=== PATIENT | female | born 1980 | race Caucasian/White ===

== ENCOUNTER 2020-01-03 04:16 | Emergency (ER) | payer OTHER ==
[~2020-01-03] VITALS: Ht 152.4 cm; Wt 47.6 kg
--- OUTSIDE RECORDS SUMMARY | ~2020-01-03 | XMS | Encounter Summary ---
Demographics + + + | Address | [address] | | | [place] [address] | + + + | Home Phone | | + + + | Preferred Language | Unknown | + + + | Marital Status | Single | + + + | Bahai Affiliation | 1013 | + + + | Race | Unknown | + + + | Ethnic Group | Unknown | + + + Author + + + | Author | [facility] | | | and [place] | + + + | Organization | [facility] | | | and [place] | + + + | Address | Unknown | + + + | Phone | Unavailable | + + + Support + + +---------+ + | Name | Relationship | Address | Phone | + + +---------+ + | Provided None | ECON | Unknown | | + + +---------+ + Care Team Providers + +------+ + | Care Reforestation Worker Name | Role | Phone | + +------+ + | Isabela Gage DO | PCP | | + +------+ + Reason for Visit + + + | Reason | Comments | + + + | Arm Pain | | + + + Encounter Details +--------+ + + + + | Date | Type | Department | Care Team | Description | +--------+ + + + + | 12/28/ | Emergency | [facility] | Bogdan, | Skin infection | | 2019 | | [facility] | Deuce Sainz MD [address] | (Primary Dx) | | | | CENTER [address] | [address] [place] | | | | | [place], [place] | [place] [address] | | | | | [address] | [phone] | | | | | [phone] | | | +--------+ + + + + Social History + + + +--------+------+ | Tobacco Use | Types | Packs/Day | Years | Date | | | | | Used | | + + + +--------+------+ | Current Every Day | Cigarettes | 0.5 | 20 | | | Smoker | | | | | + + + +--------+------+ + +---+---+---+ | Smokeless Tobacco: | | | | | Never Used | | | | + +---+---+---+ + + +---------+ + | Alcohol Use | Drinks/Week | oz/Week | Comments | + + +---------+ + | Yes | 1 Cans of beer | 1.0 | | + + +---------+ + + + + | Sex Assigned at | Date Recorded | | | | + + + | Not on file | | + + + + + + + | Job Start Date | Occupation | Industry | + + + + | Not on file | Not on file | Not on file | + + + + + + + + | Travel History | Travel Start | Travel End | + + + + + + | No recent travel history available. | + + documented as of this encounter Last Filed Vital Signs + + + + + | Vital Sign | Reading | Time Taken | Comments | + + + + + | Blood Pressure | 114/76 | 12/29/2019 5:07 PM | | | | | PDT | | + + + + + | Pulse | 123 | 12/29/2019 5:19 PM | | | | | PDT | | + + + + + | Temperature | 37.1 C (98.8 F) | 12/29/2019 5:07 PM | | | | | PDT | | + + + + + | Respiratory Rate | 18 | 12/29/2019 5:07 PM | | | | | PDT | | + + + + + | Oxygen Saturation | 100% | 12/29/2019 5:19 PM | | | | | PDT | | + + + + + | Inhaled Oxygen | - | - | | | Concentration | | | | + + + + + | Weight | 45.6 kg (100 lb 8.5 | 12/29/2019 5:07 PM | | | | oz) | PDT | | + + + + + | Height | 152.4 cm (5') | 12/29/2019 5:07 PM | | | | | PDT | | + + + + + | Body Mass Index | 19.63 | 12/29/2019 5:07 PM | | | | | PDT | | + + + + + documented in this encounter Discharge Instructions Instructions Deuce Mcfadden MD - 12/29/2019Take antibiotics as prescribed documented in this encounter Medications at Time of Discharge + + + +---------+ + + | Medication | Sig | Dispensed | Refills | Start | End Date | | | | | | Date | | + + + +---------+ + + | albuterol 90 | Inhale 2 puffs into | 1 | 0 | 03/05/20 | | | mcg/puff inhaler | the lungs every 6 | Inhaler | | 18 | | | | hours as needed for | | | | | | | Wheezing. | | | | | + + + +---------+ + + | baclofen | Take 1 tablet by | 60 | 0 | 10/04/19 | | | (LIORESAL) 20 mg | mouth 3 times daily. | tablet | | 19 | | | tablet | Prn | | | | | + + + +---------+ + + | cephalexin | Take 1 capsule by | 40 | 0 | 12/29/19 | | | (KEFLEX) 500 mg | mouth 4 times daily | capsule | | 20 | 0 | | capsule | for 10 days. | | | | | + + + +---------+ + + | cetirizine | Take 1 tablet by | | 1 | 08/23/20 | | | (ZYRTEC) 10 mg | mouth Daily. | | | 17 | | | tablet | | | | | | + + + +---------+ + + | clindamycin | Take 1 capsule by | 40 | 0 | 12/29/19 | | | (CLEOCIN) 300 MG | mouth 4 times daily | capsule | | 20 | 0 | | capsule | for 10 days. | | | | | + + + +---------+ + + | clonazePAM | take 1/2 tablet by | | 0 | 11/13/19 | | | (KLONOPIN) 2 MG | mouth daily if | | | 20 | | | tablet | needed for SEVERE | | | | | | | ANXIETY (MUST LAST | | | | | | | 30 DAYS) | | | | | + + + +---------+ + + | desvenlafaxine | take 1 tablet by | | 0 | 11/16/19 | | | (PRISTIQ) 25 mg ER | mouth daily | | | 20 | | | tablet | | | | | | + + + +---------+ + + | fluticasone | 1 spray by Nasal | 16 g | 2 | 06/25/20 | | | (FLONASE) 50 | route Daily. | | | 18 | | | mcg/nasal | | | | | | | sprayIndications: | | | | | | | Allergic rhinitis, | | | | | | | unspecified | | | | | | | seasonality, | | | | | | | unspecified trigger | | | | | | + + + +---------+ + + | gabapentin | take 1 tablet by | 90 | 2 | 10/11/19 | | | (NEURONTIN) 800 MG | mouth three times a | tablet | | 19 | | | tablet | day AND AN | | | | | | | ADDITIONAL 1 1/2 | | | | | | | TABLETS AT BEDTIME | | | | | + + + +---------+ + + | hydrOXYzine | Take 1 capsule by | 21 | 0 | 06/30/20 | | | (VISTARIL) 50 MG | mouth 3 times daily | capsule | | 19 | | | capsule | as needed for | | | | | | | Anxiety. | | | | | + + + +---------+ + + | LORazepam (ATIVAN) | take 1/2 tablet by | | 0 | 03/14/20 | | | 0.5 mg tablet | mouth OTHER | | | 19 | | | | NEEDED FOR ANXIETY | | | | | + + + +---------+ + + | metFORMIN | 1000 mg day twice | | 0 | 09/09/19 | | | (GLUCOPHAGE-XR) 500 | daily | | | 17 | | | mg 24 hr tablet | | | | | | + + + +---------+ + + | progesterone | Take 1 capsule by | | 0 | 07/23/20 | | | (PROMETRIUM) 100 mg | mouth Daily. For 10 | | | 17 | | | capsule | days each month | | | | | | | prior to menses | | | | | + + + +---------+ + + | sertraline | Take 1 tablet by | 90 | 0 | 07/24/20 | | | (ZOLOFT) 100 mg | mouth Daily. | tablet | | 18 | | | tablet | | | | | | + + + +---------+ + + | spironolactone | Take 1 tablet by | | 1 | 09/19/19 | | | (ALDACTONE) 50 mg | mouth Daily. | | | 18 | | | tablet | | | | | | + + + +---------+ + + | SUMAtriptan | Take 100 mg by mouth | | 0 | 12/03/19 | | | (IMITREX) 100 mg | as needed. | | | 20 | | | tablet | | | | | | + + + +---------+ + + | traZODone | take 1-2 tablets by | | 0 | 10/22/19 | | | (DESYREL) 100 mg | mouth at bedtime | | | 20 | | | tablet | | | | | | + + + +---------+ + + documented as of this encounter Plan of Treatment + +------+--------+ + + | Name | Type | Priori | Associated Diagnoses | Date/Time | | | | ty | | | + +------+--------+ + + | ED INFORMATION | MARGAUX | Routin | | 12/29/2019 4:43 PM | | EXCHANGE | | e | | PDT | + +------+--------+ + + documented as of this encounter Procedures + +--------+ + + + | Procedure Name | Priori | Date/Time | Associated Diagnosis | Comments | | | ty | | | | + +--------+ + + + | ED INFORMATION | Routin | 12/29/2019 | | | | EXCHANGE | e | 4:43 PM | | | | | | PDT | | | + +--------+ + + + +---+--------+ | | | | | Proced | | | ure | | | Note - | | | Sky, | | | Lab In | | | | | | Hlseve | | | n - | | | 12/28/ | | | 2019 | | | 4:44 | | | PM PDT | | | | | | Format | | | ting | | | of | | | this | | | note | | | might | | | be | | | differ | | | ent | | | from | | | the | | | origin | | | al.COL | | | LECTIV | | | E?NOTI | | | FICATI | | | ON?/ | | | | | | 0 | | | 16:42? | | | STROE, | | | | | | NATALY | | | | | | J?MRN: | | | | | | [id number] | | | [id number] | | | riteri | | | a Met | | | Care | | | Guidel | | | tameka | | | 4 | | | visits | | | in 60 | | | 3 | | | Facili | | | ties | | | in | | | 60Secu | | | rity | | | and | | | Safety | | | No | | | recent | | | | | | Securi | | | ty | | | Events | | | | | | curren | | | tly on | | | | | | fileED | | | Care | | | Guidel | | | tameka | | | from | | | [facility] | | | ys - | | | [place] | | | laLast | | | | | | Update | | | d: | | | 4/8/20 | | | 10:08 | | | AM | | | Care | | | Recomm | | | endati | | | on:Rec | | | eiving | | | | | | mental | | | | | | health | | | | | | servic | | | es | | | throug | | | h | | | [facility] | | | ys. | | | Please | | | | | | contac | | | t | | | [facility] | | | ys for | | | any | | | mental | | | | | | health | | | | | | concer | | | ns:Pen | | | dleton | | | | | | [phone] | | [phone] | | | Hermis | | | ton | | | [phone] | | | [phone] | | | Crisis | | | Line | | | [phone] | | | [phone] | | | These | | | are | | | guidel | | | tameka | | | and | | | the | | | provid | | | er | | | should | | | | | | exerci | | | se | | | clinic | | | al | | | judgme | | | nt | | | when | | | provid | | | ing | | | care.P | | | rescri | | | ption | | | Drug | | | Report | | | (12 | | | Mo.)Rx | | | | | | Detail | | | sFill | | | Date | | | Drug | | | Descri | | | ption | | | Qty. | | | Prescr | | | iber | | | CS MED | | | | | | 2020-0 | | | 4-06 | | | CLONAZ | | | EPAM 2 | | | MG | | | TABLET | | | 15 | | | ISABELA | | | | | | OLSWAN | | | APRIL 4 | | | 0 Rx | | | Summar | | | yMetri | | | c | | | Count | | | CS | | | II-V | | | Rx 1 | | | CS-II | | | Rx 0 | | | Quanti | | | ty | | | Dispen | | | sed 15 | | | | | | Unique | | | | | | Prescr | | | ibers | | | 1 | | | Unique | | | | | | Pharma | | | cies 1 | | | | | | Benzos | | | 1 | | | Opioid | | | s 0 | | | Long | | | Acting | | | | | | Opioid | | | s 0 | | | E.D. | | | Visit | | | Count | | | (12 | | | mo.)Fa | | | cility | | | | | | Visits | | | Low | | | Acuity | | | Good | | | Shephe | | | rd | | | Health | | | 1 0 | | | [facility] | | | | | | Health | | | and | | | Scienc | | | e | | | Univer | | | sity 2 | | | 0 | | | [facility] | | | [facility] | | | idge | | | Hospit | | | al 1 0 | | | | | | [facility] | | | | | | Region | | | al | | | Medica | | | l | | | Center | | | 3 0 | | | Provid | | | ence | | | St. | | | [place] | | | Medica | | | l | | | Center | | | 12 0 | | | Total | | | 19 0 | | | Note: | | | Visits | | | | | | indica | | | te | | | total | | | known | | | visits | | | . | | | Medica | | | id Low | | | | | | Acuity | | | Dx | | | are | | | the | | | number | | | of | | | primar | | | y | | | diagno | | | ses on | | | the | | | Medica | | | id's | | | Low | | | Acuity | | | dx | | | list. | | | | | | Recent | | | | | | Emerge | | | ncy | | | Depart | | | ment | | | Visit | | | [facility] | | | yShowi | | | ng 10 | | | most | | | recent | | | | | | visits | | | out | | | of 19 | | | in the | | | past | | | 12 | | | months | | | Date | | | Facili | | | ty | | | City | | | State | | | Type | | | Diagno | | | ses or | | | Chief | | | | | | Compla | | | int | | | Apr | | | 26, | | | 2020 | | | Provid | | | ence | | | St. | | | [place] | | | [facility] | | | [place] | | | [place] | | | Emerge | | | ncy | | | | | | Dizzin | | | ess; | | | Arm | | | Pain | | | Apr | | | 19, | | | 2020 | | | [facility] | | | [facility] | | | idge | | | H. | | | [place] | | | [place] | | | Emerge | | | ncy | | | Chief | | | Compla | | | int: | | | MULTIP | | | LE | | | COMPLA | | | INTS | | | Apr 8, | | | 2020 | | | [facility] | | | | | | Health | | | and | | | Scienc | | | e | | | Univer | | | sity | | | [place] | | | [place] | | | Emerge | | | ncy | | | | | | 10,800 | | | . | | | Medica | | | tion | | | reques | | | t | | | 18,400 | | | . | | | Pain, | | | unspec | | | ified | | | | | | 18,400 | | | . | | | Other | | | injury | | | of | | | unspec | | | ified | | | body | | | region | | | , | | | initia | | | l | | | encoun | | | ter | | | Apr 8, | | | 2020 | | | [facility] | | | | | | Health | | | and | | | Scienc | | | e | | | Univer | | | sity | | | [place] | | [place] | | | Emerge | | | ncy | | | | | | 10,800 | | | . | | | Infect | | | ion | | | | | | 10,800 | | | . L | | | Arm/He | | | adache | | | | | | 18,400 | | | . | | | Person | | | al | | | histor | | | y of | | | other | | | diseas | | | es of | | | the | | | nervou | | | s | | | system | | | and | | | | | | 18,400 | | | . | | | Cutane | | | ous | | | absces | | | s, | | | unspec | | | ified | | | | | | 18,400 | | | . | | | Other | | | stimul | | | ant | | | abuse, | | | | | | uncomp | | | licate | | | d | | | 18,400 | | | . | | | Parest | | | hesia | | | of | | | skin | | | Apr 5, | | | 2020 | | | [facility] | | | | | | Region | | | al | | | [facility] | | | [place] | | | [place] | | | Emerge | | | ncy | | | | | | Spasms | | | | | | Other | | | stimul | | | ant | | | abuse, | | | | | | uncomp | | | licate | | | d | | | Other | | | proble | | | ms | | | relate | | | d to | | | lifest | | | yle | | | Apr 5, | | | 2020 | | | Provid | | | ence | | | St. | | | [place] | | | [facility] | | | [place] | | | [place] | | | Emerge | | | ncy | | | | | | Halluc | | | inatio | | | ns | | | Other | | | stimul | | | ant | | | abuse, | | | | | | uncomp | | | licate | | | d Apr | | | 3, | | | 2020 | | | Provid | | | ence | | | St. | | | [place] | | | [facility] | | | [place] | | | [place] | | | Emerge | | | ncy | | | | | | Medica | | | l | | | Compla | | | cation | | | s from | | | alc | | | and | | | drug | | | abuse | | | | | | Spasms | | | | | | Other | | | stimul | | | ant | | | abuse, | | | | | | uncomp | | | licate | | | d Mar | | | 29, | | | 2020 | | | Provid | | | ence | | | St. | | | [place] | | | [facility] | | | [place] | | | [place] | | | Emerge | | | ncy | | | | | | CP,sob | | | | | | Pain | | | | | | Tachyc | | | ardia | | | | | | Restle | | | ssness | | | and | | | agitat | | | ion | | | Other | | | | | | stimul | | | ant | | | use, | | | unspec | | | ified | | | with | | | intoxi | | | cation | | | , | | | unspec | | | ifi | | | Panic | | | | | | disord | | | er | | | [episo | | | dic | | | paroxy | | | smal | | | anxiet | | | y] | | | Mar | | | 18, | | | 2020 | | | Provid | | | ence | | | St. | | | [place] | | | [facility] | | | [place] | | | [place] | | | Emerge | | | ncy | | | | | | needle | | | stuck | | | in | | | arm | | | | | | Foreig | | | n Body | | | in | | | Skin | | | | | | Other | | | injury | | | of | | | unspec | | | ified | | | body | | | region | | | , | | | initia | | | l | | | encoun | | | ter | | | Mar | | | 14, | | | 2020 | | | [facility] | | | | | | Region | | | al | | | [facility] | | | [place] | | | [place] | | | Emerge | | | ncy | | | | | | Prurit | | | is | | | Advers | | | e | | | effect | | | of | | | unspec | | | ified | | | drugs, | | | | | | medica | | | ments | | | and | | | biolog | | | ic | | | Prurit | | | us, | | | unspec | | | ified | | | | | | Urtica | | | rosario, | | | unspec | | | ified | | | | | | Recent | | | | | | Inpati | | | ent | | | Visit | | | [facility] | | | yNo | | | record | | | ed | | | inpati | | | ent | | | visits | | | . Care | | | | | | TeamPr | | | ovider | | | | | | Specia | | | lty | | | Phone | | | Fax | | | Servic | | | e | | | Dates | | | ConneX | | | ions, | | | Gasper | | | o | | | [facility] | | | -, | | | [facility] | | | Commun | | | ity | | | Health | | | | | | Worker | | | ([phone]) | | | | | | [phone] | | | [phone] | | | Mar | | | 14, | | | 2020 - | | | | | | Curren | | | t | | | [facility] | | | tive | | | Portal | | | This | | | patien | | | t has | | | regist | | | ered | | | at the | | | | | | Provid | | | ence | | | St. | | | [place] | | | Medica | | | l | | | Center | | | | | | Emerge | | | ncy | | | Depart | | | ment | | | For | | | more | | | inform | | | ation | | | visit: | | | | | | https: | | | //prov | | | .colle | | | ctivem | | | edical | | | [email or web address]/n | | | otify/ | | | [email or web address] | | | [email or web address] | | | [email or web address] | | | [email or web address] | | | [email or web address] | | | [email or web address] | | | | | | PLEASE | | | NOTE: | | | 1. | | | Any | | | care | | | recomm | | | endati | | | ons | | | and | | | other | | | clinic | | | al | | | inform | | | ation | | | are | | | provid | | | ed as | | | guidel | | | tameka | | | or for | | | | | | histor | | | ical | | | purpos | | | es | | | only, | | | and | | | provid | | | ers | | | should | | | | | | exerci | | | se | | | their | | | own | | | clinic | | | al | | | judgme | | | nt | | | when | | | provid | | | ing | | | care. | | | 2. | | | You | | | may | | | only | | | use | | | this | | | inform | | | ation | | | for | | | purpos | | | es of | | | treatm | | | ent, | | | paymen | | | t or | | | health | | | care | | | operat | | | ions | | | activi | | | ties, | | | and | | | subjec | | | t to | | | the | | | limita | | | tions | | | of | | | applic | | | able | | | Colle[facility] | | | tive | | | Polici | | | es. | | | 3. | | | You | | | should | | | | | | consul | | | t | | | direct | | | ly | | | with | | | the | | | organi | | | zation | | | that | | | provid | | | ed a | | | care | | | guidel | | | ine or | | | other | | | | | | clinic | | | al | | | histor | | | y with | | | any | | | questi | | | ons | | | about | | | additi | | | onal | | | inform | | | ation | | | or | | | accura | | | cy or | | | comple | | | teness | | | of | | | inform | | | ation | | | provid | | | ed.? | | | 2020 | | | [facility] | | | tive | | | Medica | | | l | | | [employer] | | | logies | | | , Inc[employer] | | | - | | | [email or web address] | | | llecti | | | vemedi | | | [email or web address] | | | m | +---+--------+ documented in this encounter Visit Diagnoses + + | Diagnosis | + + | Skin infection - Primary Unspecified local infection of skin and subcutaneous tissue | + + documented in this encounter Administered Medications + +--------+ +--------+------+------+ | Medication Order | MAR | Action | Dose | Rate | Site | | | Action | Date | | | | + +--------+ +--------+------+------+ | cephalexin (KEFLEX) capsule 500 | Given | 12/29/19 | 500 mg | | | | mg 500 mg, Oral, ONCE, Sun | | 20 5:55 | | | | | 12/29/19 at 1730, For 1 dose, | | PM PDT | | | | | Indications: NON-PURULENT SKIN | | | | | | | AND SOFT TISSUE INFECTION | | | | | | + +--------+ +--------+------+------+ +---+---+ | | | +---+---+ + +-------+ +--------+---+---+ | clindamycin (CLEOCIN) capsule | Given | 12/29/19 | 300 mg | | | | 300 mg 300 mg, Oral, ONCE, Sun | | 20 5:55 | | | | | 12/29/19 at 1730, For 1 dose, | | PM PDT | | | | | Indications: NON-PURULENT SKIN | | | | | | | AND SOFT TISSUE INFECTION | | | | | | + +-------+ +--------+---+---+ +---+---+ | | | +---+---+ documented in this encounter"
--- OUTSIDE RECORDS SUMMARY | ~2020-01-03 | XMS | Encounter Summary ---
Demographics + + + | Address | [address] | | | [place] [address] | + + + | Home Phone | | + + + | Preferred Language | Unknown | + + + | Marital Status | Single | + + + | Judaism Affiliation | 1013 | + + + | Race | Unknown | + + + | Ethnic Group | Unknown | + + + Author + + + | Author | [facility] | | | and [place] | + + + | Organization | [facility] | | | and [place] | [...] Team Providers + +------+ + | Care Nail Welter Name | Role | Phone | + +------+ + | Katy Sanford MD | PCP | | + +------+ + Reason for Visit +---------+ + | Reason | Comments | +---------+ + | No Show | | +---------+ + Encounter Details +--------+ + + + + | Date | Type | Department | Care Team | Description | +--------+ + + + + | 10/09/ | Telephone | [facility] [place] | Gill Cantu, | No Show | | 2019 | | [facility] | Aide | | | | | THERAPY [address] | | | | | [address] [place] | | | | | | [address] | | | | | | [phone] | | | +--------+ + + + [...]
--- OUTSIDE RECORDS SUMMARY | ~2020-01-03 | XMS | Encounter Summary ---
Demographics + + + | Address | [address] | | | [place] [address] | + + + | Home Phone | | + + + | Preferred Language | Unknown | + + + | Marital Status | Single | + + + | Religion Affiliation | 1013 | + + + | Race | Unknown | + + + | Ethnic Group | Unknown | + + + Author + + + | Author | [facility] | | | and [place] | + + + | Organization | [facility] | | | and [...] Team Providers + +------+ + | Care Leaf Conditioner Helper Name | Role | Phone | + +------+ + PCP | Unavailable | + +------+ + Encounter Details +--------+ + + + + | Date | Type | Department | Care Team | Description | +--------+ + + + + | 09/30/ | [facility] | [facility] | Edi Sprague | | | 2010 | Encounter | MED CTR LABORATORY | MD [address] | | | | | [address] [place] | [place] | | | | | [place] | [address] | | | | | [address] | | | | | | [phone] | | | +--------+ + + + [...]
--- OUTSIDE RECORDS SUMMARY | ~2020-01-03 | XMS | Encounter Summary ---
Demographics + + + | Address | [address] | | | [place] [address] | + + + | Home Phone | | + + + | Preferred Language | Unknown | + + + | Marital Status | Single | + + + | Buddhism Affiliation | 1013 | + + + | Race | Unknown | + + + | Ethnic Group | Unknown | + + + Author + + + | Author | [facility] | | | and [place] | + + + | Organization | [facility] | | | and [...] Team Providers + +------+ + | Care Tdp Displays Analyst Name | Role | Phone | [...] Refill | | 2019 | | [facility] | [address] | | | | | [address] | [place] | | | | | [place], [place] | [address] | | | | | [address] | | | | | | [phone] | | | +--------+--------+ + + + [...]
--- OUTSIDE RECORDS SUMMARY | ~2020-01-03 | XMS | Encounter Summary ---
Demographics + + + | Address | [address] | | | [place] [address] | + + + | Home Phone | | + + + | Preferred Language | Unknown | + + + | Marital Status | Single | + + + | Methodist Affiliation | 1013 | + + + | Race | Unknown | + + + | Ethnic Group | Unknown | + + + Author + + + | Author | [facility] | | | and [place] | + + + | Organization | [facility] | | | and [place] | + [...] Team Providers + +------+ + | Care Fence Supervisor Name | Role | Phone | + +------+ + PCP | Unavailable | + +------+ + Encounter Details +--------+ + + + + | Date | Type | Department | Care Team | Description | +--------+ + + + + | 11/08/ | [facility] | [facility] | Edi Sprague | | | 2010 | Encounter | MED CTR MP INTRA OP | F, MD [address] [facility] | | | | | [address] | [place] | | | | | [place] | [address] | | | | | [address] | | | | | | [phone] | | | +--------+ + + + [...] + + + | CBC WITH | Routin | 11/08/2010 | | Results for this | | DIFFERENTIAL | e | 9:49 AM | | procedure are in the | | | | PST | | results section. | + +--------+ + + + documented in this encounter Results CBC with Differential (11/08/2010 9:49 AM PST) + +---------+ + + + | Component | Value | Ref Range | Performed | Pathologist | | | | | At | Signature | + +---------+ + + + | WBC | 6.6 | 4.0 - 11.0 K/uL | [facility] | | | | | | [facility] | | | | | | [facility] | | | | | | [facility] - | | | | | | LABORATORY | | + +---------+ + + + | RBC | 3.78 | 3.70 - 5.20 | [facility] | | | | | M/uL | [facility] | | | | | | MEDICAL | | | | | | C[facility] - | | | | | | LABORATORY | | + +---------+ + + + | Hemoglobin | 12.4 | 11.5 - 16.0 | [facility] | | | | | gm/dL | [facility] | | | | | | MEDICAL | | | | | | CENTER - | | | | | | LABORATORY | | + +---------+ + + + | Hematocrit | 37.0 | 34.0 - 47.0 % | [facility] | | | | | | [facility] | | | | | | [facility]ICAL | | | | | | CENTER - | | | | | | LABORATORY | | + +---------+ + + + | MCV | 97.8 | 83.0 - 101.0 fL | [facility] | | | | | | [facility] | | | [facility] | | [facility] | | | | | | C[facility] - | | | | | | LABORATORY | | + +---------+ + + + | MCH | 32.8 | 28.0 - 35.0 pg | [facility] | | | | | | [facility] | [facility] | | | | | | [facility] - | | | | | | LABORATORY | | + +---------+ + + + | MCHC | 33.6 | 32.0 - 36.0 | [facility] | | | | | g/dL | [facility] | | | | | | [facility] | | | | | | CENTER - | | | | | | LABORATORY | | + +---------+ + + + | RDW-CV | 12.7 | <15.0 % | [facility] | | | | | | [facility] | | | | | | [facility] | | | | | | [facility] - | | | | | | LABORATORY | | + +---------+ + + + | Platelet | 212 | 140 - 440 K/uL | [facility] | | | Count | | | [facility] | | | | | | [facility] | | | | | | CENTER - | | | | | | LABORATORY | | + +---------+ + + + | % | 64.8 | 45 - 82 % | [facility] | | | Neutrophils | | | [facility] | | | | | | [facility]ICAL | | | | | | CENTER - | | | | | | LABORATORY | | + +---------+ + + + | % | 23.8 | 20 - 45 % | [facility] | | | Lymphocytes | | | [facility] | | | | | | [facility]ICAL | | | | | | CENTER - | | | | | | LABORATORY | | + +---------+ + + + | % Monocytes | 7.5 | 4 - 12 % | [facility] | | | | | | [facility] | | | | | | [facility] | | | | | | CENTER - | | | | | | LABORATORY | | + +---------+ + + + | % | 1.6 | 0 - 5 % | [facility] | | | Eosinophils | | | [facility] | | | | | | [facility] | | | | | | CENTER - | | | | | | LABORATORY | | + +---------+ + + + | % Basophils | 2.3 (H) | 0 - 1 % | [facility] | | | | | | [facility] | | | | | | [facility] | | | | | | [facility] - | | | | | | LABORATORY | | + +---------+ + + + | Absolute | 4.2 | 1.8 - 8.5 K/uL | [facility] | | | Neutrophils | | | [facility] | | | | | | [facility]ICAL | | | | | | CENTER - | | | | | | LABORATORY | | + +---------+ + + + | Absolute | 1.6 | 0.6 - 3.2 K/uL | [facility] | | | Lymphocytes | | | [facility] | | | | | | [facility]ICAL | | | | | | CENTER - | | | | | | LABORATORY | | + +---------+ + + + | Absolute | 0.5 | 0.0 - 1.0 K/uL | [facility] | | | Monocytes | | | [facility] | | | | | | [facility]ICAL | | | | | | CENTER - | | | | | | LABORATORY | | + +---------+ + + + | Absolute | 0.1 | 0.0 - 0.4 K/uL | [facility] | | | Eosinophils | | | [facility] | | | | | | [facility] | | | | | | CENTER - | | | | | | LABORATORY | | + +---------+ + + + | Absolute | 0.1 | 0.0 - 0.1 K/uL | [facility] | | | Basophils | | | [facility] | | | | | | MEDICAL | | | | | | CENTER - | | | | | | LABORATORY | | + +---------+ + + + + + | Specimen | + + | | + + + + + + + | Performing | Address | City/State/Zipcode | Phone Number | | Organization | | | | + + + + + | [facility] | [address] | [place] | [phone] | | [facility] | | [address] | | | - LABORATORY | | | | + + + + + | [facility] | [address] | [place], [place] | | | [facility] | | [address] [place] [address] | | | - LABORATORY | | | | + + + + + documented in this encounter Visit Diagnoses Not on filedocumented in this encounter"
--- OUTSIDE RECORDS SUMMARY | ~2020-01-03 | XMS | Encounter Summary ---
Demographics + + + | Address | [address] | | | [place] [address] | + + + | Home Phone | | + + + | Preferred Language | Unknown | + + + | Marital Status | Single | + + + | Jew Affiliation | 1013 | + + + | Race | Unknown | + + + | Ethnic Group | Unknown | + + + Author + + + | Author | [facility] | | | and [place] | + + + | Organization | [facility] | | | and [place] [...] Team Providers + +------+ + | Care Line Patrolman Name | Role | Phone | + +------+ + PCP | Unavailable | + +------+ + Encounter Details +--------+ + + + + | Date | Type | Department | Care Team | Description | +--------+ + + + + | 04/09/ | Hospital | [facility] | Saleem Toure, | | | 2011 | Encounter | MED CTR EMERGENCY | [address] | | | | | CENTER [address] | [facility] | | | | | [place] | [place] [address] | | | | | [address] | [phone] | | | | | [phone] | | | +--------+ + + + [...]
--- OUTSIDE RECORDS SUMMARY | ~2020-01-03 | XMS | Encounter Summary ---
Demographics + + + | Address | [address] | | | [place] [address] | + + + | Home Phone | | + + + | Preferred Language | Unknown | + + + | Marital Status | Single | + + + | Rastafari Affiliation | 1013 | + + + | Race | Unknown | + + + | Ethnic Group | Unknown | + + + Author + + + | Author | [facility] | | | and [place] | + + + | Organization | [facility] | | | and [place] | [...] Team Providers + +------+ + | Care Datastage Consultant Name | Role | Phone | + +------+ + | No, Physician | PCP | Unavailable | + +------+ + Encounter Details +--------+ + + + + | Date | Type | Department | Care Team | Description | +--------+ + + + + | 08/12/ | [facility] | [facility] | Edi Sprague | Normal , | | 2014 | Encounter | [address] | MD José [address] | second trimester | | | | [place] | [place] | | | | | [address] | [address] | | | | | [phone] | | | +--------+ + + + + Social History + +-------+ +--------+------+ | Tobacco Use | Types | Packs/Day | Years | Date | | | | | Used | | + +-------+ +--------+------+ | Current Every Day | | 0.25 | 15 | | | Smoker | | | | | + +-------+ +--------+------+ + + +---------+ + | Alcohol Use | Drinks/Week | oz/Week | Comments | + + +---------+ + | No | | | | + + +---------+ + + [...] + + documented as of this encounter Medications at Time of Discharge + + + +---------+--------+ + | Medication | Sig | Dispensed | Refills | Start | End Date | | | | | | Date | | + + + +---------+--------+ + | calcium carbonate | Take 2 tablets by | | 0 | | | | (TUMS) 500 mg | mouth Daily. | | | | 7 | | chewable tablet | | | | | | + + + +---------+--------+ + | 27-0.8 mg | Take 1 tablet by | | 0 | | | | multivitamin tablet | mouth Daily. | | | | 7 | + + + +---------+--------+ + | promethazine | Take 12.5 mg by | | 0 | | | | (PHENERGAN) 12.5 MG | mouth every 6 hours | | | | 6 | | tablet | as needed for | | | | | | | Nausea. | | | | | + + + +---------+--------+ + documented as of this encounter Plan of Treatment Not on filedocumented as of this encounter Procedures + +--------+ + + + | Procedure Name | Priori | Date/Time | Associated Diagnosis | Comments | | | ty | | | | + +--------+ + + + | US OB FOLLOW UP | Routin | 08/12/2015 | Normal , | Results for this | | TRANSABDOMINAL | e | 1:25 PM | second trimester | procedure are in the | | | | PST | | results section. | + +--------+ + + + documented in this encounter Results US OB Follow Up Transabdominal (08/12/2015 1:25 PM PST) + + | Specimen | + + | | + + + + + | Narrative | Performed At | + + + | EXAM: US OB FOLLOW UP TRANSABDOMINAL and 08/12/2015 1:25 PM | [facility] | | HISTORY: NORMAL . COMPARISON: June 22, 2015. | | | FINDINGS: BPD: 68.5 mm: 27 weeks 4 days HC: 253.2 mm: 27 weeks 3 | | | days AC: 229.1 mm: 27 weeks 2 days FL: 51.7 mm: 27 weeks 4 days | | | EFW: 1074 g, corresponding to 43rd percentile by LMP and 37 percentile | | | by ultrasound. HC/AC ratio: 1.11 Composite estimated | | | gestational age by U/S: 27 weeks 3 days correlating well with LMP | | | dating of 27 weeks 2 days heart rate: 150 bpm, with a normal | | | cardiac rhythm. The cervix is long and closed, measuring 5 cm in | | | length. The placenta is posterior, without evidence of placenta | | | previa. The fetus is in cephalic. SANJUANITA = 17.7 cm. | | | Active motion is seen. The umbilical cord insertion is well | | | seen and is unremarkable. IMPRESSION - Single live | | | intrauterine gestation. Good correlation to clinical and | | | sonographic dating. Cord insertion adequately visualized on this | | | study. Dictated and Signed by: Hayden Gomez MD | | | Electronically signed: 08/12/2015 3:54 PM | | + + + + + | Procedure Note | + + | Sky, Rad Results In - 08/12/2015 3:57 PM PST EXAM: US OB FOLLOW UP TRANSABDOMINAL | | and 08/12/2015 1:25 PMHISTORY: NORMAL . COMPARISON: June 22 | | 2014.FINDINGS:BPD: 68.5 mm: 27 weeks 4 daysHC: 253.2 mm: 27 weeks 3 daysAC: 229.1 mm: 27 | | weeks 2 daysFL: 51.7 mm: 27 weeks 4 daysEFW: 1074 g, corresponding to 43rd percentile | | by LMP and 37 percentile byultrasound.HC/AC ratio: 1.11Composite estimated gestational | | age by U/S: 27 weeks 3 days correlating wellwith LMP dating of 27 weeks 2 daysFetal | | heart rate: 150 bpm, with a normal cardiac rhythm.The cervix is long and closed, | | measuring 5 cm in length.The placenta is posterior, without evidence of placenta previa. | | The fetus is in cephalic. SANJUANITA = 17.7 cm. Active motion is seen. The umbilical | | cord insertion is well seen and isunremarkable.IMPRESSION -Single live intrauterine | | gestation. Good correlation to clinical andsonographic dating.Cord insertion adequately | | visualized on this study.Dictated and Signed by: Hayden Gomez MD Electronically | | signed: 08/12/2015 3:54 PM | | | |HC/AC ratio: 1.11 | |Composite estimated gestational age by U/S: 27 weeks 3 days correlating well | |with LMP dating of 27 weeks 2 days | | heart rate: 150 bpm, with a normal cardiac rhythm. | | | |The cervix is long and closed, measuring 5 cm in length. | |The placenta is posterior, without evidence of placenta previa. | | | |The fetus is in cephalic. | | | |SANJUANITA = 17.7 cm. | | | |Active motion is seen. The umbilical cord insertion is well seen and is | |unremarkable. | | | |IMPRESSION - | | | |Single live intrauterine gestation. Good correlation to clinical and | |sonographic dating. | | | |Cord insertion adequately visualized on this study. | | | |Dictated and Signed by: Hayden Gomez MD | | Electronically signed: 08/12/2015 3:54 PM | + + + +---------+ + + | Performing | Address | City/State/Zipcode | Phone Number | | Organization | | | | + +---------+ + + | [facility] | | | | + +---------+ + + documented in this encounter Visit Diagnoses + + | Diagnosis | + + | Normal , second trimester | + + documented in this encounter"
--- OUTSIDE RECORDS SUMMARY | ~2020-01-03 | XMS | Clinical Summary ---
Demographics + + + | Address | [address] | | | [place] [address] | + + + | Home Phone | | + + + | Preferred Language | Unknown | + + + | Marital Status | Single | + + + | Uatsdin Affiliation | 1013 | + + + | Race | Unknown | + + + | Ethnic Group | Unknown | + + + Author + + + | Author | [facility] | | | and [place] | + + + | Organization | [facility] | | | and [place] [...] Team Providers + +------+ + | Care Time Checker Name | Role | Phone | + +------+ + | Isabela Gage DO | PCP | | + +------+ + Allergies + + + + + + | Active Allergy | Reactions | Severity | Noted | Comments | | | | | Date | | + + + + + + | Sulfamethoxazole-Tri | Itching | | 11/16/19 | | | methoprim | | | 20 | | + + + + + + | Bupropion | Anxiety, Other (See | Low | 07/29/20 | Anger AKA | | | Comments) | | 15 | "Wellbutrin" | + + + + + + | Codeine | Other (See Comments) | Low | 07/29/20 | No pain relief, | | | | | 15 | "makes me loopy" | + + + + + + | Ondansetron | Anxiety | Medium | 07/29/20 | "Extreme anxiety" | | | | | 15 | AKA "Zofran" | + + + + + + | Tramadol | Other (See Comments) | Low | 07/29/20 | No pain relief, | | | | | 15 | "makes me loopy" | + + + + + + Medications + + + +---------+------+------+-------+ | Medication | Sig | Dispensed | Refills | Star | End | Statu | | | | | | t | Date | s | | | | | | Date | | | + + + +---------+------+------+-------+ | metFORMIN | 1000 mg day twice | | 0 | 01/0 | | Activ | | (GLUCOPHAGE-XR) 500 | daily | | | 02/21 | | e | | mg 24 hr tablet | | | | 17 | | | + + + +---------+------+------+-------+ | cetirizine | Take 1 tablet by | | 1 | /2 | | Activ | | (ZYRTEC) 10 mg | mouth Daily. | | | 020 | | e | | tablet | | | | 17 | | | + + + +---------+------+------+-------+ | progesterone | Take 1 capsule by | | 0 | 07/05 | | Activ | | (PROMETRIUM) 100 mg | mouth Daily. For 10 | | | 05/24 | | e | | capsule | days each month | | | 17 | | | | | prior to menses | | | | | | + + + +---------+------+------+-------+ | spironolactone | Take 1 tablet by | | 1 | 09/04 | | Activ | | (ALDACTONE) 50 mg | mouth Daily. | | | 02/21 | | e | | tablet | | | | 18 | | | + + + +---------+------+------+-------+ | albuterol 90 | Inhale 2 puffs into | 1 | 0 | 07/0 | | Activ | | mcg/puff inhaler | the lungs every 6 | Inhaler | | 2/20 | | e | | | hours as needed for | | | 18 | | | | | Wheezing. | | | | | | + + + +---------+------+------+-------+ | fluticasone | 1 spray by Nasal | 16 g | 2 | 10/2 | | Activ | | (FLONASE) 50 | route Daily. | | | 2/20 | | e | | mcg/nasal | | | | 18 | | | | sprayIndications: | | | | | | | | Allergic rhinitis, | | | | | | | | unspecified | | | | | | | | seasonality, | | | | | | | | unspecified trigger | | | | | | | + + + +---------+------+------+-------+ | sertraline | Take 1 tablet by | 90 | 0 | 11/2 | | Activ | | (ZOLOFT) 100 mg | mouth Daily. | tablet | | 0/20 | | e | | tablet | | | | 18 | | | + + + +---------+------+------+-------+ | baclofen | Take 1 tablet by | 60 | 0 | 01/3 | | Activ | | (LIORESAL) 20 mg | mouth 3 times daily. | tablet | | 1/20 | | e | | tablet | Prn | | | 19 | | | + + + +---------+------+------+-------+ | gabapentin | take 1 tablet by | 90 | 2 | 02/0 | | Activ | | (NEURONTIN) 800 MG | mouth three times a | tablet | | 7/20 | | e | | tablet | day AND AN | | | 19 | | | | | ADDITIONAL 1 1/2 | | | | | | | | TABLETS AT BEDTIME | | | | | | + + + +---------+------+------+-------+ | hydrOXYzine | Take 1 capsule by | 21 | 0 | 10/2 | | Activ | | (VISTARIL) 50 MG | mouth 3 times daily | capsule | | 03/23 | | e | | capsule | as needed for | | | 19 | | | | | Anxiety. | | | | | | + + + +---------+------+------+-------+ +---+ + | | Additional | | | InformationPatient | | | not taking. Reason: | | | Not Available, | | | Reported on | | | 12/31/2019 11:53 PM | +---+ + + + +---------+---+------+------+-------+ | desvenlafaxine | take 1 tablet by | | 0 | 03/1 | | Activ | | (PRISTIQ) 25 mg ER | mouth daily | | | 4/20 | | e | | tablet | | | | 20 | | | + + +---------+---+------+------+-------+ | clonazePAM | take 1/2 tablet by | | 0 | 03/1 | | Activ | | (KLONOPIN) 2 MG | mouth daily if | | | 1/20 | | e | | tablet | needed for SEVERE | | | 20 | | | | | ANXIETY (MUST LAST | | | | | | | | 30 DAYS) | | | | | | + + +---------+---+------+------+-------+ | LORazepam (ATIVAN) | take 1/2 tablet by | | 0 | 07/1 | | Activ | | 0.5 mg tablet | mouth OTHER | | | 1/20 | | e | | | NEEDED FOR ANXIETY | | | 19 | | | + + +---------+---+------+------+-------+ | SUMAtriptan | Take 100 mg by mouth | | 0 | 03/3 | | Activ | | (IMITREX) 100 mg | as needed. | | | 1/20 | | e | | tablet | | | | 20 | | | + + +---------+---+------+------+-------+ | traZODone | take 1-2 tablets by | | 0 | 02/1 | | Activ | | (DESYREL) 100 mg | mouth at bedtime | | | 8/20 | | e | | tablet | | | | 20 | | | + + +---------+---+------+------+-------+ | cephalexin | Take 1 capsule by | 40 | 0 | 04/2 | 05/0 | Activ | | (KEFLEX) 500 mg | mouth 4 times daily | capsule | | 6/20 | 6/20 | e | | capsule | for 10 days. | | | 20 | 20 | | + + +---------+---+------+------+-------+ | clindamycin | Take 1 capsule by | 40 | 0 | 04/2 | 05/0 | Activ | | (CLEOCIN) 300 MG | mouth 4 times daily | capsule | | 6/20 | 6/20 | e | | capsule | for 10 days. | | | 20 | 20 | | + + +---------+---+------+------+-------+ Active Problems + + + | Problem | Noted Date | + + + | Anxiety with depression | 08/10/2018 | + + + + + | Last Assessment & Plan: We are providing her with a list of | | mental health counselors for her to call and make an appointment | | according to her insurance coverage.Discussed that cognitive | | behavioral therapy could be as beneficial as medication and both | | combined even better.Will start BuSpar 10 mg 3 times a day and | | continue sertraline 100 mg.I explained to her that I would like a | | psychiatric consultation if this doesn't work because of the use | | of marijuana I would like not to prescribe controlled | | substances. | + + +--------+ + | Smoker | 08/10/2018 | +--------+ + + + | Overview: 09/05 PPD for 17 years | | Last Assessment & Plan: Smoking cessation encouraged. | + + + + + | Allergic rhinitis due to allergen | 06/25/2018 | + + + + + | Last Assessment & Plan: to avoid dust mites, wash sheets | | once a week and expose them to the sun. Avoid exposure to dust, | | vacuum the carpets at least twice a week and dust furniture with | | a damp cloth. Avoid pet, dust mold, pollen and grass exposures. | + + + + + | Subacute maxillary sinusitis | 06/25/2018 | + + + + + | Last Assessment & Plan: Start Ember discussed that the | | Zithromax is not the appropriate antibiotic for sinus/ sinusitis; | | that he was started because of her insistence over the phone to | | be treated for pertussis despite my contraindication to come to | | be evaluated because she had no cough after a week of being | | congested.The pertussis test was obtained today, she still could | | have been no cough. | + + + + + | Substance abuse | 03/05/2018 | + + + + + | Last Assessment & Plan: THC: aware that only one RX for | | narcotics short term will be given to her today. If she wants to | | continue, she has to quit THC or find another doctor and the pain | | clinic (which has the same criteria). 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 | + + Encounters +--------+ + + + + | Date | Type | Specialty | Care Team | Description | +--------+ + + + + | 01/01/ | Telephone | Case Management | Leesa Salas | ED Follow-up (after | | 2019 | | | | ED follow up) | +--------+ + + + + | 12/30/ | Emergency | Emergency Medicine | Chapito Wilson MD | Polysubstance abuse | | 2019 - | | | | ([facility]) (Primary Dx) | | | | | | | | 12/31/ | | | | | | 2019 | | | | | +--------+ + + + + | 12/28/ | Emergency | Emergency Medicine | Bogdan, | Skin infection | | 2019 | | | Deuce Sainz MD | (Primary Dx) | +--------+ + + + + | 12/10/ | Imaging | Radiology | Liang, | | | 2019 | Exam | | MD [place] | | +--------+ + + + + | 12/10/ | Imaging | Radiology | Provider, | | 2019 | Exam | | MD [place] | | +--------+ + + + + | 12/09/ | Office | General Surgery | Vivien Madera MD | Foreign body in skin | | 2019 | Visit | | | (Primary Dx) | +--------+ + + + + | 12/07/ | Emergency | Emergency Medicine | Arcenio Daniels | Methamphetamine use | | 2019 | | | DO Jim | ([facility]) (Primary Dx); | | | | | | Alcohol use | +--------+ + + + + | 12/07/ | Emergency | Emergency Medicine | Pawel Clay, | Methamphetamine | 2019 | | | | abuse ([facility]) (Primary | | | | | | Dx) | +--------+ + + + + | 12/07/ | Telephone | Case Management | Antonia Goyal | ED Follow-up (f/u | | 2019 | | | | methamphetamine | | | | | | abuse) | +--------+ + + + + | 12/06/ | Telephone | Case Management | Antonia Goyal | ED Follow-up | | 2019 | | | | (amphetamine abuse) | +--------+ + + + + | 12/05/ | Emergency | Emergency Medicine | Jim Hurd | Amphetamine abuse | | 2019 | | | MD David Tripathi, | ([facility]) (Primary Dx) | | | | | Wally Santiago MD | | +--------+ + + + + | 12/05/ | Abstract | General Surgery | Liang, | | | 2019 | | | MD [place] | | +--------+ + + + + | 12/05/ | Abstract | General Surgery | Provider, | | | 2019 | | | MD [place] | | +--------+ + + + + | 12/05/ | Telephone | Case Management | Antonia Goyal | ED Follow-up (ED f/u | | 2019 | | | | amphetamine abuse) | +--------+ + + + + | 12/01/ | Telephone | Case Management | Antonia Goyal ED Follow-up (ED f/u | | 2019 | | | | drug use, panic | | | | | | attack) | +--------+ + + + + | 11/30/ | Emergency | Emergency Medicine | Pawel Clay, | Methamphetamine | | 2019 | | | MD | intoxication (HCC) | | | | | | (Primary Dx); Panic | | | | | | attack | +--------+ + + + + | 11/19/ | Emergency | Emergency Medicine | Jim Hurd | Foreign body in skin | | 2019 | | | MD Deuce | (Primary Dx) | +--------+ + + + + | 11/18/ | Telephone | General Surgery | Harshad Shaikh MD | Referral | | 2019 | | | | | +--------+ + + + + | 11/15/ | Emergency | Emergency Medicine | Tomy Redmond, | Medication reaction, | 2019 | | | JESSENIA Barreto, | initial encounter | | | | | Osiel Montero MD | (Primary Dx); | | | | | | Urticaria; Pruritus | +--------+ + + + + | 11/15/ | Emergency | Emergency Medicine | Osiel Barreto, | Injury due to | 2019 | | | | non-hypodermic | | | | | | needle (Primary Dx); | | | | | | Metal foreign body | | | | | | in upper extremity, | | | | | | left, initial | | | | | | encounter; | | | | | | Immunization, | | | | | | tetanus-diphtheria | +--------+ + + + + | 10/17/ | Emergency | Emergency Medicine | Bhupinder Yadav, | Alcoholic | | 2019 | | | | intoxication without | | | | | | complication (HCC) | | | | | | (Primary Dx) | +--------+ + + + + | 10/07/ | Emergency | Emergency Medicine | Rupesh Butt | Josephonephritis | | 2019 | | | MD Gal | (Primary Dx) | +--------+ + + + + from Last 3 Months Immunizations + + + + | Name | Administration Dates | Next Due | + + + + | DTAP, 5 DOSE (PED) | 11/16/2019 (Deferred: Other - order | | | | changed) | | + + + + | DTP (PED) | 03/24/1987, 07/22/1986, 07/03/1985, | | | | 05/22/1984, 05/10/1983 | | + + + + | HEP B, 3 DOSE | 10/22/1997, 05/20/1997, 04/14/1997 | | | (ADULT) | | | + + + + | INFLUENZA PF 20 Y OR | 08/10/2018 | | | >,QUADRIVALENT | | | | RECOMBINANT | | | + + + + | INFLUENZA PF | 08/14/2013 | | | TRIVALENT(PED/ADOL/A | | | | DULPamela) PSKT | | | + + + + | MMR, 2 DOSE | 04/14/1997 | | | (PED/ADULT) | | | + + + + | PNEUMOCOCCAL | 08/10/2018 | | | POLYSACCHARIDE | | | | 23-VALENT (PPSV23) | | | + + + + | POLIOVIRUS,OPV | 04/02/1987, 07/03/1985, 06/03/1984, | | | (LIVE) | 06/03/1983 | | + + + + | TD PF (2 LF TETANUS) | 02/08/2005, 04/02/1996 | | | (ADOL/ADULT) | | | + + + + | TDAP, (ADOL/ADULT) | 11/16/2019, 08/21/2015, 12/24/2013 | | + + + + Family History + + +------+ + | Medical History | Relation | Name | Comments | + + +------+ + | Depression | Brother | | | + + +------+ + | Substance abuse | Brother | | | + + +------+ + | No known problems | Daughter | | | + + +------+ + | Cancer | Father | | | + + +------+ + | Depression | Father | | | + + +------+ + | Diabetes | Father | | | + + +------+ + | Heart disease | Father | | | + + +------+ + | High blood pressure | Father | | | + + +------+ + | High cholesterol | Father | | | + + +------+ + | Kidney disease | Father | | | + + +------+ + | Arthritis | Maternal | | | | | Grandfath | | | | | er | | | + + +------+ + | Depression | Maternal | | | | | Grandfath | | | | | er | | | + + +------+ + | Diabetes | Maternal | | | | | Grandfath | | | | | er | | | + + +------+ + | Arthritis | Maternal | | | | | Grandmoth | | | | | er | | | + + +------+ + | Depression | Maternal | | | | | Grandmoth | | | | | er | | | + + +------+ + | Diabetes | Maternal | | | | | Grandmoth | | | | | er | | | + + +------+ + | Depression | Mother | | | + + +------+ + | Diabetes | Mother | | | + + +------+ + | Cancer | Paternal | | | | | Grandfath | | | | | er | | | + + +------+ + | COPD | Paternal | | | | | Grandmoth | | | | | er | | | + + +------+ + | Asthma | Sister | | | + + +------+ + | Depression | Sister | | | + + +------+ + | Miscarriages / | Sister | | | | stillbirths | | | | + + +------+ + | Substance abuse | Sister | | | + + +------+ + | Asthma | Son | | | + + +------+ + | Learning disability | Son | | | + + +------+ + + +------+ + + | Relation | Name | Status | Comments | + +------+ + + | Brother | | Alive | | + +------+ + + | Daughter | | Alive | | + +------+ + + | Father | | | | + +------+ + + | Maternal Grandfather | | | | + +------+ + + | Maternal Grandmother | | Alive | | + +------+ + + | Mother | | Alive | | + +------+ + + | Paternal Grandfather | | | | + +------+ + + | Paternal Grandmother | | | | + +------+ + + | Sister | | Alive | | + +------+ + + | Son | | Alive | | + +------+ + + Social History + + + [...] + | Tobacco Cessation: Ready to Quit: No; Counseling Given: Yes | + + + [...] recent travel history available. | + + Last Filed Vital Signs + + + + + | Vital Sign | Reading | Time Taken | Comments | + + + + + | Blood Pressure | 110/98 | 12/31/2019 11:48 PM | | | | | PDT | | + + + + + | Pulse | 112 | 12/31/2019 11:48 PM | | | | | PDT | | + + + + + | Temperature | 36 C (96.8 F) | 12/31/2019 11:48 PM | | | | | PDT | | + + + + + | Respiratory Rate | 18 | 12/31/2019 11:48 PM | | | | | PDT | | + + + + + | Oxygen Saturation | 100% | 12/31/2019 11:48 PM | | | | | PDT | | + + + + + | Inhaled Oxygen | - | - | | | Concentration | | | | + + + + + | Weight | 49.9 kg (110 lb) | 12/31/2019 11:48 PM | | | | | PDT | | + + + + + | Height | 152.4 cm (5') | 12/31/2019 11:48 PM | | | | | PDT | | + + + + + | Body Mass Index | 21.48 | 12/31/2019 11:48 PM | | | | | PDT | | + + + + + Plan of Treatment + + + + + | Health Maintenance | Due Date | Last Done | Comments | + + + + + | Vaccine: Influenza | | 08/10/2018, 08/14/2013 | | | (Season Ended) | 0 | | | + + + + + | Cervical Cancer | | 10/31/2018, 04/22/2014, | | | Screening (Pap) | 2 | 08/14/2013 | | + + + + + | Vaccine: | | 11/16/2019, 08/21/2015, | | | Dtap/Tdap/Td (8 - | 0 | 12/24/2013, Additional history | | | Td) | | exists | | + + + + + | Vaccine: | Completed | 08/10/2018 | | | Pneumococcal 19-64 | | | | + + + + + Procedures + +--------+ + + + | Procedure Name | Priori | Date/Time | Associated Diagnosis | Comments | | | ty | | | | + +--------+ + + + | ED INFORMATION | Routin | 12/31/2019 | | | | EXCHANGE | e | 11:37 PM | | | | | | PDT | | | + +--------+ + + + +---+--------+ | | | | | Proced | | | ure | | | Note - | | | Sky, | | | Lab In | | | | | | [facility] | | | n - | | | 12/30/ | | | 2019 | | | 11:38 | | | PM PDT | | [...] | | | 0 | | | 23:36? | | | STROE, | | | | | | NATALY | | | | | | J?MRN: | | | | | | [id number] | | | [id number] | | | riteri | | | [...] | | 1 0 | | | [facility] | | | | | | Health [...] | | | Center | | | 13 0 | | | Total | | | 20 0 | | | Note: | | [...] | | out | | | of 20 | | | in the | | [...] | | | Apr | | | 28, | | | 2020 | | | Provid | | | ence | | | [facility] [place] [facility] [place] | | | [place] | | | Emerge | | | ncy | | | | | | muscle | | | | | | spasms | | | , poss | | | | | | electr | | | icuted | | | Apr | | | [...] | | | Pain | | | Arm | | | Pain | | | | | | Local | | | infect | | | ion of | | | the | | | skin | | | and | | | subcut | | | aneous | | | | | | tissue | | | , | | | unspec | | | if | | | Apr | | | 19, | | | 2020 | | | [facility] | | | [place] | | | idge | | | [place] | | | [place] | | | [place] | | | Emerge | | | ncy | | | -1. | | | Rash | | | and | | | other | | | nonspe | | | cific | | | skin | | | erupti | | | on | | | 1. | | | Unspec | | | ified | | | contac | | | t | | | dermat | | | itis, | | | unspec | | | ified | | | cause | | | 3. | | | Other | | | stimul | | | ant | | | abuse, | | | | | | uncomp | | | licate | | | d | | | 4. | | | Nicoti | | | ne | | | depend | | | ence, | | | cigare | | | ttes, | | | uncomp | | | licate | | | d | | | 5. | | | Other | | | long | | | term | | | (curre | | | nt) | | | drug | | | therap | | | y Apr | | | 8, | | | 2020 | | | [facility] | | | | | | Health [...] | | | 2020 | | | [facility] | | | | | | Health [...] | | | ter | | | Recent | | | [...] | | | otify/ | | | [id number] | | | [id number] | | | [id number] | | | [phone] | | | [id number] | | | [id number] | | | | | | PLEASE [...] [email or web address] | | | m | +---+--------+ + +--------+ +---+---+ | ED INFORMATION | Routin | 12/29/2019 | | | | EXCHANGE | e | 4:43 PM | | | | | | PDT | | | + +--------+ +---+---+ +---+--------+ | | | | | Proced | | | ure | | | Note - | | | Sky, | | | Lab In | | | | | | [facility] | | | n - | | | 12/28/ | | | 2020 | | | 4:44 | | | [...] | | | FICATI | | | ON?04/ | | | / | | | 0 | | | 16:42? | | | STROE, | | | | | | NATALY | | | | | | J?MRN: | | | | | | [id number] | | | [id number] | | | riteri | | | [...] | | | d: | | | 12/11/19 | | | 10:08 | | | [...] | | 1 0 | | | [facility] | | | | | | Health [...] | | | 2020 | | | [facility] | | | | | | Health [...] | | | 2020 | | | [facility] | | | | | | Health [...] [email or web address] | | | m | +---+--------+ + +--------+ +---+ + | XR HUMERUS LEFT 2 + | TATIANNA | 12/08/2019 | | Results for this | | VW | | 9:44 PM | | procedure are in the | | | | PDT | | results section. | + +--------+ +---+ + | HC DRUG TEST PRSMV | STAT | 12/08/2019 | | Results for this | | CHEM ANLYZR, PER DOS | | 9:41 PM | | procedure are in the | | | | PDT | | results section. | + +--------+ +---+ + | URINALYSIS WITH | STAT | 12/08/2019 | | Results for this | | MICROSCOPIC WITH | | 9:41 PM | | procedure are in the | | CULTURE IF INDICATED | | PDT | | results section. | + +--------+ +---+ + | , SERUM, | STAT | 12/08/2019 | | Results for this | | QUAL | | 9:28 PM | | procedure are in the | | | | PDT | | results section. | + +--------+ +---+ + | ALCOHOL | STAT | 12/08/2019 | | Results for this | | | | 9:28 PM | | procedure are in the | | | | PDT | | results section. | + +--------+ +---+ + | ACETAMINOPHEN LEVEL | STAT | 12/08/2019 | | Results for this | | | | 9:28 PM | | procedure are in the | | | | PDT | | results section. | + +--------+ +---+ + | SALICYLATE LEVEL | Routin | 12/08/2019 | | Results for this | | | e | 9:28 PM | | procedure are in the | | | | PDT | | results section. | + +--------+ +---+ + | COMPREHENSIVE | STAT | 12/08/2019 | | Results for this | | METABOLIC PANEL | | 9:28 PM | | procedure are in the | | | | PDT | | results section. | + +--------+ +---+ + | CBC WITH | STAT | 12/08/2019 | | Results for this | | DIFFERENTIAL | | 9:28 PM | | procedure are in the | | | | PDT | | results section. | + +--------+ +---+ + | EXTRA BLUE TOP TUBE | Routin | 12/06/2019 | | Results for this | | | e | 6:51 AM | | procedure are in the | | | | PDT | | results section. | + +--------+ +---+ + | EXTRA GREEN TOP TUBE | Routin | 12/06/2019 | | Results for this | | | e | 6:51 AM | | procedure are in the | | | | PDT | | results section. | + +--------+ +---+ + | EXTRA LAVENDER TOP | Routin | 12/06/2019 | | Results for this | | TUBE | e | 6:51 AM | | procedure are in the | | | | PDT | | results section. | + +--------+ +---+ + | , SERUM, | STAT | 12/06/2019 | | Results for this | | QUAL | | 6:51 AM | | procedure are in the | | | | PDT | | results section. | + +--------+ +---+ + | MAGNESIUM | STAT | 12/06/2019 | | Results for this | | | | 6:51 AM | | procedure are in the | | | | PDT | | results section. | + +--------+ +---+ + | CK TOTAL | STAT | 12/06/2019 | | Results for this | | | | 6:51 AM | | procedure are in the | | | | PDT | | results section. | + +--------+ +---+ + | COMPREHENSIVE | STAT | 12/06/2019 | | Results for this | | METABOLIC PANEL | | 6:51 AM | | procedure are in the | | | | PDT | | results section. | + +--------+ +---+ + | CBC WITH | STAT | 12/06/2019 | | Results for this | | DIFFERENTIAL | | 6:51 AM | | procedure are in the | | | | PDT | | results section. | + +--------+ +---+ + | DRUGS OF ABUSE, | STAT | 12/06/2019 | | Results for this | | SCREEN, URINE | | 6:15 AM | | procedure are in the | | | | PDT | | results section. | + +--------+ +---+ + | URINALYSIS WITH | STAT | 12/06/2019 | | Results for this | | MICROSCOPIC WITH | | 6:15 AM | | procedure are in the | | CULTURE IF INDICATED | | PDT | | results section. | + +--------+ +---+ + | SALICYLATE LEVEL | STAT | 12/01/2019 | | Results for this | | | | 5:25 AM | | procedure are in the | | | | PDT | | results section. | + +--------+ +---+ + | ACETAMINOPHEN LEVEL | STAT | 12/01/2019 | | Results for this | | | | 5:25 AM | | procedure are in the | | | | PDT | | results section. | + +--------+ +---+ + | ALCOHOL | STAT | 12/01/2019 | | Results for this | | | | 5:25 AM | | procedure are in the | | | | PDT | | results section. | + +--------+ +---+ + | COMPREHENSIVE | STAT | 12/01/2019 | | Results for this | | METABOLIC PANEL | | 5:25 AM | | procedure are in the | | | | PDT | | results section. | + +--------+ +---+ + | CBC WITH | STAT | 12/01/2019 | | Results for this | | DIFFERENTIAL | | 5:25 AM | | procedure are in the | | | | PDT | | results section. | + +--------+ +---+ + | XR CHEST AP PORTABLE | STAT | 12/01/2019 | | Results for this | | | | 4:59 AM | | procedure are in the | | | | PDT | | results section. | + +--------+ +---+ + | DRUGS OF ABUSE, | STAT | 12/01/2019 | | Results for this | | SCREEN, URINE | | 4:59 AM | | procedure are in the | | | | PDT | | results section. | + +--------+ +---+ + | ECG 12 LEAD | Routin | 12/01/2019 | | Results for this | | | e | 4:14 AM | | procedure are in the | | | | PDT | | results section. 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 | | | 2019 | | | [employer] | | | tive | | | Medica | | | l | | | [employer] | | | logies | | | , [employer] | | | - | | | [email or web address] | | | llecti | | | vemedi | | | [email or web address] | | | m | +---+--------+ + +--------+ +---+---+ | ED INFORMATION | Routin | 11/20/2019 | | | | EXCHANGE | e | 2:22 PM | | | | | | PDT | | | + +--------+ +---+---+ +---+--------+ | | | | | Proced | | | ure | | | Note - | | | Sky, | | | Lab In | | | | | | [facility] | | | n - | | | 11/19/ | | | 2019 | | | 2:23 | | | PM PDT | | [...] | | | ON?/ | | | 18/202 | | | 0 | | | 14:21? | | | STROE, | | | | | | NATALY | | | | | | J?MRN: | | | | | | [id number] | | | [id number] | | | riteri | | | [...] | | | Center | | | 8 0 | | | Total | | | 11 0 | | | Note: | | [...] | | out | | | of 12 | | | in the | | [...] | | | arm | | | Mar | | | [...] | | | of | | | unsp | | | drug/m | | | eds/bi | | | ol | | | subst, | | | init | | | | | | Prurit [...] | | | arm, | | | init | | | encntr | | | | | | Contac [...] | | | not | | | spcf | | | as | | | acute | | | or | | | chroni | | | c Dec | | | 19, | | [...] | | | use, | | | unsp | | | with | | | [...] | | | skin | | | Oct 4, | | | 2019 | | | Provid | | | ence | | | St. | | | [place] [facility] | | | [place] | | | [place] | | | Emerge | | | ncy | | | | | | Spasms | | | | | | Other | | | muscle | | | spasm | | | | | | Other | | | stimul | | | ant | | | abuse, | | | | | | uncomp | | | licate | | | d | | | Recent | | | [...] LEGACY | | | | | | EMANUE | | | L | | | MEDICA | | | [...] | | | otify/ | | | [id number] | | | [id number] | | | [phone] | | | [phone] | | | [id number] | | | [id number] | | | | | | PLEASE [...] | | | ed.? | | | 2019 | | | Collec | | | tive | | | Medica | | | l | | | Techno | | | logies | | | , Inc. | | | - | | | [email or web address] | | | llecti | | | vemedi | | | [email or web address] | | | m | +---+--------+ + +--------+ +---+---+ | ED INFORMATION | Routin | 11/16/2019 | | | | EXCHANGE | e | 3:44 PM | | | | | | PDT | | | + +--------+ +---+---+ +---+--------+ | | | | | Proced | | | ure | | | Note - | | | Sky, | | | Lab In | | | | | | Hlseve | | | n - | | | 11/15/ | | 2019 | | | 3:45 | | | PM PDT | | [...] | | | 0 | | | 15:43? | | | STROE, | | | | | | NATALY | | | | | | J?MRN: | | | | | | [id number] | | | [id number] | | | riteri | | | a Met | | | 2 in | | | 2 10 | | | in 12 | | | 3 in | | | 60Secu | | [...] | | | Center | | | 7 0 | | | Total | | | 10 0 | | | Note: | | [...] | | out | | | of 11 | | | in the | | [...] | | | ncy | | | Mar | | | [...] | | | arm, | | | init | | | encntr | | | | | | Contac [...] | | | not | | | spcf | | | as | | | acute | | | or | | | chroni | | | c Dec | | | 19, | | [...] | | | use, | | | unsp | | | with | | | [...] | | | skin | | | Oct 4, | | | 2019 | | | Provid | | | ence | | | St. | | | [place] [facility] | | | [place] | | | [place] | | | Emerge | | | ncy | | | | | | Spasms | | | | | | Other | | | muscle | | | spasm | | | | | | Other | | | stimul | | | ant | | | abuse, | | | | | | uncomp | | | licate | | | d May | | | 7, | | | 2019 | | | Provid | | | ence | | | St. | | | [place] [facility] | | | [place] | | | [place] | | | Emerge | | | ncy | | | | | | migrai | | | ne | | | Headac | | | he | | | (Adult | | | - New | | | Onset | | | Or | | | New | | | Sympto | | | ms) | | | | | | Headac | | | he | | | Recent | | | [...] | | | Dates | | | LEGACY | | | | | | SILVER | | | TON | | | MEDICA | | | [...] the | | | | | | Kadlec [...] | | | https: | | | //secu | | | re.col | | | lectiv | | | emedic | | | al.com | | | /notif | | | [id number] | | | [id number] | | | [id number] | | | [id number] | | | [phone] | | | [phone] | | | fa | | | PLEASE | | | [...] [email or web address] | | | m | +---+--------+ + +--------+ +---+ + | FL C ARM | [facility]IAN[facility] | 11/16/2019 | | Results for this | | | | 2:17 PM | | procedure are in the | | | | PDT | | results section. | + +--------+ +---+ + | XR ELBOW LEFT 2 VW | [facility] | 11/16/2019 | | Results for this | | | | 1:37 PM | | procedure are in the | | | | PDT | | results section. | + +--------+ +---+ + | FOREIGN BODY REMOVAL | Routin | 11/16/2019 | | Results for this | | | e | 1:14 PM | | procedure are in the | | | | PDT | | results section. | + +--------+ +---+ + | ED INFORMATION | Routin | 11/16/2019 | | | | EXCHANGE | e | 12:36 PM | | | | | | PDT | | | + +--------+ +---+ + +---+--------+ | | | | | Proced | | | ure | | | Note - | | | Sky, | | | Lab In | | | | | | Hlseve | | | n - | | | | | | 2019 | | | 12:36 | | | PM PDT | | [...] | | | ON?03/ | | | 14/202 | | | 0 | | | 12:35? | | | STROE, | | | | | | NATALY | | | | | | J?MRN: | | | | | | [id number] | | | [id number] | | | riteri | | | a Met | | | 2 in | | | 2 3 | | | in | | | [...] | | | Center | | | 1 0 | | | Provid | | | ence | | | St. | | | [place] | | | Medica | | | l | | | Center | | | 7 0 | | | Total | | | 9 0 | | | Note: | | [...] | | | Summar | | | yDate | | | Facili | | | [...] | | | ncy | | | Mar | | | [...] | | | not | | | spcf | | | as | | | acute | | | or | | | chroni | | | c Dec | | | 19, | | [...] | | | use, | | | unsp | | | with | | | [...] | | | skin | | | Oct 4, | | | 2019 | | | Provid | | | ence | | | St. | | | [place] [facility] | | | [place] | | | [place] | | | Emerge | | | ncy | | | | | | Spasms | | | | | | Other | | | muscle | | | spasm | | | | | | Other | | | stimul | | | ant | | | abuse, | | | | | | uncomp | | | licate | | | d May | | | 7, | | | 2019 | | | Provid | | | ence | | | St. | | | [place] [facility] | | | [place] | | | [place] | | | Emerge | | | ncy | | | | | | migrai | | | ne | | | Headac | | | he | | | (Adult | | | - New | | | Onset | | | Or | | | New | | | Sympto | | | ms) | | | | | | Headac | | | he | | | Apr | | | 23, | | | 2019 | | | [facility] | | | [place] | | | Urgent | | | Care | | | [place] | | | [place] | | | Urgent | | | Care | | | | | | Cough | | | | | | Migrai | | | ne, | | | unsp, | | | not | | | intrac | | | table, | | | | | | withou | | | t | | | status | | | | | | migrai | | | nosus | | | | | | Acute | | | upper | | | respir | | | atory | | | infect | | | ion, | | | unspec | | | ified | | | Oth | | | viral | | | | | | agents | | | as | | | the | | | cause | | | of | | | diseas | | | es | | | classd | | | | | | elswhr | | | | | | Recent [...] | | | Dates | | | LEGACY | | | GOOD | | | SAMARI | | | EWING | | | MEDICA | | | [...] the | | | | | | Kadlec [...] | | | https: | | | //secu | | | re.col | | | lectiv | | | emedic | | | al.com | | | /notif | | | [id number] | | | [phone] | | | [phone] | | | [phone] | | | 2-[phone] | | | [phone] | | | bb | | | PLEASE | | | [...] [email or web address] | | | m | +---+--------+ + +--------+ +---+ + | XR ELBOW LEFT 2 VW | Routin | 11/15/2019 | | Results for this | | | e | 12:05 AM | | procedure are in the | | | | PDT | | results section. | + +--------+ +---+ + | US EXTREMITY | Routin | 11/15/2019 | | Results for this | | NONVASCULAR LIMITED | e | 12:00 AM | | procedure are in the | | LEFT | | PDT | | results section. | + +--------+ +---+ + | COMPREHENSIVE | STAT | 10/07/2019 | | Results for this | | METABOLIC PANEL | | 6:09 PM | | procedure are in the | | | | PST | | results section. | + +--------+ +---+ + | CBC WITH | STAT | 10/07/2019 | | Results for this | | DIFFERENTIAL | | 6:09 PM | | procedure are in the | | | | PST | | results section. | + +--------+ +---+ + | HCG, URINE, QUAL | STAT | 10/07/2019 | | Results for this | | | | 5:43 PM | | procedure are in the | | | | PST | | results section. | + +--------+ +---+ + | URINALYSIS WITH | Routin | 10/07/2019 | | Results for this | | MICROSCOPIC WITH | e | 5:43 PM | | procedure are in the | | CULTURE IF INDICATED | | PST | | results section. | + +--------+ +---+ + | CULTURE, URINE | Routin | 10/07/2019 | | Results for this | | | e | 5:43 PM | | procedure are in the | | | | PST | | results section. | + +--------+ +---+ + from Last 3 Months Results XR Humerus Left 2 + Vw (12/08/2019 9:44 PM PDT) + + | Specimen | + + | | + + + + + | Impressions | Performed At | + + + | Negative humerus. Signed by: Miguel Bartlett James Sign | [facility] | | Date/Time: 12/08/2019 9:55 PM | | + + + + + + | Narrative | Performed At | + + + | LEFT HUMERUS CLINICAL INFORMATION: Spasms. COMPARISON: | [facility] | | None FINDINGS: No fracture or dislocation. No significant | | | arthropathy or soft tissue abnormalities. Normal bone | | | mineralization. | | + + + + + | Procedure Note | + + | Pardeep Swanson Results In - 12/08/2019 9:58 PM PDT | | LEFT HUMERUS | | | | CLINICAL INFORMATION: | | Spasms. | | | | COMPARISON: | | None | | | | FINDINGS: | | No fracture or dislocation. No significant arthropathy or soft tissue | | abnormalities. Normal bone mineralization. | | | | IMPRESSION: | | Negative humerus. | | | | | | | | Signed by: Miguel Bartlett James | | Sign Date/Time: 12/08/2019 9:55 PM | + + + +---------+ + + | Performing | Address | City/State/Zipcode | Phone Number | | Organization | | | | + +---------+ + + | [facility] | | | | + +---------+ + + Drugs Of Abuse Screen, Urine (H) (12/08/2019 9:41 PM PDT) + + + + + + | Component | Value | Ref Range | Performed | Pathologist | | | | | At | Signature | + + + + + + | Amp/Methamp | POSITIVE (A)Comment: | NEG | [facility] | | | hetamine, | Positive cutoff for AMP | | LABORATORY | | | Screen, | = 1000 ng/mL | | | | | Urine | | | | | + + + + + + | Barbiturate | NEGATIVEComment: | NEG | [facility] | | | s Screen, | Positive cutoff for HI | | LABORATORY | | | Urine | = 200 ng/mL | | | | + + + + + + | Benzodiazep | NEGATIVEComment: | NEG | [facility] | | | tameka | Positive cutoff for | | LABORATORY | | | Screen, | BENZO = 200 ng/mL | | | | | Urine | | | | | + + + + + + | Cocaine | NEGATIVEComment: | NEG | [facility] | | | Metabolites | Positive cutoff for OCTAVIA | | LABORATORY | | | , Ur | = 300 ng/mL | | | | + + + + + + | Methadone | NEGATIVEComment: | NEG | [facility] | | | Screen, | Positive cutoff for MTD | | LABORATORY | | | Urine | = 300 ng/mL | | | | + + + + + + | Opiates | NEGATIVEComment: | NEG | [facility] | | | Screen, | Positive cutoff for OPI | | LABORATORY | | | Urine | = 300 ng/mL | | | | + + + + + + | Phencyclidi | NEGATIVEComment: | NEG | [facility] | | | ne Screen, | Positive cutoff for PCP | | LABORATORY | | | Urine | = 25 ng/mL | | | | + + + + + + | Tetrahydroc | NEGATIVEComment: | NEG | [facility] | | | annabinol(T | Positive cutoff for | | LABORATORY | | | HC) | THC = 50 ng/mLThe above | | | | | | are unconfirmed | | | | | | screening results. | | | | | | These results are to | | | | | | be used onlyfor medical | | | | | | (i.e.,treatment) | | | | | | purposes. Unconfirmed | | | | | | screening results must | | | | | | notbe used for | | | | | | non-medical purposes | | | | | | (e.g., employment | | | | | | testing, legal | | | | | | testing).Testing | | | | | | performed at [facility] | | | | | | [address];[place], [place] | | | | | | [address] | | | | + + + + + + + + | Specimen | + + | Urine - Urine | | specimen obtained by | | clean catch | | procedure (specimen) | + + + + + + + | Performing | Address | City/State/Zipcode | Phone Number | | Organization | | | | + + + + + | [facility] | [address] | [place] [address] | [phone] | + + + + + Urinalysis with Microscopic with Culture if Indicated (12/08/2019 9:41 PM PDT)Only the mos t recent of 3 results within the time period is included. + + + + + + | Component | Value | Ref Range | Performed | Pathologist | | | | | At | Signature | + + + + + + | Color, UA | YELLOW | | [facility] | | | | | | LABORATORY | | + + + + + + | Clarity, UA | HAZY | | [facility] | | | | | | LABORATORY | | + + + + + + | Specific | 1.029 | 1.002 - 1.030 | [facility] | | | [place], | | | LABORATORY | | | Urine | | | | | + + + + + + | Leukocyte | NEGATIVE | NEG | [facility] | | | esterase, | | | LABORATORY | | | UA | | | | | + + + + + + | Nitrite, UA | NEGATIVE | NEG | [facility] | | | | | | LABORATORY | | + + + + + + | Urobilinoge | NORMAL | <1.6 mg/dL | [facility] | | | n, Ur | | | LABORATORY | | + + + + + + | Protein, | NEGATIVE | NEG mg/dL | [facility] | | | Urine | | | LABORATORY | | | (mg/dL) | | | | | + + + + + + | pH, Urine | 5.0 | 5.0 - 8.0 | [facility] | | | | | | LABORATORY | | + + + + + + | Blood, UA | SMALL (A) | NEG | [facility] | | | | | | LABORATORY | | + + + + + + | Ketones, UA | TRACE (A) | NEG mg/dL | [facility] | | | | | | LABORATORY | | + + + + + + | Bilirubin, | NEGATIVE | NEG | [facility] | | | UA | | | LABORATORY | | + + + + + + | Glucose, Ur | NEGATIVE | NEG mg/dL | [facility] | | | | | | LABORATORY | | + + + + + + | WBC UA | 0-2 | 0 - 5 /hpf | [facility] | | | | | | LABORATORY | | + + + + + + | Red Blood | 0-2 | 0 - 5 /hpf | [facility] | | | Cells, | | | LABORATORY | | | Urine | | | | | + + + + + + | Squamous | >100 | /lpf | [facility] | | | Epithelial | | | LABORATORY | | | Cells, | | | | | | Urine | | | | | + + + + + + | Bacteria, | 1+ (A) | NONE | [facility] | | | Urine | | | LABORATORY | | + + + + + + | Mucus, | 1+Comment: Testing | | [facility] | | | Urine | performed at [facility];[address] | | LABORATORY | | | | [address];[place] | | | | | | [address] | | | | + + + + + + + + | Specimen | + + | Urine - Urine | | specimen obtained by | | clean catch | | procedure (specimen) | + + + + + + + | Performing | Address | City/State/Zipcode | Phone Number | | Organization | | | | + + + + + | [facility] | [address] | [place] [address] | [phone] | + + + + + CBC with Differential (12/08/2019 9:28 PM PDT)Only the most recent of 4 results within the time period is included. + + + + + + | Component | Value | Ref Range | Performed | Pathologist | | | | | At | Signature | + + + + + + | WBC | 12.03 (H) | 3.80 - 11.00 | [facility] | | | | | K/uL | LABORATORY | | + + + + + + | RBC | 4.05 | 3.70 - 5.10 | [facility] | | | | | M/uL | LABORATORY | | + + + + + + | Hemoglobin | 13.2 | 11.3 - 15.5 | [facility] | | | | | g/dL | LABORATORY | | + + + + + + | Hematocrit | 38.8 | 34.0 - 46.0 % | [facility] | | | | | | LABORATORY | | + + + + + + | MCV | 95.8 | 80.0 - 100.0 fl | [facility] | | | | | | LABORATORY | | + + + + + + | MCH | 32.6 | 27.0 - 34.0 pg | [facility] | | | | | | LABORATORY | | + + + + + + | MCHC | 34.0 | 32.0 - 35.5 | [facility] | | | | | g/dL | LABORATORY | | + + + + + + | RDW-SD | 44.4 | 37 - 53 fl | [facility] | | | | | | LABORATORY | | + + + + + + | Platelet | 376 | 150 - 400 K/uL | [facility] | | | Count | | | LABORATORY | | + + + + + + | MPV | 9.4Comment: NO NORMAL | fl | [facility] | | | | RANGE ESTABLISHED | | LABORATORY | | + + + + + + | Diff Type | AUTOMATED | | [facility] | | | | | | LABORATORY | | + + + + + + | % nRBC | 0.0 | 0 /100WBC | [facility] | | | | | | LABORATORY | | + + + + + + | % | 73.20 | % | [facility] | | | Neutrophils | | | LABORATORY | | + + + + + + | IMMATURE | 0.30 | % | [facility] | | | GRANULOCYTE | | | LABORATORY | | + + + + + + | % | 19.30 | % | [facility] | | | Lymphocytes | | | LABORATORY | | + + + + + + | Monocyte % | 5.00 | % | [facility] | | | | | | LABORATORY | | + + + + + + | Eosinophils | 1.70 | % | [facility] | | | % | | | LABORATORY | | + + + + + + | Basophils % | 0.50 | % | [facility] | | | | | | LABORATORY | | + + + + + + | Neutrophils | 8.80 (H) | 1.90 - 7.40 | [facility] | | | , Absolute | | K/uL | LABORATORY | | + + + + + + | IMMATURE | 0.04Comment: NOTE NEW | 0.00 - 0.07 | [facility] | | | GRANS AB | REFERENCE RANGE | K/uL | LABORATORY | | + + + + + + | Absolute | 2.32 | 1.00 - 3.90 | [facility] | | | Lymphocytes | | K/uL | LABORATORY | | + + + + + + | Absolute | 0.60 | 0.00 - 0.80 | [facility] | | | Monocytes | | K/uL | LABORATORY | | + + + + + + | Eosinophils | 0.21 | 0.00 - 0.50 | [facility] | | | , Absolute | | K/uL | LABORATORY | | + + + + + + | Basophils, | 0.06Comment: Testing | 0.00 - 0.10 | [facility] | | | Absolute | performed at [facility];[address] | K/uL | LABORATORY | | | | [address];[place], [place] | | | | | | [address] | | | | + + + + + + + + | Specimen | + + | Blood | + + + + + + + | Performing | Address | City/State/Zipcode | Phone Number | | Organization | | | | + + + + + | [facility] | [address] | [place] [address] | [phone] | + + + + + , Serum, Qual (12/08/2019 9:28 PM PDT)Only the most recent of 2 results within time period is included. + + + + + + | Component | Value | Ref Range | Performed | Pathologist | | | | | At | Signature | + + + + + + | Preg, Serum | NEGATIVEComment: Testing | NEG | JENN[facility] | | | | performed at [facility];[address] | | LABORATORY | | | | [address];[place] | | | | | | [address] | | | | + + + + + + + + | Specimen | + + | Blood | + + + + + + + | Performing | Address | City/State/Zipcode | Phone Number | | Organization | | | | + + + + + | [facility] | [address] | [place] [address] | [phone] | + + + + + Ethanol (12/08/2019 9:28 PM PDT)Only the most recent of 2 results within the time period i s included. + + + + + + | Component | Value | Ref Range | Performed | Pathologist | | | | | At | Signature | + + + + + + | ALCOHOL, | 86 (H)Comment: Testing | <10 mg/dL | [facility] | | | SERUM/PLASM | performed at [facility];[address] | | LABORATORY | | | A | [address];[place] | | | | | | [address] | | | | + + + + + + + + | Specimen | + + | Blood | + + + + + + + | Performing | Address | City/State/Zipcode | Phone Number | | Organization | | | | + + + + + | [facility] | [address] | [place] [address] | [phone] | + + + + + Acetaminophen Level (12/08/2019 9:28 PM PDT)Only the most recent of 2 results within the period is included. + + + + + + | Component | Value | Ref Range | Performed | Pathologist | | | | | At | Signature | + + + + + + | Acetaminoph | <2.0 (L)Comment: Testing | 10.0 - 30.0 | [facility] | | | en, S | performed at [facility];[address] | ug/mL | LABORATORY | | | | [address];[place], [place] | | | | | | [address] | | | | + + + + + + + + | Specimen | + + | Blood | + + + + + + + | Performing | Address | City/State/Zipcode | Phone Number | | Organization | | | | + + + + + | [facility] | [address] | [place] [address] | [phone] | + + + + + Salicylate Level (12/08/2019 9:28 PM PDT)Only the most recent of 2 results within the time period is included. + + + + + + | Component | Value | Ref Range | Performed | Pathologist | | | | | At | Signature | + + + + + + | Salicylate, | <3.0Comment: Testing | 2.8 - 20.0 | [facility] | | | mg/dL | performed at [facility];[address] | mg/dL | LABORATORY | | | | [address];[place], [place] | | | | | | [address] | | | | + + + + + + + + | Specimen | + + | Blood | + + + + + + + | Performing | Address | City/State/Zipcode | Phone Number | | Organization | | | | + + + + + | [facility] | [address] | [place] [address] | [phone] | + + + + + Comprehensive Metabolic Panel (12/08/2019 9:28 PM PDT)Only the most recent of 4 results wi thin the time period is included. + + + + + + | Component | Value | Ref Range | Performed | Pathologist | | | | | At | Signature | + + + + + + | Na | 141 | 135 - 145 | [facility] | | | | | mmol/L | LABORATORY | | + + + + + + | K | 3.1 (L) | 3.5 - 4.9 | [facility] | | | | | mmol/L | LABORATORY | | + + + + + + | Cl | 109 | 99 - 109 mmol/L | [facility] | | | | | | LABORATORY | | + + + + + + | CO2 | 19 (L) | 23 - 32 mmol/L | [facility] | | | | | | LABORATORY | | + + + + + + | Anion Gap | 16 | 5 - 20 mmol/L | [facility] | | | | | | LABORATORY | | + + + + + + | Glucose | 134 (H) | 65 - 99 mg/dL | [facility] | | | | | | LABORATORY | | + + + + + + | BUN | 19 | 8 - 25 mg/dL | [facility] | | | | | | LABORATORY | | + + + + + + | Creatinine | 0.59 | 0.50 - 1.00 | [facility] | | | | | mg/dL | LABORATORY | | + + + + + + | BUN/Creatin | 32 | | [facility] | | | ine Ratio | | | LABORATORY | | + + + + + + | Calcium | 9.4 | 8.5 - 10.5 | [facility] | | | | | mg/dL | LABORATORY | | + + + + + + | Protein, | 6.6 | 6.3 - 8.2 g/dL | [facility] | | | Total | | | LABORATORY | | + + + + + + | Albumin | 4.3 | 3.6 - 5.0 g/dL | [facility] | | | | | | LABORATORY | | + + + + + + | Globulin | 2.3 | 1.3 - 4.9 g/dL | [facility] | | | | | | LABORATORY | | + + + + + + | A/G Ratio | 1.9 | 1.0 - 2.4 | [facility] | | | | | | LABORATORY | | + + + + + + | BILIRUBIN, | 0.2 | 0.1 - 1.5 mg/dL | [facility] | | | TOTAL | | | LABORATORY | | + + + + + + | ALK PHOS | 73 | 35 - 115 U/L | [facility] | | | | | | LABORATORY | | + + + + + + | AST | 22 | 10 - 45 U/L | [facility] | | | | | | LABORATORY | | + + + + + + | ALT | 23 | 10 - 65 U/L | [facility] | | | | | | LABORATORY | | + + + + + + | Estimated | >60Comment: GFR <60: | >60 | [facility] | | | GFR | CHRONIC KIDNEY DISEASE, | mL/min/1.73m2 | LABORATORY | | | | IF FOUND OVER A 3 MONTH | | | | | | PERIOD.GFR <15: KIDNEY | | | | | | FAILURE.FOR | | | | | | AMERICANS, MULTIPLY THE | | | | | | CALCULATED GFR BY | | | | | | 1.210.This eGFR is | | | | | | calculated using the | | | | | | MDRD IDMS traceable | | | | | | equation.Testing | | | | | | performed at [facility] | | | | | | [address] [facility];[place], [place] | | | | | | [address] | | | | + + + + + + + + | Specimen | + + | Blood | + + + + + + + | Performing | Address | City/State/Zipcode | Phone Number | | Organization | | | | + + + + + | [facility] | [address] | [place] [address] | [phone] | + + + + + Extra Lavender Top Tube (12/06/2019 6:51 AM PDT) + +-------+ + + + | Component | Value | Ref Range | Performed | Pathologist | | | | | At | Signature | + +-------+ + + + | Extra | Done | | [facility] | | | [facility] | | | [facility] | | | Top Tube | | | MEDICAL | | | [...] | + + + + + | [facility] | [address] | [place] | [phone] | | [facility] | | [address] | | | - LABORATORY | | | | + + + + + Extra Green Top Tube (12/06/2019 6:51 AM PDT) + +-------+ + + + | Component | Value | Ref Range | Performed | Pathologist | | | | | At | Signature | + +-------+ + + + | Extra Green | Done | | [facility] | | | [facility] | | | [facility] | | [...] + | [facility] | [address] | [place] | [phone] | | [facility] | | [address] | | | - LABORATORY | | | | + + + + + Extra Blue Top Tube (12/06/2019 6:51 AM PDT) + +-------+ + + + | Component | Value | Ref Range | Performed | Pathologist | | | | | At | Signature | + +-------+ + + + | Extra Blue | Done | | [facility] | | | [facility] | | | [facility] | | [...] + | [facility] | [address] | [place] | [phone] | | [facility] | | [address] | | | - LABORATORY | | | | + + + + + Magnesium (12/06/2019 6:51 AM PDT) + +-------+ + + + | Component | Value | Ref Range | Performed | Pathologist | | | | | At | Signature | + +-------+ + + + | Magnesium | 2.0 | 1.6 - 2.6 mg/dL | [facility] | | | | | | [facility] | | | | [...] [address] | [place] | [phone] | | [facility] | | [address] | | | - LABORATORY | | | | + + + + + CK Total (12/06/2019 6:51 AM PDT) + +---------+ + + + | Component | Value | Ref Range | Performed | Pathologist | | | | | At | Signature | + +---------+ + + + | CK TOTAL | 415 (H) | 34 - 145 U/L | [place] | | | | | | [facility] [...] [address] | [place] | [phone] | | [facility] | | [address] | | | - LABORATORY | | | | + + + + + Drugs of Abuse, Screen, Urine (12/06/2019 6:15 AM PDT)Only the most recent of 2 results wi thin the time period is included. + + + + + + | [...] | | s Screen, | | | [facility] | | | Urine | | | MEDICAL | | | | | | CENTER - | | | | | | LABORATORY | | + + + + + + | Cocaine | Negative | Negative | [facility] | | | Screen, | | | [facility] | | | Urine | | | MEDICAL | | | | | | CENTER - | | | | | | LABORATORY | | + + + + + + | Methadone | Negative | Negative | [facility] | | | Screen, | | | [facility] | | | Urine | | | [...] | Specimen | + + | Urine | + + + + + + + | Performing | Address | City/State/Zipcode | Phone Number | | Organization | | | | + + + + + | [facility] | [address] | [place] | [phone] | | [facility] | | [address] | | | - LABORATORY | | [...] | | | + +---------+ + + ECG 12 lead (12/01/2019 4:14 [...] | | | | MEI REDMOND MD ([id number]) | | | | | | on [...] | | | + +---------+ + + FL C-Arm (11/16/2019 2:17 PM PDT) + + | Specimen | + + | | + + + + + | Impressions | Performed At | + + + | Fluoroscopic service for left elbow foreign body removal. | [facility] | | Dictated by: Phyllis Rolon Michelle Signed by: Miguel Gonzalez Jeffrey | | | Sign Date/Time: 11/16/2019 3:13 PM The radiologist has reviewed | | | the images and edited/approved the report. For interventional | | | procedures, the signing radiologist was present for the alvarez portions | | | of the exam. | | + + + + + + | Narrative | Performed At | + + + | FLUOROSCOPY C ARM CLINICAL INFORMATION: Foreign body left | [facility] | | elbow. FINDINGS: Fluoro Time: .32 minute(s). Number of | | | images: 3 DAP: 1.9675 mGycm^2 Left elbow foreign body | | | removal, performed by Dr. Barreto. | | + + + + + | Procedure Note | + + | Pardeep Swanson Results In 11/16/2019 3:17 PM PDT | | FLUOROSCOPY C ARM | | | | CLINICAL INFORMATION: | | Foreign body left elbow. | | | | FINDINGS: | | Fluoro Time: .32 minute(s). Number of images: 3 DAP: 1.9675 | | mGycm^2 | | | | Left elbow foreign body removal, performed by Dr. Barreto. | | | | IMPRESSION: | | Fluoroscopic service for left elbow foreign body removal. | | | | Dictated by: Phyllis Rolon Michelle | | | | Signed by: Miguel Gonzalez Jeffrey | | Sign Date/Time: 11/16/2019 3:13 PM | | | | The radiologist has reviewed the images and edited/approved | | the report. For interventional procedures, the signing | | radiologist was present for the alvarez portions of the exam. | + + + +---------+ + + | Performing | Address | City/State/Zipcode | Phone Number | | Organization | | | | + +---------+ + + | [facility] | | | | + +---------+ + + XR Elbow Left 2 Vw (11/16/2019 1:37 PM PDT)Only the most recent of 2 results within the ti me period is included. + + | Specimen | + + | | + + + + + | Impressions | Performed At | + + + | Linear metallic foreign body seen projecting at the soft tissues in | [facility] | | the distal anterior arm, measuring 6 mm in length. Signed | | | by: Miguel Antunez, [place] Sign Date/Time: 11/16/2019 1:39 PM | | + + + + + + | Narrative | Performed At | + + + | LEFT ELBOW TWO VIEWS CLINICAL INFORMATION: Left arm injury, | [facility] | | Foreign body. COMPARISON: None FINDINGS: Linear metallic | | | foreign body seen projecting at the soft tissues in the distal | | | anterior arm, measuring 6 mm in length. | | + + + + + | Procedure Note | + + | Sky, Pardeep Results In - 11/16/2019 1:42 PM PDT | | LEFT ELBOW TWO VIEWS | | | | CLINICAL INFORMATION: | | Left arm injury, Foreign body. | | | | COMPARISON: | | None | | | | FINDINGS: | | Linear metallic foreign body seen projecting at the soft tissues in the | | distal anterior arm, measuring 6 mm in length. | | | | IMPRESSION: | | Linear metallic foreign body seen projecting at the soft tissues in the | | distal anterior arm, measuring 6 mm in length. | | | | | | | | Signed by: Miguel Antunez, [place] | | Sign Date/Time: 11/16/2019 1:39 PM | + + + +---------+ + + | Performing | Address | City/State/Zipcode | Phone Number | | Organization | | | | + +---------+ + + | [facility] | | | | + +---------+ + + Foreign Body (11/16/2019 1:14 PM PDT) + + + | Narrative | Performed At | + + + | Osiel Barreto MD 11/16/2019 2:58 PM Foreign Body | | | Date/Time: 11/16/2019 2:55 PM Performed by: Osiel Barreto MD | | | Authorized by: Osiel Barreto MD Consent: Consent | | | obtained: Verbal Consent given by: Patient Risks | | | discussed: Bleeding, infection, pain, worsening of condition, poor | | | cosmetic result, nerve damage and incomplete removal (Vascular | | | injury) Alternatives discussed: No treatment, alternative | | | treatment, delayed treatment and referral Location: Location: | | | Arm Arm location: Antecubital fossa. Depth: Subcutaneous | | | Pre-procedure details: Imaging: X-ray (C arm) Neurovascular | | | status: intact Preparation: Patient was prepped and draped in | | | usual sterile fashion Anesthesia: Anesthesia method: Local | | | infiltration Local anesthetic: Lidocaine 1% WITH epi Procedure | | | type: Procedure complexity: Complex Procedure details: | | | Scalpel size: 15 Incision length: Will1 Localization | | | method: Probed and finder needle Bloodless field: yes | | | Removal mechanism: Forceps Guidance: fluoroscopy | | | Foreign bodies recovered: None Post-procedure details: | | | Neurovascular status: intact Confirmation: Residual foreign | | | bodies remain Skin closure: Sutures Number of sutures: 1 | | | Suture size: 4-0 Suture material: Nylon Suture | | | technique: Simple interrupted Dressing: Antibiotic ointment, | | | non-adherent dressing and adhesive bandage Patient tolerance of | | | procedure: Tolerated well, no immediate complications | | + + + US Extremity Nonvascular Limited Left (11/15/2019 12:00 AM PDT) + + | Specimen | + + | | + + + + + | Narrative | Performed At | + + + | External films for comparison only | [facility] | | | | | No results will be in the chart. | | + + + + +---------+ + + | Performing | Address | City/State/Zipcode | Phone Number | | Organization | | | | + +---------+ + + | [facility] | | | | + +---------+ + + , Urine, Qual (10/07/2019 5:43 PM PST) + + + + + + | Component | Value | Ref Range | Performed | Pathologist | | | | | At | Signature | + + + + + + | HCG | Negative | Negative | [facility] | | | Qualitative | | | [facility] | | | , Urine | | | MEDICAL | | | | | | CENTER - | | | | | | LABORATORY | | + + + + + + + + | Specimen | + + | Urine | + + + + + + + | Performing | Address | City/State/Zipcode | Phone Number | | Organization | | | | + + + + + | [facility] | [address] | [place] | [phone] | | [facility] | | [address] | | | - LABORATORY | | | | + + + + + Culture, Urine (10/07/2019 5:43 PM PST) + + + + + + | Component | Value | Ref Range | Performed | Pathologist | | | | | At | Signature | + + + + + + | Culture | >100,000 CFU/ml Mixed | | [facility] | | | | marisel (multiple | | [facility] | | | | morphologies | | MEDICAL | | | | present)Comment: | | CENTER - | | | | Suggests contamination | | LABORATORY | | | | with urogenital or skin | | | | | | marisel.No further work-up | | | | | | to follow. | | | | + + + + + + | Culture | 30,000 CFU/ml Beta | | [facility] | | | | Hemolytic Streptococci, | | [facility] | | | | Group BComment: If | | MEDICAL | | | | client is , | | CENTER - | | | | recommendations for | | LABORATORY | | | | intrapartum prophylaxis | | | | | | for Group B streptococci | | | | | | are penicillin or | | | | | | ampicillin. While | | | | | | cefazolin is recommended | | | | | | for penicillin-allergic | | | | | | women at low risk for | | | | | | anaphylaxis, those at | | | | | | high risk for | | | | | | anaphylaxis may receive | | | | | | clindamycin or | | | | | | erythromycin. Group B | | | | | | streptococci are | | | | | | susceptible to | | | | | | ampicillin, penicillin, | | | | | | and cefazolin, but may | | | | | | be resistant to | | | | | | clindamycin and/or | | | | | | erythromycin. When a | | | | | | Group B Streptococcus is | | | | | | isolated from a | | | | | | woman with | | | | | | severe penicillin | | | | | | allergy (high risk for | | | | | | anaphylaxis), | | | | | | clindamycin and | | | | | | erythromycin should be | | | | | | tested and reported. | | | | | | Please contact | | | | | | Microbiology at ext. | | | | | | [phone] with request. | | | | + + + + + + + + | Specimen | + + | Urine - Urine | | specimen obtained by | | clean catch | | procedure (specimen) | + + + + + | Narrative | Performed At | + + + | Mixed gram positive and negative organisms seen. | [facility] | | | [facility] | | | [facility] | | | - LABORATORY | + + + + + + + + | Performing | Address | City/State/Zipcode | Phone Number | | Organization | | | | + + + + + | [facility] | [address] | [place] | [phone] | | [facility] | | [address] | | | - LABORATORY | | | | + + + + + from Last 3 Months Insurance + +--------+ +--------+ +---------+--------+ | Payer | Benefi | Subscriber | Effect | Phone | Address | Type | | | t Plan | ID | martha | | | | | | / | | Dates | | | | | | Group | | | | | | + +--------+ +--------+ +---------+--------+ | [employer] | [employer] | [id number] | | [phone] | | Medica | | MEDICAID HMO | HEALTH | | 020-Pr | 1 | | id | | | MDCD | | esent | | | | | | [place] | | | | | | + +--------+ +--------+ +---------+--------+ | [employer] | [employer] | [id number] | | [phone] | | Medica | | MEDICAID HMO | HEALTH | | 020-Pr | 1 | | id | | | MDCD | | esent | | | | | | [place]MO [place] | | | | | | + +--------+ +--------+ +---------+--------+ + +--------+ +--------+ + + | Guarantor Name | Accoun | Relation to | Date | Phone | Billing Address | | | t Type | Patient | of | | | | | | | | | | + +--------+ +--------+ + + | Nataly Martinez | Person | Self | [birth year] | [address] | | | al/Fam | | 1979 | | [place], [place] | | | lew | | | 5 (Home) | [address] | + +--------+ +--------+ + + | Nataly Martinez | Person | Self | [birth year] | [address] | | | al/Fam | | 1979 | | [place], [place] | | | lew | | | 5 (Home) | [address] | + +--------+ +--------+ + + Advance Directives + + + + + | Type | Date Recorded | Patient | Explanation | | | | Hiv/Aids Care Nurse | | + + + + + | Power of | | | | | Tower Crane Operator | | | | + + + + + | Advance | 10/22/2015 10:31 | | | | Directive | AM | | | + + + + +
--- OUTSIDE RECORDS SUMMARY | ~2020-01-03 | XMS | Encounter Summary ---
Demographics + + + | Address | [address] | | | [place] [address] | + + + | Home Phone | | + + + | Preferred Language | Unknown | + + + | Marital Status | Single | + + + | Spiritism Affiliation | 1013 | + + + | Race | Unknown | + + + | Ethnic Group | Unknown | + + + Author + + + | Author | [facility] | | | and [place] | + + + | Organization | [facility] | | | and [place] [...] Team Providers + +------+ + | Care Steel Rule Die Maker Apprentice Name | Role | Phone | + +------+ + | No, Physician | PCP | Unavailable | + +------+ + Reason for Visit Auth/Cert +--------+--------+ + + + + | Status | Reason | Specialty | Diagnoses / | Referred By | Referred To | | | | | Procedures | Contact | Contact | +--------+--------+ + + + + | | | | | | | +--------+--------+ + + + + Encounter Details +--------+ + + + + | Date | Type | Department | Care Team | Description | +--------+ + + + + | 10/26/ | Anesthesia | [facility] | Jose M Ventura MD | | | 2016 | Event | [facility] | [address] | | | | | [address] | [place], [place] | | | | | [place], | [address] | | | | | [place] [address] | | | | | | [phone] | | | +--------+ + + + + Anesthesia Record + + + + + | Procedure Name | Responsible | Anesthesia Start | Anesthesia Stop Time | | | Anesthesiologist | Time | | + + + + + | NEURAXIAL LABOR | Jose M Ventura MD | 10/26/151921 | 10/26/152155 | | ANALGESIA/ANESTHESIA | | | | + + + + + +----+---+ + + | Da | T | Event | Comment | | te | i | | | | | m | | | | | e | | | +----+---+ + + | 02 | 1 | Out of OR | | | /2 | 9 | Device | | | 2/ | 2 | Start | | | 20 | 2 | | | | 16 | | | | +----+---+ + + | | 1 | An Start | Reassessment prior to anesthesia induction/procedure. | | | 9 | | | | | 2 | | | | | 2 | | | +----+---+ + + | | 1 | Quick Note | Epidural needle placed. | | | 9 | | | | | 3 | | | | | 2 | | | +----+---+ + + | | 1 | Epi/spinal | | | | 9 | Stop | | | | 3 | | | | | 9 | | | +----+---+ + + | | 1 | Epidural | | | | 9 | Bolus | | | | 3 | | | | | 9 | | | +----+---+ + + | | 1 | Epidural | | | | 9 | Infusion | | | | 3 | Started | | | | 9 | | | +----+---+ + + | | 1 | Out of OR | | | | 9 | Device Stop | | | | 4 | | | | | 2 | | | +----+---+ + + | | 2 | Baby Deliv | | | | 1 | | | | | 5 | | | | | 6 | | | +----+---+ + + | | 2 | An Stop | Patient handed off to recovery nurse. | | | 5 | | | | | 6 | | | +----+---+ + + +------+ | Meds | +------+ + +-------+ | Name | Total | + +-------+ | bupivacaine 0.25% (Epidural) | 5 mL | + +-------+ + + | No agents on file. | + + + + | No blood administrations on file. | + + +--------+ + + + | Type | Details | Placement | Removal | +--------+ + + + | Periph | 10/26/15; 1844; 18 gauge; no | 10/26/151844 by | 10/28/15 08 by | | eral | longer indicated; 10/28/15; 804 | Nicci Pederson RN | Simran Mahoney RN | | IV | | | | | Line - | | | | | | | | | | Double | | | | | Lumen | | | | +--------+ + + + | Urethr | 10/26/15; 2029; indicated for | 10/26/152029 by | 10/26/152149 by | | al | acute urinary | Millie Pang RN | Millie Pang RN | | Cathet | retention/obstruction; indwelling | | | | er | double lumen catheter; 100% | | | | | silicone; 14; 3; 10; 10; other | | | | | (see comments) (epidural); leg | | | | | bag to dependent drainage; | | | | | urethral catheter removed, tubing | | | | | intact; short term use; | | | | | 10/26/15; 2149 | | | +--------+ + + + documented in this encounter Social History + +-------+ +--------+------+ | Tobacco [...] this encounter Last Filed Vital Signs + +---------+ + + | Vital Sign | Reading | Time Taken | Comments | + +---------+ + + | Blood Pressure | 113/70 | 10/26/2015 7:41 PM | | | | | PST | | + +---------+ + + | Pulse | - | - | | + +---------+ + + | Temperature | - | - | | + +---------+ + + | Respiratory Rate | - | - | | + +---------+ + + | Oxygen Saturation | 100% | 10/26/2015 7:40 PM | | | | | PST | | + +---------+ + + | Inhaled Oxygen | - | - | | | Concentration | | | | + +---------+ + + | Weight | - | - | | + +---------+ + + | Height | - | - | | + +---------+ + + | Body Mass Index | - | - | | + +---------+ + + documented in this encounter Plan of Treatment Not on filedocumented as of this encounter Procedures + +--------+ + + + | Procedure Name | Priori | Date/Time | Associated Diagnosis | Comments | | | ty | | | | + +--------+ + + + | ANESTHESIA BLOCK | Routin | 10/26/2015 | | Results for this | | | e | 7:47 PM | | procedure are in the | | | | PST | | results section. | + +--------+ + + + documented in this encounter Results ANESTHESIA BLOCK (10/26/2015 7:47 PM PST) + + + | Narrative | Performed At | + + + | Jose M Ventura MD 10/26/2015 19:47 Procedure Note Epidural | | | Procedure: Epidural L2-3, Approach: Midline Technique used | | | to guide the needle to the proximity of the nerve, appropriate | | | space, or fascial plane: Catheter, Incremental Injection . | | | Indication: Patient in Labor. Pre-procedure Events: Patient | | | Identified, Pre-op Evaluation Completed, Airway Assessed, Risks and | | | Benefits Discussed, Procedure Consent Obtained and Timeout | | | Performed. Patient Positioning: Sitting Prep: ChloraPrep used. | | | Skin Local Anesthetic: Lidocaine 1% Needle: 14 G Frilpcande (9 cm). | | | Loss of resistance depth: 4 cm [place] - Saline Catheter depth at skin: 8 | | | cm Ease: Easy Attempts: 1 Dressings: Sterile Dressing | | | Note: Negative Blood Aspirated, CSF Return, Paresthesia and Test | | | Dose. Sitting L2-3 midline epidural, one attempt, good [place] at 4 | | | cm, easy catheter, negative aspiration, negative 3 ml test dose of | | | 1.5 percent lidocaine with 1:200 k epi, catheter taped at 8 cm at | | | the skin, 5 ml .25 percent bupivacaine bolus given and epidural | | | infusion started. Performed by: Performing Provider: ABDOULAYE | | | JOSE M Posadas Electronically Signed by: Jose M Ventura MD ESig | | | date/time: 10/26/2015 19:43 | | + + + documented in this encounter Visit Diagnoses Not on filedocumented in this encounter Administered Medications + +--------+ +-------+------+------+ | Medication Order | MAR | Action | Dose | Rate | Site | | | Action | Date | | | | + +--------+ +-------+------+------+ | bupivacaine (PF) (MARCAINE) | Given | 10/26/19 | 5 mLs | | | | 0.25% injection EPIDURAL, PRN, | | 16 7:39 | | | | | Starting 10/26/15 at 1939, | | PM PST | | | | | Anesthesia Intra-op | | | | | | + +--------+ +-------+------+------+ +---+---+ | | | +---+---+ documented in this encounter"
--- OUTSIDE RECORDS SUMMARY | ~2020-01-03 | XMS | Encounter Summary ---
Demographics + + + | Address | [address] | | | [place] [address] | + + + | Home Phone | | + + + | Preferred Language | Unknown | + + + | Marital Status | Single | + + + | Amish Affiliation | 1013 | + + + | Race | Unknown | + + + | Ethnic Group | Unknown | + + + Author + + + | Author | [facility] | | | and [place] | + + + | Organization | [facility] | | | and [place] [...] Team Providers + +------+ + | Care Windows Systems Admin Name | Role | Phone | + [...] | Specialty | Neurology | Diagnoses | Juvenal | Lu, | | | Services | | Thoracic | MD Katy | Felice Urbina MD | | | Required | | outlet | [address] | [address] | | | | | syndrome | [address] [place] | [place] | | | | | associated | [place], [place] | [place] [address] | | | | | with | [id number] | [address] [place] | | | | | cervical rib | Phone: | [place], [place] | | | | | | [phone] | [address] Phone: | | | | | | Fax: | [phone] | | | | | | [phone] | Fax: | | | | | | | [phone] | +--------+ + + + + + [...] Thoracic | MD Katy | [address] | | | | | outlet | [address] | [place], | | | | | syndrome | [address] [place] | [place] | | | | | associated | [place] | [address] | | | | | with | [id number] | Phone: | | | | | cervical rib | Phone: | [phone] | | | | | Procedures | [phone] | Fax: | | | | | MRI | Fax: | [phone] | | | | | Cervical | [phone] | | | | | | Spine [...] + + | 03/05/ | Office | [facility] | Katy Sanford MD | Health care | | 2018 | Visit | MEDICINE [place] | [address] | maintenance (Primary | | | | [address] | [place] | Dx); Need for | | | | [place] | [address] | pneumococcal | | | | [address] | | vaccination; Need | | | | [phone] | | for Tdap | | | [...] you have any questions, please call us [phone]. Referrals: During your office today we have ordered referrals for you - MRI and Neurology-. The referr al will be reviewed by our Insurance Authorization Coordinators. Once approved the order annette l be sent to the referred providers office. The referred providers office will contact you t o schedule. If you have not heard to schedule your referral/s within 10 business days, gordy jain call our Referral Wind Project Manager at [phone] to check on the status of the [...] y our substance use. Date Last Reviewed: 02/03/201619995919-0750 [facility] [employer]. [address] [place] [address]. All righ ts reserved. This information is [...] Dr. Singh and has decided to c [facility] physicians due to Location. Her [...] PHQ9 SCORE Office Visit from 03/05/2018 in [facility] [place] PHQ-9 Total Score (Patient Health Questionnaire) 8 [...] as needed for Cough. 120 mL 0 Ksnobkzypfidzvr-UGXX-IC (DAYQUIL MULTI-SYMPTOM COLD/FLU PO) Take by mouth. [...] Plan: Discussed I would not be prescribing terminal carman narcotics due to her use of THC. Will give her short term Rx today and she can find another doctor or quit THC. Will refer her to neurology and there is a consideration for surgical correction as well. Will request C-Spine MRI. Continue Gabapentin 800 mg TID Orders: - MRI Cervical Spine wo Contrast; Future; Expected date: 03/05/2018 - AMB Referral to [facility] [place] 5. Substance abuse Assessment & Plan: THC: [...] Portions of this report were transcribed using Jack and Jake's voice recognition soft hunter. 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
--- OUTSIDE RECORDS SUMMARY | ~2020-01-03 | XMS | Encounter Summary ---
Demographics + + + | Address | [address] | | | [place] [address] | + + + | Home Phone | | + + + | Preferred Language | Unknown | + + + | Marital Status | Single | + + + | Oriental Orthodox Affiliation | 1013 | + + + | Race | Unknown | + + + | Ethnic Group | Unknown | + + + Author + + + | Author | [facility] | | | and [place] | + + + | Organization | [facility] | | | and [place] [...] Team Providers + +------+ + | Care Tyre Finisher And Examiner Name | Role | Phone | + [...] | | | | | with | [address] | [address] [place] | | | | | cervical rib | Phone: | [place], [place] | | | | | | [phone] | [address] Phone: | | | | | | Fax: | [phone] | | | | | | [phone] | Fax: | | | | | | | [phone] | +--------+ + + + + + [...] Thoracic | MD Katy | [address] | | | | | outlet | [address] | [place], | | | | | syndrome | [address] [place] | [place] | | | | | associated | [place], [place] | [address] | | | | | with | [address] | Phone: | | | | | cervical rib | Phone: | [phone] | | | | | Procedures | [phone] | Fax: | | | | | MRI | Fax: | [phone] | | | | | Cervical | [phone] | | | | | | Spine [...] + + | 03/05/ | Office | [facility] | Katy Sanford MD | Health care | | 2018 | Visit | MEDICINE [place] | [address] | maintenance (Primary | | | | [address] | [place] | Dx); Need for | | | | [place] | [address] | pneumococcal | | | | [address] | | vaccination; Need | | | | [phone] | | for Tdap | | | [...] you have any questions, please call us [phone]. Referrals: During your office today we have [...] business days, gordy jain call our Referral Transition Mgr at [phone] to check on the status of the [...] y our substance use. Date Last Reviewed: 02/03/201619996144-1512 [employer]. [address] [place] [address]. All righ ts reserved. This information is [...] Dr. Singh and has decided to c [facility] physicians due to Location. Her last [...] PHQ9 SCORE Office Visit from 03/05/2018 in [facility] [place] PHQ-9 Total Score (Patient Health Questionnaire) 8 [...] as needed for Cough. 120 mL 0 Ouzpekskdjhxgtp-ZRAH-UI (DAYQUIL MULTI-SYMPTOM COLD/FLU PO) Take by mouth. [...] Plan: Discussed I would not be prescribing exterminator helper termite narcotics due to her use of THC. Will give her short term Rx today and she can find another doctor or quit THC. Will refer her to neurology and there is a consideration for surgical correction as well. Will request C-Spine MRI. Continue Gabapentin 800 mg TID Orders: - MRI Cervical Spine wo Contrast; Future; Expected date: 03/05/2018 - AMB Referral to [facility] Neu[facility] [place] 5. Substance abuse Assessment & Plan: THC: [...] Portions of this report were transcribed using [employer] voice recognition soft hunter. 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
--- OUTSIDE RECORDS SUMMARY | ~2020-01-03 | XMS | Encounter Summary ---
Demographics + + + | Address | [address] | | | [place] [address] | + + + | Home Phone | | + + + | Preferred Language | Unknown | + + + | Marital Status | Single | + + + | Hinduism Affiliation | 1013 | + + + | Race | Unknown | + + + | Ethnic Group | Unknown | + + + Author + + + | Author | [facility] | | | and [place] | + + + | Organization | [facility] | | | and [...] Team Providers + +------+ + | Care Core Analysis Operator Name | Role | Phone | + +------+ + PCP | Unavailable | + +------+ + Encounter Details +--------+ + + + + | Date | Type | Department | Care Team | Description | +--------+ + + + + | 09/28/ | [facility] | [facility] | [place], | | | 2010 | Encounter | MED CTR EMERGENCY | Deuce Sainz MD [address] | | | | | [place] [address] | [place] | | | | | [place] | [place] [address] | | | | | [address] | [phone] | | | | | [phone] | | | +--------+ + + + [...]
--- OUTSIDE RECORDS SUMMARY | ~2020-01-03 | XMS ---
Demographics + + + | Address | [address] | | | [place] [address] | + + + | Preferred Language | Unknown | + + + | Marital Status | Unknown | + + + | Oriental Orthodox Affiliation | Unknown | + + + | Race | Unknown | + + + | Ethnic Group | Unknown | + + + Author + + + | Author | [facility] | + + + | Organization | [facility] | + + + | Address | [address] | | | [place] [address] | + + + | Phone | | + + + Care Team Providers + + + + | Care Inspector Conveyor Line Name | Role | Phone | + + + + Unavailable | Unavailable | + + + + PROBLEMS +---------+ + + +--------+ + + | Type | Condition | ICD9-CM | [id number] | Onset | Condition | SNOMED | | | | Code | Code | Dates | Status | Code | +---------+ + + +--------+ + + | Problem | Depression | 300.4 | | | Active | 594764730 | | | with | | | | | | | | anxiety | | | | | | +---------+ + + +--------+ + + | Problem | Perioperat | 998.32 | | | Active | 70058586 | | | martha | | | | | | | | dehiscence | | | | | | | | of | | | | | | | | abdominal | | | | | | | | wound with | | | | | | | | | | | | | | | | eviscerati | | | | | | | | on | | | | | | +---------+ + + +--------+ + + | Problem | RUQ pain | 789.01 | | | Active | 438776770 | +---------+ + + +--------+ + + | Problem | 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 | 74448398 | | | rhinitis | | | | | | | | due to | | | | | | | | allergen | | | | | | +---------+ + + +--------+ + + | Problem | Hx of | V11.8 | | | Active | | | | major | | | | | | | | depression | | | | | | +---------+ + + +--------+ + + | Problem | Post-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.44 | | | Active | 05662585 | | | m | | | | | | | | depression | | | | | | +---------+ + + +--------+ + + | 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 | 335362091 | | | diabetes | | | | | | +---------+ + + +--------+ + + | Problem | Palpitatio | | R00.2 | | Active | 43232685 | | | n | | | | | | +---------+ + + +--------+ + + | Problem | Chronic | V58.69 | | | Active | 301548997 | | | prescripti | | | | | | | | on | | | | | | | | benzodiaze | | | | | | | | pine use | | | | | | +---------+ + + +--------+ + + | Problem | Status | V45.79 | | | Active | 745835166 | | | post | | | | | | | | cholecyste | | | | | | | | ctomy | | | | | | +---------+ + + +--------+ + + | Problem | Depression | | F41.8 | | Active | 642350838 | | | with | | | | | | | | anxiety | | | | | | +---------+ + + +--------+ + + | Problem | Peripheral | | G62.9 | | Active | 678752269 | | | | | | | | | | | neuropathy | | | | | | +---------+ + + +--------+ + + ALLERGIES + + + + +--------+ | Substance | Reaction | Event Type | Date | Status | + + + + +--------+ | Codeine | Unknown | Drug Allergy | Jun, | Active | + + + + +--------+ | Gaetano ODT | skin burning | Drug Allergy | Jun, | Active | | | and hot | | | | + + + + +--------+ | Wellbutrin | angry | Drug Allergy | Jun, | Active | + + + + +--------+ | Tramadol HCl | Unknown | Drug Allergy | 04 Jun, 2017 | Active | + + + + +--------+ SOCIAL HISTORY Never Assessed PLAN OF CARE + +---------+ | Activity | Details | + +---------+ +---+ | | +---+ + + + | Follow Up | 2 Weeks Reason:null | + + + VITAL SIGNS + + + + | Height | 60 in | 2017-06-07 | + + + + | Weight | 152 lbs | 2017-06-07 | + + + + | BMI | 29.68 kg/m2 | 2017-06-07 | + + + + | Temperature | 99.3 degrees Fahrenheit | 2017-06-07 | + + + + | Heart Rate | 102 /min | 2017-06-07 | + + + + | Blood pressure systolic | 120 mm Hg | 2017-06-07 | + + + + | Blood pressure diastolic | 86 mm Hg | 2017-06-07 | + + + + MEDICATIONS + + + + + + + +--------+ | Medicati | Instruct | Dosage | Frequenc | Start | End Date | Duration | Status | | on | ions | | y | Date | | | | + + + + + + + +--------+ | Vitamin | | | | | | | Active | | B | | | | | | | | | Complex | | | | | | | | | - | | | | | | | | + + + + + + + +--------+ | Cetirizi | | take 1 | | | | 30 | Active | | ne HCl | | tablet | | | | | | | 10 MG | | by mouth | | | | | | | | | once | | | | | | | | | daily if | | | | | | | | | needed | | | | | | | | | for | | | | | | | | | allergie | | | | | | | | | s | | | | | | + + + + + + + +--------+ | Ibuprofe | Orally | 1 tablet | 8h | | | | Active | | n 600 MG | Three | | | | | | | | | times a | | | | | | | | | day | | | | | | | + + + + + + + +--------+ | Vitamin | Orally | 1 tablet | 24h | | | | Active | | D3 1000 | Once a | | | | | | | | UNIT | day | | | | | | | + + + + + + + +--------+ | Metformi | Orally | 1 tablet | 12h | | | | Active | | n HCl | Twice a | with | | | | | | | 1000 MG | day | meals | | | | | | + + + + + + + +--------+ | Clonazep | Orally | 1 tablet | | 04 Oct, | | 5 day(s) | Active | | am 0.25 | daily | on the | | 2016 | | | | | MG | PRN | tongue | | | | | | | | severe | and | | | | | | | | anxiety | allow to | | | | | | | | | | | | | | | | | | dissolve | | | | | | + + + + + + + +--------+ | Sertrali | Orally | 1 tablet | 24h | | | 30 | Active | | ne HCl | Once a | | | | | day(s) | | | 100 MG | day | | | | | | | + + + + + + + +--------+ | Gabapent | Orally | 1 tablet | 8h | | | TID | Active | | in 800 | Three | | | | | | | | MG | times a | | | | | | | | | day | | | | | | | + + + + + + + +--------+ | Fish Oil | | 1 | | | | | Active | | | | capsule | | | | | | + + + + + + + +--------+ | Spironol | Orally | 1 tab(s) | 12h | | | | Active | | actone | Twice a | | | | | | | | 50 MG | day | | | | | | | + + + + + + + +--------+ RESULTS No Results PROCEDURES + + +--------+ + | Procedure | Date Ordered | Result | Body Site | + + +--------+ + | [facility] MED/CURRENT | Jun 07, 2017 | | | | MED MERGE | | | | + + +--------+ + | DOC MEDS VERIFIED | Jun 07, 2017 | | | | W/PT OR RE | | | | + + +--------+ + IMMUNIZATIONS No Known Immunizations MEDICAL (GENERAL) HISTORY + + +---------+ | Type | Description | Date | + + +---------+ | Medical History | Migraine headache | | + + +---------+ | Medical History | Opiod Abuse-- was in rehab | | | | at [facility] December to February 2015 | | + + +---------+ | Medical History | MTHFR Deficiency | | + + +---------+ | Medical History | Polycystic Ovarian Syndrome | | + + +---------+ | Medical History | Complex PTSD | | + + +---------+ | Medical History | Manic Depressive | | + + +---------+ | Medical History | Hypoglycemia | | + + +---------+ | Medical History | GERD | | + + +---------+ | Surgical History | D&C x2 | | + + +---------+ | Surgical History | Laparoscopy with Laparotomy | 1999 | | | for injured bladder and | | | | uterus | | + + +---------+ | Surgical History | Laparoscopy destruction of | 2007 | | | endometriosis | | + + +---------+ | Surgical History | Gallbladder Removed | 2014 | + + +---------+ | Surgical History | hernia repair (Incisional) | 2014 | + + +---------+ | Surgical History | tubal ligation | 02/2017 | + + +---------+ | Hospitalization History | surgery | | + + +---------+ | Hospitalization History | childbirth x4 vaginal | | | | deliveries | | + + +---------+"
--- OUTSIDE RECORDS SUMMARY | ~2020-01-03 | XMS | Encounter Summary ---
Demographics + + + | Address | [address] | | | [place] [address] | + + + | Home Phone | | + + + | Preferred Language | Unknown | + + + | Marital Status | Single | + + + | Buddhism Affiliation | 1013 | + + + | Race | Unknown | + + + | Ethnic Group | Unknown | + + + Author + + + | Author | [facility] | | | and [place] | + + + | Organization | [facility] | | | and [place] [...] Team Providers + +------+ + | Care Phlebotomist Lab Assistant Name | Role | Phone | + +------+ + PCP | Unavailable | + +------+ + Encounter Details +--------+ + + + + | Date | Type | Department | Care Team | Description | +--------+ + + + + | 04/21/ | Hospital | [facility] | Alexis Pacheco | | | 2011 | Encounter | MED CTR EMERGENCY | MD Nathan [address] | | | | | [place] [address] | [address] [place] | | | | | [place] | [place] [address] | | | | | [address] | [phone] | | | | | [phone] | | | +--------+ + + + [...]
--- OUTSIDE RECORDS SUMMARY | ~2020-01-03 | XMS | Encounter Summary ---
Demographics + + + | Address | [address] | | | [place] [address] | + + + | Home Phone | | + + + | Preferred Language | Unknown | + + + | Marital Status | Single | + + + | Scientologist Affiliation | 1013 | + + + | Race | Unknown | + + + | Ethnic Group | Unknown | + + + Author + + + | Author | [facility] | | | and [place] | + + + | Organization | [facility] | | | and [place] [...] Team Providers + +------+ + | Care Submarine Worker Name | Role | Phone | + +------+ + | Katy Sanford MD | PCP | | + +------+ + Reason for Visit +---------+ + | Reason | Comments | +---------+ + | Results | | +---------+ + Encounter Details +--------+ + + + + | Date | Type | Department | Care Team | Description | +--------+ + + + + | 06/25/ | Telephone | [facility] | Katy Sanford MD | Results | | 2018 | | [facility] [place] | [address] | | | | | [address] | [place] | | | | | [place] | [address] | | | | | [address] | | | | | | [phone] | | | +--------+ + + + [...]
--- OUTSIDE RECORDS SUMMARY | ~2020-01-03 | XMS | Encounter Summary ---
Demographics + + + | Address | [address] | | | [place] [address] | + + + | Home Phone | | + + + | Preferred Language | Unknown | + + + | Marital Status | Single | + + + | Anabaptist Affiliation | 1013 | + + + | Race | Unknown | + + + | Ethnic Group | Unknown | + + + Author + + + | Author | [facility] | | | and [place] | + + + | Organization | [facility] | | | and [...] Providers + +------+ + | Care Floor Press Operator Name | Role | Phone | + +------+ + | Mohinder Gage DO | PCP | | + +------+ + Encounter Details +--------+ + + + + | Date | Type | Department | Care Team | Description | +--------+ + + + + | 12/10/ | Imaging | [facility] | Provider, | | | 2020 | Exam | MED CTR EXTERNAL | MD [place] [address] | | | | | IMAGING [address] | [address] | | | | | [address] [place] | [place] [address] | | | | | [place] [address] | | | | | | [phone] | | | +--------+ + + + [...] + +--------+ + + + | XR ELBOW LEFT 2 VW | Routin | 11/15/2019 | | Results for this | | | e | 12:05 AM | | procedure are in the | | | | PDT | | results section. | + +--------+ + + + documented in this encounter Results XR Elbow Left 2 Vw (11/15/2019 12:05 AM PDT) + + | Specimen | [...]
--- OUTSIDE RECORDS SUMMARY | ~2020-01-03 | XMS | Encounter Summary ---
Demographics + + + | Address | [address] | | | [place] [address] | + + + | Home Phone | | + + + | Preferred Language | Unknown | + + + | Marital Status | Single | + + + | Episcopal Affiliation | 1013 | + + + | Race | Unknown | + + + | Ethnic Group | Unknown | + + + Author + + + | Author | [facility] | | | and [place] | + + + | Organization | [facility] | | | and [place] [...] Team Providers + +------+ + | Care Wood Room Supervisor Name | Role | Phone | + +------+ + | Katy Sanford MD | PCP | | + +------+ + Encounter Details +--------+ + + + + | Date | Type | Department | Care Team | Description | +--------+ + + + + | 03/20/ | Abstract | [facility] | Katy Sanford MD | | | 2018 | | [facility] | [address] | | | | | [address] | [place] | | | | | [place] | [address] | | | | | [address] | | | | | | [phone] | | | +--------+ + + + [...] | EXTERNAL LAB: PAP | Routin | 08/14/2013 | | Results for this | | SMEAR | e | | | procedure are in the | | | | | | results section. | + +--------+ + + + documented in this encounter Results External Lab: PAP Smear (08/14/2013) + + + + + + | [...]
--- OUTSIDE RECORDS SUMMARY | ~2020-01-03 | XMS | Encounter Summary ---
Demographics + + + | Address | [address] | | | [place] [address] | + + + | Home Phone | | + + + | Preferred Language | Unknown | + + + | Marital Status | Single | + + + | Zoroastrian Affiliation | 1013 | + + + | Race | Unknown | + + + | Ethnic Group | Unknown | + + + Author + + + | Author | [facility] | | | and [place] | + + + | Organization | [facility] | | | and [place] [...] Team Providers + +------+ + | Care Densitometrist Name | Role | Phone | + [...] +--------+ + + + + + | Closed | Specialty | Neurology | Diagnoses | Juven[facility] | Dimitrova, | | | Services | | Thoracic | MD Katy | [place], | | | Required | | outlet | [address] | [address] | | | | | syndrome | [address] [place] | [address] | | | | | associated | [place] | [place] | | | | | with | [address] | [place] | | | | | cervical rib | Phone: | [address] | | | | | | [phone] | Phone: | | | | | | Fax: | [phone] | | | | | | [phone] | Fax: | | | | | | | [phone] | +--------+ + + + + + Reason for Visit + + + | Reason | Comments | + + + | Referral | | + + + Encounter Details +--------+ + + + + | Date | Type | Department | Care Team | Description | +--------+ + + + + | 06/08/ | Telephone | [facility] | Katy Sanford MD | Referral | | 2018 | | [facility] [place] | [address] | | | | | [address] | [place] | | | | | [place] | [address] | | | | | [address] | | | | | | [phone] | | | +--------+ + + + [...] of this encounter Plan of Treatment + + +--------+ + + | Name | Type | Priori | Associated Diagnoses | Order Schedule | | | | ty | | | + + +--------+ + + | Neurology, External | Outpatient | Routin | Thoracic outlet | Ordered: 06/08/2018 | | - AMB Referral | Referral | e | syndrome associated | | | | | | with cervical rib | | + + +--------+ + + documented as of this encounter Visit Diagnoses + + | Diagnosis | + + | 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
--- OUTSIDE RECORDS SUMMARY | ~2020-01-03 | XMS | Encounter Summary ---
Demographics + + + | Address | [address] | | | [place] [address] | + + + | Home Phone | | + + + | Preferred Language | Unknown | + + + | Marital Status | Single | + + + | Taoist Affiliation | 1013 | + + + | Race | Unknown | + + + | Ethnic Group | Unknown | + + + Author + + + | Author | [facility] | | | and [place] | + + + | Organization | [facility] | | | and [place] [...] Team Providers + +------+ + | Care Circulation Supervisor Name | Role | Phone | + +------+ + PCP | Unavailable | + +------+ + Encounter Details +--------+ + + + + | Date | Type | Department | Care Team | Description | +--------+ + + + + | 10/06/ | [facility] | [facility] | Edi Sprague | | | 2010 | Encounter | MED CTR XRAY [address] | [address] | | | | | [place] | [place] | | | | | [place] [address] | [address] | | | | | [phone] | | | +--------+ + + + [...]
--- OUTSIDE RECORDS SUMMARY | ~2020-01-03 | XMS | Encounter Summary ---
Demographics + + + | Address | [address] | | | [place] [address] | + + + | Home Phone | | + + + | Preferred Language | Unknown | + + + | Marital Status | Single | + + + | Anabaptist Affiliation | CHR | + + + | Race | White | + + + | Ethnic Group | Not or | + + + Author + + + | Author | [facility] | + + + | Organization | [facility] | + + + | Address | Unknown | + + + | Phone | Unavailable | + + + Support + + +---------+ + | Name | Relationship | Address | Phone | + + +---------+ + | Radha Soria | ECON | Unknown | | + + +---------+ + Care Team Providers + +------+ + | Care Business Office Technology Instructor Name | Role | Phone | + [...] + + | 12/10/ | Telephone | [facility] | Mickie Gottlieb, | Pain | | 2020 | IP | Department [address] | PETROLEUM ENGINEER [address] | | | | | [address] | [address] | | | | | [facility] | [place], [place] | | | | | [place] | [address] | | | | | [address] | [phone] | | | | | [phone] | | | +--------+ + + + [...]
--- OUTSIDE RECORDS SUMMARY | ~2020-01-03 | XMS | Encounter Summary ---
Demographics + + + | Address | [address] | | | [place] [address] | + + + | Home Phone | | + + + | Preferred Language | Unknown | + + + | Marital Status | Single | + + + | Lutheran Affiliation | 1013 | + + + | Race | Unknown | + + + | Ethnic Group | Unknown | + + + Author + + + | Author | [facility] | | | and [place] | + + + | Organization | [facility] | | | and [place] [...] Team Providers + +------+ + | Care Galvanizing Pot Runner Name | Role | Phone | + +------+ + | No, Physician | PCP | Unavailable | + +------+ + Reason for Visit +--------+ + | Reason | Comments | +--------+ + | Spasms | | +--------+ + Encounter Details +--------+ + + + + | Date | Type | Department | Care Team | Description | +--------+ + + + + | 06/07/ | Emergency | [facility] | [facility]on [facility] | Muscle spasm | | 2019 | | [facility] | [facility] [address] | (Primary Dx); | | | | CENTER [address] | [address] [place] | Methamphetamine | | | | [place], [place] | [place] [address] | abuse (HCC) | | | | [address] | [phone] | | | | | [phone] | | | +--------+ + + + [...] + + + | Blood Pressure | 104/78 | 06/07/2019 4:30 AM | | | | | PDT | | + + + + + | Pulse | 98 | 06/07/2019 4:30 AM | | | | | PDT | | + + + + + | Temperature | 35.6 C (96 F) | 06/07/2019 2:29 AM | | | | | PDT | | + + + + + | Respiratory Rate | 18 | 06/07/2019 4:30 AM | | | | | PDT | | + + + + + | Oxygen Saturation | 97% | 06/07/2019 4:30 AM | | | | | PDT | | + + + + + | Inhaled Oxygen | - | - | | | Concentration | | | | + + + + + | Weight | 49.9 kg (110 lb) | 06/07/2019 2:29 AM | | | | | PDT | | + + + + + | Height | 152.4 cm (5') | 06/07/2019 2:29 AM | | | | | PDT | | + + + + + | Body Mass Index | 21.48 | 06/07/2019 2:29 AM | | | | | PDT | | + + + + + documented in this encounter Discharge Instructions AttachmentsThe following attachments cannot be sent through Care Everywhere.Muscle Spasm (E nglish)Getting Help, Addiction (Occitan)documented in this encounter Medications at Time of [...] + + + +---------+ + + | benzonatate | Take 1 capsule by | 30 | 0 | 12/26/19 | | | (DOMENIC ZAMAN) | mouth 3 times daily | capsule | | 19 | 9 | | 100 mg | as needed for Cough. | | | | | | capsuleIndications: | | | | | | | Viral URI with cough | | | | | | + + + +---------+ + + | busPIRone (BUSPAR) | Take 1 tablet by | 90 | 1 | 08/10/20 | | | 10 MG | mouth 3 times daily | tablet | | 18 | 9 | | tabletIndications: | as needed. | | | | | | Anxiety with | | | | | | | depression | | | | | | + [...] + + | COMPREHENSIVE | STAT | 06/07/2019 | | Results for this | | METABOLIC PANEL | | 2:58 AM | | procedure are in the | | | | PDT | | results section. | + +--------+ + + + documented in this encounter Results Comprehensive Metabolic Panel (06/07/2019 2:58 AM PDT) + + + + + + | Component | Value | Ref Range | Performed | Pathologist | | | | | At | Signature | + + + + + + | Na | 140 | 136 - 145 | [facility] | | | | | mmol/L | [facility] | | | | | | [facility] | | | | | | [facility] - | | | | | | LABORATORY | | + + + + + + | K | 3.5 | 3.4 - 5.1 | [facility] | | | | | mmol/L | [facility] | | | | | | [facility] | | | | | | [facility] - | | | | | | LABORATORY | | + + + + + + | Cl | 106 | 98 - 107 mmol/L | [facility] | | | | | | [facility] | | | | | | [facility] | | | | | | [facility] - | | | | | | LABORATORY | | + + + + + + | CO2 | 29 | 20 - 31 mmol/L | [facility] | | | | | | [facility] | | | | | | [facility] | | | | | | C[facility] - | | | | | | LABORATORY | | + + + + + + | Anion Gap | 5 | 3 - 16 mmol/L | [facility] | | | | | | [facility] | | | | | | [facility] | | | | | | [facility] - | | | | | | LABORATORY | | + + + + + + | Glucose | 81 | 60 - 106 mg/dL | [facility] [...] + + + + | Creatinine | 0.63 | 0.55 - 1.02 | [facility] | | | | | mg/dL | [facility] | | | | | | MEDICAL | | | | | | CENTER - | | | | | | LABORATORY | | + + + + + + | eGFR if not | >60Comment: GLOMERULAR | >=60 | [facility] | | | | FILTRATION | mL/min/1.73m2 | [facility] | | | [facility] | RATE,ESTIMATED | | MEDICAL | | | | mL/min/1.84r8Oyje than | | CENTER - | | [...] + + + + | Calcium | 10.3 | 8.7 - 10.4 | [facility] | | | | | mg/dL | [facility] | | | | | | MEDICAL | | | | | | CENTER - | | | | | | LABORATORY | | + + + + + + | Albumin | 5.0 (H) | 3.2 - 4.8 g/dL | [facility] | | | | | | [facility] | | | | | | [facility] | | | | | | C[facility] - | | | | | | LABORATORY | | + + + + + + | Bilirubin | 0.2 (L) | 0.3 - 1.2 mg/dL | [facility] | | | Total | | | [facility] | | | | | | [facility] | | | | | | CENTER - | | | | | | LABORATORY | | + + + + + + | Total | 7.2 | 5.7 - 8.2 g/dL | [facility] | | | Protein | | | [facility] | | [...] + + + + | ALT | 20 | 10 - 49 U/L | [facility] | | | | | | [facility] | | | | | | [facility]ICAL | | | | | | CENTER - | | | | | | LABORATORY | | + + + + + + | Alkaline | 64 | 46 - 116 U/L | [facility] | | | Phosphatase | | | [facility] | | | | | | [facility]ICAL | | | | | | CENTER - | | | | | | LABORATORY | | + + + + + + | Globulin | 2.2 | 2.1 - 3.8 g/dL | [facility] | | | | | | [facility] | | | [facility] | | [facility] | | | | | | C[facility] - | | | | | | LABORATORY | | + + + + + + | Albumin/Juana | 2.3 (H) | 0.8 - 1.9 | [facility] | | | bulin Ratio | | | [facility] | | | | | | [facility] | | | | | | CENTER - | | | | | | LABORATORY | | + + + + + + | BUN/Creatin | 14.3 | | [facility] | | | ine Ratio | | | 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, unspecified | + + documented in this encounter Administered Medications + +--------+ +-------+------+------+ | Medication Order | MAR | Action | Dose | Rate | Site | | | Action | Date | | | | + +--------+ +-------+------+------+ | ketorolac (TORADOL) injection | Given | 06/07/20 | 15 mg | | | | 15 mg 15 mg, Intravenous, ONCE, | | 19 3:04 | | | | | 06/07/19 at 0245, For 1 dose | | AM PDT | | | | + +--------+ +-------+------+------+ +---+---+ | | | +---+---+ + +-------+ +------+---+---+ | LORazepam (ATIVAN) injection 1 | Given | 06/07/20 | 1 mg | | | | mg 1 mg, Intravenous, ONCE, Mon | | 19 3:04 | | | | | 06/07/19 at 024, For 1 dose | | AM PDT | | | | + +-------+ +------+---+---+ +---+---+ | | | +---+---+ + +---------+ +--------+-------+---+ | sodium chloride 0.9% (NS) bolus | New Bag | 06/07/20 | 1,000 | 2000 | | | 1,000 mL 1,000 mL, Intravenous, | | 19 2:59 | mLs | mL/hr | | | Administer over 30 Minutes, | | AM PDT | | | | | ONCE, Mon06/07/19 at 0245, For 1 | | | | | | | dose | | | | | | + +---------+ +--------+-------+---+ +---+---+ | | | +---+---+ documented in this encounter"
--- OUTSIDE RECORDS SUMMARY | ~2020-01-03 | XMS | Encounter Summary ---
Demographics + + + | Address | [address] | | | [place] [address] | + + + | Home Phone | | + + + | Preferred Language | Unknown | + + + | Marital Status | Single | + + + | Yazidism Affiliation | 1013 | + + + | Race | Unknown | + + + | Ethnic Group | Unknown | + + + Author + + + | Author | [facility] | | | and [place] | + + + | Organization | [facility] | | | and [...] Team Providers + +------+ + | Care Salon Supervisor Name | Role | Phone | [...] 2019 | | [facility] CASE | [phone] | methamphetamine | | | | MANAGEMENT [address] | | abuse) | | | | [place], | | | | | | [place] [address] | | | | | | [phone] | | | +--------+ + + + [...]
--- OUTSIDE RECORDS SUMMARY | ~2020-01-03 | XMS | Encounter Summary ---
Demographics + + + | Address | [address] | | | [place] [address] | + + + | Home Phone | | + + + | Preferred Language | Unknown | + + + | Marital Status | Single | + + + | Zoroastrianism Affiliation | 1013 | + + + | Race | Unknown | + + + | Ethnic Group | Unknown | + + + Author + + + | Author | [facility] | | | and [place] | + + + | Organization | [facility] | | | and [place] [...] Team Providers + +------+ + | Care Film Sound Engineer Name | Role | Phone | + +------+ + | Mohinder Gage DO | PCP | | + +------+ + Reason for Visit + + + | Reason | Comments | + + + | 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
--- OUTSIDE RECORDS SUMMARY | ~2020-01-03 | XMS | Encounter Summary ---
Demographics + + + | Address | [address] | | | [place] [address] | + + + | Home Phone | | + + + | Preferred Language | Unknown | + + + | Marital Status | Single | + + + | Christianity Affiliation | 1013 | + + + | Race | Unknown | + + + | Ethnic Group | Unknown | + + + Author + + + | Author | [facility] | | | and [place] | + + + | Organization | [facility] | | | and [...] Team Providers + +------+ + | Care Dining Server Name | Role | Phone | + +------+ + | Mohinder Gage DO | PCP | | + +------+ + Reason for Visit + + + | Reason | Comments | + + + | ED Follow-up | ED f/u drug use, panic attack | + + + Encounter Details +--------+ + + + + | Date | Type | Department | Care Team | Description | +--------+ + + + + | 12/01/ | Telephone | [facility] | Antonia Goyal | ED Follow-up (ED f/u | | 2019 | | [facility] CASE | [phone] | drug use, panic | | | | MANAGEMENT [address] | | attack) | | | | [place], | | | | | | [place] [address] | | | | | | [phone] | | | +--------+ + + + [...]
--- OUTSIDE RECORDS SUMMARY | ~2020-01-03 | XMS | Encounter Summary ---
Demographics + + + | Address | [address] | | | [place] [address] | + + + | Home Phone [...] | Organization | [facility] [...] Team Providers + +------+ + | Care Lap Polisher Name | Role | Phone | + [...] 2019 | | MED CTR CASE | [phone] | drug use, panic | | | | MANAGEMENT [address] | | attack) | | | | [place], | | | | | | [place] [address] | | | | | | [phone] | | | +--------+ + + + [...]
--- OUTSIDE RECORDS SUMMARY | ~2020-01-03 | XMS | Encounter Summary ---
Demographics + + + | Address | [address] | | | [place] [address] | + + + | Home Phone | | + + + | Preferred Language | Unknown | + + + | Marital Status | Single | + + + | Synagogue Affiliation | CHR | + + + | Race | White | + + + | Ethnic Group | Not or | + + + Author + + + | Author | [facility] | + + + | Organization | [facility] | + + + | Address | Unknown | + + + | Phone | Unavailable | + + + Support + + +---------+ + | Name | Relationship | Address | Phone | + + +---------+ + | Radha Soria | ECON | Unknown | | + + +---------+ + Care Team Providers + +------+ + | Care Tobacco Stripper Hand Name | Role | Phone | + +------+ + | No Pcp Per Patient | PCP | Unavailable | + +------+ + Reason for Visit + + + | Reason | Comments | + + + | Medication requested | | + + + AUTH/CERT +--------+--------+ + + + + | Status [...] + + | 12/10/ | Emergency | [facility] Emergency | [place], | | | 2019 | | Department [address] | MD Naldo [address] | | | | | [address] | [facility] Jaycee Soto | | | | | [facility] | [place], [place] | | | | | [place], [place] | [address] | | | | | [address] | [phone] | | | | | [phone] | | | +--------+ + + + [...] contact | No / Unsure | 12/11/2019 8:25 PM | | with someone who was confirmed [...] documented in this encounter Discharge Instructions Instructions Naldo Henao MD - 12/11/2019For pain: 1) Take ibuprofen 400 mg every 4-6 hours and acetaminophen (tylenol) 1000 mg every 6-8 hour s. Do not take more than 4000 mg of acetaminophen in a 24 hours period. 2) Use ice packs 20 minutes at a time every 6-8 hours to relieve swelling 3) Apply lidocaine gel to help numb up the area documented in this encounter Medications at Time of Discharge + + + +---------+ + + | Medication | Sig | Dispensed | Refills | Start | End Date | | | | | | Date | | + + + +---------+ + + | albuterol 90 | Inhale by mouth. | | 0 | 03/05/20 | | | mcg/actuation | | | | 18 | | | inhalation HFA | | | | | | | aerosol inhaler | | | | | | + + + +---------+ + + | baclofen 20 mg | Take 20 mg by mouth. | | 0 | 10/04/19 | | | oral tablet | | | | 19 | | + + + +---------+ + + | clonazePAM 1 mg | Take 1 mg by mouth. | | 0 | | | | oral tablet | | | | | | + + + +---------+ + + | desvenlafaxine | take 1 tablet by | | 0 | 11/16/19 | | | succinate 25 mg oral | mouth daily | | | 20 | | | tablet extended | | | | | | | release 24 hr | | | | | | + + + +---------+ + + | fluticasone | Instill 1 spray in | | 0 | 06/25/20 | | | propionate 50 | nose. | | | 18 | | | mcg/actuation nasal | | | | | | | spray,suspension | | | | | | + + + +---------+ + + | gabapentin 800 mg | take 1 tablet by | | 0 | 10/11/19 | | | oral tablet | mouth three times a | | | 19 | | | | day AND AN | | | | | | | ADDITIONAL 1 1/2 | | | | | | | TABLETS AT BEDTIME | | | | | + + + +---------+ + + | lidocaine 2 % | Apply to affected | 5 mL | 0 | 12/11/19 | | | mucous membrane | area once daily as | | | 20 | | | jelly | needed for severe | | | | | | | pain. | | | | | + + + +---------+ + + | sertraline 100 mg | Take 100 mg by | | 0 | 07/24/20 | | | oral tablet | mouth. | | | 18 | | + + + +---------+ + + | spironolactone 100 | Take 100 mg by | | 0 | | | | mg oral tablet | mouth. | | | | | + + + +---------+ + + | SUMAtriptan 100 mg | Take 100 mg by | | 0 | 12/03/19 | | | oral tablet | mouth. | | | 20 | | + + + +---------+ + + | traZODone 100 mg | take 1-2 tablets by | | 0 | 10/22/19 | | | oral tablet | mouth at bedtime | | | 20 | | + + + +---------+ + + | doxycycline | Take 1 capsule by | 14 | 0 | 12/11/19 | | | monohydrate 100 mg | mouth every twelve | capsule | | 20 | 0 | | oral capsule | hours for 7 days. | | | | | | | (Pharmacist to | | | | | | | substitute salt form | | | | | | | as needed) | | | | | + + [...] + + documented in this encounter Results ED INFORMATION EXCHANGE (12/11/2019 8:26 PM PDT) + + | Specimen | + + | | + + + + + | Narrative | Performed At | + + + | [facility]NOTIFICATION?12/11/2019 20:25?NATALY BEDOYA?MRN: | [facility] | | [id number] Criteria Met 3 Facilities In 60 Days 5 Visits | MEDICAL | | In 12 Months Has Guidelines PDMP Security and Safety No | [employer] | | recent Security Events currently on file ED Care Guidelines from | | | [employer] [place] Last Updated: 12/11/19 10:08 AM Care | | | Recommendation: Receiving mental health services through [employer]. | | | Please contact [employer] for any mental health concerns: Carlo | | | [phone] [place] [phone] Crisis Line [phone] These | | | are guidelines and the provider should exercise clinical judgment when | | | providing care. Prescription Drug Report (12 Mo.) Rx | | | Details Fill Date Drug Description Qty. Prescriber CS MED | | | 2019-11-20 OXYCODONE-ACETAMINOPHEN 5-325 15 KAMILLE ALEJANDRO MD 2 | | | 22.5 2019-11-13 CLONAZEPAM 2 MG TABLET 15 ISABELA OLSWANGER 4 0 | | | 2019-11-08 GABAPENTIN 800 MG TABLET 135 ISABELA OLSWANGER 0 | | | 2019-10-21 GABAPENTIN 800 MG TABLET 90 ISABELA OLSWANGER 0 | | | 2019-10-15 CLONAZEPAM 1 [...] E.D. Visit Count (12 mo.) Facility Visits [facility] 1 | | | [facility] 2 [facility] | | | [place] 3 [facility] 11 Total 17 Note: | | | Visits indicate total known visits. Recent Emergency Department | | | Visit Summary Showing 10 most recent visits out of 18 in the past 12 | | | months Date Facility City State Type Diagnoses or Chief Complaint | | | Dec 11, 2019 [facility] [place] Emergency | | | 10,800. Medication request Dec 11, 2019 [facility] and | | | [facility] [place] Emergency 10,800. Infection | | | 10,800. L Arm/Headache 18,400. Personal history of other | | | diseases of the nervous system and 18,400. Cutaneous abscess, | | | unspecified 18,400. Other stimulant abuse, uncomplicated | | | 18,400. Paresthesia of skin Dec 08, 2019 [facility] | | | [facility] Emergency Spasms Other stimulant abuse, | | | uncomplicated Other problems related to lifestyle Apr , | | | 2020 [facility]. [place] Emergency | | | Hallucinations Other stimulant abuse, uncomplicated Apr | | | 2019 [facility]. [place] Emergency Medical | | | Complacations from alc and drug abuse Spasms Other | | | stimulant abuse, uncomplicated Dec 01, 2019 [facility] | | | [facility]. [place] Emergency CP,sob Pain Tachycardia | | | Restlessness and agitation Other stimulant use, unspecified | | | with intoxication, unspecifi Panic disorder [episodic paroxysmal | | | anxiety] Nov 20, 2019 [facility] | | | Emergency needle stuck in arm Foreign Body in Skin | | | Other injury of unspecified body region, initial encounter Mar | | | 2019 [facility] Emergency Pruritis | | | Adverse effect of unspecified drugs, medicaments and biologic | | | Pruritus, unspecified Urticaria, unspecified Nov 16, 2019 | | | [facility] Emergency Arm Injury | | | Superficial foreign body of left upper arm, initial encounter | | | Contact with needle (sewing), initial encounter Encounter for | | | immunization Nov 15, 2019 [facility]. [place] | | | Emergency FB STUCK IN ARM Other psychoactive substance | | | use, unspecified, uncomplicated Other injury of unspecified body | | | region, initial encounter Recent Inpatient Visit Summary | | | No recorded inpatient visits. Care Team Provider Specialty Phone | | | Fax Service Dates Giancarlo Quarles -, [facility] | | | Health Worker Nov 16, 2019 - Current | | | Real Time Content Portal This patient has registered at the [facility] | | | [facility] Emergency Department For more information | | | visit: | | | [email or web address] | | | [email or web address] e PLEASE NOTE: 1. Any care recommendations [...] or completeness of information provided. ? 2020 [employer] | | | [employer] - [email or web address] | | + + + + + [...] on | | fileED Care Guidelines from [employer] - [place] Updated: 12/11/19 10:08 AM Care | | Recommendation:Receiving mental health services through [employer]. Please contact | | [employer] for any mental health concerns:Carlo [phone] | | [phone] Line [phone] are guidelines and the provider should | [...] BOWERS MD 4 0 Rx SummaryMetric Count II-V Rx 11 CS-II Rx 2 Quantity | | Dispensed 530 [facility] 2 Benzos 8 Opioids 2 Long Acting | | Opioids 0 E.D. Visit Count (12 mo.)Facility Visits [facility] 1 [facility] | | and Science [place] 2 [facility] 3 [facility] | | Center 11 Total 17 Note: Visits indicate total known visits. Recent Emergency | | Department Visit SummaryShowing 10 most recent visits out of 18 in the past 12 | | monthsDate Facility City State Type Diagnoses or Chief Complaint Dec 11, 2019 [place] | | [facility] [place] Emergency 10,800. Medication request Dec 8, | | 2019 [facility] [place] Emergency 10,800. Infection | | 10,800. L Arm/Headache 18,400. Personal history of other diseases of the nervous | | system and 18,400. Cutaneous abscess, unspecified 18,400. Other stimulant abuse, | | uncomplicated 18,400. Paresthesia of skin [facility] 08[facility] | | Emergency Spasms Other stimulant abuse, uncomplicated Other problems related | | to lifestyle Dec 08, 2019 [facility]. [place] Emergency Hallucinations | | Other stimulant abuse, uncomplicated Dec 06, 2019 [facility] | | Emergency Medical Complacations from alc and drug abuse Spasms Other stimulant | | abuse, uncomplicated Dec 01, 2019 [facility]. [place] Emergency | | CP,sob Pain Tachycardia Restlessness and agitation Other stimulant use, | | unspecified with intoxication, unspecifi Panic disorder [episodic paroxysmal anxiety] | | Nov 20, 2019 [facility]. [place] Emergency needle stuck in arm | | Foreign Body in Skin Other injury of unspecified body region, initial encounter Mar | | 2019 [facility] Emergency Pruritis Adverse effect of | | unspecified drugs, medicaments and biologic Pruritus, unspecified Urticaria, | | unspecified Nov 16, 2019 [facility] Emergency Arm Injury | | Superficial foreign body of left upper arm, initial encounter Contact with needle | | (sewing), initial encounter Encounter for immunization Nov 15, 2019 [facility] | | [facility] [place]. [place] Emergency FB STUCK IN ARM Other psychoactive substance use, | | unspecified, uncomplicated Other injury of unspecified body region, initial encounter | | Recent Inpatient Visit SummaryNo recorded inpatient visits. Care TeamProvider | | Specialty Phone Fax Service Dates Giancarlo Quarles -, [facility] | | Worker Nov 16, 2019 - Current Collective PortalThis patient has | | registered at the [facility] Emergency Department For more | | information visit: | | [email or web address] PLEASE | | NOTE: 1. Any care [...] to the | | limitations of applicable [employer]ies. 3. You should consult directly with | | the organization that provided a care guideline or other clinical history with any | | questions about additional information or accuracy or completeness of information | | provided.? 2020 [employer] - [email or web address] | |[facility] 3 | |[facility] 11 | |Total 17 | |Note: Visits indicate total known visits. | | | |Recent Emergency Department Visit Summary | |Showing 10 most recent visits out of 18 in the past 12 months | |Date Facility City State Type Diagnoses or Chief Complaint | |Dec 11, 2019 [facility] [place] Emergency | | 10,800. Medication request | | | |Dec 11, 2019 [facility] [place] Emergency | | 10,800. Infection | | 10,800. L Arm/Headache | | 18,400. Personal history of other diseases of the nervous system and | | 18,400. Cutaneous abscess, unspecified | | 18,400. Other stimulant abuse, uncomplicated | | 18,400. Paresthesia of skin | | | |Dec 08, 2019 [facility]. [place] Emergency | | Spasms | | Other stimulant abuse, uncomplicated | | Other problems related to lifestyle | | | |Dec 08, 2019 [facility]. [place] Emergency | | Hallucinations | | Other stimulant abuse, uncomplicated | | | |Dec 06, 2019 [facility]. [place] Emergency | | Medical Complacations from alc and drug abuse | | Spasms | | Other stimulant abuse, uncomplicated | | | |Dec 01, 2019 [facility]. [place] Emergency | | CP,sob | | Pain | | Tachycardia | | Restlessness and agitation | | Other stimulant use, unspecified with intoxication, unspecifi | | Panic disorder [episodic paroxysmal anxiety] | | | |Nov 20, 2019 [facility]. [place] Emergency | | needle stuck in arm | | Foreign Body in Skin | | Other injury of unspecified body region, initial encounter | | | |Nov 16, 2019 [facility] Emergency | | Pruritis | | Adverse effect of unspecified drugs, medicaments and biologic | | Pruritus, unspecified | | Urticaria, unspecified | | | |Nov 16, 2019 [facility] Emergency | | Arm Injury | | Superficial foreign body of left upper arm, initial encounter | | Contact with needle (sewing), initial encounter | | Encounter for immunization | | | |Nov 15, 2019 [facility]. [place] Emergency | | FB STUCK IN ARM | | Other psychoactive substance use, unspecified, uncomplicated | | Other injury of unspecified body region, initial encounter | | | | | | | |Recent Inpatient Visit Summary | |No recorded inpatient visits. | | | |Care Team | |Provider Specialty Phone Fax Service Dates | |Giancarlo Quarles -, [facility] Community Health Worker Nov 16, 2019 - C cony | | | |Real Time Content Portal | |This patient has registered at the [facility] Emergency Departmen t | |For more information visit: [email or web address] | |PLEASE NOTE: | | 1. Any care recommendations and other clinical information are provided as guidelines or for historical purposes only, and providers should exercise their own clinical judgment whe n providing care. | | 2. You may only use this information for purposes of treatment, payment or health care o perations activities, and subject to the limitations of applicable Real Time Content Policies. | | 3. You should consult directly with the organization that provided a care guideline or o ther clinical history with any questions about additional information or accuracy or complet eness of information provided. | | | |? 2020 [employer] - [email or web address] | + + + + + + + | Performing | Address | City/State/Zipcode | Phone Number | | Organization | | | | + + + + + | [facility] | [address] | [place], [place] | [phone] | | [employer] | [address] | [address] | | + + + + + documented in this encounter Visit Diagnoses + + | Diagnosis | + + | Pain associated with wound - Primary | + + documented in this encounter Administered Medications + +--------+---------+------+------+------+ | Medication Order | MAR | Action | Dose | Rate | Site | | | Action | Date | | | | + +--------+---------+------+------+------+ + +---+ | | | | [id number]-[id number]-[id number] | | | (LET) topical gel 3 mL 3 mL, | | | topical, ONCE, 1 dose, 12/11/19 | | | at 2145 | | + +---+ | | | + +---+ documented in this encounter"
--- OUTSIDE RECORDS SUMMARY | ~2020-01-03 | XMS | Encounter Summary ---
Demographics + + + | Address | [address] | | | [place] [address] | + + + | Home Phone | | + + + | Preferred Language | Unknown | + + + | Marital Status | Single | + + + | Yarsani Affiliation | 1013 | + + + | Race | Unknown | + + + | Ethnic Group | Unknown | + + + Author + + + | Author | [facility] | | | and [place] | + + + | Organization | [facility] | | | and [place] [...] Team Providers + +------+ + | Care Granite Polisher Name | Role | Phone | + +------+ + | Katy Sanford MD | PCP | | + +------+ + Encounter Details +--------+ + + + + | Date | Type | Department | Care Team | Description | +--------+ + + + + | 03/14/ | Abstract | [facility] | Katy Sanford MD | | | 2018 | | [facility] | [address] | | | | | [address] | [place] | | | | | [place] | [address] | | | | | [address] | | | | | | [phone] | | | +--------+ + + + [...] +--------+ + + + | EXTERNAL LAB: | Routin | 01/03/2017 | | Results for this | | TRIGLYCERIDES | e | | | procedure are in the | | | | | | results section. | + +--------+ + + + | EXTERNAL LAB: | Routin | 01/03/2017 | | Results for this | | CHOLESTEROL, HDL | e | | | procedure are in the | | | | | | results section. | + +--------+ + + + | EXTERNAL LAB: | Routin | 01/03/2017 | | Results for this | | CHOLESTEROL, TOTAL | e | | | procedure are in the | | | | | | results section. | + +--------+ + + + | EXTERNAL LAB: | Routin | 01/03/2017 | | Results for this | | CHOLESTEROL, LDL | e | | | procedure are in the | | | | | | results section. | + +--------+ + + + | LIPID PANEL | Routin | 01/03/2017 | | Results for this | | | e | | | procedure are in the | | | | | | results section. | + +--------+ + + + | HEMOGLOBIN A1C | Routin | 01/03/2017 | | Results for this | | | e | | | procedure are in the | | | | | | results section. | + +--------+ + + + | EXTERNAL LAB: PAP | Routin | 04/22/2014 | | Results for this | | SMEAR | e | | | procedure are in the | | | | | | results section. | + +--------+ + + + documented in this encounter Results Lipid Panel (01/03/2017) + +-------+ + + + | Component | Value | Ref Range | Performed | Pathologist | | | | | At | Signature | + +-------+ + + + | Chol/HDL | 4.0 | 0.0 - 5.0 | | | | Ratio | | | | | + +-------+ + + + + + | Specimen | + + | Blood | + + Hemoglobin A1C (01/03/2017) + +-------+ + + + | Component | Value | Ref Range | Performed | Pathologist | | | | | At | Signature | + +-------+ + + + | Hemoglobin | 5.4 | 4.5 - 5.9 % | | | | A1c | | | | | + +-------+ + + + + + | Specimen | + + | Blood | + + External Lab: Triglycerides (01/03/2017) + +---------+ + + + | Component | Value | Ref Range | Performed | Pathologist | | | | | At | Signature | + +---------+ + + + | Triglycerid | 194 (A) | 35 - 160 | | | | es, | | | | | | External | | | | | + +---------+ + + + + + | Specimen | + + | Blood | + + External Lab: Cholesterol, HDL (01/03/2017) + +--------+ + + + | Component | Value | Ref Range | Performed | Pathologist | | | | | At | Signature | + +--------+ + + + | HDL | 31 (A) | 40 - 85 mg/dl | | | | Cholesterol | | | | | | , External | | | | | + +--------+ + + + + + | Specimen | + + | Blood | + + External Lab: Cholesterol, Total (01/03/2017) + +-------+ + + + | Component | Value | Ref Range | Performed | Pathologist | | | | | At | Signature | + +-------+ + + + | Cholesterol | 137 | 120 - 200 mg/dl | | | | , Total, | | | | | | External | | | | | + +-------+ + + + + + | Specimen | + + | Blood | + + External Lab: Cholesterol, LDL (01/03/2017) + +-------+ + + + | Component | Value | Ref Range | Performed | Pathologist | | | | | At | Signature | + +-------+ + + + | LDL | 67 | 0 - 99 | | | | Cholesterol | | | | | | , Direct, | | | | | | External | | | | | + +-------+ + + + + + | Specimen | + + | Blood | + + External Lab: PAP Smear (04/22/2014) + + + + + + | [...]
--- OUTSIDE RECORDS SUMMARY | ~2020-01-03 | XMS | Encounter Summary ---
Demographics + + + | Address | [address] | | | [place] [address] | + + + | Home Phone | | + + + | Preferred Language | Unknown | + + + | Marital Status | Single | + + + | Mu-Ism Affiliation | 1013 | + + + | Race | Unknown | + + + | Ethnic Group | Unknown | + + + Author + + + | Author | [facility] | | | and [place] | + + + | Organization | [facility] | | | [...] Team Providers + +------+ + | Care Senior Ui Software Engineer Name | Role | Phone | [...] Description | +--------+--------+ + + + | 10/04/ | Refill | [facility] | Katy Sanford MD | Medication Refill | | 2019 | | [facility] [place] | [address] | | | | | [address] | [place] | | | | | [place], [place] | [address] | | | | | [address] | | | | | | [phone] | | | +--------+--------+ + + + [...]
--- OUTSIDE RECORDS SUMMARY | ~2020-01-03 | XMS | Encounter Summary ---
Demographics + + + | Address | [address] | | | [place] [address] | + + + | Home Phone | | + + + | Preferred Language | Unknown | + + + | Marital Status | Single | + + + | Baptist Affiliation | 1013 | + + + | Race | Unknown | + + + | Ethnic Group | Unknown | + + + Author + + + | Author | [facility] | | | and [place] | + + + | Organization | [facility] [...] Team Providers + +------+ + | Care Photo Technician Name | Role | Phone | + +------+ + PCP | Unavailable | + +------+ + Encounter Details +--------+ + + + + | Date | Type | Department | Care Team | Description | +--------+ + + + + | 06/03/ | Hospital | [facility] | Joe Lauren | [facility] | | 2002 | Encounter | CONVERSION DEP [address] | [place] [phone] | FOLLOW-UP | | | | [place] | (Fax) | | | | | [place] | | | | | | [address] | | | | | | [phone] | | | +--------+ + + + [...] + | Diagnosis | + + | Routine follow-up | + + documented in this encounter"
--- OUTSIDE RECORDS SUMMARY | ~2020-01-03 | XMS | Encounter Summary ---
Demographics + + + | Address | [address] | | | [place] [address] | + + + | Home Phone [...] + + + | Author | [facility] | | | and [place] | + + + | Organization | [facility] | | | and [...] Team Providers + +------+ + | Care Solar Installation Manager Name | Role | Phone | + +------+ + PCP | Unavailable | + +------+ + Encounter Details +--------+ + + + + | Date | Type | Department | Care Team | Description | +--------+ + + + + | 10/03/ | Hospital | [facility] | Joe Lauren | | | 2008 - | Encounter | CONVERSION DEP [address] | [place] [phone] | | | | | [place] | (Fax) | | | 10/09/ | | [place] | | | | 2008 | | [address] | | | | | | [phone] | | | +--------+ + + + [...]
--- OUTSIDE RECORDS SUMMARY | ~2020-01-03 | XMS | Encounter Summary ---
Demographics + + + | Address | [address] | | | [place] [address] | + + + | Home Phone [...] + + + | Author | [facility] | | | and [place] | + + + | Organization | [facility] | | | and [place] [...] Team Providers + +------+ + | Care Statement Clerks Manager Name | Role | Phone | [...] | | [address] [place] | [place] [address] | | | | | [place] [address] | | | | | | [phone] | | | +--------+ + + + [...] + +--------+ + + + | US EXTREMITY | Routin | 11/15/2019 | | Results for this | | NONVASCULAR LIMITED | e | 12:00 AM | | procedure are in the | | LEFT | | PDT | | results section. | + +--------+ + + + documented in this encounter Results US Extremity Nonvascular Limited Left (11/15/2019 12:00 [...]
--- OUTSIDE RECORDS SUMMARY | ~2020-01-03 | XMS | Encounter Summary ---
Demographics + + + | Address | [address] | | | [place] [address] | + + + | Home Phone | | + + + | Preferred Language | Unknown | + + + | Marital Status | Single | + + + | Quaker Affiliation | 1013 | + + + | Race | Unknown | + + + | Ethnic Group | Unknown | + + + Author + + + | Author | [facility] | | | and [place] | + + + | Organization | [facility] | | | and [place] [...] Team Providers + +------+ + | Care Music Video Director Name | Role | Phone | + [...] 2019 | | MED CTR CASE | [phone] | 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
--- OUTSIDE RECORDS SUMMARY | ~2020-01-03 | XMS | Encounter Summary ---
Demographics + + + | Address | [address] | | | [place] [address] | + + + | Home Phone | | + + + | Preferred Language | Unknown | + + + | Marital Status | Single | + + + | Yazidism Affiliation | 1013 | + + + | Race | Unknown | + + + | Ethnic Group | Unknown | + + + Author + + + | Author | [facility] | | | and [place] | + + + | Organization | [facility] | | | and [...] Team Providers + +------+ + | Care Lumber Mover Name | Role | Phone | + +------+ + PCP | Unavailable | + +------+ + Encounter Details +--------+ + + + + | Date | Type | Department | Care Team | Description | +--------+ + + + + | 07/09/ | [facility] | [facility] | Rhoda Valverde | | | 2010 | Encounter | MED CTR EMERGENCY | DO Arsenio Mccurdy | | | | | [place] [address] | [place] | | | | | [place] | [address] | | | | | [address] | | | | | | [phone] | | | +--------+ + + + [...] | + +--------+ + + + | JESSA | Routin | 07/09/2011 | | Results for this | | | e | 4:03 PM | | procedure are in the | | | | PDT | | results section. | + +--------+ + + + | US OB LIMITED 1 OR | | 07/09/2011 | | Results for this | | MORE FETUS | | 3:04 PM | | procedure are in the | | | | PDT | | results section. | + +--------+ + + + documented in this encounter Results Jessa (07/09/2011 4:03 PM PDT) + + + + + + | Component | Value | Ref Range | Performed | Pathologist | | | | | At | Signature | + + + + + + | Gram Stain | RARE WBC/HPFFEW | | [facility] | | | | EPITHELIAL | | [facility] | | | | CELLS/HPFMODERATE GRAM | | MEDICAL | | | | POS BACILLINO GRAM | | CENTER - | | | | NEGATIVE DIPLOCOCCI SEEN | | LABORATORY | | + + + + + + + + | Specimen | + + | | + + + + + + + | Performing | Address | City/State/Zipcode | Phone Number | | Organization | | | | + + + + + | [facility] | [address] | [place] | [phone] | | [facility] | | [address] | | | - LABORATORY | | | | + + + + + | [facility] | [address] | [place], [place] | | | [facility] | | [address], [facility] | | | - LABORATORY | | | | + + + + + US OB Limited 1 or More Fetus (07/09/2011 3:04 PM PDT) + + | Specimen | + + | | + + + + + | Narrative | Performed At | + + + | [facility] Diagnostic Imaging Department | [facility] | | [address], [facility] | [facility] | | LIMITED OBSTETRICAL ULTRASOUND | DIAG IMG | | CLINICAL HISTORY: 17 WEEKS 5 DAYS BY PRIOR ULTRASOUNDS. LOW | | | PELVIC PAIN. FINDINGS: Limited transabdominal images are | | | reviewed. A report from an obstetric ultrasound perform ed | | | yesterday in [place] is available for comparison. A single, | | | living, intrauterine is present in the transverse lie, head | | | to the maternal right . Normal cardiac activity at 149 beats | | | per minute is documented. Placenta is posterior and gr shraddha 1. | | | Amniotic fluid volume is normal. The cervix is well demonstrated | | | and is long (4.8 cm). In some of the earlier images, an anterior | | | uterine contraction is noted. This is transient and not seen on | | | subsequent images. A detailed anatomic evaluation is not | | | repeated, no abnormalities are co ntained on the limited images | | | provided. No free fluid is present. The ovaries are not | | | definitely identified but the adnexal regions otherwis e appear | | | within the normal range. IMPRESSION: LIMITED STUDY REVEALING | | | A LIVING INTRAUTERINE AND NO PERIGESTATIONAL ABNORMALI TY. | | | Dictated Date/Time: 07/10/2011 10:20 Transcribed Date/Time: | | | 07/10/2011 14:12 Change Control Analyst: <Electronically Signed | | | by Rob Fields MD> 07/11/11 0731 | | + + + + + | Procedure Note | + + | Pardeep Swnason Conversion - 10/11/2013 4:10 PM [facility] | | Diagnostic Imaging Department [address] | | LIMITED OBSTETRICAL ULTRASOUND CLINICAL HISTORY: 17 | | WEEKS 5 DAYS BY PRIOR ULTRASOUNDS. LOW PELVIC PAIN. FINDINGS: Limited transabdominal | | images are reviewed. A report from an obstetric ultrasound performed yesterday in | | [place] is available for comparison. A single, living, intrauterine is | | present in the transverse lie, head to the maternal right. Normal cardiac | | activity at 149 beats per minute is documented. Placenta is posterior and grade 1. | | Amniotic fluid volume is normal. The cervix is well demonstrated and is long (4.8 cm). | | In some of the earlier images, an anterior uterine contraction is noted. This is | | transient and not seen on subsequent images. A detailed anatomic evaluation is | | not repeated, no abnormalities are contained on the limited images provided. No free | | fluid is present. The ovaries are not definitely identified but the adnexal regions | | otherwise appear within the normal range. IMPRESSION: LIMITED STUDY REVEALING A | | LIVING INTRAUTERINE AND NO PERIGESTATIONAL ABNORMALITY. Dictated Date/Time: | | 07/10/2011 10:20Transcribed Date/Time: 07/10/2011 14:12Transcriptionist: | | <Electronically Signed by Rob Fields MD> 07/11/11 0731 | | on subsequent images. A detailed anatomic evaluation is not repeated, no abnormalit ies are co | |ntained on the limited images provided. | | | |No free fluid is present. The ovaries are not definitely identified but the adnexal region s otherwis | |e appear within the normal range. | | | |IMPRESSION: LIMITED STUDY REVEALING A LIVING INTRAUTERINE AND NO PERIGESTATIONAL ABNORMALI | |TY. | | | |Dictated Date/Time: 07/10/2011 10:20 | |Transcribed Date/Time: 07/10/2011 14:12 | |Change Control Analyst: | |<Electronically Signed by Rob Fields MD> 07/11/11 0731 | + + + +---------+ + + | Performing | Address | City/State/Zipcode | Phone Number | | Organization | | | | + +---------+ + + | [place] | | | | | [place] | | | | + +---------+ + + documented in this encounter Visit Diagnoses Not on filedocumented in this encounter"
--- OUTSIDE RECORDS SUMMARY | ~2020-01-03 | XMS | Encounter Summary ---
Demographics + + + | Address | [address] | | | [place] [address] | + + + | Home Phone | | + + + | Preferred Language | Unknown | + + + | Marital Status | Single | + + + | Advent Affiliation | 1013 | + + + | Race | Unknown | + + + | Ethnic Group | Unknown | + + + Author + + + | Author | [facility] | | | and [place] | + + + | Organization | [facility] | | | and [...] Team Providers + +------+ + | Care Dock Grader Name | Role | Phone | + +------+ + PCP | Unavailable | + +------+ + Encounter Details +--------+ + + + + | Date | Type | Department | Care Team | Description | +--------+ + + + + | 04/21/ | Hospital | [facility] | Alexis Pacheco | | | 2011 | Encounter | MED CTR EMERGENCY | MD Nathan [address] | | | | | RIENZI [address] | [address] [place] | | | | | [place] | [place] [address] | | | | | [address] | [phone] | | | | | [phone] | | | +--------+ + + + [...]
--- OUTSIDE RECORDS SUMMARY | ~2020-01-03 | XMS | Encounter Summary ---
Demographics + + + | Address | [address] | | | [place] [address] | + + + | Home Phone [...] + + + | Author | [facility] | | | and [place] | + + + | Organization | [facility] | | | and [place] [...] Team Providers + +------+ + | Care Human Resources Generalist Name | Role | Phone | + +------+ + | Phi Singh CHECKER | PCP | | + +------+ + [...] + + | 02/24/ | Emergency | [facility] | Jim Hurd | Abdominal pain, | | 2017 | | MED CTR EMERGENCY | MD Deuce [address] | unspecified location | | | | CENTER [address] | [address] [place] | (Primary Dx); | | | | [place], [place] | [place] [address] | Nausea and vomiting, | | | | [address] | [phone] | intractability of | | | | [phone] | | vomiting not | | | [...] Everywhere.NAUSEA AND VOMI TINCandi, HOW TO CONTROL (INDONESIAN)ABDOMINAL PAIN, ADULT (INDONESIAN)documented in this encounter Medications at Time of [...] + | [facility] | [address] | [place] | [phone] | | [facility] | | [address] | | | - LABORATORY | | [...] | Top Tube | | | [facility] | | [...] | [address] | [place] | [phone] | | [facility] | | [address] | | | - LABORATORY | | [...] - 1.030 | [facility] | | | [place], | | | [facility] | | [...] Urine | | mg/dL, Negative | [facility] | | | | [...] [address] | [place] | [phone] | | [facility] | | [address] | | | - LABORATORY | | [...] [address] | [place] | [phone] | | [facility] | | [address] | | | - LABORATORY | | [...] + | [facility] | [address] | [place] | [phone] | | [facility] | | [address] | | | - LABORATORY | | [...] mL/min/1.73m2 | [facility] | | | LIBERIAN | RATE,ESTIMATED | | MEDICAL | | | | mL/min/1.93w4Rycc than | | CENTER - | | [...] 4.2 | 3.2 - 5.0 g/dL | [facility] | | | | | | [facility] | | | | | | MEDICAL | | | | | | CENTER - | | | | | | LABORATORY | | + + + + + + | Bilirubin | 0.7Comment: This is an | 0.1 - 1.5 mg/dL | [facility] | | | Total | appended report. These | | [facility] | | | | results have [...] Phosphatase | appended report. These | | [facility] | | | | results have [...] [address] | [place] | [phone] | | [facility] | | [address] | | | - LABORATORY | | [...] | | | | | M/uL | [facility] | | | | [...] | Neutrophils | | K/uL | [facility] | | | | | | MEDICAL | | | | | | CENTER - | | | | | | LABORATORY | | + + + + + + | Absolute | 1.70 | 0.60 - 3.20 | [facility] | | | Lymphocytes | | K/uL | [facility] | [...] [address] | [place] | [phone] | | [facility] | | [address] | | | - LABORATORY | | [...]
--- OUTSIDE RECORDS SUMMARY | ~2020-01-03 | XMS | Encounter Summary ---
Demographics + + + | Address | [address] | | | [place] [address] | + + + | Home Phone | | + + + | Preferred Language | Unknown | + + + | Marital Status | Single | + + + | Restoration Affiliation | 1013 | + + + | Race | Unknown | + + + | Ethnic Group | Unknown | + + + Author + + + | Author | [facility] | | | and [place] | + + + | Organization | [facility] | | | and [place] [...] Team Providers + +------+ + | Care Global Consumer Sector Vice President Name | Role | Phone | + [...] + + | 11/30/ | Emergency | [facility] | Pawel [place], | 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 | | MED CTR EMERGENCY | MD [address] | intoxication (HCC) | | | | CENTER [address] | [place] | (Primary Dx); Panic | | | | [place] | [address] | attack | | | | [address] | | | | | | [phone] | | | +--------+ + + + [...] through Care Everywhere.Methamphetamine Abuse and Addiction, Understanding (Welsh)Panic Attack (Welsh)documented in this encoun ter Medications at Time [...] | | n - | | | 03// | | | 2020 | | | [...] | | | ON?03/ | | | 202 | | | 0 | | | 04:05? | | | STROE, | | | | | | NATALY | | | | | | J?MRN: | | | | | | [id number] | | | [id number] | | | riteri | | | [...] | | | or | | | political aide | | | Dec | | | [...] | | | [facility] | | | [place] | | | | | | MEDICA [...] | | | Level | | | [facility] [place] | | | | | | MEDICAL | | | | | | CENTER - | | | | | | LABORATORY | | + +-------+ + + + + + | Specimen | + + | Blood | + + + + + + + | Performing | Address | City/State/[facility] Cent[facility] | Phone Number | | Organization | | | | + + + + + | [facility] | [address] | [place] | [phone] | | [facility] | | [address] | | | - LABORATORY | | [...] [address] | [place] | [phone] | | [facility] | | [address] | | | - LABORATORY | | [...] + | [facility] | [address] | [place] | [phone] | | [facility] | | [address] | | | - LABORATORY | | [...] | | | | mmol/L | [facility] [place] | | | | [...] | | | | mg/dL | [facility] | | | | | | MEDICAL | | | | | | CENTER - | | | | | | LABORATORY | | + + + + + + | eGFR if not | >60Comment: GLOMERULAR | >=60 | [facility] | | | | FILTRATION | mL/min/1.73m2 | [facility] | | | EMIRATI | RATE,ESTIMATED | | MEDICAL | | | | mL/min/1.02b9Zbkb than | | CENTER - | | [...] | 9.0 | 8.7 - 10.4 | [facility] | | | | | mg/dL | [facility] | | | | | | MEDICAL | | | | | | CENTER - | | | | | | LABORATORY | | + + + + + + | Albumin | 4.3 | 3.2 - 4.8 g/dL | [facility] | | | | [...] | | Protein | | | [facility] | | | | | | MEDICAL [...] | ine Ratio | | | [facility] [place] | [...] + | [facility] | [address] | [place] | [phone] | | [facility] | | [address] | | | - LABORATORY | | [...] Granulocyte | patients, use the | | [facility] | | | s | special [...] | | | | | WBCs | [facility] | | | | | | MEDICAL | | | | | | CENTER - | | | | | | LABORATORY | | + + + + + + | Absolute | 0.00 | 0.00 - 0.01 | [facility] | | | nRBC | | K/uL | [facility] | [...] ranges: Trim. Absolute (K/uL) Percentage (%) | [place] | | 1st 0.003-0.091 K/uL 0.0-0.9% 2nd 0.007-0.247 K/uL | [facility] | | 0.1-2.0% 3rd 0.018-0.456 K/uL 0.1-2.0% | - LABORATORY | + + + + + + + + | Performing | Address | City/State/Zipcode | Phone Number | | Organization | | | | + + + + + | [facility] | [address] | [place] | [phone] | | [facility] | | [address] | | | - LABORATORY | | [...] [address] | [place] | [phone] | | [facility] | | [address] | | | - LABORATORY | | [...] | | | | MEI REDMOND MD ([id number]) | | | | | | on [...]
--- OUTSIDE RECORDS SUMMARY | ~2020-01-03 | XMS | Encounter Summary ---
Demographics + + + | Address | [address] | | | [place] [address] | + + + | Home Phone [...] + | Author | [facility] | | | and [place] | + + + | Organization | [facility] | | | and [place] [...] Team Providers + +------+ + | Care Gasoline Locomotive Crane Operator Name | Role | Phone | + +------+ + PCP | Unavailable | + +------+ + Encounter Details +--------+ + + + + | Date | Type | Department | Care Team | Description | +--------+ + + + + | 10/03/ | Hospital | [facility] | [place] | | | 2008 - | Encounter | CONVERSION DEP [address] | [place] [phone] | | | | | [place] | (Fax) | | | 10/09/ | | [place] | | | | 2008 | | [address] | | | | | | [phone] | | | +--------+ + + + [...]
--- OUTSIDE RECORDS SUMMARY | ~2020-01-03 | XMS | Encounter Summary ---
Demographics + + + | Address | [address] | | | [place] [address] | + + + | Home Phone | | + + + | Preferred Language | Unknown | + + + | Marital Status | Single | + + + | Yarsanism Affiliation | 1013 | + + + | Race | Unknown | + + + | Ethnic Group | Unknown | + + + Author + + + | Author | [facility] | | | and [place] | + + + | Organization | [facility] | | | and [place] [...] Team Providers + +------+ + | Care Tailer In Name | Role | Phone | + +------+ + | Katy Sanford MD | PCP | | + +------+ + Reason for Visit + + + | Reason | Comments | + + + | Headache (Adult - | | | New Onset Or New | | | Symptoms) | | + + + Encounter Details +--------+ + + + + | Date | Type | Department | Care Team | Description | +--------+ + + + + | 01/08/ | Emergency | [facility] | Lorena Oakley | Nonintractable | | 2019 | | MED CTR EMERGENCY | MD Niurka [address] | episodic headache, | | | | CENTER [address] | [address] [place], | unspecified headache | | | | [place] | [place] [address] | type (Primary Dx) | | | | [address] | [phone] | | | | | [phone] | | | +--------+ + + + [...] + + + | Blood Pressure | 106/69 | 01/08/2019 1:53 PM | | | | | PDT | | + + + + + | Pulse | 86 | 01/08/2019 1:53 PM | | | | | PDT | | + + + + + | Temperature | 36.4 C (97.6 F) | 01/08/2019 1:53 PM | | | | | PDT | | + + + + + | Respiratory Rate | 14 | 01/08/2019 1:53 PM | | | | | PDT | | + + + + + | Oxygen Saturation | 100% | 01/08/2019 1:53 PM | | | | | PDT | | + + + + + | Inhaled Oxygen | - | - | | | Concentration | | | | + + + + + | Weight | 55.8 kg (123 lb) | 01/08/2019 1:53 PM | | | | | PDT | | + + + + + | Height | 152.4 cm (5') | 01/08/2019 1:53 PM | | | | | PDT | | + + + + + | Body Mass Index | 24.02 | 01/08/2019 1:53 PM | | | | | PDT | | + + + + + documented in this encounter Discharge Instructions Instructions Lorena Oakley MD - 01/08/2019Please return to the emergency departm ent for further treatment of your headache. I am so sorry about your fall in the waiting emir m, and we are happy to evaluate you and further treat your pain and headache. Please follow up with your primary care physician in the next few days to ensure that your symptoms are improving appropriately. AttachmentsThe following attachments cannot be sent through Care Everywhere.Headache, Unspe cified (Gambian)documented in this encounter Medications at Time of [...] + | Diagnosis | + + | Nonintractable episodic headache, unspecified headache type - Primary | + + documented in this encounter"
--- OUTSIDE RECORDS SUMMARY | ~2020-01-03 | XMS | Encounter Summary ---
Demographics + + + | Address | [address] | | | [place] [address] | + + + | Home Phone | | + + + | Preferred Language | Unknown | + + + | Marital Status | Single | + + + | Mandaeism Affiliation | 1013 | + + + | Race | Unknown | + + + | Ethnic Group | Unknown | + + + Author + + + | Author | [facility] | | | and [place] | + + + | Organization | [facility] | [...] Team Providers + +------+ + | Care Engraver Machine Name | Role | Phone | + [...] + + | 11/18/ | Telephone | [facility] | Harshad Shaikh MD | Referral | | 2020 | | GENERAL SURGERY [address] | [address] | | | | | [address] | [address] [place], [place] | | | | | [place] | [address] | | | | | [address] | | | | | | [phone] | | | +--------+ + + + [...]
--- OUTSIDE RECORDS SUMMARY | ~2020-01-03 | XMS | Encounter Summary ---
Demographics + + + | Address | [address] | | | [place] [address] | + + + | Home Phone [...] + | Organization | [facility] | | | and [...] Providers + +------+ + | Care Mortgage Accounting Clerk Name | Role | Phone | + +------+ + PCP | Unavailable | + +------+ + Encounter Details +--------+ + + + + | Date | Type | Department | Care Team | Description | +--------+ + + + + | 05/22/ | Hospital | [facility] | [place] | | | 2002 | Encounter | [facility] | [place] [phone] | | | | | AND DELIVERY [address] | (Fax) | | | | | [place] | | | | | | [place] | | | | | | [address] | | | | | | [phone] | | | +--------+ + + + [...]
--- OUTSIDE RECORDS SUMMARY | ~2020-01-03 | XMS | Encounter Summary ---
Demographics + + + | Address | [address] | | | [place] [address] | + + + | Home Phone | | + + + | Preferred Language | Unknown | + + + | Marital Status | Single | + + + | Sikhism Affiliation | 1013 | + + + | Race | Unknown | + + + | Ethnic Group | Unknown | + + + Author + + + | Author | [facility] | | | and [place] | + + + | Organization | [facility] | | | and [place] [...] Team Providers + +------+ + | Care Residential Manager Name | Role | Phone | [...] EMERGENCY | MD Deuce [address] | ([facility]) (Primary Dx) | | | | CENTER [address] | [address] [place] | | | | | [place], [place] | [place] [address] | | | | | [address] | [phone] | | | | | [phone] | | | | | | | Wally Hernandez MD | | | | | | [address] | | | | | | [place], [place] | | | | | | [address] | | | | | | | [...] sent through Care Everywhere.Getting Help, Emeli ddiction ([place])documented in this encounter Medications at Time of [...] [address] | [place] | [phone] | | [facility] | | [address] | | | - LABORATORY | | [...] | | [employer] | | | MARIE | | | [...] + | [facility] | [address] | [place] | [phone] | | [facility] | | [address] | | | - LABORATORY | | [...] + | [facility] | [address] | [place], [place] | [phone] | | [facility] | | [address] | | | - LABORATORY | | [...] [address] | [place] | [phone] | | [facility] | | [address] | | | - LABORATORY | | [...] + | [facility] | [address] | [place] | [phone] | | [facility] | | [address] | | | - LABORATORY | | [...] | [address] | [place], [place] | [phone] | | [facility] | | [address] | | | - LABORATORY | | [...] | | | | | | [facility] | | [...] mL/min/1.73m2 | [facility] | | | NEPALESE | RATE,ESTIMATED | | MEDICAL | | | | mL/min/1.41q6Helc than | | CENTER - | | [...] [address] | [place] | [phone] | | [facility] | | [address] | | | - LABORATORY | | [...] LUCIANAE | | | | | | ST. [...] Trim. Absolute (K/uL) Percentage (%) | [facility] | | 1st 0.003-0.091 K/uL 0.0-0.9% 2nd 0.007-0.247 K/uL | [facility] | | 0.1-2.0% 3rd 0.018-0.456 K/uL 0.1-2.0% | - LABORATORY | + + + + + + + + | Performing | Address | City/State/Zipcode | Phone Number | | Organization | | | | + + + + + | [facility] | [address] | [place] | [phone] | | [facility] | | [address] | | | - LABORATORY | | [...] | | Screen, | | | [facility] | | | Urine | | [...] [address] | [place] | [phone] | | [facility] | | [address] | | | - LABORATORY | | [...] - 1.030 | [facility] | | | [place], | | | [facility] | | [...] [address] | [place] | [phone] | | [facility] | | [address] | | | - LABORATORY | | [...]
--- OUTSIDE RECORDS SUMMARY | ~2020-01-03 | XMS | Encounter Summary ---
Demographics + + + | Address | [address] | | | [place] [address] | + + + | Home Phone | | + + + | Preferred Language | Unknown | + + + | Marital Status | Single | + + + | Protestant Affiliation | 1013 | + + + | Race | Unknown | + + + | Ethnic Group | Unknown | + + + Author + + + | Author | [facility] | | | and [place] | + + + | Organization | [facility] | | | [...] Team Providers + +------+ + | Care Delivery Room Supervisor Name | Role | Phone | + +------+ + PCP | Unavailable | + +------+ + Encounter Details +--------+ + + + + | Date | Type | Department | Care Team | Description | +--------+ + + + + | 01/07/ | Hospital | [facility] | | | | 2009 - | Encounter | [facility] | | | | | | CENTER [address] | | | | 01/08/ | | [place] | | | | 2009 | | [address] | | | | | | [phone] | | | +--------+ + + + [...]
--- OUTSIDE RECORDS SUMMARY | ~2020-01-03 | XMS | Encounter Summary ---
Demographics + + + | Address | [address] | | | [place] [address] | + + + | Home Phone [...] + | Organization | [facility] | | | and [...] Team Providers + +------+ + | Care Right Of Way Manager Name | Role | Phone | + +------+ + | Mohinder Gage DO | PCP | | + +------+ + Reason for Visit + + + | Reason | Comments | + + + | Medical Problem | | | (Minor) | | + + + Encounter Details +--------+ + + + + | Date | Type | Department | Care Team | Description | +--------+ + + + + | 10/17/ | Emergency | [facility] | Bhupinder Yadav, | Alcoholic | | 2020 | | [facility] | MD [address] | intoxication without | | | | CENTER [address] | [place] | complication (HCC) | | | | [place] | [address] | (Primary Dx) | | | | [address] | | | | | | [phone] | | | +--------+ + + + [...] + + + | Blood Pressure | 108/76 | 10/17/2019 9:43 PM | | | | | PST | | + + + + + | Pulse | 114 | 10/17/2019 9:43 PM | | | | | PST | | + + + + + | Temperature | 36.2 C (97.1 F) | 10/17/2019 8:22 PM | | | | | PST | | + + + + + | Respiratory Rate | 16 | 10/17/2019 8:22 PM | | | | | PST | | + + + + + | Oxygen Saturation | 96% | 10/17/2019 9:43 PM | | | | | PST | | + + + + + | Inhaled Oxygen | - | - | | | Concentration | | | | + + + + + | Weight | 52.2 kg (115 lb) | 10/17/2019 8:22 PM | | | | | PST | | + + + + + | Height | 152.4 cm (5') | 10/17/2019 8:22 PM | | | | | PST | | + + + + + | Body Mass Index | 22.46 | 10/17/2019 8:22 PM | | | | | PST | | + + + + + documented in this encounter Discharge Instructions AttachmentsThe following attachments cannot be sent through Care Everywhere.Alcohol Intoxic ation (Namibian)documented in this encounter Medications at Time of [...] + + + +---------+ + + | ciprofloxacin | Take 1 tablet by | 20 | 0 | 10/07/19 | | | (CIPRO) 500 mg | mouth 2 times daily | tablet | | 20 | 0 | | tablet | for 10 days. | | | | | + + + +---------+ + + | phenazopyridine | Take 1 tablet by | 20 | 0 | 10/07/19 | | | (PYRIDIUM) 200 mg | mouth 3 times daily | tablet | | 20 | 0 | | tablet | as needed for Pain | | | | | | | or Urinary Symptoms | | | | | | | for up to 15 days. | | | | | + + + +---------+ + + documented as of this encounter Plan of Treatment Not on filedocumented as of this encounter Visit Diagnoses + + | Diagnosis | + + | Alcoholic intoxication without complication (HCC) - Primary | + + documented in this encounter"
--- OUTSIDE RECORDS SUMMARY | ~2020-01-03 | XMS | Encounter Summary ---
Demographics + + + | Address | [address] | | | [place] [address] | + + + | Home Phone | | + + + | Preferred Language | Unknown | + + + | Marital Status | Single | + + + | Denominational Affiliation | 1013 | + + + | Race | Unknown | + + + | Ethnic Group | Unknown | + + + Author + + + | Author | [facility] | | | and [place] | + + + | Organization | [facility] | | | [...] Team Providers + +------+ + | Care Chip Separator Name | Role | Phone | + +------+ + | Mohinder Gage DO | PCP | | + +------+ + Reason for Visit + + + | Reason | Comments | + + + | Lightheaded | | + + + | Drug / Alcohol | | | Assessment | | + + + Encounter Details +--------+ + + + + | Date | Type | Department | Care Team | Description | +--------+ + + + + | 07/01/ | Emergency | [facility] | Deuce Hollingsworth | Methamphetamine | | 2019 | | [facility] | Alexis Ring MD | dependence, episodic | | | | CENTER [address] | [address] | ([facility]) (Primary Dx); | | | | [place] | [place] | Confusion | | | | [address] | [address] | | | | | [phone] | | | +--------+ + + + [...] + + + | Blood Pressure | 103/68 | 07/01/2019 3:29 PM | | | | | PDT | | + + + + + | Pulse | 108 | 07/01/2019 3:29 PM | | | | | PDT | | + + + + + | Temperature | 36.4 C (97.5 F) | 07/01/2019 9:46 AM | | | | | PDT | | + + + + + | Respiratory Rate | 18 | 07/01/2019 9:46 AM | | | | | PDT | | + + + + + | Oxygen Saturation | 96% | 07/01/2019 3:29 PM | | | | | PDT | | + + + + + | Inhaled Oxygen | - | - | | | Concentration | | | | + + + + + | Weight | 45.4 kg (100 lb) | 07/01/2019 9:46 AM | | | | | PDT | | + + + + + | Height | 152.4 cm (5') | 07/01/2019 9:46 AM | | | | | PDT | | + + + + + | Body Mass Index | 19.53 | 07/01/2019 9:46 AM | | | | | PDT | | + + + + + documented in this encounter Discharge Instructions Instructions Deuce Hollingsworth MD - 07/01/2019Please do not continue to use drug s. You need further help to stop using drugs contact while [facility] [place]. AttachmentsThe following attachments cannot be sent through Care Everywhere.Addiction: Your Treatment Options (Yoruba)documented in this encounter Medications at Time of [...] + | URINALYSIS WITH | STAT | 07/01/2019 | | Results for this | | MICROSCOPIC WITH | | 11:46 AM | | procedure are in the | | CULTURE IF INDICATED | | PDT | | results section. | + +--------+ + + + | HCG, URINE, QUAL | STAT | 07/01/2019 | | Results for this | | | | 11:46 AM | | procedure are in the | | | | PDT | | results section. | + +--------+ + + + | DRUGS OF ABUSE, | STAT | 07/01/2019 | | Results for this | | SCREEN, URINE | | 11:46 AM | | procedure are in the | | | | PDT | | results section. | + +--------+ + + + | EXTRA LAVENDER TOP | STAT | 07/01/2019 | | Results for this | | TUBE | | 10:22 AM | | procedure are in the | | | | PDT | | results section. | + +--------+ + + + | EXTRA BLUE TOP TUBE | STAT | 07/01/2019 | | Results for this | | | | 10:22 AM | | procedure are in the | | | | PDT | | results section. | + +--------+ + + + | TROPONIN I | STAT | 07/01/2019 | | Results for this | | | | 10:22 AM | | procedure are in the | | | | PDT | | results section. | + +--------+ + + + | CBC WITH | STAT | 07/01/2019 | | Results for this | | DIFFERENTIAL | | 10:22 AM | | procedure are in the | | | | PDT | | results section. | + +--------+ + + + | TSH | STAT | 07/01/2019 | | Results for this | | | | 10:22 AM | | procedure are in the | | | | PDT | | results section. | + +--------+ + + + | MAGNESIUM | STAT | 07/01/2019 | | Results for this | | | | 10:22 AM | | procedure are in the | | | | PDT | | results section. | + +--------+ + + + | LIPASE | STAT | 07/01/2019 | | Results for this | | | | 10:22 AM | | procedure are in the | | | | PDT | | results section. | + +--------+ + + + | ALCOHOL | STAT | 07/01/2019 | | Results for this | | | | 10:22 AM | | procedure are in the | | | | PDT | | results section. | + +--------+ + + + | COMPREHENSIVE | STAT | 07/01/2019 | | Results for this | | METABOLIC PANEL | | 10:22 AM | | procedure are in the | | | | PDT | | results section. | + +--------+ + + + | ECG 12 LEAD | STAT | 07/01/2019 | | Results for this | | | | 10:13 AM | | procedure are in the | | | | PDT | | results section. | + +--------+ + + + documented in this encounter Results , Urine, Qual (07/01/2019 11:46 AM PDT) + + + + + + | Component | Value | Ref Range | Performed | Pathologist | | | | | At | Signature | + + + + + + | HCG | Negative | Negative | [facility] | | | Qualitative | | | [facility] | | | , Urine | | [...] + | [facility] | [address] | [place] | [phone] | | [facility] | | [address] | | | - LABORATORY | | | | + + + + + Urinalysis with Microscopic with Culture if Indicated (07/01/2019 11:46 AM PDT) + + + + + [...] + + + + | Specific | 1.017 | 1.001 - 1.030 | [facility] | | | [place], | | | [facility] | | [...] + + + + | Nitrite, | Positive (A) | Negative | [facility] [...] + + + + | Bacteria, | 4+ (A) | Negative /HPF | [facility] | [...] + | [facility] | [address] | [place] | [phone] | | [facility] | | [address] | | | - LABORATORY | | | | + + + + + Drugs of Abuse, Screen, Urine (07/01/2019 11:46 AM PDT) + + + + + + | Component | Value | Ref Range | Performed | Pathologist | | | | | At | Signature | + + + + + + | Amphetamine | Positive (A) | Negative | [facility] | | | Screen, | | | [facility] | | | Urine | | | [...] + | [facility] | [address] | [place] | [phone] | | [facility] | | [address] | | | - LABORATORY | | | | + + + + + Extra Lavender Top Tube (07/01/2019 10:22 AM PDT) + +-------+ + + + | Component | Value | Ref Range | Performed | Pathologist | | | | | At | Signature | + +-------+ + + + | Extra | Done | | [facility] | | | Lavender | | | [facility] | | | Top Tube | | [...] + | [facility] | [address] | [place] | [phone] | | [facility] | | [address] | | | - LABORATORY | | | | + + + + + Extra Blue Top Tube (07/01/2019 10:22 AM PDT) + +-------+ + + + [...] | + + + + + | [facility] | [address] | [place], [place] | [phone] | | [facility] | | [address] | | | - LABORATORY | | | | + + + + + Ethanol (07/01/2019 10:22 AM PDT) + +-------+ + + + [...] + + | [facility] | [address] | [place] | [phone] | | [facility] | | [address] | | | - LABORATORY | | | | + + + + + Troponin I (07/01/2019 10:22 AM PDT) + + + + + + | Component | Value | Ref Range | Performed | Pathologist | | | | | At | Signature | + + + + + + | Troponin I | <0.01Comment: | <0.06 ng/mL | [facility] | | | | Comment:Reference | | [facility] | | | | Ranges: 0.00-0.06 = | | MEDICAL | | | | NORMAL >0.06 = | | CENTER - | | | | SUSPICIOUS FOR | | LABORATORY | | | | MYOCARDIAL DAMAGE NOTE: | | | | | | Values greater than | | | | | | 0.78 ng/mL have been | | | | | | shown to be strongly | | | | | | associated with acute | | | | | | myocardial infarction. | | | | | | The [employer] | | | | | | Cardiology (ACC) | | | | | | recommends a decision | | | | | | limit of 0.06 ng/mL for | | | | | | this assay. Results | | | | | | greater than 0.06 can | | | | | | reflect a pre-infarct | | | | | | acute coronary syndrome, | | | | | | but can also reflect | | | | | | myocardial necrosis or | | | | | | injury that is not due | | | | | | to coronary artery | | | | | | disease. Some of these | | | | | | causes are sepsis, | | | | | | hypocolemia, atrial | | | | | | fibrillation, heart | | | | | | failure, pulmonary | | | | | | embolism, myocarditis, | | | | | | myocardial contusion, | | | | | | and renal failure. The | | | | | | diagnosis of myocardial | | | | | | infarction should be | | | | | | based on a combination | | | | | | of the patient's | | | | | | clinical presentation | | | | | | and the clinical | | | | | | laboratory test results | | | | | | (especially serial | | | | | | troponin levels). | | | | + + + + + + + + | Specimen | + + | Blood | + + + + + + + | Performing | Address | City/State/Zipcode | Phone Number | | Organization | | | | + + + + + | [facility] | [address] | [place] | [phone] | | [facility] | | [address] | | | - LABORATORY | | | | + + + + + TSH (07/01/2019 10:22 AM PDT) + +-------+ + + + | Component | Value | Ref Range | Performed | Pathologist | | | | | At | Signature | + +-------+ + + + | TSH | 1.04 | 0.55 - 4.78 | [facility] | | | | | uIU/mL | [facility] | | | | [...] [address] | [place] | [phone] | | [facility] | | [address] | | | - LABORATORY | | | | + + + + + Magnesium (07/01/2019 10:22 AM PDT) + +-------+ + + + | Component | Value | Ref Range | Performed | Pathologist | | | | | At | Signature | + +-------+ + + + | Magnesium | 2.0 | 1.6 - 2.6 mg/dL | [facility] | | | | | [...] [address] | [place] | [phone] | | [facility] | | [address] | | | - LABORATORY | | | | + + + + + Comprehensive Metabolic Panel (07/01/2019 10:22 AM PDT) + + + + + [...] + + + + | Cl | 105 | 98 - 107 mmol/L | [facility] | | | | | [facility] | | | | | | MEDICAL | | | | | | CENTER - | | | | | | LABORATORY | | + + + + + + | CO2 | 27 | 20 - 31 mmol/L | [facility] [...] + + + + | Glucose | 83 | 60 - 106 mg/dL | [facility] | | | | | | [facility] | | | | | | MEDICAL | | | | | | CENTER - | | | | | | LABORATORY | | + + + + + + | BUN | 15 | 9 - 23 mg/dL | [facility] | | | | | | [facility] | | | | | | MEDICAL | | | | | | CENTER - | | | | | | LABORATORY | | + + + + + + | Creatinine | 0.64 | 0.55 - 1.02 | [facility] | | | | | mg/dL | [facility] | | | | | | MEDICAL | | | | | | CENTER - | | | | | | LABORATORY | | + + + + + + | eGFR if not | >60Comment: GLOMERULAR | >=60 | [facility] | | | | FILTRATION | mL/min/1.73m2 | [facility] | | | BERMUDIAN | RATE,ESTIMATED | | MEDICAL | | | | mL/min/1.89x9Kkvp than | | CENTER - | | [...] + + + + | Calcium | 9.5 | 8.7 - 10.4 | [facility] | | | | | mg/dL | [facility] | | | | | | MEDICAL | | | | | | CENTER - | | | | | | LABORATORY | | + + + + + + | Albumin | 4.5 | 3.2 - 4.8 g/dL | [facility] [...] + + + + | Total | 6.5 | 5.7 - 8.2 g/dL | [facility] | | | Protein | | | [facility] | | | | | | MEDICAL | | | | | | CENTER - | | | | | | LABORATORY | | + + + + + + | AST | 20 | 0 - 34 U/L | [facility] [...] + + + + | Globulin | 2.0 (L) | 2.1 - 3.8 g/dL | [facility] [...] + + + + | BUN/Creatin | 23.4 | | [facility] | | | ine [...] + + | Performing | Address | [facility]/State/Zipcode | Phone Number | | Organization | | | | + + + + + | [facility] | [address] | [place] | [phone] | | [facility] | | [address] | | | - LABORATORY | | | | + + + + + Lipase (07/01/2019 10:22 AM PDT) + + + + + + | Component | Value | Ref Range | Performed | Pathologist | | | | | At | Signature | + + + + + + | Lipase | 46Comment: New method in | 12 - 53 U/L | [facility] | | | | use as of October 31 | | [facility] | | | | [facility]. Check reference | | MEDICAL | | | | range for changes.Some | | CENTER - | | | | analytes show | | LABORATORY | | | | significant variation | | | | | | from the previous | | | | | | method.It may be | | | | | | necessary to set a new | | | | | | baseline for this | | | | | | analyte. | | | | + + + + + + + + | Specimen | + + | Blood | + + + + + + + | Performing | Address | City/State/Zipcode | Phone Number | | Organization | | | | + + + + + | [facility] | [address] | [place] | [phone] | | [facility] | | [address] | | | - LABORATORY | | | | + + + + + CBC with Differential (07/01/2019 10:22 AM PDT) + + + + + + | Component | Value | Ref Range | Performed | Pathologist | | | | | At | Signature | + + + + + + | WBC | 8.7 | 4.0 - 11.0 K/uL | [facility] | | | | | | [facility] | | | | | | MEDICAL | | | | | | CENTER - | | | | | | LABORATORY | | + + + + + + | RBC | 4.23 | 3.70 - 5.20 | [facility] | | | | | M/uL | [facility] | | | | | | MEDICAL | | | | | | CENTER - | | | | | | LABORATORY | | + + + + + + | Hemoglobin | 13.9 | 11.5 - 16.0 | [facility] | | | | | g/dL | [facility] | | | | | | MEDICAL | | | | | | CENTER - | | | | | | LABORATORY | | + + + + + + | Hematocrit | 40.6 | 34.0 - 47.0 % | [facility] | | | | | | [facility] | | | | | | MEDICAL | | | | | | CENTER - | | | | | | LABORATORY | | + + + + + + | MCV | 96.0 | 83.0 - 101.0 fL | [facility] | | | | | | [facility] | | | | | | MEDICAL | | | | | | CENTER - | | | | | | LABORATORY | | + + + + + + | MCH | 32.9 | 28.0 - 35.0 pg | [facility] | | | | | | [facility] | | | | | | MEDICAL | | | | | | CENTER - | | | | | | LABORATORY | | + + + + + + | MCHC | 34.2 | 32.0 - 36.0 | [facility] | | | | | g/dL | [facility] | | | | | | MEDICAL | | | | | | CENTER - | | | | | | LABORATORY | | + + + + + + | RDW-CV | 11.9 | <15.0 % | [facility] | | | | | | [facility] | | | | | | MEDICAL | | | | | | CENTER - | | | | | | LABORATORY | | + + + + + + | RDW-SD | 41.6 | 35.1 - 46.3 fL | [facility] | | | | | | [facility] | | | | | | MEDICAL | | | | | | CENTER - | | | | | | LABORATORY | | + + + + + + | Platelet | 393 | 140 - 440 K/uL | [facility] | | | Count | | | [facility] | | | | | | MEDICAL | | | | | | CENTER - | | | | | | LABORATORY | | + + + + + + | MPV | 9.7 | 6.5 - 12.4 fL | [facility] | | | | | | [facility] | | | | | | MEDICAL | | | | | | CENTER - | | | | | | LABORATORY | | + + + + + + | % | 69.2 | 45.0 - 82.0 % | [facility] | | | Neutrophils | | | [facility] | | | | | | MEDICAL | | | | | | CENTER - | | | | | | LABORATORY | | + + + + + + | % | 24.9 | 20.0 - 45.0 % | [facility] | | | Lymphocytes | | | [facility] | | | | | | MEDICAL | | | | | | CENTER - | | | | | | LABORATORY | | + + + + + + | % Monocytes | 4.4 | 4.0 - 12.0 % | [facility] | | | | | | [facility] | | | | | | MEDICAL | | | | | | CENTER - | | | | | | LABORATORY | | + + + + + + | % | 0.9 | 0.0 - 5.0 % | [facility] [...] + + + | % Immature | 0.1Comment: For | 0.0 - 0.4 % | [facility] | | | Granulocyte | patients, use the | | [facility] | | | s | special reference ranges | | MEDICAL | | | | listed below. | | CENTER - | | | | | | LABORATORY | | + + + + + + | Absolute | 6.02 | 1.80 - 8.50 | [facility] | | | Neutrophils | | K/uL | [facility] | | | | | | MEDICAL | | | | | | CENTER - | | | | | | LABORATORY | | + + + + + + | Absolute | 2.16 | 0.60 - 3.20 | [facility] | | | Lymphocytes | | K/uL | [facility] | | | | | | MEDICAL | | | | | | CENTER - | | | | | | LABORATORY | | + + + + + + | Absolute | 0.38 | 0.00 - 1.00 | [facility] | | | Monocytes | | K/uL | [facility] | | | | | | MEDICAL | | | | | | CENTER - | | | | | | LABORATORY | | + + + + + + | Absolute | 0.08 | 0.00 - 0.40 | [facility] | | | Eosinophils | | K/uL | [facility] | | | | | | MEDICAL | | | | | | CENTER - | | | | | | LABORATORY | | + + + + + + | Absolute | 0.04 | 0.00 - 0.10 | [facility] | | | Basophils | | K/uL | [facility] | | | | | | MEDICAL | | | | | | CENTER - | | | | | | LABORATORY | | + + + + + + | Absolute | 0.01Comment: For | 0.00 - 0.03 | [facility] [...] ranges: Trim. Absolute (K/uL) Percentage (%) | [facility] | | 1st 0.003-0.091 K/uL 0.0-0.9% 2nd 0.007-0.247 K/uL | [facility] | | 0.1-2.0% 3rd 0.018-0.456 K/uL 0.1-2.0% | - LABORATORY | + + + + + + + + | Performing | Address | City/State/Zipcode | Phone Number | | Organization | | | | + + + + + | [facility] | [address] | [place], [place] | [phone] | | [facility] | | [address] | | | - LABORATORY | | | | + + + + + ECG 12 lead (07/01/2019 10:13 AM PDT) + + + + + + | Component | Value | Ref Range | Performed | Pathologist | | | | | At | Signature | + + + + + + | VENTRICULAR | 114 | BPM | [facility] | | | RATE EKG | | | | | + + + + + + | ATRIAL RATE | 114 | BPM | [facility] | | + + + + + + | P-R | 152 | ms | [facility] | | | INTERVAL | | | | | + + + + + + | QRS | 80 | ms | [facility] | | | DURATION | | | | | + + + + + + | Q-T | 328 | ms | [facility] | | | INTERVAL | | | | | + + + + + + | Q-T | 452 | ms | [facility] | | | INTERVAL | | | | | | (CORRECTED) | | | | | + + + + + + | P WAVE AXIS | 75 | degrees | [facility] | | + + + + + + | QRS AXIS | 82 | degrees | [facility] | | + + + + + + | T AXIS | 41 | degrees | [facility] | | + + + + + + | INTERPRETAT | Sinus tachycardiaMinimal | | [facility] | | | ION TEXT | voltage criteria for | | | | | | LVH, may be normal | | | | | | variantWhen compared | | | | | | with ECG of 29-JUL-2015 | | | | | | 23:08,premature | | | | | | ventricular complexes | | | | | | are no longer | | | | | | presentConfirmed by | | | | | | MEI REDMOND MD ([id number]) | | | | | | on 07/02/2019 6:59:44 AM | | | | | | | [...] | Diagnosis | + + | Methamphetamine dependence, episodic (HCC) - Primary | + + | Confusion Unspecified psychosis | + + documented in this encounter Administered Medications + +--------+ +------+------+------+ | Medication Order | MAR | Action | Dose | Rate | Site | | | Action | Date | | | | + +--------+ +------+------+------+ | LORazepam (ATIVAN) injection 1 | Given | 07/01/20 | 1 mg | | | | mg 1 mg, Intravenous, ONCE, Mon | | 19 11:49 | | | | | 07/01/19 at 1055, For 1 dose | | AM PDT | | | | + +--------+ +------+------+------+ +---+---+ | | | +---+---+ + +-------+ +---------+---+---+ | promethazine (PHENERGAN) (IV | Given | 07/01/20 | 12.5 mg | | | | ONLY) injection 12.5 mg 12.5 mg, | | 19 10:39 | | | | | Intravenous, ONCE, 07/01/19 | | AM PDT | | | | | at 1020, For 1 dose, Vesicant. | | | [...] +---+---+ | | | +---+---+ + +---------+ +---+-------+---+ | sodium chloride 0.9% (NS) 1,000 | New Bag | 07/01/20 | | 250 | | | mL with magnesium sulfate 2 g, | | 19 10:44 | | mL/hr | | | adult multivitamin 10 mL, | | AM PDT | | | | | thiamine (VITAMIN B-1) 100 mg, | | | | | | | folic acid 1 mg infusion at 250 | | | | | | | mL/hr, Intravenous, CONTINUOUS, | | | | | | | Starting 07/01/19 at 1010, | | | | | | | For 4 hours | | | | | | + +---------+ +---+-------+---+ +---+---+ | | | +---+---+ documented in this encounter"
--- OUTSIDE RECORDS SUMMARY | ~2020-01-03 | XMS | Encounter Summary ---
Demographics + + + | Address | [address] | | | [place] [address] | + + + | Home Phone [...] + | Organization | [facility] | | | and [...] Team Providers + +------+ + | Care Raking Machine Operator Name | Role | Phone | + +------+ + | Phi Singh NP | PCP | | + +------+ + Reason for Visit + + + | Reason | Comments | + + + | Numbness | proc 2/ tingling/pain in left shoulder/arm/ fingers x 2 months/ | | | much worse past week dannie at night/ can't sleep | + + + | Neck Pain | just had cervical Xray done today ordered by PCP in [place] | + + + Encounter Details +--------+---------+ + + + | Date | Type | Department | Care Team | Description | +--------+---------+ + + + | 09/21/ | Office | [facility] | Micheline, | Thoracic outlet | | 2018 | Visit | [facility] [address] | Bonilla Patricia MD | syndrome associated | | | | [place] | [address] | with cervical rib | | | | [address] | [place] | (Primary Dx) | | | | [phone] | [address] | | | | | | | | +--------+---------+ + + + [...] + + + | Blood Pressure | 102/68 | 09/21/2017 12:46 PM | | | | | PST | | + + + + + | Pulse | 68 | 09/21/2017 12:46 PM | | | | | PST | | + + + + + | Temperature | 37.7 C (99.9 F) | 09/21/2017 12:46 PM | | | | | PST | | + + + + + | Respiratory Rate | 12 | 09/21/2017 12:46 PM | | | | | PST | | + + + + + | Oxygen Saturation | 98% | 09/21/2017 12:46 PM | | | | | PST | | + + + + + | Inhaled Oxygen | - | - | | | Concentration | | | | + + + + + | Weight | 63 kg (139 lb) | 09/21/2017 12:46 PM | | | | | PST | | + + + + + | Height | 152.4 cm (5') | 09/21/2017 12:46 PM | | | | | PST | | + + + + + | Body Mass Index | 27.15 | 09/21/2017 12:46 PM | | | | | PST | | + + + + + documented in this encounter Patient Instructions Patient Instructions Bonilla Tobias MD - 09/21/2017 12:45 PM PST Treatment for Thoracic Outlet Syndrome Thoracic outlet syndrome is a set of symptoms in the shoulder, arm, or hand. It occurs from a narrowing of the thoracic outlet. This is the space between your collarbone and your firs t rib. It can result from injury, disease, or a problem present from . Thoracic outlet syndrome is not common. It can occur in people of any age. Types of treatment Treatments for thoracic outlet syndrome may include: Physical therapy to help strengthen shoulder muscles, improve posture, and enlarge the t horacic outlet space Bgfq-fbw-rzdhgji pain medicine to relieve pain and swelling Loss of excess weight Changes to daily activities that bring on symptoms These treatments relieve symptoms in most people. If you still have severe symptoms after t rying these treatments, your healthcare provider may advise surgery. The type of surgery dep ends on the problems with your thoracic outlet. Surgery relieves symptoms in many people. Possible complications of thoracic outlet syndrome In some cases thoracic outlet syndrome can cause a blood clot to form in a vein in your arm . This blocks the flow of blood and may make your arm very swollen. The clot may also move t o the lungs and cause a pulmonary embolism. Or a clot can move somewhere else in the body. Y ou may need to take blood-thinner medicine to prevent clotting. You may need a procedure to remove the clot using a thin tube (catheter) inserted through a vein. A blood clot may also form in one of the arteries of your arm. This may cause sudden decrea se in blood flow to your arm. The clot may be treated with blood thinners or a catheter inse rted through an artery. In some cases, surgery may be done to remove the clot. Living with thoracic outlet syndrome There are things you can do to help prevent symptoms. Don t put heavy bags over your shou lder. This increases pressure on the thoracic outlet. Also make sure to practice your physic al therapy exercises. This will help keep your shoulder muscles strong. When to call your healthcare provider Call your healthcare provider right away if you have any of these: Arm or hand that is suddenly cool, flatbed driver in color, or swollen Sudden weakness of your hand Symptoms that don t get better with therapy Date Last Reviewed: 04/13/201519991186-2698 [employer]. [address] [place] [address], [place] [address]. All righ ts reserved. This information is not intended as a substitute for professional medical care. Always follow your healthcare professional's instructions. documented in this encounter Progress Notes Bonilla Tobias MD - 09/21/2017 12:45 PM PSTFormatting of this note might be di fferent from the original. Subjective: Chief Complaint: Numbness (proc 2/ tingling/pain in left shoulder/arm/ fingers x 2 months/ much worse past week dannie at night/ can't sleep) and Neck Pain (just had cervical Xray done t phil ordered by PCP in [place]) Nataly is a 37 y.o. female who comes in complaining of 3 months history of left upper extre mity pain numbness and tingling. HPI This 37-year-old female has had a several year history of chronic neck pain treated with ga bapentin 800 mg by mouth 3 times a day but over the last 3 months she has had increasing lef t hand and upper extremity pain and tingling numbness with intermittent redness and swelling of the hand. It has been worse at night and in the a.m. upon awakening. 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 Her right upper extremity is essentially asymptomatic. She does have slight numbness when s he lays on the right side too long but not bothersome. She has no progressive weakness. No recent injuries. She has a PCP in [place] who ordered an cervical x-ray which she did today at [facility] but decided to come here due to difficulties getting into see her regular doc jennifer woody single parent of 3 full-time job and no appointment with him today brackets she has no history of thyroid or overt diabetes. Patient's medications, allergies, past medical, surgical, social and family histories were reviewed and updated as appropriate. ROS see above Objective: BP 102/68 | Pulse 68 | Temp 37.7 C (99.9 F) (Temporal) | Resp 12 | Ht 1.524 m (5') | Wt 63 kg (139 lb) | SpO2 98% | BMI 27.15 kg/m Physical Exam in general this is a 37-year-old female in mild acute distress. Sh cristobal has no abnormalities to inspection of either upper extremity. Neck has full range of elijah on without L' HERM I TTE's Positive Adson's on the left left radial pulse dampens within several seconds of hand eleva tion above 90 of shoulder flexion The neck and shoulder and arm have no focal tenderness to palpation the left hand is not sw ollen red warm cold or discolored. There is no absence of swelling or excessive swelling pr esent. The radial and ulnar nerves are normal with hand below the shoulder level Tinel's is negative at the carpal radial and cubital tunnel's Liam's test is normal for circulation and does not provoke paresthesias sensation is ken l to light touch strength is normal for manual motor testing in both upper extremities. I reviewed the cervical spine series performed earlier today at [facility]. There is minor D degenerative disc disease C4-5 and C5-6. Not mention of the radiology report are cervica l ribs. The left C7 shows an asymmetric quite large cervical rib. Assessment and Plans: 1. 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 I instructed her to increase her satinder apentin to a maximum of 3000 100 mg per daily dose. #15 Vicodin given for acute pain relief . She is instructed to follow-up with her PCP to further review the possibility of TOS and encouraged her to seek physical therapy. She agrees to plan we'll RTC as needed This note was dictated using [employer] voice recognition software. Occasional wrong- word or s ound-alike substitutions may have occurred due to the inherent limitations of Vi[employer] software. Please read the chart carefully and recognize, using context, where these subs titutions have occurred. 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
--- OUTSIDE RECORDS SUMMARY | ~2020-01-03 | XMS | Encounter Summary ---
Demographics + + + | Address | [address] | | | [place] [address] | + + + | Home Phone [...] Organization | [facility] | [...] Team Providers + +------+ + | Care Hull And Deck Remover Name | Role | Phone | + [...] + | 04/05/ | Emergency | [facility] | Manjeet Kruger MD | Contusion of left | | 2017 | | [facility] | [address] | hand, initial | | | | CENTER [address] | [place] | encounter (Primary | | | | [place], [place] | [address] | Dx) | | | | [address] | | | | | | [phone] | | | +--------+ + + + [...] + | Pardeep Swanson Results In - 12/07/2016 9:44 AM PDT CLINICAL [...]
--- OUTSIDE RECORDS SUMMARY | ~2020-01-03 | XMS | Encounter Summary ---
Demographics + + + | Address | [address] | | | [place] [address] | + + + | Home Phone | | + + + | Preferred Language | Unknown | + + + | Marital Status | Single | + + + | Latter-Day Affiliation | 1013 | + + + | Race | Unknown | + + + | Ethnic Group | Unknown | + + + Author + + + | Author | [facility] | | | and [place] | + + + | Organization | [facility] | [...] Team Providers + +------+ + | Care Container Maker Name | Role | Phone | + +------+ + PCP | Unavailable | + +------+ + Reason for Visit + + + | Reason | Comments | + + + | Arm Injury | L, needle broke off in arm yesterday | + + + Encounter Details +--------+ + + + + | Date | Type | Department | Care Team | Description | +--------+ + + + + | 11/15/ | Emergency | [facility] | Osiel Barreto, | Injury due to | | 2019 | | MEDICAL CENTER | MD [address] | non-hypodermic | | | | EMERGENCY CENTER | [place] [address] | needle (Primary Dx); | | | | [address] | [phone] | Metal foreign body | | | | [place], [place] | | in upper extremity, | | | | [address] | | left, initial | | | | [phone] | | encounter; | | | | | | Immunization, | | | | | | tetanus-diphtheria | +--------+ + + + + Social [...] + + + | Blood Pressure | 111/60 | 11/16/2019 3:02 PM | | | | | PDT | | + + + + + | Pulse | 122 | 11/16/2019 3:02 PM | | | | | PDT | | + + + + + | Temperature | 36.6 C (97.8 F) | 11/16/2019 3:02 PM | | | | | PDT | | + + + + + | Respiratory Rate | 17 | 11/16/2019 3:02 PM | | | | | PDT | | + + + + + | Oxygen Saturation | 96% | 11/16/2019 3:02 PM | | | | | PDT | | + + + + + | Inhaled Oxygen | - | - | | | Concentration | | | | + + + + + | Weight | 50.2 kg (110 lb 10.7 | 11/16/2019 12:41 PM | | | | oz) | PDT | | + + + + + | Height | 152.4 cm (5') | 11/16/2019 12:41 PM | | | | | PDT | | + + + + + | Body Mass Index | 21.61 | 11/16/2019 12:41 PM | | | | | PDT | | + + + + + documented in this encounter Discharge Instructions Instructions Osiel Barreto MD - 11/16/2019Have sutures removed in 6 to 8 days For pain control: Take ibuprofen (Motrin/Advil ) 600 mg plus acetaminophen (Tylenol) 1000 m g both together every 6 hours (take both at the same time) Once the pain is improving, then just take the ibuprofen or acetaminophen alone. 600 mg of Ibuprofen/Motrin/Advil is equal to (3 adult ibuprofen tablets) 200 mg each tablet 1000 mg of acetaminophen/Tylenol is equal to (2 extra strength tablets) 500 mg each tablet AttachmentsThe following attachments cannot be sent through Care Everywhere.Foreign Body, S oft Tissue (Not Removed) (Surinamese)documented in this encounter Medications at Time of [...] | | Take 1 tablet by | 20 | 0 | 11/16/19 | | | sulfamethoxazole-tri | mouth 2 times daily | tablet | | 20 | 0 | | methoprim (BACTRIM | for 10 days. | | | | | | DS) 800-160 mg per | | | | | | | tablet | | | | | | + + + +---------+ + + documented as of this encounter Plan of Treatment + +------+--------+ + + | Name | Type | Priori | Associated Diagnoses | Date/Time | | | | ty | | | + +------+--------+ + + | ED INFORMATION | MARGAUX | Routin | | 11/16/2019 12:36 PM | | EXCHANGE | | e | | PDT | + +------+--------+ + + documented as of this encounter Procedures + +--------+ + + + | Procedure Name | Priori | Date/Time | Associated Diagnosis | Comments | | | ty | | | | + +--------+ + + + | FL C ARM | TATIANNA [...] | + +--------+ + + + | FOREIGN BODY REMOVAL | Routin [...] | | | ON?03/ | | | | | | 0 | | | 12:35? | | | STROE, | | | | | | NATALY | | | | | | J?MRN: | | | | | | [id number] | | | [id number] | | | riteri | | | [...] | +---+--------+ documented in this encounter Results JIMMY Rodriguez (11/16/2019 2:17 PM PDT) + + | [...] + | Sky, Rad Results In - 11/16/2019 3:17 PM PDT | | FLUOROSCOPY [...] Elbow Left 2 Vw (11/16/2019 1:37 PM PDT) + + | Specimen | [...] + | Sky, Rad Results In - 11/16/2019 1:42 PM PDT [...] | | | | Signed by: Miguel Antunez Amit | | Sign Date/Time: 11/16/2019 1:39 PM [...] immediate complications | | + + + documented in this encounter Visit Diagnoses + + | Diagnosis | + + | Injury due to non-hypodermic needle - Primary | + + | Metal foreign body in upper extremity, left, initial encounter | + + | Immunization, tetanus-diphtheria Need for prophylactic vaccination with | | tetanus-diphtheria (Td) | + + documented in this encounter Administered Medications + +--------+ +-------+------+------+ | Medication Order | MAR | Action | Dose | Rate | Site | | | Action | Date | | | | + +--------+ +-------+------+------+ | lidocaine 1%-EPINEPHrine | Given | 11/16/19 | 5 mLs | | | | 1:100,000 injection 5 mL 5 mL, | | 20 1:57 | | | | | Infiltration, ONCE, 11/16/19 | | PM PDT | | | | | at 1355, For 1 dose | | | | | | + +--------+ +-------+------+------+ +---+---+ | | | +---+---+ + +-------+ + +---+---+ | sulfamethoxazole-trimethoprim | Given | 11/16/19 | 1 tablet | | | | (BACTRIM DS) 800-160 mg per | | 20 2:33 | | | | | tablet 1 tablet 1 tablet, Oral, | | PM PDT | | | | | ONCE, 11/16/19 at 1325, For 1 | | | | | | | dose, Indications: Foreign Body | | | | | | + +-------+ + +---+---+ +---+---+ | | | +---+---+ + +-------+ +---------+---+ + | ugauoqu-cehyjnyfaf-zqqmwazzu | Given | 11/16/19 | 0.5 mLs | | Deltoid- | | pertussis (ADACEL, Tdap) vaccine | | 20 2:31 | | | Right | | injection 0.5 mL 0.5 mL, | | PM PDT | | | | | Intramuscular, ONCE, 11/16/19 | | | | | | | at 1350, For 1 dose, Keep in | | | | | | | refrigerator. Provide patient | | | | | | | education information., | | | | | | + +-------+ +---------+---+ + +---+---+ | | | +---+---+ documented in this encounter"
--- OUTSIDE RECORDS SUMMARY | ~2020-01-03 | XMS | Encounter Summary ---
Demographics + + + | Address | [address] | | | [place] [address] | + + + | Home Phone [...] + + | Author | [facility] | | | and [place] | + + + | Organization | [facility] | | | and [place] | [...] Team Providers + +------+ + | Care Box Truck Driver Name | Role | Phone | + +------+ + PCP | Unavailable | + +------+ + Encounter Details +--------+ + + + + | Date | Type | Department | Care Team | Description | +--------+ + + + + | 06/22/ | Hospital | [facility] | Provider Not, In | Encounter for | | 2015 | Encounter | [address] | [facility] [place] | supervision of | | | | [place], [place] | Health and Service | normal in | | | | [address] | | second trimester | | | | [phone] | | | +--------+ + + + [...] +--------+ + + + | US OB 14 + WEEKS | Routin | 06/22/2015 | Encounter for | Results for this | | SINGLE OR FIRST | e | 4:05 PM | supervision of | procedure are in the | | GESTATION | | PDT | normal in | results section. | | | | | second trimester | | + +--------+ + + + documented in this encounter Results US OB 14 + Week Singl or First Gestation (06/22/2015 4:05 PM PDT) + + | Specimen | + + | | + + + +--------- ------+ | Narrative | Performe d At | + +--------- ------+ | COMPLETE | [facility] | | OBSTETRIC ULTRASOUND 06/22/2015 4:05 PM (PERFORMED AT [facility] | | | [facility]) CLINICAL HISTORY: Encounter for supervision of normal | | | in secondtrimester, approximately 20 weeks 0 days | | | based on LMP COMPARISON: NONE AVAILABLE FOR THIS GESTATION FINDINGS: A | | | single intrauterine fetus is present, and is in variable lie. | | | Thematernal cervix is closed and measures 6.9 cm. The placenta is | | | posterior,without evidence of placenta previa or subchorionic | | | hemorrhage. Amniotic fluidvolume is subjectively within normal | | | limits. biometric data:BPD of 4.6 cm equals 20 weeks 0 | | | days.Head circumference of 17.8 cm equals 20 weeks 2 days.Abdominal | | | circumference of 14.9 cm equals 20 weeks 1 day.Femur length of 3.2 cm | | | equals 20 weeks 0 days. Average sonographic age is 20 weeks 1 day, | | | which is 1 day greater than thecalculated gestational age based on | | | LMP. anatomic survey: Contents of the posterior fossa and the | | | lateralventricles are unremarkable. A four-chamber heart is | | | present, with a regularrate of 144 BPM. Cardiac ventricular outflow | | | tracts are normal in orientation. A fluid filled stomach and | | | bladder are present. The spine and renalregion are | | | unremarkable. The umbilical cord and its insertion are | | | notoptimally visualized. Two upper and lower extremities are | | | visualized. IMPRESSION -1. SINGLE, LIVING INTRAUTERINE FETUS | | | IN VARIABLE LIE SONOGRAPHIC AGE 20 WEEKS1 DAY, WHICH IS 1 DAY GREATER | | | THAN THE CALCULATED GESTATIONAL AGE BASED ON LMP. 2. SUBOPTIMAL | | | VISUALIZATION OF THE UMBILICAL CORD AND ITS INSERTION. CONSIDER | | | INTERVAL SONOGRAPHIC FOLLOW-UP. 3. OTHERWISE NORMAL ANATOMIC | | | SURVEY. Dictated and Signed by: Peter Allen MD Electronically | | | signed: 06/23/2015 5:56 PM | | | | | |IMPRESSION - | | |1. SINGLE, LIVING INTRAUTERINE FETUS IN VARIABLE LIE SONOGRAPHIC AGE 20 WEEKS | | |1 DAY, WHICH IS 1 DAY GREATER THAN THE CALCULATED GESTATIONAL AGE BASED ON LMP. | | | | | | | | |2. SUBOPTIMAL VISUALIZATION OF THE UMBILICAL CORD AND ITS INSERTION. | | |CONSIDER INTERVAL SONOGRAPHIC FOLLOW-UP. | | | | | |3. OTHERWISE NORMAL ANATOMIC SURVEY. | | | | | |Dictated and Signed by: Peter Allen MD | | | Electronically signed: 06/23/2015 5:56 PM | | | | | + +--------- ------+ + +---------+ + + | Performing | Address | City/State/Zipcode | Phone Number | | Organization | | | | + +---------+ + + | [facility] | | | | + +---------+ + + documented in this encounter Visit Diagnoses + + | Diagnosis | + + | Encounter for supervision of normal in second trimester Supervision of | | other normal | + + documented in this encounter"
--- OUTSIDE RECORDS SUMMARY | ~2020-01-03 | XMS | Encounter Summary ---
Demographics + + + | Address | [address] | | | [place] [address] | + + + | Home Phone [...] | Organization | [facility] | | | and [place] [...] Team Providers + +------+ + | Care Automobile Service Advisor Name | Role | Phone | + +------+ + PCP | Unavailable | + +------+ + Encounter Details +--------+ + + + + | Date | Type | Department | Care Team | Description | +--------+ + + + + | 09/30/ | [facility] | [facility] | Edi Sprague | | | 2010 | Encounter | [facility] | MD [address] [facility] | | | | | [address] | [place] | | | | | [place] | [address] | | | | | [address] | | | | | | [phone] | | | +--------+ + + + [...]
--- OUTSIDE RECORDS SUMMARY | ~2020-01-03 | XMS | Encounter Summary ---
Demographics + + + | Address | [address] | | | [place] [address] | + + + | Home Phone [...] + + + | Organization | [facility] | [...] Team Providers + +------+ + | Care Instrument Tester Name | Role | Phone | + [...] + + | 07/29/ | Hospital | [facility] | Becky York | | | 2015 | Encounter | [facility] | Ngoc Steen DO | | | | | [address] | [address] | | | | | [place], [place] | [place], [place] | | | | | [address] | [address] | | | | | [phone] | | | +--------+ + + + [...] MD | | | | | | ([id number]) on 07/30/2015 | | | | | [...] [address] | [place] | [phone] | | [facility] | | [address] | | | - LABORATORY | | [...] | | | marisel (multiple | | [facility] | | | | morphologies | | [...] | [address] | [place] | [phone] | | [facility] | | [address] | | | - LABORATORY | | [...] - [address].030 | [facility] | | | [place], | | | [facility] | | [...] [address] | [place] | [phone] | | [facility] | | [address] | | | - LABORATORY | | | | + + + + + documented in this encounter Visit Diagnoses Not on filedocumented in this encounter"
--- OUTSIDE RECORDS SUMMARY | ~2020-01-03 | XMS | Encounter Summary ---
Demographics + + + | Address | [address] | | | [place] [address] | + + + | Home Phone | | + + + | Preferred Language | Unknown | + + + | Marital Status | Single | + + + | Taoist Affiliation | 1013 | + + + | Race | Unknown | + + + | Ethnic Group | Unknown | + + + Author + + + | Author | [facility] | | | and [place] | + + + | Organization | [facility] | [...] Providers + +------+ + | Care Business Dean Name | Role | Phone | + [...] | | [address] [place] | [place] [address] | | | | | [place] [address] | | | | | | [phone] | | | +--------+ + + + [...]
--- OUTSIDE RECORDS SUMMARY | ~2020-01-03 | XMS | Encounter Summary ---
Demographics + + + | Address | [address] | | | [place] [address] | + + + | Home Phone | | + + + | Preferred Language | Unknown | + + + | Marital Status | Single | + + + | Jewish Affiliation | 1013 | + + + | Race | Unknown | + + + | Ethnic Group | Unknown | + + + Author + + + | Author | [facility] | | | and [place] | + + + | Organization | [facility] | | | and [...] Team Providers + +------+ + | Care Health Lead Name | Role | Phone | + +------+ + | Mohinder Gage DO | PCP | | + +------+ + Reason for Visit + + + | Reason | Comments | + + + | ED Follow-up | after ED follow up | + + + Encounter Details +--------+ + + + + | Date | Type | Department | Care Team | Description | +--------+ + + + + | 01/01/ | Telephone | [facility] | Leesa Salas | ED Follow-up (after | | 2019 | | [facility] CASE | | ED follow up) | | | | MANAGEMENT [address] | | | | | | [place], | | | | | | [place] [address] | | | | | | [phone] | | | +--------+ + + + [...]
--- OUTSIDE RECORDS SUMMARY | ~2020-01-03 | XMS | Encounter Summary ---
Demographics + + + | Address | [address] | | | [place] [address] | + + + | Home Phone | | + + + | Preferred Language | Unknown | + + + | Marital Status | Single | + + + | Baptist Affiliation | CHR | + + + | Race | White | + + + | Ethnic Group | Not or | + + + Author + + + | Author | [facility] | + + + | Organization | [facility] | + + + | Address | Unknown | + + + | Phone | Unavailable | + + + Support + + +---------+ + | Name | Relationship | Address | Phone | + + +---------+ + | Radha Soria | ECON | Unknown | | + + +---------+ + Care Team Providers + +------+ + | Care Regulatory Manager Name | Role | Phone | [...] + + | 12/10/ | Emergency | [facility] Emergency | [place], | | | 2019 | | Department [address] | MD Naldo [address] | | | | | [address] | [facility] Jaycee Soto | | | | | [facility] | [place], [place] | | | | | [place], [place] | [address] | | | | | [address] | [phone] | | | | | [phone] | | | +--------+ + + + [...] COLLECTIVE?NOTIFICATION?12/11/2019 20:25?NATALY BEDOYA?MRN: | COLLECTIVE | | [id number] Criteria Met 3 Facilities In 60 Days 5 Visits | MEDICAL | | In 12 Months Has Guidelines PDMP Security and Safety No | TECHNOLOGIES | | recent Security Events currently on file ED Care Guidelines from | | | [facility] Last Updated: 12/11/19 10:08 AM Care | | | Recommendation: Receiving mental health services through [facility]. | | | Please contact [facility] for any mental health concerns: Carlo | | | [phone] [place] [phone] Crisis Line [phone] These | | | are guidelines and [...] E.D. Visit Count (12 mo.) Facility Visits [facility] 1 | | | [facility] and [facility] 2 [facility] | | | [place] 3 [facility] 11 Total 17 Note: | | | Visits indicate total known visits. Recent Emergency Department | | | Visit Summary Showing 10 most recent visits out of 18 in the past 12 | | | months Date Facility City State Type Diagnoses or Chief Complaint | | | Dec 11, 2019 [facility] and [facility] [place] Emergency | | | 10,800. Medication request Dec 11, 2019 [facility] and | | | [facility] [place] Emergency 10,800. Infection | | | 10,800. L Arm/Headache 18,400. Personal history of other | | | diseases of the nervous system and 18,400. Cutaneous abscess, | | | unspecified 18,400. Other stimulant abuse, uncomplicated | | | 18,400. Paresthesia of skin Dec 08, 2019 [facility] | | | [facility] Emergency Spasms Other stimulant abuse, | | | uncomplicated Other problems related to lifestyle Apr , | | | 2020 [facility]. [place] Emergency | | | Hallucinations Other stimulant abuse, uncomplicated Apr | | | 2019 [facility]. [place] Emergency Medical | | | Complacations from alc and drug abuse Spasms Other | | | stimulant abuse, uncomplicated Dec 01, 2019 [facility] | | | [facility]. [place] Emergency CP,sob Pain Tachycardia | | | Restlessness and agitation Other stimulant use, unspecified | | | with intoxication, unspecifi Panic disorder [episodic paroxysmal | | | anxiety] Nov 20, 2019 [facility] | | | Emergency needle stuck in arm Foreign Body in Skin | | | Other injury of unspecified body region, initial encounter Mar | | | 2019 [facility] Emergency Pruritis | | | Adverse effect of unspecified drugs, medicaments and biologic | | | Pruritus, unspecified Urticaria, unspecified Nov 16, 2019 | | | [facility] Emergency Arm Injury | | | Superficial foreign body of left upper arm, initial encounter | | | Contact with needle (sewing), initial encounter Encounter for | | | immunization Nov 15, 2019 [facility]. [place] | | | Emergency FB STUCK [...] 16, 2019 - Current | | | [employer] Portal This patient has registered at the [facility] | | | [facility] Emergency Department For more information | | | visit: | | | [email or web address] | | | [email or web address] e PLEASE NOTE: 1. Any care recommendations [...] or completeness of information provided. ? 2020 [employer] | | | DATY. - [email or web address] | | + + + + + [...] on | | fileED Care Guidelines from [employer] [facility] [place] Updated: 12/11/19 10:08 AM Care | | Recommendation:Receiving mental health services through [facility]. Please contact | | [facility] for any mental health concerns:Carlo [phone] | | [phone] Line [phone] are guidelines and the provider should | [...] 0 E.D. Visit Count (12 mo.)Facility Visits [facility] 1 [facility] | | and [facility] [place] 2 [facility] 3 [facility] | | Center 11 Total 17 Note: Visits indicate total known visits. Recent Emergency | | Department Visit SummaryShowing 10 most recent visits out of 18 in the past 12 | | monthsDate Facility City State Type Diagnoses or Chief Complaint Dec 11, 2019 [place] | | [facility] [place] Emergency 10,800. Medication request Dec 8, | | 2019 [facility] [place] Emergency 10,800. Infection | | 10,800. L Arm/Headache 18,400. Personal history of other diseases of the nervous | | system and 18,400. Cutaneous abscess, unspecified 18,400. Other stimulant abuse, | | uncomplicated 18,400. Paresthesia of skin Dec 08, 2019 [facility] | | Emergency Spasms Other stimulant abuse, uncomplicated Other problems related | | to lifestyle Dec 08, 2019 [facility]. [place] Emergency Hallucinations | | Other stimulant abuse, uncomplicated Dec 06, 2019 [facility] | | Emergency Medical Complacations from alc and drug abuse Spasms Other stimulant | | abuse, uncomplicated Dec 01, 2019 [facility]. [place] Emergency | | CP,sob Pain Tachycardia Restlessness and agitation Other stimulant use, | | unspecified with intoxication, unspecifi Panic disorder [episodic paroxysmal anxiety] | | Nov 20, 2019 [facility]. [place] Emergency needle stuck in arm | | Foreign Body in Skin Other injury of unspecified body region, initial encounter Mar | | 2019 [facility] Emergency Pruritis Adverse effect of | | unspecified drugs, medicaments and biologic Pruritus, unspecified Urticaria, | | unspecified Nov 16, 2019 [facility] Emergency Arm Injury | | Superficial [...] Phone Fax Service Dates Giancarlo Quarles -, [facility] | | Worker Nov 16, 2019 - Current Collect[employer] PortalThis patient has | | registered at the [facility] Emergency Department For more | | information visit: | | [email or web address] PLEASE | | NOTE: 1. Any care [...] completeness of information | | provided.? 2020 [employer] - [email or web address] | |[facility] 3 | |[facility] 11 | |Total 17 | |Note: Visits indicate total known visits. | | | |Recent Emergency Department Visit Summary | |Showing 10 most recent visits out of 18 in the past 12 months | |Date Facility City State Type Diagnoses or Chief Complaint | |Dec 11, 2019 [facility] [place] Emergency | | 10,800. Medication request | | | |Dec 11, 2019 [facility] [place] Emergency | | 10,800. Infection | | 10,800. L Arm/Headache | | 18,400. Personal history of other diseases of the nervous system and | | 18,400. Cutaneous abscess, unspecified | | 18,400. Other stimulant abuse, uncomplicated | | 18,400. Paresthesia of skin | | | |Dec 08, 2019 [facility]. [place] Emergency | | Spasms | | Other stimulant abuse, uncomplicated | | Other problems related to lifestyle | | | |Dec 08, 2019 [facility]. [place] Emergency | | Hallucinations | | Other stimulant abuse, uncomplicated | | | |Dec 06, 2019 [facility] [place] | | Medical Complacations from alc and drug abuse | | Spasms | | Other stimulant abuse, uncomplicated | | | |Dec 01, 2019 [facility]. [place] | | CP,sob | | Pain | | Tachycardia | | Restlessness and agitation | | Other stimulant use, unspecified with intoxication, unspecifi | | Panic disorder [episodic paroxysmal anxiety] | | | |Nov 20, 2019 [facility]. [place] Emergency | | needle stuck in arm | | Foreign Body in Skin | | Other injury of unspecified body region, initial encounter | | | |Nov 16, 2019 [facility] Emergency | | Pruritis | | Adverse effect of unspecified drugs, medicaments and biologic | | Pruritus, unspecified | | Urticaria, unspecified | | | |Nov 16, 2019 [facility] Emergency | | Arm Injury | | Superficial foreign body of left upper arm, initial encounter | | Contact with needle (sewing), initial encounter | | Encounter for immunization | | | |Nov 15, 2019 [facility]. [place] Emergency | | FB STUCK IN ARM | | Other psychoactive substance use, unspecified, uncomplicated | | Other injury of unspecified body region, initial encounter | | | | | | | |Recent Inpatient Visit Summary | |No recorded inpatient visits. | | | |Care Team | |Provider Specialty Phone Fax Service Dates | |Giancarlo Quarles -, [facility] Community Health Worker Nov 16, 2019 - C cony | | | |[employer] Portal | |This patient has registered at the [facility] and [facility] Emergency Departmen t | |For more information visit: [email or web address] | |PLEASE NOTE: | | 1. Any care recommendations and other clinical information are provided as guidelines or for historical purposes only, and providers should exercise their own clinical judgment whe n providing care. | | 2. You may only use this information for purposes of treatment, payment or health care o perations activities, and subject to the limitations of applicable [employer] Policies. | | 3. You should consult directly with the organization that provided a care guideline or o ther clinical history with any questions about additional information or accuracy or complet eness of information provided. | | | |? 2020 [employer]. - [email or web address] | + + + + + + + | Performing | Address | City/State/Zipcode | Phone Number | | Organization | | | | + + + + + | [facility] | [address] | [place], [place] | [phone] | | [employer] | [address] | [address] | | + + + + + [...] +--------+---------+------+------+------+ + +---+ | | | | chnxnsgah-ZNPAVBByjyd-erlnddirwj | | | (LET) topical gel 3 mL 3 mL, | | | topical, ONCE, 1 dose, 12/11/19 | | | at 2145 | | + +---+ | | | + +---+ documented in this encounter"
--- OUTSIDE RECORDS SUMMARY | ~2020-01-03 | XMS | Encounter Summary ---
Demographics + + + | Address | [address] | | | [place] [address] | + + + | Home Phone [...] Collaborative & [facility] | | | and [place] [...] Team Providers + +------+ + | Care Assistant Softball Coach Name | Role | Phone | + [...] [place], | | | | | | [place] [address] | | | | | | [phone] | | | +--------+ + + + [...]
--- OUTSIDE RECORDS SUMMARY | ~2020-01-03 | XMS | Encounter Summary ---
Demographics + + + | Address | [address] | | | [place] [address] | + + + | Home Phone | | + + + | Preferred Language | Unknown | + + + | Marital Status | Single | + + + | Tenriism Affiliation | 1013 | + + + | Race | Unknown | + + + | Ethnic Group | Unknown | + + + Author + + + | Author | [facility] | | | and [place] | + + + | Organization | [facility] | | | and [place] [...] Team Providers + +------+ + | Care Veneer Stock Layer Name | Role | Phone | + +------+ + | Isabela Gage DO | PCP | | + +------+ + Reason for Visit + + + | Reason | Comments | + + + | Muscle Pain | | + + + | Shoulder Pain | | + + + Encounter Details +--------+ + + + + | Date | Type | Department | Care Team | Description | +--------+ + + + + | 12/30/ | Emergency | [facility] | Chapito Wilson MD | Polysubstance abuse | | 2019 - | | [facility] EMER[facility]Y | [address] | ([facility]) (Primary Dx) | | | | CENTER [address] | [place], [place] | | | 12/31/ | | [place], [place] | [address] | | | 2019 | | [address] | | | | | | [phone] | | | +--------+ + + + [...] documented in this encounter Discharge Instructions Instructions Chapito Wilson MD - 01/01/2020Follow-up with [facility]. Return for any fevers, chills. Follow-up with your primary care provider. documented in this encounter Medications at Time [...] INFORMATION | MARGAUX | Routin | | 12/31/2019 11:37 PM | | EXCHANGE | | e [...] STROE, | | | | | | [place] | | | | | | J?MRN: | | | | | | [id number] | | | [id number] | | | riteri | | | [...] | | 1 0 | | | [facility] | | | | | | Health [...] | | | St. | | | Marie | | | Medica | | | [...] | | | St. | | | Marie | | | [facility] | | | [...] | | | St. | | | Marie | | | [facility] | | | [...] | | | 2020 | | | [facility] | | | | | | Health [...] | | | 2020 | | | [facility] | | | | | | Health [...] | | | St. | | | Marie | | | [facility] | | | [...] | | | St. | | | Marie | | | [facility].C[facility] | | | [...] | | | St. | | | Marie | | | M.C[facility] | | | [...] | | | St. | | | Marie | | | M.C[facility] | | | [...] | | | St. | | | Marie | | | Medica | | | [...] + | Diagnosis | + + | Polysubstance abuse (HCC) - Primary Other, mixed, or unspecified nondependent drug | | abuse, unspecified | + + documented in this encounter"
--- OUTSIDE RECORDS SUMMARY | ~2020-01-03 | XMS | Encounter Summary ---
Demographics + + + | Address | [address] | | | [place] [address] | + + + | Home Phone [...] Organization | [facility] | | | and [...] Team Providers + +------+ + | Care Retail Advisor Name | Role | Phone | [...] Refill | | 2019 | | [facility] | [address] | | | | | [address] | [place] | | | | | [place], [place] | [address] | | | | | [address] | | | | | | [phone] | | | +--------+--------+ + + + [...]
--- OUTSIDE RECORDS SUMMARY | ~2020-01-03 | XMS | Encounter Summary ---
Demographics + + + | Address | [address] | | | [place] [address] | + + + | Home Phone [...] + + + | Author | [facility] | | | and [place] | + + + | Organization | [facility] | | | and [...] Team Providers + +------+ + | Care Manager Food Beverage Name | Role | Phone | + [...] | | | | | with | [address] | [place] [address] | | | | | cervical rib | Phone: | Phone: | | | | | | [phone] | [phone] | | | | | | Fax: | Fax: | | | | | | [phone] | [phone] | +--------+ + + + + + Encounter Details +--------+---------+ + + + | Date | Type | Department | Care Team | Description | +--------+---------+ + + + | 10/16/ | Office | [facility] [place] | Liv Pang | Thoracic outlet | | 2019 | Visit | [facility] | L, PT [address] | syndrome associated | | | | THERAPY [address] [place] | with cervical rib | | | | Ave [place] | [address] | | | | | [address] | | | | | | [phone] | | | +--------+---------+ + + + [...] Pang, PT - 10/16/2018 10:00 AM PST [facility] [address] [place] [phone] Physical Therapy Daily Treatment Note Date: 10/16/2018 [...] motions - slow with behind coronal plane Midway [place] x 15 swimmer Chin tucks Head stabilization combo with rows -Modalities: MHP to neck at beginning x 10' -Other: Teach sleeping techniques to limit compression of neural system Emphasizing kristy ws and also hand/wrist position. HEP: Access Code: [email or web address] URL: [email or web address] Date: 10/16/2018 Prepared by: Liv Pang Exercises Supine Static Chest Stretch on Foam Roll - 2 minutes - 2x daily Median Nerve Flossing - 15 reps - 3x daily - 7x weekly Foam Roll Alternating Arm Flexion "Swimmer" - 10 reps - 3 sets - 30 sec hold Snow Midway [place] on Foam Roll - 1 min - 2x daily Assessment: Working on L C1-2 helped R rotation which was her bigger complaint that L rotation. Plan: IASTM to neck versus deep tissue manually. Also continue to treat for upper cervical dysfu nction with mobs. 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
--- OUTSIDE RECORDS SUMMARY | ~2020-01-03 | XMS | Encounter Summary ---
Demographics + + + | Address | [address] | | | [place] [address] | + + + | Home Phone | | + + + | Preferred Language | Unknown | + + + | Marital Status | Single | + + + | Catholic Affiliation | 1013 | + + + | Race | Unknown | + + + | Ethnic Group | Unknown | + + + Author + + + | Author | [facility] | | | and [place] | + + + | Organization | [facility] | | | and [place] [...] Team Providers + +------+ + | Care Medical Corps Officer Name | Role | Phone | + [...] + | 04/26/ | Patient | [facility] | Katy Sanford MD | PHST Preventative | | 2019 | Outreach | [facility] | [address] | Screening | | | | [address] | [place] | | | | | [place], [place] | [address] | | | | | [address] | | | | | | [phone] | | | +--------+ + + + [...]
--- OUTSIDE RECORDS SUMMARY | ~2020-01-03 | XMS | Encounter Summary ---
Demographics + + + | Address | [address] | | | [place] [address] | + + + | Home Phone | | + + + | Preferred Language | Unknown | + + + | Marital Status | Single | + + + | Gnosticist Affiliation | 1013 | + + + | Race | Unknown | + + + | Ethnic Group | Unknown | + + + Author + + + | Author | [facility] | | | and [place] | + + + | Organization | [facility] | | | and [...] Team Providers + +------+ + | Care Management Psychologist Name | Role | Phone | + +------+ + | Mohnider Gage DO | PCP | | + [...] 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
--- OUTSIDE RECORDS SUMMARY | ~2020-01-03 | XMS | Encounter Summary ---
Demographics + + + | Address | [address] | | | [place] [address] | + + + | Home Phone | | + + + | Preferred Language | Unknown | + + + | Marital Status | Single | + + + | Mormonism Affiliation | 1013 | + + + | Race | Unknown | + + + | Ethnic Group | Unknown | + + + Author + + + | Author | [facility] | | | and [place] | + + + | Organization | [facility] | | | and [...] Team Providers + +------+ + | Care Sludge Filtration Operator Name | Role | Phone | + +------+ + | Mohinder Gage DO | PCP | | + +------+ + Reason for Referral Evaluate & Treat (Routine) + + + + + + + | Status | Reason | Specialty | Diagnoses / | Referred By | Referred To | | | | | Procedures | Contact | Contact | + + + + + + + | Authorized | Specialty | Surgery / | Diagnoses | Minckler, | Santy, | | | Services | General | Foreign | Jim | MD Vivien | | | Required | Surgery | body in skin | MD Deuce | [address] | | | | | | [address] | [place], | | | | | | [place] | [place] [address] | | | | | | [place], [place] | Phone: | | | | | | [address] | [phone] | | | | | | Phone: | Fax: | | | | | | [phone] | [phone] | | | | | | Fax: | | | | | | | [phone] | | + + + + + + + Reason for Visit + + + | Reason | Comments | + + + | Foreign Body in Skin | | + + + Encounter Details +--------+ + + + + | Date | Type | Department | Care Team | Description | +--------+ + + + + | 11/19/ | Emergency | [facility] | MahamedJim thomas | Foreign body in skin | | 2020 | | [facility] EM[facility] | MD [address] | (Primary Dx) | | | | CENTER [address] | [address] [place] | | | | | [place], [place] | [place] [address] | | | | | [address] | [phone] | | | | | [phone] | | | +--------+ + + + [...] + + + | Blood Pressure | 104/55 | 11/20/2019 2:29 PM | | | | | PDT | | + + + + + | Pulse | 107 | 11/20/2019 3:02 PM | | | | | PDT | | + + + + + | Temperature | 36.6 C (97.9 F) | 11/20/2019 2:29 PM | | | | | PDT | | + + + + + | Respiratory Rate | 16 | 11/20/2019 2:29 PM | | | | | PDT | | + + + + + | Oxygen Saturation | 99% | 11/20/2019 3:02 PM | | | | | PDT | | + + + + + | Inhaled Oxygen | - | - | | | Concentration | | | | + + + + + | Weight | 49 kg (108 lb) | 11/20/2019 2:29 PM | | | | | PDT | | + + + + + | Height | 152.4 cm (5') | 11/20/2019 2:29 PM | | | | | PDT | | + + + + + | Body Mass Index | 21.09 | 11/20/2019 2:29 PM | | | | | PDT | | + + + + + documented in this encounter Discharge Instructions AttachmentsThe following attachments cannot be sent through Care Everywhere.Foreign Body, S oft Tissue (Not Removed) (Vietnamese)documented in this encounter Medications at Time of [...] capsule by | 40 | 0 | 11/16/19 | | | (KEFLEX) 500 mg | mouth 4 times daily | capsule | | 20 | 0 | | capsule | for 10 days. | | | | | + + + +---------+ + + | | Take 1 tablet by | 15 | 0 | 11/20/19 | | | oxyCODONE-acetaminop | mouth every 8 hours | tablet | | 20 | 0 | | hen (PERCOCET) 5-325 | as needed for up to | | | | | | mg per tablet | 5 days. | | | | | [...] INFORMATION | MARGAUX | Routin | | 11/20/2019 2:22 PM | | EXCHANGE | | e | | PDT | + +------+--------+ + + + + +--------+ + + | Name | Type | Priori | Associated Diagnoses | Order Schedule | | | | ty | | | + + +--------+ + + | General Surgery | Outpatient | Routin | Foreign body in | Ordered: 11/20/2019 | | [facility] - | Referral | e | skin | | | [place]/S | | | | | | teinle | | | | | + + +--------+ + + documented as of this encounter Procedures + +--------+ + + + | Procedure Name | Priori | Date/Time | Associated Diagnosis | Comments | | | ty | | | | + +--------+ + + + | ED INFORMATION | Routin | 11/20/2019 [...] STROE, | | | | | | ANTALY | | | | | | J?MRN: | | | | | | [id number] | | | [id number] | | | riteri | | | [...] | | | otify/ | | | [id number] | | | 3d-f7d | | | [...] in this encounter Administered Medications + +--------+ + +------+------+ | Medication Order | MAR | Action | Dose | Rate | Site | | | Action | Date | | | | + +--------+ + +------+------+ | oxyCODONE-acetaminophen | Given | 11/20/19 | 1 tablet | | | | (PERCOCET) 5-325 mg per tablet 1 | | 20 3:01 | | | | | tablet 1 tablet, Oral, ONCE, Wed | | PM PDT | | | | | 11/20/19 at 1455, For 1 dose | | | | | | + +--------+ + +------+------+ +---+---+ | | | +---+---+ documented in this encounter"
--- OUTSIDE RECORDS SUMMARY | ~2020-01-03 | XMS | Encounter Summary ---
Demographics + + + | Address | [address] | | | [place] [address] | + + + | Home Phone [...] [facility] | | | and [...] Team Providers + +------+ + | Care Clinical Mental Health Counselor Name | Role | Phone | + [...] | | | | CENTER [address] | | Dx) | | | | [place], [place] | | | | | | [address] | | | | | | [phone] | | | +--------+ + + + [...]
--- OUTSIDE RECORDS SUMMARY | ~2020-01-03 | XMS | Encounter Summary ---
Demographics + + + | Address | [address] | | | [place] [address] | + + + | Home Phone [...] Organization | [facility] | [...] Team Providers + +------+ + | Care Rn Triage Name | Role | Phone | + [...] EMERGENCY | [address] | ([facility]) (Primary Dx) | | | | CENTER [address] | [place], [place] | | | 12/31/ | | [place], [place] | [address] | | | 2019 | | [address] | | | | | | [phone] | | | +--------+ + + + [...] Instructions Chapito Wilson MD - 01/01/2020Follow-up with [employer]. Return for any fevers, chills. Follow-up with [...] J?MRN: | | | | | | [id number] | | | [id number] | | | riteri | | | [...] | | 1 0 | | | [facility] | | | | | | Health [...] | | | 2020 | | | [facility] | | | | | | Health [...] | | | 2020 | | | [facility] | | | | | | Health [...]
--- OUTSIDE RECORDS SUMMARY | ~2020-01-03 | XMS | Encounter Summary ---
Demographics + + + | Address | [address] | | | [place] [address] | + + + | Home Phone [...] Author + + + | Author | [facility] | | | and [place] | + + + | Organization | [facility] | | | and [place] [...] Team Providers + +------+ + | Care Electrical Engineering Professor Name | Role | Phone | + +------+ + PCP | Unavailable | + +------+ + Encounter Details +--------+ + + + + | Date | Type | Department | Care Team | Description | +--------+ + + + + | 07/10/ | [facility] | [facility] | Pawel Clay, | | | 2009 | Encounter | MED CTR EMERGENCY | [address] | | | | | CENTER [address] | [place] | | | | | [place] | [address] | | | | | [address] | | | | | | [phone] | | | +--------+ + + + [...]
--- OUTSIDE RECORDS SUMMARY | ~2020-01-03 | XMS | Encounter Summary ---
Demographics + + + | Address | [address] | | | [place] [address] | + + + | Home Phone [...] + | Organization | [facility] | | [...] Team Providers + +------+ + | Care Billing Representative Name | Role | Phone | [...] + + | 10/26/ | Hospital | [facility] | Edi Sprague | | | 2016 | Encounter | MED CTR LABOR AND | MD [address] [facility] | | | | | DELIVERY [address] | [place] | | | | | [place], | [id number] | | | | | [place] [address] | | | | | | [phone] | | | +--------+ + + + [...] tomorrow with Dr. Sprague Call physician or creative manager's office for instructions if symptoms worsen.. Discharge [...] swishes, or rolls. Call your physician or creative manager if there have not been 10 kicks in 1.5 hours Call physician or creative manager, return to Labor and Delivery, call 911, or go to the nearest [facility] Room if: increased leakage or fluid, [...] Nicci Pederson RN - 10/26/2015 12:00 PM [id number] PT here with complaints of decreased fe orquidea movement and contractions since 629. She reports being checked last week and was 1 cm, 70%. Her cervix has not changed with today's SVE, still 1 cm & 70%. Pt reports uterine c ontractions, but is talking through them and they palpate mild. [place] is not tracing a uterin e contraction [...]
--- OUTSIDE RECORDS SUMMARY | ~2020-01-03 | XMS | Encounter Summary ---
Demographics + + + | Address | [address] | | | [place] [address] | + + + | Home Phone | | + + + | Preferred Language | Unknown | + + + | Marital Status | Single | + + + | Restorationism Affiliation | 1013 | + + + | Race | Unknown | + + + | Ethnic Group | Unknown | + + + Author + + + | Author | [facility] | | | and [place] | + + + | Organization | [facility] | | | and [place] [...] Team Providers + +------+ + | Care Unit Secy Name | Role | Phone | + [...] + + | 11/18/ | Telephone | [facility] | Harshad Shaikh MD | Referral | | 2020 | | GENERAL SURGERY [address] | [address] | | | | [address] | [address] [place], [place] | | | | | [place], [place] | [address] | | | | | [address] | | | | | | [phone] | | | +--------+ + + + [...]
--- OUTSIDE RECORDS SUMMARY | ~2020-01-03 | XMS | Encounter Summary ---
Demographics + + + | Address | [address] | | | [place] [address] | + + + | Home Phone | | + + + | Preferred Language | Unknown | + + + | Marital Status | Single | + + + | Methodist Affiliation | 1013 | + + + | Race | Unknown | + + + | Ethnic Group | Unknown | + + + Author + + + | Author | [facility] | | | and [place] | + + + | Organization | [facility] [...] Team Providers + +------+ + | Care Independent Agent Music Education Name | Role | Phone | + [...] Description | +--------+--------+ + + + | 04/28/ | Refill | [facility] | Katy Sanford MD | Medication Refill | | 2018 | | MEDIC[facility] [place] | [address] | | | | | [address] | [place] | | | | | [place], [place] | [address] | | | | | [address] | | | | | | [phone] | | | +--------+--------+ + + + [...]
--- OUTSIDE RECORDS SUMMARY | ~2020-01-03 | XMS | Encounter Summary ---
Demographics + + + | Address | [address] | | | [place] [address] | + + + | Home Phone | | + + + | Preferred Language | Unknown | + + + | Marital Status | Single | + + + | Confucianist Affiliation | 1013 | + + + | Race | Unknown | + + + | Ethnic Group | Unknown | + + + Author + + + | Author | [facility] | | | and [place] | + + + | Organization | [facility] | | | and [...] Providers + +------+ + | Care Sales Assoc Name | Role | Phone | + [...] | outlet | [address] | | | | | syndrome | [address] | [place] [place] | | | | | associated | [place] | [place] | | | | | with | [id number] | [place], [place] | | | | | cervical rib | Phone: | [address] | | | | | | [phone] | Phone: | | | | | | Fax: | [phone] | | | | | | [phone] | Fax: | | | | | | | [phone] | +--------+ + + + + + Reason for Visit + + + | Reason | Comments | + + + | Referral | | + + + Encounter Details +--------+ + + + + | Date | Type | Department | Care Team | Description | +--------+ + + + + | 06/08/ | Telephone | [facility] | Katy Sanford MD | Referral | | 2018 | | MEDIC[facility] [place] | [address] | | | | | [address] | [place] | | | | | [place] | [address] | | | | | [address] | | | | | | [phone] | | | +--------+ + + + [...]
--- OUTSIDE RECORDS SUMMARY | ~2020-01-03 | XMS | Encounter Summary ---
Demographics + + + | Address | [address] | | | [place] [address] | + + + | Home Phone [...] + + + | Author | [facility] | | | and [place] | + + + | Organization | [facility] | | | and [place] [...] Team Providers + +------+ + | Care Ward Secretary Name | Role | Phone | + +------+ + | Phi Singh LOSS MITIGATION SPECIALIST | PCP | | + +------+ + [...] + + | 02/24/ | Emergency | [facility] | Jim Hurd | Abdominal pain, | | 2017 | | MED CTR EMERGENCY | MD [address] | unspecified location | | | | CENTER [address] | [address] | (Primary Dx); | | | | [place], [place] | [place] [address] | Nausea and vomiting, | | | | [address] | [phone] | intractability of | | | | [phone] | | vomiting not | | | [...] Everywhere.NAUSEA AND VOMI TINCandi, HOW TO CONTROL (MAORI)ABDOMINAL PAIN, ADULT (MAORI)documented in this encounter Medications at Time of [...] + | [facility] [facility] | [address] | [place] | [phone] | | [facility] | | [address] | | | - LABORATORY | | [...] [address] | [place] | [phone] | | [facility] | | [address] | | | - LABORATORY | | [...] - [address].030 | [facility] | | | [place], | | | [facility] | | [...] [address] | [place] | [phone] | | [facility] | | [address] | | | - LABORATORY | | [...] [address] | [place] | [phone] | | [facility] | | [address] | | | - LABORATORY | | [...] + | [facility] | [address] | [place] | [phone] | | [facility] | | [address] | | | - LABORATORY | | [...] mL/min/1.73m2 | [facility] | | | [facility] | RATE,ESTIMATED | | MEDICAL | | | | mL/min/1.16m2Mfve than | | CENTER - | | [...] [address] | [place] | [phone] | | [facility] | | [address] | | | - LABORATORY | | [...] [address] | [place] | [phone] | | [facility] | | [address] | | | - LABORATORY | | [...]
--- OUTSIDE RECORDS SUMMARY | ~2020-01-03 | XMS | Encounter Summary ---
Demographics + + + | Address | [address] | | | [place] [address] | + + + | Home Phone | | + + + | Preferred Language | Unknown | + + + | Marital Status | Single | + + + | Hoahaoism Affiliation | 1013 | + + + | Race | Unknown | + + + | Ethnic Group | Unknown | + + + Author + + + | Author | [facility] | | | and [place] | + + + | Organization | [facility] | | | and [...] Team Providers + +------+ + | Care Neurology Technician Name | Role | Phone | + +------+ + | Katy Sanford MD | PCP | | + +------+ + Reason for Visit + + + | Reason | Comments | + + + | Initial Assessment | thoracic outlet syndrome | + + + Evaluate & Treat [...] | | | | | with | [address] | [place] [address] | | | | | cervical rib | Phone: | Phone: | | | | | | [phone] | [phone] | | | | | | Fax: | Fax: | | | | | | [phone] | [phone] | +--------+ + + + + + Encounter Details +--------+---------+ + + + | Date | Type | Department | Care Team | Description | +--------+---------+ + + + | 10/11/ | Office | [facility] | Liv Pang | Thoracic outlet | | 2019 | Visit | [facility] | L, 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 | | | | [place] | [address] | (Primary Dx) | | | | [address] | | | | | | [phone] | | | +--------+---------+ + + + [...] encounter Progress Notes Liv Pang, PT - 10/11/2018 10:00 AM PST Physical Therapy Plan of Care Date: 10/15/2018 Patient Name: Nataly Martinez Date of : 1980 Encounter Diagnoses Code Name Primary? 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 Current primar y complaint is of R neck pain and L sided hand pain and parasthesia symptoms. Objective exam reveals impairments with cervical spine, neck muscle, chest muscle and shoul dannielle joint limitations in addition to adverse neural tension causing positional sensation linwood nges in UE L worse than R. Muscle hypertonus is most notable finding. These impairments are causing functional limitations with arm function and sleep , which are restricting this pat ient s ability to participate in get restorative sleep, driving, raising arms overhead. Signs and symptoms are consistent with TOS complicated by recent significant increase in s tress level and anxiety which cause muscle tone to increase further restriction brachial ple xxus function and increasing pain. Complexities contributing to frequency and duration of therapy: longstanding pain levels co mbined with current increased life stressors will require pt to learn new skills of dealing with stress through frequent ROM, self soft tissue work, foam roller work etc. If pt buys i nto this and applies the techniques taught to her she will do quite well as feel her TOS sym ptoms can be managed as long as she doesn't let her pec minor and scalene muscles tighten up . Goals: Patient Reported Outcome Goals Patient Reported Outcome Goals: PSFS Patient Specific Functional Scale Goal 1: Nataly will increase her sleep function by 50% Patient Specific Functional Scale Goal 1 Status: 2 Patient Specific Functional Scale Goal 2: Nataly will take 15 minutes for herself at the en d of the day to focus on relaxing Patient Specific Functional Scale Goal 2 Status: 0 Patient Specific Functional Scale Goal 3: Pt reporting decreased pain and increased enduran ce to prolonged static activites such as driving and holding a L serving tray weight. Patient Specific Functional Scale Goal 3 Status: 0 Treatment Plan/Interventions PT EvaluationPT [id number] - Therapeutic [id number] - Neuromuscular Reeducation9 7530 - Therapeutic Rfgurgeadw62359 - Manual Ibswtiu15054 - Self Care/Home [id number] - Group Therapeutic Pxujfaawnw68559 - Aquatic Therapy/Dlvrfrxem42775 - Electrical Stimulation, Attended Electronically signed by: Liv Pang PT, 10/15/2018 9:05 Patient Name: Nataly Martinez/: 1980/ Liv Kowalski P T - 10/11/2018 10:00 AM PST [facility] [address] [place] [address] Physical Therapy Initial Cervical Spine Assessment Date: 10/11/2018 Patient Information Patient Name: Nataly Martinez Date of : 1980 Age: 38 y.o. No problems updated. Mechanism of injury: No specific cause History of symptoms: Nataly presents to Physical Therapy today for Initial Assessment (thor acic outlet syndrome) The patient explains that she began experiencing neck pain and migraines when she was aroun d 17 years old. Recent Imaging shows that patient has a bilateral cervical rib. 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 She carried her line server tray on with the left arm. 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 Car carrillo he stress in her neck. Static movements cause her the most pain. To alleviate stress she will take hot baths and listen to music. She reports that she has s evere anxiety and will occasionally take Zoloft. Patient reports that their Symptom description: R neck ache pain and L hand pain, P&N and n umbness Symptom duration: days at a time Aggravating factors: holding her arm out to the side or above her head for prolonged time Alleviating factors: Gabapentin and muscle relaxe rs When is pain at it's worst: after static activities When is pain at it's best: when abl e to stay moving and with less stressful times Symptom levels: Best (3/10) Worst (7/10) Av erage (5/10) Red flags: none - denies neck/head trauma coldness or pale hands. 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 Very stressful. Social History Social History Marital status: Single Spouse name: N/A Number of children: N/A Years of education: N/A Social History Main Topics Smoking status: Current Every Day Smoker Packs/day: 0.50 Years: 20.00 Types: Cigarettes Smokeless tobacco: Never Used Alcohol use 0.6 oz/week 1 Cans of beer per week Drug use: No Sexual activity: Not on file Other Topics Concern Not on file Social History Narrative No narrative on file Encounter Diagnoses Code Name Primary? 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 Past Medical History: Diagnosis Date Abrasion of [...] Problems Daughter Asthma Son Learning disability Son Developmental History Allergies Allergen Reactions Ondansetron Anxiety "Extreme anxiety" AKA "Zofran" Bupropion Anxiety and Other (See Comments) Anger AKA "Wellbutrin" Codeine Other (See Comments) No pain relief, "makes me loopy" Tramadol Other (See Comments) No pain relief, "makes me loopy" Prior Treatment: None within the last sixty days Patient s Goals: be active and sleep better OBJECTIVE: Observation/Posture/Alignment: Level shoulders. Shoulder blades symmetrically mildly protra cted. Right hand dominant. Gait: normal Cervical ROM Initial Assessment Progress Note / Discharge Flexion: 75% limited by muscles Extension: 100% Side Bend Left: 100% contralateral stretch Side Bend Right: 100% with ipsilateral pain scalenes Rotation Left: 80 Rotation Right: 90 Initial Assessment Initial Assessment Progress Note / Discharge Progress Note / Discharge Thoracic flexion fair Thoracic extension fair Thoracic rotation fair Shoulder ROM: Elevation - except slight limitation in flexion on the right Left= Right= Internal rotation Reaching to T9 on the right, T8 on the left Strength Testing: Initial Assessment Initial Assessment Progress Note / Discharge Progress Note / Discharge Left Right Left Right Deltoid (C5): 4 4 Biceps (C6): 4+ 4+ Wrist Ext (C6): 4 4 Supination (C6): 4 4 Triceps (C7): 4 4 EPL/EPB (C8): 4 4 Finger ABD (T1): 4 4 Button Sawyer Strength: Nt Nt Deep Neck Flexors: (normal = 40 secs) NT Postural Muscles: hypertonus Segmental Joint Mobility: Limited by muscle tightness Palpation: Sensitive to touch and tightness throughout neck, pecs especially on L and B scalenes Neurovascular: Initial Assessment Initial Assessment Progress Note / Discharge Progress Not e / Discharge Left Right Left Right Sensation: intact intact Myotomes: symmetrical Reflexes: NT NT Capillary Refill: good good Vickers's Reflex: NT NT Special Tests: Initial Assessment Initial Assessment Progress Note / Discharge Progress Not e / Discharge Left Right Left Right Spurlings: - - ULTT: + + Sharp-Marcela: - Cervical Distraction: - Thoracic outlet Positive Negative Outcome Measure: Initial Assessment Progress Note / Discharge NDI: 34 /100% (A score of 0% = No Functional Disability of Cervical Spine) Standardized Tests: Neck Disability Index (NDI) Pain Intensity: 2 - The pain is moderate at the moment Personal Care (Washing, Dressing, etc.): 0 - I can look after myself normally without causi ng extra pain Liftin - I can lift heavy weights without extra pain Readin - I can't read as much as I want because of moderate pain in my neck Headaches: 4 - I have severe headaches which come frequently Concentration: 0 - I can concentrate fully when I want to with no difficulty Work: 1 - I can only do my usual work, but no more Drivin - I can drive my car as long as I want with slight pain in my neck Sleepin - My sleep is moderately disturbed (2-3 hrs sleepless) Recreation: 3 - I am able to engage in a few of my usual recreation activities because of p ain in my neck Neck Disability Index Score: 17 Neck Disability Index Percentage Score (Calculated): 34 Assessment Patient presents to physical therapy with c/o neck pain since she was a teen - recently fo und to have thoracic outlet syndrome with cervical rib. Current primary complaint is of R ne ck pain and L sided hand pain and parasthesia symptoms. Objective exam reveals impairments with cervical spine, neck muscle, chest muscle and shoul dannielle joint limitations in addition to adverse neural tension causing positional sensation linwood nges in UE L worse than R. Muscle hypertonus is most notable finding. These impairments are causing functional limitations with arm function and sleep , which are restricting this pat ient s ability to participate in get restorative sleep, driving, raising arms overhead. Signs and symptoms are consistent with TOS complicated by recent significant increase in s tress level and anxiety which cause muscle tone to increase further restriction brachial ple xxus function and increasing pain. Complexities contributing to frequency and duration of therapy: longstanding pain levels co mbined with current increased life stressors will require pt to learn new skills of dealing with stress through frequent ROM, self soft tissue work, foam roller work etc. If pt buys i nto this and applies the techniques taught to her she will do quite well as feel her TOS sym ptoms can be managed as long as she doesn't let her pec minor and scalene muscles tighten up . Rehabilitation potential: Patient demonstrates good potential to achieve established goals to address the documented impairments by participating in skilled physical therapy services. Goals: Patient Reported Outcome Goals Patient Reported Outcome Goals: PSFS Patient Specific Functional Scale Goal 1: Nataly will increase her sleep function by 50% Patient Specific Functional Scale Goal 1 Status: 2 Patient Specific Functional Scale Goal 2: Nataly will take 15 minutes for herself at the en d of the day to focus on relaxing Patient Specific Functional Scale Goal 2 Status: 0 Patient Specific Functional Scale Goal 3: Pt reporting decreased pain and increased enduran ce to prolonged static activites such as driving and holding a L serving tray weight. Patient Specific Functional Scale Goal 3 Status: 0 Plan Date of Onset: 10/11/2018 Start of Care Date: 10/11/2018 Requested # of Visits: 8 visits 1x/week for 8 wks Certification From: 10/11/2018 Certification To: 12/07/2018 Treatment Plan/Interventions PT EvaluationPT Re-[id number] - Therapeutic Aswahmoe68489 - Neuromuscular Reeducation9 7530 - Therapeutic Frqiihetum41537 - Manual Cqkhdvv83221 - Self Care/Home Gipvsdfhza51126 - Group Therapeutic Rsfjmmdtaa79515 - Aquatic Therapy/Lvwicvygh29915 - Electrical Stimulation, Attended Patient and/or family has indicated understanding of treatment needs and actively participa bethany in the creation of this plan for care. Today's Treatment Start Time: 1011 Stop time: 1100 Duration: 49 minutes Timed Treatment Codes: 0 minutes # of PT Visits: 1 Objective: Education of rehab timeline, focus and expectations. Education of pain modulation with use of ice/MHP, positioning, pacing and movement strategies for self care. Brief treatment including pec release and median L nerve glides " frisbee throws" -HEP of: Encouraged pt to do the same at home as well. Next Visit: - Assess symptoms and see how patient felt after previous visit. Adjust daily t reatment based on current patient symptoms and clinical presentation. Considerations for follow up: -Manual: IASTM to neck is tolerated otherwise deep tissue manually. Pec and scalenes, also treat suboccipital and C2-3 due to CREWS hx. More detailed C7-T1 assessment and possible eduardo tment. -Exercise: foam roller and nerve glides emphasis for treatments - emphasize self care due t o limited insurance avail Exercise/Activity MHP/IASTM or ball Neck AROM Foam roller: pec stretch - major/minor Median nerve glides Shoulder motions - slow with behind coronal plane -Modalities: only as absolutely needed - don't want to spend too much time on passive modal ities with her limited benefit. Pt knows that heat helps her at home already. -Other: Teach sleeping techniques to limit compression of neural system Emphasizing kristy ws and also hand/wrist position. Electronically signed by: Liv Pang PT, 10/15/2018 8:45 Patient Name: Nataly Martinez/: 1980/ documented in thi s encounter Plan of Treatment Not on filedocumented as of this encounter Visit Diagnoses + + | Diagnosis | + + | Thoracic outlet syndrome associated with cervical rib - Primary | + + documented in this encounter
--- OUTSIDE RECORDS SUMMARY | ~2020-01-03 | XMS | Encounter Summary ---
Demographics + + + | Address | [address] | | | [place] [address] | + + + | Home Phone | | + + + | Preferred Language | Unknown | + + + | Marital Status | Single | + + + | Rastafari Affiliation | CHR | + + + [...] Providers + +------+ + | Care Senior Clinical Data Manager Name | Role | Phone | [...]
--- OUTSIDE RECORDS SUMMARY | ~2020-01-03 | XMS | Encounter Summary ---
Demographics + + + | Address | [address] | | | [place] [address] | + + + | Home Phone [...] | Organization | [facility] | | [...] Providers + +------+ + | Care Director Global Intelligence Name | Role | Phone | + [...] + + | 11/30/ | Emergency | [facility] | Pawel Clay, | 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 | | MED CTR EMERGENCY | MD [address] | intoxication (HCC) | | | | CENTER [address] | [place] | (Primary Dx); Panic | | | | [place] | [address] | attack | | | | [address] | | | | | | [phone] | | | +--------+ + + + [...] through Care Everywhere.Methamphetamine Abuse and Addiction, Understanding (Portuguese)Panic Attack (Portuguese)documented in this encoun ter Medications at Time [...] J?MRN: | | | | | | [id number] | | | [id number] | | | riteri | | | [...] | | | or | | | chrome worker | | | Dec | | [...] | | | [place] | | | ZUNI | | | | | | MEDICA [...] + + | Performing | Address | City/State/[facility] | Phone Number | | Organization | | | | + + + + + | [facility] | [address] | [place] | [phone] | | [facility] | | [address] | | | - LABORATORY | | [...] [address] | [place] | [phone] | | [facility] | | [address] | | | - LABORATORY | | [...] + | [facility] | [address] | [place] | [phone] | | [facility] | | [address] | | | - LABORATORY | | [...] mL/min/1.73m2 | [facility] | | | [facility] | RATE,ESTIMATED | | MEDICAL | | | | mL/min/1.37f6Fmfq than | | CENTER - | | [...] [address] | [place] | [phone] | | [facility] | | [address] | | | - LABORATORY | | [...] 0.003-0.091 K/uL 0.0-0.9% 2nd 0.007-0.247 K/uL | [facility] | | 0.1-2.0% 3rd 0.018-0.456 K/uL 0.1-2.0% | - LABORATORY | + + + + + + + + | Performing | Address | City/State/Zipcode | Phone Number | | Organization | | | | + + + + + | [facility] | [address] | [place] | [phone] | | [facility] | | [address] | | | - LABORATORY | | [...] [address] | [place] | [phone] | | [facility] | | [address] | | | - LABORATORY | | [...] | | | | MEI REDMOND MD ([id number]) | | | | | | on [...]
--- OUTSIDE RECORDS SUMMARY | ~2020-01-03 | XMS | Encounter Summary ---
Demographics + + + | Address | [address] | | | [place] [address] | + + + | Home Phone | | + + + | Preferred Language | Unknown | + + + | Marital Status | Single | + + + | Jain Affiliation | 1013 | + + + | Race | Unknown | + + + | Ethnic Group | Unknown | + + + Author + + + | Author | [facility] | | | and [place] | + + + | Organization | [facility] | [...] Team Providers + +------+ + | Care Bucket Hooker Name | Role | Phone | + +------+ + | Katy Sanford MD | PCP | | + +------+ + Reason for Visit + + + | Reason | Comments | + + + | Appointment | | + + + Encounter Details +--------+ + + + + | Date | Type | Department | Care Team | Description | +--------+ + + + + | 10/22/ | Telephone | [facility] [place] | Gill Cantu, | Appointment | | 2019 | | [facility] | Aide | | | | | THERAPY [address] | | | | | [address] [place] | | | | | | [address] | | | | | | [phone] | | | +--------+ + + + [...]
--- OUTSIDE RECORDS SUMMARY | ~2020-01-03 | XMS | Encounter Summary ---
Demographics + + + | Address | [address] | | | [place] [address] | + + + | Home Phone [...] | Organization | [facility] | [...] Team Providers + +------+ + | Care Manufacturing Test Technician Name | Role | Phone | + +------+ + PCP | Unavailable | + +------+ + Encounter Details +--------+ + + + + | Date | Type | Department | Care Team | Description | +--------+ + + + + | 06/03/ | Hospital | [facility] | Joe Lauren | ALFRED POSTPART | | 2002 | Encounter | CONVERSION DEP [address] | [place] [phone] | FOLLOW-UP | | | | LEOLA ROSS | (Fax) | | | | | [place] | | | | | | [address] | | | | | | [phone] | | | +--------+ + + + [...]
--- OUTSIDE RECORDS SUMMARY | ~2020-01-03 | XMS | Encounter Summary ---
Demographics + + + | Address | [address] | | | [place] [address] | + + + | Home Phone [...] Organization | [facility] | | | and [...] Providers + +------+ + | Care Senior Editor Name | Role | Phone | + +------+ + PCP | Unavailable | + +------+ + Encounter Details +--------+ + + + + | Date | Type | Department | Care Team | Description | +--------+ + + + + | 07/09/ | [facility] | [facility] | Rhoda Valverde | | | 2010 | Encounter | MED CTR EMERGENCY | DO Arsenio Mccurdy | | | | | [place] [address] | [place] | | | | | [place] | [address] | | | | | [address] | | | | | | [phone] | | | +--------+ + + + [...] + | [facility] | [address] | [place] | [phone] | | [facility] | | [address] | | | - LABORATORY | | | | + + + + + | [facility] | [address] [facility] [address] | [place], [place] | | | [facility] | | [address], [facility] | | | - LABORATORY | | | | + + + + + US OB Limited 1 or More Fetus (07/09/2011 3:04 PM PDT) + + | Specimen | + + | | + + + + + | Narrative | Performed At | + + + | [facility]. [facility] Diagnostic Imaging Department | [facility] | | [address] [facility] [address] | [facility] | | LIMITED OBSTETRICAL ULTRASOUND | DIAG IMG | | CLINICAL HISTORY: 17 WEEKS 5 DAYS BY PRIOR ULTRASOUNDS. LOW | | | PELVIC PAIN. FINDINGS: Limited transabdominal images are | | | reviewed. A report from an obstetric ultrasound perform ed | | | yesterday in [place] is available for comparison. A single, | [...] Transcribed Date/Time: | | | 07/10/2011 14:12 Systems Development Consultant: <Electronically Signed | | | by Rob Fields MD> 07/11/11 0731 | | + + + + + | Procedure Note | + + | Pardeep Swanson Conversion - 10/11/2013 4:10 PM [facility] | | Diagnostic Imaging Department [address] | | LIMITED OBSTETRICAL ULTRASOUND CLINICAL HISTORY: 17 | | WEEKS 5 DAYS BY PRIOR ULTRASOUNDS. LOW PELVIC PAIN. FINDINGS: Limited transabdominal | | images are reviewed. A report from an obstetric ultrasound performed yesterday in | | [place] is available for comparison. A single, living, [...] 10:20 | |Transcribed Date/Time: 07/10/2011 14:12 | |Systems Development Consultant: | |<Electronically Signed by Rob Fields MD> [...]
--- OUTSIDE RECORDS SUMMARY | ~2020-01-03 | XMS | Encounter Summary ---
Demographics + + + | Address | [address] | | | [place] [address] | + + + | Home Phone [...] + | Organization | [facility] | | | and [...] Team Providers + +------+ + | Care Atm Manager Name | Role | Phone | + +------+ + | Phi Singh NP | PCP | | + +------+ + Encounter Details +--------+ + + + + | Date | Type | Department | Care Team | Description | +--------+ + + + + | 09/21/ | [facility] | [facility] | Phi Singh | Cervical radicular | | 2018 | Encounter | MED CTR XRAY [address] | Deuce, RUBBER GOODS INSPECTOR TESTER [address] | pain | | | | [place] | [address], | | | | | [place] [address] | [address], | | | | | [phone] | [place] [address] | | | | | | [phone] | | | | | | | [...]
--- OUTSIDE RECORDS SUMMARY | ~2020-01-03 | XMS | Encounter Summary ---
Demographics + + + | Address | [address] | | | [place] [address] | + + + | Home Phone | | + + + | Preferred Language | Unknown | + + + | Marital Status | Single | + + + | Quaker Affiliation | 1013 | + + + | Race | Unknown | + + + | Ethnic Group | Unknown | + + + Author + + + | Author | [facility] | | | and [place] | + + + | Organization | [facility] | | | and [...] Team Providers + +------+ + | Care Vp Rheumatology Name | Role | Phone | + [...] + + | 11/14/ | Office | [facility] | [facility], | Thoracic outlet | | 2018 | Visit | CARE [address] | Bonilla Patricia MD | syndrome associated | | | | [place] | [address] | with cervical rib | | | | [address] | [place] | (Primary Dx) | | | | [phone] | [address] | | | | | | | [...] flow through your arm. Date Last Reviewed: 02/02/201719995179-5705 [employer]. [address] [place] [address], [place] [address]. All righ ts reserved. This information is [...] little reluctantly. This note was dictated using [employer] voice recognition software. Occasional wrong- word or [...]
--- OUTSIDE RECORDS SUMMARY | ~2020-01-03 | XMS | Encounter Summary ---
Demographics + + + | Address | [address] | | | [place] [address] | + + + | Home Phone [...] | Organization | [facility] | | [...] Providers + +------+ + | Care Computer Architect Name | Role | Phone | + +------+ + | Katy Sanford MD | PCP | | + +------+ + Reason for Visit + + + | Reason | Comments | + + + | Nasal Congestion | Pertussis Assesment | + + + | Neck Pain | | + + + Encounter Details +--------+---------+ + + + | Date | Type | Department | Care Team | Description | +--------+---------+ + + + | 06/25/ | Office | [facility] | Katy Sanford MD | Allergic rhinitis, | | 2017 | Visit | [facility] [place] | [address] | unspecified | | | | [address] | [place] | seasonality, | | | | [place] | [address] | unspecified trigger; | | | | [address] | | Subacute maxillary | | | | [phone] | | sinusitis | +--------+---------+ + + + Social History [...] + + + | Blood Pressure | 116/62 | 06/25/2018 9:59 AM | | | | | PDT | | + + + + + | Pulse | 88 | 06/25/2018 9:59 AM | | | | | PDT | | + + + + + | Temperature | 36.5 C (97.7 F) | 06/25/2018 9:59 AM | | | | | PDT | | + + + + + | Respiratory Rate | 16 | 06/25/2018 9:59 AM | | | | | PDT | | + + + + + | Oxygen Saturation | 98% | 06/25/2018 9:59 AM | | | | | PDT | | + + + + + | Inhaled Oxygen | - | - | | | Concentration | | | | + + + + + | Weight | 60 kg (132 lb 4.4 | 06/25/2018 9:59 AM | | | | oz) | PDT | | + + + + + | Height | - | - | | + + + + + | Body Mass Index | 25.77 | 03/05/2018 10:24 AM | | | | | PDT | | + + + + + documented in this encounter Patient Instructions Patient Instructions Katy Sanford MD - 06/25/2018 10:38 AM PDTReturn if symptoms worsen or fail to improve. If you have any questions, please call us [phone]. Lab results process: Once we receive the lab results we will contact you with the results one of three ways: A. Normal results/Slight abnormal- We will send you a letter with provider comments/instruc tions. B. Slightly abnormal/adjustment needed- We will call and give your results over the phone i f there is a small adjustment/instruction needed. C. Abnormal results- The front maker will call and schedule a follow up appointment for lab review if results are abnormal and the provider wants to see you in the office to discuss re sults. Prescription Refill Notice: All prescription refill requests [...] cancellation or re-scheduling of your appointme nt. Understanding Sinus Problems You don t often think about your sinuses until there s a problem. One day you realize y ou can t smell dinner cooking. Or you find you often have headaches or problems breathing through your nose. Symptoms of sinus problems Sinus problems can cause uncomfortable symptoms. Your nose may run constantly. You might ornelas ve trouble sleeping at night. You may even lose your sense of smell. Other symptoms can incl ude: Nasal congestion Fullness in ears Green, yellow, or bloody drainage from the nose Trouble tasting food Frequent headaches Facial pain Cough When sinuses are blocked If something blocks the passages in the nose or sinuses, mucus can t drain. Mucus-filled sinuses often become infected. Colds cause the lining of the nose and sinuses to swell and make extra mucus. A buildup of mucus can lead to a more serious infection. Allergies irritate turbinates and other tissues. This causes swelling, which can cause a blockage. Over time, this irritation can also lead to sacs of swollen tissue (polyps). Polypsmay form in both the sinuses and nose. Polyps can grow large enough to clog nasa l passages and block drainage. A crooked (deviated) septum may block nasal passages. This is often the result of an inj ury. Date Last Reviewed: 07/05/201619995584-4752 [employer]. [address] [place] [address], [place] [address]. All righ ts reserved. This information is not intended as a substitute for professional medical care. Always follow your healthcare professional's instructions. documented in this encounter Progress Notes Katy Sanford MD - 06/25/2018 9:45 AM PDT Subjective: Patient ID: Nataly Martinez is a 38 y.o. female. Chief Complaint Patient presents with Nasal Congestion Pertussis Assesment Neck Pain HPI Patient presents in clinic today for pertussis assessment. She is adamant that wants to be tested for Pertussis because her son has it. She reports that her son who is 2 years old was diagnosed on 06/20/2018 with Pertussis at [facility]. She reports that she has had neck pain on the right side, nasal congestion and nasal draina ge, and chills that started about 06/17/2018 so about 1 week now. She denies any fevers and any cough, but reports that she is not the best at keeping track of tempeture. She reports that she has been taking Azithromycin 250 mg for 3 days now (after frantically insisting over the phone to be treated for Pertussis), and reports she started taking this o n 06/22/2018 so she has taken 3 doses so far. Since she has started on the azithromycin she reports that she has noticed her nasal congestion clear up a little. In regards to her neck pain, I reviewed her X Rays and her MRI was not approved by her insu brady, because she needs PT and conservative management be done first. She reports that her mother, and niece also have pertussis. Past Medical History: Diagnosis Date Abrasion of left ankle Allergic rhinitis due to allergen Amenorrhea Anxiety Anxiety with depression Benzodiazepine dependence, continuous ([facility]) Borderline diabetes Cervical radicular pain Cervicalgia Depression Diabetes ([facility]) Diabetes mellitus screening Gastro-esophageal reflux Generalized pain Headache Insect bite, multiple Joint pain Left knee injury Left knee pain Migraine headache PCOS (polycystic ovarian syndrome) Pelvic pain Peripheral neuropathy Post depression RUQ pain Spasm of muscle Substance abuse ([facility]) 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 120 mL 0 Mctnlqoiemgoclu-VZNM-YR (DAYQUIL MULTI-SYMPTOM COLD/FLU PO) Take by mouth. sertraline (ZOLOFT) 100 mg tablet take 1 tablet by mouth daily 90 tablet 0 spironolactone (ALDACTONE) 50 mg tablet Take 1 tablet by mouth Daily. 1 No current facility-administered medications for this visit. Review of Systems Constitutional: Positive for malaise/fatigue. Negative for fever. HENT: Positive for congestion. Negative for ear discharge, ear pain, sinus pain, sore throa t and tinnitus. Eyes: Negative. Negative for blurred vision and pain. Respiratory: Positive for sputum production. Negative for cough and shortness of breath. Cardiovascular: Positive for palpitations. Negative for chest pain and leg swelling. Gastrointestinal: Negative. Negative for [...] and does not have insomnia. Objective: BP 116/62 | Pulse 88 | Temp 36.5 C (97.7 F) (Temporal) | Resp 16 | Wt 60 kg (132 lb 4.4 oz) | LMP 06/19/2018 | SpO2 98% | ? No | BMI 25.77 kg/m Physical Exam General Appearance: Alert, cooperative, no distress, appears stated age Head: Normocephalic, without obvious abnormality, atraumatic Eyes: PERRL, conjunctiva/corneas clear, EOM's intact; EARS: TM's are bulging, with decreased light reflex and roa on the right and normal on the left. NOSE: congested, stuffy and runny THROAT: erythematous, no exudates, Tonsils not enlarged Neck: Supple, symmetrical, no adenopathy Lungs: No accessory muscle use, breath sounds are clear to auscultation bilaterally, no w heezes, crackles or rhonchi- No cough- Chest Wall: No tenderness or deformity Heart: Regular rate and rhythm, S1, S2 normal, no murmur, rub or gallop Abdomen: Soft, non-tender Extremities: Extremities normal, atraumatic, no cyanosis, clubbing, or edema Pulses: Radial pulses 2+ and symmetric Skin: Warm and dry Lymph nodes: Cervical and supraclavicular nodes normal Neurologic: Gait normal Assessment/Plan: 1. Allergic rhinitis, unspecified seasonality, unspecified trigger Assessment & Plan: to avoid dust mites, wash sheets once a week and expose them to the sun. Avoid exposure to dust, vacuum the carpets at least twice a week and dust furniture with a damp cloth. Avoid pet, dust mold, pollen and grass exposures. Orders: - Bordetella pertussis DNA, NAAT - Fluticasone Propionate; 1 spray by Nasal route Daily. Dispense: 16 g; Refill: 2 2. Subacute maxillary sinusitis Assessment & Plan: Start Flonase We discussed that the Zithromax is not the appropriate antibiotic for sinus/ sinusitis; elenita t he was started because of her insistence over the phone to be treated for pertussis despit e my contraindication to come to be evaluated because she had no cough after a week of being congested. The pertussis test was obtained today, she still could have been no cough. The patient was satisfied with the care received and voiced understanding of the issues dis cussed and the plan. Return if symptoms worsen or fail to improve. Electronically signed by Katy Sanford MD Portions of this report were transcribed using [employer] voice recognition soft hunter. Although effort was made in correcting the errors; grammatical and sound alike errors may still be present. documented in this enc ounter Plan of Treatment Not on filedocumented as of this encounter Procedures + +--------+ + + + | Procedure Name | Priori | Date/Time | Associated Diagnosis | Comments | | | ty | | | | + +--------+ + + + | BORDETELLA PERTUSSIS | STAT | 06/25/2018 | Allergic rhinitis, | Results for this | | DNA, NAAT | | 10:40 AM | unspecified | procedure are in the | | | | PDT | seasonality, | results section. | | | | | unspecified trigger | | + +--------+ + + + documented in this encounter Results Bordetella pertussis DNA, NAAT (06/25/2018 10:40 AM PDT) + + + + + + | Component | Value | Ref Range | Performed | Pathologist | | | | | At | Signature | + + + + + + | Bordetella | Negative | Negative | [facility] | | | Pertussis | | | [facility] | | | [facility] | | [facility] | | | | [facility] - | | | | | | LABORATORY | | + + + + + + + + | Specimen | + + | Body Fluid - Entire | | nasopharynx (body | | structure) | + + + + + + + | Performing | Address | City/State/Zipcode | Phone Number | | Organization | | | | + + + + + | [facility] | [address] | [place] | [phone] | | [facility] | | [address] | | | - LABORATORY | | | | + + + + + documented in this encounter Visit Diagnoses + + | Diagnosis | + + | Allergic rhinitis, unspecified seasonality, unspecified trigger | + + | Subacute maxillary sinusitis Acute maxillary sinusitis | + + documented in this encounter
--- OUTSIDE RECORDS SUMMARY | ~2020-01-03 | XMS | Encounter Summary ---
Demographics + + + | Address | [address] | | | [place] [address] | + + + | Home Phone [...] | Organization | [facility] | | | and [...] Team Providers + +------+ + | Care Duck Farmer Name | Role | Phone | + [...] Specialty | Physical | Diagnoses | Oniel Sanford, | | | Services | Therapy / | Thoracic | MD Katy | Liv Montero, | | | Required | Rehabilitatio | outlet | [address] | [address] | | | [address] | syndrome | [address] [place] [address] | | | | | associated | [place], | | | | | with | [address] | [place] [address] | | | | | cervical rib | Phone: | Phone: | | | | | | [phone] | [phone] | | | | | | Fax: | Fax: | | | | | | [phone] | [phone] | +--------+ + + + + + [...] + + | 08/10/ | Office | [facility] | Katy Sanford MD | Thoracic outlet | | 2018 | Visit | [facility] [place] | [address] | syndrome associated | | | | [address] | [place], [place] | with cervical rib | | | | [place], [place] | [address] | (Primary Dx); | | | | [address] | | Anxiety with | | | | [phone] | | depression; Need for | | [...] have any questions, please c all us [phone]. Appointment reminders by text: Do you have an upcoming appointment? Receive a test reminder! Text the word HEALTH to [phone] to opt. in and ask our desk officer for more information blake carballo your visit today. *Standard message and data rates may apply Referral for Neurology is ready for you. Dr. Addison. [phone]. Mental Health Referrals: Please choose and then contact your insurance regarding coverage for any of the provided pr oviders or facilities listed below: Alexandra Casas, [employer]: [phone]. Not taking new clients, can be put on a waiting list . Madeleine Calhoun MA: [phone] Estephania Serrato: [phone] Pam Gomez, PhD: [phone] Dr. Ankush Chao: [phone] Antelmo Cortez, [facility]: [phone] Peter Stanley, [employer]: [phone] Allyson Rios, [facility]: [phone]. [facility]. "[facility]" Brian [place] [phone] Madyson Macedo: [phone] [facility] [place]: [phone] Eva Moore, [facility]: [phone] Cindy Manning: [phone]. [facility]: [phone] Referrals: During your office today we have ordered referrals for you -Physical Therapy-. The referral will be reviewed by our Insurance Authorization Coordinators. Once approved the order will be sent to the referred providers office. The referred providers office will contact you to schedule. If you have not heard to schedule your referral/s within 10 business days, please call our Referral Dragger at [phone] to check on the status of the referral authoriza tion. Prescription Refill Notice: All prescription refill requests [...] check with your pharmacist before using any onmr-yyg-qkdej er medicines, including herbal supplements. Date Last Reviewed: 01/02/201719996187-2596 [employer]. [address] [place] [address], [place] [address]. All righ ts reserved. 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 Bu t change doesn t happen right [...] will respond to talk therapy and me ortiz. Educate yourself about anxiety disorders. Keep track [...] in the long run. Date Last Reviewed: 09/04/201619997018-6895 [employer]. [address] [place] [address], [place] [address]. All righ ts reserved. This information is [...] check with your pharmacist before using any payz-nbd-svzxr er medicines, including herbal supplements. Date Last Reviewed: 01/02/201719991216-4129 [employer]. [address] [place] [address]. All righ ts reserved. This information is [...] PHQ9 SCORE Office Visit from 08/10/2018 in [facility] Office Visit from 2017 in [facility] PHQ-9 Total Score (Patient Health Questionnaire) 15 8 ANXIETY/STRESS SCORE Office Visit from 08/10/2018 in [facility] SILAS-7 Score (General Anxiety Disorder) 19 Note placed in Referral for Denied MRI from 04/13/2018 General 04/13/2018 1058 Reta Arvizu 2017-04/13??>PENDING [facility] CLINICAL REVIEW, REF # [id number] - Note PENDING- [facility] CLINICAL REVIEW, REF # [id number] Update - Scheduling Minimum Data Set | Update Description: UPLOADED CLINICAL INFORMATION ON [employer] WEBSITE. PER [employer] RESPONSE, "In order to process this case, please provide six weeks of recent ph ysician directed treatment with a follow up evaluation related to this MRI cervical spine wi thout contrast request. Please provide the above along with current clinical office notes so that the medical necessity review process can be completed. | Additional Contact Info: [email or web address] TEL: [phone]/ FAX: [phone] Past Medical History: Diagnosis Date Abrasion of [...] Portions of this report were transcribed using [email or web address] voice recognition soft hunter. Although effort was made in correcting the errors; grammatical and sound alike errors may still be present. documented in this enc ounter Plan of Treatment + + +--------+ + + | Name | Type | Priori | Associated Diagnoses | Order Schedule | | | | ty | | | + + +--------+ + + | Referral to [facility] | Outpatient | Routin | Thoracic outlet | Ordered: 08/10/2018 | | [place] [facility] | Referral | e | syndrome associated | | | [place] | | | with cervical rib | [...]
--- OUTSIDE RECORDS SUMMARY | ~2020-01-03 | XMS | Encounter Summary ---
Demographics + + + | Address | [address] | | | [place] [address] | + + + | Home Phone [...] + | Organization | [facility] | | | and [...] Team Providers + +------+ + | Care Lcpc Name | Role | Phone | + +------+ + | Mohinder Gage DO | PCP | | + +------+ + Reason for Visit + + + | Reason | Comments | + + + | Urinary Pain | | + + + Encounter Details +--------+ + + + + | Date | Type | Department | Care Team | Description | +--------+ + + + + | 02// | Emergency | [facility] | Rupesh Butt | Josephonephritis | | 2019 | | [facility] | MD [address] | (Primary Dx) | | | | CENTER [address] | [address] [place] | | | | | [place], [place] | [place] [address] | | | | | [address] | [phone] | | | | | [phone] | | | +--------+ + + + [...] + + + | Blood Pressure | 104/68 | 10/07/2019 7:14 PM | | | | | PST | | + + + + + | Pulse | 96 | 10/07/2019 7:14 PM | | | | | PST | | + + + + + | Temperature | 36 C (96.8 F) | 10/07/2019 5:37 PM | | | | | PST | | + + + + + | Respiratory Rate | 20 | 10/07/2019 5:37 PM | | | | | PST | | + + + + + | Oxygen Saturation | 98% | 10/07/2019 7:14 PM | | | | | PST | | + + + + + | Inhaled Oxygen | - | - | | | Concentration | | | | + + + + + | Weight | 52.2 kg (115 lb) | 10/07/2019 5:37 PM | | | | | PST | | + + + + + | Height | 152.4 cm (5') | 10/07/2019 5:37 PM | | | | | PST | | + + + + + | Body Mass Index | 22.46 | 10/07/2019 5:37 PM | | | | | PST | | + + + + + documented in this encounter Discharge Instructions AttachmentsThe following attachments cannot be sent through Care Everywhere.Urinary Tract, Female Anatomy (Monegasque)documented in this encounter Medications at Time of [...] + + | COMPREHENSIVE | STAT | 10/07/2019 [...] + + + | CULTURE, URINE | Routin | 10/07/2019 | | Results for this | | | e | 5:43 PM | | procedure are in the | | | | PST | | results section. | + +--------+ + + + documented in this encounter Results Comprehensive Metabolic Panel (10/07/2019 6:09 PM PST) + + + + + + | Component | Value | Ref Range | Performed | Pathologist | | | | | At | Signature | + + + + + + | Na | 137 | 136 - 145 | [facility] | | | | | mmol/L | [facility] | | | | | | MEDICAL | | | | | | CENTER - | | | | | | LABORATORY | | + + + + + + | K | 4.0 | 3.4 - 5.1 | [facility] | [...] + + + | Anion Gap | 8 | 3 - 16 mmol/L | [facility] | | | | | | [facility] | | | | | | MEDICAL | | | | | | CENTER - | | | | | | LABORATORY | | + + + + + + | Glucose | 107 (H) | 60 - 106 mg/dL | [facility] | | | | | | [facility] | | | | | | MEDICAL | | | | | | CENTER - | | | | | | LABORATORY | | + + + + + + | BUN | 8 (L) | 9 - 23 mg/dL | [facility] | | | | | | [facility] | | | | | | MEDICAL | | | | | | CENTER - | | | | | | LABORATORY | | + + + + + + | Creatinine | 0.58 | 0.55 - 1.02 | [facility] | | | | | mg/dL | [facility] | | | | | | MEDICAL | | | | | | CENTER - | | | | | | LABORATORY | | + + + + + + | eGFR if not | >60Comment: GLOMERULAR | >=60 | [facility] | | | | FILTRATION | mL/min/1.73m2 | [facility] | | | [place] | RATE,ESTIMATED | | MEDICAL | | | | mL/min/1.99r3Djyv than | | CENTER - | | [...] + + + + | Calcium | 8.7 | 8.7 - 10.4 | [facility] | | | | | mg/dL | [facility] | | | | | | MEDICAL | | | | | | CENTER - | | | | | | LABORATORY | | + + + + + + | Albumin | 4.0 | 3.2 - 4.8 g/dL | [facility] [...] + + + + | Total | 5.9 | 5.7 - 8.2 g/dL | [facility] [...] + + + + | ALT | 22 | 10 - 49 U/L | [facility] | | | | | | [facility] | | | [facility] | [facility]ICAL | | | | | | CENTER - | | | | | | LABORATORY | | + + + + + + | Alkaline | 63 | 46 - 116 U/L | [facility] | | | Phosphatase | | | [facility] | | | | | | MEDICAL | | | | | | CENTER - | | | | | | LABORATORY | | + + + + + + | Globulin | 1.9 (L) | 2.1 - 3.8 g/dL | [facility] | | | | | | [facility] | | | | | [facility] | | | | | | CENTER - | | | | | | LABORATORY | | + + + + + + | Albumin/Juana | 2.1 (H) | 0.8 - 1.9 | [facility] | | | bulin Ratio | | | [facility] | | | | | | MEDICAL | | | | | | CENTER - | | | | | | LABORATORY | | + + + + + + | BUN/Creatin | 13.8 | | [facility] | | | ine [...] + | [facility] | [address] | [place] | [phone] | | [facility] | | [address] | | | - LABORATORY | | | | + + + + + CBC with Differential (10/07/2019 6:09 PM PST) + + + + + + | Component | Value | Ref Range | Performed | Pathologist | | | | | At | Signature | + + + + + + | WBC | 16.9 (H) | 4.0 - 11.0 K/uL | [facility] | | | | | | [facility] | | | | | MEDICAL | | | | | | CENTER - | | | | | | LABORATORY | | + + + + + + | RBC | 4.02 | 3.70 - 5.20 | [facility] | [...] + + + + | Hematocrit | 38.7 | 34.0 - 47.0 % | [facility] | | | | | | [facility] | | | | | | [facility]ICAL | | | | | | CENTER - | | | | | | LABORATORY | | + + + + + + | MCV | 96.3 | 83.0 - 101.0 fL | [facility] [...] + + + + | RDW-SD | 44.2 | 35.1 - 46.3 fL | [facility] | | | | | | [facility] | | | | | | MEDICAL | | | | | | CENTER - | | | | | | LABORATORY | | + + + + + + | Platelet | 346 | 140 - 440 K/uL | [facility] | | | Count | | | [facility] | | | | | | MEDICAL | | | | | | CENTER - | | | | | | LABORATORY | | + + + + + + | MPV | 9.8 | 6.5 - 12.4 fL | [facility] | | | | | | [facility] | | | | | | MEDICAL | | | | | | CENTER - | | | | | | LABORATORY | | + + + + + + | % | 81.9 | 45.0 - 82.0 % | [facility] | | | Neutrophils | | | [facility] | | | | | | MEDICAL | | | | | | CENTER - | | | | | | LABORATORY | | + + + + + + | % | 12.8 (L) | 20.0 - 45.0 % | [facility] | | | Lymphocytes | | | [facility] | | | | | | MEDICAL | | | | | | CENTER - | | | | | | LABORATORY | | + + + + + + | % Monocytes | 3.4 (L) | 4.0 - 12.0 % | [facility] | | | | | | [facility] | | | | | | MEDICAL | | | | | | CENTER - | | | | | | LABORATORY | | + + + + + + | % | 1.1 | 0.0 - 5.0 % | [facility] [...] + + + + | Absolute | 13.84 (H) | 1.80 - 8.50 | [facility] [...] + + + + | Absolute | 0.57 | 0.00 - 1.00 | [facility] | | | Monocytes | | K/uL | [facility] | | | | | | MEDICAL | | | | | | CENTER - | | | | | | LABORATORY | | + + + + + + | Absolute | 0.18 | 0.00 - 0.40 | [facility] | [...] | | Basophils | | K/uL | [facility] | | | | | | MEDICAL | | | | | | CENTER - | | | | | | LABORATORY | | + + + + + + | Absolute | 0.07 (H)Comment: For | 0.00 - 0.03 | [...] 0.003-0.091 K/uL 0.0-0.9% 2nd 0.007-0.247 K/uL | MEDICAL CENTER | | 0.1-2.0% 3rd 0.018-0.456 K/uL 0.1-2.0% | - LABORATORY | + + + + + + + + | Performing | Address | City/State/Zipcode | Phone Number | | Organization | | | | + + + + + | [facility] | [address] | [place], [place] | [phone] | | [facility] | | [address] | | | - LABORATORY | | [...] | | marisel (multiple | | [facility] | | | | morphologies | | [...] | | Hemolytic Streptococci, | | [facility] | | | | Group BComment: If [...] ext. | | | | | | 1054 with request. | | | | + + + + + + + + | Specimen | + + | Urine - Urine | | specimen obtained by | | clean catch | | procedure (specimen) | + + + + + | Narrative | Performed At | + + + | Mixed gram positive and negative organisms seen. | [facility] | | | [facility] | | | [facility] | | | - LABORATORY | + + + + + + + + | Performing | Address | City/State/Zipcode | Phone Number | | Organization | | | | + + + + + | [facility] | [address] | [place] | [phone] | | [facility] | | [address] | | | - LABORATORY | | | | + + + + + , Urine, Qual (10/07/2019 5:43 [...] [address] | [place] | [phone] | | [facility] | | [address] | | | - LABORATORY | | | | + + + + + Urinalysis with Microscopic with Culture if Indicated (10/07/2019 5:43 PM PST) + + + [...] + + + + | Specific | 1.023 | 1.001 - 1.030 | [facility] | | | [place], | | | [facility] | | | Urine | | | MEDICAL | | | | | | CENTER - | | | | | | LABORATORY | | + + + + + + | Protein, | 30 mg/dL (A) | Negative | [facility] | | | Urine | | | [facility] | | | | | | MEDICAL | | | | | | CENTER - | | | | | | LABORATORY | | + + + + + + | Blood, | Large (A) | Negative | [facility] | | | Urine | | | [facility] | | [...] + + + + | Leukocyte | Large (A) | Negative | [facility] | | [...] + + + | White Blood | >100 (A) | 0 - 2 /HPF | [...] + + + + | Bacteria, | 2+ (A) | Negative /HPF | [facility] | [...] + + | Urine | Urine Culture Set Up | | [facility] | | | Comment | | | [facility] | | [...] [address] | [place] | [phone] | | [facility] | | [address] | | | - LABORATORY | | | | + + + + + documented in this encounter Visit Diagnoses + + | Diagnosis | + + | Pyelonephritis - Primary Pyelonephritis, unspecified | + + documented in this encounter Administered Medications + +---------+ +------+-------+------+ | Medication Order | MAR | Action | Dose | Rate | Site | | | Action | Date | | | | + +---------+ +------+-------+------+ | cefTRIAXone (ROCEPHIN) 1 g in | New Bag | 10/07/19 | 1 g | 100 | | | sodium chloride 0.9% 50 mL IVPB | | 20 6:31 | | mL/hr | | | 1 g, Intravenous, Administer over | | PM PST | | | | | 30 Minutes, ONCE, 10/07/19 at | | | | | | | 1800, For 1 dose, Activate system | | | | | | | and mix before use., | | | | | | | Indications: uti | | | | | | + +---------+ +------+-------+------+ +---+---+ | | | +---+---+ + +-------+ +-------+---+---+ | ketorolac (TORADOL) injection | Given | 10/07/19 | 30 mg | | | | 30 mg 30 mg, Intravenous, ONCE, | | 20 6:31 | | | | | 10/07/19 at 1755, For 1 dose | | PM PST | | | | + +-------+ +-------+---+---+ +---+---+ | | | +---+---+ + + + +---+---+---+ | phenazopyridine (PYRIDIUM) 200 | Dispense | 10/07/19 | | | | | mg tablet (ER Prepack) Oral, SEE | to Home | 20 7:38 | | | | | ADMIN INSTRUCTIONS, Starting Mon | | PM PST | | | | | 10/07/19 at 1935, Take 1 tablet by | | | | | | | mouth three times daily after | | | | | | | meals as needed for bladder | | | | | | | pain., | | | | | | + + + +---+---+---+ +---+---+ | | | +---+---+ + +---------+ +--------+-------+---+ | sodium chloride 0.9% (NS) bolus | New Bag | 10/07/19 | 1,000 | 1000 | | | 1,000 mL 1,000 mL, Intravenous, | | 20 6:11 | mLs | mL/hr | | | Administer over 1 Hours, ONCE, | | PM PST | | | | | 10/07/19 at 1755, For 1 dose | | | | | | + +---------+ +--------+-------+---+ +---+---+ | | | +---+---+ documented in this encounter"
--- OUTSIDE RECORDS SUMMARY | ~2020-01-03 | XMS | Encounter Summary ---
Demographics + + + | Address | [address] | | | [place] [address] | + + + | Home Phone [...] Author + + + | Author | [facility] | + + + | Organization | [facility] | + + + | Address | Unknown | + + + | Phone | Unavailable | + + + Support + + +---------+ + | Name | Relationship | Address | Phone | + + +---------+ + | Radha Soria | ECON | Unknown | | + + +---------+ + Care Team Providers + +------+ + | Care Supervisor Conditioning Yard Name | Role | Phone | + [...] | | | | | Procedures | [place], [place] | for Health | | | | | PHYSICAL | [address] | and Healing, | | | | | THERAPY | Phone: | [address], | | | | | REFERRAL | [phone] | [address] | | | | | | Fax: | [place], [place] | | | | | | [phone] | [address] | | | | | | | Phone: | | | | | | | [phone] | | | | | | | Fax: | | | | | | | [phone] | +--------+--------+ + + + + Reason [...] 2019 | | Department [address] | [address] [facility] | | | | | [facility] | [facility] | | | | | [facility] | [place], [place] | | | | | [place], [place] | [address] | | | | | [address] | [phone] | | | | | [phone] | | | +--------+ + + + [...] Please carefully review your discharge instructions for critical access hospital about continuing your care at home. 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 Last Updated: 12/11/19 10:08 AM Care | | | Recommendation: Receiving mental health services through [facility]. | | | Please contact [facility] for any mental health concerns: [place] | | | [phone] [place] [phone] Crisis Line [phone] These | | | are guidelines and [...] E.D. Visit Count (12 mo.) Facility Visits [facility] 1 | | | [facility] 1 [facility] | | | [place] 3 [facility] 11 Total 16 Note: | | | Visits indicate total known visits. Recent Emergency Department | | | Visit Summary Showing 10 most recent visits out of 17 in the past 12 | | | months Date Facility [facility] State Type Diagnoses or Chief Complaint | | | Dec 11, 2019 [facility] [place] Emergency | | | 10,800. Infection Dec 08, 2019 [facility] [place] | | | [place] Emergency Spasms Other stimulant abuse, uncomplicated | | | Other problems related to lifestyle Dec 08, 2019 [place] | | | [place]. [place] Emergency Hallucinations Other | | | stimulant abuse, uncomplicated Dec 06, 2019 [facility] | | | [place]. [place] Emergency Medical Complacations from alc and | | | drug abuse Spasms Other stimulant abuse, uncomplicated | | | Dec 01, 2019 [facility] Emergency | | | CP,sob Pain Tachycardia Restlessness and agitation | | | Other stimulant use, unspecified with intoxication, unspecifi | | | Panic disorder [episodic paroxysmal anxiety] Nov 20, 2019 | | | [facility] Emergency needle stuck in | | | arm Foreign Body in Skin Other injury of unspecified body | | | region, initial encounter Nov 16, 2019 [facility] | | | [facility] Emergency Pruritis Adverse effect of | | | unspecified drugs, medicaments and biologic Pruritus, | | | unspecified Urticaria, unspecified Nov 16, 2019 [facility] | | | [facility] Emergency Arm Injury Superficial | | | foreign body of left upper arm, initial encounter Contact with | | | needle (sewing), initial encounter Encounter for immunization | | | Nov 15, 2019 [facility]. [place] Emergency FB | | | STUCK IN ARM Other psychoactive substance use, unspecified, | | | uncomplicated Other injury of unspecified body region, initial | | | encounter Oct 17, 2019 [facility] | | | Emergency Medical Problem (Minor) Alcohol use, | | | unspecified with intoxication, uncomplicated Recent | | | Inpatient Visit Summary No recorded inpatient visits. Care Team | | | Provider Specialty Phone Fax Service Dates Giancarlo Quarles | | | Saji [facility] Community Health Worker Nov 16, 2019 | | | - Current Collective Portal This patient has registered at | | | the [facility] [place] [facility] Department For | | | more information visit: | | | [email or web address] | | | [email or web address] e PLEASE NOTE: 1. Any care recommendations [...] or completeness of information provided. ? 2019 [employer] | | | [employer] - [email or web address] | | + + + + + [...] on | | fileED Care Guidelines from [facility] [facility] [place] Updated: 12/11/19 10:08 AM Care | | Recommendation:Receiving mental health services through [facility]. Please contact | | [facility] for any mental health concerns:Carlo [phone] | | [phone] Line [phone] are guidelines and the provider should | [...] 0 E.D. Visit Count (12 mo.)Facility Visits [facility] 1 [facility] | [facility] 1 [facility] 3 [facility] | | Center 11 Total 16 Note: Visits indicate total known visits. Recent Emergency | | Department Visit SummaryShowing 10 most recent visits out of 17 in the past 12 | | monthsDate Facility City State Type Diagnoses or Chief Complaint Dec 11, 2019 [place] | | [facility] [place] Emergency 10,800. Infection Dec 08, 2019 | | [facility] [place]. [place] Emergency Spasms Other stimulant abuse, | | uncomplicated Other problems related to lifestyle Dec 08, 2019 [facility] | | [place] Emergency Hallucinations Other stimulant abuse, uncomplicated Dec | | 2019 [facility] [place]. [place] Emergency Medical Complacations from alc | | and drug abuse Spasms Other stimulant abuse, uncomplicated Dec 01, 2019 | | [facility] [place]. [place] Emergency CP,sob Pain Tachycardia | | Restlessness and agitation Other stimulant use, unspecified with intoxication, | | unspecifi Panic disorder [episodic paroxysmal anxiety] Nov 20, 2019 [facility] | [place]. [place] Emergency needle stuck in arm Foreign Body in Skin Other | | injury of unspecified body region, initial encounter Nov 16, 2019 [facility] [place] | | [place]. [place] Emergency Pruritis Adverse effect of unspecified drugs, medicaments and | | biologic Pruritus, unspecified Urticaria, unspecified Nov 16, 2019 [facility] | | [facility] [place]. [place] Emergency Arm Injury Superficial foreign body of left | | upper arm, initial encounter Contact with needle (sewing), initial encounter | | Encounter for immunization Nov 15, 2019 [facility] [place]. [place] Emergency FB | | STUCK IN ARM Other psychoactive substance use, unspecified, uncomplicated Other | | injury of unspecified body region, initial encounter Oct 17, 2019 [facility] | | [place] Emergency Medical Problem (Minor) Alcohol use, unspecified with | | intoxication, uncomplicated Recent Inpatient Visit SummaryNo recorded inpatient visits. | | Care TeamProvider Specialty Phone Fax Service Dates Giancarlo Quarles -, [facility] | | Community Health Worker Nov 16, 2019 - Current [employer] PortalThis | | patient has registered at the [facility] Emergency Department | | For more information visit: | | [email or web address] PLEASE | | NOTE: 1. Any care [...] completeness of information | | provided.? 2020 [employer]. - [email or web address] | |[facility] 1 | |[facility] 1 | |[facility] 3 | |[facility] 11 | |Total 16 | |Note: Visits indicate total known visits. | | | |Recent Emergency Department Visit Summary | |Showing 10 most recent visits out of 17 in the past 12 months | |Date Facility City State Type Diagnoses or Chief Complaint | |Dec 11, 2019 [facility] [place] Emergency | | 10,800. Infection | | | |Dec 08, 2019 [facility]. [place] Emergency | | Spasms | | Other stimulant abuse, uncomplicated | | Other problems related to lifestyle | | | |Dec 08, 2019 [facility]. [place] Emergency | | Hallucinations | | Other stimulant abuse, uncomplicated | | | |Dec 06, 2019 [facility]. [place] Emergency | | Medical Complacations from alc and drug abuse | | Spasms | | Other stimulant abuse, uncomplicated | | | |Dec 01, 2019 [facility]. [place] Emergency | | CP,sob | | Pain | | Tachycardia | | Restlessness and agitation | | Other stimulant use, unspecified with intoxication, unspecifi | | Panic disorder [episodic paroxysmal anxiety] | | | |Nov 20, 2019 [facility]. [place] Emergency | | needle stuck in arm | | Foreign Body in Skin | | Other injury of unspecified body region, initial encounter | | | |Nov 16, 2019 [facility]. [place] Emergency | | Pruritis | | Adverse effect of unspecified drugs, medicaments and biologic | | Pruritus, unspecified | | Urticaria, unspecified | | | |Nov 16, 2019 [facility] Emergency | | Arm Injury | | Superficial foreign body of left upper arm, initial encounter | | Contact with needle (sewing), initial encounter | | Encounter for immunization | | | |Nov 15, 2019 [facility]. [place] Emergency | | FB STUCK IN ARM | | Other psychoactive substance use, unspecified, uncomplicated | | Other injury of unspecified body region, initial encounter | | | |Oct 17, 2019 [facility]. [place] Emergency | | Medical Problem (Minor) | | Alcohol use, unspecified with intoxication, uncomplicated | | | | | | | |Recent Inpatient Visit Summary | |No recorded inpatient visits. | | | |Care Team | |Provider Specialty Phone Fax Service Dates | |Giancarlo Quarles - [facility] Community Health Worker Nov 16, 2019 - Mickie donnelly | | | |Collective Portal | |This patient has registered at the [facility] Emergency Departmen t | |For more information visit: [email or web address] | |PLEASE NOTE: | | 1. Any [...] information provided. | | | |? 2020 [employer]. - [email or web address] | + + + + + + + | Performing | Address | City/State/Zipcode | Phone Number | | Organization | | | | + + + + + | [facility] | [address] | [place], [place] | [phone] | | [employer] | [address] | [address] | | + + + + + [...]
--- OUTSIDE RECORDS SUMMARY | ~2020-01-03 | XMS | Encounter Summary ---
Demographics + + + | Address | [address] | | | [place] [address] | + + + | Home Phone [...] + + | Organization | [facility] | | [...] Providers + +------+ + | Care Tobacco Scrap Sifter Name | Role | Phone | + +------+ + PCP | Unavailable | + +------+ + Encounter Details +--------+ + + + + | Date | Type | Department | Care Team | Description | +--------+ + + + + | 01/07/ | Hospital | [facility] | | | | 2009 - | Encounter | MED CTR EMERGENCY | | | | | | CENTER [address] | | | | 01/08/ | | [place] | | | | 2009 | | [address] | | | | | | [phone] | | | +--------+ + + + [...]
--- OUTSIDE RECORDS SUMMARY | ~2020-01-03 | XMS | Clinical Summary ---
Demographics + + + | Address | [address] | | | [place] [address] | + + + | Home Phone [...] Organization | [facility] | [...] Team Providers + +------+ + | Care Chief Of Staff Doctor Name | Role | Phone | + [...] | 2019 - | | | | ([facility]) (Primary Dx) | | | | | [...] 2019 | | | DO Jim | ([facility]) (Primary Dx); | | | | | | Alcohol use | +--------+ + + + + | 12/07/ | Emergency | Emergency Medicine | Pawel Clay, | Methamphetamine | 2019 | | | | abuse ([facility]) (Primary | | | | | | [...] | | | MD David Tripathi, | ([facility]) (Primary Dx) | | | | | [...] J?MRN: | | | | | | [id number] | | | [id number] | | | riteri | | | [...] | | 1 0 | | | [facility] | | | | | | Health [...] | | | 2020 | | | [facility] | | | | | | Health [...] | | | 2020 | | | [facility] | | | | | | Health [...] J?MRN: | | | | | | [id number] | | | [id number] | | | riteri | | | [...] | | 1 0 | | | [facility] | | | | | | Health [...] | | | 2020 | | | [facility] | | | | | | Health [...] | | | 2020 | | | [facility] | | | | | | Health [...] J?MRN: | | | | | | [id number] | | | [id number] | | | riteri | | | [...] | | | or | | | chronic manager | | | Dec | | | [...] | | | SALMON | | | BLACKFEET | | | | | | MEDICA [...] J?MRN: | | | | | | [id number] | | | [id number] | | | riteri | | | [...] | | | otify/ | | | [id number] | | | [id number] | | | [...] J?MRN: | | | | | | [id number] | | | [id number] | | | riteri | | | [...] J?MRN: | | | | | | [id number] | | | [id number] | | | riteri | | | [...] | | | | | performed at [facility] | | | | | | [facility];[place], [place] | | | | | | [address] | | | | + + + [...] + + + + + | [facility] | [address] | [place] [address] | [phone] | + + + + + Urinalysis [...] - 1.030 | [facility] | | | [place], | | | LABORATORY | | | [...] | | | Urine | performed at [facility];888 | | LABORATORY | | | | [address];[place] | | | | | | [address] | | | | + + + [...] + + + + + | [facility] | [address] | [place] [address] | [phone] | + + + + + CBC [...] | | | Absolute | performed at [facility];[address] | K/uL | LABORATORY | | | | [address];[place], [place] | | | | | | [address] | | | | + + + + + + + + | Specimen | + + | Blood | + + + + + + + | Performing | Address | City/State/Zipcode | Phone Number | | Organization | | | | + + + + + | [facility] | [address] | [place] [address] | [phone] | + + + + + , [...] JENNIFER | | | | performed at [facility];[address] | | LABORATORY | | | | [address];[place] | | | | | | [address] | | | | + + + + + + + + | Specimen | + + | Blood | + + + + + + + | Performing | Address | City/State/Zipcode | Phone Number | | Organization | | | | + + + + + | [facility] | [address] | [place] [address] | [phone] | + + + + + Ethanol [...] 86 (H)Comment: Testing | <10 mg/dL | [facility] | | | SERUM/PLASM | performed at [facility];[address] | | LABORATORY | | | A | [address];[place] | | | | | | [address] | | | | + + + + + + + + | Specimen | + + | Blood | + + + + + + + | Performing | Address | City/State/Zipcode | Phone Number | | Organization | | | | + + + + + | [facility] | [address] | [place] [address] | [phone] | + + + + + Acetaminophen [...] | | en, S | performed at [facility];888 | ug/mL | LABORATORY | | | | [address];[place], [place] | | | | | | [address] | | | | + + + + + + + + | Specimen | + + | Blood | + + + + + + + | Performing | Address | City/State/Zipcode | Phone Number | | Organization | | | | + + + + + | [facility] | [address] | [place] [address] | [phone] | + + + + + Salicylate [...] <3.0Comment: Testing | 2.8 - 20.0 | [facility] | | | mg/dL | performed at [facility];888 | mg/dL | LABORATORY | | | | [address];[place], [place] | | | | | | [address] | | | | + + + + + + + + | Specimen | + + | Blood | + + + + + + + | Performing | Address | City/State/Zipcode | Phone Number | | Organization | | | | + + + + + | [facility] | [address] | [place] [address] | [phone] | + + + + + Comprehensive [...] | | | | | performed at [facility] | | | | | | [facility];[place], [place] | | | | | | [address] | | | | + + + + + + + + | Specimen | + + | Blood | + + + + + + + | Performing | Address | City/State/Zipcode | Phone Number | | Organization | | | | + + + + + | [facility] | [address] | [place] [address] | [phone] | + + + + + Extra [...] [address] | [place] | [phone] | | [facility] | | [address] | | | - LABORATORY | | [...] + | [facility] | [address] | [place] | [phone] | | [facility] | | [address] | | | - LABORATORY | | [...] + | [facility] | [address] | [place] | [phone] | | [facility] | | [address] | | | - LABORATORY | | [...] [address] | [place] | [phone] | | [facility] | | [address] | | | - LABORATORY | | [...] [address] | [place] | [phone] | | [facility] | | [address] | | | - LABORATORY | | [...] + | [facility] [facility] | [address] | [place] | [phone] | | [facility] | | [address] | | | - LABORATORY | | [...] | | | | MEI REDMOND MD ([id number]) | | | | | | on [...] | | radiologist was present for the alvarze portions of the exam. | + + [...] [address] | [place] | [phone] | | [facility] | | [address] | | | - LABORATORY | | [...] ext. | | | | | | 222 with request. | | | | + [...] organisms seen. | [facility] | | | [facility] | | [facility] | | | - LABORATORY | + + + + + + + + | Performing | Address | City/State/Zipcode | Phone Number | | Organization | | | | + + + + + | [facility] | [address] | [place] | [phone] | | [facility] | | [address] | | | - LABORATORY | | [...] | [employer] | MODA | [id number] | | [phone] | | Medica | | MEDICAID HMO | HEALTH | | 020-Pr | 1 | | id | | | MDCD | | esent | | | | | | [place] | | | | | | + +--------+ +--------+ +---------+--------+ | [employer] | MODA | [id number] | | [phone] | | Medica | | MEDICAID HMO [...] | al/Fam | | 1979 | | [place], [place] | | | lew | | | 5 (Home) | [address] | + +--------+ +--------+ + + | Nataly Martinez | Person | Self | [birth year] | [address] | | | al/Fam | | 1979 | | [place], [place] | | | lew | | | 5 (Home) | [address] | + +--------+ +--------+ + + Advance Directives + + + + + | Type | Date Recorded | Patient | Explanation | | | | Senior Java Web Application Developer | | + + + + + | Power of | | | | | Cotton Ball Bagger | | | | + + + + + | Advance | 10/22/2015 10:31 | | | | Directive | AM | | | + + + + +
--- OUTSIDE RECORDS SUMMARY | ~2020-01-03 | XMS | Encounter Summary ---
Demographics + + + | Address | [address] | | | [place] [address] | + + + | Home Phone | | + + + | Preferred Language | Unknown | + + + | Marital Status | Single | + + + | Mandaeism Affiliation | CHR | + + + | Race | White | + + + | Ethnic Group | Not or | + + + Author + + + | Author | [facility] | + + + | Organization | [facility] | + + + | Address | Unknown | + + + | Phone | Unavailable | + + + Support + + +---------+ + | Name | Relationship | Address | Phone | + + +---------+ + | Radha Soria | ECON | Unknown | | + + +---------+ + Care Team Providers + +------+ + | Care Produce Specialist Name | Role | Phone | [...] | | | | | Procedures | [place], [place] | for Health | | | | | PHYSICAL | [address] | and Healing, | | | | | THERAPY | Phone: | Building [address], | | | | | REFERRAL | [phone] | [address] | | | | | | Fax: | [place], [place] | | | | | | [phone] | [address] | | | | | | | Phone: | | | | | | | [phone] | | | | | | | Fax: | | | | | | | [phone] | +--------+--------+ + + + + Reason [...] + + | 12/10/ | Emergency | [facility] Emergency | Macy Rod, | | | 2019 | | Department [address] | [address] [facility] | | | | | [place] [facility] | [facility] | | | | | [facility] | [place], [place] | | | | | [place], [place] | [address] | | | | | [address] | [phone] | | | | | [phone] | | | +--------+ + + + [...] - 12/11/2019Thank you for coming to the [facility] Emergency De partment today for evaluation. Please carefully review your discharge instructions for [facility] about continuing your care at home. You [...] next available appointment. Please return to the [facility] Emergency Department if you experience any sudden or concerning c hanges to your health, including but not limited to increased redness/pain/swelling or high fevers that do not respond to tylenol. We are always available so please return to the Emergency Department immediately if you dev elop any new or worsening symptoms. Thank you again for coming to [facility]. We hope you feel better soon! 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 (Guatemalan)Abscess: Skin (Guatemalan)Thoracic Outlet Syndr ome: Exercises (Guatemalan)Thoracic Outlet Syndrome: General Info (Guatemalan)documented in this e ncounter Medications at Time [...] COLLECTIVE?NOTIFICATION?12/11/2019 11:19?NATALY BEDOYA?MRN: | COLLECTIVE | | [id number] Criteria Met 3 Facilities In 60 Days 5 Visits | MEDICAL | | In 12 Months Has Guidelines PDMP Security and Safety No | TECH[employer]OLOGIES | | recent Security Events currently on file ED Care Guidelines from | | | [facility] Last Updated: 12/11/19 10:08 AM Care | | | Recommendation: Receiving mental health services through [facility]. | | | Please contact [facility] for any mental health concerns: [place] | | | [phone] [place] [phone] Crisis Line [phone] These | | | are guidelines and [...] [facility] 1 | | | [facility] 1 [facility] | | | [place] 3 [facility] 11 Total 16 Note: | | | Visits indicate total known visits. Recent Emergency Department | | | Visit Summary Showing 10 most recent visits out of 17 in the past 12 | | | months Date Facility [facility] State Type Diagnoses or Chief Complaint | | | Dec 11, 2019 [facility] [place] Emergency | | | 10,800. Infection Dec 08, 2019 [facility] [place] | | | [place] Emergency Spasms Other stimulant abuse, uncomplicated | | | Other problems related to lifestyle Dec 08, 2019 [place] | | | Garza M.Mickie [place]. [place] Emergency Hallucinations Other | | | stimulant abuse, uncomplicated Dec 06, 2019 [facility] | | | [place] Emergency Medical Complacations from alc and | | | drug abuse Spasms Other stimulant abuse, uncomplicated | | | Dec 01, 2019 [facility] Emergency | | | CP,sob Pain Tachycardia Restlessness and agitation | | | Other stimulant use, unspecified with intoxication, unspecifi | | | Panic disorder [episodic paroxysmal anxiety] Nov 20, 2019 | | | [facility] Emergency needle stuck in | | | arm Foreign Body in Skin Other injury of unspecified body | | | region, initial encounter Nov 16, 2019 [facility] | | | [facility] Emergency Pruritis Adverse effect of | | | unspecified drugs, medicaments and biologic Pruritus, | | | unspecified Urticaria, unspecified Nov 16, 2019 [facility] | | | [facility] Emergency Arm Injury Superficial | | | foreign body of left upper arm, initial encounter Contact with | | | needle (sewing), initial encounter Encounter for immunization | | | Nov 15, 2019 [facility]. [place] Emergency FB | | | STUCK IN ARM Other psychoactive substance use, unspecified, | | | uncomplicated Other injury of unspecified body region, initial | | | encounter Oct 17, 2019 [facility] | | | Emergency Medical Problem (Minor) Alcohol use, | | | unspecified with intoxication, uncomplicated Recent | | | Inpatient Visit Summary No recorded inpatient visits. Care Team | | | Provider Specialty Phone Fax Service Dates Giancarlo Quarles | | | Saji [facility] Community Health Worker Nov 16, 2019 | | | - Current Collective Portal This patient has registered at | | | the [facility] [place] Emergency Department For | | | more information visit: | | | [email or web address] | | | [email or web address] e PLEASE NOTE: 1. Any care recommendations [...] or completeness of information provided. ? 2019 CDP | | | [email or web address]. - [email or web address].IP Street | | + + + + + [...] on | | fileED Care Guidelines from [facility] [place] Updated: 12/11/19 10:08 AM Care | | Recommendation:Receiving mental health services through [facility]. Please contact | | [facility]Jane for any mental health concerns:Carlo [phone] | | [phone] Line [phone] are guidelines and the provider should | [...] mo.)Facility Visits [facility] | [facility] 1 [facility] 3 [facility] | | Center 11 Total 16 Note: Visits indicate total known visits. Recent Emergency | | Department Visit SummaryShowing 10 most recent visits out of 17 in the past 12 | | monthsDate Facility City State Type Diagnoses or Chief Complaint Dec 11, 2019 [place] | | [facility] [place] Emergency 10,800. Infection Dec 08, 2019 | | [facility] [place]. [place] Emergency Spasms Other stimulant abuse, | | uncomplicated Other problems related to lifestyle Dec 08, 2019 [facility] | | [place] Emergency Hallucinations Other stimulant abuse, uncomplicated Dec | | 2019 [facility] Den[place]Crist[place]bal [place]. [place] Emergency Medical Complacations from alc | | and drug abuse Spasms Other stimulant abuse, uncomplicated Dec 01, 2019 | | [facility] [place]. [place] Emergency CP,sob Pain Tachycardia | | Restlessness and agitation Other stimulant use, unspecified with intoxication, | | unspecifi Panic disorder [episodic paroxysmal anxiety] Nov 20, 2019 [facility] | [place]. [place] Emergency needle stuck in arm Foreign Body in Skin Other | | injury of unspecified body region, initial encounter Nov 16, 2019 [facility] [place]min | | [place]. [place] Emergency Pruritis Adverse effect of unspecified drugs, medicaments and | | biologic Pruritus, unspecified Urticaria, unspecified Nov 16, 2019 [facility] | | [facility] [place]. [place] Emergency Arm Injury Superficial foreign body of left | | upper arm, initial encounter Contact with needle (sewing), initial encounter | | Encounter for immunization Nov 15, 2019 [facility] [place]. [place] Emergency FB | | STUCK IN ARM Other psychoactive substance use, unspecified, uncomplicated Other | | injury of unspecified body region, initial encounter Oct 17, 2019 [facility] | | [place] Emergency Medical Problem (Minor) Alcohol use, unspecified with | | intoxication, uncomplicated Recent Inpatient Visit SummaryNo recorded inpatient visits. | | Care TeamProvider Specialty Phone Fax Service Dates Giancarlo Quarles -, [facility] | | Community Health Worker Nov 16, 2019 - Current [employer] PortalThis | | patient has registered at the [facility] Emergency Department | | For more information visit: | | [email or web address] PLEASE | | NOTE: 1. Any care [...] completeness of information | | provided.? 2020 [employer]. - www.IP Street | |[facility] 1 | |[facility] 1 | |[facility] | |[facility] 11 | |Total 16 | |Note: Visits indicate total known visits. | | | |Recent Emergency Department Visit Summary | |Showing 10 most recent visits out of 17 in the past 12 months | |Date Facility City State Type Diagnoses or Chief Complaint | |Dec 11, 2019 [facility] [place] Emergency | | 10,800. Infection | | | |Dec 08, 2019 [facility]. [place] Emergency | | Spasms | | Other stimulant abuse, uncomplicated | | Other problems related to lifestyle | | | |Dec 08, 2019 [facility]. [place] Emergency | | Hallucinations | | Other stimulant abuse, uncomplicated | | | |Dec 06, 2019 [facility]. [place] Emergency | | Medical Complacations from alc and drug abuse | | Spasms | | Other stimulant abuse, uncomplicated | | | |Dec 01, 2019 [facility]. [place] Emergency | | CP,sob | | Pain | | Tachycardia | | Restlessness and agitation | | Other stimulant use, unspecified with intoxication, unspecifi | | Panic disorder [episodic paroxysmal anxiety] | | | |Nov 20, 2019 [facility]. [place] Emergency | | needle stuck in arm | | Foreign Body in Skin | | Other injury of unspecified body region, initial encounter | | | |Nov 16, 2019 [facility]. [place] Emergency | | Pruritis | | Adverse effect of unspecified drugs, medicaments and biologic | | Pruritus, unspecified | | Urticaria, unspecified | | | |Nov 16, 2019 [facility] | | Arm Injury | | Superficial foreign body of left upper arm, initial encounter | | Contact with needle (sewing), initial encounter | | Encounter for immunization | | | |Nov 15, 2019 [facility]. [place] Emergency | | FB STUCK IN ARM | | Other psychoactive substance use, unspecified, uncomplicated | | Other injury of unspecified body region, initial encounter | | | |Oct 17, 2019 [facility]. [place] Emergency | | Medical Problem (Minor) | | Alcohol use, unspecified with intoxication, uncomplicated | | | | | | | |Recent Inpatient Visit Summary | |No recorded inpatient visits. | | | |Care Team | |Provider Specialty Phone Fax Service Dates | |Giancarlo Quarles - [facility] Community Health Worker Nov 16, 2019 - Mickie donnelly | | | |Collective Portal | |This patient has registered at the [facility] Emergency Departmen t | |For more information visit: [email or web address] | |PLEASE NOTE: | | 1. Any [...] information provided. | | | |? 2020 [employer]. - [email or web address] Street | + + + + + + + | Performing | Address | City/State/Zipcode | Phone Number | | Organization | | | | + + + + + | [facility] | [address] | [place], [place] | [phone] | | TE[employer] | [address] | [address] | | + + + + + [...]
--- OUTSIDE RECORDS SUMMARY | ~2020-01-03 | XMS | Encounter Summary ---
Demographics + + + | Address | [address] | | | [place] [address] | + + + | Home Phone [...] | Organization | [facility] | | [...] Team Providers + +------+ + | Care Primer Inspector Name | Role | Phone | [...] + + | 06/25/ | Office | [facility] | Katy Sanford MD | Allergic rhinitis, | | 2017 | Visit | [facility] | [address] | unspecified | | | | [address] | [place] | seasonality, | | | | [place] | [address] | unspecified trigger; | | | | [address] | | Subacute maxillary | | | | [phone] | | sinusitis | +--------+---------+ + + [...] you have any questions, please call us [phone]. Lab results process: Once we receive the lab results we will contact you with the results one of three ways: A. Normal results/Slight abnormal- We will send you a letter with provider comments/instruc tions. B. Slightly abnormal/adjustment needed- We will call and give your results over the phone i f there is a small adjustment/instruction needed. C. Abnormal results- The java front end web developer will call and schedule a follow up [...] of an inj ury. Date Last Reviewed: 07/05/201619991341-4964 The [employer]. [address] [place] [address], [place] [address]. All righ ts reserved. This information is [...] diagnosed on 06/20/2018 with Pertussis at [facility]. 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 120 mL 0 Vwrxlcyzamrxxcd-RCGO-RI (DAYQUIL MULTI-SYMPTOM COLD/FLU PO) Take by mouth. [...] Portions of this report were transcribed using LoiLo voice recognition soft hunter. Although effort was [...] [address] | [place] | [phone] | | [facility] | | [address] | | | - LABORATORY | | | | + + + + + documented in this encounter Visit Diagnoses + + | Diagnosis | + + | Allergic rhinitis, unspecified seasonality, unspecified trigger | + + | Subacute maxillary sinusitis Acute maxillary sinusitis | + + documented in this encounter
--- OUTSIDE RECORDS SUMMARY | ~2020-01-03 | XMS | Encounter Summary ---
Demographics + + + | Address | [address] | | | [place] [address] | + + + | Home Phone [...] + | Organization | [facility] | | | and [place] [...] Team Providers + +------+ + | Care Miter Grinder Operator Name | Role | Phone | [...] | | | | CENTER [address] | [place], [place] | encounter (Primary | | | | [place], [place] | [address] | Dx) | | | | [address] | | | | | | [phone] | | | +--------+ + + + [...]
--- OUTSIDE RECORDS SUMMARY | ~2020-01-03 | XMS | Encounter Summary ---
Demographics + + + | Address | [address] | | | [place] [address] | + + + | Home Phone [...] Organization | [facility] [...] Team Providers + +------+ + | Care Insurance Specialist Name | Role | Phone | + +------+ + PCP | Unavailable | + +------+ + Encounter Details +--------+ + + + + | Date | Type | Department | Care Team | Description | +--------+ + + + + | 05/22/ | Hospital | [facility] | Joe Lauren | | | 2002 | Encounter | [facility] | [place] [phone] | | | | | AND DELIVERY [address] | (Fax) | | | | | [address] | | | | | | [place] | | | | | | [address] | | | | | | [phone] | | | +--------+ + + + [...]
--- OUTSIDE RECORDS SUMMARY | ~2020-01-03 | XMS | Encounter Summary ---
Demographics + + + | Address | [address] | | | [place] [address] | + + + | Home Phone | | + + + | Preferred Language | Unknown | + + + | Marital Status | Single | + + + | Anglican Affiliation | 1013 | + + + | Race | Unknown | + + + | Ethnic Group | Unknown | + + + Author + + + | Author | [facility] | | | and [place] | + + + | Organization | [facility] | | [...] Team Providers + +------+ + | Care National Basketball Association Scout Name | Role | Phone | + [...] | 10/31/ | Telephone | [facility] [place] | Gill Cantu, | Missed Visit (late | | 2018 | | [facility] | Aide | cancel) | | | | THERAPY [address] | | | | | [address] [place] | | | | | | [address] | | | | | | [phone] | | | +--------+ + + + [...]
--- OUTSIDE RECORDS SUMMARY | ~2020-01-03 | XMS | Encounter Summary ---
Demographics + + + | Address | [address] | | | [place] [address] | + + + | Home Phone | | + + + | Preferred Language | Unknown | + + + | Marital Status | Single | + + + | Synagogue Affiliation | 1013 | + + + | Race | Unknown | + + + | Ethnic Group | Unknown | + + + Author + + + | Author | [facility] | | | and [place] | + + + | Organization | [facility] | | | and [...] Team Providers + +------+ + | Care Fringing Machine Operator Name | Role | Phone [...] with cervical rib | | | | [address] | [place] | (Primary Dx) | | | | [phone] | [address] | | | | | | | [...] and enlarge the t horacic outlet space Umhl-tjs-ivrfozv pain medicine to relieve pain and swelling [...] Arm or hand that is suddenly cool, audio visual design engineer in color, or swollen Sudden weakness of your hand Symptoms that don t get better with therapy Date Last Reviewed: 04/13/201519997358-2193 [employer]. [address] [place] [address], [place] [address]. All righ ts reserved. This information is [...] done t phil ordered by PCP in [place]) Nataly is a 37 y.o. 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 Her right upper extremity is essentially asymptomatic. She does have slight numbness when s he lays on the right side too long but not bothersome. She has no progressive weakness. No recent injuries. She has a PCP in [place] who ordered an cervical x-ray which she did today at [facility] but decided to come here due to [...] cervical spine series performed earlier today at [facility]. There is minor D degenerative disc disease C4-5 and C5-6. Not mention of the radiology report are cervica l ribs. The left C7 shows an asymmetric quite large cervical rib. Assessment and Plans: 1. 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 [...] as needed This note was dictated using [employer] voice recognition software. Occasional wrong- word or s ound-alike substitutions may have occurred due to the inherent limitations of Jenn Rykert software. Please read the chart carefully and recognize, using context, where these subs titutions have occurred. 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
--- OUTSIDE RECORDS SUMMARY | ~2020-01-03 | XMS | Encounter Summary ---
Demographics + + + | Address | [address] | | | [place] [address] | + + + | Home Phone [...] | Organization | [facility] | | | and [place] [...] Team Providers + +------+ + | Care Nremt Name | Role | Phone | + +------+ + | Katy Sanford MD | PCP | | + +------+ + Encounter Details +--------+ + + + + | Date | Type | Department | Care Team | Description | +--------+ + + + + | 08/30/ | Abstract | [facility] [place] [facility] | Katy Sanford MD | | | 2018 | | [facility] | [address] | | | | | [address] | [place] | | | | | [place] | [address] | | | | | [address] | | | | | | [phone] | | | +--------+ + + + [...] +--------+ + + + | EXTERNAL LAB: HIGH | Routin | 08/19/2013 | | Results for this | | RISK HPV | e | | | procedure are in the | | | | | | results section. | + +--------+ + + + documented in this encounter Results External Lab: High Risk HPV (08/19/2013) + + + + + + | Component | Value | Ref Range | Performed | Pathologist | | | | | At | Signature | + + + + + + | EXTERNAL: | Negative | | | | | HIGH RISK | | | | | | HPV | | | | | + + + + + + documented in this encounter Visit Diagnoses Not on filedocumented in this encounter"
--- OUTSIDE RECORDS SUMMARY | ~2020-01-03 | XMS | Encounter Summary ---
Demographics + + + | Address | [address] | | | [place] [address] | + + + | Home Phone | | + + + | Preferred Language | Unknown | + + + | Marital Status | Single | + + + | Yazidi Affiliation | 1013 | + + + | Race | Unknown | + + + | Ethnic Group | Unknown | + + + Author + + + | Author | [facility] | | | and [place] | + + + | Organization | [facility] | | | and [...] Team Providers + +------+ + | Care Anchorman Name | Role | Phone | + [...] Refill | | 2019 | | [facility] [place] | [address] | | | | | [address] | [place] | | | | | [place], [place] | [address] | | | | | [address] | | | | | | [phone] | | | +--------+--------+ + + + [...]
--- OUTSIDE RECORDS SUMMARY | ~2020-01-03 | XMS | Encounter Summary ---
Demographics + + + | Address | [address] | | | [place] [address] | + + + | Home Phone | | + + + | Preferred Language | Unknown | + + + | Marital Status | Single | + + + | Gnosticism Affiliation | 1013 | + + + | Race | Unknown | + + + | Ethnic Group | Unknown | + + + Author + + + | Author | [facility] | | | and [place] | + + + | Organization | [facility] | | | and [place] [...] Team Providers + +------+ + | Care Farmhand Name | Role | Phone | + +------+ + PCP | Unavailable | + +------+ + Encounter Details +--------+ + + + + | Date | Type | Department | Care Team | Description | +--------+ + + + + | 07/01/ | Hospital | [facility] | Joe Lauren | Other abnormal | | 2001 | Encounter | [facility] | [place] [phone] | product of | | | | OUTPATIENT | (Fax) | conception | | | | PROCEDURES [address] | | [address] | | | | | | [place] | | | | | | [address] | | | | | | [phone] | | | +--------+ + + + [...]
--- OUTSIDE RECORDS SUMMARY | ~2020-01-03 | XMS | Encounter Summary ---
Demographics + + + | Address | [address] | | | [place] [address] | + + + | Home Phone [...] + + + | Author | [facility] | | | and [place] | + + + | Organization | [facility] | | | and [place] | [...] Team Providers + +------+ + | Care Hybrid Tester Name | Role | Phone | [...] | Required | Gynecology | ovarian | [address] | | | | | cyst | [address] | [place] | | | | | | [facility] | [place], [place] | | | | | | [place], | [address] | | | | | | [place] | Phone: | | | | | | [address] | [phone] | | | | | | Phone: | | | | | | | [phone] | | | | | | | Fax: | | | | | | | [phone] | | + + + + + [...] | | | | CENTER [address] | [facility] [place] | | | | | [place], [place] | [place] [address] | | | | | [address] | [phone] | | | | | [phone] | | | +--------+ + + + [...] ibuprofen for 5 days Follow up with BUS DRIVER SUPERVISOR AttachmentsThe following attachments cannot be sent through [...] Hemorrhagic | Ordered: 08/22/2019 | | Clinic CATERING AND EVENTS MANAGER & | Referral | e | ovarian [...] [address] | [place] | [phone] | | [facility] | | [address] | | | - LABORATORY | | [...] - 1.030 | [facility] | | | [place], | | | [facility] | | [...] n, Urine | | mg/dL, Negative | [facility] | | | | [...] [address] | [place] | [phone] | | [facility] | | [address] | | | - LABORATORY | | [...] 12 | 9 - 23 mg/dL | [facility] | | | | | | [facility] | | | | | | MEDICAL | | | | | | CENTER - | | | | | | LABORATORY | | + + + + + + | Creatinine | 0.59 | 0.55 - 1.02 | [facility] | | | | | mg/dL | [facility] | | | | | | MEDICAL | | | | | | CENTER - | | | | | | LABORATORY | | + + + + + + | eGFR if not | >60Comment: GLOMERULAR | >=60 | [facility] | | | | FILTRATION | mL/min/1.73m2 | [facility] | | | AFGHAN | RATE,ESTIMATED | | MEDICAL | | | | mL/min/1.99l7Kscv than | | CENTER - | | [...] + | [facility] | [address] | [place] | [phone] | | [facility] | | [address] | | | - LABORATORY | | [...] (H) | 4.0 - 11.0 K/uL | [facility] [...] | | nRBC | | K/uL | [facility] | [...] ranges: Trim. Absolute (K/uL) Percentage (%) | [facility] | | 1st 0.003-0.091 K/uL 0.0-0.9% 2nd 0.007-0.247 K/uL | [facility] | | 0.1-2.0% 3rd 0.018-0.456 K/uL 0.1-2.0% | - LABORATORY | + + + + + + + + | Performing | Address | City/State/Zipcode | Phone Number | | Organization | | | | + + + + + | [facility] | [address] | [place] | [phone] | | [facility] | | [address] | | | - LABORATORY | | [...] | | | | | Intravenous, ONCE, [facility] 08/22/19 | | PM PST | [...] | | | | 2335, Patient Address: [address] [place] [address] | | | | | | | [place] [address], | | | | | | + [...]
--- OUTSIDE RECORDS SUMMARY | ~2020-01-03 | XMS | Encounter Summary ---
Demographics + + + | Address | [address] | | | [place] [address] | + + + | Home Phone [...] | Organization | [facility] | | [...] Team Providers + +------+ + | Care Drama Critic Name | Role | Phone | + [...] | SURGERY [address] | [address] [place] [address] | | | | | [place] | [place] | | | | | [address] | [place] [address] | | | | | [phone] | | | +--------+ + + + [...] of this encounter Progress Notes Palma Forde, MULE DEVELOPER - 12/06/2019 2:44 PM PDTFLUOROSCOPY C ARM 11/16/2019 at [facility] CLINICAL INFORMATION: Foreign body left elbow. FINDINGS: Fluoro Time: .32 minute(s). Number of images: 3 DAP: 1.9675 mGycm^2 Left elbow foreign body removal, performed by Dr. Barreto. IMPRESSION: Fluoroscopic service for left elbow foreign body removal. Dictated by: Phyllis Rolon Michelle Signed by: Miguel Gonzalez Jeffrey Sign Date/Time: 11/16/2019 LEFT ELBOW TWO VIEWS 11/16/2019 at [facility] CLINICAL INFORMATION: Left arm injury, Foreign body. [...] EXTREMITY LEFT NON-VASCULAR LIMITED on 11/16/2019 at [facility] REASON FOR EXAM: arm, decubital fossa; COMPARISON: NONE. IMPRESSION: Limited sonographic interrogation in the area of clinical interest does not identify a sonographically apparent foreign body within the interrogated soft tissues. This report was X-RAY ELBOW 2 VIEWS LEFT 11/15/2019 at [facility] REASON FOR EXAM: Female, 39 years old, [...]
--- OUTSIDE RECORDS SUMMARY | ~2020-01-03 | XMS | Encounter Summary ---
Demographics + + + | Address | [address] | | | [place] [address] | + + + | Home Phone [...] + + | Organization | [facility] | | | and [place] [...] Team Providers + +------+ + | Care Parking Meter Attendant Name | Role | Phone | + +------+ + PCP | Unavailable | + +------+ + Encounter Details +--------+ + + + + | Date | Type | Department | Care Team | Description | +--------+ + + + + | 10/11/ | [facility] | [facility] | Bogdan, | | | 2010 | Encounter | MED CTR EMERGENCY | Deuce Sainz MD [address] | | | | | [place] [address] | [address] [place] | | | | | [place] | [place] [address] | | | | | [address] | [phone] | | | | | [phone] | | | +--------+ + + + [...]
--- OUTSIDE RECORDS SUMMARY | ~2020-01-03 | XMS | Encounter Summary ---
Demographics + + + | Address | [address] | | | [place] [address] | + + + | Home Phone [...] + + | Organization | [facility] | | [...] Team Providers + +------+ + | Care Bariatric Coordinator Name | Role | Phone | [...] Refill | | 2019 | | [facility] [place] | [address] | | | | | [address] | [place] | | | | | [place], [place] | [address] | | | | | [address] | | | | | | [phone] | | | +--------+--------+ + + + [...]
--- OUTSIDE RECORDS SUMMARY | ~2020-01-03 | XMS | Encounter Summary ---
Demographics + + + | Address | [address] | | | [place] [address] | + + + | Home Phone | | + + + | Preferred Language | Unknown | + + + | Marital Status | Single | + + + | Buddhist Affiliation | 1013 | + + + | Race | Unknown | + + + | Ethnic Group | Unknown | + + + Author + + + | Author | [facility] | | | and [place] | + + + | Organization | [facility] | | [...] Providers + +------+ + | Care Residential Director Name | Role | Phone | [...] [address] | | | | | [facility] [place] | [place] [address] | | | | | [address] | [phone] | | | | | [phone] | | | +--------+ + + + [...] Performed At | + + + | [id number] | | | Page 1 Diagnostic Note | | | / | | | [facility] | | | NAME: [place] [address] | | | | | | | | | DATE OF : 1980 ORDER NUMBER: [id number] EXAM | | | DATE/TIME: 03/26/2009 10:07 A ORDERING PHYSICIAN: MADYSON ONEILL | | | ORDER DETAIL: 1950 / / KUS EXAM DESCRIPTION: APW US | | | ENDOVAGINAL | | | | | | See diagnostics scanned report. A | | | A /jcOneal// cc: | | + + + + + | Procedure Note | + + | Pardeep Swanson - 04/28/2019 11:05 PM PDT | | [id number] Page 1 | | Diagnostic Note / | | APW | | [facility] NAME: NATALY BEDOYA | | [place] [address] | | | | DATE OF : 1980 | | | | ORDER NUMBER: [id number] | | EXAM DATE/TIME: 03/26/2009 10:07 A | | ORDERING PHYSICIAN: MADYSON ONEILL | | ORDER DETAIL: 1950 / / KUS | | EXAM DESCRIPTION: APW US ENDOVAGINAL | | | | See diagnostics scanned report. | | | | | | | | | | A | | A | | /rufina// | | cc: | + + documented in this encounter Visit Diagnoses Not on filedocumented in this encounter"
--- OUTSIDE RECORDS SUMMARY | ~2020-01-03 | XMS | Encounter Summary ---
Demographics + + + | Address | [address] | | | [place] [address] | + + + | Home Phone | | + + + | Preferred Language | Unknown | + + + | Marital Status | Single | + + + | Zoroastrianism Affiliation | 1013 | + + + | Race | Unknown | + + + | Ethnic Group | Unknown | + + + Author + + + | Author | [facility] | | | and [place] | + + + | Organization | [facility] [...] Providers + +------+ + | Care Search Specialist Name | Role | Phone | [...] | | | [place] | [place] [address] | | | | | | [place] | Phone: | | | | | | [address] | [phone] | | | | | | Phone: | Fax: | | | | | | [phone] | [phone] | | | | | | Fax: | | | | | | | [phone] | | + + + + + + + Encounter Details +--------+---------+ + + + | Date | Type | Department | Care Team | Description | +--------+---------+ + + + | 12/09/ | Office | [facility] | Vivien Madera MD | Foreign body in skin | | 2020 | Visit | SURGERY [address] | [address] [facility] | (Primary Dx) | | | | [facility], [place] | [place] [address] | | | | | [address] | [phone] | | | | | [phone] | | | +--------+---------+ + + + [...] in skin Entire visit was performed with interventional physician: VESTA Waldrop Physician notes: Nataly is here [...] this chart may have been created with [employer] voice recognition software. Occasi onal wrong-word or [...] body in | Ordered: 11/20/2019 | | [facility] - | Referral | e | skin [...]
--- OUTSIDE RECORDS SUMMARY | ~2020-01-03 | XMS | Encounter Summary ---
Demographics + + + | Address | [address] | | | [place] [address] | + + + | Home Phone [...] | Organization | [facility] | | | and [place] [...] Team Providers + +------+ + | Care Grab Jack Worker Name | Role | Phone | [...] Refill | | 2018 | | [facility] | [address] | | | | | [address] | [place] | | | | | [place], [place] | [address] | | | | | [address] | | | | | | [phone] | | | +--------+--------+ + + + [...]
--- OUTSIDE RECORDS SUMMARY | ~2020-01-03 | XMS | Encounter Summary ---
Demographics + + + | Address | [address] | | | [place] [address] | + + + | Home Phone | | + + + | Preferred Language | Unknown | + + + | Marital Status | Single | + + + | Scientologist Affiliation | 1013 | + + + | Race | Unknown | + + + | Ethnic Group | Unknown | + + + Author + + + | Author | [facility] | | | and [place] | + + + | Organization | [facility] | | | and [...] Team Providers + +------+ + | Care Systems Engineering Manager Name | Role | Phone | [...] [place] | | | | | | [facility] | [place], [place] | | | | | | [place], | [address] | | | | | | [place] | Phone: | | | | | | [address] | [phone] | | | | | | Phone: | | | | | | | [phone] | | | | | | | Fax: | | | | | | | [phone] | | + + + + + [...] | | | | CENTER [address] | [facility] [place] | | | | | [place], [place] | [place] [address] | | | | | [address] | [phone] | | | | | [phone] | | | +--------+ + + + [...] ibuprofen for 5 days Follow up with ALMOND BLANCHER OPERATOR AttachmentsThe following attachments cannot be sent through [...] Hemorrhagic | Ordered: 08/22/2019 | | Clinic BIODIESEL PRODUCT DEVELOPMENT MANAGER & | Referral | e | [...] [address] | [place] | [phone] | | [facility] | | [address] | | | - LABORATORY | | [...] - 1.030 | [facility] | | | [place], | | | [facility] | [...] [address] | [place] | [phone] | | [facility] | | [address] | | | - LABORATORY | | [...] | 0.59 | 0.55 - 1.02 | [facility] | | | | | mg/dL | [facility] | | | | | | MEDICAL | | | | | | CENTER - | | | | | | LABORATORY | | + + + + + + | eGFR if not | >60Comment: GLOMERULAR | >=60 | [facility] | | | | FILTRATION | mL/min/1.73m2 | [facility] | | | POLISH | RATE,ESTIMATED | | MEDICAL | | | | mL/min/1.91j2Blnn than | | CENTER - | | [...] + | [facility] | [address] | [place] | [phone] | | [facility] | | [address] | | | - LABORATORY | | [...] ranges: Trim. Absolute (K/uL) Percentage (%) | [facility] | | 1st 0.003-0.091 K/uL 0.0-0.9% 2nd 0.007-0.247 K/uL | [facility] | | 0.1-2.0% 3rd 0.018-0.456 K/uL 0.1-2.0% | - LABORATORY | + + + + + + + + | Performing | Address | City/State/Zipcode | Phone Number | | Organization | | | | + + + + + | [facility] | [address] | [place] | [phone] | | [facility] | | [address] | | | - LABORATORY | | [...] | | | | | Intravenous, ONCE, [facility] 08/22/19 | | PM PST | [...] | | | | 2335, Patient Address: [address] [place] [address] | | | | | | | [place] [address], | | | | | | + [...]
--- OUTSIDE RECORDS SUMMARY | ~2020-01-03 | XMS | Encounter Summary ---
Demographics + + + | Address | [address] | | | [place] [address] | + + + | Home Phone [...] | Organization | [facility] | | | [...] Team Providers + +------+ + | Care Linux Unix System Administrator Name | Role | Phone | + +------+ + PCP | Unavailable | + +------+ + Encounter Details +--------+ + + + + | Date | Type | Department | Care Team | Description | +--------+ + + + + | 06/11/ | [facility] | [facility] | Lizzie Olivares | | | 2009 | Encounter | MED CTR EMERGENCY | MD [address] | | | | | [place] [address] [address] | [facility], | | | | | [place] | [place] [address] | | | | | [address] | [phone] | | | | | [phone] | | | +--------+ + + + [...]
--- OUTSIDE RECORDS SUMMARY | ~2020-01-03 | XMS | Clinical Summary ---
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 | | | Please contact [facility] for any mental health concerns: Carlo | | | [phone] [place] [phone] Crisis Line [phone] These | | | are guidelines and [...] MG | | | TABLET 5 ISABELA RACHEALWANGER 4 0 2019-02-19 LORAZEPAM 0.5 MG TABLET 5 | | | SERAFIN BOWERS MD 4 0 Rx Summary Metric Count CS II-V Rx 11 | | | CS-II Rx 2 Quantity Dispensed 530 Unique Prescribers 5 Unique | | | Pharmacies 2 Benzos 8 Opioids 2 Long Acting Opioids 0 | | | E.D. Visit Count (12 mo.) Facility Visits [facility] 1 | | | [facility] 2 [facility] | | | Center 3 [facility] 11 Total 17 Note: | | | Visits indicate total known visits. Recent Emergency Department | | | Visit Summary Showing 10 most recent visits out of 18 in the past 12 | | | months Date Facility [facility] State Type Diagnoses or Chief Complaint | | | Dec 11, 2019 [facility] [place] Emergency | | | 10,800. Medication request Dec 11, 2019 [facility] and | | | [facility] [place] Emergency 10,800. Infection | | | 10,800. L Arm/Headache 18,400. Personal history of other | | | diseases of the nervous system and 18,400. Cutaneous abscess, | | | unspecified 18,400. Other stimulant abuse, uncomplicated | | | 18,400. Paresthesia of skin Dec 08, 2019 [facility] | | | [place] Emergency Spasms Other stimulant abuse, | | | uncomplicated Other problems related to lifestyle Dec 07, | | | 2019 [facility]. [place] Emergency | | | Hallucinations Other stimulant abuse, uncomplicated Apr | | | 2019 [facility]. [place] Emergency Medical | | | Complacations from alc and drug abuse Spasms Other | | | stimulant abuse, uncomplicated Dec 01, 2019 [facility] | | | [facility]. [place] Emergency CP,sob Pain Tachycardia | | | Restlessness and agitation Other stimulant use, unspecified | | | with intoxication, unspecifi Panic disorder [episodic paroxysmal | | | anxiety] Nov 20, 2019 [facility]. [place] | | | Emergency needle stuck in arm Foreign Body in Skin | | | Other injury of unspecified body region, initial encounter Mar | | | 2019 [facility] Emergency Pruritis | | | Adverse effect of unspecified drugs, medicaments and biologic | | | Pruritus, unspecified Urticaria, unspecified Nov 16, 2019 | | | [facility] Arm Injury | | | Superficial foreign body of left upper arm, initial encounter | | | Contact with needle (sewing), initial encounter Encounter for | | | immunization Nov 15, 2019 [facility]. [place] | | | Emergency FB STUCK IN ARM Other psychoactive substance | | | use, unspecified, uncomplicated Other injury of unspecified body | | | region, initial encounter Recent Inpatient Visit Summary | | | No recorded inpatient visits. Care Team Provider Specialty Phone | | | Fax Service Dates AyakakristinGiancarlo , [facility] | | | Health Worker Nov 16, 2019 - Current | | | [facility] This patient has registered at the [facility] | | | [facility] Emergency Department For more information | | | visit: | | | [email or web address] | | | [email or web address] PLEASE NOTE: 1. Any care recommendations [...] or completeness of information provided. ? 2019 [employer] | | | [employer] | | + + + + + | Procedure Note | + + | Service Account, Rtf Results Inbound - 12/11/2019 8:26 PM PDT Formatting of this | | note might be different from the original.COLLECTIVE?NOTIFICATION?12/11/2019 | | 20:25?JEAN-PAULBennyNATALY? Met 3 Facilities In 60 Days 5 Visits In 12 | | Months Has Guidelines PDMPSecurity and SafetyNo recent Security Events currently on | | fileED Care Guidelines from [facility] Updated: 12/11/19 10:08 AM Care | | Recommendation:Receiving mental health services through [facility]. Please contact | | [facility] for any mental health concerns:Carlo [phone] | | [phone] Line [phone] are guidelines and the provider should | [...] E.D. Visit Count (12 mo.)Facility Visits [facility] 1 [facility] | [facility] 2 [facility] 3 [facility] | | Center 11 Total 17 Note: Visits indicate total known visits. Recent Emergency | | Department Visit SummaryShowing 10 most recent visits out of 18 in the past 12 | | monthsDate Facility City State Type Diagnoses or Chief Complaint Dec 11, 2019 [place] | | [facility] [place] Emergency 10,800. Medication request Dec 10, | | 2019 [facility] [place] Emergency 10,800. Infection | | 10,800. L Arm/Headache 18,400. Personal history of other diseases of the nervous | | system and 18,400. Cutaneous abscess, unspecified 18,400. Other stimulant abuse, | | uncomplicated 18,400. Paresthesia of skin [facility] | | Emergency Spasms Other stimulant abuse, uncomplicated Other problems related | | to lifestyle Dec 08, 2019 [facility]. [place] Emergency Hallucinations | | Other stimulant abuse, uncomplicated Dec 06, 2019 [facility] | | Emergency Medical Complacations from alc and drug abuse Spasms Other stimulant | | abuse, uncomplicated Dec 01, 2019 [facility]. [place] Emergency | | CP,sob Pain Tachycardia Restlessness and agitation Other stimulant use, | | unspecified with intoxication, unspecifi Panic disorder [episodic paroxysmal anxiety] | | Nov 20, 2019 [facility]. [place] Emergency needle stuck in arm | | Foreign Body in Skin Other injury of unspecified body region, initial encounter Nov | | [facility] Pruritis Adverse effect of | | unspecified drugs, medicaments and biologic Pruritus, unspecified Urticaria, | | unspecified Nov 16, 2019 [facility] Arm Injury | | Superficial foreign [...] Service Dates Giancarlo Quarles -, [facility] | | Worker Nov 16, 2019 - Current [employer] patient has | | registered at the [facility] Emergency Department For more | | information visit: | | [email or web address] PLEASE | | NOTE: 1. Any care [...] to the | | limitations of applicable [facility] [employer] Policies. 3. You should consult directly with | | the organization that provided a care guideline or other clinical history with any | | questions about additional information or accuracy or completeness of information | | provided.? 2020 [employer]. - [email or web address] | |[facility] 3 | |[facility] 11 | |Total 17 | |Note: Visits indicate total known visits. | | | |Recent Emergency Department Visit Summary | |Showing 10 most recent visits out of 18 in the past 12 months | |Date Facility City State Type Diagnoses or Chief Complaint | |Dec 11, 2019 [facility] [place] Emergency | | 10,800. Medication request | | | |Dec 11, 2019 [facility] [place] Emergency | | 10,800. Infection | | 10,800. L Arm/Headache | | 18,400. Personal history of other diseases of the nervous system and | | 18,400. Cutaneous abscess, unspecified | | 18,400. Other stimulant abuse, uncomplicated | | 18,400. Paresthesia of skin | | | |Dec 08, 2019 [facility] [place]. [place] Emergency | | Spasms | | Other stimulant abuse, uncomplicated | | Other problems related to lifestyle | | | |Dec 08, 2019 [facility]. [place] Emergency | | Hallucinations | | Other stimulant abuse, uncomplicated | | | |Dec 06, 2019 [facility]. [place] Emergency | | Medical Complacations from alc and drug abuse | | Spasms | | Other stimulant abuse, uncomplicated | | | |Dec 01, 2019 [facility]. [place] Emergency | | CP,sob | | Pain | | Tachycardia | | Restlessness and agitation | | Other stimulant use, unspecified with intoxication, unspecifi | | Panic disorder [episodic paroxysmal anxiety] | | | |Nov 20, 2019 [facility]. [place] Emergency | | needle stuck in arm | | Foreign Body in Skin | | Other injury of unspecified body region, initial encounter | | | |Nov 16, 2019 [facility] Emergency | | Pruritis | | Adverse effect of unspecified drugs, medicaments and biologic | | Pruritus, unspecified | | Urticaria, unspecified | | | |Nov 16, 2019 [facility] Emergency | | Arm Injury | | Superficial foreign body of left upper arm, initial encounter | | Contact with needle (sewing), initial encounter | | Encounter for immunization | | | |Nov 15, 2019 [facility]. [place] Emergency | | FB STUCK IN ARM | | Other psychoactive substance use, unspecified, uncomplicated | | Other injury of unspecified body region, initial encounter | | | | | | | |Recent Inpatient Visit Summary | |No recorded inpatient visits. | | | |Care Team | |Provider Specialty Phone Fax Service Dates | |Giancarlo Quarles - [facility] Community Health Worker Nov 16, 2019 - C cony | | | |[facility] [employer] [facility] | |This patient has registered at the [facility] Depart[facility] t | |For more information visit: [email or web address] | |PLEASE NOTE: | | 1. Any [...] information provided. | | | |? 2020 [employer]. - [email or web address] | + + + + + + + | Performing | Address | City/State/Zipcode | Phone Number | | Organization | | | | + + + + + | [facility] | [address] | [place], [place] | [phone] | | [employer] | [address] | [address] | | + + + + + [...] | | | + +--------+ +--------+-------+---------+--------+ | RETAIL TEAM MEMBER MEDICAID | RETAIL TEAM MEMBER | [id number] | | | | Medica [...] | | al/Fam | | 1980 | [phone] | [place] | | | lew | | | 5 (Home) | [address] | + +--------+ +--------+ + +
--- OUTSIDE RECORDS SUMMARY | ~2020-01-03 | XMS | Encounter Summary ---
Demographics + + + | Address | [address] | | | [place] [address] | + + + | Home Phone [...] + + + | Organization | and [facility] | [...] Team Providers + +------+ + | Care Doll Eye Setter Name | Role | Phone | + [...] + + | 11/15/ | Emergency | [facility] | Osiel Barreto, | Injury due to | | 2019 | | MEDICAL CENTER | MD [address] | non-hypodermic | | | | EMERGENCY CENTER | [place] [address] | needle (Primary Dx); | | | | [address] | [phone] | Metal foreign body | | | | [place], [place] | | in upper extremity, | | | | [address] | | left, initial | | | | [phone] | | encounter; | | | | [...] Everywhere.Foreign Body, S oft Tissue (Not Removed) ([place] Islander)documented in this encounter Medications at Time [...] J?MRN: | | | | | | [id number] | | | [id number] | | | riteri | | | [...] | +---+---+ + +-------+ +---------+---+ + | [id number]-[id number] | Given | 11/16/19 | 0.5 mLs [...]
--- OUTSIDE RECORDS SUMMARY | ~2020-01-03 | XMS | Encounter Summary ---
Demographics + + + | Address | [address] | | | [place] [address] | + + + | Home Phone | | + + + | Preferred Language | Unknown | + + + | Marital Status | Single | + + + | Orthodox Affiliation | 1013 | + + + | Race | Unknown | + + + | Ethnic Group | Unknown | + + + Author + + + | Author | [facility] | | | and [place] | + + + | Organization | [facility] | | | and [...] Team Providers + +------+ + | Care Missile Technician Name | Role | Phone | [...] | 06/25/ | Telephone | [facility] | Katy Sanford MD | Results | | 2018 | | MEDICINE [place] | [address] | | | | | [address] | [place] | | | | | [place] | [address] | | | | | [address] | | | | | | [phone] | | | +--------+ + + + [...]
--- OUTSIDE RECORDS SUMMARY | ~2020-01-03 | XMS | Encounter Summary ---
Demographics + + + | Address | [address] | | | [place] [address] | + + + | Home Phone | | + + + | Preferred Language | Unknown | + + + | Marital Status | Single | + + + | Presybeterian Affiliation | 1013 | + + + | Race | Unknown | + + + | Ethnic Group | Unknown | + + + Author + + + | Author | [facility] | | | and [place] | + + + | Organization | [facility] | | | and [place] [...] Team Providers + +------+ + | Care Extruding Department Supervisor Name | Role | Phone | + +------+ + PCP | Unavailable | + +------+ + Encounter Details +--------+ + + + + | Date | Type | Department | Care Team | Description | +--------+ + + + + | 01/11/ | Hospital | [facility] | | | | 2009 | Encounter | MED CTR EMERGENCY | | | | | | CENTER [address] | | | | | | [place] | | | | | | [address] | | | | | | [phone] | | | +--------+ + + + [...]
--- OUTSIDE RECORDS SUMMARY | ~2020-01-03 | XMS | Encounter Summary ---
Demographics + + + | Address | [address] | | | [place] [address] | + + + | Home Phone [...] + + + | Organization | and [facility] | | [...] Providers + +------+ + | Care Business Development Agent Name | Role | Phone | [...] + | 03/12/ | Telephone | [facility] | Katy Sanford MD | Annual Exam | | 2019 | | MEDICINE [place] | [address] | | | | | [address] | [place] | | | | | [place] | [address] | | | | | [address] | | | | | | [phone] | | | +--------+ + + + [...]
--- OUTSIDE RECORDS SUMMARY | ~2020-01-03 | XMS | Encounter Summary ---
Demographics + + + | Address | [address] | | | [place] [address] | + + + | Home Phone [...] Organization | [facility] | [...] Team Providers + +------+ + | Care Morphologist Name | Role | Phone | + +------+ + PCP | Unavailable | + +------+ + Encounter Details +--------+ + + + + | Date | Type | Department | Care Team | Description | +--------+ + + + + | 06/11/ | [facility] | [facility] | Lizzie Olivares | | | 2009 | Encounter | MED CTR EMERGENCY | MD [address] | | | | | [place] [address] | [facility], | | | | | [place] | [place] [address] | | | | | [address] | [phone] | | | | | [phone] | | | +--------+ + + + [...]
--- OUTSIDE RECORDS SUMMARY | ~2020-01-03 | XMS | Encounter Summary ---
Demographics + + + | Address | [address] | | | [place] [address] | + + + | Home Phone | | + + + | Preferred Language | Unknown | + + + | Marital Status | Single | + + + | Muslim Affiliation | 1013 | + + + | Race | Unknown | + + + | Ethnic Group | Unknown | + + + Author + + + | Author | [facility] | | | and [place] | + + + | Organization | [facility] | | [...] Team Providers + +------+ + | Care Physician Interventional Cardiologist Name | Role | Phone | + [...] Refill | | 2018 | | MEDICINE [place] | [address] | | | | | [address] | [place] | | | | | [place], [place] | [address] | | | | | [address] | | | | | | [phone] | | | +--------+--------+ + + + [...]
--- OUTSIDE RECORDS SUMMARY | ~2020-01-03 | XMS | Encounter Summary ---
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
--- OUTSIDE RECORDS SUMMARY | ~2020-01-03 | XMS | Encounter Summary ---
Demographics + + + | Address | [address] | | | [place] [address] | + + + | Home Phone [...] | Organization | [facility] | [...] Providers + +------+ + | Care Director Of Admissions Name | Role | Phone | + +------+ + PCP | Unavailable | + +------+ + Encounter Details +--------+ + + + + | Date | Type | Department | Care Team | Description | +--------+ + + + + | 06/22/ | Hospital | [facility] | Provider Not, In | Encounter for | | 2015 | Encounter | [address] | System [place]da | supervision of | | | | [place], [place] | Health and Service | normal in | | | | [address] | | second trimester | | | | [phone] | | | +--------+ + + + [...] OBSTETRIC ULTRASOUND 06/22/2015 4:05 PM (PERFORMED AT [facility] | | | [facility]) CLINICAL HISTORY: Encounter for supervision of [...]
--- OUTSIDE RECORDS SUMMARY | ~2020-01-03 | XMS | Encounter Summary ---
Demographics + + + | Address | [address] | | | [place] [address] | + + + | Home Phone | | + + + | Preferred Language | Unknown | + + + | Marital Status | Single | + + + | Zoroastrianism Affiliation | 1013 | + + + | Race | Unknown | + + + | Ethnic Group | Unknown | + + + Author + + + | Author | [facility] | | | and [place] | + + + | Organization | [facility] | [...] Providers + +------+ + | Care Facilities Supervisor Name | Role | Phone | [...] + + | 11/15/ | Emergency | [facility] | Tomy Varner, | Medication reaction, | | 2019 | | [facility] | PA-Mickie [address] | initial encounter | | | | EMERGENCY CENTER | [place] [address] | (Primary Dx); | | | | [address] | [phone] | Urticaria; Pruritus | | | | [place], [place] | | | | | | [address] | Osiel Barreto, | | | | | [phone] | MD [address] | | | | | | [place] [address] | | | | | | [phone] | | +--------+ + + + + [...] be sent through Care Everywhere.Hives (Adult) ( Fijian)Drug Reaction, Other (Fijian)documented in this encounter Medications at Time of [...]
--- OUTSIDE RECORDS SUMMARY | ~2020-01-03 | XMS | Encounter Summary ---
Demographics + + + | Address | [address] | | | [place] [address] | + + + | Home Phone [...] Organization | [facility] | | [...] Team Providers + +------+ + | Care Merchandising Stock Associate Name | Role | Phone | [...] + + | 10/26/ | Hospital | [facility] | Edi Sprague | | | 2016 | Encounter | MED CTR LABOR AND | MD [address] | | | | | DELIVERY [address] | [place] | | | | | [place], | [address] | | | | | [place] [address] | | | | | | [phone] | | | +--------+ + + + [...] tomorrow with Dr. Sprague Call physician or valve and regulator repairer's office for instructions if symptoms worsen.. Discharge [...] swishes, or rolls. Call your physician or valve and regulator repairer if there have not been 10 kicks in 1.5 hours Call physician or valve and regulator repairer, return to Labor and Delivery, call 911, or go to the nearest [facility] Room if: increased leakage or [...] Nicci Pederson RN - 10/26/2015 12:00 PM [id number] PT here with complaints of decreased fe orquidea movement and contractions since 629. She reports being checked last week and was 1 cm, 70%. Her cervix has not changed with today's SVE, still 1 cm & 70%. Pt reports uterine c ontractions, but is talking through them and they palpate mild. [place] is not tracing a uterin e contraction [...]
--- OUTSIDE RECORDS SUMMARY | ~2020-01-03 | XMS | Encounter Summary ---
Demographics + + + | Address | [address] | | | [place] [address] | + + + | Home Phone | | + + + | Preferred Language | Unknown | + + + | Marital Status | Single | + + + | Baptism Affiliation | 1013 | + + + | Race | Unknown | + + + | Ethnic Group | Unknown | + + + Author + + + | Author | [facility] | | | and [place] | + + + | Organization | [facility] | [...] Team Providers + +------+ + | Care Airline Lounge Receptionist Name | Role | Phone | + [...] + + | 07/02/ | Telephone | [facility] | Antonia Goyal | ED Follow-up (ED | | 2019 | | MED CTR CASE | [phone] | follow up call to | | | | MANAGEMENT [address] | | offer PCP | | | | [place], | | assistance) | | | | [place] [address] | | | | | | [phone] | | | +--------+ + + + [...]
--- OUTSIDE RECORDS SUMMARY | ~2020-01-03 | XMS | Encounter Summary ---
Demographics + + + | Address | [address] | | | [place] [address] | + + + | Home Phone [...] | Organization | [facility] | [...] Team Providers + +------+ + | Care Zoo Veterinarian Name | Role | Phone | + [...] Refill | | 2019 | | MEDICINE [place] | [address] | | | | | [address] | [place] | | | | | [place], [place] | [address] | | | | | [address] | | | | | | [phone] | | | +--------+--------+ + + + [...]
--- OUTSIDE RECORDS SUMMARY | ~2020-01-03 | XMS | Encounter Summary ---
Demographics + + + | Address | [address] | | | [place] [address] | + + + | Home Phone [...] + + | Author | [facility] | | | and [place] | + + + | Organization | 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
--- OUTSIDE RECORDS SUMMARY | ~2020-01-03 | XMS | Encounter Summary ---
Demographics + + + | Address | [address] | | | [place] [address] | + + + | Home Phone [...] | Organization | [facility] | | | and [...] Providers + +------+ + | Care Fruit Harvester Machine Operator Name | Role | Phone | + +------+ + PCP | Unavailable | + +------+ + Encounter Details +--------+ + + + + | Date | Type | Department | Care Team | Description | +--------+ + + + + | 11/08/ | [facility] | [facility] | Edi Sprague | | | 2010 | Encounter | MED CTR MP INTRA OP | F, MD [address] | | | | | [address] | [place] | | | | | [place] | [address] | | | | | [address] | | | | | | [phone] | | | +--------+ + + + [...] [address] | [place] | [phone] | | [facility] | | [address] | | | - LABORATORY | | | | + + + + + | YULIANA SANDOVAL. | [address] | [place], [place] | | | [facility] | | [address] [place] [address] | | | - LABORATORY | | | | + + + + + documented in this encounter Visit Diagnoses Not on filedocumented in this encounter"
--- OUTSIDE RECORDS SUMMARY | ~2020-01-03 | XMS | Encounter Summary ---
Demographics + + + | Address | [address] | | | [place] [address] | + + + | Home Phone [...] | Organization | [facility] | | | and [...] Team Providers + +------+ + | Care Automotive Sales Professional Name | Role | Phone | + [...] + + | 01/08/ | Emergency | [facility] | Lorena Oakley | Nonintractable | | 2019 | | MED CTR EMERGENCY | MD [address] | episodic headache, | | | | CENTER [address] | [address] [place], | unspecified headache | | | | [place] | [place] [address] | type (Primary Dx) | | | | [address] | [phone] | | | | | [phone] | | | +--------+ + + + [...] be sent through Care Everywhere.Headache, Unspe cified (Citizen [place])documented in this encounter Medications at Time of [...]
--- OUTSIDE RECORDS SUMMARY | ~2020-01-03 | XMS | Encounter Summary ---
Demographics + + + | Address | [address] | | | [place] [address] | + + + | Home Phone [...] | [facility] | | | and [...] Providers + +------+ + | Care Wood Boat Builder Supervisor Name | Role | Phone | [...] + + | 07/29/ | Hospital | [facility] | Becky York | | | 2015 | Encounter | MED CTR [facility] | Ngoc Steen DO | | | | | [address] | [address] | | | | | [place], [place] | [place], [place] | | | | | [address] | [address] | | | | | [phone] | | | +--------+ + + + [...] MD | | | | | | ([id number]) on 07/30/2015 | | | | | [...] [address] | [place] | [phone] | | [facility] | | [address] | | | - LABORATORY | | [...] | | | marisel (multiple | | [facility] | | | | morphologies | [...] | [address] | [place] | [phone] | | [facility] | | [address] | | | - LABORATORY | | [...] - 1.030 | [facility] | | | [place], | | | [facility] | | [...] [address] | [place] | [phone] | | [facility] | | [address] | | | - LABORATORY | | | | + + + + + documented in this encounter Visit Diagnoses Not on filedocumented in this encounter"
--- OUTSIDE RECORDS SUMMARY | ~2020-01-03 | XMS | Encounter Summary ---
Demographics + + + | Address | [address] | | | [place] [address] | + + + | Home Phone [...] + | Organization | [facility] | | [...] Team Providers + +------+ + | Care Banking Center Manager Name | Role | Phone | [...] + + | 06/21/ | Telephone | [facility] | Katy Sanford MD | Other (Son diagnosed | | 2018 | | MEDICINE [facility] | [address] | with pertussis. ) | | | | [address] | [place] | | | | | [place], [place] | [address] | | | | | [address] | | | | | | [phone] | | | +--------+ + + + [...]
--- OUTSIDE RECORDS SUMMARY | ~2020-01-03 | XMS | Encounter Summary ---
Demographics + + + | Address | [address] | | | [place] [address] | + + + | Home Phone [...] + | Organization | [facility] | | | and [place] [...] Team Providers + +------+ + | Care Juke Box Mechanic Name | Role | Phone | [...] + + | 07/02/ | Telephone | [facility] | Antonia Goyal | ED Follow-up (ED | | 2019 | | MED CTR CASE | [phone] | follow up call to | | | | MANAGEMENT [address] | | offer PCP | | | | [place], | | assistance) | | | | [place] [address] | | | | | | [phone] | | | +--------+ + + + [...]
--- OUTSIDE RECORDS SUMMARY | ~2020-01-03 | XMS | Encounter Summary ---
Demographics + + + | Address | [address] | | | [place] [address] | + + + | Home Phone [...] Organization | [facility] | | [...] Providers + +------+ + | Care Supervisor Liquefaction Name | Role | Phone | + [...] aura and | | | | [place] | [address] | without status | | | | [address] | [place] | migrainosus (Primary | | | | [phone] | [address] | Dx) | | | | | [...] headaches in a woman Date Last Reviewed: 09/04/201719990941-6762 [employer]. [address] [place] [address]. All righ ts reserved. This information is [...] its pattern. This note was dictated using [employer] voice recognition software. Occasional wrong- word or [...]
--- OUTSIDE RECORDS SUMMARY | ~2020-01-03 | XMS | Encounter Summary ---
Demographics + + + | Address | [address] | | | [place] [address] | + + + | Home Phone [...] Organization | [facility] | | | and [...] Team Providers + +------+ + | Care Pickers Material Handlers Name | Role | Phone | + [...] | | | | | with | [address] | [place] [address] | | | | | cervical rib | Phone: | Phone: | | | | | | [phone] | [phone] | | | | | | Fax: | Fax: | | | | | | [phone] | [phone] | +--------+ + + + + + Encounter Details +--------+---------+ + + + | Date | Type | Department | Care Team | Description | +--------+---------+ + + + | 10/11/ | Office | [facility] | Liv Pang | 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, 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 | | | | [place] | [address] | (Primary Dx) | | | | [address] | | | | | | [phone] | | | +--------+---------+ + + + [...] 3 Status: 0 Treatment Plan/Interventions PT EvaluationPT Re-[id number] - Therapeutic Dmfdszqn60671 - Neuromuscular Reeducation9 7530 - Therapeutic Tfbenpimxk39162 - Manual Rmkohgh99419 - Self Care/Home Ljvgzkijwe49608 - Group Therapeutic Qbkrtveeya43757 - Aquatic Therapy/Dqtunzpez53993 - Electrical Stimulation, Attended Electronically signed by: Liv Pang PT, 10/15/2018 9:05 Patient Name: Nataly Martinez/: 1980/ Liv Kowalski P T - 10/11/2018 10:00 AM PST [facility] [address] [place] [address] Physical Therapy Initial Cervical Spine Assessment Date: [...] that 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 She carried her delinquent tax collection assistant tray on with the left arm. She [...] 4 4 Finger ABD (T1): 4 4 Linux Systems Administrator Strength: Nt Nt Deep Neck Flexors: (normal [...] Certification To: 12/07/2018 Treatment Plan/Interventions PT EvaluationPT Re-Fnkhtjegrv24430 - Therapeutic Adryzjmb41712 - Neuromuscular Reeducation9 7530 - Therapeutic Whdwhbnsvw46115 - Manual Wtnbwaj89651 - Self Care/Home Mhadycglki82502 - Group Therapeutic Wxkcilolge93405 - Aquatic Therapy/Ltnmwqoue15090 - Electrical Stimulation, Attended Patient and/or family [...]
--- OUTSIDE RECORDS SUMMARY | ~2020-01-03 | XMS | Encounter Summary ---
Demographics + + + | Address | [address] | | | [place] [address] | + + + | Home Phone [...] Organization | [facility] [...] Team Providers + +------+ + | Care Nuclear Equipment Operator Name | Role | Phone | + +------+ + | Phi Singh NP | PCP | | + +------+ + Encounter Details +--------+ + + + + | Date | Type | Department | Care Team | Description | +--------+ + + + + | 09/21/ | [facility] | [facility] | Phi Singh | Cervical radicular | | 2018 | Encounter | MED CTR XRAY [address] | [place]uce, SPINNING LATHE OPERATOR [address] | pain | | | | [place] | [place] [place] [address], | | | | | [place] [address] | [address], | | | | | [phone] | [place] [address] | | | | | | [phone] | | | | | | | [...]
--- OUTSIDE RECORDS SUMMARY | ~2020-01-03 | XMS | Encounter Summary ---
Demographics + + + | Address | [address] | | | [place] [address] | + + + | Home Phone [...] Organization | [facility] | | | [...] Team Providers + +------+ + | Care New Order Clerk Name | Role | Phone | [...] Appointment | | 2019 | | [facility] | Aide | | | | | THERAPY [address] | | | | | | [address] [place] | | | | | | [address] | | | | | | [phone] | | | +--------+ + + + [...]
--- OUTSIDE RECORDS SUMMARY | ~2020-01-03 | XMS | Encounter Summary ---
Demographics + + + | Address | [address] | | | [place] [address] | + + + | Home Phone | | + + + | Preferred Language | Unknown | + + + | Marital Status | Single | + + + | Rastafarian Affiliation | 1013 | + + + | Race | Unknown | + + + | Ethnic Group | Unknown | + + + Author + + + | Author | [facility] | | | and [place] | + + + | Organization | [facility] | | | and [place] [...] Providers + +------+ + | Care Vp Construction Name | Role | Phone | + [...] | | | [address] [place] | [place] [address] | | | | | | [place], [place] | Phone: | | | | | | [address] | [phone] | | | | | | Phone: | Fax: | | | | | | [phone] | [phone] | | | | | | Fax: | | | | | | | [phone] | | + + + + + [...] | | | | CENTER [address] | [address] [place] | | | | | [place], [place] | [place] [address] | | | | | [address] | [phone] | | | | | [phone] | | | +--------+ + + + [...] Everywhere.Foreign Body, S oft Tissue (Not Removed) (Hungarian)documented in this encounter Medications at Time of [...] body in | Ordered: 11/20/2019 | | [facility] - | Referral | e | [...] J?MRN: | | | | | | [id number] | | | [id number] | | | riteri | | | [...] | | | otify/ | | | [id number] | | | 3d-f7d | | | [...]
--- OUTSIDE RECORDS SUMMARY | ~2020-01-03 | XMS | Encounter Summary ---
Demographics + + + | Address | [address] | | | [place] [address] | + + + | Home Phone [...] | Organization | [facility] [...] Team Providers + +------+ + | Care Examining Chair Assembler Name | Role | Phone | + +------+ + | Katy Sanford MD | PCP | | + +------+ + Reason for Visit +--------+ + | Reason | Comments | +--------+ + | Cough | rm 7/ cold symptoms, migaines ongoing, x 7 days | +--------+ + Encounter Details +--------+---------+ + + + | Date | Type | Department | Care Team | Description | +--------+---------+ + + + | 12/25/ | Office | [facility] | Jim Buckner | Migraine without | | 2019 | Visit | CARE [address] | B, DO [address] | status migrainosus, | | | | [place] | [address] [place] | not intractable, | | | | [phone] | [id number] | unspecified migraine | | | | [phone] | | type (Primary Dx); | | | | | | Viral URI with cough | +--------+---------+ + + + Social History [...] + + + | Blood Pressure | 110/73 | 12/25/2018 12:59 PM | | | | | PDT | | + + + + + | Pulse | 97 | 12/25/2018 12:59 PM | | | | | PDT | | + + + + + | Temperature | 37 C (98.6 F) | 12/25/2018 12:59 PM | | | | | PDT | | + + + + + | Respiratory Rate | 20 | 12/25/2018 12:59 PM | | | | | PDT | | + + + + + | Oxygen Saturation | 100% | 12/25/2018 12:59 PM | | | | | PDT | | + + + + + | Inhaled Oxygen | - | - | | | Concentration | | | | + + + + + | Weight | 57.4 kg (126 lb 8.7 | 12/25/2018 12:59 PM | | | | oz) | PDT | | + + + + + | Height | 152.4 cm (5') | 12/25/2018 12:59 PM | | | | | PDT | | + + + + + | Body Mass Index | 24.71 | 12/25/2018 12:59 PM | | | | | PDT | | + + + + + documented in this encounter Patient Instructions Patient Instructions AnanyaJim storm Martinez, DO - 12/25/2018 12:15 PM PDTFormatting of this no te might be different from the original. Preventing Common Respiratory Infections Respiratory infections such as colds and influenza ( the flu ) are common in winter. Th jf infections are often caused by viruses. They may share some symptoms, but not all respir atory infections are the same. Some make you more sick than others. You can take steps to pr event common respiratory infections. And if you get sick, you can take care of yourself to k eep the infection from getting worse. What is a cold? Symptoms include runny nose, coughing and sneezing, and sore throat. Cold symptoms tend to be milder than flu symptoms. Symptoms tend to come on slowly. They last for a few days to about a week. With a cold, you can still do most of the things you usually do. What is the flu? Symptoms include fever, headache, fatigue, cough, sore throat, runny nose, and muscle ac hes. Children may have upset stomach and vomiting, but adults usually don t. Symptoms tend to come on quickly. Some, such as fatigue and cough, can last a few weeks. With the flu, you may feel worn out and not able to do normal activities. It s most likely NOT the flu if an adult has vomiting or diarrhea for a day or two. Th is so-called stomach flu is probably a GI (gastrointestinal) infection. When the infection gets worse Without proper care, a respiratory infection can get worse. It can lead to serious complica tions and . If you aren t getting better, call your healthcare provider. Complication s can include: Bronchitis (infection of the airways that leads to shortness of breath and coughing up t hick yellow or green mucus) Pneumonia (infection of the lungs in which fluid and mucus settle in the lungs, making b reathing difficult) Worsening of chronic conditions such as heart failure, chronic lung disease, asthma, or diabetes Severe dehydration (loss of fluids) Sinus problems Ear infections Get a flu vaccine A fluvaccine protects you from influenza (but not other colds or infections). Get a vacci ne each fall, before flu season starts. This can be done at a clinic, healthcare provider s office, drugstore, senior center, or through your workplace. Get pneumococcal vaccines Pneumonia can be a complication of influenza. There are 2 pneumococcal pneumonia vaccines t hat protect against many types of pneumonia. Talk with your healthcare provider about these important vaccines. Keep germs from spreading No one likes getting sick. To protect yourself and others from cold and flu germs: Wash your hands often. Use alcohol-based hand sterile process coordinator when you don t have access to soap and water. Don t touch your eyes, nose, and mouth. This may help you keep germs out of your body. Try to avoid people with respiratory infections. You may want to stay out of crowds duri ng flu season (winter). Ask your healthcare provider if you should get a pneumonia vaccination. How to wash your hands Use warm water and plenty of soap. Work up a good lather. Clean your whole hand, under your nails, between your fingers, and up your wrists. Wash for at least 15 to 20 seconds. Don t just wipe rub well. Rinse. Let the water run down your fingertips, not up your wrists. In a public restroom, use a paper towel to turn off the faucet and open the door. Date Last Reviewed: 08/04/201619994015-[address] [employer] [place] [address], [place] [address]. All righ ts reserved. This information is not intended as a substitute for professional medical care. Always follow your healthcare professional's instructions. Viral Upper Respiratory Illness (Adult) You have a viral upper respiratory illness (URI), which is another term for the common cold . This illness is contagious during the first few days. It is spread through the air by coug aldair and sneezing. It may also be spread by direct contact (touching the sick person and the n touching your own eyes, nose, or mouth). Frequent handwashing will decrease risk of spread . Most viral illnesses go away within 7 to 10 days with rest and simple home remedies. Somet imes the illness may last for several weeks. Antibiotics will not kill a virus, and they are generally not prescribed for this condition. Home care If symptoms are severe, rest at home for the first 2 to 3 days. When you resume activity , don't let yourself get too tired. Don't smoke. If you need help stopping, talk with your healthcare provider. Avoid being exposed to cigarette smoke (yours or others ). You may use acetaminophen or ibuprofen to control pain and fever, unless another medicin e was prescribed.If you have chronic liver or kidney disease, have ever had a stomach ulce r or gastrointestinal bleeding, or are taking blood-thinning medicines, talk with your healt hcare provider before using these medicines. Aspirin should never be given to anyone under 1 8 years of age who is ill with a viral infection or fever. It may cause severe liver or brai n damage. Your appetite may be poor, so a light diet is fine. Stay well hydrated by drinking 6 to 8 glasses of fluids per day (water, soft drinks, juices, tea, or soup). Extra fluids will he lp loosen secretions in the nose and lungs. Kowr-lhw-rgdxysw cold medicines will not shorten the length of time you re sick, but t hey may be helpful for the following symptoms: cough, sore throat, and nasal and sinus conge stion. If you take prescription medicines, ask your healthcare provider or pharmacist which eqfa-otc-mmlqmqp medicines are safe to use. (Note: Don't use decongestants if you have high blood pressure.) Follow-up care Follow up with your healthcare provider, or as advised. When to seek medical advice Call your healthcare provider right away if any of these occur: Cough with lots of colored sputum (mucus) Severe headache; face, neck, or ear pain Difficultyswallowingdue to throat pain Fever of 100.4F (38C) or higher, or as directed by your healthcare provider Call 911 Call 911 if any of these occur: Chest pain, shortness of breath, wheezing, or difficulty breathing Coughing up blood Very severe pain with swallowing, especially if it goes along with a muffled voice Date Last Reviewed: 02/02/201819998725-2753 [employer]. [address] [place] [address], [place] [address]. All righ ts reserved. This information is not intended as a substitute for professional medical care. Always follow your healthcare professional's instructions. documented in this encounter Progress Notes Jim Buckner DO - 12/25/2018 12:15 PM PDT Subjective: Chief Complaint: Cough (rm 7/ cold symptoms, migaines ongoing, x 7 days) HPI 38-year-old female presents to the urgent care with cough, nasal congestion, postnasal drip since last . She states that she has multiple sick contacts with the same symptoms at home, to include her children. She denies any fever, rashes or recent travel. She curr ently does not have a primary care provider she is being changed from Dr. Rader's, to [facility]. Her first visit at the new provider is on 15 Jan 2019. She denies having any fever, rashes or recent travel. She slightly nauseated without any vomiting. Positive sic k contacts at home. She is not having any GI or complaints today. She is also complaini ng of one of her typical migraine headaches that she thinks is related to her sinus pressure . States that this is not the worst headache of her life was not thunderclap in presentatio n. She does not have any focal or lateralizing signs. She is speaking in full clear senten mimi without any facial droop or slurring of her words. Patient does not appear to be toxic, does not appear to be in any acute distress smiling during my exam. She was fully ambulato ry into the clinic with a normal gait. She is not having any cervical pain or limited range of motion thoracic or lumbar back pain. She has tried some cibe-whn-yoejwrw preparations a t home to include DayQuil, Flonase, Zicam with little relief from her symptoms. Patient's medications, allergies, past medical, surgical, social and family histories were reviewed and updated as appropriate. Review of Systems Constitutional: Negative for chills and fever. HENT: Positive for congestion, sinus pain and sore throat. Negative for hearing loss. Eyes: Negative for blurred vision and double vision. Respiratory: Positive for cough and sputum production. Negative for shortness of breath and wheezing. Cardiovascular: Negative for chest pain. Gastrointestinal: Negative for abdominal pain, nausea and vomiting. Genitourinary: Negative for dysuria. Musculoskeletal: Negative for myalgias. Neurological: Positive for headaches. Negative for dizziness, sensory change, speech change , focal weakness and loss of consciousness. Objective: BP 110/73 | Pulse 97 | Temp 37 C (98.6 F) (Temporal) | Resp 20 | Ht 1.524 m (5') | Wt 57.4 kg (126 lb 8.7 oz) | SpO2 100% | BMI 24.71 kg/m Physical Exam Constitutional: She is oriented to person, place, and time. She appears well-developed. HENT: Right Ear: External ear normal. Left Ear: External ear normal. Mouth/Throat: Oropharynx is clear and moist. Eyes: Pupils are equal, round, and reactive to light. EOM are normal. Neck: Normal range of motion. Neck supple. Cardiovascular: Normal heart sounds. Pulmonary/Chest: Effort normal and breath sounds normal. Abdominal: Soft. Musculoskeletal: Normal range of motion. Neurological: She is alert and oriented to person, place, and time. Skin: Skin is warm. No rash noted. Assessment and Plans: Viral URI with cough: We will have her use Mucinex D from the pharmacy we'll also prescribe Tessalon Perles and p romethazine with codeine. Can increase her fluids, take Tylenol or Motrin as needed for ach es and pains. Patient agrees with this decision making and says everyone is sick in her erika se. Migraine headache: He usually takes baclofen 20 mg twice a day for her chronic headaches, states that she has run out and cannot get in to see her primary care until 15 Jan 2019. Will prescribe this me dication for her in a 30 day dose. She will follow-up with her new primary care as soon as possible. We discussed the fact that the urgent care was not a place for chronic pain medic ations. Is happy with this decision making, fully ambulatory to door smiling. To be in no acute distress. She agreed with this shared medical decision making. This note or portions of this note have been dictated using [employer] oftware. It will be reviewed for major content but may contain mistakes due to difficulties with voice recognition software. documented in thi s encounter Plan of Treatment Not on filedocumented as of this encounter Visit Diagnoses + + | Diagnosis | + + | Migraine without status migrainosus, not intractable, unspecified migraine type - | | Primary | + + | Viral URI with cough Acute upper respiratory infections of unspecified site | + + documented in this encounter"
--- OUTSIDE RECORDS SUMMARY | ~2020-01-03 | XMS | Encounter Summary ---
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 Date Last Reviewed: 02/02/201719996069-0159 [employer]. [address] [place] [address], [place] [address]. All righ ts reserved. This information is [...] little reluctantly. This note was dictated using [employer] voice recognition software. Occasional wrong- word or [...]
--- OUTSIDE RECORDS SUMMARY | ~2020-01-03 | XMS | Encounter Summary ---
Demographics + + + | Address | [address] | | | [place] [address] | + + + | Home Phone [...] | Organization | [facility] | | | and [place] [...] Team Providers + +------+ + | Care Magazine Keeper Name | Role | Phone | + [...] + | 04/26/ | Patient | [facility] | Katy Sanford MD | PHST Preventative | | 2019 | Outreach | [facility] [place] | [address] | Screening | | | | [address] | [place] | | | | | [place], [place] | [address] | | | | | [address] | | | | | | [phone] | | | +--------+ + + + [...]
--- OUTSIDE RECORDS SUMMARY | ~2020-01-03 | XMS | Encounter Summary ---
Demographics + + + | Address | [address] | | | [place] [address] | + + + | Home Phone [...] | Organization | [facility] [...] Team Providers + +------+ + | Care Jewel Waxer Name | Role | Phone | + [...] + + | 12/06/ | [facility] | [facility] | Antonia Goyal | ED Follow-up | | 2019 | | MED CTR CASE | [phone] | (amphetamine abuse) | | | | MANAGEMENT [address] | | | | | | [place], | | | | | | [place] [address] | | | | | | [phone] | | | +--------+ + + + [...]
--- OUTSIDE RECORDS SUMMARY | ~2020-01-03 | XMS | Encounter Summary ---
Demographics + + + | Address | [address] | | | [place] [address] | + + + | Home Phone [...] Organization | [facility] | | | and [...] Team Providers + +------+ + | Care Commission Sales Associate Name | Role | Phone | [...] + + | 02/26/ | Office | [facility] | Darryl Murry, | Acute bronchitis, | | 2018 | Visit | CARE [address] | MD [address] | unspecified organism | | | | [place] | [place] | (Primary Dx); Upper | | | | [address] | [address] | respiratory tract | | | | [phone] | | infection, | | | | [...] information carefully each time. Talk to your pug mill operator helper regarding the use of this medicine in children. While this drug m ay be prescribed for children as young as 12 years for selected conditions, precautions do a pply. What side effects may I notice from receiving this medicine? Side effects that you should report to your doctor or health field care manager as soon as p ossible: allergic reactions [...] attention (report to your doctor or health field care manager if they continue or are bothersome): constipation [...] as directed by your doctor or health field care manager. Do not take more than t he recommended dose. You may develop tolerance to this medicine if you take it for a long ti me. Tolerance means that you will get less cough relief with time. Tell your doctor or [facility] if your symptoms do not improve or [...] pharmacist, or health care provider. Copyright 2017 [employer] Acute Bronchitis Your healthcare provider has told [...] be told to take ibuprofen or other lori-jhw-erdfagc m edicines. These help relieve inflammation in [...] of taking antibio tics Date Last Reviewed: 08/04/201619993894-8422 [employer]. [address] [place] [address]. All righ ts reserved. This information is [...] Surgical History: Procedure Laterality Date ABDOMEN SURGERY 2007 exp lap x 2 CHOLECYSTECTOMY HERNIA [...] as needed for Cough. 120 mL 0 [id number] (DAYQUIL MULTI-SYMPTOM COLD/FLU PO) Take by mouth. [...]
--- OUTSIDE RECORDS SUMMARY | ~2020-01-03 | XMS | Encounter Summary ---
Demographics + + + | Address | [address] | | | [place] [address] | + + + | Home Phone [...] + | Organization | [facility] [...] Team Providers + +------+ + | Care Sports Book Board Attendant Name | Role | Phone | + +------+ + PCP | Unavailable | + +------+ + Encounter Details +--------+ + + + + | Date | Type | Department | Care Team | Description | +--------+ + + + + | 09/18/ | Hospital | [facility] | Mojgan Lauren | Endometriosis of | | 2008 | Encounter | CONVERSION DEP [address] | [place] [phone] | Pelvic Peritoneum | | | | [place] | (Fax) | | | | | [place] | | | | | | [address] | | | | | | [phone] | | | +--------+ + + + [...] Performed At | + + + | [id number] | | | Page 1 Diagnostic Note | | | / | | | [facility] | | | NAME: [place] [address] | | | | | | | | | DATE OF : 1980 ORDER NUMBER: [id number] EXAM | | | DATE/TIME: 09/18/2008 01:30 P ORDERING PHYSICIAN: CRISTOPHER | | | MOJGAN Monson ORDER DETAIL: 1948 / / KUS EXAM DESCRIPTION: [facility] US | | | ENDOVAGINAL | | | | | | See diagnostics scanned report. A | | | A /jc1// cc: | | + + + + + | Procedure Note | + + | Sky Pardeep Skelton - 04/28/2019 11:05 PM PDT | | [id number] Page 1 | | Diagnostic Note / | | AP[facility] | | [facility] NAME: NATALY [place] | | [place] [address] | | | | DATE OF : 1980 | | | | ORDER NUMBER: [id number] | | EXAM DATE/TIME: 09/18/2008 01:30 P | | ORDERING PHYSICIAN: MOJGAN LAUREN | | ORDER DETAIL: 1948 / / [...]
--- OUTSIDE RECORDS SUMMARY | ~2020-01-03 | XMS | Encounter Summary ---
Demographics + + + | Address | [address] | | | [place] [address] | + + + | Home Phone | | + + + | Preferred Language | Unknown | + + + | Marital Status | Single | + + + | Tenriism Affiliation | CHR | + + + | Race | White | + + + | Ethnic Group | Not or | + + + Author + + + | Author | [facility] | + + + | Organization | [facility] | + + + | Address | Unknown | + + + | Phone | Unavailable | + + + Support + + +---------+ + | Name | Relationship | Address | Phone | + + +---------+ + | Radha Soria | ECON | Unknown | | + + +---------+ + Care Team Providers + +------+ + | Care Transmission Design Engineer Name | Role | Phone | [...] + | 12/10/ | Telephone | [facility] | Mickie Gottlieb, | Pain | | 2020 | IP | Department [address] | OXYACETYLENE CUTTER [address] | | | | | [address] | [address] | | | | | [facility] | [place], [place] | | | | | [place], [place] | [address] | | | | | [address] | [phone] | | | | | [phone] | | | +--------+ + + + [...]
--- OUTSIDE RECORDS SUMMARY | ~2020-01-03 | XMS | Encounter Summary ---
Demographics + + + | Address | [address] | | | [place] [address] | + + + | Home Phone [...] | Organization | [facility] [...] Team Providers + +------+ + | Care Mail Messenger Name | Role | Phone | + [...] + | 06/21/ | Telephone | [facility] | Katy Sanford MD | Other (Son diagnosed | | 2018 | | [facility] [place] | [address] | with pertussis. ) | | | | [address] | [place] | | | | | [place], [place] | [address] | | | | | [address] | | | | | | [phone] | | | +--------+ + + + [...]
--- OUTSIDE RECORDS SUMMARY | ~2020-01-03 | XMS | Encounter Summary ---
Demographics + + + | Address | [address] | | | [place] [address] | + + + | Home Phone [...] | Organization | [facility] | | | and [...] Providers + +------+ + | Care Rn Hedis Name | Role | Phone | + +------+ + PCP | Unavailable | + +------+ + Encounter Details +--------+ + + + + | Date | Type | Department | Care Team | Description | +--------+ + + + + | 10/06/ | [facility] | [facility] | Edi Sprague | | | 2010 | Encounter | MED CTR XRAY [address] | [address] | | | | | [place] | [place] | | | | | [place] [address] | [address] | | | | | [phone] | | | +--------+ + + + [...]
--- OUTSIDE RECORDS SUMMARY | ~2020-01-03 | XMS | Encounter Summary ---
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) | | | | [address] | [phone] | | | | | [phone] | | | +--------+ + + + [...] Care Everywhere.Muscle Spasm (E nglish)Getting Help, Addiction (Belarusian)documented in this encounter Medications at Time of [...] | | | | | mg/dL | [facility] | | | | | | MEDICAL | | | | | | CENTER - | | | | | | LABORATORY | | + + + + + + | eGFR if not | >60Comment: GLOMERULAR | >=60 | [facility] | | | | FILTRATION | mL/min/1.73m2 | [facility] | | | ICELANDIC | RATE,ESTIMATED | | MEDICAL | | | | mL/min/1.86d3Ysfz than | | CENTER - | | [...] | | | | | mg/dL | [facility] | | | | | | MEDICAL [...] St | [place] | [phone] | | [facility] | | [address] | | | - LABORATORY | | [...]
--- OUTSIDE RECORDS SUMMARY | ~2020-01-03 | XMS | Encounter Summary ---
Demographics + + + | Address | [address] | | | [place] [address] | + + + | Home Phone [...] + + + | Author | [facility] | | | and [place] | + + + | Organization | [facility] | | | and [place] [...] Team Providers + +------+ + | Care Kitchen Chef Name | Role | Phone | + [...] | | | | [place] | [address] [place] | | | | | [address] | [place] [address] | | | | | [phone] | | | +--------+ + + + [...] of this encounter Progress Notes Palma Forde, CIRCLE EDGER - 12/06/2019 2:44 PM PDTFLUOROSCOPY C ARM [...] 11/16/2019 LEFT ELBOW TWO VIEWS 11/16/2019 at [facility] CLINICAL INFORMATION: Left arm injury, Foreign [...] LIMITED on 11/16/2019 at [facility] REASON FOR EXAM: arm, decubital fossa; COMPARISON: NONE. IMPRESSION: Limited sonographic interrogation in the area of clinical interest does not identify a sonographically apparent foreign body within the interrogated soft tissues. This report was X-RAY ELBOW 2 VIEWS LEFT 11/15/2019 at [facility] REASON FOR EXAM: Female, 39 years old, [...]
--- OUTSIDE RECORDS SUMMARY | ~2020-01-03 | XMS | Encounter Summary ---
Demographics + + + | Address | [address] | | | [place] [address] | + + + | Home Phone [...] | [facility] | [...] Providers + +------+ + | Care Manager Acquisition Name | Role | Phone | + [...] | | | [address] [place] | | | | | | [address] | | | | | | [phone] | | | +--------+ + + + [...]
--- OUTSIDE RECORDS SUMMARY | ~2020-01-03 | XMS | Encounter Summary ---
Demographics + + + | Address | [address] | | | [place] [address] | + + + | Home Phone [...] | Organization | [facility] | [...] Team Providers + +------+ + | Care Gut Snatcher Name | Role | Phone | + +------+ + PCP | Unavailable | + +------+ + Encounter Details +--------+ + + + + | Date | Type | Department | Care Team | Description | +--------+ + + + + | 07/01/ | Hospital | [facility] | Joe Lauren | Other abnormal | | 2001 | Encounter | [facility] | [place] [phone] | product of | | | | OUTPATIENT | (Fax) | conception | | | | PROCEDURES [address] | | | | [address] | | | | | | [place] | | | | | | [address] | | | | | | [phone] | | | +--------+ + + + [...]
--- OUTSIDE RECORDS SUMMARY | ~2020-01-03 | XMS | Encounter Summary ---
Demographics + + + | Address | [address] | | | [place] [address] | + + + | Home Phone [...] | Organization | [facility] | [...] Team Providers + +------+ + | Care Bi Data Modeler Name | Role | Phone | + +------+ + | Katy Sanford MD | PCP | | + +------+ + Encounter Details +--------+ + + + + | Date | Type | Department | Care Team | Description | +--------+ + + + + | 08/30/ | Abstract | [facility] | Katy Sanford MD | | | 2018 | | [facility] | [address] | | | | | [address] | [place] | | | | | [place] | [address] | | | | | [address] | | | | | | [phone] | | | +--------+ + + + [...]
--- OUTSIDE RECORDS SUMMARY | ~2020-01-03 | XMS | Encounter Summary ---
Demographics + + + | Address | [address] | | | [place] [address] | + + + | Home Phone | | + + + | Preferred Language | Unknown | + + + | Marital Status | Single | + + + | Worship Affiliation | 1013 | + + + | Race | Unknown | + + + | Ethnic Group | Unknown | + + + Author + + + | Author | [facility] | | | and [place] | + + + | Organization | [facility] | [...] Team Providers + +------+ + | Care Valving Machine Operator Name | Role | Phone [...] | | | | CENTER [address] | [address] [place] | | | | | [place], [place] | [place] [address] | | | | | [address] | [phone] | | | | | [phone] | | | +--------+ + + + [...] J?MRN: | | | | | | [id number] | | | [id number] | | | riteri | | | [...] | | 1 0 | | | Castro | | | | | | Health [...] | | | 2020 | | | Castro | | | | | | Health [...] | | | 2020 | | | Castro | | | | | | Health [...]
--- OUTSIDE RECORDS SUMMARY | ~2020-01-03 | XMS | Encounter Summary ---
Demographics + + + | Address | [address] | | | [place] [address] | + + + | Home Phone [...] | Organization | [facility] [...] Team Providers + +------+ + | Care Combiner Name | Role | Phone | + +------+ + PCP | Unavailable | + +------+ + Encounter Details +--------+ + + + + | Date | Type | Department | Care Team | Description | +--------+ + + + + | 09/18/ | Hospital | [facility] | Mojgan Lauren | Endometriosis of | | 2008 | Encounter | CONVERSION DEP [address] | [place] [phone] | Pelvic Peritoneum | | | | [place] | (Fax) | | | | | [place] | | | | | | [address] | | | | | | [phone] | | | +--------+ + + + [...] Performed At | + + + | [id number] | | | Page 1 Diagnostic Note | | | / | | | [facility] | | | NAME: [place] [address] | | | | | | | | | DATE OF : 1980 ORDER NUMBER: [id number] EXAM | | | DATE/TIME: 09/18/2008 01:30 [...] - 04/28/2019 11:05 PM PDT | | [id number] Page 1 | | Diagnostic Note / | | APW | | [facility] NAME: NATALY BEDOYA | | [place] [address] | | | | DATE OF : 1980 | | | | ORDER NUMBER: [id number] | | EXAM DATE/TIME: 09/18/2008 01:30 P [...]
--- OUTSIDE RECORDS SUMMARY | ~2020-01-03 | XMS | Encounter Summary ---
Demographics + + + | Address | [address] | | | [place] [address] | + + + | Home Phone [...] Organization | [facility] | | [...] Team Providers + +------+ + | Care Homicide Squad Commanding Officer Name | Role | Phone | [...] + + | 12/25/ | Office | [facility] | Jim Buckner | Migraine without | | 2019 | Visit | CARE [address] | B, DO [address] | status migrainosus, | | | | [place] | [address] [place] | not intractable, | | | | [address] | [address] | unspecified migraine | | | | [phone] | | type (Primary Dx); | | [...] Wash your hands often. Use alcohol-based hand utility lineman when you don t have access to [...] and open the door. Date Last Reviewed: 08/04/201619995932-3516 [employer] [address] [place] [address], [place] [address]. All righ ts reserved. This information is [...] loosen secretions in the nose and lungs. Dagx-ftl-oewsitd cold medicines will not shorten the length of time you re sick, but t hey may be helpful for the following symptoms: cough, sore throat, and nasal and sinus conge stion. If you take prescription medicines, ask your healthcare provider or pharmacist which sqah-ccd-iidodbu medicines are safe to use. (Note: Don't [...] with a muffled voice Date Last Reviewed: 02/02/201819996659-1247 The [email or web address]. [address] [place] [address], [place] [address]. All righ ts reserved. This information is [...] is being changed from Dr. Rader's, to [place] [facility]. Her first visit at the new [...] lumbar back pain. She has tried some pwov-xra-ipwzkzy preparations a t home to include DayQuil, [...] of this note have been dictated using [employer] s oftware. It will be reviewed for [...]
--- OUTSIDE RECORDS SUMMARY | ~2020-01-03 | XMS | Encounter Summary ---
Demographics + + + | Address | [address] | | | [place] [address] | + + + | Home Phone [...] | [facility] | [...] Team Providers + +------+ + | Care Parquet Floor Layer'S Helper Name | Role | Phone | + +------+ + | Mohinder Gage DO | PCP | | + +------+ + Reason for Visit +--------+ + | Reason | Comments | +--------+ + | Spasms | seen at [place] 3 x in past week. pt rambling in triage, | | | states iv drug use, has not used in 3 days | +--------+ + Encounter Details +--------+ + + + + | Date | Type | Department | Care Team | Description | +--------+ + + + + | 12/07/ | Emergency | [facility] | Arcenio Daniels | Methamphetamine use | | 2019 | | MEDICAL CENTER | DO Jim [address] | ([facility]) (Primary Dx); | | | | EMERGENCY CENTER | [address] | Alcohol use | | | | [address] | [place], [place] | | | | | [place], [place] | [address] | | | | | [address] | [phone] | | | | | [phone] | | | +--------+ + + + [...] sent through Care Everywhere.Getting Help, A ddiction (Vietnamese)Addiction: Ask Yourself These Questions (Vietnamese)documented in this encoun ter Medications at Time [...] 1 tablet by | | 1 | 08/23/ | | | (ZYRTEC) 10 mg | [...] | | | | | performed at [facility] | | | | | | [facility];[place], [place] | | | | | | [address] | | | | + + + [...] | + + + + + | [facility] | [address] | [place] [address] | [phone] | + + + + + Urinalysis [...] - 1.030 | [facility] | | | [place], | | | LABORATORY | | | [...] | | | Urine | performed at [facility];[address] | | LABORATORY | | | | [address];[place] | | | | | | [address] | | | | + + + [...] | + + + + + | [facility] | [address] | [place] [address] | [phone] | + + + + + , Serum, Qual (12/08/2019 9:28 PM PDT) + + + + + + | Component | Value | Ref Range | Performed | Pathologist | | | | | At | Signature | + + + + + + | Preg, Serum | NEGATIVEComment: Testing | NEG | [facility] | | | | performed at [facility] | | LABORATORY | | | | Maryanne [address]onel;[place], [place] | | | | | | [address] | | | | + + + + + + + + | Specimen | + + | Blood | + + + + + + + | Performing | Address | City/State/Zipcode | Phone Number | | Organization | | | | + + + + + | [facility] | [address] | [place] [address] | [phone] | + + + + + Ethanol (12/08/2019 9:28 PM PDT) + + + + + + | Component | Value | Ref Range | Performed | Pathologist | | | | | At | Signature | + + + + + + | ALCOHOL, | 86 (H)Comment: Testing | <10 mg/dL | [facility] | | | SERUM/PLASM | performed at [facility];[address] | | LABORATORY | | | A | [address];[place] | | | | | | [address] | | | | + + + + + + + + | Specimen | + + | Blood | + + + + + + + | Performing | Address | City/State/Zipcode | Phone Number | | Organization | | | | + + + + + | [facility] | [address] | [place] [address] | [phone] | + + + + + Acetaminophen Level (12/08/2019 9:28 PM PDT) + + + + + + | Component | Value | Ref Range | Performed | Pathologist | | | | | At | Signature | + + + + + + | Acetaminoph | <2.0 (L)Comment: Testing | 10.0 - 30.0 | JENNIFER | | | en, S | performed at [facility];[address] | ug/mL | LABORATORY | | | | [address];[place], [place] | | | | | | [address] | | | | + + + + + + + + | Specimen | + + | Blood | + + + + + + + | Performing | Address | City/State/Zipcode | Phone Number | | Organization | | | | + + + + + | [facility] | [address] | [place] [address] | [phone] | + + + + + Salicylate Level (12/08/2019 9:28 PM PDT) + + + + + + | Component | Value | Ref Range | Performed | Pathologist | | | | | At | Signature | + + + + + + | Salicylate, | <3.0Comment: Testing | 2.8 - 20.0 | [facility] | | | mg/dL | performed at [facility];888 | mg/dL | LABORATORY | | | | [address];[place], [place] | | | | | | [address] | | | | + + + + + + + + | Specimen | + + | Blood | + + + + + + + | Performing | Address | City/State/Zipcode | Phone Number | | Organization | | | | + + + + + | [facility] | [address] | [place] [address] | [phone] | + + + + + Comprehensive [...] | >60Comment: GFR <60: | >60 | [facility] | | | GFR | CHRONIC KIDNEY [...] | | | | | | MDRD [facility] traceable | | | | | | equation.Testing | | | | | | performed at [facility];[address] | | | | | | [facility];[place], [place] | | | | | | [address] | | | | + + + + + + + + | Specimen | + + | Blood | + + + + + + + | Performing | Address | City/State/Zipcode | Phone Number | | Organization | | | | + + + + + | [facility] | 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
--- OUTSIDE RECORDS SUMMARY | ~2020-01-03 | XMS | Encounter Summary ---
Demographics + + + | Address | [address] | | | [place] [address] | + + + | Home Phone [...] + + | Author | [facility] | | | and [place] | + + + | Organization | [facility] [...] Team Providers + +------+ + | Care Recovery Operator Name | Role | Phone | [...] | | | and | | [address] [place] | | | | | | | [place] | | | | | | | [address] | | | | | | | Phone: | | | | | | | [phone] | | | | | | | Fax: | | | | | | | [phone] | | +--------+ + + + + [...] | | | | | | ST [place] | | | | | | | [place] | | | | | | | [address] | | | | | | | Phone: | | | | | | | [phone] | | | | | | | Fax: | | | | | | | [phone] | | +--------+ + + + + [...] + + | 10/26/ | Hospital | [facility] | Edi Sprague | Delivery normal | | 2016 - | Encounter | [facility] | MD José [address] | (Primary Dx) | | | | [address] | [place] | | | 10/28/ | | [place] | [address] | | | 2015 | | [address] | | | | | | [phone] | | | +--------+ + + + [...] 10/28/2015 ATTENDING CLINICIAN: Edi Sprague MD PRIMARY PROTOTYPE ASSEMBLER ELECTRONICS: No Physician on file HISTORY OF PRESENT [...] you and your baby go home, [facility] will check to be [...] vaginal area will be checked. Contact your [facility] care provider if you think you or your baby are having any problems. [phone] The [employer] [address] [place] [address]. All righ ts reserved. This information is [...] Keena Fournier RN - 10/27/2015 3:48 PM [id number] report given to Antonia and Simran rns [...] [address] | [place] | [phone] | | [facility] | | [address] | | | - LABORATORY | | [...] | | | POC | | | [facility] | | | | | | MEDICAL [...] | + + + + + | [address] | [address] | [place] | [phone] | | [facility] | | [address] | | | - LABORATORY | | [...] | | | | | g/dL | . MARIE | | | | [...] [address] | [place] | [phone] | | [facility] | | [address] | | | - LABORATORY | | [...] | | | | | modification) on Mon10/27/15 at | | | | | | [...] | 27-0.8 mg multivitamin | Given | 02/24/20 | 1 tablet | | | | [...]
--- OUTSIDE RECORDS SUMMARY | ~2020-01-03 | XMS | Encounter Summary ---
Demographics + + + | Address | [address] | | | [place] [address] | + + + | Home Phone [...] + | Author | [facility] | | | and [place] | + + + | Organization | [facility] | [...] Team Providers + +------+ + | Care Asbestos Brake Lining Finisher Helper Name | Role | Phone | [...] | | | | | with | [address] | [place] [address] | | | | | cervical rib | Phone: | Phone: | | | | | | [phone] | [phone] | | | | | | Fax: | Fax: | | | | | | [phone] | [phone] | +--------+ + + + + + Encounter Details +--------+---------+ + + + | Date | Type | Department | Care Team | Description | +--------+---------+ + + + | 10/16/ | Office | [facility] [place] | Liv Pang | 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, 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 HEP: Access Code: [email or web address] URL: [email or web address] Date: 10/16/2018 Prepared by: Liv Pang Exercises Supine Static Chest Stretch on Foam Roll - 2 minutes - 2x daily Median Nerve Flossing - 15 reps - 3x daily - 7x weekly Foam Roll Alternating Arm Flexion "Swimmer" - 10 reps - 3 sets - 30 sec hold [place] on Foam Roll - 1 min - [...]
--- OUTSIDE RECORDS SUMMARY | ~2020-01-03 | XMS | Encounter Summary ---
Demographics + + + | Address | [address] | | | [place] [address] | + + + | Home Phone [...] Providers + +------+ + | Care Wire Harness Design Engineer Name | Role | Phone | + +------+ + PCP | Unavailable | + +------+ + Encounter Details +--------+ + + + + | Date | Type | Department | Care Team | Description | +--------+ + + + + | 05/26/ | Hospital | [facility] | Joe Lauren | | | 2002 - | Encounter | MEDICAL CENTER LABOR | [place] [phone] | | | | | AND DELIVERY 888 | (Fax) Conversion | | | 05/29/ | | LEOLA ROSS | Transaction, | | | 2002 | | [place], [place] | Provider Unknown | | | | | [address] | | | | | | [phone] | | | +--------+ + + + [...]
--- OUTSIDE RECORDS SUMMARY | ~2020-01-03 | XMS | Encounter Summary ---
Demographics + + + | Address | [address] | | | [place] [address] | + + + | Home Phone [...] + + + | Author | [facility] | | | and [place] | + + + | Organization | [facility] [...] Team Providers + +------+ + | Care Induction Machine Setter Name | Role | Phone | [...] Refill | | 2018 | | [facility] [place] | [address] | | | | | [address] | [place] | | | | | [place], [place] | [address] | | | | | [address] | | | | | | [phone] | | | +--------+--------+ + + + [...]
--- OUTSIDE RECORDS SUMMARY | ~2020-01-03 | XMS | Encounter Summary ---
Demographics + + + | Address | [address] | | | [place] [address] | + + + | Home Phone [...] | Organization | [facility] | [...] Team Providers + +------+ + | Care Cloud Solutions Architect Name | Role | Phone | [...] | | | | | | | [address] | | | | | | | Phone: | | | | | | | [phone] | | | | | | | Fax: | | | | | | | [phone] | | +--------+ + + + + [...] | | | | | | | [address] | | | | | | | Phone: | | | | | | | [phone] | | | | | | | Fax: | | | | | | | [phone] | | +--------+ + + + + [...] [facility] | Edi Sprague | Delivery normal | | 2016 - | Encounter | [facility] | MD José [address] | (Primary Dx) | | | | [address] | [place] | | | 10/28/ | | [place] | [address] | | | 2015 | | [address] | | | | | | [phone] | | | +--------+ + + + [...] 10/28/2015 ATTENDING CLINICIAN: Edi Sprague MD PRIMARY TIE LAYER: No Physician on file HISTORY OF PRESENT [...] you and your baby go home, a [facility] provider will check to be sure you [...] vaginal area will be checked. Contact your [facility] care provider if you think you or your baby are having any problems. [phone] The [employer]. [address] [place] [address]. All righ ts reserved. This information is [...] documented as of this encounter Progress Notes Simrna Mahoney RN - 10/28/2015 11:05 AM PSTPt [...] Keena Fournier RN - 10/27/2015 3:48 PM [id number] report given to Antonia and Simran rns [...] [address] | [place] | [phone] | | [facility] | | [address] | | | - LABORATORY | | [...] | | | POC | | | [facility] | | | | | [...] | + + + + + | [address] | [address] | [place] | [phone] | | [facility] | | [address] | | | - LABORATORY | | [...] [address] | [place] | [phone] | | [facility] | | [address] | | | - LABORATORY | | [...]
--- OUTSIDE RECORDS SUMMARY | ~2020-01-03 | XMS | Encounter Summary ---
Demographics + + + | Address | [address] | | | [place] [address] | + + + | Home Phone [...] Organization | [facility] | | [...] Team Providers + +------+ + | Care Service Aide Name | Role | Phone | + [...] | Appointment | | 2019 | | [facility] | Aide | | | | | THERAPY [address] | | | | | | [address] [place] | | | | | | [address] | | | | | | [phone] | | | +--------+ + + + [...]
--- OUTSIDE RECORDS SUMMARY | ~2020-01-03 | XMS | Encounter Summary ---
Demographics + + + | Address | [address] | | | [place] [address] | + + + | Home Phone [...] Organization | [facility] | | | and [place] | [...] Providers + +------+ + | Care Machine Icer Name | Role | Phone | + [...] + + | 11/15/ | Emergency | [facility] | Tomy Varner, | Medication reaction, | | 2019 | | [facility] | PA-Mickie [address] | initial encounter | | | | EMERGENCY CENTER | [place] [address] | (Primary Dx); | | | | [address] | [phone] | Urticaria; Pruritus | | | | [place], [place] | | | | | | [address] | Osiel Barreto, | | | | | [phone] | MD [address] | | | | | | [place] [address] | | | | | | [phone] | | +--------+ + + + + [...] be sent through Care Everywhere.Hives (Adult) ( American)Drug Reaction, Other (American)documented in this encounter Medications at Time of [...]
--- OUTSIDE RECORDS SUMMARY | ~2020-01-03 | XMS | Encounter Summary ---
Demographics + + + | Address | [address] | | | [place] [address] | + + + | Home Phone [...] | Organization | [facility] | | | [...] Providers + +------+ + | Care Sales Service Rep Name | Role | Phone | + +------+ + PCP | Unavailable | + +------+ + Encounter Details +--------+ + + + + | Date | Type | Department | Care Team | Description | +--------+ + + + + | 03/27/ | [facility] | [facility] | Bhupinder Yadav, | | | 2011 | Encounter | MED CTR EMERGENCY | [address] | | | | | CENTER [address] | [place] | | | | | [place] | [address] | | | | | [address] | | | | | | [phone] | | | +--------+ + + + [...]
--- OUTSIDE RECORDS SUMMARY | ~2020-01-03 | XMS | Encounter Summary ---
Demographics + + + | Address | [address] | | | [place] [address] | + + + | Home Phone [...] + | Organization | [facility] | | [...] Team Providers + +------+ + | Care Engineering Supervisor Name | Role | Phone | [...] [address] [place] | | | | | [address] | [place] [address] | | | | | [phone] | | | +--------+ + + + [...] as of this encounter Progress Notes Palma Forde CMA - 12/06/2019 1:45 PM PDTX-RAY ELBOW 2 VIEWS LEFT 11/15/2019 at [facility] REASON FOR EXAM: Female, 39 years [...]
--- OUTSIDE RECORDS SUMMARY | ~2020-01-03 | XMS | Encounter Summary ---
Demographics + + + | Address | [address] | | | [place] [address] | + + + | Home Phone [...] + | Organization | [facility] | [...] Team Providers + +------+ + | Care Slide Fasteners Inspector Name | Role | Phone | [...] Refill | | 2018 | | [facility]IC[facility] [place] | [address] | | | | | [address] | [place] | | | | | [place], [place] | [address] | | | | | [address] | | | | | | [phone] | | | +--------+--------+ + + + [...]
--- OUTSIDE RECORDS SUMMARY | ~2020-01-03 | XMS | Encounter Summary ---
Demographics + + + | Address | [address] | | | [place] [address] | + + + | Home Phone [...] | Organization | [facility] | [...] Team Providers + +------+ + | Care Psychiatric Aide Instructor Name | Role | Phone | [...] | 06/25/ | Telephone | [facility] | Katy Sanford MD | Lab Results | | 2018 | | MEDICINE [place] | [address] | | | | | [address] | [place] | | | | | [place], [place] | [address] | | | | | [address] | | | | | | [phone] | | | +--------+ + + + [...]
--- OUTSIDE RECORDS SUMMARY | ~2020-01-03 | XMS ---
Demographics + + + | Address | [address] | | | [place] [address] | + + + | Preferred Language | Unknown | + + + | Marital Status | Unknown | + + + | Mormon Affiliation | Unknown | + + + | Race | Unknown | + + + | Ethnic Group | Unknown | + + + Author + + + | Author | [facility] | + + + | Organization | [facility] | + + + | Address | [address] | | | [place] [address] | + + + | Phone | | + + + Care Team Providers + + + + | Care Supervisor Crack Off Name | Role | Phone | + + + + Unavailable | Unavailable | + + + + PROBLEMS +---------+ + + +--------+ + + | Type | Condition | ICD9-CM | [id number] | Onset | Condition | SNOMED | | | | Code | Code | Dates | Status | Code | +---------+ + + +--------+ + + | Problem | Depression | 300.4 | | | Active | 183429678 | | | with | | | | | | | | anxiety | | | | | | +---------+ + + +--------+ + + | Problem | Perioperat | 998.32 | | | Active | 24091768 | | | martha | | | [...] | 789.01 | | | Active | 663056929 | +---------+ + + +--------+ + + | Problem | 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 | 83027231 | | | rhinitis | | | [...] | 648.44 | | | Active | 02364501 | | | m | | | | | | | | depression | | | | | | +---------+ + + +--------+ + + | 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 | 536311190 | | | diabetes | | | | | | +---------+ + + +--------+ + + | Problem | Palpitatio | | R00.2 | | Active | 00511826 | | | n | | | | | | +---------+ + + +--------+ + + | Problem | Chronic | V58.69 | | | Active | 484667365 | | | prescripti | | | | | | | | on | | | | | | | | benzodiaze | | | | | | | | pine use | | | | | | +---------+ + + +--------+ + + | Problem | Status | V45.79 | | | Active | 503954012 | | | post | | | | | | | | cholecyste | | | | | | | | ctomy | | | | | | +---------+ + + +--------+ + + | Problem | Depression | | F41.8 | | Active | 320097717 | | | with | | | | | | | | anxiety | | | | | | +---------+ + + +--------+ + + | Problem | Peripheral | | G62.9 | | Active | 737407850 | | | | | | | | | | | neuropathy | | | | | | +---------+ + + +--------+ + + ALLERGIES + + + + +--------+ | Substance | Reaction | Event Type | Date | Status | + + + + +--------+ | Codeine | Unknown | Drug Allergy | Apr, | Active | + + + + +--------+ | Gaetano ODT | skin burning | Drug Allergy | Apr, | Active | | | and hot | | | | + + + + +--------+ | Wellbutrin | angry | Drug Allergy | Apr, | Active | + + + + +--------+ | Tramadol HCl | Unknown | Drug Allergy | Apr, | Active | + + + + +--------+ SOCIAL HISTORY No smoking Hx information available PLAN OF CARE + +---------+ | Activity | Details | + +---------+ +---+ | | +---+ + + + | Follow Up | 06/07/17 as scheduled Reason:null | + + + VITAL SIGNS + + + + | Height | 60 in | 2017-04-28 | + + + + | Weight | 157 lbs | 2017-04-28 | + + + + | BMI | 30.0 kg/m2 | 2017-04-28 | + + + + | Temperature | 99.2 degrees Fahrenheit | 2017-04-28 | + + + + | Heart Rate | 106 /min | 2017-04-28 | + + + + | Blood pressure systolic | 109 mm Hg | 2017-04-28 | + + + + | Blood pressure diastolic | 72 mm Hg | 2017-04-28 | + + + + MEDICATIONS + + + + + + + +--------+ | Medicati | Instruct | Dosage | Frequenc | Start | End Date | Duration | Status | | on | ions | | y | Date | | | | + + + + + + + +--------+ | Metformi | Orally | 1 tablet | | | | | Active | | n HCl | as | with | | | | | | | 500 mg | directed | meals | | | | | [...] Orally | 1 tablet | 24h | 04 Apr, | | 30 | Active | | ne HCl | Once a | | | 2017 | | day(s) | | | 50 mg | day | | | | | | | + + + + + + + +--------+ | Fish Oil | | | | | | | Active | + + + + + + [...] | | | Active | | D3 | | | | | | | | + + + + + + + +--------+ | Spironol | Orally | 1 tab(s) | 24h | | | | Active | | actone | qd | | | | | | | | 25 MG | | | | | | | | + + + + + + + +--------+ RESULTS No Results PROCEDURES + + + + + | Procedure | Date Ordered | Related Diagnosis | Body Site | + + + + + | Est Level III | Apr 28, 2017 | | | | Intermediate | | | | + + + + + | DSCHRG MED/CURRENT | Apr 28, 2017 | | | | MED MERGE | | | | + + + + + | DOC MEDS VERIFIED | Apr 28, 2017 | | | | W/PT OR RE | | | | + + + + + IMMUNIZATIONS No Known Immunizations"
--- OUTSIDE RECORDS SUMMARY | ~2020-01-03 | XMS | Encounter Summary ---
Demographics + + + | Address | [address] | | | [place] [address] | + + + | Home Phone [...] | Organization | [facility] | [...] Team Providers + +------+ + | Care Cyber Ops Planner Name | Role | Phone | + [...] + + | 10/26/ | Anesthesia | [facility] | Jose M Ventura MD | | | 2016 | Event | MED CTR LABOR AND | [address] | | | | | DELIVERY [address] | [place], [place] | | | | | [place], | [address] | | | | | [place] [address] | | | | | | [phone] | | | +--------+ + + + [...] Local Anesthetic: Lidocaine 1% Needle: 14 G [employer] Technologiescande (9 cm). | | | Loss of [...]
--- OUTSIDE RECORDS SUMMARY | ~2020-01-03 | XMS | Encounter Summary ---
Demographics + + + | Address | [address] | | | [place] [address] | + + + | Home Phone [...] | Organization | [facility] | | | and [...] Team Providers + +------+ + | Care Steak Sauce Maker Name | Role | Phone | [...] MD | | | 2018 | | [facility] | [address] | | | | | [address] | [place] | | | | | [place] | [address] | | | | | [address] | | | | | | [phone] | | | +--------+ + + + [...]
--- OUTSIDE RECORDS SUMMARY | ~2020-01-03 | XMS | Encounter Summary ---
Demographics + + + | Address | [address] | | | [place] [address] | + + + | Home Phone [...] | Organization | [facility] | [...] Team Providers + +------+ + | Care Radio Interference Supervisor Name | Role | Phone | [...] | | [address] [place] | [place] [address] | | | | | [place] [address] | | | | | | [phone] | | | +--------+ + + + [...]
--- OUTSIDE RECORDS SUMMARY | ~2020-01-03 | XMS | Encounter Summary ---
Demographics + + + | Address | [address] | | | [place] [address] | + + + | Home Phone [...] | Organization | [facility] | [...] Providers + +------+ + | Care Guest Relations Executive Name | Role | Phone | + +------+ + PCP | Unavailable | + +------+ + Encounter Details +--------+ + + + + | Date | Type | Department | Care Team | Description | +--------+ + + + + | 07/10/ | [facility] | [facility] | Pawel Clay, | | | 2009 | Encounter | MED CTR EMERGENCY | [address] | | | | | CENTER [address] | [place] | | | | | [place] | [address] | | | | | [address] | | | | | | [phone] | | | +--------+ + + + [...]
--- OUTSIDE RECORDS SUMMARY | ~2020-01-03 | XMS | Encounter Summary ---
Demographics + + + | Address | [address] | | | [place] [address] | + + + | Home Phone [...] | Organization | [facility] | | [...] Team Providers + +------+ + | Care Configuration Management Specialist Name | Role | Phone | [...] + + | 12/06/ | Tele[facility] | [facility] | Antonia Goyal | ED Follow-up | | 2019 | | MED CTR CASE | [phone] | (amphetamine abuse) | | | | MANAGEMENT [address] | | | | | | [place], | | | | | | [place] [address] | | | | | | [phone] | | | +--------+ + + + [...]
--- OUTSIDE RECORDS SUMMARY | ~2020-01-03 | XMS | Encounter Summary ---
Demographics + + + | Address | [address] | | | [place] [address] | + + + | Home Phone [...] + + | Organization | [facility] | | | and [...] Providers + +------+ + | Care Clinical Sciences Professor Name | Role | Phone | [...] Refill | | 2018 | | MEDICINE [place] | [address] | | | | | [address] | [place] | | | | | [place], [place] | [address] | | | | | [address] | | | | | | [phone] | | | +--------+--------+ + + + [...]
--- OUTSIDE RECORDS SUMMARY | ~2020-01-03 | XMS | Encounter Summary ---
Demographics + + + | Address | [address] | | | [place] [address] | + + + | Home Phone | | + + + | Preferred Language | Unknown | + + + | Marital Status | Single | + + + | Hoahaoism Affiliation | 1013 | + + + | Race | Unknown | + + + | Ethnic Group | Unknown | + + + Author + + + | Author | [facility] | | | and [place] | + + + | Organization | [facility] | | | and [...] Team Providers + +------+ + | Care Upholstery Bundler Name | Role | Phone | + [...] | | | | CENTER [address] | | Dx) | | | | [place], [place] | | | | | | [address] | | | | | | [phone] | | | +--------+ + + + [...]
--- OUTSIDE RECORDS SUMMARY | ~2020-01-03 | XMS | Encounter Summary ---
Demographics + + + | Address | [address] | | | [place] [address] | + + + | Home Phone [...] | Organization | [facility] | | | and [...] Team Providers + +------+ + | Care Form Setter Steel Forms Name | Role | Phone | + +------+ + PCP | Unavailable | + +------+ + Encounter Details +--------+ + + + + | Date | Type | Department | Care Team | Description | +--------+ + + + + | 03/27/ | [facility] | [facility] | Bhupinder Yadav, | | | 2011 | Encounter | MED CTR EMERGENCY | [address] | | | | | CENTER [address] | [place] | | | | | [place] | [address] | | | | | [address] | | | | | | [phone] | | | +--------+ + + + [...]
--- OUTSIDE RECORDS SUMMARY | ~2020-01-03 | XMS | Encounter Summary ---
Demographics + + + | Address | [address] | | | [place] [address] | + + + | Home Phone | | + + + | Preferred Language | Unknown | + + + | Marital Status | Single | + + + | Cheondoism Affiliation | 1013 | + + + | Race | Unknown | + + + | Ethnic Group | Unknown | + + + Author + + + | Author | [facility] | | | and [place] | + + + | Organization | [facility] | | | and [place] [...] Team Providers + +------+ + | Care Extension Service Supervisor Name | Role | Phone | [...] EMERGENCY | MD Deuce [address] | ([facility]) (Primary Dx) | | | | CENTER [address] | [address] [place] | | | | | [place], [place] | [place] [address] | | | | | [address] | [phone] | | | | | [phone] | | | | | | | Wally Hernandez MD | | | | | | [address] | | | | | | [place], [place] | | | | | | [address] | | | | | | | [...] sent through Care Everywhere.Getting Help, Emeli ddiction (Sudanese)documented in this encounter Medications at Time of [...] [address] | [place] | [phone] | | [facility] | | [address] | | | - LABORATORY | | [...] + | [facility] | [address] | [place] | [phone] | | [facility] | | [address] | | | - LABORATORY | | [...] + | [address] [facility] | [address] | [place], [place] | [phone] | | [facility] | | [address] | | | - LABORATORY | | [...] [address] | [place] | [phone] | | [facility] | | [address] | | | - LABORATORY | | [...] + | [address] | [address] | [place] | [phone] | | [facility] | | [address] | | | - LABORATORY | | [...] | [address] | [place], [place] | [phone] | | [facility] | | [address] | | | - LABORATORY | | [...] mL/min/1.73m2 | [facility] | | | INDONESIAN | RATE,ESTIMATED | | MEDICAL | | | | mL/min/1.84z5Hjuo than | | CENTER - | | [...] [address] | [place] | [phone] | | [facility] | | [address] | | | - LABORATORY | | [...] 0.003-0.091 K/uL 0.0-0.9% 2nd 0.007-0.247 K/uL | [facility] | | 0.1-2.0% 3rd 0.018-0.456 K/uL 0.1-2.0% | - LABORATORY | + + + + + + + + | Performing | Address | City/State/Zipcode | Phone Number | | Organization | | | | + + + + + | [address] | [address] | [place] | [phone] | | [facility] | | [address] | | | - LABORATORY | | [...] [address] | [place] | [phone] | | [facility] | | [address] | | | - LABORATORY | | [...] - 1.030 | [facility] | | | [place], | | | [facility] | | [...] [address] | [place] | [phone] | | [facility] | | [address] | | | - LABORATORY | | [...]
--- OUTSIDE RECORDS SUMMARY | ~2020-01-03 | XMS | Encounter Summary ---
Demographics + + + | Address | [address] | | | [place] [address] | + + + | Home Phone [...] + + + | Author | [facility] | | | and [place] | + + + | Organization | [facility] | | | and [place] [...] Team Providers + +------+ + | Care Emergency Planner Name | Role | Phone | [...] + | 10/29/ | Telephone | [facility] [place] | Arcenio Martinez, | Other | | 2018 | | [facility] | MOTEL FRONT DESK ATTENDANT [address] | | | | | [address] | [place] | | | | | [place] | [address] | | | | | [address] | | | | | | [phone] | | | +--------+ + + + [...]
--- OUTSIDE RECORDS SUMMARY | ~2020-01-03 | XMS | Encounter Summary ---
Demographics + + + | Address | [address] | | | [place] [address] | + + + | Home Phone | | + + + | Preferred Language | Unknown | + + + | Marital Status | Single | + + + | Mosque Affiliation | 1013 | + + + | Race | Unknown | + + + | Ethnic Group | Unknown | + + + Author + + + | Author | [facility] | | | and [place] | + + + | Organization | [facility] | | | [...] Team Providers + +------+ + | Care Acid Polymerization Operator Name | Role | Phone | [...] | 06/25/ | Telephone | [facility] | Katy Sanford MD | Lab Results | | 2018 | | MEDICINE [place] | [address] | | | | | [address] | [place] | | | | | [place], [place] | [address] | | | | | [address] | | | | | | [phone] | | | +--------+ + + + [...]
--- OUTSIDE RECORDS SUMMARY | ~2020-01-03 | XMS | Encounter Summary ---
Demographics + + + | Address | [address] | | | [place] [address] | + + + | Home Phone | | + + + | Preferred Language | Unknown | + + + | Marital Status | Single | + + + | Alevism Affiliation | 1013 | + + + | Race | Unknown | + + + | Ethnic Group | Unknown | + + + Author + + + | Author | [facility] | | | and [place] | + + + | Organization | [facility] | | [...] Team Providers + +------+ + | Care Subeditor Name | Role | Phone | + [...] | | | | | | [place] | | | | | | [address] | | | | | | [phone] | | | +--------+ + + + [...]
--- OUTSIDE RECORDS SUMMARY | ~2020-01-03 | XMS | Encounter Summary ---
Demographics + + + | Address | [address] | | | [place] [address] | + + + | Home Phone [...] Organization | [facility] | [...] Team Providers + +------+ + | Care Fishery Division Chief Name | Role | Phone | + +------+ + PCP | Unavailable | + +------+ + Encounter Details +--------+ + + + + | Date | Type | Department | Care Team | Description | +--------+ + + + + | 04/09/ | Hospital | [facility] | Saleem Toure, | | | 2011 | Encounter | MED CTR EMERGENCY | [address] | | | | | CENTER [address] | [facility] [place] | | | | | [place] | [place] [address] | | | | | [address] | [phone] | | | | | [phone] | | | +--------+ + + + [...]
--- OUTSIDE RECORDS SUMMARY | ~2020-01-03 | XMS | Encounter Summary ---
Demographics + + + | Address | [address] | | | [place] [address] | + + + | Home Phone | | + + + | Preferred Language | Unknown | + + + | Marital Status | Single | + + + | Bahai Affiliation | 1013 | + + + | Race | Unknown | + + + | Ethnic Group | Unknown | + + + Author + + + | Author | [facility] | | | and [place] | + + + | Organization | [facility] | | [...] Team Providers + +------+ + | Care Accounts Receivable Supervisor Name | Role | Phone | [...] | | | | | with | [address] | [place] [address] | | | | | cervical rib | Phone: | Phone: | | | | | | [phone] | [phone] | | | | | | Fax: | Fax: | | | | | | [phone] | [phone] | +--------+ + + + + + [...] + + | 08/10/ | Office | [facility] | Katy Sanford MD | 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 Appointment reminders by text: Do you have an upcoming appointment? Receive a test reminder! Text the word HEALTH to [phone] to opt. in and ask our front maker lockstitch for more information blake carballo your visit today. *Standard message and data rates may apply Referral for Neurology is ready for you. Dr. Addison. [phone]. Mental Health Referrals: Please choose and then contact your insurance regarding coverage for any of the provided pr oviders or facilities listed below: Alexandra Casas, FUNERAL PRE NEED CONSULTANT: [phone]. Not taking new clients, can be put on a waiting list . Madeleine Calhoun MA: [phone] Estephania Serrato: [phone] Pam Gomez, PhD: [phone] Dr. Ankush Chao: [phone] Antelmo Cortez, [facility]: [phone] Peter Stanley, FUNERAL PRE NEED CONSULTANT: [phone] Allyson Rios, [facility]: [phone]. Bio-Energetic Therapy. "[facility]" Brian [place] [phone] Madyson Macedo: [phone] [facility] [place]: [phone] Eva Moore, [facility]: [phone] Cindy Manning: [phone]. [facility]: [phone] Referrals: During your office today we have ordered referrals for you -Physical Therapy-. The referral will be reviewed by our Insurance Authorization Coordinators. Once approved the order will be sent to the referred providers office. The referred providers office will contact you to schedule. If you have not heard to schedule your referral/s within 10 business days, please call our Referral Strike Out Machine Operator at [phone] to check on the status of the [...] check with your pharmacist before using any fijk-xsh-seaoe er medicines, including herbal supplements. Date Last Reviewed: 01/02/201719998976-0544 [employer] [place] [address], [place] [address]. All righ ts reserved. This information is [...] teach you skills to help manage anxiety rodent exterminator. Bu t change doesn t happen right [...] in the long run. Date Last Reviewed: 09/04/201619990927-6113 [employer]. [address] [place] [address], [place] [address]. All righ ts reserved. This information is [...] person's medicine, or stop taking your medic tamkea without talking to your healthcare provider first. [...] check with your pharmacist before using any utfy-jfs-xzfer er medicines, including herbal supplements. Date Last Reviewed: 01/02/201719990168-9221 [employer] [place] [address]. All righ ts reserved. This information is [...] PHQ9 SCORE Office Visit from 08/10/2018 in [facility] Office Visit from 2017 in [facility] PHQ-9 Total Score (Patient Health Questionnaire) 15 8 ANXIETY/STRESS SCORE Office Visit from 08/10/2018 in [facility] SILAS-7 Score (General Anxiety Disorder) 19 Note placed in Referral for Denied MRI from 04/13/2018 General 04/13/2018 1058 Reta Arvizu 2017-04/13??>PENDING [facility] CLINICAL REVIEW, REF # [id number] - Note PENDING- [facility] CLINICAL REVIEW, REF # [id number] Update - Scheduling Minimum Data Set | Update Description: UPLOADED CLINICAL INFORMATION ON [employer] [facility] WEBSITE. PER [employer] RESPONSE, "In order to process this case, please provide six weeks of recent ph ysician directed treatment with a follow up evaluation related to this MRI cervical spine wi thout contrast request. Please provide the above along with current clinical office notes so that the medical necessity review process can be completed. | Additional Contact Info: [employer] TEL: [phone]/ FAX: [phone] Past Medical History: Diagnosis Date Abrasion of [...] Portions of this report were transcribed using [employer] voice recognition soft hunter. Although effort was made in correcting the errors; grammatical and sound alike errors may still be present. documented in this enc ounter Plan of Treatment + + +--------+ + + | Name | Type | Priori | Associated Diagnoses | Order Schedule | | | | ty | | | + + +--------+ + + | Referral to [facility] | Outpatient | Routin | Thoracic outlet | Ordered: 08/10/2018 | | [place] [facility] | Referral | e | syndrome associated | | | [place] | | | with cervical rib | [...]
--- OUTSIDE RECORDS SUMMARY | ~2020-01-03 | XMS | Encounter Summary ---
Demographics + + + | Address | [address] | | | [place] [address] | + + + | Home Phone [...] Organization | [facility] | | [...] Providers + +------+ + | Care Public Health Technician Name | Role | Phone | [...] + | 03/12/ | Telephone | [facility] | Katy Sanford MD | Annual Exam | | 2019 | | [facility] [place] | [address] | | | | | [address] | [place] | | | | | [place] | [address] | | | | | [address] | | | | | | [phone] | | | +--------+ + + + [...]
--- OUTSIDE RECORDS SUMMARY | ~2020-01-03 | XMS | Encounter Summary ---
Demographics + + + | Address | [address] | | | [place] [address] | + + + | Home Phone [...] Organization | [facility] | [...] Team Providers + +------+ + | Care Traffic Control Supervisor Name | Role | Phone | [...] + + | 02// | Emergency | [facility] | Rupesh Butt | Josephonephritis | | 2019 | | MED CTR EMERGENCY | MD Gal [address] | (Primary Dx) | | | | CENTER [address] | [address] [place] | | | | | [place], [place] | [place] [address] | | | | | [address] | [phone] | | | | | [phone] | | | +--------+ + + + [...] sent through Care Everywhere.Urinary Tract, Female Anatomy (Latvian)documented in this encounter Medications at Time of [...] (L) | 9 - 23 mg/dL | [place] | | | | | | [facility] | | | | | | MEDICAL | | | | | | CENTER - | | | | | | LABORATORY | | + + + + + + | Creatinine | 0.58 | 0.55 - 1.02 | [place] | | | | | mg/dL | [facility] | | | | | | MEDICAL | | | | | | CENTER - | | | | | | LABORATORY | | + + + + + + | eGFR if not | >60Comment: GLOMERULAR | >=60 | [place] | | | | FILTRATION | mL/min/1.73m2 | [facility] | | | KENYAN | RATE,ESTIMATED | | MEDICAL | | | | mL/min/1.21p7Dqvc than | | CENTER - | | [...] + | [facility] | [address] | [place] | [phone] | | [facility] | | [address] | | | - LABORATORY | | [...] | | | | | | [facility] | | | | | | MEDICAL [...] | | Count | | | [facility] | | [...] | [address] | [place], [place] | [phone] | | [facility] | | [address] | | | - LABORATORY | | [...] ext. | | | | | | [phone] with request. | | | | + [...] organisms seen. | [facility]UC[facility]NAE | | | [facility] | | | [facility] | | | - LABORATORY | + + + + + + + + | Performing | Address | City/State/Zipcode | Phone Number | | Organization | | | | + + + + + | [facility] | [address] | [place] | [phone] | | [facility] | | [address] | | | - LABORATORY | | [...] [address] | [place] | [phone] | | [facility] | | [address] | | | - LABORATORY | | [...] - 1.030 | [facility] | | | [place], | | | [facility]Tim [facility] | | | Urine | | | [...] [address] | [place] | [phone] | | [facility] | | [address] | | | - LABORATORY | | [...]
--- OUTSIDE RECORDS SUMMARY | ~2020-01-03 | XMS | Encounter Summary ---
Demographics + + + | Address | [address] | | | [place] [address] | + + + | Home Phone [...] | [facility] | | | and [...] Team Providers + +------+ + | Care Family Resource Management Professor Name | Role | Phone | + +------+ + PCP | Unavailable | + +------+ + Encounter Details +--------+ + + + + | Date | Type | Department | Care Team | Description | +--------+ + + + + | 10/11/ | [facility] | [facility] | Bogdan, | | | 2010 | Encounter | MED CTR EMERGENCY | Deuce Sainz MD [address] | | | | | [place] [address] | [address] | | | | | [place] | [place] [address] | | | | | [address] | [phone] | | | | | [phone] | | | +--------+ + + + [...]
--- OUTSIDE RECORDS SUMMARY | ~2020-01-03 | XMS | Encounter Summary ---
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
--- OUTSIDE RECORDS SUMMARY | ~2020-01-03 | XMS | Encounter Summary ---
Demographics + + + | Address | [address] | | | [place] [address] | + + + | Home Phone [...] | Organization | [facility] | | | and [place] [...] Team Providers + +------+ + | Care Compressed Gas Plant Worker Name | Role | Phone | + +------+ + PCP | Unavailable | + +------+ + Encounter Details +--------+ + + + + | Date | Type | Department | Care Team | Description | +--------+ + + + + | 01/11/ | Hospital | [facility] | | | | 2009 | Encounter | MED CTR EMERGENCY | | | | | | CENTER [address] | | | | | | [place] | | | | | | [address] | | | | | | [phone] | | | +--------+ + + + [...]
--- OUTSIDE RECORDS SUMMARY | ~2020-01-03 | XMS | Encounter Summary ---
Demographics + + + | Address | [address] | | | [place] [address] | + + + | Home Phone | | + + + | Preferred Language | Unknown | + + + | Marital Status | Single | + + + | Orthodoxy Affiliation | 1013 | + + + | Race | Unknown | + + + | Ethnic Group | Unknown | + + + Author + + + | Author | [facility] | | | and [place] | + + + | Organization | [facility] [...] Team Providers + +------+ + | Care Artist Color Separation Name | Role | Phone | + +------+ + PCP | Unavailable | + +------+ + Encounter Details +--------+ + + + + | Date | Type | Department | Care Team | Description | +--------+ + + + + | 05/26/ | Hospital | [facility] | Joe Lauren | | | 2002 - | Encounter | MEDICAL CENTER LABOR | [place] [phone] | | | | | AND DELIVERY 888 | (Fax) Conversion | | | 05/29/ | | LEOLA ROSS | Transaction, | | | 2002 | | [place], [place] | Provider Unknown | | | | | [address] | | | | | | [phone] | | | +--------+ + + + [...]
--- OUTSIDE RECORDS SUMMARY | ~2020-01-03 | XMS | Encounter Summary ---
Demographics + + + | Address | [address] | | | [place] [address] | + + + | Home Phone [...] | Organization | [facility] | | [...] Providers + +------+ + | Care Personal Development Mentor Name | Role | Phone | + +------+ + PCP | Unavailable | + +------+ + Encounter Details +--------+ + + + + | Date | Type | Department | Care Team | Description | +--------+ + + + + | 09/28/ | [facility] | [facility] | Bogdan, | | | 2010 | Encounter | MED CTR EMERGENCY | Deuce Sainz MD [address] | | | | | [place] [address] | [place] [address] | | | | | [place] | [place] [address] | | | | | [address] | [phone] | | | | | [phone] | | | +--------+ + + + [...]
--- OUTSIDE RECORDS SUMMARY | ~2020-01-03 | XMS | Encounter Summary ---
Demographics + + + | Address | [address] | | | [place] [address] | + + + | Home Phone [...] | Organization | [facility] [...] Team Providers + +------+ + | Care Burial Agent Name | Role | Phone | [...] [address] | | | | | [facility], [place] | [place] [address] | | | | | [address] | [phone] | | | | | [phone] | | | +--------+ + + + [...] Performed At | + + + | [id number] | | | Page 1 Diagnostic Note | | | / | | | [facility] | | | NAME: [place] [address] | | | | | | | | | DATE OF : 1980 ORDER NUMBER: [id number] EXAM | | | DATE/TIME: 03/26/2009 10:07 [...] - 04/28/2019 11:05 PM PDT | | [id number] Page 1 | | Diagnostic Note / | | APW | | [facility] NAME: NATALY BEDOYA | | [place] [address] | | | | DATE OF : 1980 | | | | ORDER NUMBER: [id number] | | EXAM DATE/TIME: 03/26/2009 10:07 A [...]
--- OUTSIDE RECORDS SUMMARY | ~2020-01-03 | XMS | Encounter Summary ---
Demographics + + + | Address | [address] | | | [place] [address] | + + + | Home Phone [...] | Organization | [facility] | | [...] Team Providers + +------+ + | Care Light Bulb Replacer Name | Role | Phone | + [...] + + | 09/20/ | Emergency | [facility] | Bogdan, | Influenza (Primary | | 2017 | | MED CTR EMERGENCY | Deuce Sainz MD [address] | Dx) | | | | [place] [address] | [facility] | | | | | [place] | [place] [address] | | | | | [address] | [phone] | | | | | [phone] | | | +--------+ + + + [...] attachments cannot be sent through Care Everywhere.INFLUENZA ([facility])OSELTAMIVIR CAPSULES (CROATIAN)documented in this encounter Medications at Time [...]
--- OUTSIDE RECORDS SUMMARY | ~2020-01-03 | XMS | Encounter Summary ---
Demographics + + + | Address | [address] | | | [place] [address] | + + + | Home Phone | | + + + | Preferred Language | Unknown | + + + | Marital Status | Single | + + + | Taoist Affiliation | CHR | + + + [...] Team Providers + +------+ + | Care Change Agent Name | Role | Phone | [...]
--- OUTSIDE RECORDS SUMMARY | ~2020-01-03 | XMS | Encounter Summary ---
Demographics + + + | Address | [address] | | | [place] [address] | + + + | Home Phone [...] Organization | [facility] | [...] Providers + +------+ + | Care Dry Cleaning Machine Operator Name | Role | Phone [...] | Appointment | | 2019 | | [facility] | Aide | | | | | THERAPY [address] | | | | | [address] [place] | | | | | | [address] | | | | | | [phone] | | | +--------+ + + + [...]
--- OUTSIDE RECORDS SUMMARY | ~2020-01-03 | XMS | Encounter Summary ---
Demographics + + + | Address | [address] | | | [place] [address] | + + + | Home Phone [...] Organization | [facility] | | [...] Team Providers + +------+ + | Care Sewer Contractor Name | Role | Phone | + +------+ + | Mohinder Gage DO | PCP | | + +------+ + Reason for Visit +--------+ + | Reason | Comments | +--------+ + | Spasms | seen at [place] 3 x in past week. pt rambling in triage, | | | states iv drug use, has not used in 3 days | +--------+ + Encounter Details +--------+ + + + + | Date | Type | Department | Care Team | Description | +--------+ + + + + | 12/07/ | Emergency | [facility] | Arcenio Daniels | Methamphetamine use | | 2019 | | MEDICAL CENTER | DO Jim [address] | ([facility]) (Primary Dx); | | | | EMERGENCY CENTER | [address] | Alcohol use | | | | [address] | [place], [place] | | | | | [place], [place] | [address] | | | | | [address] | [phone] | | | | | [phone] | | | +--------+ + + + [...] sent through Care Everywhere.Getting Help, A ddiction (Georgian)Addiction: Ask Yourself These Questions (Georgian)documented in this encoun ter Medications at Time [...] | | | performed at [facility] | | | | | | [facility];[place], [place] | | | | | | [address] | | | | + + + [...] | + + + + + | [facility] | [address] | [place] [address] | [phone] | + + + + + Urinalysis [...] - 1.030 | [facility] | | | [place], | | | LABORATORY | | | [...] | Urine | performed at [facility];888 | | LABORATORY | | | | Maryanne Col[place]res;[place] | | | | | | [address] | | | | + + + [...] | + + + + + | [facility] | [address] | [place] [address] | [phone] | + + + + + , Serum, Qual (12/08/2019 9:28 PM PDT) + + + + + + | Component | Value | Ref Range | Performed | Pathologist | | | | | At | Signature | + + + + + + | Preg, Serum | NEGATIVEComment: Testing | NEG | [facility] | | | | performed at [facility] | | LABORATORY | | | | Maryanne Coronel;[place], [place] | | | | | | [address] | | | | + + + + + + + + | Specimen | + + | Blood | + + + + + + + | Performing | Address | City/State/Zipcode | Phone Number | | Organization | | | | + + + + + | [facility] | [address] | [place] [address] | [phone] | + + + + + Ethanol (12/08/2019 9:28 PM PDT) + + + + + + | Component | Value | Ref Range | Performed | Pathologist | | | | | At | Signature | + + + + + + | ALCOHOL, | 86 (H)Comment: Testing | <10 mg/dL | [facility] | | | SERUM/PLASM | performed at [facility];[address] | | LABORATORY | | | A | [address];[place] | | | | | | [address] | | | | + + + + + + + + | Specimen | + + | Blood | + + + + + + + | Performing | Address | City/State/Zipcode | Phone Number | | Organization | | | | + + + + + | [facility] | [address] | [place] [address] | [phone] | + + + + + Acetaminophen [...] en, S | performed at [facility];[address] | ug/mL | LABORATORY | | | | [address];[place], [place] | | | | | | [address] | | | | + + + + + + + + | Specimen | + + | Blood | + + + + + + + | Performing | Address | City/State/Zipcode | Phone Number | | Organization | | | | + + + + + | [facility] | [address] | [place] [address] | [phone] | + + + + + Salicylate [...] | mg/dL | performed at [facility];888 | mg/dL | LABORATORY | | | | Maryanne Colindres;[place], [place] | | | | | | [address] | | | | + + + + + + + + | Specimen | + + | Blood | + + + + + + + | Performing | Address | City/State/Zipcode | Phone Number | | Organization | | | | + + + + + | [facility] | [address] | [place] [address] | [phone] | + + + + + Comprehensive [...] | >60Comment: GFR <60: | >60 | [facility] | | | GFR | [...] | | | | | | MDRD [facility] traceable | | | | | | equation.Testing | | | | | | performed at [facility];[address] | | | | | | [facility];[place], [place] | | | | | | [address] | | | | + + + + + + + + | Specimen | + + | Blood | + + + + + + + | Performing | Address | City/State/Zipcode | Phone Number | | Organization | | | | + + + + + | [facility] | [address] | [place] [address] | [phone] | + + + + + CBC [...] | Absolute | performed at [facility];[address] | K/uL | LABORATORY | | | | [address];[place], [place] | | | | | | [address] | | | | + + + + + + + + | Specimen | + + | Blood | + + + + + + + | Performing | Address | City/State/Zipcode | Phone Number | | Organization | | | | + + + + + | [facility] | [address] | [place] [address] | [phone] | + + + + + documented in this encounter Visit Diagnoses + + | Diagnosis | + + | 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
--- OUTSIDE RECORDS SUMMARY | ~2020-01-03 | XMS | Encounter Summary ---
Demographics + + + | Address | [address] | | | [place] [address] | + + + | Home Phone [...] + | Organization | 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 AttachmentsThe following attachments cannot be sent through Care Everywhere.Addiction: Your Treatment Options (Telugu)documented in this encounter Medications at Time of [...] + | [facility] | [address] | [place] | [phone] | | [facility] | | [address] | | | - [...] - 1.030 | [facility] | | | [place], | | | [facility] | | [...] + | [facility] | [address] | [place] | [phone] | | [facility] | | [address] | | | - LABORATORY | | [...] | | Screen, | | | [facility] | | | Urine | | | [...] + | [facility] | [address] | [place] | [phone] | | [facility] | | [address] | | | - LABORATORY | | [...] + | [facility] | [address] | [place] | [phone] | | [facility] | | [address] | | | - LABORATORY | | [...] | [address] | [place], [place] | [phone] | | [facility] | | [address] | | | - LABORATORY | | [...] [address] | [place] | [phone] | | [facility] | | [address] | | | - LABORATORY | | [...] | | | | | | [employer] | | | | | [...] [address] | [place] | [phone] | | [facility] | | [address] | | | - LABORATORY | | [...] St | [place] | [phone] | | [facility] | | [address] | | | - LABORATORY | | [...] [address] | [place] | [phone] | | [facility] | | [address] | | | - LABORATORY | | [...] | | | | | mg/dL | [facility] | | | | | | MEDICAL | | | | | | CENTER - | | | | | | LABORATORY | | + + + + + + | eGFR if not | >60Comment: GLOMERULAR | >=60 | [facility] | | | | FILTRATION | mL/min/1.73m2 | [facility] | | | [place] | RATE,ESTIMATED | | MEDICAL | | | | mL/min/1.49l8Ksec than | | CENTER - | | [...] | | | | | mg/dL | [facility] | | | | | | [...] + + | Performing | Address | [facility]/State/Zipcode | Phone Number | | Organization | | | | + + + + + | [facility] | [address] | [place] | [phone] | | [facility] | | [address] | | | - LABORATORY | | [...] use as of October 31 | | [facility] | | | | 2018. Check [...] [address] | [place] | [phone] | | [facility] | | [address] | | | - LABORATORY | | [...] 0.0-0.9% 2nd 0.007-0.247 K/uL | [facility] | | 0.1-2.0% 3rd 0.018-0.456 K/uL 0.1-2.0% | - LABORATORY | + + + + + + + + | Performing | Address | City/State/Zipcode | Phone Number | | Organization | | | | + + + + + | [facility] | [address] | [place], [place] | [phone] | | [facility] | | [address] | | | - LABORATORY | | [...] | | | | MEI REDMOND MD ([id number]) | | | | | | on [...]
--- OUTSIDE RECORDS SUMMARY | ~2020-01-03 | XMS | Encounter Summary ---
Demographics + + + | Address | [address] | | | [place] [address] | + + + | Home Phone | | + + + | Preferred Language | Unknown | + + + | Marital Status | Single | + + + | Caodaism Affiliation | 1013 | + + + | Race | Unknown | + + + | Ethnic Group | Unknown | + + + Author + + + | Author | [facility] | | | and [place] | + + + | Organization | [facility] | | | and [place] [...] Providers + +------+ + | Care Donor Recruiter Name | Role | Phone | + [...] + + | 12/07/ | Emergency | [facility] | Pawel [place], | 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 | | MED CTR EMERGENCY | MD [address] | abuse (HCC) (Primary | | | | CENTER [address] | [place] | Dx) | | | | [place] | [address] | | | | | [address] | | | | | | [phone] | | | +--------+ + + + [...] through Care Everywhere.Methamphetamine Abuse and Addiction, Understanding (Montenegrin)documented in this encounter Medications at Time of [...]
--- OUTSIDE RECORDS SUMMARY | ~2020-01-03 | XMS | Encounter Summary ---
Demographics + + + | Address | [address] | | | [place] [address] | + + + | Home Phone [...] + | Organization | [facility] | | [...] Providers + +------+ + | Care Family Life Educator Name | Role | Phone | + [...] + + | 09/20/ | Emergency | [facility] | Bogdan, | Influenza (Primary | | 2017 | | MED CTR EMERGENCY | Deuce Sainz MD [address] | Dx) | | | | [place] [address] | [facility] | | | | | [place] | [place] [address] | | | | | [address] | [phone] | | | | | [phone] | | | +--------+ + + + [...] attachments cannot be sent through Care Everywhere.INFLUENZA ([facility])OSELTAMIVIR CAPSULES (BRITISH VIRGIN ISLANDER)documented in this encounter Medications at Time of [...]
--- OUTSIDE RECORDS SUMMARY | ~2020-01-03 | XMS | Encounter Summary ---
Demographics + + + | Address | [address] | | | [place] [address] | + + + | Home Phone [...] Organization | [facility] [...] Providers + +------+ + | Care Engineering Operator Name | Role | Phone | [...] | | | [address] [place] | [place] [address] | | | | | | [place], [place] | Phone: | | | | | | [address] | [phone] | | | | | | Phone: | Fax: | | | | | | [phone] | [phone] | | | | | | Fax: | | | | | | | [phone] | | + + + + + + + Encounter Details +--------+---------+ + + + | Date | Type | Department | Care Team | Description | +--------+---------+ + + + | 12/09/ | Office | [facility] | Vivien Madera MD | Foreign body in skin | | 2020 | Visit | SURGERY [address] | [address] [facility] | (Primary Dx) | | | | [facility] [place] | [place] [address] | | | | | [address] | [phone] | | | | | [phone] | | | +--------+---------+ + + + [...] in skin Entire visit was performed with public health advisor: VESTA Waldrop Physician notes: Nataly is here [...] this chart may have been created with Seelio voice recognition software. Occasi onal wrong-word or [...] body in | Ordered: 11/20/2019 | | [facility] - | Referral | e | [...]
--- OUTSIDE RECORDS SUMMARY | ~2020-01-03 | XMS | Encounter Summary ---
Demographics + + + | Address | [address] | | | [place] [address] | + + + | Home Phone [...] | [facility] | [...] Team Providers + +------+ + | Care Associate Professor Of Mathematics Name | Role | Phone | + +------+ + | No, Physician | PCP | Unavailable | + +------+ + Encounter Details +--------+ + + + + | Date | Type | Department | Care Team | Description | +--------+ + + + + | 08/12/ | [place] [facility] | [facility] | Edi Sprague | Normal , | | 2014 | Encounter | [address] | MD José [address] | second trimester | | | | [place] | [place] | | | | | [address] | [address] | | | | | [phone] | | | +--------+ + + + [...]
--- OUTSIDE RECORDS SUMMARY | ~2020-01-03 | XMS | Encounter Summary ---
Demographics + + + | Address | [address] | | | [place] [address] | + + + | Home Phone [...] + + | Author | [facility] | | | and [place] | + + + | Organization | [facility] | | [...] Team Providers + +------+ + | Care Customer Support Manager Name | Role | Phone | [...] + | 12/07/ | Emergency | [facility] | Pawel Clay, | 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 | | [facility] | MD [address] | abuse (HCC) (Primary | | | | CENTER [address] | [place] | Dx) | | | | [place] | [address] | | | | | [address] | | | | | | [phone] | | | +--------+ + + + [...] through Care Everywhere.Methamphetamine Abuse and Addiction, Understanding (Chinese)documented in this encounter Medications at Time of [...]
--- OUTSIDE RECORDS SUMMARY | ~2020-01-03 | XMS | Encounter Summary ---
Demographics + + + | Address | [address] | | | [place] [address] | + + + | Home Phone [...] | Organization | [facility] [place] [...] Team Providers + +------+ + | Care Instructional Manager Name | Role | Phone | [...] MD | | | 2018 | | [facility] | [address] | | | | | [address] | [place] | | | | | [place] | [address] | | | | | [address] | | | | | | [phone] | | | +--------+ + + + [...]
--- OUTSIDE RECORDS SUMMARY | ~2020-01-03 | XMS | Clinical Summary ---
Demographics + + + | Address | [address] | | | [place] [address] | + + + | Home Phone | | + + + | Preferred Language | Unknown | + + + | Marital Status | Single | + + + | Evangelical Affiliation | CHR | + + + | Race | White | + + + | Ethnic Group | Not or | + + + Author + + + | Author | [facility] | + + + | Organization [...] Comments HARSH is fully live on both [facility] and [facility] InPatient.[facility] & [facility] Allergies + + + + + + [...] | | 2019 | IP | | TRANSIT MAN | | +--------+ + + + + [...] COLLECTIVE?NOTIFICATION?12/11/2019 20:25?NATALY BEDOYA?MRN: | COLLECTIVE | | [id number] Criteria Met 3 Facilities In 60 Days 5 Visits | MEDICAL | | In 12 Months Has Guidelines PDMP Security and Safety No | TECHNOLOGIES | | recent Security Events currently on file ED Care Guidelines from | | | [facility] Last Updated: 12/11/19 10:08 AM Care | | | Recommendation: Receiving mental health services through [facility]. | | | Please contact [facility] for any mental health concerns: Carlo | | | [phone] [place] [phone] Crisis Line [phone] These | | | are guidelines and [...] Visit Count (12 mo.) Facility Visits [facility] 1 | | | [facility] 2 [facility] | | | Center 3 [facility] 11 Total 17 Note: | | | Visits indicate total known visits. Recent Emergency Department | | | Visit Summary Showing 10 most recent visits out of 18 in the past 12 | | | months Date Facility [facility] State Type Diagnoses or Chief Complaint | | | Dec 11, 2019 [facility] [place] Emergency | | | 10,800. Medication request Dec 11, 2019 [facility] and | | | [facility] [place] Emergency 10,800. Infection | | | 10,800. L Arm/Headache 18,400. Personal history of other | | | diseases of the nervous system and 18,400. Cutaneous abscess, | | | unspecified 18,400. Other stimulant abuse, uncomplicated | | | 18,400. Paresthesia of skin Dec 08, 2019 [facility] | | | [place] Emergency Spasms Other stimulant abuse, | | | uncomplicated Other problems related to lifestyle Dec 07, | | | 2019 [facility]. [place] Emergency | | | Hallucinations Other stimulant abuse, uncomplicated Apr | | | 2019 [facility]. [place] Emergency Medical | | | Complacations from alc and drug abuse Spasms Other | | | stimulant abuse, uncomplicated Dec 01, 2019 [facility] | | | [facility]. [place] Emergency CP,sob Pain Tachycardia | | | Restlessness and agitation Other stimulant use, unspecified | | | with intoxication, unspecifi Panic disorder [episodic paroxysmal | | | anxiety] Nov 20, 2019 [facility]. [place] | | | Emergency needle stuck in arm Foreign Body in Skin | | | Other injury of unspecified body region, initial encounter Mar | | | 2019 [facility] Emergency Pruritis | | | Adverse effect of unspecified drugs, medicaments and biologic | | | Pruritus, unspecified Urticaria, unspecified Nov 16, 2019 | | | [facility] Injury | | | Superficial foreign body of left upper arm, initial encounter | | | Contact with needle (sewing), initial encounter Encounter for | | | immunization Nov 15, 2019 [facility]. [place] | | | Emergency FB STUCK IN ARM Other psychoactive substance | | | use, unspecified, uncomplicated Other injury of unspecified body | | | region, initial encounter Recent Inpatient Visit Summary | | | No recorded inpatient visits. Care Team Provider Specialty Phone | | | Fax Service Dates AyakakristinGiancarlo , [facility] | | | Health Worker Nov 16, 2019 - Current | | | [facility] [facility] Portal This patient has registered at the [facility] | | | [facility] Emergency Department For more information | | | visit: | | | [email or web address] | | | [email or web address] e PLEASE NOTE: 1. Any care recommendations [...] or completeness of information provided. ? 2019 [place] | | | iSpye - Emergent Views | | + + + + + [...] on | | fileED Care Guidelines from [facility] Updated: 12/11/19 10:08 AM Care | | Recommendation:Receiving mental health services through [facility]. Please contact | | [facility] for any mental health concerns:Carlo [phone] | | [phone] Line [phone] are guidelines and the provider should | [...] E.D. Visit Count (12 mo.)Facility Visits [facility] 1 [facility] | [facility] 2 [facility] 3 [facility] | | Center 11 Total 17 Note: Visits indicate total known visits. Recent Emergency | | Department Visit SummaryShowing 10 most recent visits out of 18 in the past 12 | | monthsDate Facility City State Type Diagnoses or Chief Complaint Dec 11, 2019 [place] | | [facility] [place] Emergency 10,800. Medication request Dec 10, | | 2019 [facility] [place] 10,800. Infection | | 10,800. L Arm/Headache 18,400. Personal history of other diseases of the nervous | | system and 18,400. Cutaneous abscess, unspecified 18,400. Other stimulant abuse, | | uncomplicated 18,400. Paresthesia of skin [facility] | | [facility] Spasms Other stimulant abuse, uncomplicated Other problems related | | to lifestyle Dec 08, 2019 [facility]. [place] Emergency Hallucinations | | Other stimulant abuse, uncomplicated Dec 06, 2019 [facility] | | Emergency Medical Complacations from alc and drug abuse Spasms Other stimulant | | abuse, uncomplicated Dec 01, 2019 [facility]. [place] Emergency | | CP,sob Pain Tachycardia Restlessness and agitation Other stimulant use, | | unspecified with intoxication, unspecifi Panic disorder [episodic paroxysmal anxiety] | | Nov 20, 2019 [facility]. [place] Emergency needle stuck in arm | | Foreign Body in Skin Other injury of unspecified body region, initial encounter Nov | [facility] Pruritis Adverse effect of | | unspecified drugs, medicaments and biologic Pruritus, unspecified Urticaria, | | unspecified Nov 16, 2019 [facility] Arm Injury | | Superficial foreign [...] Service Dates Giancarlo Quarles -, [facility] | | Worker Nov 16, 2019 - Current InfoRemateThitoney patient has | | registered at the [facility] Emergency Department For more | | information visit: | | [email or web address] PLEASE | | NOTE: 1. Any care [...] to the | | limitations of applicable [employer] Policies. 3. You should consult directly with | | the organization that provided a care guideline or other clinical history with any | | questions about additional information or accuracy or completeness of information | | provided.? 2020 Natanael Ulien. - [email or web address] | |[facility] 3 | |[facility] 11 | |Total 17 | |Note: Visits indicate total known visits. | | | |Recent Emergency Department Visit Summary | |Showing 10 most recent visits out of 18 in the past 12 months | |Date Facility City State Type Diagnoses or Chief Complaint | |Dec 11, 2019 [facility] [place] Emergency | | 10,800. Medication request | | | |Dec 11, 2019 [facility] [place] Emergency | | 10,800. Infection | | 10,800. L Arm/Headache | | 18,400. Personal history of other diseases of the nervous system and | | 18,400. Cutaneous abscess, unspecified | | 18,400. Other stimulant abuse, uncomplicated | | 18,400. Paresthesia of skin | | | |Dec 08, 2019 [facility] [place] Emergency | | Spasms | | Other stimulant abuse, uncomplicated | | Other problems related to lifestyle | | | |Dec 08, 2019 [facility]. [place] Emergency | | Hallucinations | | Other stimulant abuse, uncomplicated | | | |Dec 06, 2019 [facility]. [place] Emergency | | Medical Complacations from alc and drug abuse | | Spasms | | Other stimulant abuse, uncomplicated | | | |Dec 01, 2019 [facility]. [place] Emergency | | CP,sob | | Pain | | Tachycardia | | Restlessness and agitation | | Other stimulant use, unspecified with intoxication, unspecifi | | Panic disorder [episodic paroxysmal anxiety] | | | |Nov 20, 2019 [facility]. [place] Emergency | | needle stuck in arm | | Foreign Body in Skin | | Other injury of unspecified body region, initial encounter | | | |Nov 16, 2019 [facility] Emergency | | Pruritis | | Adverse effect of unspecified drugs, medicaments and biologic | | Pruritus, unspecified | | Urticaria, unspecified | | | |Nov 16, 2019 [facility] Emergency | | Arm Injury | | Superficial foreign body of left upper arm, initial encounter | | Contact with needle (sewing), initial encounter | | Encounter for immunization | | | |Nov 15, 2019 [facility]. [place] Emergency | | FB STUCK IN ARM | | Other psychoactive substance use, unspecified, uncomplicated | | Other injury of unspecified body region, initial encounter | | | | | | | |Recent Inpatient Visit Summary | |No recorded inpatient visits. | | | |Care Team | |Provider Specialty Phone Fax Service Dates | |Giancarlo Quarles - [facility] Community Health Worker Nov 16, 2019 - C cony | | | |[employer] [facility] Portal | |This patient has registered at the [facility] and [facility] [place] Emergency Departmen t | |For more information visit: [email or web address] | |PLEASE NOTE: | | 1. Any [...] information provided. | | | |? 2020 Natanael Ulien. - [email or web address] | + + + + + + + | Performing | Address | City/State/Zipcode | Phone Number | | Organization | | | | + + + + + | [facility] | [address] | [place], [place] | [phone] | | [employer] | [address] | [address] | | + + + + + [...] | | | + +--------+ +--------+-------+---------+--------+ | ORDER BUILDER MEDICAID | ORDER BUILDER | [id number] | | | | Medica [...] | | al/Fam | | 1980 | [phone] | [place] | | | lew | | | 5 (Home) | [address] | + +--------+ +--------+ + +
--- OUTSIDE RECORDS SUMMARY | ~2020-01-03 | XMS | Encounter Summary ---
Demographics + + + | Address | [address] | | | [place] [address] | + + + | Home Phone [...] + + + | Author | [facility] | | | and [place] | + + + | Organization | [facility] | | [...] Team Providers + +------+ + | Care Batch Freezer Operator Name | Role | Phone | [...] + + | 02/26/ | Office | [facility] | Darryl Murry, | Acute bronchitis, | | 2018 | Visit | CARE [address] | MD [address] | unspecified organism | | | | [place] | [place] | (Primary Dx); Upper | | | | [address] | [address] | respiratory tract | | | | [phone] | | infection, | | | | [...] information carefully each time. Talk to your baller tender regarding the use of this medicine in children. While this drug m ay be prescribed for children as young as 12 years for selected conditions, precautions do a pply. What side effects may I notice from receiving this medicine? Side effects that you should report to your doctor or health animal care provider as soon as p ossible: allergic reactions [...] attention (report to your doctor or health animal care provider if they continue or are bothersome): constipation [...] as directed by your doctor or health animal care provider. Do not take more than t he recommended dose. You may develop tolerance to this medicine if you take it for a long ti me. Tolerance means that you will get less cough relief with time. Tell your doctor or [facility] care provider if your symptoms do not improve or [...] pharmacist, or health care provider. Copyright 2017 [employer] Acute Bronchitis Your healthcare provider has told [...] be told to take ibuprofen or other srjx-hoa-ycybirl m edicines. These help relieve inflammation in [...] of taking antibio tics Date Last Reviewed: 08/04/201619997053-2972 [employer]. [address] [place] [address]. All righ ts reserved. This information is [...] as needed for Cough. 120 mL 0 Jugvlnopklclnpb-BPHM-HH (DAYQUIL MULTI-SYMPTOM COLD/FLU PO) Take by mouth. [...]
--- OUTSIDE RECORDS SUMMARY | ~2020-01-03 | XMS | Encounter Summary ---
Demographics + + + | Address | [address] | | | [place] [address] | + + + | Home Phone [...] Organization | [facility] [...] Providers + +------+ + | Care Manager Ethics Name | Role | Phone | + [...] | 07/25/ | Office | [facility] | Micheline, | Intractable migraine | | 2018 | Visit | CARE [address] | Bonilla Patricia MD | without aura and | | | | [place] | [address] | without status | | | | [address] | [place] | migrainosus (Primary | | | | [phone] | [address] | Dx) | | | | | [...] headaches in a woman Date Last Reviewed: 09/04/201719994540-6293 [employer] [address] [place] [address]. All righ ts reserved. This information is [...] its pattern. This note was dictated using Lumics voice recognition software. Occasional wrong- word or [...]
--- OUTSIDE RECORDS SUMMARY | ~2020-01-03 | XMS | Encounter Summary ---
Demographics + + + | Address | [address] | | | [place] [address] | + + + | Home Phone [...] | Located Within [facility] | | [...] Providers + +------+ + | Care Health And Physical Education Teacher Name | Role | Phone | [...] [address] [place] | | | | | [address] | [place] [address] | | | | | [phone] | | | +--------+ + + + [...] PDTX-RAY ELBOW 2 VIEWS LEFT 11/15/2019 at [facility] REASON FOR EXAM: Female, 39 years [...]
--- OUTSIDE RECORDS SUMMARY | ~2020-01-03 | XMS | Encounter Summary ---
Demographics + + + | Address | [address] | | | [place] [address] | + + + | Home Phone | | + + + | Preferred Language | Unknown | + + + | Marital Status | Single | + + + | Temple Affiliation | 1013 | + + + | Race | Unknown | + + + | Ethnic Group | Unknown | + + + Author + + + | Author | [facility] | | | and [place] | + + + | Organization | [facility] [...] Team Providers + +------+ + | Care Fire Sprinkler Service Technician Name | Role | Phone | [...] | 2018 | | [facility] | MILL DRESSER [address] | | | | | [address] | [place] | | | | | [place] | [address] | | | | | [address] | | | | | | [phone] | | | +--------+ + + + [...]
[~2020-01-03 04:16] MED LIST: ACETAMINOPHEN325 M1 PO; CIPRO500 MG PO; CLONAZEPAM0.5 MG PO; CLONAZEPAM1 MG PO; DEBLITANE0.35 MG PO; DEPLIN15 MG PO; DOXYCYCLINE HY100 MG PO; FLEXERIL10 MG PO; FLONASE ALLERG9.9 ML NS; GABAPENTIN100 MG PO; GABAPENTIN600 MG PO; GABAPENTIN800 MG PO; IBUPROFEN800 MG PO; KLONOPIN1 MG PO; NAPROXEN500 MG PO; NEURONTIN100 MG; NEURONTIN800 MG PO; NORCO 10-325 T1 EACH PO; NORCO 5-325 TA1 EACH PO; NORCO 7.5-3251 EACH PO; OXYCODONE-ACET1 EAC1 PO; PAXIL40 MG PO; PHENADOZ12.5 MG PR; PRENATAL TABLE1 EAC2 PO; PRENATAL VITAM1 EAC2 PO; PROMETHAZINE HC25 M1 PO; PROTONIX40 MG PO; SERTRALINE HCL100 MG PO; SINGULAIR10 MG PO; VISTARIL50 MG PO; VITAMIN B; WELLBUTRIN SR100 MG PO; ZOLOFT100 MG PO; ZYRTEC10 M3 PO
--- OUTSIDE RECORDS SUMMARY | 2020-01-03 04:20 | XMS ---
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 Please contact [facility] for any mental health concerns: Carlo [phone] [place] [phone] Crisis Line [phone] E.Brianne VISIT COUNT (12 MO.) 1 [facility] 2 [facility] [place] 1 [facility] 3 [facility] 13 [facility] 1 [facility] TOTAL 21 NOTE: Visits indicate total known visits. ED/UCC VISIT TRACKING (12 MO.) 01/03/2020 04:17 BRENDA Abdi TYPE: Emergency COMPLAINT: - DIFFICULTY BREATHING 12/31/2019 23:36 [facility] [place] REYNOSO TYPE: Emergency DIAGNOSES: - Other psychoactive substance abuse, uncomplicated - Shoulder Pain - Muscle Pain - muscle spasms, poss electricuted 12/29/2019 16:42 [facility] [place] TYPE: Emergency DIAGNOSES: - Local infection of the skin and subcutaneous tissue, unspecif - Arm Pain - Dizziness; Arm Pain 12/22/2019 13:54 Yunitoney Pelon REYNOSO TYPE: Emergency COMPLAINT: - MULTIPLE COMPLAINTS - RASH OTH NONSPECIFIC SKIN ERUPTION DIAGNOSES: 0. Rash and other nonspecific skin eruption 1. Unspecified contact dermatitis, unspecified cause 3. Other stimulant abuse, uncomplicated 4. Nicotine dependence, cigarettes, uncomplicated 5. Other terminal supervisor (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 12/11/2019 20:37 [facility] TYPE: Emergency DIAGNOSES: 14680. Medication request [id number]. Pain, unspecified 98837. Other injury of unspecified body region, initial encounter 12/11/2019 11:38 [facility] TYPE: Emergency DIAGNOSES: 65459. Infection 47047. L Arm/Headache 58413. Personal history of other diseases of the nervous system and 47966. Cutaneous abscess, unspecified 99498. Other stimulant abuse, uncomplicated 94609. Paresthesia of skin 12/08/2019 21:00 [facility] [place] ANGELES TYPE: Emergency DIAGNOSES: - Other stimulant abuse, uncomplicated - Spasms - Other problems related to lifestyle 12/08/2019 04:24 [facility]: Emergency DIAGNOSES: - Other stimulant abuse, uncomplicated - Hallucinations 12/06/2019 04:53 [facility] Jose Manuel RE[place]NOS[place] TYPE: Emergency DIAGNOSES: - Other stimulant abuse, uncomplicated - Spasms - Medical Complacations from alc and drug abuse 12/01/2019 04:05 [facility] Jose Manuel REYNOSO TYPE: Emergency DIAGNOSES: - Panic disorder [episodic paroxysmal anxiety] - Pain - Tachycardia - CP,sob - Restlessness and agitation - Other stimulant use, unspecified with intoxication, unspecifi 11/20/2019 14:21 [facility] TYPE: Emergency DIAGNOSES: - Other injury of unspecified body region, initial encounter - Foreign Body in Skin - needle stuck in arm 11/16/2019 15:43 [facility] TYPE: Emergency DIAGNOSES: - Adverse effect of unspecified drugs, medicaments and biologic - Pruritus, unspecified - Pruritis - Urticaria, unspecified 11/16/2019 12:35 [facility] TYPE: Emergency DIAGNOSES: - Superficial foreign body of left upper arm, initial encounter - Contact with needle (sewing), initial encounter - Encounter for immunization - Arm Injury 11/15/2019 15:37 [facility] TYPE: Emergency DIAGNOSES: - Other psychoactive substance use, unspecified, uncomplicated - Other injury of unspecified body region, initial encounter - FB STUCK IN ARM 10/17/2019 20:15 [facility] [place] TYPE: Emergency DIAGNOSES: - Medical Problem (Minor) - Alcohol use, unspecified with intoxication, uncomplicated 10/07/2019 17:21 [facility] TYPE: Emergency DIAGNOSES: - Urinary Pain - Kidney infection? - Tubulo-interstitial nephritis, not specified as acute or edm operator 08/22/2019 20:43 [facility] TYPE: Emergency DIAGNOSES: - lt flank pain - Flank Pain - Unspecified ovarian cyst, unspecified side 07/01/2019 09:29 [facility] [place] TYPE: Emergency DIAGNOSES: - chills, light headed , foggy - Lightheaded - Disorientation, unspecified - Other stimulant dependence, uncomplicated - Drug / Alcohol Assessment 06/30/2019 03:56 [facility] [place] Manuel [place] TYPE: Emergency DIAGNOSES: - Numbness - Other stimulant use, unspecified with intoxication, unspecifi - Other stimulant dependence, uncomplicated - Paresthesia of skin 06/07/2019 02:22 [facility] [place] Manuel [place] TYPE: Emergency DIAGNOSES: - Spasms - Other muscle spasm - Other stimulant abuse, uncomplicated Plus 1 More Visit INPATIENT VISIT TRACKING (12 MO.) No inpatient visits to display in this time frame [email or web address]
[2020-01-03] MEDS ORDERED: ALDACTONE25 MG PO (04:40)
== END 2020-01-03 04:56 | disposition home or self-care (01) ==
LOC: ED 04:16
DX: F22 Delusional disorders (principal); B89 Unspecified parasitic disease; G43.909 Migraine, unspecified, not intractable, without status migrainosus; F41.9 Anxiety disorder, unspecified; F32.9 Major depressive disorder, single episode, unspecified; F17.200 Nicotine dependence, unspecified, uncomplicated; Z91.040 Latex allergy status; Z88.5 Allergy status to narcotic agent; Z88.8 Allergy status to other drugs, medicaments and biological substances; Z79.899 Other long term (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
CPT/HCPCS: 99284

== ENCOUNTER 2020-01-13 20:29 | Emergency (ER) | payer OTHER ==
[~2020-01-13] VITALS: Ht 152.4 cm; Wt 45.4 kg
--- OUTSIDE RECORDS SUMMARY | ~2020-01-13 | XMS | Encounter Summary ---
Demographics + + + | Address | [address] | | | [place] [address] | + + + | Home Phone | | + + + | Preferred Language | Unknown | + + + | Marital Status | Single | + + + | Cheondoism Affiliation | 1013 | + + + | Race | Unknown | + + + | Ethnic Group | Unknown | + + + Author + + + | Author | [facility] | | | and [place] | + + + | Organization | [facility] | | | and [place] | [...] Team Providers + +------+ + | Care Material Flow Analyst Name | Role | Phone | + +------+ + | Katy Sanford MD | PCP | | + +------+ + Reason for Visit + + + | Reason | Comments | + + + | Medication Refill | | + + + Encounter Details +--------+--------+ + + + | Date | Type | Department | Care Team | Description | +--------+--------+ + + + | 10/11/ | Refill | [facility] | Katy Sanford MD | Medication Refill | | 2019 | | [facility] [place] | [address] | | | | | [address] | [place] | | | | | [place], [place] | [address] | | | | | [address] | | | | | | [phone] | | | +--------+--------+ + + + Social History + + [...] as of this encounter Plan of Treatment Not on filedocumented as of this encounter Visit Diagnoses Not on filedocumented in this encounter"
--- OUTSIDE RECORDS SUMMARY | ~2020-01-13 | XMS | Encounter Summary ---
Demographics + + + | Address | [address] | | | [place] [address] | + + + | Home Phone | | + + + | Preferred Language | Unknown | + + + | Marital Status | Single | + + + | Hindu Affiliation | 1013 | + + + | Race | Unknown | + + + | Ethnic Group | Unknown | + + + Author + + + | Author | [facility] | | | and [place] | + + + | Organization | [facility] | | | and [place] | [...] Team Providers + +------+ + | Care Mortgage Loan Coordinator Name | Role | Phone | + +------+ + PCP | Unavailable | + +------+ + Encounter Details +--------+ + + + + | Date | Type | Department | Care Team | Description | +--------+ + + + + | 07/10/ | [facility] | [facility] | Pawel [place], | | | 2009 | Encounter | [facility] | [address] | | | | | CENTER [address] | [place] | | | | | [place] | [address] | | | | | [address] | | | | | | [phone] | | | +--------+ + + + + Social History + +-------+ +--------+------+ | Tobacco Use | Types | Packs/Day | Years | Date | | | | | Used | | + +-------+ +--------+------+ | Never Assessed | | | | | + +-------+ +--------+------+ + + + | Sex Assigned at [...]
--- OUTSIDE RECORDS SUMMARY | ~2020-01-13 | XMS | Encounter Summary ---
Demographics + + + | Address | [address] | | | [place] [address] | + + + | Home Phone | | + + + | Preferred Language | Unknown | + + + | Marital Status | Single | + + + | Congregational Affiliation | 1013 | + + + | Race | Unknown | + + + | Ethnic Group | Unknown | + + + Author + + + | Author | [facility] | | | and [place] | + + + | Organization | [facility] | | | and [...] Team Providers + +------+ + | Care Floor Winder Name | Role | Phone | + +------+ + PCP | Unavailable | + +------+ + Encounter Details +--------+ + + + + | Date | Type | Department | Care Team | Description | +--------+ + + + + | 09/18/ | Hospital | [facility] | Mojgan Nicholas | Endometriosis of | | 2008 | Encounter | CONVERSION DEP [address] | [place] [phone] | Pelvic Peritoneum | | | | [place] | (Fax) | | | | | [place], [place] | | | | | | [address] | | | | | | [phone] | | | +--------+ + + + [...] Not on filedocumented as of this encounter Procedures + +--------+ + + + | Procedure Name | Priori | Date/Time | Associated Diagnosis | Comments | | | ty | | | | + +--------+ + + + | US NON-OB | Routin | 09/18/2008 | | Results for this | | TRANSVAGINAL | e | 1:59 PM | | procedure are in the | | | | PST | | results section. | + +--------+ + + + documented in this encounter Results US Non-Ob Transvaginal (09/18/2008 1:59 PM PST) + + | Specimen | + + | | + + + + + | Narrative | Performed At | + + + | [id number] | | | Page 1 Diagnostic Note | | | / | | | [facility] | | | NAME: [place] [address] | | | | | | | | | DATE OF : 1980 ORDER NUMBER: [id number] EXAM | | | DATE/TIME: 09/18/2008 01:30 P ORDERING PHYSICIAN: CRISTOPHER | | | MOJGAN Monson ORDER DETAIL: 1948 / / KUS EXAM DESCRIPTION: [facility] US | | | ENDOVAGINAL | | | | | | See diagnostics scanned report. A | | | A /jc1// cc: | | + + + + + | Procedure Note | + + | Pardeep Swanson Conversion - 04/28/2019 11:05 PM PDT | | [id number] Page 1 | | Diagnostic Note / | | [facility] | | [facility] NAME: JE[address] | | [place] [address] | | | | DATE OF : 1980 | | | | ORDER NUMBER: [id number] | | EXAM DATE/TIME: 09/18/2008 01:30 P | | ORDERING PHYSICIAN: MOJGAN NICHOLAS | | ORDER DETAIL: 1948 / / KARINA | | EXAM DESCRIPTION: [facility] US ENDOVAGINAL | | | | See diagnostics scanned report. | | | | | | | | | | A | | A | | /jc1// | | cc: | + + documented in this encounter Visit Diagnoses + + | Diagnosis | + + | Endometriosis of pelvic peritoneum | + + documented in this encounter"
--- OUTSIDE RECORDS SUMMARY | ~2020-01-13 | XMS | Encounter Summary ---
Demographics + + + | Address | [address] | | | [place] [address] | + + + | Home Phone | | + + + | Preferred Language | Unknown | + + + | Marital Status | Single | + + + | Episcopalian Affiliation | 1013 | + + + | Race | Unknown | + + + | Ethnic Group | Unknown | + + + Author + + + | Author | [facility] | | | and [place] | + + + | Organization | [facility] | | | and [place] [...] Team Providers + +------+ + | Care Carton Maker Name | Role | Phone | + +------+ + | Mohinder Gage DO | PCP | | + +------+ + Reason for Visit + + + | Reason | Comments | + + + | Tachycardia | | + + + | Pain | generalized body pain | + + + Encounter Details +--------+ + + + + | Date | Type | Department | Care Team | Description | +--------+ + + + + | 11/30/ | Emergency | [facility] | Pawel Clay, | 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 | | [facility]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 [address] | intoxication (HCC) | | | | CENTER [address] | [place] | (Primary Dx); Panic | | | | [place] | [address] | attack | | | | [address] | | | | | | [phone] | | | +--------+ + + + [...] + + + | Blood Pressure | 105/60 | 12/01/2019 6:55 AM | | | | | PDT | | + + + + + | Pulse | 110 | 12/01/2019 6:54 AM | | | | | PDT | | + + + + + | Temperature | 36.3 C (97.3 F) | 12/01/2019 4:10 AM | | | | | PDT | | + + + + + | Respiratory Rate | 26 | 12/01/2019 4:10 AM | | | | | PDT | | + + + + + | Oxygen Saturation | 98% | 12/01/2019 6:54 AM | | | | | PDT | | + + + + + | Inhaled Oxygen | - | - | | | Concentration | | | | + + + + + | Weight | 49.9 kg (110 lb) | 12/01/2019 4:10 AM | | | | | PDT | | + + + + + | Height | 152.4 cm (5') | 12/01/2019 4:10 AM | | | | | PDT | | + + + + + | Body Mass Index | 21.48 | 12/01/2019 4:10 AM | | | | | PDT | | + + + + + documented in this encounter Discharge Instructions AttachmentsThe following attachments cannot be sent through Care Everywhere.Methamphetamine Abuse and Addiction, Understanding (Paraguayan)Panic Attack (Paraguayan)documented in this encoun ter Medications at Time of Discharge + + [...] INFORMATION | MARGAUX | Routin | | 12/01/2019 4:06 AM | | EXCHANGE | | e | | PDT | + +------+--------+ + + documented as of this encounter Procedures + +--------+ + + + | Procedure Name | Priori | Date/Time | Associated Diagnosis | Comments | | | ty | | | | + +--------+ + + + | CBC WITH | STAT | 12/01/2019 | | Results for this | | DIFFERENTIAL | | 5:25 AM | | procedure are in the | | | | PDT | | results section. | + +--------+ + + + | ALCOHOL | STAT | 12/01/2019 | | Results for this | | | | 5:25 AM | | procedure are in the | | | | PDT | | results section. | + +--------+ + + + | ACETAMINOPHEN LEVEL | STAT | 12/01/2019 | | Results for this | | | | 5:25 AM | | procedure are in the | | | | PDT | | results section. | + +--------+ + + + | SALICYLATE LEVEL | STAT | 12/01/2019 | | Results for this | | | | 5:25 AM | | procedure are in the | | | | PDT | | results section. | + +--------+ + + + | COMPREHENSIVE | STAT | 12/01/2019 | | Results for this | | METABOLIC PANEL | | 5:25 AM | | procedure are in the | | | | PDT | | results section. | + +--------+ + + + | XR CHEST AP PORTABLE | STAT | 12/01/2019 | | Results for this | | | | 4:59 AM | | procedure are in the | | | | PDT | | results section. | + +--------+ + + + | DRUGS OF ABUSE, | STAT | 12/01/2019 | | Results for this | | SCREEN, URINE | | 4:59 AM | | procedure are in the | | | | PDT | | results section. | + +--------+ + + + | ECG 12 LEAD | Routin | 12/01/2019 | | Results for this | | | e | 4:14 AM | | procedure are in the | | | | PDT | | results section. | + +--------+ + + + | ED INFORMATION | Routin | 12/01/2019 | | | | EXCHANGE | e | 4:06 AM | | | | | | PDT | | | + +--------+ + + + +---+--------+ | | | | | Proced | | | ure | | | Note - | | | Sky, | | | Lab In | | | | | | Hlseve | | | n - | | | 03/29/ | | | 2020 | | | 4:07 | | | AM PDT | | | | | | [...] | | | FICATI | | | ON?03/ | | | 29/202 | | | 0 | | | 04:05? | | | STROE, | | | | | | NATALY | | | | | | J?MRN: | | | | | | [id number] | | | [id number] | | | riteri | | | a Met | | | 4 | | | [...] | | | Guidel | | | inesTh | | | ere | | | are | | | curren | | | tly no | | | ED | | | Care | | | Guidel | | | tameka | | | for | | | this | | | patien | | | t. | | | Please | | | check | | | your | | | facili | | | ty's | | | medica | | | l | | | record | | | s | | | system | | | .Presc | | | riptio | | | n Drug | | | | | | Report | | | (12 | | | Mo.)Rx | | | | | | Detail | | | sFill | | | Date | | | Drug | | | Descri | | | ption | | | Qty. | | | Prescr | | | iber | | | CS MED | | | | | | 2019-0 | | | 4-23 | | | PROMET | | | HAZINE | | | -CODEI | | | NE | | | SYRUP | | | 120 | | | MICHAE | | | L | | | MCMURT | | | RY 5 0 | | | Rx | | | Summar | | | yMetri | | | c | | | Count | | | CS | | | II-V | | | Rx 1 | | | CS-II | | | Rx 0 | | | Quanti | | | ty | | | Dispen | | | sed | | | 120 | | | Unique | | | | | | Prescr | | | ibers | | | 1 | | | Unique | | | | | | Pharma | | | cies 1 | | | | | | Benzos | | | 0 | | | Opioid | | | [...] | | 1 0 | | | [facility] | | | | | | Region | | | al | | | Medica | | | l | | | Center | | | 2 0 | | | Provid | | | ence | | | St. | | | [place] | | | Medica | | | l | | | Center | | | 9 0 | | | Total | | | 12 0 | | | Note: | | [...] | | out | | | of 13 | | | in the | | [...] | | | int | | | Mar | | | 29, | | | 2020 | | | Provid | | | ence | | | St[facility] | | | [place] | [facility] | | | [place] | | | [place] | | | Emerge | | | ncy | | | | | | CP,sob | | | Mar | | | [...] | | | ified | | | Mar | | | 14, | | | 2020 | | | [facility] | | | | | | Region | | | al | | | [facility] | | | [place] | | | [place] | | | Emerge | | | ncy | | | Arm | | | Injury | | | | | | Superf | | | icial | | | foreig | | | n body | | | of | | | left | | | upper | | | arm, | | | initia | | | l | | | encoun | | | ter | | | | | | Contac | | | t with | | | | | | needle | | | | | | (sewin | | | g), | | | initia | | | l | | | encoun | | | ter | | | | | | Encoun | | | ter | | | for | | | immuni | | | zation | | | Mar | | | 13, | | | 2020 | | | Good | | | Shephe | | | rd | | | Health | | | | | | [place] | | | [place] | | | Emerge | | | ncy | | | FB | | | STUCK | | | IN ARM | | | | | | Other | | | psycho | | | active | | | | | | substa | | | nce | | | use, | | | unspec | | | ified, | | | | | | uncomp [...] | | | ter | | | Feb | | | 13, | | | 2020 | | | Provid | | | ence | | | St. | | | [place] | | | [facility] | | | [place] | | | [place] | | | Emerge | | | ncy | | | | | | Medica | | | l | | | Proble | | | m | | | (Minor | | | ) | | | Alcoho | | | l use, | | | | | | unspec | | | ified | | | with | | | intoxi | | | cation | | | , | | | uncomp | | | licate | | | d Feb | | | 3, | | | 2020 | | | Provid | | | ence | | | St. | | | [place] | | | [facility] | | | [place] | | | [place] | | | Emerge | | | ncy | | | | | | Kidney | | | | | | infect | | | ion? | | | | | | Urinar | | | y Pain | | | | | | Tubulo | | | -inter | | | stitia | | | l | | | nephri | | | tis, | | | not | | | specif | | | ied as | | | acute | | | or | | | fender repairer | | | Dec | | | 19, | | | 2019 | | | Provid | | | ence | | | St. | | | [place] | | | [facility] | | | [place] | | | [place] | | | Emerge | | | ncy | | | lt | | | flank | | | pain | | | | | | Flank | | | Pain | | | | | | Unspec | | | ified | | | ovaria | | | n | | | cyst, | | | unspec | | | ified | | | side | | | Oct | | | 28, | | | 2019 | | | Provid | | | ence | | | St. | | | [place] | | | [facility] | | | [place] | | | [place] | | | Emerge | | | ncy | | | | | | chills | | | , | | | light | | | headed | | | , | | | foggy | | | | | | Lighth | | | eaded | | | | | | Drug / | | | | | | Alcoho | | | l | | | Assess | | | ment | | | | | | Disori | | | entati | | | on, | | | unspec | | | ified | | | | | | Other | | | stimul | | | ant | | | depend | | | ence, | | | uncomp | | | licate | | | d Oct | | | 27, | | | 2019 | | | Provid | | | ence | | | St. | | | [place] | | | [facility] | | | [place] | | | [place] | | | Emerge | | | ncy | | | | | | Numbne | | | ss | | | Other | | | stimul | | | ant | | | use, | | | unspec | | | ified | | | with | | | intoxi | | | cation | | | , | | | unspec | | | ifi | | | Other | | | | | | stimul | | | ant | | | depend | | | ence, | | | uncomp | | | licate | | | d | | | [place]arest | | | hesia | | | of | | | skin | | | Recent | | | [...] | | | t | | | [facility] | | | | | | [facility] | | | [facility] | | | | | | [facility] | | | L | | | CENTER | | | | | | Primar | | | y Care | | | | | | [phone] | | | [phone] | | | 11 | | | Curren | | | t | | | [place]M[address] | | | TON | | | GOOD | | | SHEPHE | | | RD | | | Primar | | | y Care | | | | | | Curren [...] | | | otify/ | | | [id number] | | | [phone] | | | [phone] | | | [phone] | | | [id number] | | | [id number] | | | | | | PLEASE [...] m | +---+--------+ documented in this encounter Results Salicylate Level (12/01/2019 5:25 AM PDT) + +-------+ + + + | Component | Value | Ref Range | Performed | Pathologist | | | | | At | Signature | + +-------+ + + + | Salicylate | <3.0 | <30.1 mg/dL | [facility] | | | Level | | | [facility] | | | | | | [facility] - | | | | | | LABORATORY | | + +-------+ + + + + + | Specimen | + + | Blood | + + + + + + + | Performing | Address | City/State/Zipcode | Phone Number | | Organization | | | | + + + + + | [facility] | [address] | [place] | [phone] | | [facility] | | [address] | | | - LABORATORY | | | | + + + + + Acetaminophen Level (12/01/2019 5:25 AM PDT) + +-------+ + + + | Component | Value | Ref Range | Performed | Pathologist | | | | | At | Signature | + +-------+ + + + | Acetaminoph | <2 | <=2 ug/mL | [facility] | | | en Level | | | [facility] | | | | | | [facility] | | | | | | CENTER - | | | | | | LABORATORY | | + +-------+ + + + + + | Specimen | + + | Blood | + + + + + + + | Performing | Address | City/State/Zipcode | Phone Number | | Organization | | | | + + + + + | [facility] | [address] | [place] | [phone] | | [facility] | | [address] | | | - LABORATORY | | | | + + + + + Ethanol (12/01/2019 5:25 AM PDT) + +-------+ + + + | Component | Value | Ref Range | Performed | Pathologist | | | | | At | Signature | + +-------+ + + + | ALCOHOL, | <10 | <10 mg/dL | [facility] | | | SERUM/PLASM | | | [facility] | | | A | | | MEDICAL | | | | | | CENTER - | | | | | | LABORATORY | | + +-------+ + + + + + | Specimen | + + | Blood | + + + + + + + | Performing | Address | City/State/Zipcode | Phone Number | | Organization | | | | + + + + + | [facility] | [address] | [place] | [phone] | | [facility] | | [address] | | | - LABORATORY | | | | + + + + + Comprehensive Metabolic Panel (12/01/2019 5:25 AM PDT) + + + + + + | Component | Value | Ref Range | Performed | Pathologist | | | | | At | Signature | + + + + + + | Na | 141 | 136 - 145 | [facility] | | | | | mmol/L | [facility] | | | | | | MEDICAL | | | | | | CENTER - | | | | | | LABORATORY | | + + + + + + | K | 3.6 | 3.4 - 5.1 | [facility] | | | | | mmol/L | [facility] | | | | | | MEDICAL | | | | | | CENTER - | | | | | | LABORATORY | | + + + + + + | Cl | 110 (H) | 98 - 107 mmol/L | [facility] | | | | | | [facility] | | | [facility] | | [facility] | | | | | | CENTER - | | | | | | LABORATORY | | + + + + + + | CO2 | 21 | 20 - 31 mmol/L | [facility] | | | | | | [facility] | | | | | | [facility] | | | | | | CENTER - | | | | | | LABORATORY | | + + + + + + | Anion Gap | 10 | 3 - 16 mmol/L | [facility] | | | | | | [facility] | | | | | | [facility] | | | | | | CENTER - | | | | | | LABORATORY | | + + + + + + | Glucose | 144 (H) | 60 - 106 mg/dL | [facility] | | | | | | [facility] | | | | | | [facility]ICAL | | | | | | CENTER - | | | | | | LABORATORY | | + + + + + + | BUN | 9 | 9 - 23 mg/dL | [facility] | | | | | | [facility] | | | | | | [facility] | | | | | | CENTER - | | | | | | LABORATORY | | + + + + + + | Creatinine | 0.56 | 0.55 - 1.02 | [facility] | | | | | mg/dL | [facility] | | | | | | [facility] | | | | | | CENTER - | | | | | | LABORATORY | | + + + + + + | eGFR if not | >60Comment: GLOMERULAR | >=60 | [facility] | | | | FILTRATION | mL/min/1.73m2 | [facility] | | | RWANDAN | RATE,ESTIMATED | | MEDICAL | | | | mL/min/1.06j7Nxex than | | CENTER - | | | | 60 Chronic kidney | | LABORATORY | | | | disease,if found over a | | | | | | 3-month period.Less than | | | | | | 15 Kidney failureFor | | | | | | | | | | | | Americans,multiply the | | | | | | calculated GFR by 1.21. | | | | | | | | | | + + + + + + | Calcium | 9.0 | 8.7 - 10.4 | [facility] | | | | | mg/dL | [facility] | | | | | | MEDICAL | | | | | | CENTER - | | | | | | LABORATORY | | + + + + + + | Albumin | 4.3 | 3.2 - 4.8 g/dL | [facility] | | | | | | [facility] | | | | | | MEDICAL | | | | | | CENTER - | | | | | | LABORATORY | | + + + + + + | Bilirubin | <0.2 (L) | 0.3 - 1.2 mg/dL | [facility] | | | Total | | | [facility] | | | | | | [facility] | | | | | | CENTER - | | | | | | LABORATORY | | + + + + + + | Total | 6.6 | 5.7 - 8.2 g/dL | [facility] | | | Protein | | | [facility] | | | | | | [facility]ICAL | | | | | | CENTER - | | | | | | LABORATORY | | + + + + + + | AST | 24 | 0 - 34 U/L | [facility] | | | | | | [facility] | | | | | | [facility]ICAL | | | | | | CENTER - | | | | | | LABORATORY | | + + + + + + | ALT | 28 | 10 - 49 U/L | [facility] | | | | | | [facility] | | | | | | [facility]ICAL | | | | | | CENTER - | | | | | | LABORATORY | | + + + + + + | Alkaline | 68 | 46 - 116 U/L | [facility] | | | Phosphatase | | | [facility] | | | | | | [facility]ICAL | | | | | | CENTER - | | | | | | LABORATORY | | + + + + + + | Globulin | 2.3 | 2.1 - 3.8 g/dL | [facility] | | | | | | [facility] | | | | | | MEDICAL | | | | | | CENTER - | | | | | | LABORATORY | | + + + + + + | Albumin/Juana | 1.9 | 0.8 - 1.9 | [facility] | | | bulin Ratio | | | [facility] | | | | | | MEDICAL | | | | | | CENTER - | | | | | | LABORATORY | | + + + + + + | BUN/Creatin | 16.1 | | [facility] | | | ine Ratio | | | [facility] | | | | | | MEDICAL | | | | | | CENTER - | | | | | | LABORATORY | | + + + + + + + + | Specimen | + + | Blood | + + + + + + + | Performing | Address | City/State/Zipcode | Phone Number | | Organization | | | | + + + + + | [facility] | [address] | [place] | [phone] | | [facility] | | [address] | | | - LABORATORY | | | | + + + + + CBC with Differential (12/01/2019 5:25 AM PDT) + + + + + + | Component | Value | Ref Range | Performed | Pathologist | | | | | At | Signature | + + + + + + | WBC | 9.6 | 4.0 - 11.0 K/uL | [facility] | | | | | | [facility] | | | | | | MEDICAL | | | | | | CENTER - | | | | | | LABORATORY | | + + + + + + | RBC | 3.87 | 3.70 - 5.20 | [facility] | | | | | M/uL | [facility] | | | | | | MEDICAL | | | | | | CENTER - | | | | | | LABORATORY | | + + + + + + | Hemoglobin | 12.6 | 11.5 - 16.0 | [facility] | | | | | g/dL | [facility] | | | | | | [facility]ICAL | | | | | | CENTER - | | | | | | LABORATORY | | + + + + + + | Hematocrit | 36.9 | 34.0 - 47.0 % | [facility] | | | | | | [facility] | | | | | | [facility]ICAL | | | | | | CENTER - | | | | | | LABORATORY | | + + + + + + | MCV | 95.3 | 83.0 - 101.0 fL | [facility] | | | | | | [facility] | | | | | | [facility] | | | | | | CENTER - | | | | | | LABORATORY | | + + + + + + | MCH | 32.6 | 28.0 - 35.0 pg | [facility] | | | | | | [facility] | | | | | | [facility] | | | | | | CENTER - | | | | | | LABORATORY | | + + + + + + | MCHC | 34.1 | 32.0 - 36.0 | [facility] | | | | | g/dL | [facility] | | | | | | MEDICAL | | | | | | CENTER - | | | | | | LABORATORY | | + + + + + + | RDW-CV | 12.4 | <15.0 % | [facility] | | | | | | [facility] | | | | | | [facility] | | | | | | CENTER - | | | | | | LABORATORY | | + + + + + + | RDW-SD | 43.5 | 35.1 - 46.3 fL | [facility] | | | | | | [facility] | | | | | | MEDICAL | | | | | | CENTER - | | | | | | LABORATORY | | + + + + + + | Platelet | 284 | 140 - 440 K/uL | [facility] | | | Count | | | [facility] | | | | | | [facility]ICAL | | | | | | CENTER - | | | | | | LABORATORY | | + + + + + + | MPV | 9.4 | 6.5 - 12.4 fL | [facility] | | | | | | [facility] | | | | | | [facility]ICAL | | | | | | CENTER - | | | | | | LABORATORY | | + + + + + + | % | 71.6 | 45.0 - 82.0 % | [facility] | | | Neutrophils | | | [facility] | | | | | | MEDICAL | | | | | | CENTER - | | | | | | LABORATORY | | + + + + + + | % | 21.6 | 20.0 - 45.0 % | [facility] | | | Lymphocytes | | | [facility] | | | | | | MEDICAL | | | | | | CENTER - | | | | | | LABORATORY | | + + + + + + | % Monocytes | 4.6 | 4.0 - 12.0 % | [facility] | | | | | | [facility] | | | | | | [facility]ICAL | | | | | | CENTER - | | | | | | LABORATORY | | + + + + + + | % | 1.4 | 0.0 - 5.0 % | [facility] | | | Eosinophils | | | [facility] | | | | | | MEDICAL | | | | | | CENTER - | | | | | | LABORATORY | | + + + + + + | % Basophils | 0.6 | 0.0 - 1.0 % | [facility] | | | | | | [facility] | | | | | | MEDICAL | | | | | | CENTER - | | | | | | LABORATORY | | + + + + + + | % Immature | 0.2Comment: For | 0.0 - 0.4 % | [facility] | | | Granulocyte | patients, use the | | [facility] | | | s | special reference ranges | | MEDICAL | | | | listed below. | | CENTER - | | | | | | LABORATORY | | + + + + + + | Absolute | 6.87 | 1.80 - 8.50 | [facility] | | | Neutrophils | | K/uL | [facility] | | | | | | MEDICAL | | | | | | CENTER - | | | | | | LABORATORY | | + + + + + + | Absolute | 2.07 | 0.60 - 3.20 | [facility] | | | Lymphocytes | | K/uL | [facility] | | | | | | [facility]ICAL | | | | | | CENTER - | | | | | | LABORATORY | | + + + + + + | Absolute | 0.44 | 0.00 - 1.00 | [facility] | | | Monocytes | | K/uL | [facility] | | | | | | MEDICAL | | | | | | CENTER - | | | | | | LABORATORY | | + + + + + + | Absolute | 0.13 | 0.00 - 0.40 | [facility] | | | Eosinophils | | K/uL | [facility] | | | | | | [facility]ICAL | | | | | | CENTER - | | | | | | LABORATORY | | + + + + + + | Absolute | 0.06 | 0.00 - 0.10 | [facility] | | | Basophils | | K/uL | [facility] | | | | | | MEDICAL | | | | | | CENTER - | | | | | | LABORATORY | | + + + + + + | Absolute | 0.02Comment: For | 0.00 - 0.03 | [facility] | | | Immature | patients, use | K/uL | [facility] | | | Granulocyte | the special reference | | MEDICAL | | | s | ranges listed below. | | CENTER - | | | | | | LABORATORY | | + + + + + + | % nRBC | 0 | 0 - 2 per 100 | [facility] | | | | | WBCs | [facility] | | | | | | MEDICAL | | | | | | CENTER - | | | | | | LABORATORY | | + + + + + + | Absolute | 0.00 | 0.00 - 0.01 | [facility] | | | nRBC | | K/uL | [facility] | | | | | | MEDICAL | | | | | | CENTER - | | | | | | LABORATORY | | + + + + + + + + | Specimen | + + | Blood | + + + + + | Narrative | Performed At | + + + | IMMATURE GRANULOCYTES - For patients, use the following | [facility] | | reference ranges: Trim. Absolute (K/uL) Percentage (%) | [facility] | | 1st 0.003-0.091 K/uL 0.0-0.9% 2nd 0.007-0.247 K/uL | [facility] | | 0.1-2.0% 3rd 0.018-0.456 K/uL 0.1-2.0% | - LABORATORY | + + + + + + + + | Performing | Address | City/State/Zipcode | Phone Number | | Organization | | | | + + + + + | [facility] | [address] | [place] | [phone] | | [facility] | | [address] | | | - LABORATORY | | | | + + + + + XR Chest AP Portable (12/01/2019 4:59 AM PDT) + + | Specimen | + + | | + + + + + | Impressions | Performed At | + + + | No acute disease. Dictated and Signed by: Julian Cee MD | [facility] | | Electronically signed: 12/01/2019 12:19 PM | | + + + + + + | Narrative | Performed At | + + + | CLINICAL INFORMATION: TACHYCARDIA PAIN. COMPARISON: None | [facility] | | available. FINDINGS: Portable frontal chest radiograph | | | Lungs: No focal airspace disease, pleural effusion, or pneumothorax. | | | Heart/mediastinum: Cardiac silhouette is of normal size. Central | | | pulmonary vasculature has a normal appearance. Bones: No acute | | | osseous abnormality appreciated. | | + + + + + | Procedure Note | + + | Sky, Rad Results In - 12/01/2019 12:22 PM PDT | | CLINICAL INFORMATION: TACHYCARDIA | | PAIN. | | | | COMPARISON: None available. | | | | FINDINGS: | | Portable frontal chest radiograph | | | | Lungs: No focal airspace disease, pleural effusion, or pneumothorax. | | | | Heart/mediastinum: Cardiac silhouette is of normal size. Central pulmonary | | vasculature has a normal appearance. | | | | Bones: No acute osseous abnormality appreciated. | | | | IMPRESSION: | | No acute disease. | | | | Dictated and Signed by: Julian Cee MD | | Electronically signed: 12/01/2019 12:19 PM | + + + +---------+ + + | Performing | Address | City/State/Zipcode | Phone Number | | Organization | | | | + +---------+ + + | [facility] | | | | + +---------+ + + Drugs of Abuse, Screen, Urine (12/01/2019 4:59 AM PDT) + + + + + + | Component | Value | Ref Range | Performed | Pathologist | | | | | At | Signature | + + + + + + | Amphetamine | Positive (A) | Negative | [facility] | | | Screen, | | | [facility] | | | Urine | | | MEDICAL | | | | | | CENTER - | | | | | | LABORATORY | | + + + + + + | Barbiturate | Negative | Negative | [facility] | | | s Screen, | | | [facility] | | | Urine | | | MEDICAL | | | | | | CENTER - | | | | | | LABORATORY | | + + + + + + | Benzodiazep | Negative | Negative | [facility] | | | tameka | | | [facility] | | | Screen, | | | MEDICAL | | | Urine | | | CENTER - | | | | | | LABORATORY | | + + + + + + | Cannabinoid | Negative | Negative | [facility] | | | s Screen, | | | [facility] | | | Urine | | | MEDICAL | | | | | | CENTER - | | | | | | LABORATORY | | + + + + + + | Cocaine | Negative | Negative | [facility] | | | Screen, | | | [facility] | | | Urine | | | MEDICAL | | | | | | CENTER - | | | | | | LABORATORY | | + + + + + + | Methadone | Negative | Negative | [facility] | | | Screen, | | | [facility] | | | Urine | | | MEDICAL | | | | | | CENTER - | | | | | | LABORATORY | | + + + + + + | Opiates | Negative | Negative | [facility] | | | Screen, | | | [facility] | | | Urine | | | MEDICAL | | | | | | CENTER - | | | | | | LABORATORY | | + + + + + + + + | Specimen | + + | Urine - Urine | | specimen (specimen) | + + + + + + + | Performing | Address | City/State/Zipcode | Phone Number | | Organization | | | | + + + + + | [facility] | [address] | [place] | [phone] | | [facility] | | [id number] | | | - LABORATORY | | | | + + + + + ECG 12 lead (12/01/2019 4:14 AM PDT) + + + + + + | Component | Value | Ref Range | Performed | Pathologist | | | | | At | Signature | + + + + + + | VENTRICULAR | 141 | BPM | [facility] | | | RATE EKG | | | | | + + + + + + | ATRIAL RATE | 141 | BPM | [facility] | | + + + + + + | P-R | 126 | ms | [facility] | | | INTERVAL | | | | | + + + + + + | QRS | 70 | ms | [facility] | | | DURATION | | | | | + + + + + + | Q-T | 354 | ms | [facility] | | | INTERVAL | | | | | + + + + + + | Q-T | 542 | ms | [facility] | | | INTERVAL | | | | | | (CORRECTED) | | | | | + + + + + + | QRS AXIS | 82 | degrees | [facility] | | + + + + + + | T AXIS | -30 | degrees | [facility] | | + + + + + + | INTERPRETAT | Sinus tachycardiaDiffuse | | [facility] | | | ION TEXT | Nonspecific ST and T | | | | | | wave abnormality which | | | | | | may be secondary to rate | | | | | | and/or ischemiaAbnormal | | | | | | ECGWhen compared with | | | | | | ECG of 01-JUL-2019 | | | | | | 10:13,Significant | | | | | | changes have | | | | | | occurredConfirmed by | | | | | | MEI REDMOND MD ([id number]) | | | | | | on 12/04/2019 6:37:57 AM | | | | + + + + + + + + | Specimen | + + | | + + + + + | Narrative | Performed At | + + + | | | + + + + +---------+ + + | Performing | Address | City/State/Zipcode | Phone Number | | Organization | | | | + +---------+ + + | [facility] | | | | + +---------+ + + documented in this encounter Visit Diagnoses + + | Diagnosis | + + | Methamphetamine intoxication (HCC) - Primary | + + | Panic attack Panic disorder without agoraphobia | + + documented in this encounter Administered Medications + +--------+ +------+------+------+ | Medication Order | MAR | Action | Dose | Rate | Site | | | Action | Date | | | | + +--------+ +------+------+------+ | LORazepam (ATIVAN) tablet 2 mg | Given | 12/01/19 | 2 mg | | | | 2 mg, Oral, ONCE, 12/01/19 at | | 20 4:30 | | | | | 0430, For 1 dose | | AM PDT | | | | + +--------+ +------+------+------+ +---+---+ | | | +---+---+ + +-------+ +------+---+---+ | OLANZapine zydis (zyPREXA | Given | 12/01/19 | 5 mg | | | | ZYDIS) disintegrating tablet 5 mg | | 20 4:37 | | | | | 5 mg, Oral, ONCE, 12/01/19 | | AM PDT | | | | | at 0430, For 1 dose | | | | | | + +-------+ +------+---+---+ +---+---+ | | | +---+---+ documented in this encounter"
--- OUTSIDE RECORDS SUMMARY | ~2020-01-13 | XMS | Encounter Summary ---
Demographics + + + | Address | [address] | | | [place] [address] | + + + | Home Phone | | + + + | Preferred Language | Unknown | + + + | Marital Status | Single | + + + | Restoration Affiliation | CHR | + + + | Race | White | + + + | Ethnic Group | Not or | + + + Author + + + | Author | [facility] | + + + | Organization | [facility] | + + + | Address | Unknown | + + + | Phone | Unavailable | + + + Support + + +---------+ + | Name | Relationship | Address | Phone | + + +---------+ + | Radha Soria | ECON | Unknown | | + + +---------+ + Care Team Providers + +------+ + | Care Media Buyer Name | Role | Phone | + +------+ + | No Pcp Per Patient | PCP | Unavailable | + +------+ + Reason for Visit +--------+ + | Reason | Comments | +--------+ + | Pain | | +--------+ + Encounter Details +--------+ + + + + | Date | Type | Department | Care Team | Description | +--------+ + + + + | 12/10/ | Telephone | [facility] | Mickie Gottlieb, | Pain | | 2020 | IP | Department [address] | [address] | | | | | [address] | [address] | | | | | [facility] | [place], [place] | | | | | [place], [place] | [address] | | | | | [address] | [phone] | | | | | [phone] | | | +--------+ + + + + Social History + +-------+ +--------+------+ | Tobacco Use | Types | Packs/Day | Years | Date | | | | | Used | | + +-------+ +--------+------+ | Current Every Day | | | | | | Smoker | | | | | + +-------+ +--------+------+ + +---+---+---+ | Smokeless Tobacco: | | | | | Never Used | | | | + +---+---+---+ + + +---------+ + | Alcohol Use | Drinks/Week | oz/Week | Comments | + + +---------+ + | Yes | | | 2 drinks a day | + + +---------+ + + + [...] recent travel history available. | + + + + + + | COVID-19 Exposure | Response | Date Recorded | + + + + | In the last month, have you been in contact | No / Unsure | 12/11/2019 11:31 AM | | with someone who was confirmed or | | PDT | | suspected to have Coronavirus / COVID-19? | | | + + + + documented as of this encounter Plan of Treatment Not on filedocumented as of this encounter Visit Diagnoses Not on filedocumented in this encounter"
--- OUTSIDE RECORDS SUMMARY | ~2020-01-13 | XMS | Encounter Summary ---
Demographics + + + | Address | [address] | | | [place] [address] | + + + | Home Phone | | + + + | Preferred Language | Unknown | + + + | Marital Status | Single | + + + | Confucianism Affiliation | 1013 | + + + | Race | Unknown | + + + | Ethnic Group | Unknown | + + + Author + + + | Author | [facility] | | | and [place] | + + + | Organization | [facility] | | | and [place] | [...] Team Providers + +------+ + | Care Dental Chair Assembler Name | Role | Phone | + +------+ + | Katy Sanford MD | PCP | | + +------+ + Reason for Referral Evaluate & Treat (Routine) +--------+ + + + + + | Status | Reason | Specialty | Diagnoses / | Referred By | Referred To | | | | | Procedures | Contact | Contact | +--------+ + + + + + | Denied | Specialty | Neurology | Diagnoses | Juvenal, | Lu, | | | Services | | Thoracic | MD aKty | Felice Urbina MD | | | Required | | outlet | [address] | | | | syndrome | [address] [place] | [place] | | | | | associated | [place], [place] | [place] [address] | | | | | with | [id number] | [address] [place] | | | | | cervical rib | Phone: | [place], [place] | | | | | | [phone] | [address] Phone: | | | | | | Fax: | [phone] | | | | | | [phone] | Fax: | | | | | | | [phone] | +--------+ + + + + + Diagnostic/Screening (Routine) +--------+--------+ + + + + | Status | Reason | Specialty | Diagnoses / | Referred By | Referred To | | | | | Procedures | Contact | Contact | +--------+--------+ + + + + | Denied | | Radiology | Diagnoses | Juvenal, | [facility] | | | | | Thoracic | MD Katy | [address] | | | | | outlet | [address] | [place], | | | | | syndrome | [address] [place] | [place] | | | | | associated | [place] | [address] | | | | | with | [address] | Phone: | | | | | cervical rib | Phone: | [phone] | | | | | Procedures | [phone] | Fax: | | | | | MRI | Fax: | [phone] | | | | | Cervical | [phone] | | | | | | Spine wo | | | | | | | Contrast | | | +--------+--------+ + + + + Reason for Visit + + + | Reason | Comments | + + + | Establish Care | TOS flare up | + + + | Bronchitis | | + + + Encounter Details +--------+---------+ + + + | Date | Type | Department | Care Team | Description | +--------+---------+ + + + | 03/05/ | Office | [facility] | Katy Sanford MD | Health care | | 2018 | Visit | [facility] [place] | [address] | maintenance (Primary | | | | [address] | [place] | Dx); Need for | | | | [place] | [address] | pneumococcal | | | | [address] | | vaccination; Need | | | | [phone] | | for Tdap | | | | | | vaccination; | | | | | | Thoracic outlet | | | | | | syndrome associated | | | | | | with cervical rib; | | | | | | Substance abuse; | | | | | | Acute bronchitis due | | | | | | to other specified | | | | | | organisms | +--------+---------+ + + + Social History + + [...] | | | + +---+---+---+ + + | Tobacco Cessation: Ready to Quit: Yes; Counseling Given: Yes | + + + + +---------+ + | Alcohol Use [...] + + + | Blood Pressure | 130/60 | 03/05/2018 10:24 AM | | | | | PDT | | + + + + + | Pulse | 96 | 03/05/2018 10:24 AM | | | | | PDT | | + + + + + | Temperature | 36.4 C (97.5 F) | 03/05/2018 10:24 AM | | | | | PDT | | + + + + + | Respiratory Rate | 20 | 03/05/2018 10:24 AM | | | | | PDT | | + + + + + | Oxygen Saturation | 98% | 03/05/2018 10:24 AM | | | | | PDT | | + + + + + | Inhaled Oxygen | - | - | | | Concentration | | | | + + + + + | Weight | 61.4 kg (135 lb 6.4 | 03/05/2018 10:24 AM | | | | oz) | PDT | | + + + + + | Height | 152.6 cm (5' 0.08") | 03/05/2018 10:24 AM | | | | | PDT | | + + + + + | Body Mass Index | 26.37 | 03/05/2018 10:24 AM | | | | | PDT | | + + + + + documented in this encounter Patient Instructions Patient Instructions Katy Sanford MD - 03/05/2018 11:22 AM PDTFormatting of this note mi ght be different from the original. Return in about 6 weeks (around 04/16/2018) for thoracic outlet syndrome follow up. If you have any questions, please call us [phone]. Referrals: During your office today we have ordered referrals for you - MRI and Neurology-. The referr al will be reviewed by our Insurance Authorization Coordinators. Once approved the order annette l be sent to the referred providers office. The referred providers office will contact you t o schedule. If you have not heard to schedule your referral/s within 10 business days, gordy e call our Referral Supervisor [employer] at [phone] to check on the status of the referral authori amilcar. Prescription Refill Notice: All prescription refill requests should be made through your pharmacy. Please allow 24-48 business hours to process refill requests. No early refills will be given for controlled substances. Cancellation/Re-Scheduling/Late Arrivals: Please arrive 15 minutes prior to your scheduled appointment time. Arrivals beyond 15 minut es late will be considered a "no-show" and you may be asked to reschedule. Please notify this office 24 hours prior to cancellation or re-scheduling of your appointme nt. Addiction: Ask Yourself These Questions Ask yourself the following questions. The answers can help you see where you might have pro blems caused by substance abuse. Then you can decide whether you re ready to do something about your use. Yes No ? ? Do you ever have trouble remembering things or concentrating on what you re doing bec ause you re thinking about using? ? ? Have you ever broken promises because of your substance use? ? ? Have you ever done things when you were using that you wouldn t normally do? ? ? Have you ever lost a job or had money troubles because of your use? ? ? Do you ever make excuses for your use or lie to hide it? ? ? Does someone make excuses for you when you re hung over? ? ? Do others ever seem embarrassed about your use? ? ? Have your children ever asked you to stop using or been afraid of you when you are usin g? ? ? Has your spouse or a girlfriend or boyfriend ever left you because of your use? ? ? Have you ever had sexual problems that might be caused by your use? ? ? Have you ever had severe shaking, heard voices, or thought you were seeing things after you ve been using? ? ? Have you noticed that you ve gotten sick more often as you use more? ? ? Have you tried to quit but found you just couldn t? If you answer Yes to one or more of these questions, you may need to change or stop y our substance use. Date Last Reviewed: 02/03/201619998208-6757 [email or web address]. [address] [place] [address]. All righ ts reserved. This information is not intended as a substitute for professional medical care. Always follow your healthcare professional's instructions. documented in this encounter Progress Notes Katy Sanford MD - 03/05/2018 10:15 AM PDT Subjective: Patient ID: Nataly Martinez is a 37 y.o. female. Chief Complaint Patient presents with Establish Care TOS flare up Bronchitis HPI Patient present to clinic to establish care today. Patient C/O Possible bronchitis for about 3 weeks. Patient to urgent care and was prescribe d a cough syrup, which controls the cough but she is not getting any better. Patient present to clinic today to establish care. 3 weeks, not going away. Smoker of about 1/2 PPD, for about 17 years, off-on. No MDI use. No wheezing, reports a little bit of chest tightness. Has been using Dayqvil and cough syrup. Having increased phlegm. No fever, except at the begning. 2) Patient was diagnosed with Thoracic outlet syndrome (TOS) in August 2017. She is curre ntly having a flare up on her Left hand. Diagnosed: Dr. Dubose and C-Spine X Rays with cervical ribs 09/2017, not mentioned on the report. C/O LUE: feeling paresthesias ("asleep, but on fire") and in the mornings and at night, fee ls worse and it's very painful, at times she feels like banging her head into the wall, due to pain. This all started happening around August 2017, she "thought it was CTS"... She has done chiropractor and PT and "my whole life changed". She has lost 30 pounds and started working and serving. She completed school. It all started right after she finished school. In the mornings her hands get pretty swollen, but not red, white or blue. Her pulse drops when she raises her arm up. She is currently on Gabapentin 800 mg TID. This seems to be the a TOS and n TOS. Her symptoms are not "bad all the time", but "right now she is having a pretty bad flare up ". She is wanting a narcotic for pain, her last Rx was October. She does smoke THC for anxiety at night. Patient is a 37 y.o. female. She is a previous patient of Dr. Singh and has decided to [facility] due to Location. Her last physical exam was unsure years ago. Last Pap smear was unsure and she no history of abnormal results. Patient's last menstrual period was 03/04/2018. and are regular. . Uses Tubal ligation for birthcontrol. Her last labs were 2016. 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 Sprague OB She is on a regular diet. She exercises no. Today her main concern is that she would like to establish care and bronchitis, and TOS . S he is non-fasting. MTHFr mutation positive. 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 Past Surgical History: Procedure Laterality Date ABDOMINAL EXPLORATION SURGERY 1999 ABDOMINAL EXPLORATION SURGERY 2007 CHOLECYSTECTOMY DILATION AND CURETTAGE OF UTERUS HERNIA REPAIR TUBAL LIGATION Family History Problem Relation Age of Onset Depression Mother Diabetes Mother Cancer Father Depression Father Diabetes Father Heart disease Father High blood pressure Father High cholesterol Father Kidney disease Father Asthma Sister Depression Sister Miscarriages / stillbirths Sister Substance abuse Sister Depression Brother Substance abuse Brother Arthritis Maternal Grandmother Depression Maternal Grandmother Diabetes Maternal Grandmother Arthritis Maternal Grandfather Depression Maternal Grandfather Diabetes Maternal Grandfather COPD Paternal Grandmother Cancer Paternal Grandfather No Known Problems Daughter Asthma Son Learning disability Son Social History Social History Marital status: Single Spouse name: N/A Number of children: N/A Years of education: N/A Social History Main Topics Smoking status: Current Every Day Smoker Packs/day: 0.50 Years: 20.00 Types: Cigarettes Smokeless tobacco: Never Used Alcohol use 0.6 oz/week 1 Cans of beer per week Drug use: No Sexual activity: Not Asked Other Topics Concern None Social History Narrative None Allergies Allergen Reactions Ondansetron Anxiety "Extreme anxiety" AKA "Zofran" Bupropion Anxiety,Other (See Comments) Anger AKA "Wellbutrin" Codeine Other (See Comments) No pain relief, "makes me loopy" Tramadol Other (See Comments) No pain relief, "makes me loopy" Intolerance No active intolerances/contraindications Current Outpatient Prescriptions Medication Sig Dispense Refill albuterol 90 mcg/puff inhaler Inhale 2 puffs into the lungs every 6 hours as needed for Wheezing. 1 Inhaler 0 azithromycin (ZITHROMAX) 250 mg tablet Take 2 tablets by mouth on day 1, and 1 tablet b y mouth every day 6 tablet 0 baclofen (LIORESAL) 20 mg tablet Take 20 mg by mouth as needed. 0 cetirizine (ZYRTEC) 10 mg tablet Take 1 tablet by mouth Daily. 1 gabapentin (NEURONTIN) 800 MG tablet Take 1 tablet by mouth 3 times daily. And an addit ional 1.5 tablets at bedtime 90 tablet 5 HYDROcodone-acetaminophen (NORCO) 5-325 mg per tablet Take 1 tablet by mouth every 8 ho urs as needed for Pain. 20 tablet 0 ibuprofen (ADVIL,MOTRIN) 600 MG tablet take 1 tablet by mouth every 6 hours if needed 0 metFORMIN (GLUCOPHAGE-XR) 500 mg 24 hr tablet 1000 mg day twice daily 0 progesterone (PROMETRIUM) 100 mg capsule Take 1 capsule by mouth Daily. For 10 days eac h month prior to menses 0 promethazine-codeine (PHENERGAN WITH CODEINE) 6.25-10 mg/5 mL syrup Take 5 mLs by mouth 4 times daily as needed for Cough. 120 mL 0 Icnvysxfnzlzitn-BPZC-NE (DAYQUIL MULTI-SYMPTOM COLD/FLU PO) Take by mouth. sertraline (ZOLOFT) 100 mg tablet Take 1 tablet by mouth Daily. 0 spironolactone (ALDACTONE) 50 mg tablet Take 1 tablet by mouth Daily. 1 No current facility-administered medications for this visit. Review of Systems Constitutional: Positive for malaise/fatigue. Negative for fever. HENT: Negative. Negative for congestion, sore throat and tinnitus. Eyes: Negative. Negative for blurred vision and pain. Respiratory: Positive for cough and sputum production. Negative for shortness of breath. Cardiovascular: Positive for leg swelling. Negative for chest pain and palpitations. Gastrointestinal: Positive for diarrhea. Negative for abdominal pain, constipation, heartbu rn, nausea and vomiting. Genitourinary: Negative. Negative for dysuria. Musculoskeletal: Positive for joint pain and myalgias. Negative for back pain. Skin: Negative. Negative for rash. Neurological: Positive for dizziness and tingling. Negative for weakness and headaches. Psychiatric/Behavioral: Positive for depression. The patient is nervous/anxious. The patien t does not have insomnia. Objective: BP 130/60 | Pulse 96 | Temp 36.4 C (97.5 F) (Temporal) | Resp 20 | Ht 1.526 m (5' 0 .08") | Wt 61.4 kg (135 lb 6.4 oz) | LMP 03/04/2018 | SpO2 98% | ? No | BM I 26.37 kg/m Physical Exam General Appearance: Alert, cooperative, no distress, appears stated age Head: Normocephalic, without obvious abnormality, atraumatic Eyes: PERRL, conjunctiva/corneas clear, EOM's intact EARS: TM's are bulging, with decreased light reflex and roa NOSE: congested, stuffy THROAT: erythematous, no exudates, Tonsils not enlarged Neck: Supple, symmetrical, no adenopathy Lungs: No accessory muscle use, breath sounds are clear to auscultation bilaterally, no w heezes, crackles or rhonchi Chest Wall: No tenderness or deformity Heart: Regular rate and rhythm, S1, S2 normal, no murmur, rub or gallop Abdomen: Soft, non-tender Extremities: Extremities normal, atraumatic, no cyanosis, clubbing, or edema Pulses: Radial pulses 2+ and symmetric Skin: Warm and dry Lymph nodes: Cervical and supraclavicular nodes normal Neurologic: Gait normal Assessment/Plan: 1. Health care maintenance (Primary) 2. Need for pneumococcal vaccination 3. Need for Tdap vaccination 4. 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 Will give her short term Rx today and she can find another doctor or quit THC. Will refer her to neurology and there is a consideration for surgical correction as well. Will request C-Spine MRI. Continue Gabapentin 800 mg TID Orders: - MRI Cervical Spine wo Contrast; Future; Expected date: 03/05/2018 - AMB Referral to [facility] [place] 5. Substance abuse Assessment & Plan: THC: aware that only one RX for narcotics short term will be given to her today. If she wan ts to continue, she has to quit THC or find another doctor and the pain clinic (which has th e same criteria). 6. Acute bronchitis due to other specified organisms Assessment & Plan: Will treat her with Zithromax Other orders - Azithromycin; Take 2 tablets by mouth on day 1, and 1 tablet by mouth every day Disp ense: 6 tablet; Refill: 0 - Albuterol Sulfate HFA; Inhale 2 puffs into the lungs every 6 hours as needed for Whee zing. Dispense: 1 Inhaler; Refill: 0 - Hydrocodone-Acetaminophen; Take 1 tablet by mouth every 8 hours as needed for Pain. Dispense: 20 tablet; Refill: 0 - Gabapentin; Take 1 tablet by mouth 3 times daily. And an additional 1.5 tablets at be dtime Dispense: 90 tablet; Refill: 5 The patient was satisfied with the care received and voiced understanding of the issues dis cussed and the plan. Return in about 6 weeks (around 04/16/2018) for thoracic outlet syndrome follow up. Electronically signed by Katy Sanford MD Portions of this report were transcribed using [employer] voice recognition soft hunter. Although effort was made in correcting the errors; grammatical and sound alike errors may still be present. documented in this enc ounter Plan of Treatment + +---------+--------+ + + | Name | Type | Priori | Associated Diagnoses | Order Schedule | | | | ty | | | + +---------+--------+ + + | MRI Cervical Spine | Imaging | Routin | Thoracic outlet | Expected: | | wo Contrast | | e | syndrome associated | 03/05/2018, Expires: | | | | | with cervical rib | 09/05/2018 | + +---------+--------+ + + + + +--------+ + + | Name | Type | Priori | Associated Diagnoses | Order Schedule | | | | ty | | | + + +--------+ + + | Referral to [facility] | Outpatient | Routin | Thoracic outlet | Ordered: 03/05/2018 | | [place] [facility] | Referral | e | syndrome associated | | | [place] | | | with cervical rib | | + + +--------+ + + documented as of this encounter Procedures + +--------+ + + + | Procedure Name | Priori | Date/Time | Associated Diagnosis | Comments | | | ty | | | | + +--------+ + + + | LABS - EXTERNAL SCAN | | 04/07/2017 | | Results for this | | | | 12:00 AM | | procedure are in the | | | | PDT | | results section. | + +--------+ + + + | LABS - EXTERNAL SCAN | | 01/03/2017 | | Results for this | | | | 12:00 AM | | procedure are in the | | | | PDT | | results section. | + +--------+ + + + | PATHOLOGY - EXTERNAL | | 08/14/2013 | | Results for this | | SCAN | | 12:00 AM | | procedure are in the | | | | PST | | results section. | + +--------+ + + + documented in this encounter Results LABS - EXTERNAL SCAN (04/07/2017 12:00 AM PDT) + + + | Narrative | Performed At | + + + | Ordered by an | | | unspecified provider. | | + + + LABS - EXTERNAL SCAN (01/03/2017 12:00 AM PDT) + + + | Narrative | Performed At | + + + | Ordered by an | | | unspecified provider. | | + + + PATHOLOGY - EXTERNAL SCAN (08/14/2013 12:00 AM PST) + + + | Narrative | Performed At | + + + | Ordered by an | | | unspecified provider. 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
--- OUTSIDE RECORDS SUMMARY | ~2020-01-13 | XMS | Encounter Summary ---
Demographics + + + | Address | [address] | | | [place] [address] | + + + | Home Phone | | + + + | Preferred Language | Unknown | + + + | Marital Status | Single | + + + | [employer]ar[employer] Affiliation | 1013 | + + + | Race | Unknown | + + + | Ethnic Group | Unknown | + + + Author + + + | Author | [facility] | | | and [place] | + + + | Organization | [facility] | | | and [place] [...] Team Providers + +------+ + | Care Data Processor Name | Role | Phone | + [...] Description | +--------+--------+ + + + | 07/24/ | Refill | [facility] | Katy Sanford MD | Medication Refill | | 2018 | | [facility] | [address] | | | | | [address] | [place] | | | | | [place], [place] | [address] | | | | | [address] | | | | | | [phone] | | | +--------+--------+ + + + [...]
--- OUTSIDE RECORDS SUMMARY | ~2020-01-13 | XMS | Encounter Summary ---
Demographics + + + | Address | [address] | | | [place] [address] | + + + | Home Phone | | + + + | Preferred Language | Unknown | + + + | Marital Status | Single | + + + | Moravian Affiliation | 1013 | + + + | Race | Unknown | + + + | Ethnic Group | Unknown | + + + Author + + + | Author | [facility] | | | and [place] | + + + | Organization | [facility] | | | and [place] | [...] Team Providers + +------+ + | Care Solid Plasterer Name | Role | Phone | + +------+ + | Katy Sanford MD | PCP | | + +------+ + Reason for Visit + + + | Reason | Comments | + + + | Recall For Services | | | (DMST) | | + + + Encounter Details +--------+ + + + + | Date | Type | Department | Care Team | Description | +--------+ + + + + | 04/26/ | Patient | [facility] | Katy Sanford MD | PH[facility] Preventative | | 2019 | Outreach | [facility] [place] | [address] | Screening | | | | [address] | [place] | | | | | [place] | [address] | | | | | [address] | | | | | | [phone] | | | +--------+ + + + [...] | + +--------+ + + + | EXTERNAL LAB: PAP | Routin | 10/31/2018 | | Results for this | | SMEAR | e | | | procedure are in the | | | | | | results section. | + +--------+ + + + documented in this encounter Results External Lab: PAP Smear (10/31/2018) + + + + + + | Component | Value | Ref Range | Performed | Pathologist | | | | | At | Signature | + + + + + + | Pap Smear, | No evidence of | | | | | External | intraepithelial lesion | | | | | | or malignancy | | | | + + + + + + documented in this encounter Visit Diagnoses Not on filedocumented in this encounter"
--- OUTSIDE RECORDS SUMMARY | ~2020-01-13 | XMS | Encounter Summary ---
Demographics + + + | Address | [address] | | | [place] [address] | + + + | Home Phone | | + + + | Preferred Language | Unknown | + + + | Marital Status | Single | + + + | Sabianism Affiliation | 1013 | + + + | Race | Unknown | + + + | Ethnic Group | Unknown | + + + Author + + + | Author | [facility] | | | and [place] | + + + | Organization | [facility] | | | and [...] Team Providers + +------+ + | Care Search Analyst Name | Role | Phone | + +------+ + PCP | Unavailable | + +------+ + Encounter Details +--------+ + + + + | Date | Type | Department | Care Team | Description | +--------+ + + + + | 03/27/ | [facility] | [facility] | Bhupinder Yadav, | | | 2011 | Encounter | MED CTR EMERGENCY | [address] | | | | | CENTER [address] | [place] | | | | | [place] | [address] | | | | | [address] | | | | | | [phone] | | | +--------+ + + + [...]
--- OUTSIDE RECORDS SUMMARY | ~2020-01-13 | XMS | Encounter Summary ---
Demographics + + + | Address | [address] | | | [place] [address] | + + + | Home Phone | | + + + | Preferred Language | Unknown | + + + | Marital Status | Single | + + + | Taoism Affiliation | 1013 | + + + | Race | Unknown | + + + | Ethnic Group | Unknown | + + + Author + + + | Author | [facility] | | | and [place] | + + + | Organization | [facility] | | | and [...] Team Providers + +------+ + | Care Coat Agent Name | Role | Phone | + +------+ + PCP | Unavailable | + +------+ + Encounter Details +--------+ + + + + | Date | Type | Department | Care Team | Description | +--------+ + + + + | 10/06/ | [facility] | [facility] | Edi Sprague | | | 2010 | Encounter | MED CTR XRAY [address] | [address] [facility] [facility] [facility] | | | | | [place] | [place] | | | | | [place] [address] | [address] | | | | | [phone] | | | +--------+ + + + [...]
--- OUTSIDE RECORDS SUMMARY | ~2020-01-13 | XMS | Encounter Summary ---
Demographics + + + | Address | [address] | | | [place] [address] | + + + | Home Phone [...] + | Organization | [facility] | | | and [...] Team Providers + +------+ + | Care Harness Fitter Name | Role | Phone | + +------+ + | Phi Singh NP | PCP | | + +------+ + Reason for Visit + + + | Reason | Comments | + + + | Emesis | | + + + | Abdominal Pain | | + + + Encounter Details +--------+ + + + + | Date | Type | Department | Care Team | Description | +--------+ + + + + | 02/24/ | Emergency | [facility] | Jim Hurd | Abdominal pain, | | 2017 | | [facility] EM[facility]Y | [address] | unspecified location | | | | CENTER [address] | [address] [place] | (Primary Dx); | | | | [place], [place] | [place] [address] | Nausea and vomiting, | | | | [address] | [phone] | intractability of | | | | [phone] | | vomiting not | | | | | | specified, | | | | | | unspecified vomiting | | | | | | type | +--------+ + + + + Social History + + + +--------+------+ | Tobacco Use | Types | Packs/Day | Years | Date | | | | | Used | | + + + +--------+------+ | Current Every Day | Cigarettes | 0.25 | 15 | | | Smoker | | | | | + + + +--------+------+ + + +---------+ + | Alcohol [...] + + + | Blood Pressure | 97/63 | 02/24/2017 11:00 PM | | | | | PDT | | + + + + + | Pulse | 81 | 02/24/2017 11:00 PM | | | | | PDT | | + + + + + | Temperature | 36.7 C (98.1 F) | 02/24/2017 9:36 PM | | | | | PDT | | + + + + + | Respiratory Rate | 20 | 02/24/2017 9:36 PM | | | | | PDT | | + + + + + | Oxygen Saturation | 95% | 02/24/2017 11:00 PM | | | | | PDT | | + + + + + | Inhaled Oxygen | - | - | | | Concentration | | | | + + + + + | Weight | 75.8 kg (167 lb) | 02/24/2017 9:36 PM | | | | | PDT | | + + + + + | Height | 152.4 cm (5') | 02/24/2017 9:36 PM | | | | | PDT | | + + + + + | Body Mass Index | 32.61 | 02/24/2017 9:36 PM | | | | | PDT | | + + + + + documented in this encounter Discharge Instructions AttachmentsThe following attachments cannot be sent through Care Everywhere.NAUSEA AND VOMI TINCandi, HOW TO CONTROL (CROATIAN)ABDOMINAL PAIN, ADULT (CROATIAN)documented in this encounter Medications at Time of [...] + +---------+ + + | gabapentin | 800 mg 3 times | | 0 | 08/27/20 | | | (NEURONTIN) 800 MG | daily. And an | | | 16 | 8 | | tablet | additional 1.5 | | | | | | | tablets at bedtime | | | | | + + + +---------+ + + | ibuprofen | take 1 tablet by | | 0 | 06/15/20 | | | (ADVIL,MOTRIN) 600 | mouth every 6 hours | | | 16 | 9 | | MG tablet | if needed | | | | | + + + +---------+ + + | | Take 2 tablets by | | 0 | | | | oxyCODONE-acetaminop | mouth every 4 hours | | | | 8 | | hen (PERCOCET) 5-325 | as needed for Pain. | | | | | | mg per tablet | | | | | | + + + +---------+ + + | promethazine | Take 12.5 mg by | | 0 | | | | (PHENERGAN) 12.5 MG | mouth every 6 hours | | | | 8 | | tablet | as needed for [...] | + +--------+ + + + | EXTRA GREEN TOP TUBE | Routin | 02/24/2017 | | Results for this | | | e | 10:13 PM | | procedure are in the | | | | PDT | | results section. | + +--------+ + + + | EXTRA BLUE TOP TUBE | Routin | 02/24/2017 | | Results for this | | | e | 10:13 PM | | procedure are in the | | | | PDT | | results section. | + +--------+ + + + | URINALYSIS WITH | STAT | 02/24/2017 | | Results for this | | MICROSCOPIC WITH | | 10:04 PM | | procedure are in the | | CULTURE IF INDICATED | | PDT | | results section. | + +--------+ + + + | CBC WITH | STAT | 02/24/2017 | | Results for this | | DIFFERENTIAL | | 9:56 PM | | procedure are in the | | | | PDT | | results section. | + +--------+ + + + | , SERUM, | STAT | 02/24/2017 | | Results for this | | QUAL | | 9:56 PM | | procedure are in the | | | | PDT | | results section. | + +--------+ + + + | LIPASE | STAT | 02/24/2017 | | Results for this | | | | 9:56 PM | | procedure are in the | | | | PDT | | results section. | + +--------+ + + + | COMPREHENSIVE | STAT | 02/24/2017 | | Results for this | | METABOLIC PANEL | | 9:56 PM | | procedure are in the | | | | PDT | | results section. | + +--------+ + + + documented in this encounter Results Extra Blue Top Tube (02/24/2017 10:13 PM PDT) + +-------+ + + + | Component | Value | Ref Range | Performed | Pathologist | | | | | At | Signature | + +-------+ + + + | Extra Blue | Done | | [facility] | | | Top Tube | | | [facility] | | [...] + | [facility] | [address] | [place] | [phone] | | [facility] | | [address] | | | - LABORATORY | | | | + + + + + Extra Green Top Tube (02/24/2017 10:13 PM PDT) + +-------+ + + + | Component | Value | Ref Range | Performed | Pathologist | | | | | At | Signature | + +-------+ + + + | Extra Green | Done | | [facility] | | | Top Tube | | | [facility] | | | | | | [...] + | [facility] | [address] | [place] | [phone] | | [facility] | | [address] | | | - LABORATORY | | | | + + + + + Urinalysis with Microscopic with Culture if Indicated (02/24/2017 10:04 PM PDT) + + + + + + | Component | Value | Ref Range | Performed | Pathologist | | | | | At | Signature | + + + + + + | Color, | Yellow | Light Yellow, | [facility] | | | Urine | | Yellow, Straw | [facility] | | | | | | MEDICAL | | | | | | CENTER - | | | | | | LABORATORY | | + + + + + + | Clarity | Hazy (A) | Clear | [facility] | | | | | | [facility] | | | | | | MEDICAL | | | | | | CENTER - | | | | | | LABORATORY | | + + + + + + | pH, Urine | 6.0 | 5.0 - 8.0 | [facility] | | | | | | [facility] | | | | | | MEDICAL | | | | | | CENTER - | | | | | | LABORATORY | | + + + + + + | Specific | 1.028 | 1.001 - 1.030 | [facility] | | | [place], | | | [facility] | | | Urine | | | MEDICAL | | | | | | CENTER - | | | | | | LABORATORY | | + + + + + + | Protein, | 30 mg/dL (A) | Negative | [facility] | | | Urine | | | [facility] | | | | | | MEDICAL | | | | | | CENTER - | | | | | | LABORATORY | | + + + + + + | Blood, | Moderate (A) | Negative | [facility] | | | Urine | | | [facility] | | | | | | MEDICAL | | | | | | CENTER - | | | | | | LABORATORY | | + + + + + + | Glucose, | Negative | Negative | [facility] | | | Urine | | | [facility] | | | | | | MEDICAL | | | | | | CENTER - | | | | | | LABORATORY | | + + + + + + | Ketones, | Trace (A) | Negative | [facility] | | | Urine | | | [facility] | | | | | | MEDICAL | | | | | | CENTER - | | | | | | LABORATORY | | + + + + + + | Bilirubin, | Negative | Negative | [facility] | | | Urine | | | [facility] | | | | | | MEDICAL | | | | | | CENTER - | | | | | | LABORATORY | | + + + + + + | Nitrite, | Negative | Negative | [facility] | | | Urine | | | [facility] | | | | | | MEDICAL | | | | | | CENTER - | | | | | | LABORATORY | | + + + + + + | Leukocyte | Trace (A) | Negative | [facility] | | | Esterase, | | | [facility] | | | Urine | | | MEDICAL | | | | | | CENTER - | | | | | | LABORATORY | | + + + + + + | Urobilinoge | Negative | 0.2 mg/dL, 1.0 | [facility] | | | n, Urine | | mg/dL, Negative | [facility] | | | | | | MEDICAL | | | | | | CENTER - | | | | | | LABORATORY | | + + + + + + | White Blood | 5-10 (A) | 0 - 2 /HPF | [facility] | | | Cells, | | | [facility] | | | Urine | | | MEDICAL | | | | | | CENTER - | | | | | | LABORATORY | | + + + + + + | Red Blood | 50-100 (A) | 0 - 2 /HPF | [facility] | | | Cells, | | | [facility] | | | Urine | | | MEDICAL | | | | | | CENTER - | | | | | | LABORATORY | | + + + + + + | Squamous | >100 (A) | 0 - 2 /LPF | [facility] | | | Epithelial | | | [facility] | | | Cells, | | | MEDICAL | | | Urine | | | CENTER - | | | | | | LABORATORY | | + + + + + + | Bacteria, | 1+ (A) | Negative /HPF | [facility] | | | Urine | | | [facility] | | | | | | MEDICAL | | | | | | CENTER - | | | | | | LABORATORY | | + + + + + + | Mucus, | Present (A) | Negative /LPF | [facility] | | | Urine | | | [facility] | | | | | | MEDICAL | | | | | | CENTER - | | | | | | LABORATORY | | + + + + + + | Urine | Urine Culture Not | | [facility] | | | Comment | Indicated | | [facility] | | | [...] | [address] | [place] | [phone] | | [facility] | | [address] | | | - LABORATORY | | | | + + + + + , Serum, Qual (02/24/2017 9:56 PM PDT) + + + + + + | Component | Value | Ref Range | Performed | Pathologist | | | | | At | Signature | + + + + + + | hCG Screen, | Negative | Negative | [facility] | | | Serum | | | [facility] | | | | | | [...] + | [facility] | [address] | [place] | [phone] | | [facility] | | [address] | | | - LABORATORY | | | | + + + + + Lipase (02/24/2017 9:56 PM PDT) + +-------+ + + + | Component | Value | Ref Range | Performed | Pathologist | | | | | At | Signature | + +-------+ + + + | Lipase | 19 | 0 - 60 U/L | [facility] | | | | [...] + | [facility] | [address] | [place] | [phone] | | [facility] | | [address] | | | - LABORATORY | | | | + + + + + Comprehensive Metabolic Panel (02/24/2017 9:56 PM PDT) + + + + + + | Component | Value | Ref Range | Performed | Pathologist | | | | | At | Signature | + + + + + + | Na | 140 | 136 - 149 | [facility] | | | | | mmol/L | [facility] | | | | | | MEDICAL | | | | | | CENTER - | | | | | | LABORATORY | | + + + + + + | K | 3.9 | 3.5 - 5.1 | [facility] | | | | | mmol/L | [facility] | | | | | | MEDICAL | | | | | | CENTER - | | | | | | LABORATORY | | + + + + + + | Cl | 109 | 98 - 109 mmol/L | [facility] | | | | | | [facility] | | | | | | MEDICAL | | | | | | CENTER - | | | | | | LABORATORY | | + + + + + + | CO2 | 21 (L) | 24 - 31 mmol/L | [facility] | | [...] + + + + | Glucose | 125 (H) | 70 - 109 mg/dL | [facility] | | | | | | [facility] | | | | | | MEDICAL | | | | | | CENTER - | | | | | | LABORATORY | | + + + + + + | BUN | 13 | 7 - 18 mg/dL | [facility] | | | | | | [facility] | | | | | | MEDICAL | | | | | | CENTER - | | | | | | LABORATORY | | + + + + + + | Creatinine | 0.52 (L) | 0.60 - 1.30 | [facility] | | | | | mg/dL | [facility] | | | | | | MEDICAL | | | | | | CENTER - | | | | | | LABORATORY | | + + + + + + | eGFR if not | >60Comment: GLOMERULAR | >=60 | [facility] | | | | FILTRATION | mL/min/1.73m2 | [facility] | | | STATELESS | RATE,ESTIMATED | | MEDICAL | | | | mL/min/1.23o1Swkl than | | CENTER - | | [...] + + + + | Calcium | 9.1 | 8.3 - 10.5 | [facility] | | | | | mg/dL | [facility] | | | | | | MEDICAL | | | | | | CENTER - | | | | | | LABORATORY | | + + + + + + | Albumin | 4.2 | 3.2 - 5.0 g/dL | [facility] | | | | | | [facility] | | [facility] | | | MEDICAL | | | | | | CENTER - | | | | | | LABORATORY | | + + + + + + | Bilirubin | 0.7Comment: This is an | 0.1 - 1.5 mg/dL | [facility] | | | Total | appended report. These | | [facility] | | | | results have been | | MEDICAL | | | | appended to a previously | | CENTER - | | | | preliminary verified | | LABORATORY | | | | report. | | | | + + + + + + | Total | 7.2 | 6.0 - 7.8 g/dL | [facility] | | | Protein | | | [facility] | | | | | | MEDICAL | | | | | | CENTER - | | | | | | LABORATORY | | + + + + + + | AST | 19Comment: This is an | 10 - 42 U/L | [facility] | | | | appended report. These | | [facility] | | | | results have been | | MEDICAL | | | | appended to a previously | | CENTER - | | | | preliminary verified | | LABORATORY | | | | report. | | | | + + + + + + | ALT | 19Comment: This is an | 6 - 45 U/L | [facility] | | | | appended report. These | | [facility] | | | | results have been | | MEDICAL | | | | appended to a previously | | CENTER - | | | | preliminary verified | | LABORATORY | | | | report. | | | | + + + + + + | Alkaline | 76Comment: This is an | 40 - 110 U/L | [facility] | | | Phosphatase | appended report. These | | [facility] | | | | results have been | | MEDICAL | | | | appended to a previously | | CENTER - | | | | preliminary verified | | LABORATORY | | | | report. | | | | + + + + + + | Globulin | 3.0 | 2.1 - 3.8 g/dL | [facility] | | | | | | [facility] | | | | | | MEDICAL | | | | | | CENTER - | | | | | | LABORATORY | | + + + + + + | Albumin/Juana | 1.4 | 0.8 - 2.0 | [facility] | | | bulin Ratio | | | [facility] | | | | | | MEDICAL | | | | | | CENTER - | | | | | | LABORATORY | | + + + + + + | BUN/Creatin | 25.0 | | [facility] | | | ine Ratio | | | [facility] | | [...] + | [facility] | [address] | [place] | [phone] | | [facility] | | [address] | | | - LABORATORY | | | | + + + + + CBC with Differential (02/24/2017 9:56 PM PDT) + + + + + + | Component | Value | Ref Range | Performed | Pathologist | | | | | At | Signature | + + + + + + | WBC | 18.6 (H) | 4.0 - 11.0 K/uL | [facility] | | | | | | [facility] | | | | | | MEDICAL | | | | | | CENTER - | | | | | | LABORATORY | | + + + + + + | RBC | 4.54 | 3.70 - 5.20 | [facility] | | | | | M/uL | [facility] | | | | | | MEDICAL | | | | | | CENTER - | | | | | | LABORATORY | | + + + + + + | Hemoglobin | 14.6 | 11.5 - 16.0 | [facility] | | | | | g/dL | [facility] | | | | | | MEDICAL | | | | | | CENTER - | | | | | | LABORATORY | | + + + + + + | Hematocrit | 42.5 | 34.0 - 47.0 % | [facility] | | | | | | [facility] | | | | | | MEDICAL | | | | | | CENTER - | | | | | | LABORATORY | | + + + + + + | MCV | 93.8 | 83.0 - 101.0 fL | [facility] | | | | | | [facility] | | | | | | MEDICAL | | | | | | CENTER - | | | | | | LABORATORY | | + + + + + + | MCH | 32.2 | 28.0 - 35.0 pg | [facility] | | | | | | [facility] | | | | | | MEDICAL | | | | | | CENTER - | | | | | | LABORATORY | | + + + + + + | MCHC | 34.3 | 32.0 - 36.0 | [facility] | | | | | g/dL | [facility] | | | | | | MEDICAL | | | | | | CENTER - | | | | | | LABORATORY | | + + + + + + | RDW-CV | 13.1 | <15.0 % | [facility] | | | | | | [facility] | | | | | | MEDICAL | | | | | | CENTER - | | | | | | LABORATORY | | + + + + + + | Platelet | 263 | 140 - 440 K/uL | [facility] | | | Count | | | [facility] | | | | | | MEDICAL | | | | | | CENTER - | | | | | | LABORATORY | | + + + + + + | MPV | 8.0 | fL | [facility] | | | | | | [facility] | | | | | | MEDICAL | | | | | | CENTER - | | | | | | LABORATORY | | + + + + + + | % | 88.2 (H) | 45.0 - 82.0 % | [facility] | | | Neutrophils | | | [facility] | | | | | | MEDICAL | | | | | | CENTER - | | | | | | LABORATORY | | + + + + + + | % | 9.1 (L) | 20.0 - 45.0 % | [facility] | | | Lymphocytes | | | [facility] | | | | | | MEDICAL | | | | | | CENTER - | | | | | | LABORATORY | | + + + + + + | % Monocytes | 1.8 (L) | 4.0 - 12.0 % | [facility] | | | | | | [facility] | | | | | | MEDICAL | | | | | | CENTER - | | | | | | LABORATORY | | + + + + + + | % | 0.6 | 0.0 - 5.0 % | [facility] | | | Eosinophils | | | [facility] | | | | | | MEDICAL | | | | | | CENTER - | | | | | | LABORATORY | | + + + + + + | % Basophils | 0.3 | 0.0 - 1.0 % | [facility] | | | | | | [facility] | | | | | | MEDICAL | | | | | | CENTER - | | | | | | LABORATORY | | + + + + + + | Absolute | 16.40 (H) | 1.80 - 8.50 | [facility] | | | Neutrophils | | K/uL | [facility] | | | | | | MEDICAL | | | | | | CENTER - | | | | | | LABORATORY | | + + + + + + | Absolute | 1.70 | 0.60 - 3.20 | [facility] | | | Lymphocytes | | K/uL | [facility] | | | | | | MEDICAL | | | | | | CENTER - | | | | | | LABORATORY | | + + + + + + | Absolute | 0.30 | 0.00 - 1.00 | [facility] | | | Monocytes | | K/uL | [facility] | | | | | | MEDICAL | | | | | | CENTER - | | | | | | LABORATORY | | + + + + + + | Absolute | 0.10 | 0.00 - 0.40 | [facility] | | | Eosinophils | | K/uL | [facility] | | | | | | MEDICAL | | | | | | CENTER - | | | | | | LABORATORY | | + + + + + + | Absolute | 0.10 | 0.00 - 0.10 | [facility] | | | Basophils | | K/uL | [facility] | | | | [...] + + | [facility] | [address] | [place] | [phone] | | [facility] | | [address] | | | - LABORATORY | | | | + + + + + documented in this encounter Visit Diagnoses + + | Diagnosis | + + | Abdominal pain, unspecified location - Primary | + + | Nausea and vomiting, intractability of vomiting not specified, unspecified vomiting | | type | + + documented in this encounter Administered Medications + +--------+ +-------+------+------+ | Medication Order | MAR | Action | Dose | Rate | Site | | | Action | Date | | | | + +--------+ +-------+------+------+ | diphenhydrAMINE (BENADRYL) | Given | 02/25/20 | 25 mg | | | | injection 25 mg 25 mg, | | 17 10:05 | | | | | Intravenous, ONCE, 02/24/17 at | | PM PDT | | | | | 2200, For 1 dose | | | | | | + +--------+ +-------+------+------+ +---+---+ | | | +---+---+ + +-------+ +--------+---+---+ | HYDROmorphone (DILAUDID) | Given | 02/25/20 | 0.5 mg | | | | injection 0.5 mg 0.5 mg, | | 17 10:05 | | | | | Intravenous, ONCE, Mon02/24/17 at | | PM PDT | | | | | 2205, For 1 dose | | | | | | + +-------+ +--------+---+---+ +---+---+ | | | +---+---+ + +-------+ +-------+---+---+ | metoclopramide (REGLAN) 5 mg/mL | Given | 02/25/20 | 10 mg | | | | injection 10 mg 10 mg, | | 17 10:05 | | | | | Intravenous, ONCE, Mon02/24/17 at | | PM PDT | | | | | 2200, For 1 dose, Protect from | | | | | | | light., | | | | | | + +-------+ +-------+---+---+ +---+---+ | | | +---+---+ + +---------+ +--------+-------+---+ | sodium chloride 0.9% (NS) bolus | New Bag | 02/25/20 | 1,000 | 1000 | | | 1,000 mL 1,000 mL, Intravenous, | | 17 9:59 | mLs | mL/hr | | | Administer over 1 Hours, ONCE, | | PM PDT | | | | | 02/24/17 at 2135, For 1 dose | | | | | | + +---------+ +--------+-------+---+ +---+---+ | | | +---+---+ documented in this encounter"
--- OUTSIDE RECORDS SUMMARY | ~2020-01-13 | XMS | Encounter Summary ---
Demographics + + + | Address | [address] | | | [place] [address] | + + + | Home Phone | | + + + | Preferred Language | Unknown | + + + | Marital Status | Single | + + + | Denominational Affiliation | 1013 | + + + | Race | Unknown | + + + | Ethnic Group | Unknown | + + + Author + + + | Author | [facility] | | | and [place] | + + + | Organization | [facility] | [...] Team Providers + +------+ + | Care Reconciling Clerk Name | Role | Phone | + +------+ + | No, Physician | PCP | Unavailable | + +------+ + Encounter Details +--------+ + + + + | Date | Type | Department | Care Team | Description | +--------+ + + + + | 07/06/ | Emergency | [facility] | No, Physician p | Patient left without | | 2016 | [facility] | | being seen (Primary | | | | CENTER [address] | | Dx) | | | | [place], [place] | | | | | | [phone] | | | | | | [phone] | | | +--------+ + + + [...] + + + +---------+ + + | calcium carbonate | Take 2 tablets by | | 0 | | | | (TUMS) 500 mg | mouth Daily. | | | | 7 | | chewable tablet | | | | | | + + + +---------+ + + | | Take 1 tablet by | 15 | 0 | 10/28/19 | | | HYDROcodone-acetamin | mouth every 6 hours | tablet | | 16 | 7 | | ophen (NORCO) 5-325 | as needed for Pain. | [...] + + + +---------+ + + | 27-0.8 mg | Take 1 tablet by | | 0 | | | | multivitamin tablet | mouth Daily. | | | | 7 | + + + +---------+ + + documented as of this encounter Plan of Treatment Not on filedocumented as of this encounter Visit Diagnoses + + | Diagnosis | + + | Patient left without being seen - Primary Surgical or other procedure not carried out | | because of patient's decision | + + documented in this encounter"
--- OUTSIDE RECORDS SUMMARY | ~2020-01-13 | XMS | Clinical Summary ---
Demographics + + + | Address | [address] | | | [place] [address] | + + + | Home Phone [...] Author + + + | Author | [facility] | + + + | Organization | [facility] | + + + | Address | Unknown | + + + | Phone | Unavailable | + + + Support + + +---------+ + | Name | Relationship | Address | Phone | + + +---------+ + | Radha Soria | ECON | Unknown | | + + +---------+ + Care Team Providers + +------+ + | Care Prosthetic Dentist Name | Role | Phone | + +------+ + | No Pcp Per Patient | PCP | Unavailable | + +------+ + Source Comments HARSH is fully live on both [facility] Amb[facility] and [facility] InPatient.[facility] Allergies + + + + + + | Active Allergy | Reactions | Severity | Noted | Comments | | | | | Date | | + + + + + + | Bupropion | Anxiety, Nausea | Low | 07/29/20 | Anger AKA | | | | | 15 | "Wellbutrin" | + + + + + + | Codeine | Nausea, Unknown | Low | 07/29/20 | No pain relief, | | | | | 15 | "makes me loopy" | + + + + + + | Ondansetron | Anxiety, Unknown | Medium | 07/29/20 | "Extreme anxiety" | | | | | 15 | AKA "Zofran" Makes | | | | | | her "climb jo" | | | | | | | + + + + + + | Sulfamethoxazole-Tri | Unknown | | 11/16/19 | | | methoprim | | | 20 | | + + + + + + | Tramadol | Unknown | Low | 07/29/20 | No pain [...] + +---------+------+------+-------+ | albuterol 90 | Inhale by mouth. | | 0 | 07/0 | | Activ | | mcg/actuation | | | | 2/20 | | e | | inhalation HFA | | | | 18 | | | | aerosol inhaler | | | | | | | + + + +---------+------+------+-------+ | baclofen 20 mg | Take 20 mg by mouth. | | 0 | 01/3 | | Activ | | oral tablet | | | | 1/20 | | e | | | | | | 19 | | | + + + +---------+------+------+-------+ | clonazePAM 1 mg | Take 1 mg by mouth. | | 0 | | | Activ | | oral tablet | | | | | | e | + + + +---------+------+------+-------+ | desvenlafaxine | take 1 tablet by | | 0 | 03/1 | | Activ | | succinate 25 mg oral | mouth daily | | | 4/20 | | e | | tablet extended | | | | 20 | | | | release 24 hr | | | | | | | + + + +---------+------+------+-------+ | gabapentin 800 mg | take 1 tablet by | | 0 | 02/0 | | Activ | | oral tablet | mouth three times a | | | 7/20 | | e | | | day AND AN | | | 19 | | | | | ADDITIONAL 1 1/2 | | | | | | | | TABLETS AT BEDTIME | | | | | | + + + +---------+------+------+-------+ | fluticasone | Instill 1 spray in | | 0 | 10/2 | | Activ | | propionate 50 | nose. | | | 2/20 | | e | | mcg/actuation nasal | | | | 18 | | | | spray,suspension | | | | | | | + + + +---------+------+------+-------+ | sertraline 100 mg | Take 100 mg by | | 0 | 11/2 | | Activ | | oral tablet | mouth. | | | 0/20 | | e | | | | | | 18 | | | + + + +---------+------+------+-------+ | spironolactone 100 | Take 100 mg by | | 0 | | | Activ | | mg oral tablet | mouth. | | | | | e | + + + +---------+------+------+-------+ | SUMAtriptan 100 mg | Take 100 mg by | | 0 | 03/3 | | Activ | | oral tablet | mouth. | | | 1/20 | | e | | | | | | 20 | | | + + + +---------+------+------+-------+ | traZODone 100 mg | take 1-2 tablets by | | 0 | 02/1 | | Activ | | oral tablet | mouth at bedtime | | | 8/20 | | e | | | | | | 20 | | | + + + +---------+------+------+-------+ | lidocaine 2 % | Apply to affected | 5 mL | 0 | 04/0 | | Activ | | mucous membrane | area once daily as | | | 8/20 | | e | | jelly | needed for severe | | | 20 | | | | | pain. | | | | | | + + + +---------+------+------+-------+ | doxycycline | Take 1 capsule by | 14 | 0 | 04/0 | 04/1 | Expir | | monohydrate 100 mg | mouth every twelve | capsule | | 8/20 | 5/20 | ed | | oral capsule | hours for 7 days. | | | 20 | 20 | | | | (Pharmacist to | | | | | | | | substitute salt form | | | | | | | | as needed) | | | | | | + + + +---------+------+------+-------+ Active Problems Not on file Encounters +--------+ + + + + | Date | Type | Specialty | Care Team | Description | +--------+ + + + + | 12/10/ | Emergency | Emergency Medicine | Earlene, | | | 2019 | | | MD Naldo | | +--------+ + + + + | 12/10/ | Emergency | Emergency Medicine | Macy Rod, | | | 2019 | | | MD | | +--------+ + + + + | 12/10/ | Telephone | Emergency Medicine | Mickie Gottlieb, | Pain | | 2019 | IP | | DISPOSAL PLANT OPERATOR | | +--------+ + + + + | 12/10/ | Travel | | | | | 2020 | | | | | +--------+ + + + + from Last 3 Months Social History + +-------+ +--------+------+ | Tobacco [...] + + + | Blood Pressure | 112/77 | 12/11/2019 8:33 PM | | | | | PDT | | + + + + + | Pulse | 87 | 12/11/2019 8:33 PM | | | | | PDT | | + + + + + | Temperature | 36.9 C (98.4 F) | 12/11/2019 8:33 PM | | | | | PDT | | + + + + + | Respiratory Rate | 16 | 12/11/2019 8:28 PM | | | | | PDT | | + + + + + | Oxygen Saturation | 95% | 12/11/2019 8:33 PM | | | | | PDT | | + + + + + | Inhaled Oxygen | - | - | | | Concentration | | | | + + + + + | Weight | 49.9 kg (110 lb) | 12/11/2019 8:28 PM | | | | | PDT | | + + + + + | Height | 152.4 cm (5') | 12/11/2019 8:28 PM | | | | | PDT | | + + + + + | Body Mass Index | 21.48 | 12/11/2019 8:28 PM | | | | | PDT | | + + + + + Plan of Treatment + + + + + | Health Maintenance | Due Date | Last Done | Comments | + + + + + | Influenza (Flu) | | 08/10/2018, 08/14/2013, | | | vaccination (#1) | 9 | 07/11/2007 | | + + + + + | Pneumococcal | Completed | 08/10/2018 | | | vaccination | | | | + + + + + Procedures + +--------+ + + + | Procedure Name | Priori | Date/Time | Associated Diagnosis | Comments | | | ty | | | | + +--------+ + + + | ED INFORMATION | Routin | 12/11/2019 | | Results for this | | EXCHANGE | e | 8:26 PM | | procedure are in the | | | | PDT | | results section. | + +--------+ + + + | ED INFORMATION | Routin | 12/11/2019 | | Results for this | | EXCHANGE | e | 11:20 AM | | procedure are in the | | | | PDT | | results section. | + +--------+ + + + from Last 3 Months Results ED INFORMATION EXCHANGE (12/11/2019 8:26 PM PDT)Only the most recent of 2 results within t he time period is included. + + | Specimen | + + | | + + + + + | Narrative | Performed At | + + + | COLLECTIVE?NOTIFICATION?12/11/2019 20:25?NATALY BEDOYA?MRN: | [facility] | | [id number] Criteria Met 3 Facilities In 60 Days 5 Visits | MEDICAL | | In 12 Months Has Guidelines PDMP Security and Safety No | [employer] | | recent Security Events currently on file ED [facility] Guidelines [facility] Last Updated: 12/11/19 10:08 AM Care | | | Recommendation: Receiving mental health services through [facility]. | | | Please contact [facility] for any mental health concerns: [place] | | | [phone] [place] [phone] Crisis Line [phone] These | | | are guidelines and the provider should exercise clinical judgment when | | | providing care. Prescription Drug Report (12 Mo.) Rx | | | Details Fill Date Drug Description Qty. Prescriber CS MED | | | 2019-11-20 OXYCODONE-ACETAMINOPHEN 5-325 15 KAMILLE ALEJANDRO MD 2 | | | 22.5 2019-11-13 CLONAZEPAM 2 MG TABLET 15 ISABELA HIGUERA 4 0 | | | 2019-11-08 GABAPENTIN 800 MG TABLET 135 ISABELA HIGUERA 0 | | | 2019-10-21 GABAPENTIN 800 MG TABLET 90 ISABELA HIGUERA 0 | | | 2019-10-15 CLONAZEPAM 1 MG TABLET 30 ISABELA OLSWANGER 4 0 2019-10-04 | | | CLONAZEPAM 2 MG TABLET 10 ISABELA OLSWANGER 4 0 2019-09-24 | | | GABAPENTIN 800 MG TABLET 90 ISABELA OLSWANGER 0 2019-09-20 | | | CLONAZEPAM 2 MG TABLET 10 CORIE CARLSON MD 4 0 2019-09-06 | | | GABAPENTIN 800 MG TABLET 90 ISABELA OLSWANGER 0 2019-09-06 | | | CLONAZEPAM 2 MG TABLET 5 ISABELA OLSWANGER 4 0 2019-08-23 | | | OXYCODONE-ACETAMINOPHEN 5-325 20 CORIE VALDEZ MD 2 50 2019-08-08 | | | CLONAZEPAM 2 MG TABLET 5 ISABELA OLSWANGER 4 0 2019-07-10 CLONAZEPAM | | | 2 MG TABLET 5 ISABELA OLSWANGER 4 0 2019-03-14 LORAZEPAM 0.5 MG | | | TABLET 5 ISABELA OLSWANGER 4 0 2019-02-19 LORAZEPAM 0.5 MG TABLET 5 | | | SERAFIN BOWERS MD 4 0 Rx Summary Metric Count CS II-V Rx 11 | | | CS-II Rx 2 Quantity Dispensed 530 Unique Prescribers 5 Unique | | | Pharmacies 2 Benzos 8 Opioids 2 Long Acting Opioids 0 | | | E.D. Visit Count (12 mo.) Facility Visits [facility] 1 | | | [facility] 2 [facility] | | | Center 3 [facility] 11 Total 17 Note: | | | Visits indicate total known visits. Recent Emergency Department | | | Visit Summary Showing 10 most recent visits out of 18 in the past 12 | | | months Date Facility City State Type Diagnoses or Chief Complaint | | | Dec 11, 2019 [facility] [place] Emergency | | | 10,800. Medication request Dec 11, 2019 [facility] and | | | [facility] [place] Emergency 10,800. Infection | | | 10,800. L Arm/Headache 18,400. Personal history of other | | | diseases of the nervous system and 18,400. Cutaneous abscess, | | | unspecified 18,400. Other stimulant abuse, uncomplicated | | | 18,400. Paresthesia of skin Dec 08, 2019 [facility] | | | [place] Emergency Spasms Other stimulant abuse, | | | uncomplicated Other problems related to lifestyle Apr 5, | | | 2019 [facility]. [place] Emergency | | | Hallucinations Other stimulant abuse, uncomplicated Apr | | | 2019 [facility]. [place] Emergency Medical | | | Complacations from alc and drug abuse Spasms Other | | | stimulant abuse, uncomplicated Dec 01, 2019 [facility] | | | [facility]. [place] Emergency CP,sob Pain Tachycardia | | | Restlessness and agitation Other stimulant use, unspecified | | | with intoxication, unspecifi Panic disorder [episodic paroxysmal | | | anxiety] Nov 20, 2019 [facility] | | | Emergency needle stuck in arm Foreign Body in Skin | | | Other injury of unspecified body region, initial encounter Mar | | | 2019 [facility] Emergency Pruritis | | | Adverse effect of unspecified drugs, medicaments and biologic | | | Pruritus, unspecified Urticaria, unspecified Nov 16, 2019 | | | [facility] Emergency Arm Injury | | | Superficial foreign body of left upper arm, initial encounter | | | Contact with needle (sewing), initial encounter Encounter for | | | immunization Nov 15, 2019 [facility]. [place] | | | Emergency FB STUCK IN ARM Other psychoactive substance | | | use, unspecified, uncomplicated Other injury of unspecified body | | | region, initial encounter Recent Inpatient Visit Summary | | | No recorded inpatient visits. Care Team Provider Specialty Phone | | | Fax Service Dates Giancarlo Quarles -, [facility] | | | Health Worker Nov 16, 2019 - Current | | | [facility] Portal This patient has registered at the [facility] | | | [facility] Emergency Department For more information | | | visit: | | | [email or web address] | | | [id number] PLEASE NOTE: 1. Any care recommendations and | | | other clinical information are provided as guidelines or for | | | historical purposes only, and providers should exercise their own | | | clinical judgment when providing care. 2. You may only use this | | | information for purposes of treatment, payment or health care | | | operations activities, and subject to the limitations of applicable | | | Collective Policies. 3. You should consult directly with the | | | organization that provided a care guideline or other clinical | | | history with any questions about additional information or accuracy | | | or completeness of information provided. ? 2020 [employer] | | | [employer]. - [email or web address] | | + + + + + | Procedure Note | + + | Service Account, Rtf Results Inbound - 12/11/2019 8:26 PM PDT Formatting of this | | note might be different from the original.COLLECTIVE?NOTIFICATION?12/11/2019 | | 20:25?NATALY BEDOYA? Met 3 Facilities In 60 Days 5 Visits In 12 | | Months Has Guidelines PDMPSecurity and SafetyNo recent Security Events currently on | | fileED Care Guidelines [facility] [place] Updated: 12/11/19 10:08 AM Care | | Recommendation:Receiving mental health services through [facility]. Please contact | | [facility] for any mental health concerns:[place] [phone] | | [phone] Line [phone] are guidelines and the provider should | | exercise clinical judgment when providing care.Prescription Drug Report (12 Mo.)Rx | | DetailsFill Date Drug Description Qty. Prescriber MED 2019-11-20 | | OXYCODONE-ACETAMINOPHEN 5-325 15 KAMILLE ALEJANDRO MD 2 22.5 2019-11-13 CLONAZEPAM 2 MG | | TABLET 15 ISABELA OLSWANGER 4 0 2019-11-08 GABAPENTIN 800 MG TABLET 135 ISABELA OLSWANGER | | 0 2019-10-21 GABAPENTIN 800 MG TABLET 90 ISABELA OLSWANGER 0 2019-10-15 CLONAZEPAM 1 MG | | TABLET 30 ISABELA OLSWANGER 4 0 2019-10-04 CLONAZEPAM 2 MG TABLET 10 ISABELA OLSWANGER 4 | | 0 2019-09-24 GABAPENTIN 800 MG TABLET 90 ISABELA OLSWANGER 0 2019-09-20 CLONAZEPAM 2 MG | | TABLET 10 CORIE CARLSON MD 4 0 2019-09-06 GABAPENTIN 800 MG TABLET 90 ISABELA | | OLSWANGER 0 2019-09-06 CLONAZEPAM 2 MG TABLET 5 ISABELA OLSWANGER 4 0 2019-08-23 | | OXYCODONE-ACETAMINOPHEN 5-325 20 CORIE VALDEZ MD 2 50 2019-08-08 CLONAZEPAM 2 MG TABLET 5 | | ISABELA OLSWANGER 4 0 2019-07-10 CLONAZEPAM 2 MG TABLET 5 ISABELA OLSWANGER 4 0 | | 2019-03-14 LORAZEPAM 0.5 MG TABLET 5 ISABELA OLSWANGER 4 0 2019-02-19 LORAZEPAM 0.5 MG | | TABLET 5 SERAFIN BOWERS MD 4 0 Rx SummaryMetric Count CS II-V Rx 11 CS-II Rx 2 Quantity | | Dispensed 530 Unique Prescribers 5 Unique Pharmacies 2 Benzos 8 Opioids 2 Long Acting | | Opioids 0 E.D. Visit Count (12 mo.)Facility Visits [facility] 1 [facility] | | [facility] 2 [facility] 3 [facility] | | Center 11 Total 17 Note: Visits indicate total known visits. Recent Emergency | | Department Visit SummaryShowing 10 most recent visits out of 18 in the past 12 | | monthsDate Facility [facility] State Type Diagnoses or Chief Complaint Dec 11, 2019 [place] | | [facility] [place] Emergency 10,800. Medication request Dec 10 | | 2019 [facility] [place] Emergency 10,800. Infection | | 10,800. L Arm/Headache 18,400. Personal history of other diseases of the nervous | | system and 18,400. Cutaneous abscess, unspecified 18,400. Other stimulant abuse, | | uncomplicated 18,400. Paresthesia of skin Dec 08, 2019 [facility] [place]. [place] | | Emergency Spasms Other stimulant abuse, uncomplicated Other problems related | | to lifestyle Dec 08, 2019 [facility] Jose Manuel. [place] Emergency Hallucinations | | Other stimulant abuse, uncomplicated Dec 06, 2019 [facility] Jose Manuel. [place] | | Emergency Medical Complacations from alc and drug abuse Spasms Other stimulant | | abuse, uncomplicated Dec 01, 2019 [facility]. [place] Emergency | | CP,sob Pain Tachycardia Restlessness and agitation Other stimulant use, | | unspecified with intoxication, unspecifi Panic disorder [episodic paroxysmal anxiety] | | Nov 20, 2019 [facility]. [place] Emergency needle stuck in arm | | Foreign Body in Skin Other injury of unspecified body region, initial encounter Mar | | 2019 [facility]. [place] Emergency Pruritis Adverse effect of | | unspecified drugs, medicaments and biologic Pruritus, unspecified Urticaria, | | unspecified Nov 16, 2019 [facility] Emergency Arm Injury | | Superficial foreign body of left upper arm, initial encounter Contact with needle | | (sewing), initial encounter Encounter for immunization Nov 15, 2019 [facility] | | [facility] [place] Emergency FB STUCK IN ARM Other psychoactive substance use, | | unspecified, uncomplicated Other injury of unspecified body region, initial encounter | | Recent Inpatient Visit SummaryNo recorded inpatient visits. Care TeamProvider | | Specialty Phone Fax Service Dates Giancarlo Quarles -, [facility] | | Worker Nov 16, 2019 - Current [facility] PortalThis patient has | | registered at the [facility] Emergency Department For more | | information visit: | | [email or web address] PLEASE | | NOTE: 1. Any care recommendations and other clinical information are provided as | | guidelines or for historical purposes only, and providers should exercise their own | | clinical judgment when providing care. 2. You may only use this information for | | purposes of treatment, payment or health care operations activities, and subject to the | | limitations of applicable [facility] Policies. 3. You should consult directly with | | the organization that provided a care guideline or other clinical history with any | | questions about additional information or accuracy or completeness of information | | provided.? 2020 [employer]. - [email or web address] | |[facility] 3 | |[facility] 11 | |Total 17 | |Note: Visits indicate total known visits. | | | |Recent Emergency Department Visit Summary | |Showing 10 most recent visits out of 18 in the past 12 months | |Date Facility City State Type Diagnoses or Chief Complaint | |Dec 11, 2019 [facility] [place] Emergency | | 10,800. Medication request | | | |Dec 11, 2019 [facility] [place] Emergency | | 10,800. Infection | | 10,800. L Arm/Headache | | 18,400. Personal history of other diseases of the nervous system and | | 18,400. Cutaneous abscess, unspecified | | 18,400. Other stimulant abuse, uncomplicated | | 18,400. Paresthesia of skin | | | |Dec 08, 2019 [facility]. [place] Emergency | | Spasms | | Other stimulant abuse, uncomplicated | | Other problems related to lifestyle | | | |Dec 08, 2019 [facility]. [place] Emergency | | Hallucinations | | Other stimulant abuse, uncomplicated | | | |Dec 06, 2019 [facility]. [place] Emergency | | Medical Complacations from alc and drug abuse | | Spasms | | Other stimulant abuse, uncomplicated | | | |Dec 01, 2019 [facility]. [place] Emergency | | CP,sob | | Pain | | Tachycardia | | Restlessness and agitation | | Other stimulant use, unspecified with intoxication, unspecifi | | Panic disorder [episodic paroxysmal anxiety] | | | |Nov 20, 2019 [facility]. [place] Emergency | | needle stuck in arm | | Foreign Body in Skin | | Other injury of unspecified body region, initial encounter | | | |Nov 16, 2019 [facility] Emergency | | Pruritis | | Adverse effect of unspecified drugs, medicaments and biologic | | Pruritus, unspecified | | Urticaria, unspecified | | | |Nov 16, 2019 [facility] Emergency | | Arm Injury | | Superficial foreign body of left upper arm, initial encounter | | Contact with needle (sewing), initial encounter | | Encounter for immunization | | | |Nov 15, 2019 [facility] [place] Emergency | | FB STUCK IN ARM | | Other psychoactive substance use, unspecified, uncomplicated | | Other injury of unspecified body region, initial encounter | | | | | | | |Recent Inpatient Visit Summary | |No recorded inpatient visits. | | | |Care Team | |Provider Specialty Phone Fax Service Dates | |Giancarlo Quarles -, [facility] Community Health Worker Nov 16, 2019 - Mickie donnelly | | | |[facility] Portal | |This patient has registered at the [facility] Emergency Departmen t | |For more information visit: [email or web address] | |PLEASE NOTE: | | 1. Any care recommendations and other clinical information are provided as guidelines or for historical purposes only, and providers should exercise their own clinical judgment whe n providing care. | | 2. You may only use this information for purposes of treatment, payment or health care o perations activities, and subject to the limitations of applicable [facility] Policies. | | 3. You should consult directly with the organization that provided a care guideline or o ther clinical history with any questions about additional information or accuracy or complet eness of information provided. | | | |? 2020 [employer]. - [email or web address] | + + + + + + + | Performing | Address | City/State/Zipcode | Phone Number | | Organization | | | | + + + + + | [facility] | [address] | [place], [place] | [phone] | | [employer] | [address] | [address] | | + + + + + from Last 3 Months Insurance + +--------+ +--------+-------+---------+--------+ | Payer | Benefi | Subscriber | Effect | Phone | Address | Type | | | t Plan | ID | martha | | | | | | / | | Dates | | | | | | Group | | | | | | + +--------+ +--------+-------+---------+--------+ | DEVOPS ARCHITECT MEDICAID | DEVOPS ARCHITECT | [id number] | | | | Medica | | | EASTER | | 020-Pr | | | id | | | [place] | | esent | | | | + +--------+ +--------+-------+---------+--------+ + +--------+ +--------+ + + | Guarantor Name | Accoun | Relation to | Date | Phone | Billing Address | | | t Type | Patient | of | | | | | | | | | | + +--------+ +--------+ + + | Nataly Bedoya | Person | Self | [birth year] | [address] | | | al/Fam | | 1980 | [phone] | [place], [place] | | | lew | | | [address] (Home) | [phone] | + +--------+ +--------+ + +
--- OUTSIDE RECORDS SUMMARY | ~2020-01-13 | XMS | Encounter Summary ---
Demographics + + + | Address | [address] | | | [place] [address] | + + + | Home Phone | | + + + | Preferred Language | Unknown | + + + | Marital Status | Single | + + + | Mandaen Affiliation | 1013 | + + + | Race | Unknown | + + + | Ethnic Group | Unknown | + + + Author + + + | Author | [facility] | | | and [place] | + + + | Organization | [facility] | | | and [...] Team Providers + +------+ + | Care Electric Distribution Engineer Name | Role | Phone | + +------+ + PCP | Unavailable | + +------+ + Encounter Details +--------+ + + + + | Date | Type | Department | Care Team | Description | +--------+ + + + + | 03/27/ | [facility] | [facility] | Bhupinder Yadav, | | | 2011 | Encounter | MED CTR EMERGENCY | [address] | | | | | CENTER [address] | [place] | | | | | [place] | [phone] | | | | | [address] | | | | | | [phone] | | | +--------+ + + + [...]
--- OUTSIDE RECORDS SUMMARY | ~2020-01-13 | XMS | Encounter Summary ---
Demographics + + + | Address | [address] | | | [place] [address] | + + + | Home Phone | | + + + | Preferred Language | Unknown | + + + | Marital Status | Single | + + + | Bahai Affiliation | 1013 | + + + | Race | Unknown | + + + | Ethnic Group | Unknown | + + + Author + + + | Author | [facility] | | | and [place] | + + + | Organization | [facility] | | | and [place] | [...] Team Providers + +------+ + | Care Cafe Attendant Name | Role | Phone | + +------+ + | Mohinder Gage DO | PCP | | + +------+ + Encounter Details +--------+ + + + + | Date | Type | Department | Care Team | Description | +--------+ + + + + | 12/05/ | Abstract | [facility] | Provider, | | | 2020 | | SURGERY [address] | [address] | | | | | [place] | [place] | | | | | [address] | [place] [address] | | | | | [phone] | | | +--------+ + + + [...] + + documented as of this encounter Progress Notes Palma Forde, SPACE CONTROL AGENT - 12/06/2019 2:44 PM PDTFLUOROSCOPY C ARM 11/16/2019 at [facility] CLINICAL INFORMATION: Foreign body left elbow. FINDINGS: Fluoro Time: .32 minute(s). Number of images: 3 DAP: 1.9675 mGycm^2 Left elbow foreign body removal, performed by Dr. Barreto. IMPRESSION: Fluoroscopic service for left elbow foreign body removal. Dictated by: Phyllis Rolon Michelle Signed by: Miguel Gonzalez Jeffrey Sign Date/Time: 11/16/2019 LEFT ELBOW TWO VIEWS 11/16/2019 at [facility] CLINICAL INFORMATION: Left arm injury, Foreign body. COMPARISON: None FINDINGS: Linear metallic foreign body seen projecting at the soft tissues in the distal anterior arm, measuring 6 mm in length. IMPRESSION: Linear metallic foreign body seen projecting at the soft tissues in the distal anterior arm, measuring 6 mm in length. Signed by: Miguel Antunez Amit Sign Date/Time: 11/16/2019 US EXTREMITY LEFT NON-VASCULAR LIMITED on 11/16/2019 at [facility] REASON FOR EXAM: arm, decubital fossa; COMPARISON: NONE. IMPRESSION: Limited sonographic interrogation in the area of clinical interest does not identify a sonographically apparent foreign body within the interrogated soft tissues. This report was X-RAY ELBOW 2 VIEWS LEFT 11/15/2019 at [facility] REASON FOR EXAM: Female, 39 years old, with history of eval for needle / FB in the decubita l fossa; . TECHNIQUE: AP and lateral views COMPARISON: None. FINDINGS: Metallic foreign body projects anteriorly and laterally immediately above the antecubital fossa region. Soft tissue gas is noted superiorly and posteriorly. Bony structu res appear intact. Alignment is anatomic. No evidence of joint effusion. IMPRESSION: 1. Metallic foreign body as described. This report was Electronically sig britta by Palma Forde CMA at 12/06/2019 2:48 PM PDTdocumented in this encounter Plan of Treatment Not on filedocumented as of this encounter Visit Diagnoses Not on filedocumented in this encounter"
--- OUTSIDE RECORDS SUMMARY | ~2020-01-13 | XMS | Encounter Summary ---
Demographics + + + | Address | [address] | | | [place] [address] | + + + | Home Phone | | + + + | Preferred Language | Unknown | + + + | Marital Status | Single | + + + | Faith Affiliation | 1013 | + + + | Race | Unknown | + + + | Ethnic Group | Unknown | + + + Author + + + | Author | [facility] | | | and [place] | + + + | Organization | [facility] | | | and [place] | [...] Team Providers + +------+ + | Care Industrial Boilermaker Name | Role | Phone | + +------+ + | Phi Singh NP | PCP | | + +------+ + Encounter Details +--------+ + + + + | Date | Type | Department | Care Team | Description | +--------+ + + + + | 09/21/ | Hospital | [facility] | Phi Singh | Cervical radicular | | 2018 | Encounter | MED CTR XRAY [address] | [address], [address] | pain | | | | [place] | [place], | | | | | [place] [address] | [address], | | | | | [phone] | [place] [address] | | | | | | [phone] | | | | | | | | +--------+ + [...] 1 tablet by | | 1 | 12/20/20 | | | (ZYRTEC) 10 mg | [...] tablet by | 15 | 0 | 09/21/19 | | | HYDROcodone-acetamin | mouth every 6 hours | tablet | | 18 | 8 | | ophen (NORCO) 5-325 | as [...] sertraline | Take 1 tablet by | | 0 | 09/20/19 | | | (ZOLOFT) 100 mg | mouth Daily. | | | 18 | 8 | | tablet | | | | | | + + + +---------+ + + documented as of this encounter Plan of Treatment Not on filedocumented as of this encounter Procedures + +--------+ + + + | Procedure Name | Priori | Date/Time | Associated Diagnosis | Comments | | | ty | | | | + +--------+ + + + | XR CERVICAL SPINE 4 | Routin | 09/21/2017 | Cervical radicular | Results for this | | OR 5 VWS | e | 12:30 PM | pain | procedure are in the | | | | PST | | results section. | + +--------+ + + + documented in this encounter Results XR Cervical Spine 4 or 5 Vws (09/21/2017 12:30 PM PST) + + | Specimen | + + | | + + + + + | Narrative | Performed At | + + + | | [facility] | | CLINICAL INFORMATION: neck pain with radiculopathy bilaterally. | | | | | | COMPARISON: None. | | | | | | FINDINGS: | | | AP, lateral, oblique, and odontoid views of the cervical spine. | | | | | | Alignment: Normal. No listhesis. | | | | | | Vertebral bodies: Normal in height. No vertebral fracture. | | | | | | Disk spaces: Minimal to mild disc height loss at C4-C5 and C5-C6. | | | | | | Neural foramina: No significant osseous neural foraminal narrowing. | | | | | | Soft tissues: Normal. | | | | | | | | | IMPRESSION - Early degenerative disc disease at C4-C5 and C5-C6. | | | | | | Dictated and Signed by: Julian Cee MD | | | Electronically signed: 09/21/2017 1:29 PM | | | | | + + + + + | Procedure Note | + + | Sky, Rad Results In - 09/21/2017 1:32 PM PST | | CLINICAL INFORMATION: neck pain with radiculopathy bilaterally. | | | | COMPARISON: None. | | | | FINDINGS: | | AP, lateral, oblique, and odontoid views of the cervical spine. | | | | Alignment: Normal. No listhesis. | | | | Vertebral bodies: Normal in height. No vertebral fracture. | | | | Disk spaces: Minimal to mild disc height loss at C4-C5 and C5-C6. | | | | Neural foramina: No significant osseous neural foraminal narrowing. | | | | Soft tissues: Normal. | | | | | | IMPRESSION - Early degenerative disc disease at C4-C5 and C5-C6. | | | | Dictated and Signed by: Julian Cee MD | | Electronically signed: 09/21/2017 1:29 PM | + + + +---------+ + + | Performing | Address | City/State/Zipcode | Phone Number | | Organization | | | | + +---------+ + + | [facility] | | | | + +---------+ + + documented in this encounter Visit Diagnoses + + | Diagnosis | + + | Cervical radicular pain Brachial neuritis or radiculitis nos | + + documented in this encounter"
--- OUTSIDE RECORDS SUMMARY | ~2020-01-13 | XMS | Encounter Summary ---
Demographics + + + | Address | [address] | | | [place] [address] | + + + | Home Phone | | + + + | Preferred Language | Unknown | + + + | Marital Status | Single | + + + | Church Affiliation | 1013 | + + + | Race | Unknown | + + + | Ethnic Group | Unknown | + + + Author + + + | Author | [facility] | | | and [place] | + + + | Organization | [facility] | | | [...] Team Providers + +------+ + | Care Credit Analysis Manager Name | Role | Phone | + +------+ + | Mohinder Gage DO | PCP | | + +------+ + Reason for Visit + + + | Reason | Comments | + + + | ED Follow-up | f/u methamphetamine abuse | + + + Encounter Details +--------+ + + + + | Date | Type | Department | Care Team | Description | +--------+ + + + + | 12/07/ | Telephone | [facility] | Antonia Goyal | ED Follow-up (f/u | | 2019 | | MED CTR CASE | [phone] | methamphetamine | | | | MANAGEMENT [address] | | abuse) | | | | [place], | | | | | | [place] [address] | | | | | | [phone] | | | +--------+ + + + [...]
--- OUTSIDE RECORDS SUMMARY | ~2020-01-13 | XMS | Encounter Summary ---
Demographics + + + | Address | [address] | | | [place] [address] | + + + | Home Phone [...] + + + | Author | [facility] | | | and [place] | + + + | Organization | [facility] | | | and [...] Team Providers + +------+ + | Care Transportation Department Head Name | Role | Phone | + +------+ + | Phi Singh NP | PCP | | + +------+ + Reason for Visit + + + | Reason | Comments | + + + | Finger Injury | | + + + Encounter Details +--------+ + + + + | Date | Type | Department | Care Team | Description | +--------+ + + + + | 04/05/ | Emergency | [facility] | Manjeet Kruger MD | Contusion of left | | 2017 | | MED CTR EMERGENCY | [address] | hand, initial | | | | CENTER [address] | [place] | encounter (Primary | | | | [place], [place] | [address] | Dx) | | | | [address] | | | | | | [phone] | | | +--------+ + + + [...] + + + | Blood Pressure | 131/82 | 12/07/2016 9:12 AM | | | | | PDT | | + + + + + | Pulse | 104 | 12/07/2016 9:12 AM | | | | | PDT | | + + + + + | Temperature | 36.4 C (97.5 F) | 12/07/2016 9:12 AM | | | | | PDT | | + + + + + | Respiratory Rate | 18 | 12/07/2016 9:12 AM | | | | | PDT | | + + + + + | Oxygen Saturation | 100% | 12/07/2016 9:12 AM | | | | | PDT | | + + + + + | Inhaled Oxygen | - | - | | | Concentration | | | | + + + + + | Weight | 73.9 kg (163 lb) | 12/07/2016 9:12 AM | | | | | PDT | | + + + + + | Height | 152.4 cm (5') | 12/07/2016 9:12 AM | | | | | PDT | | + + + + + | Body Mass Index | 31.83 | 12/07/2016 9:12 AM | | | | | PDT | | + + + + + documented in this encounter Discharge Instructions Instructions Manjeet Kruger MD - 12/07/2016Continue Tylenol and/or ibuprofen as needed for pain Ice and elevation Shola wrap to help with compression and immobilization Return for worsening symptoms, not improving, other new complaints documented in this encounter Medications at Time [...] + +--------+ + + + | XR HAND LEFT 3 + VW | STAT | 12/07/2016 | | Results for this | | | | 9:37 AM | | procedure are in the | | | | PDT | | results section. | + +--------+ + + + documented in this encounter Results XR Hand Left 3 + Vw (12/07/2016 9:37 AM PDT) + + | Specimen | + + | | + + + + + | Narrative | Performed At | + + + | CLINICAL INFORMATION: Finger injury COMPARISON: None available. | [facility] | | FINDINGS: 3 views of the left hand. Bones: No fracture or | | | dislocation. No periostitis. Joints: Joint spaces are preserved | | | and subchondral surfaces are smooth. No erosion. Soft tissue: | | | No swelling or abnormal calcification. IMPRESSION - No acute | | | osseous abnormality. Dictated and Signed by: Julian Cee MD | | | Electronically signed: 12/07/2016 9:41 AM | | + + + + + | Procedure Note | + + | Paredep Swanson In - 12/07/2016 9:44 AM PDT CLINICAL INFORMATION: Finger injury | | | | COMPARISON: None available. | | | | FINDINGS: | | 3 views of the left hand. | | | | Bones: No fracture or dislocation. No periostitis. | | | | Joints: Joint spaces are preserved and subchondral surfaces are smooth. No | | erosion. | | | | Soft tissue: No swelling or abnormal calcification. | | | | IMPRESSION - No acute osseous abnormality. | | | | Dictated and Signed by: Julian Cee MD | | Electronically signed: 12/07/2016 9:41 AM | + + + +---------+ + + | Performing | Address | City/State/Zipcode | Phone Number | | Organization | | | | + +---------+ + + | [facility] | | | | + +---------+ + + documented in this encounter Visit Diagnoses + + | Diagnosis | + + | Contusion of left hand, initial encounter - Primary | + + documented in this encounter"
--- OUTSIDE RECORDS SUMMARY | ~2020-01-13 | XMS | Encounter Summary ---
Demographics + + + | Address | [address] | | | [place] [address] | + + + | Home Phone | | + + + | Preferred Language | Unknown | + + + | Marital Status | Single | + + + | Jehovah'S Witness Affiliation | 1013 | + + + | Race | Unknown | + + + | Ethnic Group | Unknown | + + + Author + + + | Author | [facility] | | | and [place] | + + + | Organization | [facility] | | | and [place] [...] Team Providers + +------+ + | Care Legal Transcriptionist Name | Role | Phone | + +------+ + PCP | Unavailable | + +------+ + Encounter Details +--------+ + + + + | Date | Type | Department | Care Team | Description | +--------+ + + + + | 06/11/ | [facility] | [facility] | Lizzie Olivares | | | 2009 | Encounter | MED CTR EMERGENCY | MD [address] Mcfarlane | | | | | [place] [address] | [facility], | | | | | [place] | [place] [address] | | | | | [address] | [phone] | | | | | [phone] | | | +--------+ + + + [...]
--- OUTSIDE RECORDS SUMMARY | ~2020-01-13 | XMS | Encounter Summary ---
Demographics + + + | Address | [address] | | | [place] [address] | + + + | Home Phone | | + + + | Preferred Language | Unknown | + + + | Marital Status | Single | + + + | Anabaptism Affiliation | 1013 | + + + | Race | Unknown | + + + | Ethnic Group | Unknown | + + + Author + + + | Author | [facility] | | | and [place] | + + + | Organization | [facility] | | | and [place] | [...] Team Providers + +------+ + | Care Broadcast Supervisor Name | Role | Phone | + +------+ + | Katy Sanford MD | PCP | | + +------+ + Reason for Visit + + + | Reason | Comments | + + + | Missed Visit | late cancel | + + + Encounter Details +--------+ + + + + | Date | Type | Department | Care Team | Description | +--------+ + + + + | 10/31/ | Telephone | [facility] | Gill Cantu, | Missed Visit (late | | 2018 | | [facility] | Aide | cancel) | | | | THERAPY [address] | | | | | [address] [place] | | | | | | [address] | | | | | | [phone] | | | +--------+ + + + [...]
--- OUTSIDE RECORDS SUMMARY | ~2020-01-13 | XMS | Encounter Summary ---
Demographics + + + | Address | [address] | | | [place] [address] | + + + | Home Phone | | + + + | Preferred Language | Unknown | + + + | Marital Status | Single | + + + | Rastafarian Affiliation | 1013 | + + + | Race | Unknown | + + + | Ethnic Group | Unknown | + + + Author + + + | Author | [facility] | | | and [place] | + + + | Organization | [facility] | | | and [place] [...] Team Providers + +------+ + | Care Engineered Wood Designer Name | Role | Phone | + +------+ + PCP | Unavailable | + +------+ + Encounter Details +--------+ + + + + | Date | Type | Department | Care Team | Description | +--------+ + + + + | 04/21/ | [facility] | [facility] | Alexis Pacheco | | | 2011 | Encounter | MED CTR EMERGENCY | MD [address] | | | | | CENTER [address] | [place] | | | | | [place] | [place] [address] | | | | | [address] | [phone] | | | | | [phone] | | | +--------+ + + + [...]
--- OUTSIDE RECORDS SUMMARY | ~2020-01-13 | XMS | Encounter Summary ---
Demographics + + + | Address | [address] | | | [place] [address] | + + + | Home Phone | | + + + | Preferred Language | Unknown | + + + | Marital Status | Single | + + + | Restorationist Affiliation | 1013 | + + + | Race | Unknown | + + + | Ethnic Group | Unknown | + + + Author + + + | Author | [facility] | | | and [place] | + + + | Organization | [facility] | | | and [place] | [...] Team Providers + +------+ + | Care Quarry Plug And Feather Driller Name | Role | Phone | + [...] | Neurology | Diagnoses | Juvenal, | Dimitrova, | | | Services | | Thoracic | MD Katy | [address] [place], | | | Required | | outlet | [address] | [address] | | | | | syndrome | [address] [place] | [address] | | | | | associated | [place] | [address] | | | | | with | [address] | [place], [place] | | | | | cervical rib | Phone: | [phone] | | | | | | [phone] | Phone: | | | | | | Fax: | [phone] | | | | | | [phone] | Fax: | | | | | | | [phone] | +--------+ + + + + + Reason for Visit + + + | Reason | Comments | + + + | Referral | | + + + Encounter Details +--------+ + + + + | Date | Type | Department | Care Team | Description | +--------+ + + + + | 10// | Telephone | [facility] | Katy Sanford MD | Referral | | 2018 | | MED[facility] | [address] | | | | | [address] | [place] | | | | | [place] | [address] | | | | | [address] | | | | | | [phone] | | | +--------+ + + + [...]
--- OUTSIDE RECORDS SUMMARY | ~2020-01-13 | XMS | Encounter Summary ---
Demographics + + + | Address | [address] | | | [place] [address] | + + + | Home Phone | | + + + | Preferred Language | Unknown | + + + | Marital Status | Single | + + + | Mormon Affiliation | 1013 | + + + | Race | Unknown | + + + | Ethnic Group | Unknown | + + + Author + + + | Author | [facility] | | | and [place] | + + + | Organization | [facility] | | | and [place] [...] Team Providers + +------+ + | Care Payroll Services Analyst Name | Role | Phone | + +------+ + PCP | Unavailable | + +------+ + Encounter Details +--------+ + + + + | Date | Type | Department | Care Team | Description | +--------+ + + + + | 04/21/ | [facility] | [facility] | Alexis Pacheco | | | 2011 | Encounter | MED CTR EMERGENCY | MD Nathan [address] | | | | | CENTER [address] | [place] | | | | | [place] | [place] [address] | | | | | [address] | [phone] | | | | | [phone] | | | +--------+ + + + [...]
--- OUTSIDE RECORDS SUMMARY | ~2020-01-13 | XMS | Encounter Summary ---
Demographics + + + | Address | [address] | | | [place] [address] | + + + | Home Phone | | + + + | Preferred Language | Unknown | + + + | Marital Status | Single | + + + | Latter Day Affiliation | 1013 | + + + | Race | Unknown | + + + | Ethnic Group | Unknown | + + + Author + + + | Author | [facility] | | | and [place] | + + + | Organization | [facility] | | | and [place] [...] Team Providers + +------+ + | Care Dish Cloth Inspector Name | Role | Phone | + [...] + + | 12/05/ | Emergency | [facility] | Jim Hurd | Amphetamine abuse | | 2020 | | [facility] | MD De[facility] [address] | ([facility]) (Primary Dx) | | | | CENTER [address] | [address] [place] | | | | | [place], [place] | [place] [address] | | | | | [address] | [phone] | | | | | [phone] | | | | | | | Wally Hernandez MD | | | | | | [address] | | | | | | [place], [place] | | | | | | [address] | | | | | | | [...] + + + | Blood Pressure | 120/79 | 12/06/2019 6:50 AM | | | | | PDT | | + + + + + | Pulse | 92 | 12/06/2019 7:23 AM | | | | | PDT | | + + + + + | Temperature | 36.4 C (97.6 F) | 12/06/2019 5:04 AM | | | | | PDT | | + + + + + | Respiratory Rate | 22 | 12/06/2019 6:50 AM | | | | | PDT | | + + + + + | Oxygen Saturation | 98% | 12/06/2019 6:50 AM | | | | | PDT | | + + + + + | Inhaled Oxygen | - | - | | | Concentration | | | | + + + + + | Weight | 49.9 kg (110 lb) | 12/06/2019 5:04 AM | | | | | PDT | | + + + + + | Height | 152.4 cm (5') | 12/06/2019 5:04 AM | | | | | PDT | | + + + + + | Body Mass Index | 21.48 | 12/06/2019 5:04 AM | | | | | PDT | | + + + + + documented in this encounter Discharge Instructions AttachmentsThe following attachments cannot be sent through Care Everywhere.Getting Help, Emeli ddiction (Armenian)documented in this encounter Medications at Time of [...] + +--------+ + + + | EXTRA LAVENDER TOP | Routin [...] | + +--------+ + + + | MAGNESIUM | STAT | 12/06/2019 | | Results for this | | | | 6:51 AM | | procedure are in the | | | | PDT | | results section. | + +--------+ + + + | CK TOTAL | STAT | 12/06/2019 | | Results for this | | | | 6:51 AM | | procedure are in the | | | | PDT | | results section. | + +--------+ + + + | COMPREHENSIVE | STAT | 12/06/2019 [...] this encounter Results Extra Blue Top Tube (12/06/2019 6:51 AM [...] [address] | [place] | [phone] | | [facility] | | [address] | | | - LABORATORY | | [...] | Top Tube | | | [facility] | | [...] + | [facility] | [address] | [place] | [phone] | | [facility] | | [address] | | | - LABORATORY | | | | + + + + + Extra Lavender Top Tube (12/06/2019 6:51 AM PDT) + +-------+ + + + | Component | Value | Ref Range | Performed | Pathologist | | | | | At | Signature | + +-------+ + + + | Extra | Done | | [facility] | | | Lavender | | | [facility] | | | Top Tube | [...] + | [facility] | [address] | [place] | [phone] | | [facility] | | [address] | | | - LABORATORY | | | | + + + + + , Serum, Qual (12/06/2019 6:51 AM PDT) + + + + + + | Component | Value | Ref Range | Performed | Pathologist | | | | | At | Signature | + + + + + + | hCG Screen, | Negative | Negative | [facility] | | | Serum | | | [facility] | | [...] + + | [facility] | [address] | [place] | [phone] | | [facility] | | [address] | | | - LABORATORY | | [...] | + + + + + | [facility] | [address] | [place] | [phone] | | [facility] | | [address] | | | - LABORATORY | | | | + + + + + CK Total (12/06/2019 6:51 AM PDT) + +---------+ + + + | Component | Value | Ref Range | Performed | Pathologist | | | | | At | Signature | + +---------+ + + + | CK TOTAL | 415 (H) | 34 - 145 U/L | [facility] | | | | | | [facility] [...] | + + + + + | [facility] | [address] | [place], [place] | [phone] | | [facility] | | [address] | | | - LABORATORY | | | | + + + + + Comprehensive Metabolic Panel (12/06/2019 6:51 AM PDT) + + + + + + | Component | Value | Ref Range | Performed | Pathologist | | | | | At | Signature | + + + + + + | Na | 139 | 136 - 145 | [facility] | [...] + + + + | Cl | 104 | 98 - 107 mmol/L | [facility] | | | | | | [facility] | | | | | | MEDICAL | | | | | | CENTER - | | | | | | LABORATORY | | + + + + + + | CO2 | 26 | 20 - 31 mmol/L | [facility] | | | | | | [facility] | | | | | | MEDICAL | | | | | | CENTER - | | | | | | LABORATORY | | + + + + + + | Anion Gap | 9 | 3 - 16 mmol/L | [facility] | | | | | | [facility] | | | | | | MEDICAL | | | | | | CENTER - | | | | | | LABORATORY | | + + + + + + | Glucose | 108 (H) | 60 - 106 mg/dL | [facility] | | | | | | [facility] | | | | | | MEDICAL | | | | | | CENTER - | | | | | | LABORATORY | | + + + + + + | BUN | 11 | 9 - 23 mg/dL | [facility] | | | | | | [facility] | | | | | | MEDICAL | | | | | | CENTER - | | | | | | LABORATORY | | + + + + + + | Creatinine | 0.65 | 0.55 - 1.02 | [facility] | [...] mL/min/1.73m2 | [facility] | | | CROATIAN | RATE,ESTIMATED | | MEDICAL | | | | mL/min/1.43n7Rben than | | CENTER - | | [...] + + + + | Calcium | 9.6 | 8.7 - 10.4 | [facility] | | | | | mg/dL | [facility] | | | | | | MEDICAL | | | | | | CENTER - | | | | | | LABORATORY | | + + + + + + | Albumin | 4.4 | 3.2 - 4.8 g/dL | [facility] [...] + + + + | Total | 6.8 | 5.7 - 8.2 g/dL | [facility] | | | Protein | | | [facility] | | | | | | MEDICAL | | | | | | CENTER - | | | | | | LABORATORY | | + + + + + + | AST | 31 | 0 - 34 U/L | [facility] [...] + + + + | Alkaline | 66 | 46 - 116 U/L | [facility] | | | Phosphatase | | | [facility] | | | | | | MEDICAL | | | | | | CENTER - | | | | | | LABORATORY | | + + + + + + | Globulin | 2.4 | 2.1 - 3.8 g/dL | [facility] | | | | | | [facility] | | | | | | MEDICAL | | | | | | CENTER - | | | | | | LABORATORY | | + + + + + + | Albumin/Juana | 1.8 | 0.8 - 1.9 | [facility] | | | bulin Ratio | | | [facility] | | | | | | MEDICAL | | | | | | CENTER - | | | | | | LABORATORY | | + + + + + + | BUN/Creatin | 16.9 | | [facility] | | | ine [...] + | [facility] | [address] | [place] | [phone] | | [facility] | | [address] | | | - LABORATORY | | | | + + + + + CBC with Differential (12/06/2019 6:51 AM PDT) + + + + + + | Component | Value | Ref Range | Performed | Pathologist | | | | | At | Signature | + + + + + + | WBC | 15.3 (H) | 4.0 - 11.0 K/uL | [facility] | | | | | | [facility] | | | | | | MEDICAL | | | | | | CENTER - | | | | | | LABORATORY | | + + + + + + | RBC | 4.05 | 3.70 - 5.20 | [facility] | | | | | M/uL | [facility] | | | | | | MEDICAL | | | | | | CENTER - | | | | | | LABORATORY | | + + + + + + | Hemoglobin | 13.3 | 11.5 - 16.0 | [facility] | | | | | g/dL | [facility] | | | | | | MEDICAL | | | | | | CENTER - | | | | | | LABORATORY | | + + + + + + | Hematocrit | 38.0 | 34.0 - 47.0 % | [facility] [...] + + + + | MCH | 32.8 | 28.0 - 35.0 pg | [facility] | | | | | | [facility] | | | | | | MEDICAL | | | | | | CENTER - | | | | | | LABORATORY | | + + + + + + | MCHC | 35.0 | 32.0 - 36.0 | [facility] | | | | | g/dL | [facility] | | | | | | MEDICAL | | | | | | CENTER - | | | | | | LABORATORY | | + + + + + + | RDW-CV | 12.3 | <15.0 % | [facility] | | | | | | [facility] | | | | | | MEDICAL | | | | | | CENTER - | | | | | | LABORATORY | | + + + + + + | RDW-SD | 42.7 | 35.1 - 46.3 fL | [facility] | | | | | | [facility] | | | | | | MEDICAL | | | | | | CENTER - | | | | | | LABORATORY | | + + + + + + | Platelet | 367 | 140 - 440 K/uL | [facility] | | | Count | | | [facility] | | | | | | MEDICAL | | | | | | CENTER - | | | | | | LABORATORY | | + + + + + + | MPV | 9.3 | 6.5 - 12.4 fL | [facility] | | | | | | [facility] | | | | | | MEDICAL | | | | | | CENTER - | | | | | | LABORATORY | | + + + + + + | % | 74.8 | 45.0 - 82.0 % | [facility] | | | Neutrophils | | | [facility] | | | | | | MEDICAL | | | | | | CENTER - | | | | | | LABORATORY | | + + + + + + | % | 19.6 (L) | 20.0 - 45.0 % | [facility] | | | Lymphocytes | | | [facility] | | | | | | MEDICAL | | | | | | CENTER - | | | | | | LABORATORY | | + + + + + + | % Monocytes | 4.5 | 4.0 - 12.0 % | [facility] | | | | | | [facility] | | | | | | MEDICAL | | | | | | CENTER - | | | | | | LABORATORY | | + + + + + + | % | 0.2 | 0.0 - 5.0 % | [facility] | | | Eosinophils | | | [facility] | | | | | | MEDICAL | | | | | | CENTER - | | | | | | LABORATORY | | + + + + + + | % Basophils | 0.5 | 0.0 - 1.0 % | [facility] | | | | | | [facility] | | | | | | MEDICAL | | | | | | CENTER - | | | | | | LABORATORY | | + + + + + + | % Immature | 0.4Comment: For | 0.0 - 0.4 % | [facility] | | | Granulocyte | patients, use the | | [facility] | | | s | special reference ranges | | MEDICAL | | | | listed below. | | CENTER - | | | | | | LABORATORY | | + + + + + + | Absolute | 11.42 (H) | 1.80 - 8.50 | [facility] | | | Neutrophils | | K/uL | [facility] | | | | | | MEDICAL | | | | | | CENTER - | | | | | | LABORATORY | | + + + + + + | Absolute | 3.00 | 0.60 - 3.20 | [facility] | | | Lymphocytes | | K/uL | [facility] | | | | | | MEDICAL | | | | | | CENTER - | | | | | | LABORATORY | | + + + + + + | Absolute | 0.69 | 0.00 - 1.00 | [facility] | | | Monocytes | | K/uL | [facility] | | | | | | MEDICAL | | | | | | CENTER - | | | | | | LABORATORY | | + + + + + + | Absolute | 0.03 | 0.00 - 0.40 | [facility] | | | Eosinophils | | K/uL | [facility] | | | | | | MEDICAL | | | | | | CENTER - | | | | | | LABORATORY | | + + + + + + | Absolute | 0.08 | 0.00 - 0.10 | [facility] | | | Basophils | | K/uL | [facility] | | | | | | MEDICAL | | | | | | CENTER - | | | | | | LABORATORY | | + + + + + + | Absolute | 0.06 (H)Comment: For | 0.00 - 0.03 | [facility] | | | Immature | patients, use | K/uL | [facility] | | | Granulocyte | the special reference | | MEDICAL | | | s | ranges listed below. | | CENTER - | | | | | | LABORATORY | | + + + + + + | % nRBC | 0 | 0 - 2 per 100 | [facility] | | | | | WBCs | [facility] | | | | | | MEDICAL | | | | | | CENTER - | | | | | | LABORATORY | | + + + + + + | Absolute | 0.00 | 0.00 - 0.01 | [facility] | | | nRBC | | K/uL | [facility] | [...] ranges: Trim. Absolute (K/uL) Percentage (%) | [facility] | | 1st 0.003-0.091 K/uL 0.0-0.9% 2nd 0.007-0.247 K/uL | [facility] | | 0.1-2.0% 3rd 0.018-0.456 K/uL 0.1-2.0% | - LABORATORY | + + + + + + + + | Performing | Address | City/State/Zipcode | Phone Number | | Organization | | | | + + + + + | [facility] | [address] | [place] | [phone] | | [facility] | | [address] | | | - LABORATORY | | | | + + + + + Drugs of Abuse, Screen, Urine (12/06/2019 6:15 AM PDT) + + + + + [...] | s Screen, | | | [facility] | | | Urine | | | MEDICAL | | | | | | CENTER - | | | | | | LABORATORY | | + + + + + + | Benzodiazep | Negative | Negative | [facility] | | | tameka | | | [facility] | | | Screen, | | | MEDICAL | | | Urine | | | CENTER - | | | | | | LABORATORY | | + + + + + + | Cannabinoid | Negative | Negative | [facility] | | | s Screen, | | | [facility] | | | Urine | | | MEDICAL | | | | | | CENTER - | | | | | | LABORATORY | | + + + + + + | Cocaine | Negative | Negative | [facility] | | | Screen, | | | [facility] | | | Urine | | | MEDICAL | | | | | | CENTER - | | | | | | LABORATORY | | + + + + + + | Methadone | Negative | Negative | [facility] | | | Screen, | | | [facility] | | | Urine | | | MEDICAL | | | | | | CENTER - | | | | | | LABORATORY | | + + + + + + | Opiates | Negative | Negative | [facility] | | | Screen, | | | [facility] | | [...] + + | [facility] | [address] | [place] | [phone] | | [facility] | | [address] | | | - LABORATORY | | | | + + + + + Urinalysis with Microscopic with Culture if Indicated (12/06/2019 6:15 AM PDT) + + + + + [...] + + + + | Clarity | Clear | Clear | [facility] | | | | | | [facility] | | | | | | MEDICAL | | | | | | CENTER - | | | | | | LABORATORY | | + + + + + + | pH, Urine | 5.0 | 5.0 - 8.0 | [facility] | | | | | | [facility] | | | | | | MEDICAL | | | | | | CENTER - | | | | | | LABORATORY | | + + + + + + | Specific | 1.020 | 1.001 - 1.030 | [facility] | | | [place], | | | [facility] | | | Urine | | | MEDICAL | | | | | | CENTER - | | | | | | LABORATORY | | + + + + + + | Protein, | Negative | Negative | [facility] | | | Urine | | | [facility] | | | | | | MEDICAL | | | | | | CENTER - | | | | | | LABORATORY | | + + + + + + | Blood, | Negative | Negative | [facility] | [...] + + + + | Ketones, | Negative | Negative | [facility] | [...] + + + + | Leukocyte | Negative | Negative | [facility] | [...] + + + | White Blood | 0-2 | 0 - 2 /HPF | [facility] | | | Cells, | | | [facility] | | | Urine | | | MEDICAL | | | | | | CENTER - | | | | | | LABORATORY | | + + + + + + | Red Blood | 0-2 | 0 - 2 /HPF | [facility] | | | Cells, | | | [facility] | | | Urine | | | MEDICAL | | | | | | CENTER - | | | | | | LABORATORY | | + + + + + + | Squamous | 25-50 (A) | 0 - 2 /LPF | [facility] | | | Epithelial | | | 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
--- OUTSIDE RECORDS SUMMARY | ~2020-01-13 | XMS | Encounter Summary ---
Demographics + + + | Address | [address] | | | [place] [address] | + + + | Home Phone | | + + + | Preferred Language | Unknown | + + + | Marital Status | Single | + + + | Christian Affiliation | 1013 | + + + | Race | Unknown | + + + | Ethnic Group | Unknown | + + + Author + + + | Author | [facility] | | | and [place] | + + + | Organization | [facility] | | | and [...] Team Providers + +------+ + | Care Archery Equipment Repairer Name | Role | Phone | + +------+ + | Katy Sanford MD | PCP | | + +------+ + Reason for Visit + + + | Reason | Comments | + + + | Therapy Daily | | | Treatment | | + + + Evaluate & Treat (Routine) +--------+ + + + + + | Status | Reason | Specialty | Diagnoses / | Referred By | Referred To | | | | | Procedures | Contact | Contact | +--------+ + + + + + | Closed | Specialty | Physical | Diagnoses | Juvenal, | Bird, | | | Services | Therapy / | Thoracic | MD Katy | Liv Montero, | | | Required | Rehabilitatio | outlet | [address] | [address] | | | [address] | syndrome | [address] [place] [address] | | | | | associated | [place] | [place], | | | | | with | [address] | [place] [address] | | | | | cervical rib | Phone: | Phone: | | | | | | [phone] | [phone] | | | | | | Fax: | Fax: | | | | | | [phone] | [phone] | +--------+ + + + + + Encounter Details +--------+---------+ + + + | Date | Type | Department | Care Team | Description | +--------+---------+ + + + | 10/16/ | Office | [facility] | Liv Pang | Thoracic outlet | | 2019 | Visit | [facility] | L, PT [address] | syndrome associated | | | | THERAPY [address] | [place] | with cervical rib | | | | [address] [place] | [address] | | | | | [address] | | | | | | [phone] | | | +--------+---------+ + + + Social History [...] documented as of this encounter Progress Notes Liv Pang, PT - 10/16/2018 10:00 AM PST [facility] [address] [place] [phone] Physical Therapy Daily Treatment Note Date: 10/16/2018 Patient Information Patient Name: Nataly Martinez Date of : 1980 Age: 38 y.o. Encounter Diagnoses Code Name Primary? 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 Pain Assessment: Objective: -Manual: R and L C1-2 UPA grade 4 to 4+ progression. -Exercise: foam roller and nerve glides emphasis for treatments - emphasize self care due t o limited insurance avail Exercise/Activity 10/16/18 MHP/IASTM or ball MHP 6' Neck AROM 5' sidebending, rotation with cues Foam roller: pec stretch - major X 2' with L wrist slack to prevent neural tension pain Median nerve glides X 15 Shoulder motions - slow with behind coronal plane [place] x 15 swimmer Chin tucks Head stabilization combo with rows -Modalities: MHP to neck at beginning x 10' -Other: Teach sleeping techniques to limit compression of neural system Emphasizing kristy ws and also hand/wrist position. HEP: Access Code: [email or web address] URL: [email or web address] Date: 10/16/2018 Prepared by: Liv Pang Exercises Supine Static Chest Stretch on Foam Roll - 2 minutes - 2x daily Median Nerve Flossing - 15 reps - 3x daily - 7x weekly Foam Roll Alternating Arm Flexion "Swimmer" - 10 reps - 3 sets - 30 sec hold Snow [place] on Foam Roll - 1 min - 2x daily Assessment: Working on L C1-2 helped R rotation which was her bigger complaint that L rotation. Plan: IASTM to neck versus deep tissue manually. Also continue to treat for upper cervical dysfu nction with mobs. 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
--- OUTSIDE RECORDS SUMMARY | ~2020-01-13 | XMS | Encounter Summary ---
Demographics + + + | Address | [address] | | | [place] [address] | + + + | Home Phone | | + + + | Preferred Language | Unknown | + + + | Marital Status | Single | + + + | Adventism Affiliation | 1013 | + + + | Race | Unknown | + + + | Ethnic Group | Unknown | + + + Author + + + | Author | [facility] | | | and [place] | + + + | Organization | [facility] | | | and [place] [...] Team Providers + +------+ + | Care Ict Quality Assurance Engineer Name | Role | Phone | [...] Description | +--------+--------+ + + + | 08/11/ | Refill | [facility] | Katy Sanford MD | Medication Refill | | 2018 | | MEDICINE [place] | [address] | | | | | [address] | [place] | | | | | [place], [place] | [address] | | | | | [address] | | | | | | [phone] | | | +--------+--------+ + + + [...]
--- OUTSIDE RECORDS SUMMARY | ~2020-01-13 | XMS | Encounter Summary ---
Demographics + + + | Address | [address] | | | [place] [address] | + + + | Home Phone | | + + + | Preferred Language | Unknown | + + + | Marital Status | Single | + + + | Moravian Affiliation | 1013 | + + + | Race | Unknown | + + + | Ethnic Group | Unknown | + + + Author + + + | Author | [facility] | | | and [place] | + + + | Organization | [facility] | | | and [place] [...] Team Providers + +------+ + | Care Yard Hand Name | Role | Phone | + +------+ + PCP | Unavailable | + +------+ + Encounter Details +--------+ + + + + | Date | Type | Department | Care Team | Description | +--------+ + + + + | 07/01/ | Hospital | [facility] | Joe Lauren | Other abnormal | | 2001 | Encounter | [facility] | [place] [phone] | product of | | | | OUTPATIENT | (Fax) | conception | | | | PROCEDURES [address] | | | | [address] | | | | | | [place] | | | | | | [address] | | | | | | [phone] | | | +--------+ + + + [...] + | Diagnosis | + + | Other abnormal product of conception | + + documented in this encounter"
--- OUTSIDE RECORDS SUMMARY | ~2020-01-13 | XMS | Encounter Summary ---
Demographics + + + | Address | [address] | | | [place] [address] | + + + | Home Phone | | + + + | Preferred Language | Unknown | + + + | Marital Status | Single | + + + | Scientology Affiliation | 1013 | + + + | Race | Unknown | + + + | Ethnic Group | Unknown | + + + Author + + + | Author | [facility] | | | and [place] | + + + | Organization | [facility] | | | and [...] Team Providers + +------+ + | Care Equipment Or Machinery Cleaner Name | Role | Phone | + [...] Description | +--------+--------+ + + + | 03/09/ | Refill | [facility] | Katy Sanford MD | Medication Refill | | 2019 | | [facility] [place] | [address] | | | | | [address] | [place] | | | | | [place], [place] | [address] | | | | | [address] | | | | | | [phone] | | | +--------+--------+ + + + [...]
--- OUTSIDE RECORDS SUMMARY | ~2020-01-13 | XMS | Encounter Summary ---
Demographics + + + | Address | [address] | | | [place] [address] | + + + | Home Phone | | + + + | Preferred Language | Unknown | + + + | Marital Status | Single | + + + | Temple Affiliation | CHR | + + + | Race | White | + + + | Ethnic Group | Not or | + + + Author + + + | Author | [facility] | + + + | Organization | [facility] & [facility] | + + + | Address | Unknown | + + + | Phone | Unavailable | + + + Support + + +---------+ + | Name | Relationship | Address | Phone | + + +---------+ + | Radha Soria | ECON | Unknown | | + + +---------+ + Care Team Providers + +------+ + | Care Country Printer Apprentice Name | Role | Phone | [...] + + | 12/10/ | Emergency | [facility] Emergency | [place], | | | 2019 | | Department [address] | MD Naldo [address] | | | | | [address] | [facility] Jaycee Soto | | | | | [facility] | [place], [place] | | | | | [place], [place] | [address] | | | | | [address] | [phone] | | | | | [phone] | | | +--------+ + + + [...] COLLECTIVE?NOTIFICATION?12/11/2019 20:25?NATALY BEDOYA?MRN: | COLLECTIVE | | [id number] Criteria Met 3 Facilities In 60 Days 5 Visits | MEDICAL | | In 12 Months Has Guidelines PDMP Security and Safety No | TECHNOLOGIES | | recent Security Events currently on file ED Care Guidelines from | | | [facility] Anderson Last Updated: 12/11/19 10:08 AM Care | | | Recommendation: Receiving mental health services through [facility]. | | | Please contact [facility] for any mental health concerns: Carlo | | | [phone] [place] [phone] Crisis Line [phone] These | | | are guidelines and [...] | | | 2 MG TABLET 5 ISAEBLA OLSWANGER 4 0 2019-03-14 LORAZEPAM 0.5 MG [...] E.D. Visit Count (12 mo.) Facility Visits [facility] 1 | | | [facility] and [facility] 2 [facility] | | | [place] 3 [facility] 11 Total 17 Note: | | | Visits indicate total known visits. Recent Emergency Department | | | Visit Summary Showing 10 most recent visits out of 18 in the past 12 | | | months Date Facility City State Type Diagnoses or Chief Complaint | | | Dec 11, 2019 [facility] and [facility] [place] Emergency | | | 10,800. Medication request Dec 11, 2019 [facility] and | | | [facility] [place] Emergency 10,800. Infection | | | 10,800. L Arm/Headache 18,400. Personal history of other | | | diseases of the nervous system and 18,400. Cutaneous abscess, | | | unspecified 18,400. Other stimulant abuse, uncomplicated | | | 18,400. Paresthesia of skin Dec 08, 2019 [facility] | | | [facility] Emergency Spasms Other stimulant abuse, | | | uncomplicated Other problems related to lifestyle Apr , | | | 2020 [facility]. [place] Emergency | | | Hallucinations Other stimulant abuse, uncomplicated Apr | | | 2019 [facility]. [place] Emergency Medical | | | Complacations from alc and drug abuse Spasms Other | | | stimulant abuse, uncomplicated Dec 01, 2019 [facility] | | | [facility]. [place] Emergency CP,sob Pain Tachycardia | | | Restlessness and agitation Other stimulant use, unspecified | | | with intoxication, unspecifi Panic disorder [episodic paroxysmal | | | anxiety] Nov 20, 2019 [facility] | | | Emergency needle stuck in arm Foreign Body in Skin | | | Other injury of unspecified body region, initial encounter Mar | | | 2019 [facility] Emergency Pruritis | | | Adverse effect of unspecified drugs, medicaments and biologic | | | Pruritus, unspecified Urticaria, unspecified Nov 16, 2019 | | | [facility] Emergency Arm Injury | | | Superficial foreign body of left upper arm, initial encounter | | | Contact with needle (sewing), initial encounter Encounter for | | | immunization Nov 15, 2019 [facility]. [place] | | | Emergency FB STUCK IN ARM Other psychoactive substance | | | use, unspecified, uncomplicated Other injury of unspecified body | | | region, initial encounter Recent Inpatient Visit Summary | | | No recorded inpatient visits. Care Team Provider Specialty Phone | | | Fax Service Dates Giancarlo Quarles -, [facility] | | | Health Worker Nov 16, 2019 - Current | | | [employer] Portal This patient has registered at the [facility] | | | [facility] Emergency Department For more information | | | visit: | | | [email or web address] | | | [email or web address] PLEASE NOTE: 1. Any care recommendations [...] or completeness of information provided. ? 2020 [employer] | | | [employer] - [email or web address] | | + + + + + [...] on | | fileED Care Guidelines from [facility] - [place] Updated: 12/11/19 10:08 AM Care | | Recommendation:Receiving mental health services through [facility]. Please contact | | [facility] for any mental health concerns:Carlo [phone] | | [phone] Line [phone] are guidelines and the provider should | [...] 0 E.D. Visit Count (12 mo.)Facility Visits [facility] 1 [facility] | | and Science [place] 2 [facility] 3 [facility] | | Center 11 Total 17 Note: Visits indicate total known visits. Recent Emergency | | Department Visit SummaryShowing 10 most recent visits out of 18 in the past 12 | | monthsDate Facility City State Type Diagnoses or Chief Complaint Dec 11, 2019 [place] | | [facility] [place] Emergency 10,800. Medication request Dec 8, | | 2019 [facility] [place] Emergency 10,800. Infection | | 10,800. L Arm/Headache 18,400. Personal history of other diseases of the nervous | | system and 18,400. Cutaneous abscess, unspecified 18,400. Other stimulant abuse, | | uncomplicated 18,400. Paresthesia of skin [facility] | | Emergency Spasms Other stimulant abuse, uncomplicated Other problems related | | to lifestyle Dec 08, 2019 [facility]. [place] Emergency Hallucinations | | Other stimulant abuse, uncomplicated Dec 06, 2019 [facility] | | Emergency Medical Complacations from alc and drug abuse Spasms Other stimulant | | abuse, uncomplicated Dec 01, 2019 [facility]. [place] Emergency | | CP,sob Pain Tachycardia Restlessness and agitation Other stimulant use, | | unspecified with intoxication, unspecifi Panic disorder [episodic paroxysmal anxiety] | | Nov 20, 2019 [facility]. [place] Emergency needle stuck in arm | | Foreign Body in Skin Other injury of unspecified body region, initial encounter Mar | [facility] Pruritis Adverse effect of | | unspecified drugs, medicaments and biologic Pruritus, unspecified Urticaria, | | unspecified Nov 16, 2019 [facility] Emergency Arm Injury | | Superficial [...] Phone Fax Service Dates Giancarlo Quarles -, [facility] | | Worker Nov 16, 2019 - Current Collective PortalThis patient has | | registered at the [facility] Emergency Department For more | | information visit: | | [email or web address] PLEASE | | NOTE: 1. Any care [...] completeness of information | | provided.? 2020 [employer] - [email or web address] | |[facility] 3 | |[facility] 11 | |Total 17 | |Note: Visits indicate total known visits. | | | |Recent Emergency Department Visit Summary | |Showing 10 most recent visits out of 18 in the past 12 months | |Date Facility City State Type Diagnoses or Chief Complaint | |Dec 11, 2019 [facility] [place] Emergency | | 10,800. Medication request | | | |Dec 11, 2019 [facility] [place] Emergency | | 10,800. Infection | | 10,800. L Arm/Headache | | 18,400. Personal history of other diseases of the nervous system and | | 18,400. Cutaneous abscess, unspecified | | 18,400. Other stimulant abuse, uncomplicated | | 18,400. Paresthesia of skin | | | |Dec 08, 2019 [facility]. [place] Emergency | | Spasms | | Other stimulant abuse, uncomplicated | | Other problems related to lifestyle | | | |Dec 08, 2019 [facility]. [place] Emergency | | Hallucinations | | Other stimulant abuse, uncomplicated | | | |Dec 06, 2019 [facility]. [place] Emergency | | Medical Complacations from alc and drug abuse | | Spasms | | Other stimulant abuse, uncomplicated | | | |Dec 01, 2019 [facility]. [place] Emergency | | CP,sob | | Pain | | Tachycardia | | Restlessness and agitation | | Other stimulant use, unspecified with intoxication, unspecifi | | Panic disorder [episodic paroxysmal anxiety] | | | |Nov 20, 2019 [facility]. [place] Emergency | | needle stuck in arm | | Foreign Body in Skin | | Other injury of unspecified body region, initial encounter | | | |Nov 16, 2019 [facility] Emergency | | Pruritis | | Adverse effect of unspecified drugs, medicaments and biologic | | Pruritus, unspecified | | Urticaria, unspecified | | | |Nov 16, 2019 [facility] Emergency | | Arm Injury | | Superficial foreign body of left upper arm, initial encounter | | Contact with needle (sewing), initial encounter | | Encounter for immunization | | | |Nov 15, 2019 [facility]. [place] Emergency | | FB STUCK IN ARM | | Other psychoactive substance use, unspecified, uncomplicated | | Other injury of unspecified body region, initial encounter | | | | | | | |Recent Inpatient Visit Summary | |No recorded inpatient visits. | | | |Care Team | |Provider Specialty Phone Fax Service Dates | |Giancarlo Quarles -, [facility] Community Health Worker Nov 16, 2019 - C cony | | | |[employer] Portal | |This patient has registered at the [facility] and [facility] Emergency Departmen t | |For more information visit: [email or web address] | |PLEASE NOTE: | | 1. Any care recommendations and other clinical information are provided as guidelines or for historical purposes only, and providers should exercise their own clinical judgment whe n providing care. | | 2. You may only use this information for purposes of treatment, payment or health care o perations activities, and subject to the limitations of applicable Home[employer] Policies. | | 3. You should consult directly with the organization that provided a care guideline or o ther clinical history with any questions about additional information or accuracy or complet eness of information provided. | | | |? 2020 [employer]. - [email or web address] | + + + + + + + | Performing | Address | City/State/Zipcode | Phone Number | | Organization | | | | + + + + + | [facility] | [address] | [place], [place] | [phone] | | [employer] | [address] | [address] | | + + + + + [...] +--------+---------+------+------+------+ + +---+ | | | | pqprziznm-LOOIJJMoyoi-bbroqajdlm | | | (LET) topical gel 3 mL 3 mL, | | | topical, ONCE, 1 dose, 12/11/19 | | | at 2145 | | + +---+ | | | + +---+ documented in this encounter"
--- OUTSIDE RECORDS SUMMARY | ~2020-01-13 | XMS | Encounter Summary ---
Demographics + + + | Address | [address] | | | [place] [address] | + + + | Home Phone | | + + + | Preferred Language | Unknown | + + + | Marital Status | Single | + + + | Buddhist Affiliation | 1013 | + + + | Race | Unknown | + + + | Ethnic Group | Unknown | + + + Author + + + | Author | [facility] | | | and [place] | + + + | Organization | [facility] | | | and [...] Team Providers + +------+ + | Care Pit Recorder Name | Role | Phone | + +------+ + PCP | Unavailable | + +------+ + Encounter Details +--------+ + + + + | Date | Type | Department | Care Team | Description | +--------+ + + + + | 10/03/ | Hospital | [facility] | Joe Lauren | | | 2008 - | Encounter | CONVERSION DEP [address] | [place] [phone] | | | | | LEOLA ROSS | (Fax) | | | 10/09/ | | [place] | | | | 2008 | | [address] | | | | | | [phone] | | | +--------+ + + + [...]
--- OUTSIDE RECORDS SUMMARY | ~2020-01-13 | XMS | Encounter Summary ---
Demographics + + + | Address | [address] | | | [place] [address] | + + + | Home Phone | | + + + | Preferred Language | Unknown | + + + | Marital Status | Single | + + + | Roman Catholic Affiliation | 1013 | + + + | Race | Unknown | + + + | Ethnic Group | Unknown | + + + Author + + + | Author | [facility] | | | and [place] | + + + | Organization | [facility] | | | and [place] [...] Team Providers + +------+ + | Care Diesel Fitter Mechanic Name | Role | Phone | + +------+ + | Isabela Gage DO | PCP | | + +------+ + Reason for Visit +--------+ + | Reason | Comments | +--------+ + | Spasms | | +--------+ + Encounter Details +--------+ + + + + | Date | Type | Department | Care Team | Description | +--------+ + + + + | 01/03/ | Emergency | [facility] | [facility], | Drug-induced | | 2019 | | [facility] | MD [address] | delirium (Primary | | | | CENTER [address] | [facility] [place] | Dx); Methamphetamine | | | | [place], [place] | [place] [address] | abuse (HCC); | | | | [address] | [phone] | Methamphetamine | | | | [phone] | | addiction (HCC) | +--------+ + + + + Social [...] + + + | Blood Pressure | 104/60 | 01/04/2020 7:30 PM | | | | | PDT | | + + + + + | Pulse | 109 | 01/04/2020 7:30 PM | | | | | PDT | | + + + + + | Temperature | 36.8 C (98.3 F) | 01/04/2020 4:46 PM | | | | | PDT | | + + + + + | Respiratory Rate | 18 | 01/04/2020 7:30 PM | | | | | PDT | | + + + + + | Oxygen Saturation | 99% | 01/04/2020 7:30 PM | | | | | PDT | | + + + + + | Inhaled Oxygen | - | - | | | Concentration | | | | + + + + + | Weight | - | - | | + + + + + | Height | - | - | | + + + + + | Body Mass Index | - | - | | + + + + + documented in this encounter Discharge Instructions Instructions Saleem Toure MD - 01/04/2020You need to stop using street drugs or you w ill Follow-up with comprehensive mental health AttachmentsThe following attachments cannot be sent through Care Everywhere.Drug Abuse and Addiction, Treating (Maltese)documented in this encounter Medications at Time of [...] mg day twice | | 0 | 01/06/20 | | | (GLUCOPHAGE-XR) 500 | daily [...] INFORMATION | MARGAUX | Routin | | 01/04/2020 4:20 PM | | EXCHANGE | | e | | PDT | + +------+--------+ + + documented as of this encounter Procedures + +--------+ + + + | Procedure Name | Priori | Date/Time | Associated Diagnosis | Comments | | | ty | | | | + +--------+ + + + | URINALYSIS WITH | STAT | 01/04/2020 | | Results for this | | MICROSCOPIC WITH | | 6:05 PM | | procedure are in the | | CULTURE IF INDICATED | | PDT | | results section. | + +--------+ + + + | DRUGS OF ABUSE, | STAT | 01/04/2020 | | Results for this | | SCREEN, URINE | | 6:05 PM | | procedure are in the | | | | PDT | | results section. | + +--------+ + + + | POC GLUCOSE | Routin | 01/04/2020 | | Results for this | | | e | 5:34 PM | | procedure are in the | | | | PDT | | results section. | + +--------+ + + + | ED INFORMATION | Routin | 01/04/2020 | | | | EXCHANGE | e | 4:20 PM | | | | | | PDT | | | + +--------+ + + + +---+--------+ | | | | | Proced | | | ure | | | Note - | | | Sky, | | | Lab In | | | | | | Hlseve | | | n - | | | | | | 2019 | | | 4:21 | | | PM PDT | | [...] | | | 0 | | | 16:19? | | | STROE, | | | | | | NATALY | | | | | | J?MRN: | | | | | | [id number] | | | [id number] | | | riteri | | | [...] | | 1 0 | | | [facility] | | | | | [facility] [...] | | | Center | | | 15 0 | | | [facility] | | | y | | | Hospit | | | al 1 0 | | | Total | | | 23 0 | | | Note: | | [...] | | out | | | of 23 | | | in the | | [...] | | | int | | | May 2, | | | 2020 | | | Provid | | | ence | | | [facility] | | | [place] [facility] | | [place] | | | [place] | | | Emerge | | | ncy | | | May 1, | | | 2020 | | | Provid | | | ence | | | [facility] | | | [place] [facility] | | | [place] | | | [place] | | | Emerge | | | ncy | | | arm | | | swelli | | | ng, | | | leg | | | pain, | | | numbne | | | ss, | | | sinus | | | pressu | | | re | | | Sinusi | | | tis | | | Foot | | | Numbne | | | ss | | | Nasal | | | conges | | | tion | | | Pain | | | in | | | left | | | arm | | | Other | | | | | | psycho | | | active | | | | | | substa | | | nce | | | abuse, | | | | | | uncomp | | | licate | | | d | | | Pain | | | in | | | right | | | arm | | | May 1, | | | 2020 | | | [facility] | | | [place] | | | [place] | | | Emerge | | | ncy | | | Chief | | | Compla | | | int: | | | DIFFIC | | | ULTY | | | BREATH | | | ING | | | Apr | | | [...] | | | icuted | | | | | | Should | | | er | | | Pain | | | | | | Muscle | | | Pain | | | | | | Other | | | psycho | | | active | | | | | | substa | | | nce | | | abuse, | | | | | | uncomp | | | licate | | | d Apr | | | 26, | | [...] | | | 2020 | | | [facility] | | | | | | [facility] [...] | | | 2020 | | | [facility] | | | | | | [facility] [...] | | | otify/ | | | [id number] | | | [id number] | | | [id number] | | | -[id number] | | | [id number] | | | [id number] | | | | | | PLEASE [...] | +---+--------+ documented in this encounter Results Urinalysis with Microscopic with Culture if Indicated (01/04/2020 6:05 PM PDT) + + + + + + | Component | Value | Ref Range | Performed | Pathologist | | | | | At | Signature | + + + + + + | Color, | Yellow | Light Yellow, | [facility] | | | Urine | | Yellow, Straw | [facility] | | | | | | [facility]ICAL | | | | | | CENTER - | | | | | | LABORATORY | | + + + + + + | Clarity | Cloudy (A) | Clear | [facility] | | | | | | [facility] | | | | [facility] | [facility] | | | | | | CENTER - | | | | | | LABORATORY | | + + + + + + | pH, Urine | 8.0 | 5.0 - 8.0 | [facility] | | | | | | [facility] | | [facility] | | | MEDICAL | | | | | | CENTER - | | | | | | LABORATORY | | + + + + + + | Specific | 1.018 | 1.001 - 1.030 | [facility] | | | Jarratt, | | | [facility] | | | Urine | | | MEDICAL | | | | | | CENTER - | | | | | | LABORATORY | | + + + + + + | Protein, | Negative | Negative | [facility] | | | Urine | | | [facility] | | | | | | MEDICAL | | | | | | CENTER - | | | | | | LABORATORY | | + + + + + + | Blood, | Negative | Negative | [facility] | | | Urine | | | [facility] | | | | | | MEDICAL | | | | | | CENTER - | | | | | | LABORATORY | | + + + + + + | Glucose, | Negative | Negative | [facility] | | | Urine | | | [facility] | | | | | | MEDICAL | | | | | | CENTER - | | | | | | LABORATORY | | + + + + + + | Ketones, | Negative | Negative | [facility] | | | Urine | | | [facility] | | | | | | MEDICAL | | | | | | CENTER - | | | | | | LABORATORY | | + + + + + + | Bilirubin, | Negative | Negative | [facility] | | | Urine | | | [facility] | | | | | | MEDICAL | | | | | | CENTER - | | | | | | LABORATORY | | + + + + + + | Nitrite, | Negative | Negative | [facility] | | | Urine | | | [facility] | | | | | | MEDICAL | | | | | | CENTER - | | | | | | LABORATORY | | + + + + + + | Leukocyte | Negative | Negative | [facility] | | | Esterase, | | | [facility] | | | Urine | | | MEDICAL | | | | | | CENTER - | | | | | | LABORATORY | | + + + + + + | Urobilinoge | Negative | 0.2 mg/dL, 1.0 | [facility] | | | n, Urine | | mg/dL, Negative | [facility] | | | | | | MEDICAL | | | | | | CENTER - | | | | | | LABORATORY | | + + + + + + | White Blood | 0-2 | 0 - 2 /HPF | [facility] | | | Cells, | | | [facility] | | | Urine | | | MEDICAL | | | | | | CENTER - | | | | | | LABORATORY | | + + + + + + | Red Blood | 2-5 (A) | 0 - 2 /HPF | [facility] | | | Cells, | | | [facility] | | | Urine | | | MEDICAL | | | | | | CENTER - | | | | | | LABORATORY | | + + + + + + | Squamous | 50-100 (A) | 0 - 2 /LPF | [facility] | | | Epithelial | | | [facility] | | | Cells, | | | MEDICAL | | | Urine | | | CENTER - | | | | | | LABORATORY | | + + + + + + | Bacteria, | 1+ (A) | Negative /HPF | [facility] | | | Urine | | | [facility] | | | | | | MEDICAL | | | | | | CENTER - | | | | | | LABORATORY | | + + + + + + | Mucus, | Present (A) | Negative /LPF | [facility] | | | Urine | | | [facility] | | | | | | MEDICAL | | | | | | CENTER - | | | | | | LABORATORY | | + + + + + + | Amorphous | Few (A) | None Seen /HPF | [facility] | | | Crystals, | | | [facility] | | | Urine | | | MEDICAL | | | | | | CENTER - | | | | | | LABORATORY | | + + + + + + | Urine | Urine Culture Not | | [facility] | | | Comment | Indicated | | [facility] | | | [...] [address] | [place] | [phone] | | [facility] | | [address] | | | - LABORATORY | | | | + + + + + Drugs of Abuse, Screen, Urine (01/04/2020 6:05 PM PDT) + + + + + [...] + + + + | Cannabinoid | Positive (A) | Negative | [facility] [...] | + + + + + | [facility] | [address] | [place] | [phone] | | [facility] | | [address] | | | - LABORATORY | | | | + + + + + POC Glucose (01/04/2020 5:34 PM PDT) + +-------+ + + + | Component | Value | Ref Range | Performed | Pathologist | | | | | At | Signature | + +-------+ + + + | Glucose, | 79 | 70 - 109 mg/dL | [facility] | | | POC | | | 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
--- OUTSIDE RECORDS SUMMARY | ~2020-01-13 | XMS | Encounter Summary ---
Demographics + + + | Address | [address] | | | [place] [address] | + + + | Home Phone [...] + + + | Author | [facility] | | | and [place] | + + + | Organization | [facility] | | | and [...] Team Providers + +------+ + | Care Grand Jury Deputy Sheriff Name | Role | Phone | + +------+ + | No, Physician | PCP | Unavailable | + +------+ + Reason for Visit + + + | Reason | Comments | + + + | Contractions | | + + + | Decreased | | | Movement | | + + + | Non-stress Test | | + + + Auth/Cert +--------+--------+ + + + + | [...] + + + + | 10/26/ | Hospital | [facility] | Edi Sprague | | | 2016 | Encounter | [facility] LAB[facility] | MD [address] [facility] | | | | | DELIV[address] | [place] [address] | | | | | [place], | [address] | | | | | [place] [address] | | | | | | [phone] | | | +--------+ + + + [...] + + + | Blood Pressure | 91/54 | 10/26/2015 11:23 AM | | | | | PST | | + + + + + | Pulse | 102 | 10/26/2015 11:23 AM | | | | | PST | | + + + + + | Temperature | 36.3 C (97.3 F) | 10/26/2015 11:23 AM | | | | | PST | | + + + + + | Respiratory Rate | 20 | 10/26/2015 11:23 AM | | | | | PST | | + + + + + | Oxygen Saturation | - | - | | + + + + + | Inhaled Oxygen | - | - | | | Concentration | | | | + + + + + | Weight | 75.8 kg (167 lb) | 10/26/2015 11:23 AM | | | | | PST | | + + + + + | Height | 152.4 cm (5') | 10/26/2015 11:23 AM | | | | | PST | | + + + + + | Body Mass Index | 32.62 | 10/26/2015 11:23 AM | | | | | PST | | + + + + + documented in this encounter Discharge Instructions Instructions Nicci Pederson RN - 10/26/2015Formatting of this note might be different f rom the original. Home Undelivered Discharge Instructions After Discharge Orders: Keep appointment tomorrow with Dr. Sprague Call physician or certified nurse midwife's office for instructions if symptoms worsen.. Discharge Medications UNREVIEWED - COMPLETE MED REC AND REFRESH THIS SMARTLINK BEFORE SIGNING Details calcium carbonate 500 mg chewable tablet Take 2 tablets by mouth Daily. aka: TUMS 27-0.8 mg multivitamin tablet Take 1 tablet by mouth Daily. promethazine 12.5 MG tablet Take 12.5 mg by mouth every 6 hours as needed for Nausea. aka: PHENERGAN Diet: normal diet as tolerated Rest: Other instructions: Do kick counts once a day on your baby. Choose the time of day your bab y is most active. Get in a comfortable lying or sitting position and time how long it takes to feel 10 kicks, twists, turns, swishes, or rolls. Call your physician or certified nurse midwife if there have not been 10 kicks in 1.5 hours Call physician or certified nurse midwife, return to Labor and Delivery, call 911, or go to the nearest [facility] Room if: increased leakage or fluid, contractions more than 6 per 1 hour, decreased movement, persistent low back pain or cramping, bleeding from vaginal area or difficu lty urinating documented in this encounter Medications at Time [...] + +---------+ + + | ibuprofen | Take 1 tablet by | 30 | 1 | 10/28/19 | | | (ADVIL,MOTRIN) 600 | mouth every 8 hours | tablet | | 16 | 6 | | MG tablet | as needed for Pain | | | | | | | for up to 10 days. | | | | | [...] documented as of this encounter Progress Notes Nicci Pederson RN - 10/26/2015 12:00 PM [id number] PT here with complaints of decreased fe orquidea movement and contractions since 629. She reports being checked last week and was 1 cm, 70%. Her cervix has not changed with today's SVE, still 1 cm & 70%. Pt reports uterine c ontractions, but is talking through them and they palpate mild. [place] is not tracing a uterin e contraction pattern. Category 1 tracing noted with baseline of 130, mod variability and ac cels. Very frequent movement noted. Dr. Sprague called with report of assessment. DC orders obtained. DC inst given to pt. PT denies questions. DC'd to home with pts mother for support. documented in this encounter Plan of Treatment Not on filedocumented as of this encounter Visit Diagnoses Not on filedocumented in this encounter"
--- OUTSIDE RECORDS SUMMARY | ~2020-01-13 | XMS | Encounter Summary ---
Demographics + + + | Address | [address] | | | [place] [address] | + + + | Home Phone | | + + + | Preferred Language | Unknown | + + + | Marital Status | Single | + + + | Shinto Affiliation | 1013 | + + + | Race | Unknown | + + + | Ethnic Group | Unknown | + + + Author + + + | Author | [facility] | | | and [place] | + + + | Organization | [facility] | [...] Team Providers + +------+ + | Care Automatic Log Cut Off Sawyer Name | Role | Phone | + [...] | | 2019 | Outreach | [facility] | [address] | Screening | | | | [address] | [place] | | | | | [place] | [address] | | | | | [address] | | | | | | [phone] | | | +--------+ + + + [...]
--- OUTSIDE RECORDS SUMMARY | ~2020-01-13 | XMS | Encounter Summary ---
Demographics + + + | Address | [address] | | | [place] [address] | + + + | Home Phone | | + + + | Preferred Language | Unknown | + + + | Marital Status | Single | + + + | Sabianist Affiliation | 1013 | + + + | Race | Unknown | + + + | Ethnic Group | Unknown | + + + Author + + + | Author | [facility] | | | and [place] | + + + | Organization | [facility] | | | [...] Team Providers + +------+ + | Care Director Mission Name | Role | Phone | + +------+ + | Mohinder Gage DO | PCP | | + +------+ + Reason for Visit + + + | Reason | Comments | + + + | New Patient | foreign body in skin | + + + Evaluate & Treat (Routine) + + + + + + + | Status | Reason | Specialty | Diagnoses / | Referred By | Referred To | | | | | Procedures | Contact | Contact | + + + + + + + | Authorized | Specialty | Surgery / | Diagnoses | Vickey, | Santy, | | | Services | General | Foreign | Jim | MD Vivien | | | Required | Surgery | body in skin | MD Deuce | [address] | | | | | | [address] | [place], | | | | | | [place] | [place] [address] | | | | | | [place], [place] | Phone: | | | | | | [address] | [phone] | | | | | | Phone: | Fax: | | | | | | [phone] | [phone] | | | | | | Fax: | | | | | | | [phone] | | + + + + + + + Encounter Details +--------+---------+ + + + | Date | Type | Department | Care Team | Description | +--------+---------+ + + + | 12/09/ | Office | [facility] | Vivien Madera MD | Foreign body in skin | | 2020 | Visit | SURGERY [address] | [address] [facility] | (Primary Dx) | | | | [facility] [place] | [place] [address] | | | | | [address] | [phone] | | | | | [phone] | | | +--------+---------+ + + + [...] + + + | Blood Pressure | 120/74 | 12/10/2019 11:14 AM | | | | | PDT | | + + + + + | Pulse | 105 | 12/10/2019 11:14 AM | | | | | PDT | | + + + + + | Temperature | 36.3 C (97.3 F) | 12/10/2019 11:14 AM | | | | | PDT | | + + + + + | Respiratory Rate | 16 | 12/10/2019 11:14 AM | | | | | PDT | | + + + + + | Oxygen Saturation | 99% | 12/10/2019 11:14 AM | | | | | PDT | | + + + + + | Inhaled Oxygen | - | - | | | Concentration | | | | + + + + + | Weight | 48.5 kg (107 lb) | 12/10/2019 11:14 AM | | | | | PDT | | + + + + + | Height | 152.4 cm (5') | 12/10/2019 11:14 AM | | | | | PDT | | + + + + + | Body Mass Index | 20.9 | 12/10/2019 11:14 AM | | | | | PDT | | + + + + + documented in this encounter Progress Notes Vivien Madera MD - 12/10/2019 11:00 AM PDT Consult Note Referring Provider: Jim Hurd* HISTORY OF PRESENT ILLNESS Nataly Martinez is a 39 y.o. female patient of Mohinder Gage DO here today for evalua tion of foreign body in skin Entire visit was performed with sponge fisherman: VESTA Waldrop Physician notes: Nataly is here for evaluation of left antecubital fossa retained foreign body. On 0, the patient presented to the emergency department complains of a needle stuck in her left arm. States the needle broke off near the left antecubital fossa while being used for illi cit IV drugs. Patient reports that she attempted to remove the needle herself first. There was an attempt made in the emergency department on 11/15 to remove the needle after it was n oted on x-ray, but no foreign body was able to be retrieved during the procedure. The patie nt then presented back to emergency department on 11/19, 11/30, 12/05, and 12/07 with complaints o f agitation and retained left antecubital fossa foreign body. States that she feels like so mething is wrong with her whole body. She denies IV drug use for at least the last 3 days. Her initial left elbow x-ray from 11/15 did demonstrate a linear metallic foreign body proje cting within the soft tissues in the distal anterior arm, measuring 6 mm in length. A follo w-up x-ray was performed on 12/08/2027, which did not show any significant soft tissue abnorma lities, fractures, or retained foreign bodies. Last set of labs were from 12/08/2019 with a W BC 12, hemoglobin 13, and platelets 376. MADALYN Score: 0 Opioid Risk Tool (ORT): Total Score 24 (12/10/19 1114) Interpretation of Total Score: 0 to 3 = Low risk: 6% chance of developing problematic behav iors, 4 to 7 = Moderate risk: 28% chance of developing problematic behaviors, 8 or more = Hi gh risk: 90% chance of developing problematic behaviors. Imaging reviewed by myself: LEFT ELBOW TWO VIEWS CLINICAL INFORMATION: Left arm injury, Foreign body. COMPARISON: None FINDINGS: Linear metallic foreign body seen projecting at the soft tissues in the distal anterior arm, measuring 6 mm in length. IMPRESSION: Linear metallic foreign body seen projecting at the soft tissues in the distal anterior arm, measuring 6 mm in length. Signed by: Miguel Antunez Amit Sign Date/Time: 11/16/2019 1:39 PM LEFT HUMERUS CLINICAL INFORMATION: Spasms. COMPARISON: None FINDINGS: No fracture or dislocation. No significant arthropathy or soft tissue abnormalities. Normal bone mineralization. IMPRESSION: Negative humerus. Signed by: Miguel Bartlett James Sign Date/Time: 12/08/2019 9:55 PM Mohinder Gage DO's notes were reviewed in clinic today as well as emergency department visit notes from the above-mentioned dates. PAST MEDICAL HISTORY Past Medical History: Diagnosis Date Abrasion of left ankle Allergic rhinitis due to allergen Amenorrhea Anxiety with depression Benzodiazepine dependence, continuous (HCC) Cervical radicular pain Cervicalgia Diabetes mellitus screening Gastro-esophageal reflux Generalized pain Gestational diabetes Headache Insect bite, multiple Joint pain Left knee injury Left knee pain Migraine headache PCOS (polycystic ovarian syndrome) Pelvic pain Peripheral neuropathy Post depression RUQ pain Spasm of muscle Substance abuse (HCC) Thoracic outlet syndrome associated with cervical rib Tobacco use Past Surgical History: Procedure Laterality Date ABDOMINAL EXPLORATION SURGERY 1999 ABDOMINAL EXPLORATION SURGERY 2007 CHOLECYSTECTOMY DILATION AND CURETTAGE OF UTERUS HERNIA REPAIR TUBAL LIGATION Allergies: Allergies Allergen Reactions Ondansetron Anxiety "Extreme anxiety" AKA "Zofran" Bactrim [Sulfamethoxazole-Trimethoprim] Itching Bupropion Anxiety and Other (See Comments) Anger AKA "Wellbutrin" Codeine Other (See Comments) No pain relief, "makes me loopy" Tramadol Other (See Comments) No pain relief, "makes me loopy" Medications: Outpatient Encounter Medications as of 12/10/2019 Medication Sig Dispense Refill albuterol 90 mcg/puff inhaler Inhale 2 puffs into the lungs every 6 hours as needed for Wheezing. 1 Inhaler 0 baclofen (LIORESAL) 20 mg tablet Take 1 tablet by mouth 3 times daily. Prn 60 tablet 0 cetirizine (ZYRTEC) 10 mg tablet Take 1 tablet by mouth Daily. 1 clonazePAM (KLONOPIN) 2 MG tablet take 1/2 tablet by mouth daily if needed for SEVERE A NXIETY (MUST LAST 30 DAYS) desvenlafaxine (PRISTIQ) 25 mg ER tablet take 1 tablet by mouth daily fluticasone (FLONASE) 50 mcg/nasal spray 1 spray by Nasal route Daily. 16 g 2 gabapentin (NEURONTIN) 800 MG tablet take 1 tablet by mouth three times a day AND AN AD DITIONAL 1 1/2 TABLETS AT BEDTIME 90 tablet 2 hydrOXYzine (VISTARIL) 50 MG capsule Take 1 capsule by mouth 3 times daily as needed fo r Anxiety. 21 capsule 0 LORazepam (ATIVAN) 0.5 mg tablet take 1/2 tablet by mouth OTHER NEEDED FOR ANXIETY 0 metFORMIN (GLUCOPHAGE-XR) 500 mg 24 hr tablet 1000 mg day twice daily 0 progesterone (PROMETRIUM) 100 mg capsule Take 1 capsule by mouth Daily. For 10 days eac h month prior to menses 0 sertraline (ZOLOFT) 100 mg tablet Take 1 tablet by mouth Daily. 90 tablet 0 spironolactone (ALDACTONE) 50 mg tablet Take 1 tablet by mouth Daily. 1 SUMAtriptan (IMITREX) 100 mg tablet Take 100 mg by mouth as needed. traZODone (DESYREL) 100 mg tablet take 1-2 tablets by mouth at bedtime No facility-administered encounter medications on file as of 12/10/2019. Family History Problem Relation Age of Onset [...] COPD Paternal Grandmother Cancer Paternal Grandfather No known problems Daughter Asthma Son Learning disability Son Social History Socioeconomic History Marital status: Single Spouse name: Not on file Number of children: Not on file Years of education: Not on file Highest education level: Not on file Tobacco Use Smoking status: Current Every Day Smoker Packs/day: 0.50 Years: 20.00 Pack years: 10.00 Types: Cigarettes Smokeless tobacco: Never Used Substance and Sexual Activity Alcohol use: Yes Alcohol/week: 1.0 standard drinks Types: 1 Cans of beer per week Drug use: Yes Types: Methamphetamines Comment: last used monday. REVIEW OF SYSTEMS: Unmarked boxes mean negative response. General: [x]Weight loss/gain (over 10 lbs) []Fever/chills []Night sweats Hematologic: []Bleeding/brusing tendencies []Blood transfusion []Anemia Heent: []Vision loss []Hearing loss []Sinus problems/nose bleeds []Hoarseness Respiratory: []Wheezing []Shortness of breath []Cough []Spitting up blood []On oxygen []Use CPAP machine Cardiac: [x]Chest pain []Palpitations/heart racing []Swelling of ankles/hands []Unusual shortness of breath []Difficulty sleeping flat Gastrointestinal: []Nausea/vomiting []Difficulty swallowing []Heartburn []Loss of appetite []Abdominal pain []Stomach Ulcers []Diarrhea []Constipation []Carlos k or bloody stools Vascular: []Strokes/TIAs []Fainting []Difficulty with speech [x]Leg cramps []Pain in feet/legs at rest []Foot ulcers/s ores []Varicose veins []Phlebitis/blood clots Musculoskeletal: []Joint stiffness/swelling []Joint pain []Back pain []Arthritis []Gout Urologic: []Blood in urine []Frequent urination at night []Burning/painful urination []Kidney stones []Difficult urination []Sexual difficulties Neuro/Psychiatric: [x]Headaches []Seizures [x]Depression [x]Anxiety attacks [x]Memory loss or confusion PHYSICAL EXAM BP 120/74 | Pulse 105 | Temp 36.3 C (97.3 F) (Temporal) | Resp 16 | Ht 1.524 m (5') | Wt 48.5 kg (107 lb) | LMP 11/13/2019 (Approximate) | SpO2 99% | BMI 20.90 kg/m Gen Twila - cooperative and no distress Head - normocephalic, without obvious abnormality, atraumatic Eyes - PERRL, conjunctiva/corneas clear, EOM's intact both eyes, sclera non-icteric ENT - mucous membranes moist Neck - trachea midline Lungs - no respiratory distress, no wheezing Heart - tachycardic Abdomen - soft and nondistended Extremities - no tenderness, no deformities Integument - bilateral upper extremities with multiple scars, track agarwal, but no erythe ma or visible purulent drainage Neurologic - alert and oriented, CN II-XII grossly intact. Psychiatric - speech and behavior tangential, irritated Assessment /Plan Nataly was seen today for new patient. Diagnoses and all orders for this visit: Foreign body in skin Discussed with the patient, that the most recent left upper extremity x-ray, did not demons trate any retained foreign body so there is no indication to explore the antecubital fossa a bushra for retained needlepoint. Patient was very upset with this and was sure the needle poin t had traveled somewhere else within her body. Explained that this is unlikely, and it woul d not be warranted to x-ray her entire body. This made her very upset and she then got up a nd left my office. Vivien Madera MD CC PCP: Mohinder Gage DO Portions of this chart may have been created with [employer] voice recognition software. Occasi onal wrong-word or sound-alike substitutions may have occurred due to the inherent leroy itations of voice recognition software. Please read the chart carefully and recognize, using context, where these substitutions have occurred. documented in this encounter Plan of Treatment + + +--------+ + + | Name | Type | Priori | Associated Diagnoses | Order Schedule | | | | ty | | | + + +--------+ + + | General Surgery | Outpatient | Routin | Foreign body in | Ordered: 11/20/2019 | | [facility] - | Referral | e | skin | | | Akash//Santy/Carlitos | | | | | | jenna | | | | | + + +--------+ + + documented as of this encounter Visit Diagnoses + + | Diagnosis | + + | Foreign body in skin - Primary Other, multiple, and unspecified sites, superficial | | foreign body (splinter), without major open wound and without mention of infection | + + documented in this encounter
--- OUTSIDE RECORDS SUMMARY | ~2020-01-13 | XMS | Clinical Summary ---
Demographics + + + | Address | [address] | | | [place] [address] | + + + | Home Phone | | + + + | Preferred Language | Unknown | + + + | Marital Status | Single | + + + | Uatsdin Affiliation | CHR | + + + | Race | White | + + + | Ethnic Group | Not or | + + + Author + + + | Author | [facility] | + + + | Organization | [...] Team Providers + +------+ + | Care Leadership Development Instructor Name | Role | Phone | + +------+ + | No Pcp Per Patient | PCP | Unavailable | + +------+ + Source Comments HARSH is fully live on both [facility] and [facility] & [facility] Allergies + + + + + + [...] | | 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 | | | Please contact [facility] for any mental health concerns: Amelia | | | [phone] [place] [phone] Crisis Line [phone] These | | | are guidelines and [...] E.D. Visit Count (12 mo.) Facility Visits [facility] 1 | | | [facility] 2 [facility] | | | Center 3 [facility] 11 Total 17 Note: | | | Visits indicate total known visits. Recent Emergency Department | | | Visit Summary Showing 10 most recent visits out of 18 in the past 12 | | | months Date Facility City State Type Diagnoses or Chief Complaint | | | Dec 11, 2019 [facility] [place] Emergency | | | 10,800. Medication request Dec 11, 2019 [facility] and | | | [facility] [place] Emergency 10,800. Infection | | | 10,800. L Arm/Headache 18,400. Personal history of other | | | diseases of the nervous system and 18,400. Cutaneous abscess, | | | unspecified 18,400. Other stimulant abuse, uncomplicated | | | 18,400. Paresthesia of skin Dec 08, 2019 [facility] | | | [place] Emergency Spasms Other stimulant abuse, | | | uncomplicated Other problems related to lifestyle Apr 5, | | | 2019 [facility]. [place] Emergency | | | Hallucinations Other stimulant abuse, uncomplicated Apr | | | 2019 [facility]. [place] Emergency Medical | | | Complacations from alc and drug abuse Spasms Other | | | stimulant abuse, uncomplicated Dec 01, 2019 [facility] | | | [facility]. [place] Emergency CP,sob Pain Tachycardia | | | Restlessness and agitation Other stimulant use, unspecified | | | with intoxication, unspecifi Panic disorder [episodic paroxysmal | | | anxiety] Nov 20, 2019 [facility] | | | Emergency needle stuck in arm Foreign Body in Skin | | | Other injury of unspecified body region, initial encounter Mar | | | 2019 [facility] Emergency Pruritis | | | Adverse effect of unspecified drugs, medicaments and biologic | | | Pruritus, unspecified Urticaria, unspecified Nov 16, 2019 | | | [facility] Emergency Arm Injury | | | Superficial foreign body of left upper arm, initial encounter | | | Contact with needle (sewing), initial encounter Encounter for | | | immunization Nov 15, 2019 [facility]. [place] | | | Emergency FB STUCK IN ARM Other psychoactive substance | | | use, unspecified, uncomplicated Other injury of unspecified body | | | region, initial encounter Recent Inpatient Visit Summary | | | No recorded inpatient visits. Care Team Provider Specialty Phone | | | Fax Service Dates Giancarlo Quarles -, [facility] | | | Health Worker Nov 16, 2019 - Current | | | [facility] [facility] This patient has registered at the [facility] | | | [facility] Emergency Department For more information | | | visit: | | | [email or web address] | | | [email or web address] PLEASE NOTE: 1. Any care recommendations [...] or completeness of information provided. ? 2020 [employer] | | | [employer]. - [email or web address] | | + + + + + [...] on | | fileED Care Guidelines from [facility] [place] Updated: 12/11/19 10:08 AM Care | | Recommendation:Receiving mental health services through [facility]. Please contact | | [facility] for any mental health concerns:Carlo [phone] | | [phone] Line [phone] are guidelines and the provider should | [...] 0 E.D. Visit Count (12 mo.)Facility Visits [facility] 1 [facility] | | [facility] 2 [facility] 3 [facility] | | Center 11 Total 17 Note: Visits indicate total known visits. Recent Emergency | | Department Visit SummaryShowing 10 most recent visits out of 18 in the past 12 | | monthsDate Facility [facility] [place] Type Diagnoses or Chief Complaint Dec 11, 2019 [place] | | [facility] [place] Emergency 10,800. Medication request Dec 10 | | 2019 [facility] [place] Emergency 10,800. Infection | | 10,800. L Arm/Headache 18,400. Personal history of other diseases of the nervous | | system and 18,400. Cutaneous abscess, unspecified 18,400. Other stimulant abuse, | | uncomplicated 18,400. Paresthesia of skin Dec 08, 2019 [facility] [place] | | Emergency Spasms Other stimulant abuse, uncomplicated Other problems related | | to lifestyle Dec 08, 2019 [facility] [place] Emergency Hallucinations | | Other stimulant abuse, uncomplicated Dec 06, 2019 [facility] [place] | | Emergency Medical Complacations from alc and drug abuse Spasms Other stimulant | | abuse, uncomplicated Dec 01, 2019 [facility]. [place] Emergency | | CP,sob Pain Tachycardia Restlessness and agitation Other stimulant use, | | unspecified with intoxication, unspecifi Panic disorder [episodic paroxysmal anxiety] | | Nov 20, 2019 [facility]. [place] Emergency needle stuck in arm | | Foreign Body in Skin Other injury of unspecified body region, initial encounter Mar | | 2019 [facility]. [place] Emergency Pruritis Adverse effect of | | unspecified drugs, medicaments and biologic Pruritus, unspecified Urticaria, | | unspecified Nov 16, 2019 [facility] Emergency Arm Injury | | Superficial foreign [...] Phone Fax Service Dates Giancarlo Quarles -, [facility] | | Worker Nov 16, 2019 - Current [facility] PortalThis patient has | | registered at the [facility] and [facility] Emergency Department For more | | information visit: | | [email or web address] PLEASE | | NOTE: 1. Any care [...] to the | | limitations of applicable [employer] Policies. 3. You should consult directly with | | the organization that provided a care guideline or other clinical history with any | | questions about additional information or accuracy or completeness of information | | provided.? 2020 [employer]. - [email or web address] | |[facility] 3 | |[facility] 11 | |Total 17 | |Note: Visits indicate total known visits. | | | |Recent Emergency Department Visit Summary | |Showing 10 most recent visits out of 18 in the past 12 months | |Date Facility City State Type Diagnoses or Chief Complaint | |Dec 11, 2019 [facility] [place] | | 10,800. Medication request | | | |Dec 11, 2019 [facility] [place] Emergency | | 10,800. Infection | | 10,800. L Arm/Headache | | 18,400. Personal history of other diseases of the nervous system and | | 18,400. Cutaneous abscess, unspecified | | 18,400. Other stimulant abuse, uncomplicated | | 18,400. Paresthesia of skin | | | |Dec 08, 2019 [facility]. [place] Emergency | | Spasms | | Other stimulant abuse, uncomplicated | | Other problems related to lifestyle | | | |Dec 08, 2019 [facility]. [place] Emergency | | Hallucinations | | Other stimulant abuse, uncomplicated | | | |Dec 06, 2019 [facility]. [place] Emergency | | Medical Complacations from alc and drug abuse | | Spasms | | Other stimulant abuse, uncomplicated | | | |Dec 01, 2019 [facility]. [place] Emergency | | CP,sob | | Pain | | Tachycardia | | Restlessness and agitation | | Other stimulant use, unspecified with intoxication, unspecifi | | Panic disorder [episodic paroxysmal anxiety] | | | |Nov 20, 2019 [facility]. [place] Emergency | | needle stuck in arm | | Foreign Body in Skin | | Other injury of unspecified body region, initial encounter | | | |Nov 16, 2019 [facility] Emergency | | Pruritis | | Adverse effect of unspecified drugs, medicaments and biologic | | Pruritus, unspecified | | Urticaria, unspecified | | | |Nov 16, 2019 [facility] Emergency | | Arm Injury | | Superficial foreign body of left upper arm, initial encounter | | Contact with needle (sewing), initial encounter | | Encounter for immunization | | | |Nov 15, 2019 [facility] [place]. [place] Emergency | | FB STUCK IN ARM | | Other psychoactive substance use, unspecified, uncomplicated | | Other injury of unspecified body region, initial encounter | | | | | | | |Recent Inpatient Visit Summary | |No recorded inpatient visits. | | | |Care Team | |Provider Specialty Phone Fax Service Dates | |Giancarlo Quarles -, [facility] Community Health Worker Nov 16, 2019 - Mickie donnelly | | | |[employer] Portal | |This patient has registered at the [facility] and [facility] Emergency Departmen t | |For more information visit: [email or web address] | |PLEASE NOTE: | | 1. Any care recommendations and other clinical information are provided as guidelines or for historical purposes only, and providers should exercise their own clinical judgment whe n providing care. | | 2. You may only use this information for purposes of treatment, payment or health care o perations activities, and subject to the limitations of applicable [employer] Policies. | | 3. You should consult directly with the organization that provided a care guideline or o ther clinical history with any questions about additional information or accuracy or complet eness of information provided. | | | |? 2020 [employer]. 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
--- OUTSIDE RECORDS SUMMARY | ~2020-01-13 | XMS | Encounter Summary ---
Demographics + + + | Address | [address] | | | [place] [address] | + + + | Home Phone [...] + | Organization | [facility] | | | and [place] | + [...] Team Providers + +------+ + | Care Bolt Sawyer Name | Role | Phone | + +------+ + | Katy Sanford MD | PCP | | + +------+ + Reason for Visit + + + | Reason | Comments | + + + | Annual Exam | | + + + Encounter Details +--------+ + + + + | Date | Type | Department | Care Team | Description | +--------+ + + + + | 03/12/ | Telephone | [facility] | Katy Sanford MD | Annual Exam | | 2019 | | MEDICINE [place] | [address] | | | | | [address] | [place] | | | | | [place] | [address] | | | | | [address] | | | | | | [phone] | | | +--------+ + + + [...]
--- OUTSIDE RECORDS SUMMARY | ~2020-01-13 | XMS | Encounter Summary ---
Demographics + + + | Address | [address] | | | [place] [address] | + + + | Home Phone | | + + + | Preferred Language | Unknown | + + + | Marital Status | Single | + + + | Yazdanism Affiliation | [id number] | + + + | Race | Unknown | + + + | Ethnic Group | Unknown | + + + Author + + + | Author | [facility] | | | and [place] | + + + | Organization | [facility] | | | and [place] [...] Team Providers + +------+ + | Care Lump Inspector Name | Role | Phone | + +------+ + | Katy Sanford MD | PCP | | + +------+ + Reason for Visit + + + | Reason | Comments | + + + | Lab Results | | + + + Encounter Details +--------+ + + + + | Date | Type | Department | Care Team | Description | +--------+ + + + + | 06/25/ | Telephone | [facility] | Katy Sanford MD | Lab Results | | 2018 | | MEDICINE [place] | [address] | | | | | [address] | [place] | | | | | [place], [place] | [address] | | | | | [address] | | | | | | [phone] | | | +--------+ + + + [...]
--- OUTSIDE RECORDS SUMMARY | ~2020-01-13 | XMS | Encounter Summary ---
Demographics + + + | Address | [address] | | | [place] [address] | + + + | Home Phone [...] Organization | [facility] | | | and [place] | + [...] Team Providers + +------+ + | Care Conversion Man Name | Role | Phone | + +------+ + | No, Physician | PCP | Unavailable | + +------+ + Reason for Visit + + + | Reason | Comments | + + + | Numbness | | + + + Encounter Details +--------+ + + + + | Date | Type | Department | Care Team | Description | +--------+ + + + + | 06/30/ | Emergency | [facility] | Saleem Toure, | Methamphetamine | | 2019 | | [facility] | MD [address] | intoxication (HCC) | | | | CENTER [address] | [facility] [place] | (Primary Dx); | | | | [place], [place] | [place] [address] | Methamphetamine | | | | [address] | [phone] | addiction (HCC); | | | | [phone] | | Formication; | | | | | | Paresthesias | +--------+ + + + + Social [...] + + + | Blood Pressure | 112/80 | 06/30/2019 10:29 AM | | | | | PDT | | + + + + + | Pulse | 94 | 06/30/2019 9:43 AM | | | | | PDT | | + + + + + | Temperature | 35.8 C (96.4 F) | 06/30/2019 3:59 AM | | | | | PDT | | + + + + + | Respiratory Rate | 20 | 06/30/2019 3:59 AM | | | | | PDT | | + + + + + | Oxygen Saturation | 100% | 06/30/2019 9:43 AM | | | | | PDT | | + + + + + | Inhaled Oxygen | - | - | | | Concentration | | | | + + + + + | Weight | 49.8 kg (109 lb 12.6 | 06/30/2019 4:00 AM | | | | oz) | PDT | | + + + + + | Height | - | - | | + + + + + | Body Mass Index | 21.44 | 06/07/2019 2:29 AM | | | | | PDT | | + + + + + documented in this encounter Discharge Instructions Instructions Saleem Toure MD - 06/30/2019Stop using methamphetamine and any other str eet drugs Take the medication as prescribed Follow-up with primary care AttachmentsThe following attachments cannot be sent through Care Everywhere.Methamphetamine Abuse and Addiction, Understanding (Beninese)Paraesthesias (Beninese)documented in this encou nter Medications at Time of Discharge + + [...] (HCC) - Primary | + + | 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
--- OUTSIDE RECORDS SUMMARY | ~2020-01-13 | XMS | Encounter Summary ---
Demographics + + + | Address | [address] | | | [place] [address] | + + + | Home Phone | | + + + | Preferred Language | Unknown | + + + | Marital Status | Single | + + + | Evangelical Affiliation | 1013 | + + + | Race | Unknown | + + + | Ethnic Group | Unknown | + + + Author + + + | Author | [facility] | | | and [place] | + + + | Organization | [facility] | | | and [place] [...] Team Providers + +------+ + | Care Environmental Compliance Inspector Name | Role | Phone | + +------+ + | Mohinder Gage DO | PCP | | + +------+ + Reason for Referral Evaluate & Treat (Urgent) + + + + + + + | Status | Reason | Specialty | Diagnoses / | Referred By | Referred To | | | | | Procedures | Contact | Contact | + + + + + + + | Authorized | Specialty | Obstetrics | Diagnoses | [facility], | Darcie, | | | Services | and | Hemorrhagic | Saleem Ferreira, | Edi Kumar MD | | | Required | Gynecology | ovarian | MD [address] | | | | | cyst | [address] | [place] | | | | | | [facility] | [place], [place] | | | | | | [place], | [address] | | | | | | [place] | Phone: | | | | | | [address] | [phone] | | | | | | Phone: | | | | | | | [phone] | | | | | | | Fax: | | | | | | | [phone] | | + + + + + + + Reason for Visit + + + | Reason | Comments | + + + | Flank Pain | | + + + Encounter Details +--------+ + + + + | Date | Type | Department | Care Team | Description | +--------+ + + + + | 08/22/ | Emergency | [facility] | Saleem Toure, | Hemorrhagic ovarian | | 2019 | | [facility] | MD [address] | cyst (Primary Dx) | | | | CENTER [address] | [facility] [place] | | | | | [place], [place] | [place] [address] | | | | | [address] | [phone] | | | | | [phone] | | | +--------+ + + + [...] + + + | Blood Pressure | 103/62 | 08/22/2019 11:51 PM | | | | | PST | | + + + + + | Pulse | 96 | 08/22/2019 11:51 PM | | | | | PST | | + + + + + | Temperature | 36.6 C (97.9 F) | 08/22/2019 8:45 PM | | | | | PST | | + + + + + | Respiratory Rate | 20 | 08/22/2019 11:05 PM | | | | | PST | | + + + + + | Oxygen Saturation | 95% | 08/22/2019 11:51 PM | | | | | PST | | + + + + + | Inhaled Oxygen | - | - | | | Concentration | | | | + + + + + | Weight | 52.2 kg (115 lb) | 08/22/2019 8:45 PM | | | | | PST | | + + + + + | Height | 152.4 cm (5') | 08/22/2019 8:45 PM | | | | | PST | | + + + + + | Body Mass Index | 22.46 | 08/22/2019 8:45 PM | | | | | PST | | + + + + + documented in this encounter Discharge Instructions Instructions Saleem Toure MD - 08/22/2019Rest Fluids Percocet for pain Scheduled ibuprofen for 5 days Follow up with IT CONSULTANT AttachmentsThe following attachments cannot be sent through Care Everywhere.Ovarian Cyst (E nglish)documented in this encounter Medications at Time of [...] ibuprofen | Take 1 tablet by | 20 | 0 | 08/22/20 | | | (ADVIL,MOTRIN) 600 | mouth every 6 hours | tablet | | 19 | 9 | | MG tablet | for 5 days. | | | | | + + + +---------+ + + | | Take 1-2 tablets by | 20 | 0 | 20 | | | oxyCODONE-acetaminop | mouth every 6 hours | tablet | | 19 | 9 | | hen (PERCOCET) 5-325 | as needed for Pain | | | | | | mg per tablet | for up to 3 days. | | | | | + + + +---------+ + + documented as of this encounter Plan of Treatment + + +--------+ + + | Name | Type | Priori | Associated Diagnoses | Order Schedule | | | | ty | | | + + +--------+ + + | [facility] | Outpatient | Routin | Hemorrhagic | Ordered: 08/22/2019 | | [facility] | Referral | e | ovarian cyst | | | [facility] - | | | | | | AMB Referral | | | | | + + +--------+ + + documented as of this encounter Procedures + +--------+ + + + | Procedure Name | Priori | Date/Time | Associated Diagnosis | Comments | | | ty | | | | + +--------+ + + + | CT ABDOMEN PELVIS WO | STAT | 08/22/2019 | | Results for this | | CONTRAST | | 10:17 PM | | procedure are in the | | | | PST | | results section. | + +--------+ + + + | URINALYSIS WITH | Routin | 08/22/2019 | | Results for this | | MICROSCOPIC WITH | e | 10:16 PM | | procedure are in the | | CULTURE IF INDICATED | | PST | | results section. | + +--------+ + + + | DRUGS OF ABUSE, | STAT | 08/22/2019 | | Results for this | | SCREEN, URINE | | 10:16 PM | | procedure are in the | | | | PST | | results section. | + +--------+ + + + | CBC WITH | STAT | 08/22/2019 | | Results for this | | DIFFERENTIAL | | 9:39 PM | | procedure are in the | | | | PST | | results section. | + +--------+ + + + | BASIC METABOLIC | STAT | 08/22/2019 | | Results for this | | PANEL | | 9:39 PM | | procedure are in the | | | | PST | | results section. | + +--------+ + + + documented in this encounter Results CT Abdomen Pelvis wo Contrast (08/22/2019 10:17 PM PST) + + | Specimen | + + | | + + + + + | Narrative | Performed At | + + + | CT ABDOMEN AND PELVIS WITHOUT CONTRAST CLINICAL INFORMATION: | [facility] | | Left sided abdomen pain. COMPARISON: None PROCEDURE: Axial | | | images through the abdomen and pelvis. Multiplanar reconstructions. | | | At least one of the following CT dose optimization techniques were | | | used: Automated exposure control; Adjustment of mA and/or kV | | | according to patient size; Use of iterative reconstruction technique. | | | FINDINGS: LUNG BASES: No significant pulmonary abnormality. No | | | pleural effusion or pneumothorax. ABDOMEN Solid organ evaluation | | | suboptimal without contrast. Liver and Biliary: Cholecystectomy. | | | Liver appears unremarkable. Pancreas, Spleen and Adrenals: Pancreas | | | poorly defined, probably normal. Spleen, adrenals unremarkable. | | | Kidneys: No hydronephrosis, calculi or contour deforming renal lesion. | | | ABDOMEN AND PELVIS Bowel: No small bowel or colonic dilation or | | | adjacent inflammation. Appendix is not defined. No CT evidence of | | | appendicitis. Vessels: Abdominal aorta normal in caliber. No | | | aneurysm. Veins not assessed without contrast. Lymph Nodes: No | | | adenopathy. Peritoneum and Retroperitoneum: No ascites or free air. | | | No significant retroperitoneal abnormality. PELVIS | | | Genitourinary: Distal ureters and bladder appear normal. Enlarged | | | uterus. Complex left adnexal lesion measuring 6.8 cm AP x 4.2 cm | | | transverse by 5.1 cm superoinferior dimension, with bandlike increased | | | density centrally, suggesting an element of hemorrhage. | | | Sonographic correlation is suggested. No free fluid. BODY | | | WALL Soft Tissues: No bowel or inflamed fat containing hernia, mass | | | or hemorrhage. Injection granulomas are present. Bones: No acute | | | fracture or vertebral end plate destruction. No lytic or blastic | | | lesion. IMPRESSION- Complex cystic structure perhaps | | | representing a hemorrhagic cyst with prominent focus of internal | | | hemorrhage in the left adnexal region measuring 6.8 cm. Sonographic | | | correlation is suggested. Uterine enlargement. No evidence of | | | renal calculi. A preliminary report was sent without significant | | | discrepancy. Dictated and Signed by: Minesh Alberts MD | | | Electronically signed: 08/23/2019 8:53 AM | | + + + + + | Procedure Note | + + | Sky, Rad Results In - 08/23/2019 8:56 AM PST | | CT ABDOMEN AND PELVIS WITHOUT CONTRAST | | | | CLINICAL INFORMATION: | | Left sided abdomen pain. | | | | COMPARISON: | | None | | | | PROCEDURE: | | Axial images through the abdomen and pelvis. Multiplanar | | reconstructions. | | | | At least one of the following CT dose optimization techniques were | | used: Automated exposure control; Adjustment of mA and/or kV according | | to patient size; Use of iterative reconstruction technique. | | | | FINDINGS: | | LUNG BASES: No significant pulmonary abnormality. No pleural effusion | | or pneumothorax. | | | | ABDOMEN | | Solid organ evaluation suboptimal without contrast. | | Liver and Biliary: Cholecystectomy. Liver appears unremarkable. | | Pancreas, Spleen and Adrenals: Pancreas poorly defined, probably | | normal. Spleen, adrenals unremarkable. | | Kidneys: No hydronephrosis, calculi or contour deforming renal lesion. | | | | ABDOMEN AND PELVIS | | Bowel: No small bowel or colonic dilation or adjacent inflammation. | | Appendix is not defined. No CT evidence of appendicitis. | | Vessels: Abdominal aorta normal in caliber. No aneurysm. Veins not | | assessed without contrast. | | Lymph Nodes: No adenopathy. | | Peritoneum and Retroperitoneum: No ascites or free air. No significant | | retroperitoneal abnormality. | | | | PELVIS | | Genitourinary: Distal ureters and bladder appear normal. Enlarged | | uterus. Complex left adnexal lesion measuring 6.8 cm AP x 4.2 cm | | transverse by 5.1 cm superoinferior dimension, with bandlike increased | | density centrally, suggesting an element of hemorrhage. Sonographic | | correlation is suggested. No free fluid. | | | | BODY WALL | | Soft Tissues: No bowel or inflamed fat containing hernia, mass or | | hemorrhage. Injection granulomas are present. | | Bones: No acute fracture or vertebral end plate destruction. No lytic | | or blastic lesion. | | | | | | IMPRESSION- | | | | Complex cystic structure perhaps representing a hemorrhagic cyst with prominent | | focus of internal hemorrhage in the left adnexal region measuring 6.8 cm. | | Sonographic correlation is suggested. | | | | Uterine enlargement. | | | | No evidence of renal calculi. | | | | A preliminary report was sent without significant discrepancy. | | | | Dictated and Signed by: Minesh Alberts MD | | Electronically signed: 08/23/2019 8:53 AM | + + + +---------+ + + | Performing | Address | City/State/Zipcode | Phone Number | | Organization | | | | + +---------+ + + | [facility] | | | | + +---------+ + + Drugs of Abuse, Screen, Urine (08/22/2019 10:16 PM PST) + + + + + + | Component | Value | Ref Range | Performed | Pathologist | | | | | At | Signature | + + + + + + | Amphetamine | Negative | Negative | [facility] | [...] + + + + | Opiates | Positive (A) | Negative | [facility] [...] [address] | [place] | [phone] | | [facility] | | [address] | | | - LABORATORY | | | | + + + + + Urinalysis with Microscopic with Culture if Indicated (08/22/2019 10:16 PM PST) + + + + + + | Component | Value | Ref Range | Performed | Pathologist | | | | | At | Signature | + + + + + + | Color, | Yellow | Light Yellow, | [facility] | | | Urine | | Yellow, Straw | [facility] | | | | | [...] + + + + | Specific | 1.016 | 1.001 - 1.030 | [facility] | | | [place], | | | [facility] | | [...] + + + + | Blood, | Small (A) | Negative | [facility] | | [...] | | Cells, | | | [facility] | | | Urine | | | [...] | | Crystals, | | | [facility] | | [...] [address] | [place] | [phone] | | [facility] | | [address] | | | - LABORATORY | | | | + + + + + Basic Metabolic Panel (08/22/2019 9:39 PM PST) + + + + + [...] + + | K | 3.9 | 3.4 - 5.1 | [facility] | | | | | mmol/L | [facility] | | | | | | [facility]ICAL | | | | | | CENTER - | | | | | | LABORATORY | | + + + + + + | Cl | 107 | 98 - 107 mmol/L | [facility] | | | | | | [facility] | | | | | | [facility] | | | | | | CENTER - | | | | | | LABORATORY | | + + + + + + | CO2 | 25 | 20 - 31 mmol/L | [facility] | | | | | | [facility] | | | | | | MEDICAL | | | | | | CENTER - | | | | | | LABORATORY | | + + + + + + | Anion Gap | 7 | 3 - 16 mmol/L | [facility] | | | | | | [facility] | | | | | | [facility]ICAL | | | | | | CENTER - | | | | | | LABORATORY | | + + + + + + | Glucose | 130 (H) | 60 - 106 mg/dL | [facility] | | | | | | [facility] | | [facility] | [facility] | [facility] | | | | | | CENTER - | | | | | | LABORATORY | | + + + + + + | BUN | 12 | 9 - 23 mg/dL | [facility] | | | | | | [facility] | | | | | | MEDICAL | | | | | | CENTER - | | | | | | LABORATORY | | + + + + + + | Creatinine | 0.59 | 0.55 - 1.02 | [facility] | | | | | mg/dL | [facility] | | | | | | MEDICAL | | | | | | CENTER - | | | | | | LABORATORY | | + + + + + + | eGFR if not | >60Comment: GLOMERULAR | >=60 | [facility] | | | | FILTRATION | mL/min/1.73m2 | [facility] | | | [place] | RATE,ESTIMATED | | MEDICAL | | | | mL/min/1.78l1Tanx than | | CENTER - | | [...] + + + + | Calcium | 9.3 | 8.7 - 10.4 | [facility] | | | | | mg/dL | [facility] | | | | | | MEDICAL | | | | | | CENTER - | | | | | | LABORATORY | | + + + + + + | BUN/Creatin | 20.3 | | [facility] | | | ine [...] + | [facility] | [address] | [place] | [phone] | | [facility] | | [address] | | | - LABORATORY | | | | + + + + + CBC with Differential (08/22/2019 9:39 PM PST) + + + + + + | Component | Value | Ref Range | Performed | Pathologist | | | | | At | Signature | + + + + + + | WBC | 16.2 (H) | 4.0 - 11.0 K/uL | [facility] | | | | | | [facility] | | | | | | MEDICAL | | | | | | CENTER - | | | | | | LABORATORY | | + + + + + + | RBC | 3.90 | 3.70 - 5.20 | [facility] | | | | | M/uL | [facility] | | | | | | MEDICAL | | | | | | CENTER - | | | | | | LABORATORY | | + + + + + + | Hemoglobin | 12.9 | 11.5 - 16.0 | [facility] | | | | | g/dL | [facility] | | | | | | MEDICAL | | | | | | CENTER - | | | | | | LABORATORY | | + + + + + + | Hematocrit | 37.1 | 34.0 - 47.0 % | [facility] | | | | | | [facility] | | | | | | [facility]ICAL | | | | | | CENTER - | | | | | | LABORATORY | | + + + + + + | MCV | 95.1 | 83.0 - 101.0 fL | [facility] | | | | | | [facility] | | | | | | MEDICAL | | | | | | CENTER - | | | | | | LABORATORY | | + + + + + + | MCH | 33.1 | 28.0 - 35.0 pg | [facility] | | | | | | [facility] | | | | | | MEDICAL | | | | | | CENTER - | | | | | | LABORATORY | | + + + + + + | MCHC | 34.8 | 32.0 - 36.0 | [facility] | | | | | g/dL | [facility] | | | | | | MEDICAL | | | | | | CENTER - | | | | | | LABORATORY | | + + + + + + | RDW-CV | 12.8 | <15.0 % | [facility] | | | | | | [facility] | | | | | | MEDICAL | | | | | | CENTER - | | | | | | LABORATORY | | + + + + + + | RDW-SD | 44.3 | 35.1 - 46.3 fL | [facility] | | | | | | [facility] | | | | | | MEDICAL | | | | | | CENTER - | | | | | | LABORATORY | | + + + + + + | Platelet | 340 | 140 - 440 K/uL | [facility] | | | Count | | | [facility] | | | | | | MEDICAL | | | | | | CENTER - | | | | | | LABORATORY | | + + + + + + | MPV | 9.5 | 6.5 - 12.4 fL | [facility] | | | | | | [facility] | | | | | | MEDICAL | | | | | | CENTER - | | | | | | LABORATORY | | + + + + + + | % | 79.1 | 45.0 - 82.0 % | [facility] | | | Neutrophils | | | [facility] | | | | | | MEDICAL | | | | | | CENTER - | | | | | | LABORATORY | | + + + + + + | % | 14.2 (L) | 20.0 - 45.0 % | [facility] | | | Lymphocytes | | | [facility] | | | | | | MEDICAL | | | | | | CENTER - | | | | | | LABORATORY | | + + + + + + | % Monocytes | 5.1 | 4.0 - 12.0 % | [facility] | | | | | | [facility] | | | | | | MEDICAL | | | | | | CENTER - | | | | | | LABORATORY | | + + + + + + | % | 0.7 | 0.0 - 5.0 % | [facility] | | | Eosinophils | | | [facility] | | | | | | MEDICAL | | | | | | CENTER - | | | | | | LABORATORY | | + + + + + + | % Basophils | 0.4 | 0.0 - 1.0 % | [facility] | | | | | | [facility] | | | | | | MEDICAL | | | | | | CENTER - | | | | | | LABORATORY | | + + + + + + | % Immature | 0.5 (H)Comment: | 0.0 - 0.4 % | [facility] | | | Granulocyte | Preliminary studies have | | [facility] | | | s | indicated the IG% | | MEDICAL | | | | and/or IG# show promise | | CENTER - | | | | as an early indicator | | LABORATORY | | | | for infection. For | | | | | | patients, use | | | | | | the special reference | | | | | | ranges listed below. | | | | + + + + + + | Absolute | 12.77 (H) | 1.80 - 8.50 | [facility] | | | Neutrophils | | K/uL | [facility] | | | | | | MEDICAL | | | | | | CENTER - | | | | | | LABORATORY | | + + + + + + | Absolute | 2.30 | 0.60 - 3.20 | [facility] | | | Lymphocytes | | K/uL | [facility] | | | | | | MEDICAL | | | | | | CENTER - | | | | | | LABORATORY | | + + + + + + | Absolute | 0.83 | 0.00 - 1.00 | [facility] | | | Monocytes | | K/uL | [facility] | | | | | | MEDICAL | | | | | | CENTER - | | | | | | LABORATORY | | + + + + + + | Absolute | 0.11 | 0.00 - 0.40 | [facility] | | | Eosinophils | | K/uL | [facility] | | | | | | MEDICAL | | | | | | CENTER - | | | | | | LABORATORY | | + + + + + + | Absolute | 0.07 | 0.00 - 0.10 | [facility] | | | Basophils | | K/uL | [facility] | | | | | | MEDICAL | | | | | | CENTER - | | | | | | LABORATORY | | + + + + + + | Absolute | 0.08 (H)Comment: For | 0.00 - 0.03 | [facility] | | | Immature | patients, use | K/uL | [facility] | | | Granulocyte | the special [...] ranges: Trim. Absolute (K/uL) Percentage (%) | [facility] | | 1st 0.003-0.091 K/uL 0.0-0.9% 2nd 0.007-0.247 K/uL | [facility] | | 0.1-2.0% 3rd 0.018-0.456 K/uL 0.1-2.0% | - LABORATORY | + + + + + + + + | Performing | Address | City/State/Zipcode | Phone Number | | Organization | | | | + + + + + | [facility] | [address] | [place] | [phone] | | [facility] | | [address] | | | - LABORATORY | | | | + + + + + documented in this encounter Visit Diagnoses + + | Diagnosis | + + | Hemorrhagic ovarian cyst - Primary Other and unspecified ovarian cyst | + + documented in this encounter Administered Medications + +--------+ +--------+------+------+ | Medication Order | MAR | Action | Dose | Rate | Site | | | Action | Date | | | | + +--------+ +--------+------+------+ | HYDROmorphone (DILAUDID) | Given | 08/22/20 | 0.5 mg | | | | injection 0.5 mg 0.5 mg, | | 19 10:50 | | | | | Intravenous, ONCE, [facility] 08/22/19 | | PM PST | | | | | at 2245, For 1 dose | | | | | | + +--------+ +--------+------+------+ +---+---+ | | | +---+---+ + +-------+ +------+---+---+ | HYDROmorphone (DILAUDID) | Given | 08/22/20 | 1 mg | | | | injection 1 mg 1 mg, | | 19 9:39 | | | | | Intravenous, ONCE, [facility] 08/22/19 | | PM PST | | | | | at 2120, For 1 dose | | | | | | + +-------+ +------+---+---+ +---+---+ | | | +---+---+ + +-------+ +-------+---+---+ | ketorolac (TORADOL) injection | Given | 08/22/20 | 30 mg | | | | 30 mg 30 mg, Intravenous, ONCE, | | 19 11:10 | | | | | [facility] 08/22/19 at 2305, For 1 dose | | PM PST | | | | + +-------+ +-------+---+---+ +---+---+ | | | +---+---+ + + + + +---+---+ | oxyCODONE-acetaminophen | Dispense | 08/22/20 | 1 tablet | | | | (PERCOCET) 5-325 mg per tablet | to Home | 19 11:52 | | | | | (ED prepack) 1-2 tablet 1-2 | | PM PST | | | | | tablet, Oral, EVERY 6 HOURS PRN, | | | | | | | Pain, Starting Luz 08/22/19 at | | | | | | | 2335, Patient Address: [facility] [address] | | | | | | [facility] [place] [address], | | | | | | + + + + +---+---+ +---+---+ | | | +---+---+ + +-------+ +---------+---+---+ | promethazine (PHENERGAN) (IV | Given | 08/22/20 | 6.25 mg | | | | ONLY) injection 6.25 mg 6.25 mg, | | 19 9:40 | | | | | Intravenous, ONCE, [facility] 08/22/19 | | PM PST | | | | | at 2120, For 1 dose, Vesicant. | | | | | | | When ordered IV push: Dilute to | | | | | | | 10-20mL with NS. Give over 2-3 | | | | | | | minutes into large vein. Do not | | | | | | | give in hand/wrist or foot/ankle | | | | | | | vein. Max dose 12.5mg if giving | | | | | | | peripherally., | | | | | | + +-------+ +---------+---+---+ +---+---+ | | | +---+---+ + +---------+ +--------+-------+---+ | sodium chloride 0.9% (NS) bolus | New Bag | 08/22/20 | 1,000 | 1000 | | | 1,000 mL 1,000 mL, Intravenous, | | 19 9:39 | mLs | mL/hr | | | Administer over 1 Hours, ONCE, | | PM PST | | | | | Luz 08/22/19 at 2120, For 1 dose | | | | | | + +---------+ +--------+-------+---+ +---+---+ | | | +---+---+ documented in this encounter"
--- OUTSIDE RECORDS SUMMARY | ~2020-01-13 | XMS | Encounter Summary ---
Demographics + + + | Address | [address] | | | [place] [address] | + + + | Home Phone | | + + + | Preferred Language | Unknown | + + + | Marital Status | Single | + + + | Mosque Affiliation | 1013 | + + + | Race | Unknown | + + + | Ethnic Group | Unknown | + + + Author + + + | Author | [facility] | | | and [place] | + + + | Organization | [facility] | | | and [...] Team Providers + +------+ + | Care Funding Analyst Name | Role | Phone | + +------+ + | No, Physician | PCP | Unavailable | + +------+ + Reason for Visit + + + | Reason | Comments | + + + | Non-stress Test | Lower abdominal pain | + + + Encounter Details +--------+ + + + + | Date | Type | Department | Care Team | Description | +--------+ + + + + | 07/29/ | Hospital | [facility] | Becky York | | | 2015 | Encounter | [facility] | Ngoc Steen DO | | | | | [address] | [address] | | | | | [place], [place] | [place], [place] | | | | | [address] | [address] | | | | | [phone] | | | +--------+ + + + [...] + + + | Blood Pressure | 104/64 | 07/29/2015 10:00 PM | | | | | PST | | + + + + + | Pulse | 84 | 07/29/2015 10:00 PM | | | | | PST | | + + + + + | Temperature | 36.7 C (98.1 F) | 07/29/2015 10:00 PM | | | | | PST | | + + + + + | Respiratory Rate | 18 | 07/29/2015 10:00 PM | | | | | PST | | + + + + + | Oxygen Saturation | 100% | 07/29/2015 10:00 PM | | | | | PST | | + + + + + | Inhaled Oxygen | - | - | | | Concentration | | | | + + + + + | Weight | 73.9 kg (163 lb) | 07/29/2015 10:22 PM | | | | | PST | | + + + + + | Height | 152.4 cm (5') | 07/29/2015 10:22 PM | | | | | PST | | + + + + + | Body Mass Index | 31.83 | 07/29/2015 10:22 PM | | | | | PST | | + + + + + documented in this encounter Discharge Instructions Instructions Millie Pang RN - 07/29/2015Discharge Education for the Undelivered Krys ent You can use the following list as a guide to help you know when to call your provider or re turn to the hospital. Labor Contractions (labor pains) every 5 minutes or less, lasting 60 seconds or more Contractions become stronger Bag of boles broken or leaking fluid from the vagina Labor (more than 3 weeks before your due date) Contractions (labor pains) that occur more than 4 times per hour (every 15 minutes), la sting 30 seconds or more, for 2 hours Backache or pelvic pressure Bag of boles broken or leaking fluid from the vagina Movement Counting Starting at 7 months (28 weeks) Decreased (less than 10 movements in 2 hours) Other Reasons to Call Constant headache Changes in vision Sudden increase in swelling, especially rapid weight gain chiefly in your face and/ or hands Constant abdominal (belly) pain Bright red vaginal bleeding or passing enough clots to need a pad Temperature over 100.4 (38 C) documented in this encounter Medications at Time [...] +---------+--------+ + documented as of this encounter Progress Notes Millie Pang RN - 07/29/2015 11:50 PM PSTPt given discharge instructions, she verbali zes understanding. Pt accompanied out by mother and father. Millie Barakat RN - 07/29/2015 11:[address] Denys kraus notified of results and says to check patient's cervix and as if its closed and long, she can be sent home with precaution instructions. Prophylaxis antibiotics will be st arted for possibly UTI which Will be calling prescriptions into the pharmacy. Electronic ally signed by Millie Pang RN at 07/29/2015 11:21 PM Millie Barakat RN - 2014 10:50 [address]Dr[address] York notified of FHT and pt complaints. Urine culture, 12-lead EK G, and glucose check ordered. EKG reveals NSR with frequent PVC's, otherwise normal. Glucose 117. Olivia Barakat RN - 07/29/2015 10:00 PM PSTPt presents to L&D with c/o lower abdominal pain and heart palpitations. Pt also states she is gestational diabetic and her most recent sugar was 170. Pt instructed to void in clean catch cup, changed into gown and placed on monitors. Vitals s igns taken and ice water given. documented in this encounter Plan of Treatment Not on filedocumented as of this encounter Procedures + +--------+ + + + | Procedure Name | Priori | Date/Time | Associated Diagnosis | Comments | | | ty | | | | + +--------+ + + + | ECG 12 LEAD | STAT | 07/29/2015 | | Results for this | | | | 11:08 PM | | procedure are in the | | | | PST | | results section. | + +--------+ + + + | POC GLUCOSE | Routin | 07/29/2015 | | Results for this | | | e | 11:04 PM | | procedure are in the | | | | PST | | results section. | + +--------+ + + + | CULTURE, URINE | STAT | 07/29/2015 | | Results for this | | | | 11:01 PM | | procedure are in the | | | | PST | | results section. | + +--------+ + + + | URINALYSIS WITH | Routin | 07/29/2015 | | Results for this | | MICROSCOPIC | e | 10:14 PM | | procedure are in the | | | | PST | | results section. | + +--------+ + + + documented in this encounter Results ECG 12 lead (07/29/2015 11:08 PM PST) + + + + + + | Component | Value | Ref Range | Performed | Pathologist | | | | | At | Signature | + + + + + + | VENTRICULAR | 93 | BPM | [facility] | | | RATE EKG | | | | | + + + + + + | ATRIAL RATE | 93 | BPM | [facility] | | + + + + + + | P-R | 150 | ms | [facility] | | | INTERVAL | | | | | + + + + + + | QRS | 78 | ms | [facility] | | | DURATION | | | | | + + + + + + | Q-T | 368 | ms | [facility] | | | INTERVAL | | | | | + + + + + + | Q-T | 457 | ms | [facility] | | | INTERVAL | | | | | | (CORRECTED) | | | | | + + + + + + | P WAVE AXIS | 49 | degrees | [facility] | | + + + + + + | QRS AXIS | 46 | degrees | [facility] | | + + + + + + | T AXIS | 14 | degrees | [facility] | | + + + + + + | INTERPRETAT | Sinus rhythm with | | [facility] | | | ION TEXT | frequent premature | | | | | | ventricular | | | | | | complexesOtherwise | | | | | | normal ECGNo previous | | | | | | ECGs availableConfirmed | | | | | | by MEI REDMOND MD | | | | | | ([id number]) on 07/30/2015 | | | | | | 9:36:58 AM | | | | + + [...] | | | + +---------+ + + POC Glucose (07/29/2015 11:04 PM PST) + +-------+ + + + | Component | Value | Ref Range | Performed | Pathologist | | | | | At | Signature | + +-------+ + + + | Glucose, | 117 | 70 - 150 mg/dL | [facility] | | | POC | | | [facility] | | [...] [address] | [place] | [phone] | | [facility] | | [address] | | | - LABORATORY | | | | + + + + + Culture, Urine (07/29/2015 11:01 PM PST) + + + + + + | Component | Value | Ref Range | Performed | Pathologist | | | | | At | Signature | + + + + + + | Culture | 30,000 CFU/ml Mixed | | [facility] | | | | marisel (multiple | | [facility] | | | | morphologies | | [...] [address] | [place] | [phone] | | [facility] | | [address] | | | - LABORATORY | | | | + + + + + Urinalysis With Microscopic (07/29/2015 10:14 PM PST) + + + + + + | Component | Value | Ref Range | Performed | Pathologist | | | | | At | Signature | + + + + + + | Color, | Yellow | Light Yellow, | [facility] | | | Urine | | Yellow | [facility] | | | | [...] + + + | pH, Urine | 6.5 | 5.0 - 8.0 | [facility] | | | | | | [facility] | | | | | | MEDICAL | | | | | | CENTER - | | | | | | LABORATORY | | + + + + + + | Specific | 1.025 | 1.001 - 1.030 | [facility] | | | [place], | | | [facility] | | [...] + + + + | Urobilinoge | 0.2 E.U./dL | 0.2 E.U./dL, | [facility] | | | n, Urine | | 1.0 E.U./dL | [facility] | | | | [...] + + + + | Squamous | 10-15 (A) | 0 - 2 /LPF | [...] + + + + | Amorphous | Moderate (A) | None Seen /HPF | [facility] [...] | + + + + + | [facility] | [address] | [place] | [phone] | | [facility] | | [address] | | | - LABORATORY | | | | + + + + + documented in this encounter Visit Diagnoses Not on filedocumented in this encounter"
--- OUTSIDE RECORDS SUMMARY | ~2020-01-13 | XMS | Encounter Summary ---
Demographics + + + | Address | [address] | | | [place] [address] | + + + | Home Phone [...] | Organization | [facility] [...] Team Providers + +------+ + | Care Head Of Drama Name | Role | Phone | + [...] + + | 07/29/ | Hospital | [facility] | Becky York | | | 2015 | Encounter | [facility] | Ngoc Steen DO | | | | | [address] | [address] | | | | | [place], [place] | [place], [place] | | | | | [address] | [address] | | | | | [phone] | | | +--------+ + + + [...] MD | | | | | | ([id number]) on 07/30/2015 | | | | | [...] [address] | [place] | [phone] | | [facility] | | [address] | | | - LABORATORY | | [...] [address] | [place] | [phone] | | [facility] | | [address] | | | - LABORATORY | | [...] - 1.030 | [facility] | | | [place], | | | [facility] | | [...] | + + + + + | [facility] | [address] | [place] | [phone] | | [facility] | | [address] | | | - LABORATORY | | | | + + + + + documented in this encounter Visit Diagnoses Not on filedocumented in this encounter"
--- OUTSIDE RECORDS SUMMARY | ~2020-01-13 | XMS | Encounter Summary ---
Demographics + + + | Address | [address] | | | [place] [address] | + + + | Home Phone [...] Organization | [facility] [...] Team Providers + +------+ + | Care Pastry Artist Name | Role | Phone | + +------+ + | Phi Singh NP | PCP | | + +------+ + Encounter Details +--------+ + + + + | Date | Type | Department | Care Team | Description | +--------+ + + + + | 09/21/ | Hospital | [facility] | Phi Singh | Cervical radicular | | 2018 | Encounter | [facility] [address] | [address] | pain | | | | [place] | [place], | | | | | [place] [address] | [address], | | | | | [phone] | [place] [address] | | | | | | [phone] | | | | | | | [...]
--- OUTSIDE RECORDS SUMMARY | ~2020-01-13 | XMS | Encounter Summary ---
Demographics + + + | Address | [address] | | | [place] [address] | + + + | Home Phone [...] | Organization | [facility] | | | and [...] Team Providers + +------+ + | Care Clearance Cutter Name | Role | Phone | + +------+ + | Katy Sanford MD | PCP | | + +------+ + Reason for Visit + + + | Reason | Comments | + + + | Migraine | rm 2/ x 5 days | + + + Encounter Details +--------+---------+ + + + | Date | Type | Department | Care Team | Description | +--------+---------+ + + + | 07/25/ | Office | [facility] | Micheline, | Intractable migraine | | 2018 | Visit | CARE [address] | Bonilla Patricia MD | without aura and | | | | [place] | [address] | without status | | | | [address] | [place] | migrainosus (Primary | | | | [phone] | [address] | Dx) | | | | | | [...] + + + | Blood Pressure | 120/72 | 07/25/2018 4:19 PM | | | | | PST | | + + + + + | Pulse | 93 | 07/25/2018 4:19 PM | | | | | PST | | + + + + + | Temperature | 37 C (98.6 F) | 07/25/2018 4:19 PM | | | | | PST | | + + + + + | Respiratory Rate | 16 | 07/25/2018 4:19 PM | | | | | PST | | + + + + + | Oxygen Saturation | 98% | 07/25/2018 4:19 PM | | | | | PST | | + + + + + | Inhaled Oxygen | - | - | | | Concentration | | | | + + + + + | Weight | 61.3 kg (135 lb 2.3 | 07/25/2018 4:19 PM | | | | oz) | PST | | + + + + + | Height | 152.4 cm (5') | 07/25/2018 4:19 PM | | | | | PST | | + + + + + | Body Mass Index | 26.39 | 07/25/2018 4:19 PM | | | | | PST | | + + + + + documented in this encounter Patient Instructions Patient Instructions Bonilla Tobias MD - 07/25/2018 4:30 PM PST What Are Migraine and Tension Headaches? Although there are several types of headaches, migraine and tension headaches affect the mo st people. When you have a headache, it isn't your brain that's hurting. Your head aches bec ause nerves in the bones, blood vessels, meninges, and muscles of your head are irritated. T hese irritated nerves send pain signals to the brain, which identifies where you hurt and ho w bad the pain is. Talk with your healthcare provider about a treatment plan that may help relieve pain and pr event future headaches. What causes your headache? The actual headache process is not yet understood.Only rarely are headaches a sign of a s erious medical problem such as a tumor. Headache pain may be caused by abnormal interaction between the brain and the nerves and blood vessels in the head. A previous head injury or co ncussion, neck pain, environmental stresses, muscle tension, anxiety, depression, fatigue, s kipping meals, or certain foods and drinks may trigger headache pain. Brain scans are rarely needed and only for certain danger sign symptoms. CT scans are assoc iated with potential radiation effects and potential inaccurate false findings. What is referred pain? Headache pain can be referred pain, which ispain that has its source in one place but is felt in another. For example, pain behind the eyes may actually be caused by tense muscles i n the neck and shoulders. This means that the place that hurts may not be the part of the keven dy that needs treatment. Is it a migraine? Migraine is a vascular headache that causes throbbing pain felt on one (most common) or bot h sides (less common) of the head. You may feel nauseated or vomit. This headache may also b e preceded or associated with changes in sight (like seeing spots or flashes of light), abil ity to speak, or sensation (aura). There are a wide variety of environmental and food-relate d triggers for migraines. The pain may last for 4 to 72 hours. Afterward, you may feel shaky for a day or so. If this is the first time you experience these symptoms, you should immedi ately seek medical attention becauseyou could be having a stroke. Is it a tension headache? This type of headache is usually a dull ache or a sensation of pressure on both sides of th e head. It may be associated with pain or tension in the neck and shoulders. Depression, anx iety, and stress can cause a tension headache. The pain may not have a definite beginning or end. It may come and go, or seem never to go away. When to call the healthcare provider Call yourhealthcare providerfor headaches thathappen along with any of these symptoms : Sudden, severe headache that is different from your usual headache pain Headache associated with fever Sudden headache associated with stiff neck Slurred speech Recurring headache in children Ongoing numbness or muscle weakness Loss of vision Pain following a head injury Convulsions, or a change in mental awareness A headache you would call "the worst headache you've ever had" New headaches in a woman Date Last Reviewed: 09/04/201719990033-8519 [employer]. [address] [place] [address]. All righ ts reserved. This information is not intended as a substitute for professional medical care. Always follow your healthcare professional's instructions. documented in this encounter Progress Notes Zoya Marquis RN - 07/25/2018 4:30 PM PSTFormatting of this note might be diff erent from the original. Verified name and date of of patient before provider orders were carried out. Administrations This Visit ketorolac (TORADOL) injection 60 mg Admin Date 07/25/2018 Action Given Dose 60 mg Route Intramuscular Administered By Zoya Marquis RN promethazine (PHENERGAN) (IM ONLY) injection 25 mg Admin Date 07/25/2018 Action Given Dose 25 mg Route Intramuscular Administered By Zoya Marquis RN Patient remained in clinic ~ 20 minutes after injection. No adverse s/s from injection note d at time of discharge. Bonilla Contreras MD - 07/25/2018 4:30 PM PST Subjective: Chief Complaint: Migraine (rm 2/ x 5 days) Nataly is a 38 y.o. female who comes in complaining of headache. HPI this 38-year-old presents with a headache for 5 days. She has a long history of migrai ne headaches. She also has a one-year history of neck troubles with some cervical rib and t horacic outlet syndrome in process of being worked up. She developed headache about 5 days ago. It has varied from being unilateral and bilateral. 2 days ago and was under her right eye yesterday under her left and states behind both. His pounding severe and associated wi th some nausea and photophobia. There is no excessive tearing or photophobia. She has no f ever stiff neck or preceding illnesses such as URI infection or herpes outbreak. There have been no tick bites or foreign travel. Her last severe migraine was about one year ago. She has had less migraines since having h er IUD taken out. Menstrual migraine has been hurt common trigger in the past. She has no new numbness tingling or weakness in association with this headache. She has taken Imitrex and Maxalt ibuprofen with temporary relief only. She did run out of her when necessary baclofen about 10 days ago and wonders if this may ornelas ve allowed the headache to breakthrough Patient's medications, allergies, past medical, surgical, social and family histories were reviewed and updated as appropriate. ROS See above Objective: BP 120/72 | Pulse 93 | Temp 37 C (98.6 F) (Temporal) | Resp 16 | Ht 1.524 m (5') | Wt 61.3 kg (135 lb 2.3 oz) | SpO2 98% | BMI 26.39 kg/m Physical Exam Prefers a darkened room. She is awake and alert and cooperative. Her vital signs are norm al. HEENT she has photophobia but reactive pupils that are equal. TMs and throat are normal. Neck is completely supple with some scaling tightness and tenderness bilaterally but no mass effect. Lungs and heart are normal abdomen soft nontender neurologic a and O 4 cranial n erves II-12 are tested and intact. She has normal strength and sensation in all 4 extremiti es to screening exam. Her DTRs are 2+ at the elbows and knees. She has a negative Romberg and normal tandem gait and finger to nose testing. No results found for this or any previous visit (from the past 24 hour(s)). Assessment and Plans: 1. Intractable migraine without aura and without status migrainosus Prolonged migraine perhaps aggravated by neck contraction/tension component. She is given Toradol 60 and promethazine 25 mg IM and rechecked. Her headache has not really improved mu ch at 45 minutes. We decided to refill her baclofen and give her hydrocodone No. 10 which she has tolerated i n the past. She is strongly cautioned to proceed to the ER if the headache is not resolved in the next 24-48 hours or of course if it worsens or changes in its pattern. This note was dictated using [employer] voice recognition software. Occasional wrong- word or s ound-alike substitutions may have occurred due to the inherent limitations of voice recognit ion software. Please read the chart carefully and recognize, using context, where these subs titutions have occurred. documented in this encounter Plan of Treatment Not on filedocumented as of this encounter Visit Diagnoses + + | Diagnosis | + + | Intractable migraine without aura and without status migrainosus - Primary Migraine | | without aura, with intractable migraine, so stated, without mention of status | | migrainosus | + + documented in this encounter Administered Medications + +--------+ +-------+------+ + | Medication Order | MAR | Action | Dose | Rate | Site | | | Action | Date | | | | + +--------+ +-------+------+ + | ketorolac (TORADOL) injection | Given | 07/25/20 | 60 mg | | Glut-Rig | | 60 mg 60 mg, Intramuscular, | | 18 4:55 | | | ht | | ONCE, Mon07/25/18 at 1700, For 1 | | PM PST | | | | | dose | | | | | | + +--------+ +-------+------+ + +---+---+ | | | +---+---+ + +-------+ +-------+---+ + | promethazine (PHENERGAN) (IM | Given | 07/25/20 | 25 mg | | Glut-Rig | | ONLY) injection 25 mg 25 mg, | | 18 4:55 | | | ht | | Intramuscular, ONCE, Mon07/25/18 | | PM PST | | | | | at 1700, For 1 dose, Vesicant. | | | | | | | Give by deep IM injection into a | | | | | | | large muscle., | | | | | | + +-------+ +-------+---+ + +---+---+ | | | +---+---+ documented in this encounter
--- OUTSIDE RECORDS SUMMARY | ~2020-01-13 | XMS | Encounter Summary ---
Demographics + + + | Address | [address] | | | [place] [address] | + + + | Home Phone | | + + + | Preferred Language | Unknown | + + + | Marital Status | Single | + + + | Anglican Affiliation | 1013 | + + + | Race | Unknown | + + + | Ethnic Group | Unknown | + + + Author + + + | Author | [facility] | | | and [place] | + + + | Organization | [facility] | | | and [place] [...] Team Providers + +------+ + | Care Supply Chain Development Manager Name | Role | Phone | [...] | | | [place] | [place] [address] | | | | | | [place] | Phone: | | | | | | [address] | [phone] | | | | | | Phone: | Fax: | | | | | | [phone] | [phone] | | | | | | Fax: | | | | | | | [phone] | | + + + + + + + Encounter Details +--------+---------+ + + + | Date | Type | Department | Care Team | Description | +--------+---------+ + + + | 12/09/ | Office | [facility] | Vivien Madera MD | Foreign body in skin | | 2020 | Visit | SURGERY [address] | [address] [facility] | (Primary Dx) | | | | [facility], [place] | [place] [address] | | | | | [address] | [phone] | | | | | [phone] | | | +--------+---------+ + + + [...] in skin Entire visit was performed with graduate teaching associate: VESTA Waldrop Physician notes: Nataly is here [...] this chart may have been created with [employer] voice recognition software. Occasi onal wrong-word or [...] body in | Ordered: 11/20/2019 | | [facility] - | Referral | e | skin [...]
--- OUTSIDE RECORDS SUMMARY | ~2020-01-13 | XMS | Encounter Summary ---
Demographics + + + | Address | [address] | | | [place] [address] | + + + | Home Phone | | + + + | Preferred Language | Unknown | + + + | Marital Status | Single | + + + | Shinto Affiliation | 1013 | + + + | Race | Unknown | + + + | Ethnic Group | Unknown | + + + Author + + + | Author | [facility] | | | and [place] | + + + | Organization | [facility] | | | and [place] [...] Team Providers + +------+ + | Care Webbing Supervisor Name | Role | Phone | [...] | 06/25/ | Telephone | [facility] | aKty Sanford MD | Results | | 2018 | | [facility] | [address] | | | | | [address] | [place] | | | | | [place] | [address] | | | | | [address] | | | | | | [phone] | | | +--------+ + + + [...]
--- OUTSIDE RECORDS SUMMARY | ~2020-01-13 | XMS | Encounter Summary ---
Demographics + + + | Address | [address] | | | [place] [address] | + + + | Home Phone | | + + + | Preferred Language | Unknown | + + + | Marital Status | Single | + + + | Church Affiliation | 1013 | + + + | Race | Unknown | + + + | Ethnic Group | Unknown | + + + Author + + + | Author | [facility] | | | and [place] | + + + | Organization | [facility] | | | and [...] Team Providers + +------+ + | Care Computer Hardware Engineer Name | Role | Phone | + +------+ + | No, Physician | PCP | Unavailable | + +------+ + Encounter Details +--------+ + + + + | Date | Type | Department | Care Team | Description | +--------+ + + + + | 08/12/ | Hospital | [facility] | Edi Sprague | Normal , | | 2015 | Encounter | [address] | MD José [address] | second trimester | | | | [place] | [place] | | | | | [address] | [address] | | | | | [phone] | | | +--------+ + + + [...] mg by | | 0 | | 02/24/201 | | (PHENERGAN) 12.5 MG | mouth [...]
--- OUTSIDE RECORDS SUMMARY | ~2020-01-13 | XMS | Encounter Summary ---
Demographics + + + | Address | [address] | | | [place] [address] | + + + | Home Phone [...] + | Organization | [facility] | [...] Team Providers + +------+ + | Care Field Control Inspector Name | Role | Phone | + +------+ + | Phi Singh NP | PCP | | + +------+ + Reason for Visit + + + | Reason | Comments | + + + | Numbness | RM5; left arm flare thoracic outlet syndrome per patient | + + + Encounter Details +--------+---------+ + + + | Date | Type | Department | Care Team | Description | +--------+---------+ + + + | 11/14/ | Office | [facility] | [facility] | Thoracic outlet | | 2018 | Visit | [facility] [address] | Bonilla Patricia MD | syndrome associated | | | | [place] | [address] | with cervical rib | | | | [address] | [place] | (Primary Dx) | | | | [phone] | [address] | | | | | | | [...] + + + | Blood Pressure | 101/68 | 11/14/2017 1:08 PM | | | | | PDT | | + + + + + | Pulse | 90 | 11/14/2017 1:08 PM | | | | | PDT | | + + + + + | Temperature | 36.7 C (98.1 F) | 11/14/2017 1:08 PM | | | | | PDT | | + + + + + | Respiratory Rate | 16 | 11/14/2017 1:08 PM | | | | | PDT | | + + + + + | Oxygen Saturation | 96% | 11/14/2017 1:08 PM | | | | | PDT | | + + + + + | Inhaled Oxygen | - | - | | | Concentration | | | | + + + + + | Weight | 62 kg (136 lb 11 oz) | 11/14/2017 1:08 PM | | | | | PDT | | + + + + + | Height | 152.4 cm (5') | 11/14/2017 1:08 PM | | | | | PDT | | + + + + + | Body Mass Index | 26.69 | 11/14/2017 1:08 PM | | | | | PDT | | + + + + + documented in this encounter Patient Instructions Patient Instructions Bonilla Tobias MD - 11/14/2017 12:45 PM PDT Understanding Thoracic Outlet Syndrome Thoracic outlet syndrome is [...] can occur in people of any age. What is the thoracic outlet? The thoracic outlet is a narrow space between your collarbone (clavicle) and your first rib . Nerves and blood vessels pass from your chest to your arm through this area. The nerves an d blood vessels include: A bundle of nerves that serve your shoulder, arm, and hand A large and important vein (subclavian vein) A very large important artery (subclavian artery) What causes thoracic outlet syndrome? Your shoulder muscles normally keep your clavicle raised and in place. But with thoracic ou tlet syndrome, the upper rib and clavicle are closer. This makes the thoracic outlet smaller . Nerves and blood vessels going through the area can be compressed. Conditions that can cau se thoracic outlet syndrome include: Having an extra rib at An abnormality in the neck muscles at Neck injury Injury to the first rib or collarbone Repetitive overhead arm movements that may cause inflammatory changes Poor posture and obesity may raise your risk for thoracic outlet syndrome. People who do re petitive overhead arm movements, such as swimmers or pitchers, may also have a higher risk. Symptoms of thoracic outlet syndrome Your symptoms may come and go. This may be partly based on your activity level. Overhead ac tivities may make your symptoms worse. You most likely have symptoms on only 1 side. In some cases thoracic outlet syndrome can cause symptoms on both sides of the body. Symptoms can include: Aching in your neck, shoulder, arm, or hand Pain, numbness, or tingling of your forearm or fingers Hand weakness Limited range of motion of your arm A depression in your shoulder Pain in your neck muscles Swelling and redness of your arm Pale and cool arm and hand Diagnosing thoracic outlet syndrome Thoracic outlet syndrome is often more difficult to diagnose than other shoulder problems. Your healthcare provider will ask about your health history and your symptoms. You will also have a physical exam. Your healthcare provider may move your hand and arm in different posi tions. A specific test may be done to help diagnose thoracic outlet syndrome. Your healthcare prov ider may have you raise your arms and then open and close your fist for a few minutes. This often brings on symptoms. You may have other tests, such as: Nerve conduction tests. This is done to see how your nerves are affected. Doppler ultrasound. This looks at blood flow through your arm and hand. Chest X-ray. This is done to check for abnormal bone such as an extra rib. CT scan. This may be done if your healthcare provider needs to see more detail. CT angiography. This is done to get more information about blood flow through your arm. Date Last Reviewed: 02/02/[id number] [facility]. [address] [place] [address], [place] [address]. All righ ts reserved. This information is not intended as a substitute for professional medical care. Always follow your healthcare professional's instructions. documented in this encounter Progress Notes Bonilla Tobias MD - 11/14/2017 12:45 PM PDTFormatting of this note might be di fferent from the original. Subjective: Chief Complaint: Numbness (RM5; left arm flare thoracic outlet syndrome per patient) Nataly is a 37 y.o. female who comes in complaining of TOS sx HPI yest and today flared up after a week or so of improvements. Her pcp ordered PT but s he hasnt been able to go yet but has appt this week . Is quitting smoking!!! on the chantix . She is on baclofen for the tos and it did seem to help until a few days ago. Is in process of switching to dr busch in [place] but first available is in March Patient's medications, allergies, past medical, surgical, social and family histories were reviewed and updated as appropriate. ROS no fever, loss of muscle strength Objective: BP 101/68 | Pulse 90 | Temp 36.7 C (98.1 F) (Temporal) | Resp 16 | Ht 1.524 m (5') | Wt 62 kg (136 lb 11 oz) | LMP 10/17/2017 (Approximate) | SpO2 96% | ? No | BMI 26.69 kg/m Physical Exam Non toxic, Strength and sensation BUE normal, , DTR's 2+ biceps. Triceps. Brachioradialis bilat Radial pulses dampness before when arms or overhead Assessment and Plans: 1. 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 She is allergic to tramadol. I feel that her best treatment would be getting a physical therapy and I did advise she can take a thir d tablet of baclofen daily if needed for a flare up. She understands and agrees to plan alb eit a little reluctantly. This note was dictated using [employer] voice recognition software. Occasional wrong- word or s ound-alike substitutions may have occurred due to the inherent limitations of voice recognit ion software. Please read the chart carefully and recognize, using context, where these subs titutions have occurred. 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
--- OUTSIDE RECORDS SUMMARY | ~2020-01-13 | XMS | Encounter Summary ---
Demographics + + + | Address | [address] | | | [place] [address] | + + + | Home Phone | | + + + | Preferred Language | Unknown | + + + | Marital Status | Single | + + + | Rastafarian Affiliation | 1013 | + + + | Race | Unknown | + + + | Ethnic Group | Unknown | + + + Author + + + | Author | [facility] | | | and [place] | + + + | Organization | [facility] | [...] Team Providers + +------+ + | Care Energy Scheduler Name | Role | Phone | + +------+ + PCP | Unavailable | + +------+ + Encounter Details +--------+ + + + + | Date | Type | Department | Care Team | Description | +--------+ + + + + | 05/26/ | Hospital | [facility] | Joe Lauren | | | 2002 - | Encounter | [facility] LAB[facility] | [place] [phone] | | | | | AND DELIVERY [address] | (Fax) Conversion | | | 05/29/ | | [address] | Transaction, | | | 2002 | | [place], [place] | Provider Unknown | | | | | [address] | [phone] | | | | | [phone] | | | +--------+ + + + [...]
--- OUTSIDE RECORDS SUMMARY | ~2020-01-13 | XMS | Encounter Summary ---
Demographics + + + | Address | [address] | | | [place] [address] | + + + | Home Phone [...] + | Organization | [facility] | | | and [...] Team Providers + +------+ + | Care Risk Consultant Name | Role | Phone | + +------+ + PCP | Unavailable | + +------+ + Encounter Details +--------+ + + + + | Date | Type | Department | Care Team | Description | +--------+ + + + + | 10/03/ | Hospital | [facility] | Joe Lauren | | | 2008 - | Encounter | CONVERSION DEP [address] | [place] [phone] | | | | | [place] | (Fax) | | | 10/09/ | | [place] | | | | 2006 | | [address] | | | | | | [phone] | | | +--------+ + + + [...]
--- OUTSIDE RECORDS SUMMARY | ~2020-01-13 | XMS | Encounter Summary ---
Demographics + + + | Address | [address] | | | [place] [address] | + + + | Home Phone | | + + + | Preferred Language | Unknown | + + + | Marital Status | Single | + + + | Jainism Affiliation | 1013 | + + + | Race | Unknown | + + + | Ethnic Group | Unknown | + + + Author + + + | Author | [facility] | | | and [place] | + + + | Organization | [facility] | | | and [place] [...] Team Providers + +------+ + | Care Seafood Clerk Name | Role | Phone | [...] + + | 10/26/ | Hospital | [facility] | Edi Sprague | | | 2016 | Encounter | MED CTR LABOR AND | MD [address] [facility] | | | | | DEL[address]ERY [address] | [place] [address] | | | | | [place], | [address] | | | | | [place] [address] | | | | | | [phone] | | | +--------+ + + + [...] tomorrow with Dr. Sprague Call physician or insurance solicitor's office for instructions if symptoms worsen.. Discharge [...] swishes, or rolls. Call your physician or insurance solicitor if there have not been 10 kicks in 1.5 hours Call physician or insurance solicitor, return to Labor and Delivery, call 911, or go to the nearest [facility] Room if: increased leakage or fluid, contractions [...] Nicci Pederson RN - 10/26/2015 12:00 PM [id number] PT here with complaints of decreased fe orquidea movement and contractions since 629. She reports being checked last week and was 1 cm, 70%. Her cervix has not changed with today's SVE, still 1 cm & 70%. Pt reports uterine c ontractions, but is talking through them and they palpate mild. [place] is not tracing a uterin e contraction [...]
--- OUTSIDE RECORDS SUMMARY | ~2020-01-13 | XMS | Encounter Summary ---
Demographics + + + | Address | [address] | | | [place] [address] | + + + | Home Phone | | + + + | Preferred Language | Unknown | + + + | Marital Status | Single | + + + | Orthodox Affiliation | 1013 | + + + | Race | Unknown | + + + | Ethnic Group | Unknown | + + + Author + + + | Author | [facility] | | | and [place] | + + + | Organization | [facility] | | | and [...] Team Providers + +------+ + | Care Guest Services Representative Name | Role | Phone | + [...] 2019 | | MED 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
--- OUTSIDE RECORDS SUMMARY | ~2020-01-13 | XMS | Encounter Summary ---
Demographics + + + | Address | [address] | | | [place] [address] | + + + | Home Phone | | + + + | Preferred Language | Unknown | + + + | Marital Status | Single | + + + | Voodoo Affiliation | [id number] | + + + | Race | Unknown | + + + | Ethnic Group | Unknown | + + + Author + + + | Author | [facility] | | | and [place] | + + + | Organization | [facility] | | | and [place] [...] Team Providers + +------+ + | Care Lens Generating Machine Tender Name | Role | Phone | + +------+ + | No, Physician | PCP | Unavailable | + +------+ + Reason for Visit + + + | Reason | Comments | + + + | Nasal Congestion | cough, congestion for the last 2 weeks, tired and weak, RM 3 | + + + Encounter Details +--------+---------+ + + + | Date | Type | Department | Care Team | Description | +--------+---------+ + + + | 02/26/ | Office | [facility] | Darryl Murry, | Acute bronchitis, | | 2018 | Visit | CARE [address] | MD [address] | unspecified organism | | | | [facility] | [facility] | (Primary Dx); Upper | | | | [id number] | [id number] | respiratory tract | | | | [phone] | | infection, | | | | | | unspecified type | +--------+---------+ + + + Social History [...] + + + | Blood Pressure | 100/63 | 02/26/2018 2:58 PM | | | | | PDT | | + + + + + | Pulse | 101 | 02/26/2018 2:58 PM | | | | | PDT | | + + + + + | Temperature | 37.1 C (98.7 F) | 02/26/2018 2:58 PM | | | | | PDT | | + + + + + | Respiratory Rate | - | - | | + + + + + | Oxygen Saturation | 97% | 02/26/2018 2:58 PM | | | | | PDT | | + + + + + | Inhaled Oxygen | - | - | | | Concentration | | | | + + + + + | Weight | 62 kg (136 lb 11 oz) | 02/26/2018 2:58 PM | | | | | PDT | | + + + + + | Height | 152.4 cm (5') | 02/26/2018 2:58 PM | | | | | PDT | | + + + + + | Body Mass Index | 26.69 | 02/26/2018 2:58 PM | | | | | PDT | | + + + + + documented in this encounter Patient Instructions Patient Instructions Darryl Murry MD - 02/26/2018 2:45 PM PDT Codeine; Promethazine oral syrup Brand Name: Pentazine with Codeine What is this medicine? CODEINE; PROMETHAZINE (KOE dorie; proe METH a zeen) is a cough suppressant and an antihistam ine. It helps to stop or reduce coughing due to colds or allergies. This medicine will not t reat an infection. How should I use this medicine? Take this medicine by mouth. Follow the directions on the prescription label. Use a special ly marked spoon or container to measure your medicine. Ask your pharmacist if you do not hav e one. Household spoons are not accurate. You can take it with or without food. Take it with food if it upsets your stomach. Take your medicine at regular intervals. Do not take it mor e often than directed. A special MedGuide will be given to you by the pharmacist with each prescription and refill . Be sure to read this information carefully each time. Talk to your field machinist regarding the use of this medicine in children. While this drug m ay be prescribed for children as young as 12 years for selected conditions, precautions do a pply. What side effects may I notice from receiving this medicine? Side effects that you should report to your doctor or health residential caregiver as soon as p ossible: allergic reactions like skin rash, itching or hives, swelling of the face, lips, or tong ue breathing problems confusion seizures signs and symptoms of low blood pressure like dizziness; feeling faint or lightheaded, f alls; unusually weak or tired trouble passing urine or change in the amount of urine Side effects that usually do not require medical attention (report to your doctor or health residential caregiver if they continue or are bothersome): constipation dry mouth nausea, vomiting tiredness What may interact with this medicine? Do not take this medicine with any of the following medications: alcohol antihistamines for allergy, cough and cold certain medicines for anxiety or sleep certain medicines for depression like amitriptyline, fluoxetine, sertraline certain medicines for seizures like phenobarbital, primidone cisapride dofetilide dronedarone general anesthetics like halothane, isoflurane, methoxyflurane, propofol local anesthetics like lidocaine, pramoxine, tetracaine MAOIs like Carbex, Eldepryl, Marplan, Nardil, and Parnate medicines that relax muscles for surgery metoclopramide other narcotic medicines for pain or cough phenothiazines like chlorpromazine, mesoridazine, prochlorperazine, thioridazine pimozide quinidine ziprasidone This medicine may also interact with the following medications: antiviral medicines for HIV or AIDS atropine certain antibiotics like erythromycin and clarithromycin certain medicines for bladder problems like oxybutynin, tolterodine certain medicines for fungal infections like ketoconazole and itraconazole certain medicines for Parkinson's disease like benztropine, trihexyphenidyl certain medicines for stomach problems like dicyclomine, hyoscyamine certain medicines for travel sickness like scopolamine ipratropium rifampin What if I miss a dose? If you miss a dose, take it as soon as you can. If it is almost time for your next dose, ta ke only that dose. Do not take double or extra doses. Where should I keep my medicine? Keep out of the reach of children. This medicine can be abused. Keep your medicine in a saf e place to protect it from theft. Do not share this medicine with anyone. Selling or giving away this medicine is dangerous and against the law. This medicine may cause accidental overdose and if taken by other adults, children, o r pets. Mix any unused medicine with a substance like cat littler or coffee grounds. Then th row the medicine away in a sealed container like a sealed bag or a coffee can with a lid. Do not use the medicine after the expiration date. Store at room temperature between 15 and 30 degrees C (59 and 86 degrees F). Protect from l ight. What should I tell my health care provider before I take this medicine? They need to know if you have any of these conditions: asthma glaucoma head injury difficulty passing urine other chronic illness seizure disorder sleep apnea stomach ulcer an allergic or unusual reaction to codeine, promethazine, phenothiazines, other medicine s, foods, dyes, or preservatives or trying to get breast-feeding What should I watch for while using this medicine? Use exactly as directed by your doctor or health residential caregiver. Do not take more than t he recommended dose. You may develop tolerance to this medicine if you take it for a long ti me. Tolerance means that you will get less cough relief with time. Tell your doctor or [facility] if your symptoms do not improve or if they get worse. If you have been taking this medicine for a long time, do not suddenly stop taking it becau se you may develop a severe reaction. Your body becomes used to the medicine. This does NOT mean you are addicted. Addiction is a behavior related to getting and using a drug for a non medical reason. If your doctor wants you to stop the medicine, the dose will be slowly lower ed over time to avoid any side effects. There are different types of narcotic medicines (opiates). If you take more than one type a t the same time or if you are taking another medicine that also causes drowsiness, you may h ave more side effects. Give your health care provider a list of all medicines you use. Your doctor will tell you how much medicine to take. Do not take more medicine than directed. Biju l emergency for help if you have problems breathing or unusual sleepiness. You may get drowsy or dizzy. Do not drive, use machinery, or do anything that needs mental alertness until you know how this medicine affects you. Do not stand or sit up quickly, rishi cially if you are an older patient. This reduces the risk of dizzy or fainting spells. Alcoh ol may interfere with the effect of this medicine. Avoid alcoholic drinks. Children may be at higher risk for side effects. If your child has slow breathing, noisy br eathing, confusion, or unusual sleepiness, stop giving this medicine and get medical help ri ght away. This medicine can make you more sensitive to the sun. Keep out of the sun. If you cannot av oid being in the sun, wear protective clothing and use sunscreen. Do not use sun lamps or ta nning beds/booths. This medicine will cause constipation. Try to have a bowel movement at least every 2 to 3 d ays. If you do not have a bowel movement for 3 days, call your doctor or health care profess ional. Your mouth may get dry. Chewing sugarless gum or sucking hard candy, and drinking plenty of water may help. Contact your doctor if the problem does not go away or is severe. NOTE:This sheet is a summary. It may not cover all possible information. If you have questi ons about this medicine, talk to your doctor, pharmacist, or health care provider. Copyright 2017 [employer] Acute Bronchitis Your healthcare provider has told you that you have acute bronchitis. Bronchitis is infecti on or inflammation of the bronchial tubes (airways in the lungs). Normally, air moves easily in and out of the airways. Bronchitis narrows the airways, making it harder for air to flow in and out of the lungs. This causes symptoms such as shortness of breath, coughing up yell ow or green mucus, and wheezing. Bronchitis can be acute or chronic. Acute means the conditi on comes on quickly and goes away in a short time, usually within 3 to 10 days. Chronic mean s a condition lasts a long time and often comes back. What causes acute bronchitis? Acute bronchitis almost always starts as a viral respiratory infection, such as a cold or t he flu. Certain factors make it more likely for a cold or flu to turn into bronchitis. These include being very young, being elderly, having a heart or lung problem, or having a weak i mmune system. Cigarette smoking also makes bronchitis more likely. When bronchitis develops, the airways become swollen. The airways may also become infected with bacteria. This is known as a secondary infection. Diagnosing acute bronchitis Your healthcare provider will examine you and ask about your symptoms and health history. Y ou may also have a sputum culture to test the fluid in your lungs. Chest X-rays may be done to look for infection in the lungs. Treating acute bronchitis Bronchitis usually clears up as the cold or flu goes away. You can help feel better faster by doing the following: Take medicine as directed. You may be told to take ibuprofen or other frdm-zoi-chzzywr m edicines. These help relieve inflammation in your bronchial tubes. Your healthcare provider may prescribe an inhaler to help open up the bronchial tubes. Most of the time,acute bronc hitisis caused by a viral infection. Antibiotics are usually not prescribed for viral infe ctions. Drink plenty of fluids, such as water, juice, or warm soup. Fluids loosen mucus so that you can cough it up. This helps you breathe more easily. Fluids also prevent dehydration. Make sure you get plenty of rest. Do not smoke. Do not allow anyone else to smoke in your home. Recovery and follow-up Follow up with your doctor as you are told. You will likely feel better in a week or two. B ut a dry cough can linger beyond that time. Let your doctor know if you still have symptoms (other than a dry cough) after 2 weeks, or if you re prone to getting bronchial infections . Take steps to protect yourself from future infections. These steps include stopping smokin g and avoiding tobacco smoke, washing your hands often, and getting a yearly flu shot. When to call your healthcare provider Call the healthcare provider if you have any of the following: Fever of 100.4F (38.0C) or higher, or as advised Symptoms that get worse, or new symptoms Trouble breathing Symptoms that don t start to improve within a week, or within 3 days of taking antibio tics Date Last Reviewed: 08/04/201619991581-9607 [employer]. [address] [place] [address]. All righ ts reserved. This information is not intended as a substitute for professional medical care. Always follow your healthcare professional's instructions. documented in this encounter Progress Notes Darryl Murry MD - 02/26/2018 2:45 PM PDTFormatting of this note might be different fr om the original. Subjective: Patient ID: Nataly Martinez is a 37 y.o. female.who presents today for Nasal Congestion ( cough, congestion for the last 2 weeks, tired and weak, RM 3) . HPI The patient is a 37-year-old female who is being seen today for 2 weeks of cough. She is h aving a little bit of sweats at night and the sputum is slightly green in color. She denies any fevers. There is minimal sore throat. She has a earache on the right side. She has a history of asthma with colds that she is not having shortness of breath or wheezing this ti me. The patient smokes a third pack daily. Social. Started 2 weeks ago. There is no problem list on file for this patient. Past Surgical History: Procedure Laterality Date ABDOMEN SURGERY 1999, 2007 exp lap x 2 CHOLECYSTECTOMY HERNIA REPAIR Current Outpatient Prescriptions Medication Sig Dispense Refill cetirizine (ZYRTEC) 10 mg tablet Take 1 tablet by mouth Daily. 1 gabapentin (NEURONTIN) 800 MG tablet 800 mg 3 times daily. And an additional 1.5 tablet s at bedtime 0 ibuprofen (ADVIL,MOTRIN) 600 MG tablet take [...] as needed for Cough. 120 mL 0 [id number] (DAYQUIL MULTI-SYMPTOM COLD/FLU PO) Take by mouth. sertraline (ZOLOFT) 100 mg tablet Take 1 tablet by mouth Daily. 0 spironolactone (ALDACTONE) 50 mg tablet Take 1 tablet by mouth Daily. 1 No current facility-administered medications for this visit. She reports that she has been smoking Cigarettes. She has a 3.75 pack-year smoking histor y. She has never used smokeless tobacco. She reports that she does not drink alcohol or use drugs. Allergies Allergen Reactions Bupropion Not Noted Gets angry Codeine Not Noted Ondansetron Not Noted Anxiety Tramadol Not Noted Intolerance No active intolerances/contraindications ROS Objective: BP 100/63 | Pulse 101 | Temp 37.1 C (98.7 F) (Temporal) | Ht 1.524 m (5') | Wt 62 k g (136 lb 11 oz) | LMP 02/12/2018 (Within Days) | SpO2 97% | ? No | BMI 26. 69 kg/m Physical Exam Patient i s alert and appropriate. She does have a rather productive sounding cough. She is not short of breath and is able to speak in full sentences. The lungs are clear to auscu ltation with good air movement and no rales rhonchi or wheezes. No results found for this or any previous visit (from the past 24 hour(s)). Assessment/Plan: Nataly was seen today for nasal congestion. Diagnoses and all orders for this visit: Acute bronchitis, unspecified organism Upper respiratory tract infection, unspecified type Other orders - promethazine-codeine (PHENERGAN WITH CODEINE) 6.25-10 mg/5 mL syrup; Take 5 mLs by mo uth 4 times daily as needed for Cough. Return if symptoms worsen or fail to improve.Electronically signed by MD chas Cannon 02/26/2018 3:36 PM PDTdocumented in this encounter Plan of Treatment Not on filedocumented as of this encounter Visit Diagnoses + + | Diagnosis | + + | Acute bronchitis, unspecified organism - Primary | + + | Upper respiratory tract infection, unspecified type | + + documented in this encounter"
--- OUTSIDE RECORDS SUMMARY | ~2020-01-13 | XMS | Encounter Summary ---
Demographics + + + | Address | [address] | | | [place] [address] | + + + | Home Phone | | + + + | Preferred Language | Unknown | + + + | Marital Status | Single | + + + | Adventism Affiliation | [id number] | + + + | Race | Unknown | + + + | Ethnic Group | Unknown | + + + Author + + + | Author | Located Within [facility] | | | and [place] | + + + | Organization | Located Within [facility] [...] | Specialty | Physical | Diagnoses | Oniel Sanford Bird, | | | Services | Therapy [...] | | | | | with | [address] | [place] [address] | | | | | cervical rib | Phone: | Phone: | | | | | | [phone] | [phone] | | | | | | Fax: | Fax: | | | | | | [phone] | [phone] | +--------+ + + + + + Reason for Visit + + + | Reason | Comments | + + + | Neck Pain | | + + + | MRI Recommendation | | + + + Encounter Details +--------+---------+ + + + | Date | Type | Department | Care Team | Description | +--------+---------+ + + + | 08/10/ | Office | [facility] | Katy Sanford MD | Thoracic outlet | | 2018 | Visit | [facility] | [address] | syndrome associated | | | | [address] | [place], [place] | with cervical rib | | | | [place], [place] | [address] | (Primary Dx); | | | | [address] | | Anxiety with | | | | [phone] | | depression; Need for | | | | | | influenza | | | | | | vaccination; Need | | | | | | for 23-polyvalent | | | | | | pneumococcal | | | | | | polysaccharide | | | | | | vaccine; Smoker | +--------+---------+ + + + Social History [...] + + + | Blood Pressure | 102/62 | 08/10/2018 8:02 AM | | | | | PST | | + + + + + | Pulse | 89 | 08/10/2018 8:02 AM | | | | | PST | | + + + + + | Temperature | 36.1 C (97 F) | 08/10/2018 8:02 AM | | | | | PST | | + + + + + | Respiratory Rate | 16 | 08/10/2018 8:02 AM | | | | | PST | | + + + + + | Oxygen Saturation | 98% | 08/10/2018 8:02 AM | | | | | PST | | + + + + + | Inhaled Oxygen | - | - | | | Concentration | | | | + + + + + | Weight | 60 kg (132 lb 4.4 | 08/10/2018 8:02 AM | | | | oz) | PST | | + + + + + | Height | 152.4 cm (5') | 08/10/2018 8:02 AM | | | | | PST | | + + + + + | Body Mass Index | 25.83 | 08/10/2018 8:02 AM | | | | | PST | | + + + + + documented in this encounter Patient Instructions Patient Instructions Windy Alvarado RN - 08/10/2018 8:35 AM PST Return in about 2 months (around 10/11/2018) for anxiety. If you have any questions, please c all us [phone]. Appointment reminders by text: Do you have an upcoming appointment? Receive a test reminder! Text the word HEALTH to [phone] to opt. in and ask our front end mechanic for more information blake carballo your visit today. *Standard message and data rates may apply Referral for Neurology is ready for you. Dr. Addison. [phone]. Mental Health Referrals: Please choose and then contact your insurance regarding coverage for any of the provided pr oviders or facilities listed below: Alexandra Casas, CONSTRUCTION SALES REPRESENTATIVE: [phone]. Not taking new clients, can be put on a waiting list . Madeleine Calhoun MA: [phone] Estephania Serrato: [phone] Pam Gomez, PhD: [phone] Dr. Ankush Chao: [phone] Antelmo Cortez, [facility]: [phone] Peter Stanley, CONSTRUCTION SALES REPRESENTATIVE: [phone] Allyson Rios, [facility]: [phone]. [facility]. "[facility]" Brian Vale [phone] Madyson Macedo: [phone] [facility] [place]: [phone] Eva Moore, CONSTRUCTION SALES REPRESENTATIVE: [phone] Cindy Manning: [phone]. [facility] Mental [facility]: [phone] Referrals: During your office today we have ordered referrals for you -Physical Therapy-. The referral will be reviewed by our Insurance Authorization Coordinators. Once approved the order will be sent to the referred providers office. The referred providers office will contact you to schedule. If you have not heard to schedule your referral/s within 10 business days, please call our Referral Business Process Associate at [phone] to check on the status of the referral authoriza timiriam. Prescription Refill Notice: All prescription refill requests should be made through your pharmacy. Please allow 24-48 business hours to process refill requests. No early refills will be given for controlled substances. Cancellation/Re-Scheduling/Late Arrivals: Please arrive 15 minutes prior to your scheduled appointment time. Arrivals beyond 10-15 mi nutes late will be considered a "no-show" and you may be asked to reschedule. Please notify this office 24 hours prior to cancellation or re-scheduling of your appointme nt. Treating Anxiety Disorders with Medicine An anxiety disorder can make you feel nervous or apprehensive,even without a clearreaso n. In people age 65 and older, generalized anxiety disorder is one of the most commonly diag nosed anxiety disorders.Many times it occurs with depression. Certain anxiety disorders ca n cause intense feelings of fear or panic. You may even havephysical symptoms such as a ra cing heartbeat, sweating, or dizziness. If you have these feelings, you don t have to suff er anymore. Treatment to help you overcome your fears will likely include therapy (also call ed counseling). Medicine may also be prescribed to help control your symptoms. Medicines Certain medicines may be prescribed to help control your symptoms. So you may feel less anx ious. You may also feel able to move forward with therapy. At first, medicines and dosages m ay need to be adjusted to find what works best for you. Try to be patient. Tell your health are provider how a medicine makes you feel. This way, you can work together to find the eduardo tment that s best for you. Keep in mind that medicines can have side effects. Talk with yo provider about any side effects that are bothering you. Changing the dose or type of medi cine may help. Don t stop taking medicine on your own. That can cause symptoms to come margo k. Anti-anxiety medicine. This medicine eases symptoms and helps you relax. Your healthcare provider will explain when and how to use it. It may be prescribed for use before situation s that make you anxious. You may also be told to take medicine on a regular schedule. Anti-a nxiety medicine may make you feel a little sleepy or out of it. Don t drive a car or operate machinery while on this medicine, until you know how it affects you. Caution Never use alcohol or other drugs with anti-anxiety medicines. This could result in loss of muscular control, sedation, coma, or . Also, use only the amount of medicine prescribed for you. If you think you may have taken too much, get emergency care right away. Antidepressant medicine. This kind of medicine is often used to treat anxiety, even if y ou aren t depressed. An antidepressant helps balance out brain chemicals. This helps keep anxiety under control. This medicine is taken on a schedule. It takes a few weeks to start w orking. If you don t notice a change at first, you may just need more time. But if you don t notice results after the first few weeks, tell your provider. Keep taking medicines as prescribed Never change your dosage, share or use another person's medicine, or stop taking your medic tameka without talking to your healthcare provider first. Keep the following in mind: Some medicines must be taken on a schedule. Make this part of your daily routine. For in stance, always take your pill before brushing your teeth. A pillbox can help you remember if you ve taken your medicine each day. Medicines are often taken for6 to 12 months. Your healthcare provider will then evalua te whether you need to stay on them. Many people who have also had therapy may no longer nee d medicine to manage anxiety. You may need to stop taking medicine slowly to give your body time to adjust. When it s time to stop, your healthcare provider will tell you more. Remember: Never stop taking you r medicine without talking to your provider first. If symptoms return, you may need to start taking medicines again. This isn t your faul t. It s just the nature of your anxiety disorder. Special concerns Side effects.Medicines may cause side effects. Ask your healthcare provider or pharmac ist what you can expect. They may have ideas for avoiding some side effects. Sexual problems. Some antidepressants can affect your desire for sex or your ability to have an orgasm. A change in dosage or medicine often solves the problem. If you have a sexua l side effect that concerns you, tell your healthcare provider. Addiction. If you ve never had a problem with drugs or alcohol, you may not have a pro blem with medicines used to treat anxiety disorders. But always discuss the medicines with y our healthcare provider before taking them. If you have a history of addiction, you may not be able to use certain medicines used to treat anxiety disorders. Medicine interactions. Always check with your pharmacist before using any tlqb-hxj-qoxra er medicines, including herbal supplements. Date Last Reviewed: 01/02/201719992783-9601 [employer]. [address] [place] [address], [place] [address]. All righ ts reserved. This information is not intended as a substitute for professional medical care. Always follow your healthcare professional's instructions. Treating Anxiety Disorders with Therapy If you have an anxiety disorder, you don t have to suffer anymore. Treatment is available . Therapy (also called counseling) is often a helpful treatment for anxiety disorders. With therapy, a specially trained professional (therapist) helps you face and learn to manage you r anxiety. Therapy can be short-term or long-term depending on your needs. In some cases, me dicine may also be prescribed with therapy. It may take time before you notice how much ther apy is helping, but stick with it. With therapy, you can feel better. Cognitive behavioral therapy (CBT) Cognitive behavioral therapy (CBT) teaches you to manage anxiety. It does this by helping y ou understand how you think and act when you re anxious. Research has shown CBT to be a ve ry effective treatment for anxiety disorders. How CBT is run is almost like a class. It invo lves homework and activities to build skills that teach you to cope with anxiety step by tawanna p. It can be done in a group or one-on-one, and often takes place for a set number of sessio ns. CBT has two main parts: Cognitive therapyhelps you identify the negative, irrational thoughts that occur with your anxiety. You ll learn to replace these with more positive, realistic thoughts. Behavioral therapyhelps you change how you react to anxiety. You ll learn coping ski lls and methods for relaxing to help you better deal with anxiety. Other forms of therapy Other therapy methods may work better for you than CBT. Or, you may move from CBT to anothe r form of therapy as your treatment needs change. This may mean meeting with a therapist by yourself or in a group. Therapy can also help you work through problems in your life, such a s drug or alcohol dependence, that may be making your anxiety worse. Getting better takes time Therapy will help you feel better and teach you skills to help manage anxiety terminal gauger supervisor. Bu t change doesn t happen right away. It takes a commitment from you. And treatment only wor ks if you learn to face the causes of your anxiety. So, you might feel worse before you feel better. This can sometimes make it hard to stick with it. But remember: Therapy is a very e ffective treatment. The results will be well worth it. Helping yourself If anxiety is wearing you down, here are some things you can do to cope: Check with your doctor and rule out any physical problems that may be causing the anxiet y symptoms. If an anxiety disorder is diagnosed, seek mental healthcare. This is an illness and it c an respond to treatment. Most types of anxiety disorders will respond to talk therapy and me alcantar. Educate yourself about anxiety disorders. Keep track of helpful online resources and reese ks you can use during stressful periods. Try stress management techniques such as meditation. Consider online or in-person support groups. Don t fight your feelings. Anxiety feeds itself. The more you worry about it, the wors e it gets. Instead, try to identify what might have triggered your anxiety. Then try to put this threat in perspective. Keep in mind that you can t control everything about a situation. Change what you can and let the rest take its course. Exercise it s a great way to relieve tension and help your body feel relaxed. Examine your life for stress, and try to find ways to reduce it. Avoid caffeine and nicotine, which can make anxiety symptoms worse. Fight the temptation to turn to alcohol or unprescribed drugs for relief. They only make things worse in the long run. Date Last Reviewed: 09/04/201619998182-0310 [employer]. [address] [place] [address], [place] [address]. All righ ts reserved. This information is not intended as a substitute for professional medical care. Always follow your healthcare professional's instructions. Treating Anxiety Disorders with Medicine An anxiety disorder can make you feel nervous or apprehensive,even without a clearreaso n. In people age 65 and older, generalized anxiety disorder is one of the most commonly diag nosed anxiety disorders.Many times it occurs with depression. Certain anxiety disorders ca n cause intense feelings of fear or panic. You may even havephysical symptoms such as a ra cing heartbeat, sweating, or dizziness. If you have these feelings, you don t have to suff er anymore. Treatment to help you overcome your fears will likely include therapy (also call ed counseling). Medicine may also be prescribed to help control your symptoms. Medicines Certain medicines may be prescribed to help control your symptoms. So you may feel less anx ious. You may also feel able to move forward with therapy. At first, medicines and dosages m ay need to be adjusted to find what works best for you. Try to be patient. Tell your healthc are provider how a medicine makes you feel. This way, you can work together to find the eduardo tment that s best for you. Keep in mind that medicines can have side effects. Talk with yo provider about any side effects that are bothering you. Changing the dose or type of medi cine may help. Don t stop taking medicine on your own. That can cause symptoms to come margo k. Anti-anxiety medicine. This medicine eases symptoms and helps you relax. Your healthcare provider will explain when and how to use it. It may be prescribed for use before situation s that make you anxious. You may also be told to take medicine on a regular schedule. Anti-a nxiety medicine may make you feel a little sleepy or out of it. Don t drive a car or operate machinery while on this medicine, until you know how it affects you. Caution Never use alcohol or other drugs with anti-anxiety medicines. This could result in loss of muscular control, sedation, coma, or . Also, use only the amount of medicine prescribed for you. If you think you may have taken too much, get emergency care right away. Antidepressant medicine. This kind of medicine is often used to treat anxiety, even if y ou aren t depressed. An antidepressant helps balance out brain chemicals. This helps keep anxiety under control. This medicine is taken on a schedule. It takes a few weeks to start w orking. If you don t notice a change at first, you may just need more time. But if you don t notice results after the first few weeks, tell your provider. Keep taking medicines as prescribed Never change your dosage, share or use another person's medicine, or stop taking your medic tameka without talking to your healthcare provider first. Keep the following in mind: Some medicines must be taken on a schedule. Make this part of your daily routine. For in stance, always take your pill before brushing your teeth. A pillbox can help you remember if you ve taken your medicine each day. Medicines are often taken for6 to 12 months. Your healthcare provider will then evalua te whether you need to stay on them. Many people who have also had therapy may no longer nee d medicine to manage anxiety. You may need to stop taking medicine slowly to give your body time to adjust. When it s time to stop, your healthcare provider will tell you more. Remember: Never stop taking you r medicine without talking to your provider first. If symptoms return, you may need to start taking medicines again. This isn t your faul t. It s just the nature of your anxiety disorder. Special concerns Side effects.Medicines may cause side effects. Ask your healthcare provider or pharmac ist what you can expect. They may have ideas for avoiding some side effects. Sexual problems. Some antidepressants can affect your desire for sex or your ability to have an orgasm. A change in dosage or medicine often solves the problem. If you have a sexua l side effect that concerns you, tell your healthcare provider. Addiction. If you ve never had a problem with drugs or alcohol, you may not have a pro blem with medicines used to treat anxiety disorders. But always discuss the medicines with y our healthcare provider before taking them. If you have a history of addiction, you may not be able to use certain medicines used to treat anxiety disorders. Medicine interactions. Always check with your pharmacist before using any cpnd-vmu-otnut er medicines, including herbal supplements. Date Last Reviewed: 01/02/201719992295-6996 [employer]. [address] [place] [address]. All righ ts reserved. This information is not intended as a substitute for professional medical care. Always follow your healthcare professional's instructions. documented in this encounter Progress Notes Katy Sanford MD - 08/10/2018 8:00 AM PST Subjective: Patient ID: Nataly Martinez is a 38 y.o. female. Chief Complaint Patient presents with Neck Pain MRI Recommendation HPI Patient presents in clinic today to discuss MRI. On 03/05/18 I had ordered a Cervical Spine MRI but this was denied by her insurance because they needed us to provide 6 weeks of physi bobbi therapy or conservitive management to be done prior to having MRI done. She reports that her sister is had MRI done and she had the same insurance... We explained that she can call her insurance and talk to them about it. She reports that she is having increased anxiety and depression which causes her muscle to tense up and then she reports that she is experiencing more pain. She is currently on Zoloft 100 mg tablets daily. She reports that she has had extra stress the last couple months valerie use the father of her children was deported and she reports she is no longer getting child s upport. She reports that in the past she had taken clonazepam 1 mg tablet which seemed to he lp. She continues to smoke 1/2 PPD and THC nightly. PHQ9 SCORE Office Visit from 08/10/2018 in [facility] Office Visit from 2017 in [facility] PHQ-9 Total Score (Patient Health Questionnaire) 15 8 ANXIETY/STRESS SCORE Office Visit from 08/10/2018 in [facility] SILAS-7 Score (General Anxiety Disorder) 19 Note placed in Referral for Denied MRI from 04/13/2018 General 04/13/2018 1058 Reta Arvizu 2017-04/13??>PENDING [facility], REF # [id number] - Note PENDING- [facility], REF # [id number] Update - Scheduling Minimum Data Set | Update Description: UPLOADED CLINICAL INFORMATION ON [employer] WEBSITE. PER [employer] RESPONSE, "In order to process this case, please provide six weeks of recent ph ysician directed treatment with a follow up evaluation related to this MRI cervical spine wi thout contrast request. Please provide the above along with current clinical office notes so that the medical necessity review process can be completed. | Additional Contact Info: [facility] TEL: [phone]/ FAX: [phone] Past Medical History: Diagnosis Date Abrasion of [...] 3 times daily. Prn 60 tablet 0 busPIRone (BUSPAR) 10 MG tablet Take 1 tablet by mouth 3 times daily as needed. 90 tabl et 1 cetirizine (ZYRTEC) 10 mg tablet Take 1 tablet by mouth Daily. 1 fluticasone (FLONASE) 50 mcg/nasal spray 1 spray by Nasal route Daily. 16 g 2 gabapentin (NEURONTIN) 800 MG tablet Take 1 tablet by mouth 3 times daily. And an addit ional 1.5 tablets at bedtime 90 tablet 5 ibuprofen (ADVIL,MOTRIN) 600 MG tablet take 1 [...] for this visit. Review of Systems Constitutional: Negative. Negative for fever and malaise/fatigue. HENT: Negative. Negative for congestion, ear discharge, ear pain, sinus pain, sore throat and tinnitus. Eyes: Negative. Negative for blurred vision and pain. Respiratory: Negative. Negative for cough and shortness of breath. Cardiovascular: Negative. Negative for chest pain, palpitations and leg swelling. Gastrointestinal: Negative. Negative for abdominal pain, constipation, diarrhea, heartburn , nausea and vomiting. Genitourinary: Negative. Negative for dysuria. Musculoskeletal: Positive for back pain, myalgias and neck pain. Negative for joint pain. Skin: Negative. Negative for rash. Neurological: Negative. Negative for dizziness, tingling, weakness and headaches. Psychiatric/Behavioral: Negative. Negative for depression. The patient is not nervous/anxi ous and does not have insomnia. Objective: BP 102/62 | Pulse 89 | Temp 36.1 C (97 F) (Temporal) | Resp 16 | Ht 1.524 m (5') | Wt 60 kg (132 lb 4.4 oz) | LMP 07/20/2018 (Within Days) | SpO2 98% | ? No | BMI 25.83 kg/m Physical Exam General Appearance: Alert, cooperative, no distress, appears stated age Head: Normocephalic, without obvious abnormality, atraumatic Eyes: PERRL, conjunctiva/corneas clear, EOM's intact Nose: Nares normal, septum midline, mucosa normal, no drainage or sinus tenderness Throat: Lips, mucosa, and tongue normal; teeth and gums normal Neck: Supple, symmetrical, no adenopathy Lungs: No [...] nodes normal Neurologic: Gait normal Assessment/Plan: 1. 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 Orders: - AMB Ref to [facility] 2. Anxiety with depression Assessment & Plan: We are providing her with a list of mental health counselors for her to call and make an ap pointment according to her insurance coverage. Discussed that cognitive behavioral therapy could be as beneficial as medication and both c ombined even better. Will start BuSpar 10 mg 3 times a day and continue sertraline 100 mg. I explained to her that I would like a psychiatric consultation if this doesn't work becaus e of the use of marijuana I would like not to prescribe controlled substances. Orders: - BusPIRone HCl; Take 1 tablet by mouth 3 times daily as needed. Dispense: 90 tablet; Refill: 1 3. Need for influenza vaccination - Influenza PF 3yr or >,Quad PSKT or Vial 4. Need for 23-polyvalent pneumococcal polysaccharide vaccine - Pneumococcal polysaccharide vaccine 23-valent greater than or equal to 2yo subcutaneo us/IM 5. Smoker Overview: 1/2 PPD for 17 years Assessment & Plan: Smoking cessation encouraged. The patient was satisfied with the care received and voiced understanding of the issues dis cussed and the plan. Return in about 2 months (around 10/11/2018) for anxiety. Electronically signed by Katy Sanford MD Portions of this report were transcribed using [employer] voice recognition soft hunter. Although effort was made in correcting the errors; grammatical and sound alike errors may still be present. documented in this enc ounter Plan of Treatment + + +--------+ + + | Name | Type | Priori | Associated Diagnoses | Order Schedule | | | | ty | | | + + +--------+ + + | Referral to [facility] | Outpatient | Routin | Thoracic outlet | Ordered: 08/10/2018 | | [place] [facility] | Referral | e | syndrome associated | | | [place] | | | with cervical rib | | + + +--------+ + + documented as of this encounter Visit Diagnoses + + | Diagnosis | + + | Thoracic outlet syndrome associated with cervical rib - Primary | + + | Anxiety with depression | + + | Need for influenza vaccination Need for prophylactic vaccination and inoculation | | against influenza | + + | Need for 23-polyvalent pneumococcal polysaccharide vaccine | + + | Smoker Tobacco use disorder | + + documented in this encounter
--- OUTSIDE RECORDS SUMMARY | ~2020-01-13 | XMS | Encounter Summary ---
Demographics + + + | Address | [address] | | | [place] [address] | + + + | Home Phone [...] + + + | Author | [facility] | + + + | Organization | [facility] | + + + | Address | Unknown | + + + | Phone | Unavailable | + + + Support + + +---------+ + | Name | Relationship | Address | Phone | + + +---------+ + | Radha Soria | ECON | Unknown | | + + +---------+ + Care Team Providers + +------+ + | Care Aquaculture Worker Name | Role | Phone | + +------+ + | No Pcp Per Patient | PCP | Unavailable | + +------+ + Reason for Referral Physical Therapy (Routine) +--------+--------+ + + + + | Status | Reason | Specialty | Diagnoses / | Referred By | Referred To | | | | | Procedures | Contact | Contact | +--------+--------+ + + + + | Closed | | Physical | Diagnoses | Viola | Eugenio [facility] | | | | Therapy | History of | MD Macy | [address] | | | | | thoracic | [address] | | | | | outlet | [place] | Mailcode: | | | | | syndrome | Jaycee Soto | [facility] | | | | | Procedures | [place], [place] | for Health | | | | | PHYSICAL | [address] | and Healing, | | | | | THERAPY | Phone: | Building [address], | | | | | REFERRAL | [phone] | [address] | | | | | | Fax: | [place], [place] | | | | | | [phone] | [address] | | | | | | | Phone: | | | | | | | [phone] | | | | | | | Fax: | | | | | | | [phone] | +--------+--------+ + + + + Reason for Visit + + + | Reason | Comments | + + + | Multiple Complaints | FB in arm | + + + AUTH/CERT +--------+--------+ + [...] + + | 12/10/ | Emergency | [facility] Emergency | Macy Rod, | | | 2019 | | Department [address] | [address] | | | | | [place] [facility] | [facility] | | | | | [facility] | [place], [place] | | | | | [place], [place] | [address] | | | | | [address] | [phone] | | | | | [phone] | | | +--------+ + + + [...] + + + | Blood Pressure | 125/79 | 12/11/2019 11:28 AM | | | | | PDT | | + + + + + | Pulse | 120 | 12/11/2019 11:28 AM | | | | | PDT | | + + + + + | Temperature | 36.6 C (97.9 F) | 12/11/2019 11:29 AM | | | | | PDT | | + + + + + | Respiratory Rate | 16 | 12/11/2019 11:29 AM | | | | | PDT | | + + + + + | Oxygen Saturation | 100% | 12/11/2019 11:28 AM | | | | | PDT [...] documented in this encounter Discharge Instructions Instructions Macy Rod MD - 12/11/2019Thank you for coming to the [facility] Emergency De partment today for evaluation. Please carefully review your discharge instructions for [facility] about continuing your care at home. You were seen for multiple complaints. On examination, you had evidence of a small abscess on your right arm that was drained. Your other complaints could be related to your thoracic outlet syndrome. I reviewed your recent imaging and did no see any evidence of a metallic fo reign body. I placed a referral for you to follow up with physical therapy. We are reassured that you did not likely require surgery or hospitalization at this time. We recommend you follow up with your Primary Care Provider in the next few days. Please bobbi l your physician in the next 24 hours to schedule the next available appointment. Please return to the [facility] Emergency Department if you experience any sudden or concerning c hanges to your health, including but not limited to increased redness/pain/swelling or high fevers that do not respond to tylenol. We are always available so please return to the Emergency Department immediately if you dev elop any new or worsening symptoms. Thank you again for coming to [facility]. We hope you feel better soon! 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 (Afghan)Abscess: Skin (Afghan)Thoracic Outlet Syndr ome: Exercises (Afghan)Thoracic Outlet Syndrome: General Info (Afghan)documented in this e ncounter Medications at Time of Discharge + + [...] this encounter Results ED INFORMATION EXCHANGE (12/11/2019 11:20 AM PDT) + + | Specimen | + + | | + + + + + | Narrative | Performed At | + + + | [facility]?NOTIFICATION?12/11/2019 11:19?NATALY BEDOYA?MRN: | [facility] | | [id number] Criteria Met 3 Facilities In 60 Days 5 Visits | MEDICAL | | In 12 Months Has Guidelines PDMP Security and Safety No | [employer] | | recent Security Events currently on file ED Care Guidelines from | | | [facility] Last Updated: 12/11/19 10:08 AM Care | | | Recommendation: Receiving mental health services through [facility]. | | | Please contact [facility] for any mental health concerns: [place] | | | [phone] [place] [phone] Crisis Line [phone] These | | | are guidelines and [...] E.D. Visit Count (12 mo.) Facility Visits [facility] 1 | | | [facility] 1 [facility] | | | [place] 3 [facility] 11 Total 16 Note: | | | Visits indicate total known visits. Recent Emergency Department | | | Visit Summary Showing 10 most recent visits out of 17 in the past 12 | | | months Date Facility [facility] [place] Type Diagnoses or Chief Complaint | | | Dec 11, 2019 [facility] [place] Emergency | | | 10,800. Infection Dec 08, 2019 [facility] [place] | | | [place] Emergency Spasms Other stimulant abuse, uncomplicated | | | Other problems related to lifestyle Dec 08, 2019 [place] | | | [place]. [place] Emergency Hallucinations Other | | | stimulant abuse, uncomplicated Dec 06, 2019 [facility] | | | [place]. [place] Emergency Medical Complacations from alc and | | | drug abuse Spasms Other stimulant abuse, uncomplicated | | | Dec 01, 2019 [facility] Emergency | | | CP,sob Pain Tachycardia Restlessness and agitation | | | Other stimulant use, unspecified with intoxication, unspecifi | | | Panic disorder [episodic paroxysmal anxiety] Nov 20, 2019 | | | [facility] Emergency needle stuck in | | | arm Foreign Body in Skin Other injury of unspecified body | | | region, initial encounter Nov 16, 2019 [facility] | | | [facility] Emergency Pruritis Adverse effect of | | | unspecified drugs, medicaments and biologic Pruritus, | | | unspecified Urticaria, unspecified Nov 16, 2019 [facility] | | | [facility] Emergency Arm Injury Superficial | | | foreign body of left upper arm, initial encounter Contact with | | | needle (sewing), initial encounter Encounter for immunization | | | Nov 15, 2019 [facility]. [place] Emergency FB | | | STUCK IN ARM Other psychoactive substance use, unspecified, | | | uncomplicated Other injury of unspecified body region, initial | | | encounter Oct 17, 2019 [facility] | | | Emergency Medical Problem (Minor) Alcohol use, | | | unspecified with intoxication, uncomplicated Recent | | | Inpatient Visit Summary No recorded inpatient visits. Care Team | | | Provider Specialty Phone Fax Service Dates Giancarlo Quarles | | | Saji [facility] Community Health Worker Nov 16, 2019 | | | - Current Collect[facility] Portal This patient has registered at | | | the [facility] and [facility] [place] Emergency Department For | | | more information visit: | | | [email or web address] | | | [email or web address] PLEASE NOTE: 1. Any care recommendations [...] | or completeness of information provided. ? 2019 [employer] | | | [employer]. - [email or web address] | | + + + + + | Procedure Note | + + | Service Account, Rtf Results Inbound - 12/11/2019 11:22 AM PDT Formatting of this | | note might be different from the original.COLLECTIVE?NOTIFICATION?12/11/2019 | | 11:19?NATALY BEDOYA? Met 3 Facilities In 60 Days 5 Visits In 12 | | Months Has Guidelines PDMPSecurity and SafetyNo recent Security Events currently on | | fileED Care Guidelines from [facility] Updated: 12/11/19 10:08 AM Care | | Recommendation:Receiving mental health services through [facility]. Please contact | | [facility] for any mental health concerns:[place] [phone] | | [phone] Line [phone] are guidelines and the provider should | [...] 0 E.D. Visit Count (12 mo.)Facility Visits [facility] 1 [facility] | [facility] 1 [facility] 3 [facility] | | Center 11 Total 16 Note: Visits indicate total known visits. Recent Emergency | | Department Visit SummaryShowing 10 most recent visits out of 17 in the past 12 | | monthsDate Facility City State Type Diagnoses or Chief Complaint Dec 11, 2019 [place] | | [facility] [place] Emergency 10,800. Infection Dec 08, 2019 | | [facility] [place]. [place] Emergency Spasms Other stimulant abuse, | | uncomplicated Other problems related to lifestyle Dec 08, 2019 [facility] | | [place]. [place] Emergency Hallucinations Other stimulant abuse, uncomplicated Dec | | 2019 [facility] DenysCristóbal [place]. [place] Emergency Medical Complacations from alc | | and drug abuse Spasms Other stimulant abuse, uncomplicated Dec 01, 2019 | | [facility] [place]. [place] Emergency CP,sob Pain Tachycardia | | Restlessness and agitation Other stimulant use, unspecified with intoxication, | | unspecifi Panic disorder [episodic paroxysmal anxiety] Nov 20, 2019 [facility] | [place]. [place] Emergency needle stuck in arm Foreign Body in Skin Other | | injury of unspecified body region, initial encounter Nov 16, 2019 [facility] Osmin | | [place]. [place] Emergency Pruritis Adverse effect of unspecified drugs, medicaments and | | biologic Pruritus, unspecified Urticaria, unspecified Nov 16, 2019 [facility] | | [facility] [place]. [place] Emergency Arm Injury Superficial foreign body of left | | upper arm, initial encounter Contact with needle (sewing), initial encounter | | Encounter for immunization Nov 15, 2019 [facility] [place]. [place] Emergency FB | | STUCK IN ARM Other psychoactive substance use, unspecified, uncomplicated Other | | injury of unspecified body region, initial encounter Oct 17, 2019 [facility] | | [place] Emergency Medical Problem (Minor) Alcohol use, unspecified with | | intoxication, uncomplicated Recent Inpatient Visit SummaryNo recorded inpatient visits. | | Care TeamProvider Specialty Phone Fax Service Dates Giancarlo Quarles -, [facility] | | Community Health Worker Nov 16, 2019 - Current Leotus PortalThis | | patient has registered at the [facility] Emergency Department | | For more information visit: | | [email or web address] PLEASE | | NOTE: 1. Any care [...] completeness of information | | provided.? 2020 [employer]. - [email or web address] | |[facility] 1 | |[facility] 1 | |[facility] 3 | |[facility] 11 | |Total 16 | |Note: Visits indicate total known visits. | | | |Recent Emergency Department Visit Summary | |Showing 10 most recent visits out of 17 in the past 12 months | |Date Facility City State Type Diagnoses or Chief Complaint | |Dec 11, 2019 [facility] [place] Emergency | | 10,800. Infection | | | |Dec 08, 2019 [facility]. [place] Emergency | | Spasms | | Other stimulant abuse, uncomplicated | | Other problems related to lifestyle | | | |Dec 08, 2019 [facility]. [place] Emergency | | Hallucinations | | Other stimulant abuse, uncomplicated | | | |Dec 06, 2019 [facility]. [place] Emergency | | Medical Complacations from alc and drug abuse | | Spasms | | Other stimulant abuse, uncomplicated | | | |Dec 01, 2019 [facility]. [place] Emergency | | CP,sob | | Pain | | Tachycardia | | Restlessness and agitation | | Other stimulant use, unspecified with intoxication, unspecifi | | Panic disorder [episodic paroxysmal anxiety] | | | |Nov 20, 2019 [facility]. [place] Emergency | | needle stuck in arm | | Foreign Body in Skin | | Other injury of unspecified body region, initial encounter | | | |Nov 16, 2019 [facility]. [place] Emergency | | Pruritis | | Adverse effect of unspecified drugs, medicaments and biologic | | Pruritus, unspecified | | Urticaria, unspecified | | | |Nov 16, 2019 [facility] Emergency | | Arm Injury | | Superficial foreign body of left upper arm, initial encounter | | Contact with needle (sewing), initial encounter | | Encounter for immunization | | | |Nov 15, 2019 [facility]. [place] Emergency | | FB STUCK IN ARM | | Other psychoactive substance use, unspecified, uncomplicated | | Other injury of unspecified body region, initial encounter | | | |Oct 17, 2019 [facility]. [place] Emergency | | Medical Problem (Minor) | | Alcohol use, unspecified with intoxication, uncomplicated | | | | | | | |Recent Inpatient Visit Summary | |No recorded inpatient visits. | | | |Care Team | |Provider Specialty Phone Fax Service Dates | |Giancarlo Quarles - [facility] Community Health Worker Nov 16, 2019 - Mickie donnelly | | | |Collective Portal | |This patient has registered at the [facility] Emergency Departmen t | |For more information visit: [email or web address] | |PLEASE NOTE: | | 1. Any care recommendations and other clinical information are provided as guidelines or for historical purposes only, and providers should exercise their own clinical judgment whe n providing care. | | 2. You may only use this information for purposes of treatment, payment or health care o perations activities, and subject to the limitations of applicable Collective Policies. | | 3. You should consult directly with the organization that provided a care guideline or o ther clinical history with any questions about additional information or accuracy or complet eness of information provided. | | | |? 2020 [employer]. 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 | | sympathomimetic abuse, unspecified | + + | Paresthesias Disturbance of skin sensation | + + | History of thoracic outlet syndrome Personal history of other disorders of nervous | | system and sense organs | + + documented in this encounter Administered Medications + +--------+ +--------+------+------+ | Medication Order | MAR | Action | Dose | Rate | Site | | | Action | Date | | | | + +--------+ +--------+------+------+ | lidocaine PF (XYLOCAINE MPF) 10 | Given | 12/11/19 | 100 mg | | | | mg/mL (1 %) injection 100 mg | | 20 12:50 | | | | | 100 mg (10 mL), infiltration, | | PM PDT | | | | | ONCE, 1 dose, 12/11/19 at 1245 | | | | | | + +--------+ +--------+------+------+ +---+---+ | | | +---+---+ documented in this encounter"
--- OUTSIDE RECORDS SUMMARY | ~2020-01-13 | XMS | Encounter Summary ---
Demographics + + + | Address | [address] | | | [place] [address] | + + + | Home Phone [...] | Organization | [facility] [...] Team Providers + +------+ + | Care Property Field Adjuster Name | Role | Phone | + [...] 2019 | | MED CTR CASE | [phone] | amphetamine abuse) | | | | MANAGEMENT [address] | | | | | | [place], | | | | | | [place] [address] | | | | | | [phone] | | | +--------+ + + + [...]
--- OUTSIDE RECORDS SUMMARY | ~2020-01-13 | XMS | Encounter Summary ---
Demographics + + + | Address | [address] | | | [place] [address] | + + + | Home Phone [...] | [facility] | | | and [place] [...] Team Providers + +------+ + | Care Sheet Combining Operator Name | Role | Phone | + +------+ + PCP | Unavailable | + +------+ + Encounter Details +--------+ + + + + | Date | Type | Department | Care Team | Description | +--------+ + + + + | 01/11/ | Hospital | [facility] | | | | 2009 | Encounter | [facility] EM[facility] | | | | | | CENTER [address] | | | | | | [place] | | | | | | [address] | | | | | | [phone] | | | +--------+ + + + [...]
--- OUTSIDE RECORDS SUMMARY | ~2020-01-13 | XMS | Encounter Summary ---
Demographics + + + | Address | [address] | | | [place] [address] | + + + | Home Phone | | + + + | Preferred Language | Unknown | + + + | Marital Status | Single | + + + | Jew Affiliation | 1013 | + + + | Race | Unknown | + + + | Ethnic Group | Unknown | + + + Author + + + | Author | [facility] | | | and [place] | + + + | Organization | [facility] | | | [...] Team Providers + +------+ + | Care Office Support Associate Name | Role | Phone | + +------+ + PCP | Unavailable | + +------+ + Encounter Details +--------+ + + + + | Date | Type | Department | Care Team | Description | +--------+ + + + + | 03/26/ | Hospital | [facility] | Madyson Oneill, | | | 2008 | Encounter | [address] | PA-C [address] | | | | | [place] | [address] | | | | | [facility] | [place] [address] | | | | | [address] | [phone] | | | | | [phone] | | | +--------+ + + + [...] + | US NON-OB | Routin | 03/26/2009 | | Results for this | | TRANSVAGINAL | e | 10:38 AM | | procedure are in the | | | | PDT | | results section. | + +--------+ + + + documented in this encounter Results US Non-Ob Transvaginal (03/26/2009 10:38 AM PDT) + + | Specimen | + + | | + + + + + | Narrative | Performed At | + + + | [id number] | | | Page 1 Diagnostic Note | | | / | | | [facility] | | | NAME: NATALY BEDOYA, [place] [address] | | | | | | | | | DATE OF : 1980 ORDER NUMBER: [id number] EXAM | | | DATE/TIME: 03/26/2009 10:07 A ORDERING PHYSICIAN: MADYSON ONEILL | | | ORDER DETAIL: 1950 / / KUS EXAM DESCRIPTION: APW US | | | ENDOVAGINAL | | | | | | See diagnostics scanned report. A | | | A /rufina// cc: | | + + + + + | Procedure Note | + + | Pardeep Swanson - 04/28/2019 11:05 PM PDT | | [id number] Page 1 | | Diagnostic Note / | | APW | | [facility] NAME: NATALY BEDOYA | | [place] [address] | | | | DATE OF : 1980 | | | | ORDER NUMBER: [id number] | | EXAM DATE/TIME: 03/26/2009 10:07 A | | ORDERING PHYSICIAN: MADYSON ONEILL | | ORDER DETAIL: 1948 / / KARINA | | EXAM DESCRIPTION: APW US ENDOVAGINAL | | | | See diagnostics scanned report. | | | | | | | | | | A | | A | | /rufina// | | cc: | + + documented in this encounter Visit Diagnoses Not on filedocumented in this encounter"
--- OUTSIDE RECORDS SUMMARY | ~2020-01-13 | XMS | Encounter Summary ---
Demographics + + + | Address | [address] | | | [place] [address] | + + + | Home Phone [...] | [facility] | | | and [place] [...] Team Providers + +------+ + | Care Collar Separator Name | Role | Phone | + +------+ + PCP | Unavailable | + +------+ + Encounter Details +--------+ + + + + | Date | Type | Department | Care Team | Description | +--------+ + + + + | 06/03/ | Hospital | [facility] | Joe Lauren | [place] [facility] | | 2002 | Encounter | CONVERSION [address] | [place] [phone] | FOLLOW-UP | | | | [place] | (Fax) | | | | | [place] | | | | | | [address] | | | | | | [phone] | | | +--------+ + + + [...]
--- OUTSIDE RECORDS SUMMARY | ~2020-01-13 | XMS | Encounter Summary ---
Demographics + + + | Address | [address] | | | [place] [address] | + + + | Home Phone | | + + + | Preferred Language | Unknown | + + + | Marital Status | Single | + + + | Anabaptism Affiliation | CHR | + + + | Race | White | + + + | Ethnic Group | Not or | + + + Author + + + | Author | [facility] | + + + | Organization | [facility] | + + + | Address | Unknown | + + + | Phone | Unavailable | + + + Support + + +---------+ + | Name | Relationship | Address | Phone | + + +---------+ + | Radha Soria | ECON | Unknown | | + + +---------+ + Care Team Providers + +------+ + | Care Industrial Electrician Name | Role | Phone | + [...] + | 12/10/ | Telephone | [facility] Emergency | Mickie Gottlieb, | Pain | | 2020 | IP | Department [address] | AWNING MAKER AND INSTALLER [address] | | | | | [address] | [address] | | | | | [facility] | [place], [place] | | | | | [place], [place] | [address] | | | | | [address] | [phone] | | | | | [phone] | | | +--------+ + + + [...]
--- OUTSIDE RECORDS SUMMARY | ~2020-01-13 | XMS | Encounter Summary ---
Demographics + + + | Address | [address] | | | [place] [address] | + + + | Home Phone | | + + + | Preferred Language | Unknown | + + + | Marital Status | Single | + + + | Adventist Affiliation | 1013 | + + + | Race | Unknown | + + + | Ethnic Group | Unknown | + + + Author + + + | Author | [facility] | | | and [place] | + + + | Organization | [facility] | | | and [place] [...] Team Providers + +------+ + | Care Tile Edger Name | Role | Phone | + +------+ + PCP | Unavailable | + +------+ + Encounter Details +--------+ + + + + | Date | Type | Department | Care Team | Description | +--------+ + + + + | 06/22/ | Hospital | [facility] | Provider Not, In | Encounter for | | 2015 | Encounter | [address] | [facility] [place] | supervision of | | | | [place] | Health and Service | normal in | | | | [address] | | second trimester | | | | [phone] | | | +--------+ + + + [...] OBSTETRIC ULTRASOUND 06/22/2015 4:05 PM (PERFORMED AT [facility] | | | [facility]) CLINICAL HISTORY: Encounter for supervision of normal [...]
--- OUTSIDE RECORDS SUMMARY | ~2020-01-13 | XMS | Encounter Summary ---
Demographics + + + | Address | [address] | | | [place] [address] | + + + | Home Phone | | + + + | Preferred Language | Unknown | + + + | Marital Status | Single | + + + | Alevism Affiliation | 1013 | + + + | Race | Unknown | + + + | Ethnic Group | Unknown | + + + Author + + + | Author | [facility] | | | and [place] | + + + | Organization | [facility] | | [...] Team Providers + +------+ + | Care Dry Roller Name | Role | Phone | + +------+ + PCP | Unavailable | + +------+ + Encounter Details +--------+ + + + + | Date | Type | Department | Care Team | Description | +--------+ + + + + | 04/09/ | Hospital | [facility] | Saleem Toure, | | | 2011 | Encounter | MED CTR EMERGENCY | [address] | | | | | CENTER [address] | [facility] [place] | | | | | [place] | [place] [address] | | | | | [address] | [phone] | | | | | [phone] | | | +--------+ + + + [...]
--- OUTSIDE RECORDS SUMMARY | ~2020-01-13 | XMS | Encounter Summary ---
Demographics + + + | Address | [address] | | | [place] [address] | + + + | Home Phone [...] Author + + + | Author | [facility] | | | and [place] | + + + | Organization | [facility] | | | and [...] Team Providers + +------+ + | Care It Training Specialist Name | Role | Phone | + [...] Office | [facility] [place] [facility] | [facility] | Thoracic outlet | | 2018 | Visit | CARE [address] | Bnoilla Patricia MD | syndrome associated | | | | [place] | [address] | with cervical rib | | | | [address] | [place] | (Primary Dx) | | | | [phone] | [address] | | | | | | | [...] flow through your arm. Date Last Reviewed: 02/02/201719995797-[address] [employer] [place] [address], [place] [address]. All righ ts reserved. This information is [...] little reluctantly. This note was dictated using Front Flip voice recognition software. Occasional wrong- word or s ound-alike substitutions may have occurred due to the inherent limitations of voice recognit ion software. Please read the chart carefully and recognize, using context, where these subs titutions have occurred. 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
--- OUTSIDE RECORDS SUMMARY | ~2020-01-13 | XMS | Encounter Summary ---
Demographics + + + | Address | [address] | | | [place] [address] | + + + | Home Phone [...] + + + | Author | [facility] | | | and [place] | + + + | Organization | [facility] | | | and [...] Team Providers + +------+ + | Care Public Address Systems Mechanic Name | Role | Phone | + +------+ + PCP | Unavailable | + +------+ + Encounter Details +--------+ + + + + | Date | Type | Department | Care Team | Description | +--------+ + + + + | 10/11/ | [facility] | [facility] | Bogdan, | | | 2010 | Encounter | MED CTR EMERGENCY | Deuce Sainz MD [address] | | | | | [place] [address] | [address] [place] | | | | | [place] | [place] [address] | | | | | [address] | [phone] | | | | | [phone] | | | +--------+ + + + [...]
--- OUTSIDE RECORDS SUMMARY | ~2020-01-13 | XMS | Encounter Summary ---
Demographics + + + | Address | [address] | | | [place] [address] | + + + | Home Phone | | + + + | Preferred Language | Unknown | + + + | Marital Status | Single | + + + | Sikhism Affiliation | 1013 | + + + | Race | Unknown | + + + | Ethnic Group | Unknown | + + + Author + + + | Author | [facility] | | | and [place] | + + + | Organization | [facility] | | | and [...] Team Providers + +------+ + | Care Lead Sql Developer Name | Role | Phone | + [...] | | | | CENTER [address] | [address] [place] | | | | | [place], [place] | [place] [address] | | | | | [address] | [phone] | | | | | [phone] | | | +--------+ + + + [...] J?MRN: | | | | | | [id number] | | | [id number] | | | riteri | | | [...] | | 1 0 | | | [place] | | | | | | Health [...] | | | 2020 | | | [place] | | | | | | Health [...] | | | 2020 | | | [place] | | | | | | Health [...]
--- OUTSIDE RECORDS SUMMARY | ~2020-01-13 | XMS | Encounter Summary ---
Demographics + + + | Address | [address] | | | [place] [address] | + + + | Home Phone [...] + + + | Author | [facility] | | | and [place] | + + + | Organization | [facility] | | | and [place] [...] Team Providers + +------+ + | Care Inbound Ingredient Logistics Specialist Name | Role | Phone | [...] + + | 11/15/ | Emergency | [facility] | Osiel Barreto, | Injury due to | | 2019 | | MEDICAL CENTER | MD [address] | non-hypodermic | | | | EMERGENCY CENTER | [place] [address] | needle (Primary Dx); | | | | [address] | [phone] | Metal foreign body | | | | [place], [place] | | in upper extremity, | | | | [address] | | left, initial | | | | [phone] | | encounter; | | | | [...] Everywhere.Foreign Body, S oft Tissue (Not Removed) ([place] Islander)documented in this encounter Medications at Time of [...] J?MRN: | | | | | | [id number] | | | [id number] | | | riteri | | | [...] | +---+--------+ documented in this encounter Results FL C-Arm (11/16/2019 2:17 PM PDT) + [...] | +---+---+ + +-------+ +---------+---+ + | hijduwx-[id number]-xsdutzduw | Given | 11/16/19 | 0.5 mLs [...]
--- OUTSIDE RECORDS SUMMARY | ~2020-01-13 | XMS | Encounter Summary ---
Demographics + + + | Address | [address] | | | [place] [address] | + + + | Home Phone | | + + + | Preferred Language | Unknown | + + + | Marital Status | Single | + + + | Nondenominational Affiliation | 1013 | + + + | Race | Unknown | + + + | Ethnic Group | Unknown | + + + Author + + + | Author | [facility] | | | and [place] | + + + | Organization | [facility] | | | and [...] Team Providers + +------+ + | Care Rigging Worker Name | Role | Phone | [...] + + | 12/01/ | Telephone | [facility] | Antonia Goyal | ED Follow-up (ED f/u | | 2019 | | MED CTR CASE | [phone] | drug use, panic | | | | MANAGEMENT [address] | | attack) | | | | [place], | | | | | | [place] [address] | | | | | | [phone] | | | +--------+ + + + [...]
--- OUTSIDE RECORDS SUMMARY | ~2020-01-13 | XMS | Encounter Summary ---
Demographics + + + | Address | [address] | | | [place] [address] | + + + | Home Phone [...] + + + | Author | [facility] | | | and [place] | + + + | Organization | [facility] | [...] Team Providers + +------+ + | Care Rcis Name | Role | Phone | + +------+ + PCP | Unavailable | + +------+ + Encounter Details +--------+ + + + + | Date | Type | Department | Care Team | Description | +--------+ + + + + | 10/06/ | [facility] | [facility] | Edi Sprague | | | 2010 | Encounter | MED CTR XRAY [address] | [address] | | | | | [place] | [place] | | | | | [place] [address] | [address] | | | | | [phone] | | | +--------+ + + + [...]
--- OUTSIDE RECORDS SUMMARY | ~2020-01-13 | XMS | Encounter Summary ---
Demographics + + + | Address | [address] | | | [place] [address] | + + + | Home Phone | | + + + | Preferred Language | Unknown | + + + | Marital Status | Single | + + + | Restorationist Affiliation | CHR | + + + | Race | White | + + + | Ethnic Group | Not or | + + + Author + + + | Author | [facility] | + + + | Organization | [facility] | + + + | Address | Unknown | + + + | Phone | Unavailable | + + + Support + + +---------+ + | Name | Relationship | Address | Phone | + + +---------+ + | Radha Soria | ECON | Unknown | | + + +---------+ + Care Team Providers + +------+ + | Care Public Relations Name | Role | Phone | + [...] | | | | | Procedures | [place], [place] | for Health | | | | | PHYSICAL | [address] | and Healing, | | | | | THERAPY | Phone: | Building [address], | | | | | REFERRAL | [phone] | [address] | | | | | | Fax: | [place], [place] | | | | | | [phone] | [address] | | | | | | | Phone: | | | | | | | [phone] | | | | | | | Fax: | | | | | | | [phone] | +--------+--------+ + + + + Reason [...] + + | 12/10/ | Emergency | [facility] Emergency | Macy Rod, | | | 2019 | | Department [address] | [address] | | | | | [place] | [facility] | | | | | [facility] | [place], [place] | | | | | [place], [place] | [address] | | | | | [address] | [phone] | | | | | [phone] | | | +--------+ + + + [...] - 12/11/2019Thank you for coming to the [facility] Emergency De partment today for evaluation. Please carefully review your discharge instructions for [facility] about continuing your care at home. You [...] next available appointment. Please return to the [facility] Emergency Department if you experience any sudden or concerning c hanges to your health, including but not limited to increased redness/pain/swelling or high fevers that do not respond to tylenol. We are always available so please return to the Emergency Department immediately if you dev elop any new or worsening symptoms. Thank you again for coming to [facility]. We hope you feel better soon! 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 | | | Please contact [facility] for any mental health concerns: [place] | | | [phone] [place] [phone] Crisis Line [phone] These | | | are guidelines and [...] E.D. Visit Count (12 mo.) Facility Visits [facility] 1 | | | [facility] 1 [facility] | | | [place] 3 [facility] 11 Total 16 Note: | | | Visits indicate total known visits. Recent Emergency Department | | | Visit Summary Showing 10 most recent visits out of 17 in the past 12 | | | months Date Facility [facility] State Type Diagnoses or Chief Complaint | | | Dec 11, 2019 [facility] [place] Emergency | | | 10,800. Infection Dec 08, 2019 [facility] [place] | | | [place] Emergency Spasms Other stimulant abuse, uncomplicated | | | Other problems related to lifestyle Dec 08, 2019 [place] | | | [place]ickie [place]. [place] Emergency Hallucinations Other | | | stimulant abuse, uncomplicated Dec 06, 2019 [facility] | | | [place]. [place] Emergency Medical Complacations from alc and | | | drug abuse Spasms Other stimulant abuse, uncomplicated | | | Dec 01, 2019 [facility] Emergency | | | CP,sob Pain Tachycardia Restlessness and agitation | | | Other stimulant use, unspecified with intoxication, unspecifi | | | Panic disorder [episodic paroxysmal anxiety] Nov 20, 2019 | | | [facility] Emergency needle stuck in | | | arm Foreign Body in Skin Other injury of unspecified body | | | region, initial encounter Nov 16, 2019 [facility] | | | [facility] Emergency Pruritis Adverse effect of | | | unspecified drugs, medicaments and biologic Pruritus, | | | unspecified Urticaria, unspecified Nov 16, 2019 [facility] | | | [facility] Emergency Arm Injury Superficial | | | foreign body of left upper arm, initial encounter Contact with | | | needle (sewing), initial encounter Encounter for immunization | | | Nov 15, 2019 [facility]. [place] Emergency FB | | | STUCK IN ARM Other psychoactive substance use, unspecified, | | | uncomplicated Other injury of unspecified body region, initial | | | encounter Oct 17, 2019 [facility] | | | Emergency Medical Problem (Minor) Alcohol use, | | | unspecified with intoxication, uncomplicated Recent | | | Inpatient Visit Summary No recorded inpatient visits. Care Team | | | Provider Specialty Phone Fax Service Dates Giancarlo Quarles | | | S[facility] Community Health Worker Nov 16, 2019 | | | - Current Collective Portal This patient has registered at | | | the [facility] [place] Emergency Department For | | | more information visit: | | | [email or web address] | | | [email or web address] e PLEASE NOTE: 1. Any care recommendations [...] or completeness of information provided. ? [address] | | | [employer]. - www.[email or web address] | | + + + + + [...] on | | fileED Care Guidelines from [facility] [place] Updated: 12/11/19 10:08 AM Care | | Recommendation:Receiving mental health services through [facility]. Please contact | | [facility] for any mental health concerns:Carlo [phone] | | [phone] Line [phone] are guidelines and the provider should | [...] 0 E.D. Visit Count (12 mo.)Facility Visits [facility] 1 [facility] | [facility] 1 [facility] 3 [facility] | | Center 11 Total 16 Note: Visits indicate total known visits. Recent Emergency | | Department Visit SummaryShowing 10 most recent visits out of 17 in the past 12 | | monthsDate Facility City State Type Diagnoses or Chief Complaint Dec 11, 2019 [place] | | [facility] [place] Emergency 10,800. Infection Dec 08, 2019 | | [facility] [place]. [place] Emergency Spasms Other stimulant abuse, | | uncomplicated Other problems related to lifestyle Dec 08, 2019 [facility] | | [place] Emergency Hallucinations Other stimulant abuse, uncomplicated Dec | | 2019 [facility] [place]rist[place]bal [place]. [place] Emergency Medical Complacations from alc | | and drug abuse Spasms Other stimulant abuse, uncomplicated Dec 01, 2019 | | [facility] [place]. [place] Emergency CP,sob Pain Tachycardia | | Restlessness and agitation Other stimulant use, unspecified with intoxication, | | unspecifi Panic disorder [episodic paroxysmal anxiety] Nov 20, 2019 [facility] | [place]. [place] Emergency needle stuck in arm Foreign Body in Skin Other | | injury of unspecified body region, initial encounter Nov 16, 2019 [facility] [place] | | [place]. [place] Emergency Pruritis Adverse effect of unspecified drugs, medicaments and | | biologic Pruritus, unspecified Urticaria, unspecified Nov 16, 2019 [facility] | | [facility] [place]. [place] Emergency Arm Injury Superficial foreign body of left | | upper arm, initial encounter Contact with needle (sewing), initial encounter | | Encounter for immunization Nov 15, 2019 [facility] [place]. [place] Emergency FB | | STUCK IN ARM Other psychoactive substance use, unspecified, uncomplicated Other | | injury of unspecified body region, initial encounter Oct 17, 2019 [facility] | | [place] Emergency Medical Problem (Minor) Alcohol use, unspecified with | | intoxication, uncomplicated Recent Inpatient Visit SummaryNo recorded inpatient visits. | | Care TeamProvider Specialty Phone Fax Service Dates Giancarlo Quarles -, [facility] | | Community Health Worker Nov 16, 2019 - Current Med-T[employer] PortalThis | | patient has registered at the [facility] Emergency Department | | For more information visit: | | [email or web address] PLEASE | | NOTE: 1. Any care [...] completeness of information | | provided.? 2020 [employer]. - www.[employer] | |[facility] 1 | |[facility] 1 | |[facility] 3 | |[facility] 11 | |Total 16 | |Note: Visits indicate total known visits. | | | |Recent Emergency Department Visit Summary | |Showing 10 most recent visits out of 17 in the past 12 months | |Date Facility City State Type Diagnoses or Chief Complaint | |Dec 11, 2019 [facility] [place] Emergency | | 10,800. Infection | | | |Dec 08, 2019 [facility]. [place] Emergency | | Spasms | | Other stimulant abuse, uncomplicated | | Other problems related to lifestyle | | | |Dec 08, 2019 [facility]. [place] Emergency | | Hallucinations | | Other stimulant abuse, uncomplicated | | | |Dec 06, 2019 [facility]. [place] Emergency | | Medical Complacations from alc and drug abuse | | Spasms | | Other stimulant abuse, uncomplicated | | | |Dec 01, 2019 [facility]. [place] Emergency | | CP,sob | | Pain | | Tachycardia | | Restlessness and agitation | | Other stimulant use, unspecified with intoxication, unspecifi | | Panic disorder [episodic paroxysmal anxiety] | | | |Nov 20, 2019 [facility]. [place] Emergency | | needle stuck in arm | | Foreign Body in Skin | | Other injury of unspecified body region, initial encounter | | | |Nov 16, 2019 [facility]. [place] Emergency | | Pruritis | | Adverse effect of unspecified drugs, medicaments and biologic | | Pruritus, unspecified | | Urticaria, unspecified | | | |Nov 16, 2019 [facility] Emergency | | Arm Injury | | Superficial foreign body of left upper arm, initial encounter | | Contact with needle (sewing), initial encounter | | Encounter for immunization | | | |Nov 15, 2019 [facility]. [place] Emergency | | FB STUCK IN ARM | | Other psychoactive substance use, unspecified, uncomplicated | | Other injury of unspecified body region, initial encounter | | | |Oct 17, 2019 [facility]. [place] Emergency | | Medical Problem (Minor) | | Alcohol use, unspecified with intoxication, uncomplicated | | | | | | | |Recent Inpatient Visit Summary | |No recorded inpatient visits. | | | |Care Team | |Provider Specialty Phone Fax Service Dates | |Giancarlo Quarles - [facility] Community Health Worker Nov 16, 2019 - Mickie donnelly | | | |Collective Portal | |This patient has registered at the [facility] Emergency Departmen t | |For more information visit: [email or web address] | |PLEASE NOTE: | | 1. Any [...] information provided. | | | |? 2020 [employer]. - www.[email or web address] | + + + + + + + | Performing | Address | City/State/Zipcode | Phone Number | | Organization | | | | + + + + + | [facility] | [address] | [place], [place] | [phone] | | [employer] | [address] | [address] | | + + + + + [...]
--- OUTSIDE RECORDS SUMMARY | ~2020-01-13 | XMS | Encounter Summary ---
Demographics + + + | Address | [address] | | | [place] [address] | + + + | Home Phone | | + + + | Preferred Language | Unknown | + + + | Marital Status | Single | + + + | Congregation Affiliation | 1013 | + + + | Race | Unknown | + + + | Ethnic Group | Unknown | + + + Author + + + | Author | [facility] | | | and [place] | + + + | Organization | [facility] | | | and [place] | + [...] Team Providers + +------+ + | Care Fruit I Farmworker Name | Role | Phone | + +------+ + | No, Physician | PCP | Unavailable | + +------+ + Reason for Visit + + + | Reason | Comments | + + + | Cough | | + + + | Generalized Body | | | Aches | | + + + | Fever (9 Weeks To 74 | | | Years) | | + + + Encounter Details +--------+ + + + + | Date | Type | Department | Care Team | Description | +--------+ + + + + | 09/20/ | Emergency | [facility] | Bogdan, | Influenza (Primary | | 2017 | | MED CTR EMERGENCY | Deuce Sainz MD [address] | Dx) | | | | [facility] [address] | [facility] | | | | | [place] | [place] [address] | | | | | [address] | [phone] | | | | | [phone] | | | +--------+ + + + [...] + + + | Blood Pressure | 116/82 | 09/20/2016 9:13 AM | | | | | PST | | + + + + + | Pulse | 124 | 09/20/2016 9:13 AM | | | | | PST | | + + + + + | Temperature | 37.5 C (99.5 F) | 09/20/2016 9:13 AM | | | | | PST | | + + + + + | Respiratory Rate | 20 | 09/20/2016 9:13 AM | | | | | PST | | + + + + + | Oxygen Saturation | 100% | 09/20/2016 9:13 AM | | | | | PST | | + + + + + | Inhaled Oxygen | - | - | | | Concentration | | | | + + + + + | Weight | 72.6 kg (160 lb) | 09/20/2016 9:13 AM | | | | | PST | | + + + + + | Height | 152.4 cm (5') | 09/20/2016 9:13 AM | | | | | PST | | + + + + + | Body Mass Index | 31.25 | 09/20/2016 9:13 AM | | | | | PST | | + + + + + documented in this encounter Discharge Instructions Instructions Deuce Mcfadden MD - 09/20/2016Toradol for aches and pains and fever Add tylenol for fever if needed Robitussin with Codeine for cough Start Tamiflu if desired AttachmentsThe following attachments cannot be sent through Care Everywhere.INFLUENZA ([place])OSELTAMIVIR CAPSULES (SLOVENIAN)documented in this encounter Medications at Time of [...] + +---------+ + + | | Take 5-10 mLs by | 180 mL | 0 | 09/20/19 | | | guaiFENesin-codeine | mouth every 4 hours | | | 17 | 7 | | (ROBITUSSIN AC) | as needed for Cough. | | | | | | 100-10 mg/5 mL | | | | | | | liquid | | | | | | + [...] + + + +---------+ + + | ketorolac | Take 1 tablet by | 15 | 0 | 09/20/19 | | | (TORADOL) 10 MG | mouth every 8 hours | tablet | | 17 | 7 | | tablet | as needed for Pain. | | | | | + + + +---------+ + + | oseltamivir | Take 1 capsule by | 10 | 0 | 09/20/19 | | | (TAMIFLU) 75 mg | mouth 2 times daily | capsule | | 17 | 7 | | capsuleIndications: | for 5 days. | | | | | | Influenza | Indications: Flu | | | | | + + [...] + | Diagnosis | + + | Influenza - Primary Influenza with other respiratory manifestations | + + documented in this encounter Administered Medications + +--------+ +-------+------+------+ | Medication Order | MAR | Action | Dose | Rate | Site | | | Action | Date | | | | + +--------+ +-------+------+------+ | ketorolac (TORADOL) tablet 10 | Given | 09/20/19 | 10 mg | | | | mg 10 mg, Oral, EVERY 4 HOURS | | 17 9:36 | | | | | PRN, Pain, Starting 09/20/16 | | AM PST | | | | | at 0925, For 5 days | | | | | | + +--------+ +-------+------+------+ +---+---+ | | | +---+---+ documented in this encounter"
--- OUTSIDE RECORDS SUMMARY | ~2020-01-13 | XMS | Encounter Summary ---
Demographics + + + | Address | 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 Appointment reminders by text: Do you have an upcoming appointment? Receive a test reminder! [place] [phone] to opt. in and ask our front end mechanic for more information blake carballo your visit today. *Standard message and data rates may apply Referral for Neurology is ready for you. Dr. Addison. [phone]. Mental Health Referrals: Please choose and then contact your insurance regarding coverage for any of the provided pr oviders or facilities listed below: Alexandra Casas, DIRECTOR DATA PROCESSING: [phone]. Not taking new clients, can be put on a waiting list . Madeleine Calhoun MA: [phone] Estephania eSrrato: [phone] Pam Gomez, PhD: [phone] Dr. Ankush Chao: [phone] Antelmo Cortez, [facility]: [phone] Peter Stanley, DIRECTOR DATA PROCESSING: [phone] Allyson Rios, [facility]: [phone]. [facility]. "[facility]" Brian Vale [phone] Madyson Macedo: [phone] [facility] [place]: [phone] Eva Moore, DIRECTOR DATA PROCESSING: [phone] Cindy Manning: [phone]. [facility]: [phone] Referrals: During your office today we have ordered referrals for you -Physical Therapy-. The referral will be reviewed by our Insurance Authorization Coordinators. Once approved the order will be sent to the referred providers office. The referred providers office will contact you to schedule. If you have not heard to schedule your referral/s within 10 business days, please call our Referral Driller Brake Lining at [phone] to check on the status of the [...] check with your pharmacist before using any xppz-ejh-jthov er medicines, including herbal supplements. Date Last Reviewed: 01/02/201719995502-9398 [employer]. [address] [place] [address], [place] [address]. All righ ts reserved. This information is [...] in the long run. Date Last Reviewed: 09/04/201619995008-4983 [employer]. [address] [place] [address], [place] [address]. All righ ts reserved. This information is [...] check with your pharmacist before using any escu-uzv-sbnrp er medicines, including herbal supplements. Date Last Reviewed: 01/02/201719993509-9216 [employer]. [address] [place] [address]. All righ ts reserved. This information is [...] PHQ9 SCORE Office Visit from 08/10/2018 in [facility] Office Visit from 2017 in [facility] PHQ-9 Total Score (Patient Health Questionnaire) 15 8 ANXIETY/STRESS SCORE Office Visit from 08/10/2018 in [facility] SILAS-7 Score (General Anxiety Disorder) 19 Note placed in Referral for Denied MRI from 04/13/2018 General 04/13/2018 1058 Reta Arvizu 2017-04/13??>PENDING [facility]IN[facility] RE[facility], REF # [id number] - Note PENDING- [facility], REF # [id number] Update - Scheduling Minimum Data Set | Update Description: UPLOADED CLINICAL INFORMATION ON [employer] WEBSITE. PER [employer] RESPONSE, "In order to process this case, please provide six weeks of recent ph ysician directed treatment with a follow up evaluation related to this MRI cervical spine wi thout contrast request. Please provide the above along with current clinical office notes so that the medical necessity review process can be completed. | Additional Contact Info: [employer] TEL: [phone]/ FAX: [phone] Past Medical History: Diagnosis Date Abrasion of [...] Portions of this report were transcribed using [employer] voice recognition soft hunter. Although effort was made in correcting the errors; grammatical and sound alike errors may still be present. documented in this enc ounter Plan of Treatment + + +--------+ + + | Name | Type | Priori | Associated Diagnoses | Order Schedule | | | | ty | | | + + +--------+ + + | Referral to [facility] | Outpatient | Routin | Thoracic outlet | Ordered: 08/10/2018 | | [place] [facility] | Referral | e | syndrome associated | | | [place] | | | with cervical rib | [...]
--- OUTSIDE RECORDS SUMMARY | ~2020-01-13 | XMS | Encounter Summary ---
Demographics + + + | Address | [address] | | | [place] [address] | + + + | Home Phone [...] Organization | [facility] | | [...] Team Providers + +------+ + | Care Section Gang Name | Role | Phone | + +------+ + PCP | Unavailable | + +------+ + Reason for Visit + + + | Reason | Comments | + + + | Pruritis | "I just left the ER they gave me an antibiotic and now I'm | | | intching all over." | + + + Encounter Details +--------+ + + + + | Date | Type | Department | Care Team | Description | +--------+ + + + + | 11/15/ | Emergency | [facility] | Tomy Varner, | Medication reaction, | | 2019 | | [facility] | [place] [address] | initial encounter | | | | EMERGENCY CENTER | [place] [address] | (Primary Dx); | | | | [address] | [phone] | Urticaria; Pruritus | | | | [place], [place] | | | | | | [address] | Osiel Barreto, | | | | | [phone] | MD [address] | | | | | | [place] [address] | | | | | | [phone] | | +--------+ + + + + [...] + + + | Blood Pressure | 107/59 | 11/16/2019 3:48 PM | | | | | PDT | | + + + + + | Pulse | 117 | 11/16/2019 3:48 PM | | | | | PDT | | + + + + + | Temperature | 36.9 C (98.5 F) | 11/16/2019 3:48 PM | | | | | PDT | | + + + + + | Respiratory Rate | 22 | 11/16/2019 3:48 PM | | | | | PDT | | + + + + + | Oxygen Saturation | 100% | 11/16/2019 3:48 PM | | | | | PDT [...] documented in this encounter Discharge Instructions Instructions Tomy Varner PA-C - 11/16/2019Do not take Bactrim prescription. Please st art Keflex instead. AttachmentsThe following attachments cannot be sent through Care Everywhere.Hives (Adult) ( Bhutanese)Drug Reaction, Other (Bhutanese)documented in this encounter Medications at Time of [...] | [facility] | Routin | | 11/16/2019 3:44 PM | | EXCHANGE | | e | | PDT | + +------+--------+ + + documented as of this encounter Visit Diagnoses + + | Diagnosis | + + | Medication reaction, initial encounter - Primary | + + | Urticaria Urticaria, unspecified | + + | Pruritus Unspecified pruritic disorder | + + documented in this encounter Administered Medications + +--------+ +-------+------+------+ | Medication Order | MAR | Action | Dose | Rate | Site | | | Action | Date | | | | + +--------+ +-------+------+------+ | diphenhydrAMINE (BENADRYL) | Given | 11/16/19 | 50 mg | | | | capsule 50 mg 50 mg, Oral, ONCE, | | 20 3:58 | | | | | 11/16/19 at 1600, For 1 dose | | PM PDT | | | | + +--------+ +-------+------+------+ +---+---+ | | | +---+---+ documented in this encounter
--- OUTSIDE RECORDS SUMMARY | ~2020-01-13 | XMS | Clinical Summary ---
Demographics + + + | Address | [address] | | | [place] [address] | + + + | Home Phone [...] Organization | [facility] | | | and [...] Team Providers + +------+ + | Care Printer Maintainer Name | Role | Phone | + [...] 1 tablet by | | 1 | 12/2 | | Activ | | (ZYRTEC) 10 [...] | 0 | 04/2 | 05/0 | Expir | | (KEFLEX) 500 mg | mouth 4 times daily | capsule | | 6/20 | 6/20 | ed | | capsule | for 10 days. | | | 20 | 20 | | + + +---------+---+------+------+-------+ | clindamycin | Take 1 capsule by | 40 | 0 | 04/2 | 05/0 | Expir | | (CLEOCIN) 300 MG | mouth 4 times daily | capsule | | 6/20 | 6/20 | ed | | capsule | for 10 days. [...] | +--------+ + + + + | 01/05/ | Emergency | Emergency Medicine | Pawel Clay, | Migraine without | | 2020 | | | MD | status migrainosus, | | | | | | not intractable, | | | | | | unspecified migraine | | | | | | type (Primary Dx) | +--------+ + + + + | 01/04/ | Telephone | Case Management | Antonia Goyal | ED Follow-up | | 2019 | | | | (methamphetamine | | | | | | abuse) | +--------+ + + + + | 01/03/ | Emergency | Emergency Medicine | Saleem Toure | Drug-induced | 2019 | | | MD | delirium (Primary | | | | | | Dx); Methamphetamine | | | | | | abuse (HCC); | | | | | | Methamphetamine | | | | | | addiction (HCC) | +--------+ + + + 01/02/ | Emergency | Emergency Medicine | Bogdan | Pain in both upper | 2019 | | | Deuce Sainz MD | extremities (Primary | | | | | | Dx); Substance | | | | | | abuse (HCC); Sinus | | | | | | congestion | +--------+ + + + + | 01/01/ | Telephone | Case Management | JosueLeesa | ED Follow-up (after | 2019 | | | | ED follow up) | +--------+ + + + + | 12/30/ | Emergency | Emergency Medicine | Chapito Wilson MD | Polysubstance abuse | | 2020 - | | | | (HCC) (Primary Dx) | | | | | | | | 12/31/ | | | | | | 2019 | | | | | +--------+ + + + + | 12/28/ | Emergency | Emergency Medicine | Bogdan | Skin infection | 2019 | | | Deuce Sainz MD | (Primary Dx) | +--------+ + + + + | 12/10/ | Imaging | Radiology | Liang, | | 2019 | Exam | Oniel Paris MD | | +--------+ + + + [...] 2019 | | | DO Jim | ([facility]) (Primary Dx); | | | | | | Alcohol use | +--------+ + + + + | 12/07/ | Emergency | Emergency Medicine | Pawel Clay, | Methamphetamine | | 2019 | | | | abuse (HCC) (Primary | | | | | | [...] | Jim Hurd | 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, | ([facility]) (Primary Dx) | | | | | [...] Antonia Goyal ED Follow-up (ED f/u | 2019 | | | | amphetamine abuse) | +--------+ + + + + | 12/01/ | Telephone | Case Management | Antonia Goyal | ED Follow-up (ED f/u | 2019 | | | | drug use, panic | | | | | | attack) | +--------+ + + + + | 11/30/ | Emergency | Emergency Medicine | Pawel Clay, | Methamphetamine | 2019 | | | MD | intoxication (HCC) | | | | | | (Primary Dx); Panic | | | | | | attack | +--------+ + + + + | 11/19/ | Emergency | Emergency Medicine | Jim Hurd | Foreign body in skin | 2019 | | | MD Deuce [...] due to | | 2019 | | | MD | non-hypodermic | | | | | [...] Alcoholic | | 2019 | | | MD | intoxication without | | | | [...] | | TRIVALENT(PED/ADOL/A | | | | DULT) PSKT | | | + + + [...] + + + | Blood Pressure | 120/83 | 01/06/2020 6:28 AM | | | | | PDT | | + + + + + | Pulse | 96 | 01/06/2020 7:32 AM | | | | | PDT | | + + + + + | Temperature | 36.1 C (97 F) | 01/06/2020 5:48 AM | | | | | PDT | | + + + + + | Respiratory Rate | 16 | 01/06/2020 5:48 AM | | | | | PDT | | + + + + + | Oxygen Saturation | 96% | 01/06/2020 7:32 AM | | | | | PDT [...] + | ED INFORMATION | Routin | 01/06/2020 | | | | EXCHANGE | e | 5:41 AM | | | | | | PDT | | | + +--------+ + + + +---+--------+ | | | | | Proced | | | ure | | | Note - | | | Sky, | | | Lab In | | | | | | Hlseve | | | n - | | | 01/05/ | | | 2019 | | | 5:42 | | | AM PDT | | [...] | | | 0 | | | 05:41? | | | STROE, | | | | | | NATALY | | | | | | J?MRN: | | | | | | [id number] | | | [id number] | | | riteri | | | [...] | | 1 0 | | | [place] | | | | | | [facility] [...] | | | Center | | | 16 0 | | | [facility] | | Hospit | | | al 1 0 | | | Total | | | 24 0 | | | Note: | | [...] | | out | | | of 24 | | | in the | | [...] | | int | | | May 4, | | | 2020 | | | Provid | | | ence | | | [facility] | | | [place] [facility] [place] | | | [place] | | | Emerge | | | ncy | | | | | | emesis | | | | | | muscle | | | pain | | | May | | | 2, | | | 2020 | | [...] | | | d | | | Advers | | | e | | | effect | | | of | | | unspec | | | ified | | | drugs, | | | | | | medica | | | ments | | | and | | | biolog | | | ic | | | Other | | | stimul | | | ant | | | depend | | | ence, | | | uncomp | | | licate | | | d | | | Disori | | | entati | | | on, | | | unspec | | | ified | | | May | | | 1, | | | 2020 | | [...] | | | St. | | | [facility] | | | y H. | | [...] | | | 2020 | | | [place] | | | | | | Health [...] | | | 2020 | | | [place] | | | | | | Health [...] | | | yle | | | Recent | | | [...] | | | otify/ | | | [id number] | | | [id number] | | | [id number] | | | -[id number] | | | [id number] | | | [id number] | | | | | | PLEASE [...] | +---+--------+ + +--------+ +---+ + | URINALYSIS WITH [...] section. | + +--------+ +---+ + | POC GLUCOSE | Routin | [...] | | n - | | | 05/02/ | | | 2020 | | | 4:21 | | | [...] | | | FICATI | | | ON?05/ | | | /202 | | | 0 | | | 16:19? | | | STROE, | | | | | | NATALY | | | | | | J?MRN: | | | | | | [id number] | | | [id number] | | | riteri | | | [...] | | 1 0 | | | [place] | | | | | | Health [...] | | | St. | | | [facility] | | | y | | | [...] | | | St. | | | [facility] | | y [facility]. | | [...] | | | 2020 | | | [place] | | | | | | Health [...] | | | 2020 | | | [place] | | | | | | Health [...] | | | otify/ | | | [id number] | | | [id number] | | | [id number] | | | -[id number]- | | | [id number] | | | [id number] | | | | | | PLEASE [...] | +---+--------+ + +--------+ +---+ + | VAS UPPER EXTREMITY | STAT | 01/03/2020 | | Results for this | | VENOUS RIGHT | | 9:12 AM | | procedure are in the | | | | PDT | | results section. | + +--------+ +---+ + | BASIC METABOLIC | STAT | 01/03/2020 | | Results for this | | PANEL | | 7:29 AM | | procedure are in the | | | | PDT | | results section. | + +--------+ +---+ + | CBC WITH | STAT | 01/03/2020 | | Results for this | | DIFFERENTIAL | | 7:29 AM | | procedure are in the | | | | PDT | | results section. | + +--------+ +---+ + | ED INFORMATION | Routin | 01/03/2020 | | | | EXCHANGE | e | 6:40 AM | | | | | | PDT | | | + +--------+ +---+ + +---+--------+ | | | | | Proced | | | ure | | | Note - | | | Sky, | | | Lab In | | | | | | Hlseve | | | n - | | | 01/02/ | | | 2019 | | | 6:41 | | | AM PDT | | [...] | | | FICATI | | | ON?05/ | | | | | | 0 | | | 06:40? | | | STROE, | | | | | | NATALY | | | | | | J?MRN: | | | | | | [id number] | | | [id number] | | | riteri | | | [...] | | 1 0 | | | [place] | | | | | | [facility] [...] | | | Center | | | 14 0 | | | [facility] | | | Hospit | | | al 1 0 | | | Total | | | 22 0 | | | Note: | | [...] | | out | | | of 22 | | | in the | | [...] | | int | | | May 1, | | [...] | | | re | | | May 1, | | | 2020 | | | [facility] | [facility] | | [...] | | | 2020 | | | [place] | | | | | | Health [...] | | | 2020 | | | [place] | | | | | | Health [...] | | | otify/ | | | [id number] | | | [id number] | | | [id number] | | | -[phone]- | | | [id number] | | | [id number] | | | | | | PLEASE [...] +---+---+ | ED INFORMATION | Routin | 12/31/2019 [...] | | | ON?04/ | | | 28/202 | | | 0 | | | 23:36? | | | STROE, | | | | | | NATALY | | | | | | J?MRN: | | | | | | [id number] | | | [id number] | | | riteri | | | [...] | | 1 0 | | | [place] | | | | | | Health [...] | | | 2020 | | | [place] | | | | | | Health [...] | | | 2020 | | | [place] | | | | | | Health [...] J?MRN: | | | | | | [id number] | | | [id number] | | | riteri | | | [...] | | 1 0 | | | [place] | | | | | | Health [...] | | | 2020 | | | [place] | | | | | | Health [...] | | | 2020 | | | [place] | | | | | | Health [...] | Results for this | | CHEM YONI BUI | | 9:41 PM | | procedure [...] | + +--------+ +---+ + | EXTRA LAVANDRES TOP | Routin | 12/06/2019 | | [...] J?MRN: | | | | | | [id number] | | | [id number] | | | riteri | | | [...] | | | 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 | | | STROE, | | | | | | NATALY | | | | | | J?MRN: | | | | | | [id number] | | | [id number] | | | riteri | | | [...] | | | otify/ | | | [id number] | | | [id number] | | | [...] - | | | 11/15/ | | | 2019 | | | 3:45 [...] J?MRN: | | | | | | [id number] | | | [id number] | | | riteri | | | [...] | +---+--------+ + +--------+ +---+ + | JIMMY Corado ARM | TATIANNA | 11/16/2019 | | [...] | | n - | | | 03/14/ | | | 2020 | | | 12:36 | | | [...] | | | ON?03/ | | | [address] | | | 0 | | | 12:35? | | | STROE, | | | | | | NATALY | | | | | | J?MRN: | | | | | | [id number] | | | [id number] | | | riteri | | | [...] +---+ + from Last 3 Months Results Urinalysis with Microscopic with Culture if Indicated (01/04/2020 6:05 PM PDT)Only the mos t recent of [...] - 1.030 | [facility] | | | [place], | | | [facility] | | [...] [address] | [place] | [phone] | | [facility] | | [address] | | | - LABORATORY | | | | + + + + + Drugs of Abuse, Screen, Urine (01/04/2020 6:05 PM PDT)Only the most recent of 3 results wi thin the time period is [...] + | [facility] | [address] | [place] | [phone] | | [facility] | | [address] | | | - LABORATORY | | | | + + + + + POC Glucose (01/04/2020 5:34 PM PDT) + +-------+ + + + | Component | Value | Ref Range | Performed | Pathologist | | | | | At | Signature | + +-------+ + + + | Glucose, | 79 | 70 - 109 mg/dL | [facility] | | | POC | | | [facility] | | [...] [address] | [place] | [phone] | | [facility] | | [address] | | | - LABORATORY | | | | + + + + + VAS Upper Extremity Venous Right (01/03/2020 9:12 AM PDT) + + | Specimen | + + | | + + + + + | Impressions | Performed At | + + + | No evidence for DVT. Diffuse subcutaneous edema is seen in the | [facility] | | right elbow area of pain. Dictated and Signed by: Minesh Alberts, | | | Electronically signed: 01/03/2020 9:25 AM | | + + + + + + | Narrative | Performed At | + + + | VAS UPPER EXTREMITY VENOUS RIGHT 01/03/2020 7:59 AM HISTORY: R/O | [facility] | | DVT. COMPARISON: None. PROTOCOL: Mclain scale and Doppler images | | | of the upper extremity veins. FINDINGS: The right internal | | | jugular, subclavian, axillary, brachial, cephalic, and basilic veins | | | demonstrate normal flow, augmentation, and compression. Diffuse | | | subcutaneous edema is seen in the right elbow area of pain. | | + + + + + | Procedure Note | + + | Pardeep Swanson Results In - 01/03/2020 9:28 AM PDT VAS UPPER EXTREMITY VENOUS RIGHT | | 01/03/2020 7:59 AM HISTORY: R/O DVT.COMPARISON: None.PROTOCOL: Mclain scale and Doppler | | images of the upper extremity veins.FINDINGS:The right internal jugular, subclavian, | | axillary, brachial, cephalic, andbasilic veins demonstrate normal flow, augmentation, | | and compression. Diffusesubcutaneous edema is seen in the right elbow area of | | pain.IMPRESSION: No evidence for DVT.Diffuse subcutaneous edema is seen in the right | | elbow area of pain.Dictated and Signed by: Minesh Alberts MD Electronically signed: | | 01/03/2020 9:25 AM | |FINDINGS: | |The right internal jugular, subclavian, axillary, brachial, cephalic, and | |basilic veins demonstrate normal flow, augmentation, and compression. Diffuse | |subcutaneous edema is seen in the right elbow area of pain. | | | |IMPRESSION: | |No evidence for DVT. | | | |Diffuse subcutaneous edema is seen in the right elbow area of pain. | | | |Dictated and Signed by: Minesh Alberts MD | | Electronically signed: 01/03/2020 9:25 AM | + + + +---------+ + + | Performing | Address | City/State/Zipcode | Phone Number | | Organization | | | | + +---------+ + + | [facility] | | | | + +---------+ + + CBC with Differential (01/03/2020 7:29 AM PDT)Only the most recent of 4 results within the time period is included. + + + + + + | Component | Value | Ref Range | Performed | Pathologist | | | | | At | Signature | + + + + + + | WBC | 8.3 | 4.0 - 11.0 K/uL | [facility] | | | | | | [facility] | | | | | | MEDICAL | | | | | | CENTER - | | | | | | LABORATORY | | + + + + + + | RBC | 4.05 | 3.70 - 5.20 | [facility] | | | | | M/uL | [facility] | | | | | | MEDICAL | | | | | | CENTER - | | | | | | LABORATORY | | + + + + + + | Hemoglobin | 13.2 | 11.5 - 16.0 | [facility] | | | | | g/dL | [facility] | | | | | | MEDICAL | | | | | | CENTER - | | | | | | LABORATORY | | + + + + + + | Hematocrit | 38.3 | 34.0 - 47.0 % | [facility] | | | | | | [facility] | | | | | | MEDICAL | | | | | | CENTER - | | | | | | LABORATORY | | + + + + + + | MCV | 94.6 | 83.0 - 101.0 fL | [facility] [...] + + + + | MCHC | 34.5 | 32.0 - 36.0 | [facility] | | | | | g/dL | [facility] | | | | | | MEDICAL | | | | | | CENTER - | | | | | | LABORATORY | | + + + + + + | RDW-CV | 12.1 | <15.0 % | [facility] | | | | | | [facility] | | | | | | MEDICAL | | | | | | CENTER - | | | | | | LABORATORY | | + + + + + + | RDW-SD | 42.5 | 35.1 - 46.3 fL | [facility] | | | | | | [facility] | | | | | | [facility]ICAL | | | | | | CENTER - | | | | | | LABORATORY | | + + + + + + | Platelet | 281 | 140 - 440 K/uL | [facility] [...] + + + + | % | 58.1 | 45.0 - 82.0 % | [facility] | | | Neutrophils | | | [facility] | | | | | | MEDICAL | | | | | | CENTER - | | | | | | LABORATORY | | + + + + + + | % | 34.8 | 20.0 - 45.0 % | [facility] [...] + + + + | % | 1.3 | 0.0 - 5.0 % | [facility] [...] + + + + | Absolute | 4.82 | 1.80 - 8.50 | [facility] | | | Neutrophils | | K/uL | [facility] | | | | | | MEDICAL | | | | | | CENTER - | | | | | | LABORATORY | | + + + + + + | Absolute | 2.89 | 0.60 - 3.20 | [facility] | | | Lymphocytes | | K/uL | [facility] | | | | | | MEDICAL | | | | | | CENTER - | | | | | | LABORATORY | | + + + + + + | Absolute | 0.42 | 0.00 - 1.00 | [facility] | [...] + + + + | Absolute | 0.05 | 0.00 - 0.10 | [facility] | [...] | | | | WBCs | [facility] | | | | [...] ranges: Trim. Absolute (K/uL) Percentage (%) | [facility] | | 1st 0.003-0.091 K/uL 0.0-0.9% 2nd 0.007-0.247 K/uL | [facility] | | 0.1-2.0% 3rd 0.018-0.456 K/uL 0.1-2.0% | - LABORATORY | + + + + + + + + | Performing | Address | City/State/Zipcode | Phone Number | | Organization | | | | + + + + + | [facility] | [address] | [place] | [phone] | | [facility] | | [address] | | | - LABORATORY | | | | + + + + + Basic Metabolic Panel (01/03/2020 7:29 AM PDT) + + + + + [...] + + + + | Cl | 108 (H) | 98 - 107 mmol/L | [...] + + + + | Glucose | 92 | 60 - 106 mg/dL | [facility] [...] + + + + | Creatinine | 0.68 | 0.55 - 1.02 | [facility] | [...] | | MEDICAL | | | | mL/min/1.38n0Ydru than | | CENTER - | | [...] + + + + | Calcium | 9.2 | 8.7 - 10.4 | [facility] | | | | | mg/dL | [facility] | | | | | | MEDICAL | | | | | | CENTER - | | | | | | LABORATORY | | + + + + + + | BUN/Creatin | 16.2 | | [facility] | | | ine Ratio | | | [facility] | | [...] [address] | [place] | [phone] | | [facility] | | [address] | | | - LABORATORY | | | | + + + + + XR Humerus Left 2 + Vw (12/08/2019 [...] + | Sky, Rad Results In - 12/08/2019 9:58 PM PDT [...] | | | | | performed at [facility] | | | | | | [place] | | | | | | [address] | | | | + + + [...] | + + + + + | [facility] | [address] | [place] [address] | [phone] | + + + + + , [...] JENNIFER | | | | performed at [facility];[address] | | LABORATORY | | | | [place] | | | | | | [address] | | | | + + + + + + + + | Specimen | + + | Blood | + + + + + + + | Performing | Address | City/State/Zipcode | Phone Number | | Organization | | | | + + + + + | [facility] | [address] | [place] [address] | [phone] | + + + + + Ethanol [...] 86 (H)Comment: Testing | <10 mg/dL | [facility] | | | SERUM/PLASM | performed at [facility];[address] | | LABORATORY | | | A | [place] [address];[place], [place] | | | | | | [address] | | | | + + + + + + + + | Specimen | + + | Blood | + + + + + + + | Performing | Address | City/State/Zipcode | Phone Number | | Organization | | | | + + + + + | [facility] | [address] | [place] [address] | [phone] | + + + + + Acetaminophen [...] (L)Comment: Testing | 10.0 - 30.0 | [facility] | | | en, S | performed at [facility];[address] | ug/mL | LABORATORY | | | | [place];[place], [place] | | | | | | [address] | | | | + + + + + + + + | Specimen | + + | Blood | + + + + + + + | Performing | Address | City/State/Zipcode | Phone Number | | Organization | | | | + + + + + | [facility] | [address] [facility] | [place] [address] | [phone] | + + + + + Salicylate [...] <3.0Comment: Testing | 2.8 - 20.0 | [facility] | | | mg/dL | performed at [facility];[address] | mg/dL | LABORATORY | | | | [address];[place], [place] | | | | | | [address] | | | | + + + + + + + + | Specimen | + + | Blood | + + + + + + + | Performing | Address | City/State/Zipcode | Phone Number | | Organization | | | | + + + + + | [facility] | [address] | [place] [address] | [phone] | + + + + + Comprehensive Metabolic Panel (12/08/2019 9:28 PM PDT)Only the most recent of 3 results wi thin the time period is [...] | | | | | performed at [facility];[address] | | | | | | [facility];[place], [place] | | | | | | [address] | | | | + + + + + + + + | Specimen | + + | Blood | + + + + + + + | Performing | Address | City/State/Zipcode | Phone Number | | Organization | | | | + + + + + | [facility] | [address] | [place] [address] | [phone] | + + + + + Extra [...] + | [facility] | [address] | [place] | [phone] | | [facility] | | [address] | | | - LABORATORY | | [...] | [address] | [place] | [phone] | | [facility] | | [address] | | | - LABORATORY | | [...] [address] | [place] | [phone] | | [facility] | | [address] | | | - LABORATORY | | | | + + + + + Magnesium (12/06/2019 6:51 AM PDT) + +-------+ + + + | Component | Value | Ref Range | Performed | Pathologist | | | | | At | Signature | + +-------+ + + + | Magnesium | 2.0 | 1.6 - 2.6 mg/dL | [facility] | | | | | | [facility] [...] [address] | [place] | [phone] | | [facility] | | [address] | | | - LABORATORY | | | | + + + + + CK Total (12/06/2019 6:51 AM PDT) + +---------+ + + + | Component | Value | Ref Range | Performed | Pathologist | | | | | At | Signature | + +---------+ + + + | CK TOTAL | 415 (H) | 34 - 145 U/L | [facility] | | | | | | [place] | | | [...] + | [facility] | [address] | [place] | [phone] | | [facility] | | [address] | | | - LABORATORY | | [...] + | Sky, Pardeep Results In - 12/01/2019 12:22 PM PDT [...] | | | | MEI REDMOND MD ([id number]) | | | | | | on [...] | | | + +---------+ + + JIMMY Rodriguez (11/16/2019 2:17 PM PDT) + [...] recent of 2 results within the ti ne period is included. + + | Specimen [...] | | | + +---------+ + + from Last 3 Months Insurance [...] | [employer] | [employer] | [id number] | | [phone] | | Medica | | MEDICAID HMO | HEALTH | | 020-Pr | 1 | | id | | | MDCD | | esent | | | | | | [place]MO [place] | | | | | | + +--------+ +--------+ +---------+--------+ | [employer] | [employer] | [id number] | | [phone] | | Medica | | MEDICAID HMO [...] | | al/Fam | | 1980 | [phone] | [place], [place] | | | lew | | | 5 (Home) | [address] | + +--------+ +--------+ + + | Nataly Martinez | Person | Self | [birth year] | [address] | | | al/Fam | | 1980 | [phone] | [place], [place] | | | lew | | | 5 ([place]) | [address] | + +--------+ +--------+ + + Advance Directives + + + + + | Type | Date Recorded | Patient | Explanation | | | | Patient Educator | | + + + + + | Power of | | | | | Insert Molding Operator | | | | + + + + + | Advance | 10/22/2015 10:31 | | | | Directive | AM | | | + + + + +
--- OUTSIDE RECORDS SUMMARY | ~2020-01-13 | XMS | Encounter Summary ---
Demographics + + + | Address | [address] | | | [place] [address] | + + + | Home Phone [...] + | Organization | [facility] | | [...] Team Providers + +------+ + | Care Sales Account Director Name | Role | Phone | + +------+ + | Isabela Gage DO | PCP | | + +------+ + Reason for Visit + + + | Reason | Comments | + + + | Foot Numbness | left | + + + | Sinusitis | | + + + Encounter Details +--------+ + + + + | Date | Type | Department | Care Team | Description | +--------+ + + + + | 01/02/ | Emergency | [facility] | Bogdan, | Pain in both upper | | 2019 | | [facility] | Deuce Sainz MD [address] | extremities (Primary | | | | CENTER [address] | [address] | Dx); Substance | | | | [place], [place] | [place] [address] | abuse (HCC); Sinus | | | | [address] | [phone] | congestion | | | | [phone] | | | +--------+ + + + [...] + + + | Blood Pressure | 118/76 | 01/03/2020 8:13 AM | | | | | PDT | | + + + + + | Pulse | 99 | 01/03/2020 9:11 AM | | | | | PDT | | + + + + + | Temperature | 37.6 C (99.6 F) | 01/03/2020 7:48 AM | | | | | PDT | | + + + + + | Respiratory Rate | 20 | 01/03/2020 7:46 AM | | | | | PDT | | + + + + + | Oxygen Saturation | 96% | 01/03/2020 9:11 AM | | | | | PDT [...] Discharge Instructions Instructions Deuce Mcfadden MD - 01/03/2020Continue the antibiotics Follow up with your PCP If you decide you would like help to stop using methamphetamine, please start by calling co mprehensive [phone] documented in this encounter Medications at Time [...] INFORMATION | MARGAUX | Routin | | 01/03/2020 6:40 AM | | EXCHANGE | | e | | PDT | + +------+--------+ + + documented as of this encounter Procedures + +--------+ + + + | Procedure Name | Priori | Date/Time | Associated Diagnosis | Comments | | | ty | | | | + +--------+ + + + | VAS UPPER EXTREMITY | STAT [...] J?MRN: | | | | | | [id number] | | | [id number] | | | riteri | | | [...] | | 1 0 | | | [facility] | | | | | | [facility] [...] | | | St. | | | [facility] | | | y | | | [...] | | | St. | | | [facility] | | | y H. | | [...] | | | 2020 | | | [facility] | | | | | | Health [...] | | | 2020 | | | [facility] | | | | | | Health [...] | | | otify/ | | | [id number] | | | [id number] | | | [id number] | | | [id number] | | | [id number] | | | [id number] | | | [...] | +---+--------+ documented in this encounter Results VAS Upper Extremity Venous Right (01/03/2020 9:12 AM PDT) + + | Specimen | + + | | + + + + + | Impressions | Performed At | + + + | No evidence for DVT. Diffuse subcutaneous edema is seen in the | [facility] | | right elbow area of pain. Dictated and Signed by: Minesh Alberts, | | | MD Electronically signed: 01/03/2020 9:25 AM | | [...] + | Sky, Rad Results In - 01/03/2020 9:28 AM PDT [...] | | | + +---------+ + + Basic Metabolic Panel (01/03/2020 7:29 [...] | | | | | mg/dL | [facility] | | [facility] | | | | | | C[facility] - | | | | | | LABORATORY | | + + + + + + | eGFR if not | >60Comment: GLOMERULAR | >=60 | [facility] | | | | FILTRATION | mL/min/1.73m2 | [facility] | | | [place] | RATE,ESTIMATED | | MEDICAL | | | | mL/min/1.52k9Gsyc than | | CENTER - | | [...] | | | | | mg/dL | [facility] | | | | | [...] [address] | [place] | [phone] | | [facility] | | [address] | | | - LABORATORY | | | | + + + + + CBC with Differential (01/03/2020 7:29 AM PDT) + + + + + + | Component | Value | Ref Range | Performed | Pathologist | | | | | At | Signature | + + + + + + | WBC | 8.3 | 4.0 - 11.0 K/uL | [facility] | | | | | [facility] | | | | | | MEDICAL | | | | | | CENTER - | | | | | | LABORATORY | | + + + + + + | RBC | 4.05 | 3.70 - 5.20 | [facility] | | | | | M/uL | [facility] | | | | [...] | Monocytes | | K/uL | [facility] | | | | | | MEDICAL | | | | | | CENTER - | | | | | | LABORATORY | | + + + + + + | Absolute | 0.11 | 0.00 - 0.40 | [facility] | | | Eosinophils | | K/uL | [facility] | [...] 0.003-0.091 K/uL 0.0-0.9% 2nd 0.007-0.247 K/uL | [facility] | | 0.1-2.0% 3rd 0.018-0.456 K/uL 0.1-2.0% | - LABORATORY | + + + + + + + + | Performing | Address | City/State/Zipcode | Phone Number | | Organization | | | | + + + + + | [facility] | [address] | [place] | [phone] | | [facility] | | [address] | | | - LABORATORY | | | | + + + + + documented in this encounter Visit Diagnoses + + | Diagnosis | + + | Pain in both upper extremities - Primary | + + | Substance abuse (HCC) Other, mixed, or unspecified nondependent drug abuse, | | unspecified | + + | Sinus congestion Other diseases of nasal cavity and sinuses | + + documented in this encounter Administered Medications + +---------+ +--------+-------+------+ | Medication Order | MAR | Action | Dose | Rate | Site | | | Action | Date | | | | + +---------+ +--------+-------+------+ | sodium chloride 0.9% (NS) bolus | New Bag | 01/03/20 | 1,000 | 2000 | | | 1,000 mL 1,000 mL, Intravenous, | | 20 7:35 | mLs | mL/hr | | | Administer over 30 Minutes, | | AM PDT | | | | | ONCE, 01/03/20 at 0720, For 1 | | | | | | | dose | | | | | | + +---------+ +--------+-------+------+ +---+---+ | | | +---+---+ documented in this encounter"
--- OUTSIDE RECORDS SUMMARY | ~2020-01-13 | XMS | Encounter Summary ---
Demographics + + + | Address | [address] | | | [place] [address] | + + + | Home Phone | | + + + | Preferred Language | Unknown | + + + | Marital Status | Single | + + + | Sabianist Affiliation | 1013 | + + + | Race | Unknown | + + + | Ethnic Group | Unknown | + + + Author + + + | Author | [facility] | | | and [place] | + + + | Organization | [facility] | [...] Providers + +------+ + | Care Senior It Business Analyst Name | Role | Phone | [...] | | | | [address] [place] | | | | | | [address] | | | | | | [phone] | | | +--------+ + + + [...]
--- OUTSIDE RECORDS SUMMARY | ~2020-01-13 | XMS | Encounter Summary ---
Demographics + + + | Address | [address] | | | [place] [address] | + + + | Home Phone | | + + + | Preferred Language | Unknown | + + + | Marital Status | Single | + + + | Episcopal Affiliation | CHR | + + + | Race | White | + + + | Ethnic Group | Not or | + + + Author + + + | Organization | Unknown | + + + | Address | Unknown | + + + | Phone | Unavailable | + + + Support + + +---------+ + | Name | Relationship | Address | Phone | + + +---------+ + | Radha Soria | ECON | Unknown | | + + +---------+ + Care Team Providers + +------+ + | Care Quill Machine Tender Name | Role | Phone | + +------+ + | No Pcp Per Patient | PCP | Unavailable | + +------+ + Encounter Details +--------+--------+ + + + | Date | Type | Department | Care Team | Description | +--------+--------+ + + + | 12/10/ | Travel | | | | | 2020 | | | | | +--------+--------+ + + + Social History + +-------+ [...]
--- OUTSIDE RECORDS SUMMARY | ~2020-01-13 | XMS | Encounter Summary ---
Demographics + + + | Address | [address] | | | [place] [address] | + + + | Home Phone [...] Author + + + | Author | [facility] | | | and [place] | + + + | Organization | [facility] | | | and [...] Team Providers + +------+ + | Care Commercial Manager Name | Role | Phone | [...] + + | 10/17/ | Emergency | [facility] | Bhupinder Yadav, | Alcoholic | | 2020 | | [facility] | MD [address] | intoxication without | | | | CENTER [address] | [place], [place] | complication (HCC) | | | | [place], [place] | [address] | (Primary Dx) | | | | [address] | | | | | | [phone] | | | +--------+ + + + [...] be sent through Care Everywhere.Alcohol Intoxic ation (Cook Islander)documented in this encounter Medications at Time [...]
--- OUTSIDE RECORDS SUMMARY | ~2020-01-13 | XMS | Encounter Summary ---
Demographics + + + | Address | [address] | | | [place] [address] | + + + | Home Phone [...] Organization | [facility] | [...] Team Providers + +------+ + | Care Machine Designer Name | Role | Phone | [...] + + | 11/30/ | Emergency | [facility] | Pawel Clay, | 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 | | [facility] EM[facility] | MD [address] | intoxication (HCC) | | | | CENTER [address] | [place] | (Primary Dx); Panic | | | | [place] | [address] | attack | | | | [address] | | | | | | [phone] | | | +--------+ + + + [...] through Care Everywhere.Methamphetamine Abuse and Addiction, Understanding (Tongan)Panic Attack (Tongan)documented in this encoun ter Medications at Time [...] J?MRN: | | | | | | [id number] | | | [id number] | | | riteri | | | [...] | | | or | | | patternmaker plastics | | | Dec | | | [...] | | | [facility] | | | [facility] | | | | | | MEDICA [...] [address] | [place] | [phone] | | [facility] | | [address] | | | - LABORATORY | | [...] + | [facility] | [address] | [place] | [phone] | | [facility] | | [address] | | | - LABORATORY | | [...] + | [facility] | [address] | [place] | [phone] | | [facility] | | [address] | | | - LABORATORY | | [...] mL/min/1.73m2 | [facility] | | | [place]ESE | RATE,ESTIMATED | | MEDICAL | | | | mL/min/1.38f7Wkbb than | | CENTER - | | [...] | | | | | | [facility] | | [...] | ine Ratio | | | [facility] | | | | | | MEDICAL [...] [address] | [place] | [phone] | | [facility] | | [address] | | | - LABORATORY | | [...] 0.003-0.091 K/uL 0.0-0.9% 2nd 0.007-0.247 K/uL | [facility] | | 0.1-2.0% 3rd 0.018-0.456 K/uL 0.1-2.0% | - LABORATORY | + + + + + + + + | Performing | Address | City/State/Zipcode | Phone Number | | Organization | | | | + + + + + | [facility] | [address] | [place] | [phone] | | [facility] | | [address] | | | - LABORATORY | | [...] [address] | [place] | [phone] | | [facility] | | [address] | | | - LABORATORY | | [...] | | | | MEI REDMOND MD ([id number]) | | | | | | on [...]
--- OUTSIDE RECORDS SUMMARY | ~2020-01-13 | XMS | Encounter Summary ---
Demographics + + + | Address | [address] | | | [place] [address] | + + + | Home Phone [...] Organization | [facility] | | [...] Team Providers + +------+ + | Care Metal Flooring Installer Name | Role | Phone | + +------+ + | Mohinder Gage DO | PCP | | + +------+ + Reason for Visit +--------+ + | Reason | Comments | +--------+ + | Spasms | seen at [facility] [facility] 3 x in past week. pt rambling in triage, | | | states iv drug use, has not used in 3 days | +--------+ + Encounter Details +--------+ + + + + | Date | Type | Department | Care Team | Description | +--------+ + + + + | 12/07/ | Emergency | [facility] | Arcenio Daniels | Methamphetamine use | | 2019 | | MEDICAL CENTER | DO Jim [address] | ([facility]) (Primary Dx); | | | | EMERGENCY CENTER | [address] | Alcohol use | | | | [address] | [place], [place] | | | | | [place], [place] | [address] | | | | | [address] | [phone] | | | | | [phone] | | | +--------+ + + + [...] + + + | Blood Pressure | 128/55 | 12/08/2019 9:03 PM | | | | | PDT | | + + + + + | Pulse | 109 | 12/08/2019 9:03 PM | | | | | PDT | | + + + + + | Temperature | 36.5 C (97.7 F) | 12/08/2019 9:03 PM | | | | | PDT | | + + + + + | Respiratory Rate | 18 | 12/08/2019 9:03 PM | | | | | PDT | | + + + + + | Oxygen Saturation | 99% | 12/08/2019 9:03 PM | | | | | PDT | | + + + + + | Inhaled Oxygen | - | - | | | Concentration | | | | + + + + + | Weight | 48.8 kg (107 lb 9.4 | 12/08/2019 9:03 PM | | | | oz) | PDT | | + + + + + | Height | - | - | | + + + + + | Body Mass Index | 21.01 | 12/08/2019 4:27 AM | | | | | PDT | | + + + + + documented in this encounter Discharge Instructions AttachmentsThe following attachments cannot be sent through Care Everywhere.Getting Help, A ddiction (Korean)Addiction: Ask Yourself These Questions (Korean)documented in this encoun ter Medications at Time [...] + +--------+ + + + | XR HUMERUS LEFT 2 + | TATIANNA | 12/08/2019 | | Results for this | | VW | | 9:44 PM | | procedure are in the | | | | PDT | | results section. | + +--------+ + + + | HC DRUG TEST PRSMV | STAT | 12/08/2019 | | Results for this | | YONI SIMON | | 9:41 PM | | procedure [...] + + | ALCOHOL | STAT | 12/08/2019 [...] + + + | SALICYLATE LEVEL | Routin | 12/08/2019 | | Results for this | | | e | 9:28 PM | | procedure are in the | | | | PDT | | results section. | + +--------+ + + + | COMPREHENSIVE | STAT | 12/08/2019 | | Results for this | | METABOLIC PANEL | | 9:28 PM | | procedure are in the | | | | PDT | | results section. | + +--------+ + + + documented in this encounter Results XR Humerus Left 2 + Vw (12/08/2019 9:44 PM PDT) + + | Specimen | + + | | + + + + + | Impressions | Performed At | + + + | Negative humerus. Signed by: Miguel Bartlett, Hayden Sign | [facility] | | Date/Time: [...] | | | | | performed at [facility] | | | | | | [facility];[place], [place] | | | | | | [address] | | | | + + + [...] | + + + + + | [facility] | [address] | [place] [address] | [phone] | + + + + + Urinalysis with Microscopic with Culture if Indicated (12/08/2019 9:41 PM PDT) + + + [...] - 1.030 | [facility] | | | [place], | | | LABORATORY | | | [...] | | | Urine | performed at [facility];[address] | | LABORATORY | | | | [place] | | | | | | [address] | | | | + + + [...] | + + + + + | [facility] | [address] | [place] [address] | [phone] | + + + + + , Serum, Qual (12/08/2019 9:28 PM PDT) + + + + + + | Component | Value | Ref Range | Performed | Pathologist | | | | | At | Signature | + + + + + + | Preg, Serum | NEGATIVEComment: Testing | NEG | [facility] | | | | performed at [facility] | | LABORATORY | | | | [address];[place], [place] | | | | | | [address] | | | | + + + + + + + + | Specimen | + + | Blood | + + + + + + + | Performing | Address | City/State/Zipcode | Phone Number | | Organization | | | | + + + + + | [facility] | [address] | [place] [address] | [phone] | + + + + + Ethanol (12/08/2019 9:28 PM PDT) + + + + + + | Component | Value | Ref Range | Performed | Pathologist | | | | | At | Signature | + + + + + + | ALCOHOL, | 86 (H)Comment: Testing | <10 mg/dL | [facility] | | | SERUM/PLASM | performed at [facility];[address] | | LABORATORY | | | A | [address];[place] | | | | | | [address] | | | | + + + + + + + + | Specimen | + + | Blood | + + + + + + + | Performing | Address | City/State/Zipcode | Phone Number | | Organization | | | | + + + + + | [facility] | [address] | [place] [address] | [phone] | + + + + + Acetaminophen Level (12/08/2019 9:28 PM PDT) + + + + + + | Component | Value | Ref Range | Performed | Pathologist | | | | | At | Signature | + + + + + + | Acetaminoph | <2.0 (L)Comment: Testing | 10.0 - 30.0 | DIPTI | | | en, S | performed at [facility];[address] | ug/mL | LABORATORY | | | | [address];[place], [place] | | | | | | [address] | | | | + + + + + + + + | Specimen | + + | Blood | + + + + + + + | Performing | Address | City/State/Zipcode | Phone Number | | Organization | | | | + + + + + | [facility] | [address] | [place] [address] | [phone] | + + + + + Salicylate Level (12/08/2019 9:28 PM PDT) + + + + + + | Component | Value | Ref Range | Performed | Pathologist | | | | | At | Signature | + + + + + + | Salicylate, | <3.0Comment: Testing | 2.8 - 20.0 | [facility] | | | mg/dL | performed at [facility];[address] | mg/dL | LABORATORY | | | | [address];[place], [place] | | | | | | [address] | | | | + + + + + + + + | Specimen | + + | Blood | + + + + + + + | Performing | Address | City/State/Zipcode | Phone Number | | Organization | | | | + + + + + | [facility] | [address] | [place] [address] | [phone] | + + + + + Comprehensive Metabolic Panel (12/08/2019 9:28 PM PDT) + + + + + [...] | >60Comment: GFR <60: | >60 | [facility] | | | GFR | CHRONIC KIDNEY [...] | | | | | | MDRD [facility] traceable | | | | | | equation.Testing | | | | | | performed at [facility] | | | | | | [facility], [place] | | | | | | [address] | | | | + + + + + + + + | Specimen | + + | Blood | + + + + + + + | Performing | Address | City/State/Zipcode | Phone Number | | Organization | | | | + + + + + | [facility] | [address] | [place] [address] | [phone] | + + + + + CBC with Differential (12/08/2019 9:28 PM PDT) + + + + + [...] | | | Absolute | performed at [facility];[address] | K/uL | LABORATORY | | | | [address];[place], [place] | | | | | | [address] | | | | + + + + + + + + | Specimen | + + | Blood | + + + + + + + | Performing | Address | City/State/Zipcode | Phone Number | | Organization | | | | + + + + + | [facility] | [address] | [place] [address] | [phone] | + + + + + documented in this encounter Visit Diagnoses + + | Diagnosis | + + | 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
--- OUTSIDE RECORDS SUMMARY | ~2020-01-13 | XMS | Encounter Summary ---
Demographics + + + | Address | [address] | | | [place] [address] | + + + | Home Phone [...] + + + | Author | [facility] | | | and [place] | + + + | Organization | [facility] | | | and [...] Providers + +------+ + | Care Chip Tuner Name | Role | Phone | + [...] + + | 11/18/ | Telephone | [facility] | Harshad Shaikh MD | Referral | | 2020 | | GENERAL SURGERY [address] | [address] | | | | | [address] | [address] [place], [place] | | | | | [place], [place] | [address] | | | | | [address] | | | | | | [phone] | | | +--------+ + + + [...]
--- OUTSIDE RECORDS SUMMARY | ~2020-01-13 | XMS | Encounter Summary ---
Demographics + + + | Address | [address] | | | [place] [address] | + + + | Home Phone [...] | Organization | [facility] | | [...] Providers + +------+ + | Care Manager Inventory Control Name | Role | Phone | + +------+ + | Katy Sanford MD | PCP | | + +------+ + Reason for Visit +--------+ + | Reason | Comments | +--------+ + | Other | Son diagnosed with pertussis. | +--------+ + Encounter Details +--------+ + + + + | Date | Type | Department | Care Team | Description | +--------+ + + + + | 06/21/ | Telephone | [facility] | Katy Sanford MD | Other (Son diagnosed | | 2017 | | [facility] [place] | [address] | with pertussis. ) | | | | [address] | [place] | | | | | [place], [place] | [address] | | | | | [address] | | | | | | [phone] | | | +--------+ + + + [...]
--- OUTSIDE RECORDS SUMMARY | ~2020-01-13 | XMS | Encounter Summary ---
Demographics + + + | Address | [address] | | | [place] [address] | + + + | Home Phone [...] Organization | [facility] | | | and [...] Team Providers + +------+ + | Care Grocery Store Bagger Name | Role | Phone | + +------+ + PCP | Unavailable | + +------+ + Encounter Details +--------+ + + + + | Date | Type | Department | Care Team | Description | +--------+ + + + + | 01/07/ | Hospital | [facility] | | | | 2009 - | Encounter | MED CTR EMERGENCY | | | | | | CENTER [address] | | | | 01/08/ | | [place] | | | | 2009 | | [address] | | | | | | [phone] | | | +--------+ + + + [...]
--- OUTSIDE RECORDS SUMMARY | ~2020-01-13 | XMS | Encounter Summary ---
Demographics + + + | Address | [address] | | | [place] [address] | + + + | Home Phone [...] Organization | [facility] | | | and [...] Providers + +------+ + | Care Machine Group Leader Name | Role | Phone | + +------+ + PCP | Unavailable | + +------+ + Encounter Details +--------+ + + + + | Date | Type | Department | Care Team | Description | +--------+ + + + + | 01/07/ | Hospital | [facility] | | | | 2009 - | Encounter | MED CTR EMERGENCY | | | | | | CENTER [address] | | | | 01/08/ | | [place] | | | | 2009 | | [address] | | | | | | [phone] | | | +--------+ + + + [...]
--- OUTSIDE RECORDS SUMMARY | ~2020-01-13 | XMS | Encounter Summary ---
Demographics + + + | Address | [address] | | | [place] [address] | + + + | Home Phone | | + + + | Preferred Language | Unknown | + + + | Marital Status | Single | + + + | Bahai Affiliation | 1013 | + + + | Race | Unknown | + + + | Ethnic Group | Unknown | + + + Author + + + | Author | [facility] | | | and [place] | + + + | Organization | [facility] | | | and [...] Team Providers + +------+ + | Care Boxer Operator Name | Role | Phone | [...] EMERGENCY | [address] | ([facility]) (Primary Dx) | | | | CENTER [address] | [place], [place] | | | 12/31/ | | [place], [place] | [address] | | | 2019 | | [address] | | | | | | [phone] | | | +--------+ + + + [...] Instructions Chapito Wilson MD - 01/01/2020Follow-up with Down. Return for any fevers, chills. Follow-up with [...] J?MRN: | | | | | | [id number] | | | [id number] | | | riteri | | | [...] | | 1 0 | | | [place] | | | | | | Health [...] | | | 2020 | | | [facility] | | | | | | Health [...] | | | 2020 | | | [place] | | | | | | Health [...]
--- OUTSIDE RECORDS SUMMARY | ~2020-01-13 | XMS | Encounter Summary ---
Demographics + + + | Address | [address] | | | [place] [address] | + + + | Home Phone [...] + + + | Author | [facility] | | | and [place] | + + + | Organization | [facility] | | | and [...] Team Providers + +------+ + | Care Hat Stock Laminating Machine Operator Name | Role | Phone [...] | | | | | with | [address] | [place] [address] | | | | | cervical rib | Phone: | Phone: | | | | | | [phone] | [phone] | | | | | | Fax: | Fax: | | | | | | [phone] | [phone] | +--------+ + + + + + Encounter Details +--------+---------+ + + + | Date | Type | Department | Care Team | Description | +--------+---------+ + + + | 10/16/ | Office | [facility] | Liv Pang | Thoracic outlet | | 2019 | Visit | [facility] | L, PT [address] | syndrome associated | | | | THERAPY [address] | [place] | with cervical rib | | | | [place] | [address] | | | | | [address] | | | | | | [phone] | | | +--------+---------+ + + + [...] PT - 10/16/2018 10:00 AM PST [facility] [address] [place] [phone] Physical Therapy Daily Treatment Note Date: 10/16/2018 [...] motions - slow with behind coronal plane [place] x 15 swimmer Chin tucks Head stabilization combo with rows -Modalities: MHP to neck at beginning x 10' -Other: Teach sleeping techniques to limit compression of neural system Emphasizing kristy ws and also hand/wrist position. HEP: Access Code: [email or web address] URL: [email or web address] Date: 10/16/2018 Prepared by: Liv Pang Exercises Supine Static Chest Stretch on Foam Roll - 2 minutes - 2x daily Median Nerve Flossing - 15 reps - 3x daily - 7x weekly Foam Roll Alternating Arm Flexion "Swimmer" - 10 reps - 3 sets - 30 sec hold Snow [place] on Foam Roll - 1 min - 2x daily Assessment: Working on L C1-2 helped R rotation which was her bigger complaint that L rotation. Plan: IASTM to neck versus deep tissue manually. Also continue to treat for upper cervical dysfu nction with mobs. 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
--- OUTSIDE RECORDS SUMMARY | ~2020-01-13 | XMS | Encounter Summary ---
Demographics + + + | Address | [address] | | | [place] [address] | + + + | Home Phone | | + + + | Preferred Language | Unknown | + + + | Marital Status | Single | + + + | Pentecostalism Affiliation | 1013 | + + + | Race | Unknown | + + + | Ethnic Group | Unknown | + + + Author + + + | Author | [facility] | | | and [place] | + + + | Organization | [facility] | | | and [place] [...] Team Providers + +------+ + | Care Mother Repairer Name | Role | Phone | [...] MD | | | 2018 | | [facility] | [address] | | | | | [address] | [place] | | | | | [place] | [address] | | | | | [address] | | | | | | [phone] | | | +--------+ + + + [...]
--- OUTSIDE RECORDS SUMMARY | ~2020-01-13 | XMS | Encounter Summary ---
Demographics + + + | Address | [address] | | | [place] [address] | + + + | Home Phone | | + + + | Preferred Language | Unknown | + + + | Marital Status | Single | + + + | Confucianist Affiliation | 1013 | + + + | Race | Unknown | + + + | Ethnic Group | Unknown | + + + Author + + + | Author | [facility] | | | and [place] | + + + | Organization | [facility] | [...] Team Providers + +------+ + | Care Brazing Machine Operator Name | Role | Phone [...] | | | | CENTER [address] | [place] | encounter (Primary | | | | [place], [place] | [address] | Dx) | | | | [address] | | | | | | [phone] | | | +--------+ + + + [...] Note | + + | Pardeep Swanson In - 12/07/2016 9:44 AM PDT [...]
--- OUTSIDE RECORDS SUMMARY | ~2020-01-13 | XMS | Encounter Summary ---
Demographics + + + | Address | [address] | | | [place] [address] | + + + | Home Phone | | + + + | Preferred Language | Unknown | + + + | Marital Status | Single | + + + | Mandaen Affiliation | 1013 | + + + | Race | Unknown | + + + | Ethnic Group | Unknown | + + + Author + + + | Author | [facility] | | | and [place] | + + + | Organization | [facility] | | | and [place] | [...] Team Providers + +------+ + | Care Developmental Electronics Assembler Name | Role | Phone | + +------+ + PCP | Unavailable | + +------+ + Encounter Details +--------+ + + + + | Date | Type | Department | Care Team | Description | +--------+ + + + + | 06/03/ | Hospital | [facility] | Joe Lauren | ALFRED POSTPART | | 2002 | Encounter | CONVERSION DEP [address] | [place] [phone] | FOLLOW-UP | | | | [place] | (Fax) | | | | | [place] | | | | | | [address] | | | | | | [phone] | | | +--------+ + + + [...]
--- OUTSIDE RECORDS SUMMARY | ~2020-01-13 | XMS | Encounter Summary ---
Demographics + + + | Address | [address] | | | [place] [address] | + + + | Home Phone [...] | Organization | [facility] | [...] Team Providers + +------+ + | Care Social Organization Professor Name | Role | Phone | [...] + + | 10/26/ | Anesthesia | [facility] | Jose M Ventura MD | | | 2016 | Event | MED CTR LABOR AND | [address] | | | | | DELIVERY IP [address] | [place] | | | | | [place], | [address] | | | | | [place] [address] | | | | | | [phone] | | | +--------+ + + + [...] Local Anesthetic: Lidocaine 1% Needle: 14 G TuWorld View Enterprisesy (9 cm). | | | Loss of [...]
--- OUTSIDE RECORDS SUMMARY | ~2020-01-13 | XMS | Encounter Summary ---
Demographics + + + | Address | [address] | | | [place] [address] | + + + | Home Phone [...] Author + + + | Author | [facility] | | | and [place] | + + + | Organization | [facility] | [...] Team Providers + +------+ + | Care Hide House Supervisor Name | Role | Phone | [...] MD | | | 2018 | | [facility] | [address] | | | | | [address] | [place] | | | | | [place] | [address] | | | | | [address] | | | | | | [phone] | | | +--------+ + + + [...] + + + | EXTERNAL LAB: | [facility] | 01/03/2017 | | Results for this | | TRIGLYCERIDES | e | | | procedure are in the | | | | | | results section. | + +--------+ + + + | EXTERNAL LAB: | [facility] | 01/03/2017 | | Results for this [...]
--- OUTSIDE RECORDS SUMMARY | ~2020-01-13 | XMS | Encounter Summary ---
Demographics + + + | Address | [address] | | | [place] [address] | + + + | Home Phone [...] Organization | [facility] | | | and [place] [...] Team Providers + +------+ + | Care Oxyhydrogen Welder Name | Role | Phone | + +------+ + | Katy Snaford MD | PCP | | + +------+ [...] | | | | | with | [address] | [place] [address] | | | | | cervical rib | Phone: | Phone: | | | | | | [phone] | [phone] | | | | | | Fax: | Fax: | | | | | | [phone] | [phone] | +--------+ + + + + + Encounter Details +--------+---------+ + + + | Date | Type | Department | Care Team | Description | +--------+---------+ + + + | 10/11/ | Office | [facility] | Liv Pang | Thoracic outlet | | 2019 | Visit | [facility] | L, 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 | | | | [place] | [address] | (Primary Dx) | | | | [address] | | | | | | [phone] | | | +--------+---------+ + + + [...] 3 Status: 0 Treatment Plan/Interventions PT EvaluationPT Re-[id number] - Therapeutic Cldiarxv38751 - Neuromuscular Reeducation9 7530 - Therapeutic Cqfkpulrls26158 - Manual Hyhykew75469 - Self Care/Home Xyiwmgqqrt67416 - Group Therapeutic Dpypxeojom18709 - Aquatic Therapy/Tqjqykmsa01755 - Electrical Stimulation, Attended Electronically signed by: Liv Pang PT, 10/15/2018 9:05 Patient Name: Nataly Martinez/: 1980/ Liv Kowalski P T - 10/11/2018 10:00 AM PST [facility] [place] [facility] [address] [place] [address] Physical Therapy Initial Cervical Spine Assessment Date: [...] neck pain on the right side Nataly Martinez reports that 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 She carried her warrant server tray on with the left arm. [...] see above Work status:wants to return to [employer], [place] Living situation: Currently a Single parent with [...] 4 4 Finger ABD (T1): 4 4 Oracle Forms Developer Strength: Nt Nt Deep Neck Flexors: (normal [...] Certification To: 12/07/2018 Treatment Plan/Interventions PT EvaluationPT Re-Ghvflogcsd72949 - Therapeutic Vgmmbpke16886 - Neuromuscular Reeducation9 7530 - Therapeutic Sarzwjdyzl74245 - Manual Mpkcphr20735 - Self Care/Home Iqqjiszlvh47277 - Group Therapeutic Dsofktvxnc61117 - Aquatic Therapy/Kcgrsftfz37005 - Electrical Stimulation, Attended Patient and/or family [...] also hand/wrist position. 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
--- OUTSIDE RECORDS SUMMARY | ~2020-01-13 | XMS | Encounter Summary ---
Demographics + + + | Address | [address] | | | [place] [address] | + + + | Home Phone [...] | Organization | [facility] | | | and [...] Team Providers + +------+ + | Care Book Or Script Editor Name | Role | Phone | + +------+ + PCP | Unavailable | + +------+ + Encounter Details +--------+ + + + + | Date | Type | Department | Care Team | Description | +--------+ + + + + | 06/22/ | Hospital | [facility] | Provider Not, In | Encounter for | | 2015 | Encounter | [address] | System [place] | supervision of | | | | [place] | Health and Service | normal in | | | | [address] | | second trimester | | | | [phone] | | | +--------+ + + + [...] OBSTETRIC ULTRASOUND 06/22/2015 4:05 PM (PERFORMED AT [facility] | | | [facility]) CLINICAL HISTORY: Encounter for supervision of [...]
--- OUTSIDE RECORDS SUMMARY | ~2020-01-13 | XMS | Encounter Summary ---
Demographics + + + | Address | [address] | | | [place] [address] | + + + | Home Phone [...] Organization | [facility] | [...] Team Providers + +------+ + | Care Teletype Operator Name | Role | Phone | [...] | | | | | | [place] | | | | | | [address] | | | | | | [phone] | | | +--------+ + + + [...]
--- OUTSIDE RECORDS SUMMARY | ~2020-01-13 | XMS | Encounter Summary ---
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
--- OUTSIDE RECORDS SUMMARY | ~2020-01-13 | XMS | Encounter Summary ---
Demographics + + + | Address | [address] | | | [place] [address] | + + + | Home Phone [...] Organization | [facility] | | | and [place] [...] Team Providers + +------+ + | Care Product Development Actuary Name | Role | Phone | + +------+ + | Mohinder Gage DO | PCP | | + +------+ + Reason for Visit + + + | Reason | Comments | + + + | ED Follow-up | ED follow up call to offer PCP assistance | + + + Encounter Details +--------+ + + + + | Date | Type | Department | Care Team | Description | +--------+ + + + + | 07/02/ | Telephone | [facility] | Antonia Goyal | ED Follow-up (ED | | 2019 | | MED CTR CASE | [phone] | follow up call to | | | | MANAGEMENT [address] | | offer PCP | | | | [place], | | assistance) | | | | [place] [address] | | | | | | [phone] | | | +--------+ + + + [...]
--- OUTSIDE RECORDS SUMMARY | ~2020-01-13 | XMS | Encounter Summary ---
Demographics + + + | Address | [address] | | | [place] [address] | + + + | Home Phone | | + + + | Preferred Language | Unknown | + + + | Marital Status | Single | + + + | Pentecostal Affiliation | 1013 | + + + | Race | Unknown | + + + | Ethnic Group | Unknown | + + + Author + + + | Author | [facility] | | | and [place] | + + + | Organization | [facility] | | [...] Team Providers + +------+ + | Care Harbor Tug Captain Name | Role | Phone | + +------+ + PCP | Unavailable | + +------+ + Encounter Details +--------+ + + + + | Date | Type | Department | Care Team | Description | +--------+ + + + + | 09[facility]28/ [facility] | Bogdan, | | | 2010 | Encounter | MED CTR EMERGENCY | Deuce Sainz MD [address] | | | | | [place] [address] | [address] [place] | | | | | [place] | [place] [address] | | | | | [address] | [phone] | | | | | [phone] | | | +--------+ + + + [...]
--- OUTSIDE RECORDS SUMMARY | ~2020-01-13 | XMS | Encounter Summary ---
Demographics + + + | Address | [address] | | | [place] [address] | + + + | Home Phone [...] Organization | [facility] | [...] Team Providers + +------+ + | Care Electroformer Name | Role | Phone | + [...] [place], | | | | | | [place] [address] | | | | | | [phone] | | | +--------+ + + + [...]
--- OUTSIDE RECORDS SUMMARY | ~2020-01-13 | XMS | Encounter Summary ---
Demographics + + + | Address | [address] | | | [place] [address] | + + + | Home Phone [...] Author + + + | Author | [facility] | | | and [place] | + + + | Organization | [facility] | | | and [...] Team Providers + +------+ + | Care Burr Grinder Name | Role | Phone | + +------+ + PCP | Unavailable | + +------+ + Encounter Details +--------+ + + + + | Date | Type | Department | Care Team | Description | +--------+ + + + + | 05/22/ | Hospital | [facility] | Joe Lauren | | | 2002 | Encounter | MEDICAL CENTER LABOR | [place] [phone] | | | | | AND DELIVERY [address] | (Fax) | | | | | [place] | | | | | | [place] | | | | | | [address] | | | | | | [phone] | | | +--------+ + + + [...]
--- OUTSIDE RECORDS SUMMARY | ~2020-01-13 | XMS | Encounter Summary ---
Demographics + + + | Address | [address] | | | [place] [address] | + + + | Home Phone [...] | Organization | [facility] | | | and [place] | [...] Team Providers + +------+ + | Care Beader Tender Name | Role | Phone | [...] + + | 11/15/ | Emergency | [facility] | Tomy Varner, | Medication reaction, | | 2019 | | [facility] | [place] [address] | initial encounter | | | | EMERGENCY CENTER | [place] [address] | (Primary Dx); | | | | [address] | [phone] | Urticaria; Pruritus | | | | [place], [place] | | | | | | [address] | Osiel Barreto, | | | | | [phone] | MD [address] | | | | | | [place] [address] | | | | | | [phone] | | +--------+ + + + + [...] be sent through Care Everywhere.Hives (Adult) ( [place])Drug Reaction, Other ([place])documented in this encounter Medications at Time of [...]
--- OUTSIDE RECORDS SUMMARY | ~2020-01-13 | XMS | Encounter Summary ---
Demographics + + + | Address | [address] | | | [place] [address] | + + + | Home Phone | | + + + | Preferred Language | Unknown | + + + | Marital Status | Single | + + + | Buddhist Affiliation | CHR | + + + | Race | White | + + + | Ethnic Group | Not or | + + + Author + + + | Author | [facility] | + + + | Organization | [facility] | + + + | Address | Unknown | + + + | Phone | Unavailable | + + + Support + + +---------+ + | Name | Relationship | Address | Phone | + + +---------+ + | Radha Soria | ECON | Unknown | | + + +---------+ + Care Team Providers + +------+ + | Care Engineer Booster And Exhauster Name | Role | Phone | + [...] + + | 12/10/ | Emergency | [facility] | [place], | | | 2019 | | Department [address] | MD Naldo [address] | | | | | [address] | [facility] Jaycee Soto | | | | | [facility] | [place], [place] | | | | | [place], [place] | [address] | | | | | [address] | [phone] | | | | | [phone] | | | +--------+ + + + [...] COLLECTIVE?NOTIFICATION?12/11/2019 20:25?NATALY BEDOYA?MRN: | COLLECTIVE | | [id number] Criteria Met 3 Facilities In 60 Days 5 Visits | MEDICAL | | In 12 Months Has Guidelines PDMP Security and Safety No | TECHNOLOGIES | | recent Security Events currently on file ED Care Guidelines from | | | [facility] Last Updated: 12/11/19 10:08 AM Care | | | Recommendation: Receiving mental health services through [facility]. | | | Please contact [facility] for any mental health concerns: Carlo | | | [phone] [place] [phone] Crisis Line [phone] These | | | are guidelines and [...] E.D. Visit Count (12 mo.) Facility Visits [facility] 1 | | | [facility] 2 [facility] | | | [place] 3 [facility] 11 Total 17 Note: | | | Visits indicate total known visits. Recent Emergency Department | | | Visit Summary Showing 10 most recent visits out of 18 in the past 12 | | | months Date Facility City State Type Diagnoses or Chief Complaint | | | Dec 11, 2019 [facility] [place] Emergency | | | 10,800. Medication request Dec 11, 2019 [facility] and | | | [facility] [place] Emergency 10,800. Infection | | | 10,800. L Arm/Headache 18,400. Personal history of other | | | diseases of the nervous system and 18,400. Cutaneous abscess, | | | unspecified 18,400. Other stimulant abuse, uncomplicated | | | 18,400. Paresthesia of skin Dec 08, [address] [facility] | | | [facility] Emergency Spasms Other stimulant abuse, | | | uncomplicated Other problems related to lifestyle Apr , | | | 2020 [facility]. [place] Emergency | | | Hallucinations Other stimulant abuse, uncomplicated Apr | | | 2019 [facility]. [place] Emergency Medical | | | Complacations from alc and drug abuse Spasms Other | | | stimulant abuse, uncomplicated Dec 01, 2019 [facility] | | | [facility]. [place] Emergency CP,sob Pain Tachycardia | | | Restlessness and agitation Other stimulant use, unspecified | | | with intoxication, unspecifi Panic disorder [episodic paroxysmal | | | anxiety] Nov 20, 2019 [facility] | | | Emergency needle stuck in arm Foreign Body in Skin | | | Other injury of unspecified body region, initial encounter Mar | | | 2019 [facility] Emergency Pruritis | | | Adverse effect of unspecified drugs, medicaments and biologic | | | Pruritus, unspecified Urticaria, unspecified Nov 16, 2019 | | | [facility] Emergency Arm Injury | | | Superficial foreign body of left upper arm, initial encounter | | | Contact with needle (sewing), initial encounter Encounter for | | | immunization Nov 15, 2019 [facility]. [place] | | | Emergency FB STUCK IN ARM Other psychoactive substance | | | use, unspecified, uncomplicated Other injury of unspecified body | | | region, initial encounter Recent Inpatient Visit Summary | | | No recorded inpatient visits. Care Team Provider Specialty Phone | | | Fax Service Dates Giancarlo Quarles -, [facility] | | | Health Worker Nov 16, 2019 - Current | | | [employer] Portal This patient has registered at the [facility] | | | [facility] Emergency Department For more information | | | visit: | | | [email or web address] | | | [email or web address] PLEASE NOTE: 1. Any care recommendations [...] or completeness of information provided. ? 2020 [employer] | | | [facility]. - [email or web address] | | + + + + + [...] on | | fileED Care Guidelines from [facility] [place] Updated: 12/11/19 10:08 AM Care | | Recommendation:Receiving mental health services through [facility]. Please contact | | [facility] for any mental health concerns:Carlo [phone] | | [phone] Line [phone] are guidelines and the provider should | [...] 0 E.D. Visit Count (12 mo.)Facility Visits [facility] 1 [facility] | | and [facility] [place] 2 [facility] 3 [facility] | | Center 11 Total 17 Note: Visits indicate total known visits. Recent Emergency | | Department Visit SummaryShowing 10 most recent visits out of 18 in the past 12 | | monthsDate Facility City State Type Diagnoses or Chief Complaint Dec 11, 2019 [place] | | [facility] [place] Emergency 10,800. Medication request Dec 8, | | 2019 [facility] [place] Emergency 10,800. Infection | | 10,800. L Arm/Headache 18,400. Personal history of other diseases of the nervous | | system and 18,400. Cutaneous abscess, unspecified 18,400. Other stimulant abuse, | | uncomplicated 18,400. Paresthesia of skin [facility] | | Emergency Spasms Other stimulant abuse, uncomplicated Other problems related | | to lifestyle Dec 08, 2019 [facility]. [place] Emergency Hallucinations | | Other stimulant abuse, uncomplicated Dec 06, 2019 [facility] | | Emergency Medical Complacations from alc and drug abuse Spasms Other stimulant | | abuse, uncomplicated Dec 01, 2019 [facility]. [place] Emergency | | CP,sob Pain Tachycardia Restlessness and agitation Other stimulant use, | | unspecified with intoxication, unspecifi Panic disorder [episodic paroxysmal anxiety] | | Nov 20, 2019 [facility]. [place] Emergency needle stuck in arm | | Foreign Body in Skin Other injury of unspecified body region, initial encounter Mar | | [address] [facility] Emergency Pruritis Adverse effect of | | unspecified drugs, medicaments and biologic Pruritus, unspecified Urticaria, | | unspecified Nov 16, 2019 [facility] Emergency Arm Injury | | Superficial [...] Phone Fax Service Dates Giancarlo Quarles -, [facility] | | Worker Nov 16, 2019 - Current Collective PortalThis patient has | | registered at the [facility] Emergency Department For more | | information visit: | | [email or web address] PLEASE | | NOTE: 1. Any care [...] completeness of information | | provided.? 2020 [employer] - [email or web address] | |[facility] 3 | |[facility] 11 | |Total 17 | |Note: Visits indicate total known visits. | | | |Recent Emergency Department Visit Summary | |Showing 10 most recent visits out of 18 in the past 12 months | |Date Facility City State Type Diagnoses or Chief Complaint | |Dec 11, 2019 [facility] [place] Emergency | | 10,800. Medication request | | | |Dec 11, 2019 [facility] [place] Emergency | | 10,800. Infection | | 10,800. L Arm/Headache | | 18,400. Personal history of other diseases of the nervous system and | | 18,400. Cutaneous abscess, unspecified | | 18,400. Other stimulant abuse, uncomplicated | | 18,400. Paresthesia of skin | | | |Dec 08, 2019 [facility]. [place] Emergency | | Spasms | | Other stimulant abuse, uncomplicated | | Other problems related to lifestyle | | | |Dec 08, 2019 [facility]. [place] Emergency | | Hallucinations | | Other stimulant abuse, uncomplicated | | | |Dec 06, 2019 [facility] [place] Emergency | | Medical Complacations from alc and drug abuse | | Spasms | | Other stimulant abuse, uncomplicated | | | |Dec 01, 2019 [facility]. [place] | | CP,sob | | Pain | | Tachycardia | | Restlessness and agitation | | Other stimulant use, unspecified with intoxication, unspecifi | | Panic disorder [episodic paroxysmal anxiety] | | | |Nov 20, 2019 [facility]. [place] Emergency | | needle stuck in arm | | Foreign Body in Skin | | Other injury of unspecified body region, initial encounter | | | |Nov 16, 2019 [facility] Emergency | | Pruritis | | Adverse effect of unspecified drugs, medicaments and biologic | | Pruritus, unspecified | | Urticaria, unspecified | | | |Nov 16, 2019 [facility] Emergency | | Arm Injury | | Superficial foreign body of left upper arm, initial encounter | | Contact with needle (sewing), initial encounter | | Encounter for immunization | | | |Nov 15, 2019 [facility]. [place] Emergency | | FB STUCK IN ARM | | Other psychoactive substance use, unspecified, uncomplicated | | Other injury of unspecified body region, initial encounter | | | | | | | |Recent Inpatient Visit Summary | |No recorded inpatient visits. | | | |Care Team | |Provider Specialty Phone Fax Service Dates | |Giancarlo Quarles -, [facility] Community Health Worker Nov 16, 2019 - C cony | | | |[employer] Portal | |This patient has registered at the [facility] Emergency Departmen t | |For more information visit: [email or web address] | |PLEASE NOTE: | | 1. Any care recommendations and other clinical information are provided as guidelines or for historical purposes only, and providers should exercise their own clinical judgment whe n providing care. | | 2. You may only use this information for purposes of treatment, payment or health care o perations activities, and subject to the limitations of applicable [employer] Policies. | | 3. You should consult directly with the organization that provided a care guideline or o ther clinical history with any questions about additional information or accuracy or complet eness of information provided. | | | |? 2020 [employer]. - [email or web address] | + + + + + + + | Performing | Address | City/State/Zipcode | Phone Number | | Organization | | | | + + + + + | [facility] | [address] | [place], [place] | [phone] | | TE[employer] | [address] | [address] | | + + + + + [...] +--------+---------+------+------+------+ + +---+ | | | | rdyiugvmj-JUPWSHZbobt-waqkjaufrd | | | (LET) topical gel 3 mL 3 mL, | | | topical, ONCE, 1 dose, 12/11/19 | | | at 2145 | | + +---+ | | | + +---+ documented in this encounter"
--- OUTSIDE RECORDS SUMMARY | ~2020-01-13 | XMS | Encounter Summary ---
Demographics + + + | Address | [address] | | | [place] [address] | + + + | Home Phone [...] Organization | [facility] | | | and [...] Team Providers + +------+ + | Care Yacht Master Name | Role | Phone | + [...] Refill | | 2019 | | [facility] | [address] | | | | | [address] | [place] | | | | | [place], [place] | [address] | | | | | [address] | | | | | | [phone] | | | +--------+--------+ + + + [...]
--- OUTSIDE RECORDS SUMMARY | ~2020-01-13 | XMS | Encounter Summary ---
Demographics + + + | Address | [address] | | | [place] [address] | + + + | Home Phone [...] | Organization | [facility] | | | and [place] [...] Team Providers + +------+ + | Care Pack Operator Name | Role | Phone | [...] | MED CTR EXTERNAL | MD [address] | | | | | IMAGING [address] | Brandon Longoria. [place] | | | | | [address] [place] | [place] [address] | | | | | [place] [address] | | | | | | [phone] | | | +--------+ + + + [...]
--- OUTSIDE RECORDS SUMMARY | ~2020-01-13 | XMS | Encounter Summary ---
Demographics + + + | Address | [address] | | | [place] [address] | + + + | Home Phone [...] Organization | [facility] [...] Team Providers + +------+ + | Care Homeland Security Program Specialist Name | Role | Phone | [...] | | [address] [place] | [place] [address] | | | | | [place] [address] | | | | | | [phone] | | | +--------+ + + + [...]
--- OUTSIDE RECORDS SUMMARY | ~2020-01-13 | XMS | Encounter Summary ---
Demographics + + + | Address | [address] | | | [place] [address] | + + + | Home Phone [...] | Organization | [facility] | | | and [place] [...] Team Providers + +------+ + | Care Regional Construction Manager Name | Role | Phone | [...] [address] | | | | | [address] | [place] [address] | | | | | [phone] | | | +--------+ + + + [...] of this encounter Progress Notes Palma Forde, PAPER RULER - 12/06/2019 2:44 PM PDTFLUOROSCOPY C ARM 11/16/2019 at [facility] CLINICAL INFORMATION: Foreign body left elbow. FINDINGS: Fluoro Time: .32 minute(s). Number of images: 3 DAP: 1.9675 mGycm^2 Left elbow foreign body removal, performed by Dr. Barreto. IMPRESSION: Fluoroscopic service for left elbow foreign body removal. Dictated by: Phyllis Rolon Michelle Signed by: Miguel Gonzalez Jeffrey Sign Date/Time: 11/16/2019 LEFT ELBOW TWO VIEWS 11/16/2019 at [facility] CLINICAL INFORMATION: Left arm injury, Foreign body. [...] EXTREMITY LEFT NON-VASCULAR LIMITED on 11/16/2019 at [facility] REASON FOR EXAM: arm, decubital fossa; COMPARISON: NONE. IMPRESSION: Limited sonographic interrogation in the area of clinical interest does not identify a sonographically apparent foreign body within the interrogated soft tissues. This report was X-RAY ELBOW 2 VIEWS LEFT 11/15/2019 at [facility] REASON FOR EXAM: Female, 39 years old, [...]
--- OUTSIDE RECORDS SUMMARY | ~2020-01-13 | XMS | Encounter Summary ---
Demographics + + + | Address | [address] | | | [place] [address] | + + + | Home Phone [...] Organization | [facility] | [...] Team Providers + +------+ + | Care Shop Assistant Name | Role | Phone | [...] + + | 02/26/ | Office | [facility] | Darryl Murry, | Acute bronchitis, | | 2018 | Visit | CARE [address] | MD [address] | unspecified organism | | | | [place] | [place] | (Primary Dx); Upper | | | | [address] | [address] | respiratory tract | | | | [phone] | | infection, | | | | [...] information carefully each time. Talk to your photographer regarding the use of this medicine in children. While this drug m ay be prescribed for children as young as 12 years for selected conditions, precautions do a pply. What side effects may I notice from receiving this medicine? Side effects that you should report to your doctor or health rn intensive care unit as soon as p ossible: allergic reactions [...] attention (report to your doctor or health rn intensive care unit if they continue or are bothersome): constipation [...] as directed by your doctor or health rn intensive care unit. Do not take more than t he recommended dose. You may develop tolerance to this medicine if you take it for a long ti me. Tolerance means that you will get less cough relief with time. Tell your doctor or [facility] if your symptoms do not improve or [...] be told to take ibuprofen or other gecn-zjm-njtbnec m edicines. These help relieve inflammation in [...] of taking antibio tics Date Last Reviewed: 08/04/201619999386-9919 [employer]. [address] [place] [address]. All righ ts reserved. This information is [...] as needed for Cough. 120 mL 0 Mqirteidazgoyiv-CTTD-AH (DAYQUIL MULTI-SYMPTOM COLD/FLU PO) Take by mouth. [...]
--- OUTSIDE RECORDS SUMMARY | ~2020-01-13 | XMS | Encounter Summary ---
Demographics + + + | Address | [address] | | | [place] [address] | + + + | Home Phone [...] | Organization | [facility] | | | and [place] [...] Providers + +------+ + | Care Industrial Cook Name | Role | Phone | + +------+ + PCP | Unavailable | + +------+ + Encounter Details +--------+ + + + + | Date | Type | Department | Care Team | Description | +--------+ + + + + | 07/01/ | Hospital | [facility] | Joe Lauren | Other abnormal | | 2001 | Encounter | [facility] | [place] [phone] | product of | | | | OUTPATIENT | (Fax) | conception | | | | PROCEDURES [address] | | | [address] | | | | | | [place] | | | | | | [address] | | | | | | [phone] | | | +--------+ + + + [...]
--- OUTSIDE RECORDS SUMMARY | ~2020-01-13 | XMS | Encounter Summary ---
Demographics + + + | Address | [address] | | | [place] [address] | + + + | Home Phone [...] Organization | [facility] | | | and [...] Team Providers + +------+ + | Care Grade Teacher Name | Role | Phone | + +------+ + | Katy Sanford MD | PCP | | + +------+ + Encounter Details +--------+ + + + + | Date | Type | Department | Care Team | Description | +--------+ + + + + | 03/20/ | Abstract | [facility] | Katy Sanford MD | | | 2018 | | [facility] | [address] | | | | | [address] | [place] | | | | | [place] | [address] | | | | | [address] | | | | | | [phone] | | | +--------+ + + + [...]
--- OUTSIDE RECORDS SUMMARY | ~2020-01-13 | XMS | Encounter Summary ---
Demographics + + + | Address | [address] | | | [place] [address] | + + + | Home Phone [...] Organization | [facility] | | [...] Team Providers + +------+ + | Care Stripper Shovel Operator Name | Role | Phone | [...] | | | | [place] | [address] | | | | | [address] | | | | | | [phone] | | | +--------+ + + + [...] documented in this encounter Results External Lab: [facility] Risk HPV (08/19/2013) + + + + [...]
--- OUTSIDE RECORDS SUMMARY | ~2020-01-13 | XMS | Encounter Summary ---
Demographics + + + | Address | [address] | | | [place] [address] | + + + | Home Phone | | + + + | Preferred Language | Unknown | + + + | Marital Status | Single | + + + | Religion Affiliation | 1013 | + + + | Race | Unknown | + + + | Ethnic Group | Unknown | + + + Author + + + | Author | [facility] | | | and [place] | + + + | Organization | [facility] | | [...] Team Providers + +------+ + | Care Boiling Off Winder Name | Role | Phone | [...] + + | 11/15/ | Emergency | [facility] | Osiel Barreto, | Injury due to | | 2019 | | MEDICAL CENTER | MD [address] | non-hypodermic | | | | EMERGENCY CENTER | [place] [address] | needle (Primary Dx); | | | | [address] | [phone] | Metal foreign body | | | | [place], [place] | | in upper extremity, | | | | [address] | | left, initial | | | | [phone] | | encounter; | | | | [...] Everywhere.Foreign Body, S oft Tissue (Not Removed) (Lebanese)documented in this encounter Medications at Time of [...] J?MRN: | | | | | | [id number] | | | [id number] | | | riteri | | | [...] the signing radiologist was present for the avlarez portions | | | of the exam. [...] | | | | Dictated by: Phyllis Rloon Michelle | | | | Signed by: [...] | +---+---+ + +-------+ +---------+---+ + | xclifem-seftjkntcd-wfyqmjtfe | Given | 11/16/19 | 0.5 mLs [...]
--- OUTSIDE RECORDS SUMMARY | ~2020-01-13 | XMS | Encounter Summary ---
Demographics + + + | Address | [address] | | | [place] [address] | + + + | Home Phone [...] Organization | [facility] | | [...] Team Providers + +------+ + | Care Cardiac Technologist Name | Role | Phone | + [...] + + | 06/21/ | Telephone | [facility] | Katy Sanford MD | Other (Son diagnosed | | 2017 | | [facility] [place] | [address] | with pertussis. ) | | | | [address] | [place] | | | | | [place], [place] | [address] | | | | | [address] | | | | | | [phone] | | | +--------+ + + + [...]
--- OUTSIDE RECORDS SUMMARY | ~2020-01-13 | XMS | Encounter Summary ---
Demographics + + + | Address | [address] | | | [place] [address] | + + + | Home Phone [...] | Organization | [facility] | [...] Team Providers + +------+ + | Care Revolving Inventory Clerk Name | Role | Phone | + +------+ + PCP | Unavailable | + +------+ + Encounter Details +--------+ + + + + | Date | Type | Department | Care Team | Description | +--------+ + + + + | 04/09/ | Hospital | [facility] | Saleem Toure, | | | 2011 | Encounter | MED CTR EMER[facility]Y | [address] | | | | | CENTER [address] | [facility] [place] [facility] [place] | | | | | [place] | [place] [address] | | | | | [address] | [phone] | | | | | [phone] | | | +--------+ + + + [...]
--- OUTSIDE RECORDS SUMMARY | ~2020-01-13 | XMS | Encounter Summary ---
Demographics + + + | Address | [address] | | | [place] [address] | + + + | Home Phone | | + + + | Preferred Language | Unknown | + + + | Marital Status | Single | + + + | Sikh Affiliation | 1013 | + + + | Race | Unknown | + + + | Ethnic Group | Unknown | + + + Author + + + | Author | [facility] | | | and [place] | + + + | Organization | [facility] | | | and [...] Team Providers + +------+ + | Care Donor Services Manager Name | Role | Phone | [...] | +--------+ + + + + | // | Emergency | [facility] | Rupesh Butt | Josephonephritis | | 2020 | | MED CTR EMERGENCY | MD Gal [address] | (Primary Dx) | | | | CENTER [address] | [address] [place] | | | | | [place], [place] | [place] [address] | | | | | [address] | [phone] | | | | | [phone] | | | +--------+ + + + [...] sent through Care Everywhere.Urinary Tract, Female Anatomy (Djiboutian)documented in this encounter Medications at Time of [...] (L) | 9 - 23 mg/dL | [facility] | | | | | | [facility] | | | | | | MEDICAL | | | | | | CENTER - | | | | | | LABORATORY | | + + + + + + | Creatinine | 0.58 | 0.55 - 1.02 | [facility] | | | | | mg/dL | [facility] | | | | | | MEDICAL | | | | | | CENTER - | | | | | | LABORATORY | | + + + + + + | eGFR if not | >60Comment: GLOMERULAR | >=60 | [facility] | | | | FILTRATION | mL/min/1.73m2 | [facility] | | | UGANDAN | RATE,ESTIMATED | | MEDICAL | | | | mL/min/1.49s9Tncu than | | CENTER - | | [...] [address] | [place] | [phone] | | [facility] | | [address] | | | - LABORATORY | | [...] [address] | [place] | [phone] | | [facility] | | [address] | | | - LABORATORY | | [...] ext. | | | | | | [phone] with request. | | | | + [...] organisms seen. | [facility] | | | [facility] | | | [facility] | | | - LABORATORY | + + + + + + + + | Performing | Address | City/State/Zipcode | Phone Number | | Organization | | | | + + + + + | [facility] | [address] | [place], [place] | [phone] | | [facility] | | [address] | | | - LABORATORY | | [...] [address] | [place] | [phone] | | [facility] | | [address] | | | - LABORATORY | | [...] 1.030 | [facility] | | | [place], | | | [facility] | | [...] [address] | [place] | [phone] | | [facility] | | [address] | | | - LABORATORY | | [...]
--- OUTSIDE RECORDS SUMMARY | ~2020-01-13 | XMS | Encounter Summary ---
Demographics + + + | Address | [address] | | | [place] [address] | + + + | Home Phone [...] Organization | [facility] | [...] Team Providers + +------+ + | Care Waterworks Employee Name | Role | Phone | + [...] Brandon Mccormack | | | | | [address] | [place] [address] | | | | | [phone] | | | +--------+ + + + [...] as of this encounter Progress Notes Palma Frode CMA - 12/06/2019 1:45 PM PDTX-RAY ELBOW 2 VIEWS LEFT [facility] REASON FOR EXAM: Female, 39 years old, [...] body as described. This report was Electronically sign ed by Palma Forde CMA at 12/06/2019 1:54 PM PDTdocumented in this encounter Plan of Treatment Not on filedocumented as of this encounter Visit Diagnoses Not on filedocumented in this encounter"
--- OUTSIDE RECORDS SUMMARY | ~2020-01-13 | XMS | Encounter Summary ---
Demographics + + + | Address | [address] | | | [place] [address] | + + + | Home Phone [...] Organization | [facility] | | [...] Team Providers + +------+ + | Care Piece Dye Worker Name | Role | Phone | [...] + + | 10/17/ | Emergency | [facility] | Bhupinder Yadav, | Alcoholic | | 2020 | | MED CTR EMERGENCY | MD [address] | intoxication without | | | | CENTER [address] | [place], [place] | complication (HCC) | | | | [place], [place] | [address] | (Primary Dx) | | | | [address] | | | | | | [phone] | | | +--------+ + + + [...] be sent through Care Everywhere.Alcohol Intoxic ation (Croatian)documented in this encounter Medications at Time of [...]
--- OUTSIDE RECORDS SUMMARY | ~2020-01-13 | XMS | Encounter Summary ---
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
--- OUTSIDE RECORDS SUMMARY | ~2020-01-13 | XMS | Encounter Summary ---
Demographics + + + | Address | [address] | | | [place] [address] | + + + | Home Phone [...] Organization | [facility] | | [...] Team Providers + +------+ + | Care Cnc Field Service Engineer Name | Role | Phone | [...] + | 03/12/ | Telephone | [facility] | Katy Sanford MD | Annual Exam | | 2019 | | MEDICINE [place] | [address] | | | | | [address] | [place] | | | | | [place] | [address] | | | | | [address] | | | | | | [phone] | | | +--------+ + + + [...]
--- OUTSIDE RECORDS SUMMARY | ~2020-01-13 | XMS | Encounter Summary ---
Demographics + + + | Address | [address] | | | [place] [address] | + + + | Home Phone [...] | Organization | [facility] | | | and [...] Team Providers + +------+ + | Care Inside Sales Trainer Name | Role | Phone | + [...] | | | | | with | [address] | [place], [place] | | | | | cervical rib | Phone: | [address] | | | | | | [phone] | Phone: | | | | | | Fax: | [phone] | | | | | | [phone] | Fax: | | | | | | | [phone] | +--------+ + + + + + Reason for Visit + + + | Reason | Comments | + + + | Referral | | + + + Encounter Details +--------+ + + + + | Date | Type | Department | Care Team | Description | +--------+ + + + + | 10// | Telephone | [facility] | Katy Sanford MD | Referral | | 2018 | | MEDICINE [place] | [address] | | | | | [address] | [place] | | | | | [place] | [address] | | | | | [address] | | | | | | [phone] | | | +--------+ + + + [...]
--- OUTSIDE RECORDS SUMMARY | ~2020-01-13 | XMS | Encounter Summary ---
Demographics + + + | Address | [address] | | | [place] [address] | + + + | Home Phone [...] Organization | [facility] | | [...] Team Providers + +------+ + | Care Redipper Name | Role | Phone | + [...] | +--------+ + + + + | 10/18/ | Telephone | [facility] [place] | Gill Cantu, | Appointment | | 2019 | | [facility] | Aide | | | | | THERAPY [address] | | | | | [address] [place] | | | | | | [address] | | | | | | [phone] | | | +--------+ + + + [...]
--- OUTSIDE RECORDS SUMMARY | ~2020-01-13 | XMS | Encounter Summary ---
Demographics + + + | Address | [address] | | | [place] [address] | + + + | Home Phone [...] + | Organization | [facility] | | [...] Team Providers + +------+ + | Care Tight Barrel Inspector Name | Role | Phone | + +------+ + | Ktay Sanford MD | PCP | | + [...] Refill | | 2019 | | MEDICINE [place] | [address] | | | | | [address] | [place] | | | | | [place], [place] | [address] | | | | | [address] | | | | | | [phone] | | | +--------+--------+ + + + [...]
--- OUTSIDE RECORDS SUMMARY | ~2020-01-13 | XMS | Encounter Summary ---
Demographics + + + | Address | [address] | | | [place] [address] | + + + | Home Phone [...] | Organization | [facility] | | [...] Team Providers + +------+ + | Care Hand Scudder Name | Role | Phone | + [...] Specialty | Surgery / | Diagnoses | Mahamedmartha, | Santy, | | | Services | General | Foreign | Jim | MD Vivien | | | Required | Surgery | body in skin | MD Deuce | [address] | | | | | | [address] | [place], | | | | | | [place] | [place] [address] | | | | | | [place], [place] | Phone: | | | | | | [address] | [phone] | | | | | | Phone: | Fax: | | | | | | [phone] | [phone] | | | | | | Fax: | | | | | | | [phone] | | + + + + + [...] 11/19/ | Emergency | [facility] | Jim Hurd | Foreign body in skin | | 2020 | | MED CTR EMERGENCY | MD Deuce [address] | (Primary Dx) | | | | CENTER [address] | [address] [place] | | | | | [place], [place] | [place] [address] | | | | | [address] | [phone] | | | | | [phone] | | | +--------+ + + + [...] Everywhere.Foreign Body, S oft Tissue (Not Removed) (Serbian)documented in this encounter Medications at Time of [...] body in | Ordered: 11/20/2019 | | [facility] - | Referral | e | skin | | | Akash//Madera/S | | | | | | teinle [...] J?MRN: | | | | | | [id number] | | | [id number] | | | riteri | | | [...] | | | otify/ | | | [id number] | | | 3d-f7d | | | [...]
--- OUTSIDE RECORDS SUMMARY | ~2020-01-13 | XMS | Encounter Summary ---
Demographics + + + | Address | [address] | | | [place] [address] | + + + | Home Phone [...] + + + | Author | [facility] | | | and [place] | + + + | Organization | [facility] | | | [...] Team Providers + +------+ + | Care Evp Strategy Name | Role | Phone | + [...] | | [address] [place] | [place] [address] | | | | | [place] [address] | | | | | | [phone] | | | +--------+ + + + [...]
--- OUTSIDE RECORDS SUMMARY | ~2020-01-13 | XMS | Encounter Summary ---
Demographics + + + | Address | [address] | | | [place] [address] | + + + | Home Phone [...] | Organization | [facility] | | | and [place] [...] Team Providers + +------+ + | Care Web Marketing Strategist Name | Role | Phone | + [...] Sanford MD | Medication Refill | | 2017 | | MEDICINE [place] | [address] | | | | | [address] | [place] | | | | | [place], [place] | [address] | | | | | [address] | | | | | | [phone] | | | +--------+--------+ + + + [...]
--- OUTSIDE RECORDS SUMMARY | ~2020-01-13 | XMS | Encounter Summary ---
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
--- OUTSIDE RECORDS SUMMARY | ~2020-01-13 | XMS | Encounter Summary ---
Demographics + + + | Address | [address] | | | [place] [address] | + + + | Home Phone [...] Organization | [facility] | [...] Team Providers + +------+ + | Care Filter Helper Name | Role | Phone | [...] | | | ST [place] | [place] [address] | | | | | | [place], [place] | Phone: | | | | | | [address] | [phone] | | | | | | Phone: | Fax: | | | | | | [phone] | [phone] | | | | | | Fax: | | | | | | | [phone] | | + + + + + [...] | | | | CENTER [address] | [address] [place] | | | | | [place], [place] | [place] [address] | | | | | [address] | [phone] | | | | | [phone] | | | +--------+ + + + [...] Everywhere.Foreign Body, S oft Tissue (Not Removed) (Sami)documented in this encounter Medications at Time of [...] body in | Ordered: 11/20/2019 | | [facility] - | Referral | e | skin [...] J?MRN: | | | | | | [id number] | | | [id number] | | | riteri | | | [...] | | | otify/ | | | [id number] | | | 3d-f7d | | | [...]
--- OUTSIDE RECORDS SUMMARY | ~2020-01-13 | XMS | Encounter Summary ---
Demographics + + + | Address | [address] | | | [place] [address] | + + + | Home Phone [...] | Organization | [facility] [...] Team Providers + +------+ + | Care Brasswind Instrument Repairer Name | Role | Phone | + +------+ + PCP | Unavailable | + +------+ + Encounter Details +--------+ + + + + | Date | Type | Department | Care Team | Description | +--------+ + + + + | 07/09/ | [facility] | [facility] | Rhoda Valverde | | | 2010 | Encounter | MED CTR EMERGENCY | DO Arsenio Mccurdy | | | | | [place] [address] | [place] | | | | | [place] | [address] | | | | | [address] | | | | | | [phone] | | | +--------+ + + + [...] | + +--------+ + + + | [facility] | Routin | 07/09/2011 | | Results [...] + + documented in this encounter Results Wing (07/09/2011 4:03 PM PDT) + + + [...] [address] | [place] | [phone] | | [facility] | | [address] | | | - LABORATORY | | | | + + + + + | [facility] | [address] | [place], [place] | | | [facility] | | [address], [facility] | | | - LABORATORY | | | | + + + + + US OB Limited 1 or More Fetus (07/09/2011 3:04 PM PDT) + + | Specimen | + + | | + + + + + | Narrative | Performed At | + + + | [facility] Diagnostic Imaging Department | [facility] | | [address], [facility] | [facility] | | LIMITED OBSTETRICAL ULTRASOUND | DIAG IMG | | CLINICAL HISTORY: 17 WEEKS 5 DAYS BY PRIOR ULTRASOUNDS. LOW | | | PELVIC PAIN. FINDINGS: Limited transabdominal images are | | | reviewed. A report from an obstetric ultrasound perform ed | | | yesterday in [place] is available for comparison. A single, | [...] Transcribed Date/Time: | | | 07/10/2011 14:12 Aircraft Time Clerk: <Electronically Signed | | | by Rob Fields MD> 07/11/11 0731 | | + + + + + | Procedure Note | + + | Pardeep Swanson Conversion - 10/11/2013 4:10 PM [facility] | | Diagnostic Imaging Department [address] [facility] | | LIMITED OBSTETRICAL ULTRASOUND CLINICAL HISTORY: 17 | | WEEKS 5 DAYS BY PRIOR ULTRASOUNDS. LOW PELVIC PAIN. FINDINGS: Limited transabdominal | | images are reviewed. A report from an obstetric ultrasound performed yesterday in | | [place] is available for comparison. A single, living, [...] 10:20 | |Transcribed Date/Time: 07/10/2011 14:12 | |Aircraft Time Clerk: NEY | |<Electronically Signed by Rob Fields MD> 07/11/11 0731 | + + + +---------+ + + | Performing | Address | City/State/Zipcode | Phone Number | | Organization | | | | + +---------+ + + | [place] | | | | | [facility] | | | | + +---------+ + + documented in this encounter Visit Diagnoses Not on filedocumented in this encounter"
--- OUTSIDE RECORDS SUMMARY | ~2020-01-13 | XMS | Encounter Summary ---
Demographics + + + | Address | [address] | | | [place] [address] | + + + | Home Phone [...] | Organization | [facility] [...] Team Providers + +------+ + | Care Starch Mangle Tender Name | Role | Phone | [...] + + | 09/20/ | Emergency | [facility] | Bogdan, | Influenza (Primary | | 2017 | | MED CTR EMERGENCY | Deuce Sainz MD [address] | Dx) | | | | [place] [address] | [facility] | | | | | [place] | [place] [address] | | | | | [address] | [phone] | | | | | [phone] | | | +--------+ + + + [...] attachments cannot be sent through Care Everywhere.INFLUENZA ([facility])OSELTAMIVIR CAPSULES (BENINESE)documented in this encounter Medications at Time of [...]
--- OUTSIDE RECORDS SUMMARY | ~2020-01-13 | XMS | Encounter Summary ---
Demographics + + + | Address | [address] | | | [place] [address] | + + + | Home Phone [...] | Organization | [facility] | | | and [place] [...] Team Providers + +------+ + | Care Video Rental Clerk Name | Role | Phone | + +------+ + PCP | Unavailable | + +------+ + Encounter Details +--------+ + + + + | Date | Type | Department | Care Team | Description | +--------+ + + + + | 05/22/ | Hospital | [facility] | [place] | | | 2002 | Encounter | MEDICAL CENTER LABOR | [place] [phone] | | | | | AND DELIVERY [address] | (Fax) | | | | | [address] | | | | | | [place] | | | | | | [address] | | | | | | [phone] | | | +--------+ + + + [...]
--- OUTSIDE RECORDS SUMMARY | ~2020-01-13 | XMS | Encounter Summary ---
Demographics + + + | Address | [address] | | | [place] [address] | + + + | Home Phone [...] + + + | Author | [facility] | | | and [place] | + + + | Organization | [facility] | [...] Team Providers + +------+ + | [employer]k1 Operator Name | Role | Phone | [...] + + | Closed | Specialty | | Diagnoses | Darcie | | | | Services | Services / | Delivery | Edi Kumar MD | | | | Required | | normal | [address] | | | | | and | | [address] | | | | | | | [place] | | | | | | | [address] | | | | | | | Phone: | | | | | | | [phone] | | | | | | | Fax: | | | | | | | [phone] | | +--------+ + + + + + (Routine) +--------+ + + + + + | Status | Reason | Specialty | Diagnoses / | Referred By | Referred To | | | | | Procedures | Contact | Contact | +--------+ + + + + + | Closed | Specialty | | Diagnoses | Darcie, | | | | Services | and | Delivery | Edi Kumar MD | | | | Required | | normal | [address] | | | | | | | [address] | | | | | | | [place] | | | | | | | [address] | | | | | | | Phone: | | | | | | | [phone] | | | | | | | Fax: | | | | | | | [phone] | | +--------+ + + + + + Reason for Visit Auth/Cert +--------+--------+ + [...] + + | 10/26/ | Hospital | [facility] | Edi Sprague | Delivery normal | | 2016 - | Encounter | [facility] | MD José [address] | (Primary Dx) | | | | [address] | [place] | | | 10/28/ | | [place] | [address] | | | 2015 | | [address] | | | | | | [phone] | | | +--------+ + + + [...] + + + | Blood Pressure | 90/60 | 10/28/2015 7:54 AM | | | | | PST | | + + + + + | Pulse | 84 | 10/28/2015 7:54 AM | | | | | PST | | + + + + + | Temperature | 36.9 C (98.4 F) | 10/28/2015 7:54 AM | | | | | PST | | + + + + + | Respiratory Rate | 16 | 10/28/2015 7:54 AM | | | | | PST | | + + + + + | Oxygen Saturation | 97% | 10/27/2015 3:31 AM | | | | | PST [...] + + documented in this encounter Discharge Summaries Edi Sprague MD - 10/28/2015 7:26 AM PST DISCHARGE SUMMARY-OBSTETRICS Date of Admission: 10/26/2015 Date of Discharge: 10/28/2015 ATTENDING CLINICIAN: Edi Sprague MD PRIMARY METAL MOCKUP MAKER: No Physician on file HISTORY OF PRESENT ILLNESS 35 y.o. [id number] presented inlabor. HOSPITAL COURSE: Nataly Martinez is a 35 y.o.-year-old, now female (Estimated Date of Delivery: ) who had a delivered by Vaginal, Spontaneous Delivery . At 10/26/2015 2156 ,Nataly barrow ore a living male 2.999 kg (6 lb 9.8 oz) infant, . scores were 8 /9 at one and fi ve minutes respectively. Estimated Blood loss was normal. Her labor course was uncomplicated. Her course was unremarkable. Pain was well controlled and she was ambulating we ll without any difficulty. She had normal bowel an urinary function. Her vital signs were stable and afebrile. Nursing was going well. She was discharged home in stable condition . She was given written post operative instructions in regards to her activity level and leroy itations. DISPOSITION: home CONDITION UPON DISCHARGE: stable DISCHARGE MEDICATIONS: Discharge Medications New Medications Details HYDROcodone-acetaminophen 5-325 mg per tablet Take 1 tablet by mouth every 6 hours as needed for Pain. aka: NORCO ibuprofen 600 MG tablet Take 1 tablet by mouth every 8 hours as needed for Pain for up to 10 days. aka: ADVIL,MOTRIN Unchanged Medications Details calcium carbonate 500 mg chewable tablet Take 2 tablets by mouth Daily. aka: TUMS 27-0.8 mg multivitamin tablet Take 1 tablet by mouth Daily. Discontinued Medications promethazine 12.5 MG tablet aka: PHENERGAN There is no immunization history for the selected administration types on file for this pat ient. FOLLOWUP: 6 weeks PRECAUTIONS: Pelvic rest for 6 weeks DIET: Regular Electronically Signed by: Edi Sprague MD 10/28/2015 7:26 documented in this encounter Discharge Instructions Instructions Simran Mahoney RN - 10/28/2015 After a Vaginal After having a baby, your body may be very tired. It can take time to recover from a vagina l delivery. You may stay in the hospital or center from 1 to 4 days.In some cases, y ou may be able to go home the same day. Right after the delivery Your temperature and blood pressure will be taken until they are stable. A nurse or other ealtare provider will observe you as you rest. You may have afterbirth pains. These are cr amps caused by the uterus shrinking. Sanitary pads are used to absorb the discharge of the u terine lining. To ensure that you aren t bleeding too much, the pad will be checked. And t he firmness of your uterus will be checked. To do this, a nurse will gently push down on you r abdomen. If you had anesthesia, you ll be watched closely until you can feel and move yo ur toes. If you have perineal pain (pain between the vagina and anus), an ice pack can help. care While still in the hospital or center, you ll learn how to hold and feed your baby. You willalso be given instructions on how to care for your baby. This includes bathing an d feeding. Preparing to go home You may be anxious to go home as soon as possible. Before you and your baby go home, a [facility] will check to be sure you are healthy enough to take care of your baby and y ourself. You re ready to go home when: You can walk to the bathroom without help. You can eat solid food and swallow pills (if needed). You have no sign of infection or other health problems, including fever. Before leaving the hospital or center, you ll be given written instructions for pierce e self-care after vaginal delivery. Be sure to follow these instructions carefully. If you h ave questions or concerns, talk about them now. If you had stitches You may have received stitches in the skin near your vagina. The stitches might have closed an episiotomy (an incision that enlarges the opening of the vagina). Or you may have needed stitches to repair torn skin. Either way, your stitches should dissolve within weeks. Until then, you can help reduce discomfort, aid healing, and reduce your risk of infection by lizzy ping the stitches clean. These tips can help: Gently wipe from front to back after you urinate or have a bowel movement. After wiping, spray warm water on the area. Or you can have a sitz bath. This means sitt ing in a tub with a few inches of water in it. Then pat the area dry or use a hairdryer on a cool setting. Do not use soap or any solution except water on the area. You can take a shower unless told not to. Change sanitary pads at least every 2-[address] cold or heat packs on the area as directed by your doctors or nurses. Keep a thin towel between the pack and your skin. Sit on firm seats so the stitches pull less. follow-up Schedule a follow-up exam with your health care provider for about 6 weeks after delivery. During this exam, your uterus and vaginal area will be checked. Contact your [facility] care provider if you think you or your baby are having any problems. [id number] [employer]. [address] [place] [id number]. All righ ts reserved. This information is not intended as a substitute for professional medical care. Always follow your healthcare professional's instructions. documented in this encounter Medications at Time [...] documented as of this encounter Progress Notes Simran Mahoney RN - 10/28/2015 11:05 AM PSTPt given verbal and written discharge instructio ns. Questions answered and she verbalizes understanding. Follow up appointments scheduled. D ischarged to home in stable condition with baby and family. Edi Wright MD - 10/28/2015 7:23 AM PSTObstetric s Progress Note Subjective: Patient doing well without any concerns Pain: Well controlled : well with good latch Lochia: Minimal Ambulating: Without any difficulty or dizziness Patient requests discharge home Maternal VS's: BP: 94/56 mmHg Pulse: 82 Temp: 36.7 C (98.1 F) Exam: General: No acute distress, baby at bedside Abdomen: Soft, non-tender, non-distended Fundus: Firm, below the umbilicus Extremities: No calf tenderness, appropriate edema AssesmentPlan: Day #2 s/p normal spontaneous vaginal delivery recovering well stable for discha rge -d/c home with instructions and follow-up scheduled Electronically Signed by: Edi Sprague MD 10/28/2015 7:23 Keena Fournier RN - 10/27/2015 3:48 PM [id number] report given to Antonia and Simran rns who are assuming care. Electronically signed by: Keena Pablo RN 10/27/2015 15:49 Linden Wright MD - 10/27/2015 7:00 AM PSTObstetrics Progress Note Subjective: Patient doing well without any concerns Pain: Well controlled : well with good latch Lochia: Minimal Ambulating: Without any difficulty or dizziness Patient requests discharge home Maternal VS's: BP: 93/56 mmHg Pulse: 85 Temp: 36.5 C (97.7 F) Exam: General: No acute distress, baby at bedside Abdomen: Soft, non-tender, non-distended Fundus: Firm, below the umbilicus Extremities: No calf tenderness, appropriate edema AssesmentPlan: Day #0-1 s/p normal spontaneous vaginal delivery recovering well Gestational diabetes Plan: Routine care. No need to check blood sugars. Probable discharge home tomorrow. Electronically Signed by: Edi Sprague MD 10/27/2015 7:01 Nicci Donahue RN - 10/26/2015 6:44 PM PST PT here with more intense contractions than earlier today. Has changed from 1cm at 1130 toda y to now 3-[address] Sprague called for orders. EFM's placed. IV placed,Anesthesia called. Report to Ralph ESTRELLA. documented in this encounter Plan of Treatment + + +--------+ + + | Name | Type | Priori | Associated Diagnoses | Order Schedule | | | | ty | | | + + +--------+ + + | Amb referral to | Outpatient | Routin | Delivery normal | 1 Occurrences | | | Referral | e | | starting 10/28/2015 | | | | | | until 10/25/2016 | + + +--------+ + + | Ambulatory referral | Outpatient | Routin | Delivery normal | 1 Occurrences | | to | Referral | e | | starting 10/28/2015 | | | | | | until 10/25/2016 | + + +--------+ + + documented as of this encounter Procedures + +--------+ + + + | Procedure Name | Priori | Date/Time | Associated Diagnosis | Comments | | | ty | | | | + +--------+ + + + | CBC NO DIFFERENTIAL | Routin | 10/27/2015 | | Results for this | | | e | 6:19 AM | | procedure are in the | | | | PST | | results section. | + +--------+ + + + | POC GLUCOSE | Routin | 10/26/2015 | | Results for this | | | e | 8:05 PM | | procedure are in the | | | | PST | | results section. | + +--------+ + + + | CBC NO DIFFERENTIAL | Routin | 10/26/2015 | | Results for this | | | e | 7:13 PM | | procedure are in the | | | | PST | | results section. | + +--------+ + + + documented in this encounter Results CBC no Differential (10/27/2015 6:19 AM PST) + + + + + + | Component | Value | Ref Range | Performed | Pathologist | | | | | At | Signature | + + + + + + | WBC | 20.6 (H) | 4.0 - 11.0 K/uL | [facility] | | | | | | [facility] | | | | | | [facility] | | + + + + + + | RBC | 3.59 (L) | 3.70 - 5.20 | [facility] | | | | | M/uL | [facility] | | [facility] | [facility] | | | | | | [facility] | | + + + + + + | Hemoglobin | 11.5 | 11.5 - 16.0 | [facility] | | | | | g/dL | [facility] | | [facility] | | | | [facility] - | | | | | | [facility]ATORY | | + + + + + + | Hematocrit | 34.4 | 34.0 - 47.0 % | [facility] | | | | | | [facility] | | | [facility] - | | | | | | [facility]AT[facility] | | + + + + + + | MCV | 95.8 | 83.0 - 101.0 fL | [facility] | | | | | | [facility] | | | [facility] - | | | | | | [facility]AT[facility] | | + + + + + + | MCH | 32.1 | 28.0 - 35.0 pg | [facility] | | | | | | [facility] | [facility] | [facility] | | | | | [facility] - | | | | | | [facility] | | + + + + + + | MCHC | 33.5 | 32.0 - 36.0 | [facility] | | | | | g/dL | [facility] | [facility] | | | [facility] - | | | | | | [facility] | | + + + + + + | RDW-CV | 13.2 | <15.0 % | [facility] | | [facility] | | | | | [facility] - | | | | | | [facility]ATORY | | + + + + + + | Platelet | 257 | 140 - 440 K/uL | [facility] | | | Count | | | [facility] | [facility] | [facility] | | | | | [facility] - | | | | | | LAB[facility]ATORY | | + + + + + + | MPV | 8.7 | fL | [facility] | | | [...] [address] | [place] | [phone] | | [facility] | | [address] | | | - LABORATORY | | | | + + + + + POC Glucose (10/26/2015 8:05 PM PST) + +-------+ + + + | Component | Value | Ref Range | Performed | Pathologist | | | | | At | Signature | + +-------+ + + + | Glucose, | 85 | 70 - 150 mg/dL | [facility] | | | POC | | | [facility] | | [...] [address] | [place] | [phone] | | [facility] | | [address] | | | - LABORATORY | | | | + + + + + CBC no Differential (10/26/2015 7:13 PM PST) + + + + + + | Component | Value | Ref Range | Performed | Pathologist | | | | | At | Signature | + + + + + + | WBC | 22.9 (H) | 4.0 - 11.0 K/uL | [facility] | [facility] | | | | | | [facility] | | + + + + + + | RBC | 3.82 | 3.70 - 5.20 | [facility] | | | | | M/uL | [facility] | [facility] | | | | | [facility] - | | | | | | [facility]ATORY | | + + + + + + | Hemoglobin | 12.3 | 11.5 - 16.0 | [facility] | | | | | g/dL | [facility] | [facility] | | | | | | [facility] - | | | | | | LABORATORY | | + + + + + + | Hematocrit | 36.3 | 34.0 - 47.0 % | [facility] | | | | | | [facility] | [facility] | | | | | [facility] - | | | | | | LAB[facility]ATORY | | + + + + + + | MCV | 95.2 | 83.0 - 101.0 fL | [facility] | | | | | | [facility] | | | | | [facility] - | | | | | | [facility]AT[facility] | | + + + + + + | MCH | 32.1 | 28.0 - 35.0 pg | [facility] | | | | | | [facility] | | [facility] | [facility] | | | | | [facility] - | | | | | | [facility]ATORY | | + + + + + + | MCHC | 33.8 | 32.0 - 36.0 | [facility] | | | | | g/dL | [facility] | | [facility] | [facility] | | | | | | [facility] - | | | | | | LAB[facility]ATORY | | + + + + + + | RDW-CV | 13.2 | <15.0 % | [facility] | | | | | | [facility] | | [facility] | | | | | [facility] - | | | | | | [facility]ATORY | | + + + + + + | Platelet | 304 | 140 - 440 K/uL | [facility] [...] [address] | [place] | [phone] | | [facility] | | [address] | | | - LABORATORY | | | | + + + + + documented in this encounter Visit Diagnoses + + | Diagnosis | + + | Delivery normal - Primary Normal delivery | + + documented in this encounter Administered Medications + +--------+ +--------+------+------+ | Medication Order | MAR | Action | Dose | Rate | Site | | | Action | Date | | | | + +--------+ +--------+------+------+ | acetaminophen (TYLENOL) tablet | Given | 10/27/19 | 650 mg | | | | 325-650 mg 325-650 mg, Oral, | | 16 6:36 | | | | | EVERY 4 HOURS PRN, Mild Pain, | | AM PST | | | | | Starting 10/26/15 at 2242, | | | | | | | | | | | | | + +--------+ +--------+------+------+ +-------+ +--------+---+---+ | Given | 10/27/19 | 650 mg | | | | | 16 1:05 | | | | | | AM PST | | | | +-------+ +--------+---+---+ +---+---+ | | | +---+---+ + +-------+ +--------+---+---+ | docusate sodium (COLACE) | Given | 10/27/19 | 200 mg | | | | capsule 200 mg 200 mg, Oral, | | 16 8:05 | | | | | NIGHTLY, First dose on Mon | | PM PST | | | | | 10/26/15 at 2300, Hold for loose | | | | | | | stools, | | | | | | + +-------+ +--------+---+---+ +---+---+ | | | +---+---+ + +---------+ +---------+ +---+ | fentaNYL 2 mcg/mL + bupivacaine | New Bag | 10/26/19 | 250 mLs | 14 mL/hr | | | 0.125% in saline EPIDURAL | | 16 7:45 | | | | | Starting 10/26/15 at 1915, For | | PM PST | | | | | 1 dose, RALPH ALATORRE: hien | | | | | | | override, | | | | | | + +---------+ +---------+ +---+ +---+---+ | | | +---+---+ + +-------+ +--------+---+---+ | fentaNYL injection 50-100 mcg | Given | 10/26/19 | 50 mcg | | | | 50-100 mcg, Intravenous, EVERY 1 | | 16 7:04 | | | | | HOUR PRN, Pain, Starting Mon | | PM PST | | | | | 10/26/15 at 1846, Maximum total | | | | | | | dose is 200 mcg., | | | | | | + +-------+ +--------+---+---+ +---+---+ | | | +---+---+ + +-------+ +--------+---+---+ | ferrous sulfate tablet 325 mg | Given | 10/28/19 | 325 mg | | | | 325 mg, Oral, DAILY WITH | | 16 8:04 | | | | | BREAKFAST, First dose on Mon | | AM PST | | | | | 10/27/15 at 0800, | | | | | | + +-------+ +--------+---+---+ +-------+ +--------+---+---+ | Given | 10/27/19 | 325 mg | | | | | 16 8:36 | | | | | | AM PST | | | | +-------+ +--------+---+---+ +---+---+ | | | +---+---+ + +-------+ +---------+---+---+ | HYDROcodone-acetaminophen | Given | 10/28/19 | 2 | | | | (NORCO) 5-325 mg per tablet 1-2 | | 16 8:04 | tablets | | | | tablet 1-2 tablet, Oral, EVERY 6 | | AM PST | | | | | HOURS PRN, Pain, Starting Tue | | | | | | | 10/27/15 at 0716 | | | | | | + +-------+ +---------+---+---+ +-------+ +---------+---+---+ | Given | 10/27/19 | 2 | | | | | 16 10:44 | tablets | | | | | PM PST | | | | +-------+ +---------+---+---+ | Given | 10/27/19 | 2 | | | | | 16 4:44 | tablets | | | | | PM PST | | | | +-------+ +---------+---+---+ +---+---+ | | | +---+---+ + +-------+ +--------+---+---+ | ibuprofen (ADVIL,MOTRIN) tablet | Given | 10/28/19 | 800 mg | | | | 800 mg 800 mg, Oral, EVERY 8 | | 16 9:49 | | | | | HOURS PRN, Pain, Starting Mon | | AM PST | | | | | 10/26/15 at 2242, If urine output | | | | | | | is less than 240 mL/8 hours (30 | | | | | | | mL/hr) or if signs of bleeding, | | | | | | | contact MD and hold ibuprofen., | | | | | | | | | | | | | + +-------+ +--------+---+---+ +-------+ +--------+---+ + | Given | 10/28/19 | 800 mg | | | | | 16 1:43 | | | | | | AM PST | | | | +-------+ +--------+---+ + | Given | 10/27/19 | 800 mg | | Back-Low | | | 16 4:08 | | | er | | | PM PST | | | | +-------+ +--------+---+ + +---+---+ | | | +---+---+ + +---------+ +---+-------+---+ | lactated ringers (LR) infusion | New Bag | 10/26/19 | | 100 | | | at 100 mL/hr, Intravenous, | | 16 8:57 | | mL/hr | | | CONTINUOUS, Starting 10/26/15 | | PM PST | | | | | at 1915 | | | | | | + +---------+ +---+-------+---+ +---------+ +---+-------+---+ | New Bag | 10/26/19 | | 999 | | | | 16 7:03 | | mL/hr | | | | PM PST | | | | +---------+ +---+-------+---+ +---+---+ | | | +---+---+ + +-------+ +-------+---+---+ | metoclopramide (REGLAN) tablet | Given | 10/27/19 | 10 mg | | | | 10 mg 10 mg, Oral, EVERY 4 HOURS | | 16 3:36 | | | | | PRN, Nausea, Vomiting, Starting | | AM PST | | | | | 10/26/15 at 2242, Use if | | | | | | | ondansetron and prochlorperazine | | | | | | | ineffective after 30 minutes or | | | | | | | not ordered, | | | | | | + +-------+ +-------+---+---+ +---+---+ | | | +---+---+ + +---------+ +---------+---+ + | nicotine (NICODERM) 14 mg/24 hr | Patch | 10/27/19 | 1 patch | | Shoulder | | 1 patch 1 patch, Transdermal, | Applied | 16 8:06 | | | -Right | | DAILY, First dose (after last | | PM PST | | | | | modification) [facility] 10[facility] at | | | | | | | 0045 | | | | | | + +---------+ +---------+---+ + + + +---------+---+ + | Patch Applied | 10/27/19 | 1 patch | | Shoulder | | | 16 1:04 | | | -Left | | | AM PST | | | | + + +---------+---+ + +---+---+ | | | +---+---+ + +---------+ + +-------+---+ | oxytocin in saline (PITOCIN) 30 | New Bag | 10/26/19 | 999 | 999 | | | units/500 mL (60 tashi-units/mL) | | 16 10:00 | tashi-un | mL/hr | | | infusion 0-999 tashi-units/min | | PM PST | its/min | | | | (0-999 mL/hr), at 0-999 mL/hr, | | | | | | | Intravenous, TITRATED, Starting | | | | | | | 10/26/15 at 1915, Low Dose | | | | | | | (Cervical Ripening) Management: | | | | | | | Dose 1-4 mU/min. Begin infusion | | | | | | | at 1 mU/min for 60 minutes, | | | | | | | Increase to 2 mU/min for 60 | | | | | | | minutes, Increase to 4 mU/min and | | | | | | | continue at this level until | | | | | | | Perla score of 7 or more. | | | | | | | Maximum dose for cervical | | | | | | | ripening = 4mU/min. Standard | | | | | | | (Augmentation/Induction) | | | | | | | Management: Dose 0-40 mU/min. | | | | | | | Begin infusion at 1-2 mU/minute. | | | | | | | Increase at no greater than 2 | | | | | | | mU/min every 30 minutes, until | | | | | | | adequate labor. Maximum standard | | | | | | | dose for augmentation/induction | | | | | | | = 20 mU/min. Call provider to | | | | | | | increase above 20 mU/min. Do not | | | | | | | increase above 40 mU/min. Do | | | | | | | not increase rate if there is | | | | | | | tachysystole ( > 5 contractions | | | | | | | in 10 minutes averaged over 30 | | | | | | | minutes) or concern regarding | | | | | | | tracing. For tachysystole, | | | | | | | indications or increased | | | | | | | baseline uterine tone, notify | | | | | | | provider and stop or decrease | | | | | | | oxytocin infusion per unit policy | | | | | | | until the indication has ceased. | | | | | | | Restart the infusion per policy | | | | | | | or at 50% or less of the previous | | | | | | | rate. Third Stage | | | | | | | Management/Immediate : | | | | | | | Dose 0-999 mU/min. After delivery | | | | | | | of anterior shoulder or | | | | | | | placenta, titrate to control | | | | | | | bleeding. May discontinue if | | | | | | | fundus firm, bladder not | | | | | | | distended and patient tolerating | | | | | | | oral fluids and pain meds., Use | | | | | | | oxytocin for management of: Third | | | | | | | stage | | | | | | + +---------+ + +-------+---+ +---+---+ | | | +---+---+ + +-------+ + +---+---+ | 27-0.8 mg multivitamin | Given | 10/28/19 | 1 tablet | | | | 1 tablet 1 tablet, Oral, DAILY, | | 16 8:04 | | | | | First dose on Mon10/27/15 at | | AM PST | | | | | 0900, | | | | | | + +-------+ + +---+---+ +-------+ + +---+---+ | Given | 10/27/19 | 1 tablet | | | | | 16 8:36 | | | | | | AM PST | | | | +-------+ + +---+---+ +---+---+ | | | +---+---+ documented in this encounter"
--- OUTSIDE RECORDS SUMMARY | ~2020-01-13 | XMS | Encounter Summary ---
Demographics + + + | Address | [address] | | | [place] [address] | + + + | Home Phone [...] Organization | [facility] | | | and [place] [...] Team Providers + +------+ + | Care Card Boxer Name | Role | Phone | + +------+ + PCP | Unavailable | + +------+ + Encounter Details +--------+ + + + + | Date | Type | Department | Care Team | Description | +--------+ + + + + | 07/09/ | [facility] | [facility] | Rhoda Valverde | | | 2010 | Encounter | MED CTR EMERGENCY | DO Arsenio Mccurdy | | | | | [place] [address] | [place] | | | | | [place] | [address] | | | | | [address] | | | | | | [phone] | | | +--------+ + + + [...] | + +--------+ + + + | [facility] | Routin | 07/09/2011 | | Results [...] [address] | [place] | [phone] | | [facility] | | [address] | | | - LABORATORY | | | | + + + + + | [facility] | [address] | [place], [place] | | | [facility] | | [address], [facility] | | | - LABORATORY | | | | + + + + + US OB Limited 1 or More Fetus (07/09/2011 3:04 PM PDT) + + | Specimen | + + | | + + + + + | Narrative | Performed At | + + + | [facility] Diagnostic Imaging Department | [facility] | | [address], [facility] | [facility] | | LIMITED OBSTETRICAL ULTRASOUND | DIAG IMG | | CLINICAL HISTORY: 17 WEEKS 5 DAYS BY PRIOR ULTRASOUNDS. LOW | | | PELVIC PAIN. FINDINGS: Limited transabdominal images are | | | reviewed. A report from an obstetric ultrasound perform ed | | | yesterday in [place] is available for comparison. A single, | [...] Transcribed Date/Time: | | | 07/10/2011 14:12 Roll Form Operator: <Electronically Signed | | | by Rob Fields MD> 07/11/11 0731 | | + + + + + | Procedure Note | + + | Pardeep Swanson Conversion - 10/11/2013 4:10 PM [facility] | | Diagnostic Imaging Department [address] [facility] | | LIMITED OBSTETRICAL ULTRASOUND CLINICAL HISTORY: 17 | | WEEKS 5 DAYS BY PRIOR ULTRASOUNDS. LOW PELVIC PAIN. FINDINGS: Limited transabdominal | | images are reviewed. A report from an obstetric ultrasound performed yesterday in | | [place] is available for comparison. A single, living, [...] 10:20 | |Transcribed Date/Time: 07/10/2011 14:12 | |Roll Form Operator: NEY | |<Electronically Signed by Rob Fields [...]
--- OUTSIDE RECORDS SUMMARY | ~2020-01-13 | XMS | Encounter Summary ---
Demographics + + + | Address | [address] | | | [place] [address] | + + + | Home Phone [...] + | Organization | [facility] | | | and [...] Team Providers + +------+ + | Care Photofinishing Laboratory Worker Name | Role | Phone | [...] | | [address] [place] | [place] [address] | | | | | [place] [address] | | | | | | [phone] | | | +--------+ + + + [...]
--- OUTSIDE RECORDS SUMMARY | ~2020-01-13 | XMS | Encounter Summary ---
Demographics + + + | Address | [address] | | | [place] [address] | + + + | Home Phone [...] + | Organization | [facility] | | | and [place] [...] Providers + +------+ + | Care Mobile Paramedical Examiner Name | Role | Phone | [...] | 06/25/ | Telephone | [facility] | Katy Sanford MD | Lab Results | | 2018 | | MEDICINE [place] | [address] | | | | | [address] | [place] | | | | | [place], [place] | [address] | | | | | [address] | | | | | | [phone] | | | +--------+ + + + [...]
--- OUTSIDE RECORDS SUMMARY | ~2020-01-13 | XMS | Encounter Summary ---
Demographics + + + | Address | [address] | | | [place] [address] | + + + | Home Phone | | + + + | Preferred Language | Unknown | + + + | Marital Status | Single | + + + | Islam Affiliation | 1013 | + + + | Race | Unknown | + + + | Ethnic Group | Unknown | + + + Author + + + | Author | [facility] | | | and [place] | + + + | Organization | [facility] | [...] Providers + +------+ + | Care Datastage Architect Name | Role | Phone | + +------+ + PCP | Unavailable | + +------+ + Encounter Details +--------+ + + + + | Date | Type | Department | Care Team | Description | +--------+ + + + + | 11/08/ | [facility] | [facility] | Edi Sprague | | | 2010 | Encounter | MED CTR MP INTRA OP | F, [address] [facility] | | | | | [address] | [place] | | | | | [place] | [address] | | | | | [address] | | | | | | [phone] | | | +--------+ + + + [...] 6.6 | 4.0 - 11.0 K/uL | LUCIANAE [...] [address] | [place] | [phone] | | [facility] | | [address] | | | - LABORATORY | | | | + + + + + | YULIANA SANDOVAL. | [address] | [place], [place] | | | [facility] | | [address] | | | - LABORATORY | | | | + + + + + documented in this encounter Visit Diagnoses Not on filedocumented in this encounter"
--- OUTSIDE RECORDS SUMMARY | ~2020-01-13 | XMS | Encounter Summary ---
Demographics + + + | Address | [address] | | | [place] [address] | + + + | Home Phone | | + + + | Preferred Language | Unknown | + + + | Marital Status | Single | + + + | Sabianist Affiliation | CHR | + + + [...] Team Providers + +------+ + | Care Valve Lapper Name | Role | Phone | + [...]
--- OUTSIDE RECORDS SUMMARY | ~2020-01-13 | XMS | Encounter Summary ---
Demographics + + + | Address | [address] | | | [place] [address] | + + + | Home Phone [...] | Organization | [facility] | | | and [...] Team Providers + +------+ + | Care Poultry Veterinarian Name | Role | Phone | + +------+ + PCP | Unavailable | + +------+ + Encounter Details +--------+ + + + + | Date | Type | Department | Care Team | Description | +--------+ + + + + | 05/26/ | Hospital | [facility] | Joe Lauren | | | 2002 - | Encounter | MEDICAL CENTER LABOR | [place] [phone] | | | | | AND DELIVERY [address] | (Fax) Conversion | | | 05/29/ | | [address] | Transaction, | | | 2002 | | [place], [place] | Provider Unknown | | | | | [address] | [phone] | | | | | [phone] | | | +--------+ + + + [...]
--- OUTSIDE RECORDS SUMMARY | ~2020-01-13 | XMS | Encounter Summary ---
Demographics + + + | Address | [address] | | | [place] [address] | + + + | Home Phone [...] | Organization | [facility] [...] Providers + +------+ + | Care Equipment Maint Tech Name | Role | Phone | + +------+ + | Isabela Gage DO | PCP | | + +------+ + Reason for Visit + + + | Reason | Comments | + + + | Headache (Adult - | | | Re-evaluation) | | + + + | Muscle Pain | | + + + | Nausea | | + + + Encounter Details +--------+ + + + + | Date | Type | Department | Care Team | Description | +--------+ + + + + | 01/05/ | Emergency | [facility] | Pawel Clay, | Migraine without | | 2020 | | MED CTR EMERGENCY | [place] [address] | status migrainosus, | | | | CENTER [address] | [place] | not intractable, | | | | [place], [place] | [address] | unspecified migraine | | | | [address] | | type (Primary Dx) | | | | [phone] | | | +--------+ + + + [...] following attachments cannot be sent through Care Everywhere.Migraine Headac hes, Preventing, Triggers (Uzbek)documented in this encounter Medications at Time of [...] INFORMATION | [facility] | Routin | | 01/06/2020 5:41 AM | | EXCHANGE | | e [...] J?MRN: | | | | | | [id number] | | | [id number] | | | riteri | | | [...] | | | guidel | | | taemka | | | and | | | [...] | | 1 0 | | | [place] | | | | | | Health [...] | | | St. | | | [place] | | | y | | | [...] | | | St. | | | [place] | | | y H. | | [...] | | | 2020 | | | [place] | | | | | | Health [...] | | | 2020 | | | [place] | | | | | | Health [...] - | | Primary | + + documented in this encounter Administered Medications + +--------+ +------+------+ + | Medication Order | MAR | Action | Dose | Rate | Site | | | Action | Date | | | | + +--------+ +------+------+ + | haloperidol lactate (HALDOL) | Given | 01/06/20 | 5 mg | | Deltoid- | | injection 5 mg 5 mg, | | 20 6:39 | | | Left | | Intramuscular, ONCE, 01/06/20 | | AM PDT | | | | | at 0635, For 1 dose | | | | | | + +--------+ +------+------+ + +---+---+ | | | +---+---+ documented in this encounter"
--- OUTSIDE RECORDS SUMMARY | ~2020-01-13 | XMS | Encounter Summary ---
Demographics + + + | Address | [address] | | | [place] [address] | + + + | Home Phone [...] | Organization | [facility] [...] Team Providers + +------+ + | Care Mind Reader Name | Role | Phone | + [...] EMERGENCY | MD Deuce [address] | ([facility]) (Primary Dx) | | | | CENTER [address] | [address] [place] | | | | | [place], [place] | [place] [address] | | | | | [address] | [phone] | | | | | [phone] | | | | | | | Wally Hernandez MD | | | | | | [address] | | | | | | [place], [place] | | | | | | [address] | | | | | | | [...] sent through Care Everywhere.Getting Help, Emeli ddiction (Macanese)documented in this encounter Medications at Time of [...] [address] | [place] | [phone] | | [facility] | | [address] | | | - LABORATORY | | [...] + | [facility] | [address] | [place] | [phone] | | [facility] | | [address] | | | - LABORATORY | | [...] + | [address] | [address] | [place] | [phone] | | [facility] | | [address] | | | - LABORATORY | | [...] [address] | [place] | [phone] | | [facility] | | [address] | | | - LABORATORY | | [...] + | [address] | [address] | [place] | [phone] | | [facility] | | [address] | | | - LABORATORY | | [...] | [address] | [place], [place] | [phone] | | [facility] | | [address] | | | - LABORATORY | | [...] mL/min/1.73m2 | [facility] | | | [place] | RATE,ESTIMATED | | MEDICAL | | | | mL/min/1.16q5Ixhl than | | CENTER - | | [...] + | [address] | [address] | [place] | [phone] | | [facility] | | [address] | | | - LABORATORY | | [...] ranges: Trim. Absolute (K/uL) Percentage (%) | [facility] | | 1st 0.003-0.091 K/uL 0.0-0.9% 2nd 0.007-0.247 K/uL | [facility] | | 0.1-2.0% 3rd 0.018-0.456 K/uL 0.1-2.0% | - LABORATORY | + + + + + + + + | Performing | Address | City/State/Zipcode | Phone Number | | Organization | | | | + + + + + | [address] | [address] | [place] | [phone] | | [facility] | | [address] | | | - LABORATORY | | [...] [address] | [place] | [phone] | | [facility] | | [address] | | | - LABORATORY | | [...] - 1.030 | [facility] | | | [place], | | | [facility] | | [...] [address] | [place] | [phone] | | [facility] | | [address] | | | - LABORATORY | | [...]
--- OUTSIDE RECORDS SUMMARY | ~2020-01-13 | XMS | Encounter Summary ---
Demographics + + + | Address | [address] | | | [place] [address] | + + + | Home Phone [...] Organization | [facility] | [...] + +------+ + | Care Director Of Social Services Name | Role | Phone | + +------+ + PCP | Unavailable | + +------+ + Encounter Details +--------+ + + + + | Date | Type | Department | Care Team | Description | +--------+ + + + + | 01/11/ | Hospital | [facility] | | | | 2009 | Encounter | MED CTR EMERGENCY | | | | | | CENTER [address] | | | | | | [place] | | | | | | [address] | | | | | | [phone] | | | +--------+ + + + [...]
--- OUTSIDE RECORDS SUMMARY | ~2020-01-13 | XMS | Encounter Summary ---
Demographics + + + | Address | [address] | | | [place] [address] | + + + | Home Phone [...] | Organization | [facility] | | | [...] Team Providers + +------+ + | Care Camp Housekeeper Name | Role | Phone | + [...] | | | | | with | [address] | [address] [place] | | | | | cervical rib | Phone: | [place], [place] | | | | | | [phone] | [address] Phone: | | | | | | Fax: | [phone] | | | | | | [phone] | Fax: | | | | | | | [phone] | +--------+ + + + + + [...] Thoracic | MD Katy | [address] | | | | | outlet | [address] | [place], | | | | | syndrome | AVE [place] | [place] | | | | | associated | [place], [place] | [address] | | | | | with | [address] | Phone: | | | | | cervical rib | Phone: | [phone] | | | | | Procedures | [phone] | Fax: | | | | | MRI | Fax: | [phone] | | | | | Cervical | [phone] | | | | | | Spine [...] + + | 03/05/ | Office | [facility] | Katy Sanford MD | Health care | | 2018 | Visit | [facility] [place] | [address] | maintenance (Primary | | | | [address] | [place] | Dx); Need for | | | | [place] | [address] | pneumococcal | | | | [address] | | vaccination; Need | | | | [phone] | | for Tdap | | | [...] you have any questions, please call us [phone]. Referrals: During your office today we have [...] business days, gordy e call our Referral Inside Sales Person at [phone] to check on the status of the [...] y our substance use. Date Last Reviewed: 02/03/201619998854-5902 [employer]. [address] [place] [address]. All righ ts reserved. This information is [...] Dr. Singh and has decided to c [facility] physicians due to Location. Her last [...] PHQ9 SCORE Office Visit from 03/05/2018 in [facility] PHQ-9 Total Score (Patient Health Questionnaire) [...] as needed for Cough. 120 mL 0 Fewdibdnyzuadgf-TSYO-EX (DAYQUIL MULTI-SYMPTOM COLD/FLU PO) Take by mouth. [...] Plan: Discussed I would not be prescribing buttermaker helper narcotics due to her use of THC. Will give her short term Rx today and she can find another doctor or quit THC. Will refer her to neurology and there is a consideration for surgical correction as well. Will request C-Spine MRI. Continue Gabapentin 800 mg TID Orders: - MRI Cervical Spine wo Contrast; Future; Expected date: 03/05/2018 - AMB Referral to [facility] [place] 5. Substance abuse Assessment & Plan: THC: [...] Portions of this report were transcribed using [employer] voice recognition soft hunter. 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
--- OUTSIDE RECORDS SUMMARY | ~2020-01-13 | XMS | Encounter Summary ---
Demographics + + + | Address | [address] | | | [place] [address] | + + + | Home Phone [...] + | Organization | [facility] | | [...] Team Providers + +------+ + | Care Pharmacy Tech Name | Role | Phone | [...] + + | 12/25/ | Office | [facility] | Jim Buckner | Migraine without | | 2019 | Visit | CARE [address] | B, DO [address] | status migrainosus, | | | | [place] | [address] [place] | not intractable, | | | | [address] | [address] | unspecified migraine | | | | [phone] | | type (Primary Dx); | | [...] a clinic, healthcare provider s office, drugstore, [facility], or through your workplace. Get pneumococcal [...] Wash your hands often. Use alcohol-based hand motion pictures cartoonist when you don t have access to [...] and open the door. Date Last Reviewed: 08/04/201619990587-5401 [employer]. [address] [place] [address], [place] [address]. All righ ts reserved. This information is [...] loosen secretions in the nose and lungs. Evhe-zbw-iyzykmk cold medicines will not shorten the length of time you re sick, but t hey may be helpful for the following symptoms: cough, sore throat, and nasal and sinus conge stion. If you take prescription medicines, ask your healthcare provider or pharmacist which uhys-bcm-nbzjloo medicines are safe to use. (Note: Don't [...] with a muffled voice Date Last Reviewed: 02/02/201819991352-1355 [employer]. [address] [place] [address], [place] [address]. All righ ts reserved. This information is [...] is being changed from Dr. Rader's, to [place] [facility] clinic. Her first visit at the new [...] lumbar back pain. She has tried some fpad-vrr-hgevzhi preparations a t home to include DayQuil, [...] of this note have been dictated using [employer] s oftware. It will be reviewed for [...]
--- OUTSIDE RECORDS SUMMARY | ~2020-01-13 | XMS | Encounter Summary ---
Demographics + + + | Address | [address] | | | [place] [address] | + + + | Home Phone [...] | Organization | [facility] [...] Team Providers + +------+ + | Care Store Sales Leader Name | Role | Phone | [...] + + | 11/18/ | Telephone | [facility] | Harshad Shaikh MD | Referral | | 2020 | | GENERAL SURGERY [address] | [address] [place] | | | | | [address] | [address] [place], [place] | | | | | [place], [place] | [address] | | | | | [address] | | | | | | [phone] | | | +--------+ + + + [...]
--- OUTSIDE RECORDS SUMMARY | ~2020-01-13 | XMS | Encounter Summary ---
Demographics + + + | Address | [address] | | | [place] [address] | + + + | Home Phone | | + + + | Preferred Language | Unknown | + + + | Marital Status | Single | + + + | Adventist Affiliation | 1013 | + + + | Race | Unknown | + + + | Ethnic Group | Unknown | + + + Author + + + | Author | [facility] | | | and [place] | + + + | Organization | [facility] [...] Team Providers + +------+ + | Care Wire Brush Maker Name | Role | Phone | [...] + + | 07/02/ | Telephone | [facility] | Antonia Goyal | ED Follow-up (ED | | 2019 | | MED CTR CASE | [phone] | follow up call to | | | | MANAGEMENT [address] | | offer PCP | | | | [place], | | assistance) | | | | [place] [address] | | | | | | [phone] | | | +--------+ + + + [...]
--- OUTSIDE RECORDS SUMMARY | ~2020-01-13 | XMS | Encounter Summary ---
Demographics + + + | Address | [address] | | | [place] [address] | + + + | Home Phone [...] | Organization | [facility] | [...] Providers + +------+ + | Care Electrical Inspector Name | Role | Phone | [...] Refill | | 2019 | | MEDICINE [place] | [address] | | | | | [address] | [place] | | | | | [place], [place] | [address] | | | | | [address] | | | | | | [phone] | | | +--------+--------+ + + + [...]
--- OUTSIDE RECORDS SUMMARY | ~2020-01-13 | XMS | Encounter Summary ---
Demographics + + + | Address | [address] | | | [place] [address] | + + + | Home Phone [...] | Organization | [facility] | | | and [...] Team Providers + +------+ + | Care Freight Trucker Name | Role | Phone | + [...] Refill | | 2018 | | [facility]IC[facility] [place] | [address] | | | | | [address] | [place] | | | | | [place], [place] | [address] | | | | | [address] | | | | | | [phone] | | | +--------+--------+ + + + [...]
--- OUTSIDE RECORDS SUMMARY | ~2020-01-13 | XMS | Encounter Summary ---
Demographics + + + | Address | [address] | | | [place] [address] | + + + | Home Phone [...] | Organization | [facility] | [...] Team Providers + +------+ + | Care Merchandise Worker Name | Role | Phone | [...] MD | | | 2018 | | [facility] | [address] | | | | | [address] | [place] | | | | | [place] | [address] | | | | | [address] | | | | | | [phone] | | | +--------+ + + + [...]
--- OUTSIDE RECORDS SUMMARY | ~2020-01-13 | XMS | Encounter Summary ---
Demographics + + + | Address | [address] | | | [place] [address] | + + + | Home Phone | | + + + | Preferred Language | Unknown | + + + | Marital Status | Single | + + + | Christian Affiliation | 1013 | + + + | Race | Unknown | + + + | Ethnic Group | Unknown | + + + Author + + + | Author | [facility] | | | and [place] | + + + | Organization | [facility] | | | and [place] [...] Providers + +------+ + | Care Sheet Finisher Name | Role | Phone | + [...] + | 12/06/ | Telephone | [facility] | Antonia Goyal | ED Follow-up | | 2019 | | MED CTR CASE | [phone] | (amphetamine abuse) | | | | MANAGEMENT [address] | | | | | | [place], | | | | | | [place] [address] | | | | | | [phone] | | | +--------+ + + + [...]
--- OUTSIDE RECORDS SUMMARY | ~2020-01-13 | XMS | Encounter Summary ---
Demographics + + + | Address | [address] | | | [place] [address] | + + + | Home Phone [...] Organization | [facility] | | | and [place] [...] Team Providers + +------+ + | Care Presetter Operator Name | Role | Phone | [...] | Gill Cantu, | Appointment | | 2018 | | [facility] | Aide | | | | | THERAPY [address] | | | | | | [address] [place] | | | | | | [address] | | | | | | [phone] | | | +--------+ + + + [...]
--- OUTSIDE RECORDS SUMMARY | ~2020-01-13 | XMS | Encounter Summary ---
Demographics + + + | Address | [address] | | | [place] [address] | + + + | Home Phone [...] Organization | [facility] | [...] + +------+ + | Care Director Of Medical Review Name | Role | Phone | + [...] | 06/25/ | Telephone | [facility] | Katy Sanford MD | Results | | 2018 | | [facility]IC[facility] [place] | [address] | | | | | [address] | [place] | | | | | [place] | [address] | | | | | [address] | | | | | | [phone] | | | +--------+ + + + [...]
--- OUTSIDE RECORDS SUMMARY | ~2020-01-13 | XMS | Encounter Summary ---
Demographics + + + | Address | [address] | | | [place] [address] | + + + | Home Phone [...] | [facility]ated [facility] [...] Providers + +------+ + | Care Sales Lead Name | Role | Phone | + +------+ + PCP | Unavailable | + +------+ + Encounter Details +--------+ + + + + | Date | Type | Department | Care Team | Description | +--------+ + + + + | 07/10/ | [facility] | [facility] | Pawel Clay, | | | 2009 | Encounter | MED CTR EMERGENCY | [address] | | | | | CENTER [address] | [place] | | | | | [place] | [address] | | | | | [address] | | | | | | [phone] | | | +--------+ + + + [...]
--- OUTSIDE RECORDS SUMMARY | ~2020-01-13 | XMS | Encounter Summary ---
Demographics + + + | Address | [address] | | | [place] [address] | + + + | Home Phone [...] | Located Within [facility] | [...] Providers + +------+ + | Care Stripper Color Name | Role | Phone | + [...] | Appointment | | 2018 | | [facility] | Aide | | | | | THERAPY [address] | | | | | [address] [place] | | | | | | [address] | | | | | | [phone] | | | +--------+ + + + [...]
--- OUTSIDE RECORDS SUMMARY | ~2020-01-13 | XMS | Encounter Summary ---
Demographics + + + | Address | [address] | | | [place] [address] | + + + | Home Phone [...] | Organization | [facility] | | | and [place] | [...] Team Providers + +------+ + | Care Ophthalmic Lens Inspector Name | Role | Phone | + +------+ + | Katy Sanford MD | PCP | | + +------+ + Reason for Visit +--------+ + | Reason | Comments | +--------+ + | Other | | +--------+ + Encounter Details +--------+ + + + + | Date | Type | Department | Care Team | Description | +--------+ + + + + | 10/29/ | Telephone | [facility] | Arcenio Martinez, | Other | | 2018 | | [facility] | MEDICAL SUPPORT SPECIALIST [address] | | | | | [address] | [place] | | | | | [place] | [address] | | | | | [address] | | | | | | [phone] | | | +--------+ + + + [...]
--- OUTSIDE RECORDS SUMMARY | ~2020-01-13 | XMS | Encounter Summary ---
Demographics + + + | Address | [address] | | | [place] [address] | + + + | Home Phone [...] Organization | [facility] | [...] Team Providers + +------+ + | Care Wax Molder Name | Role | Phone | + [...] Refill | | 2018 | | [facility] [place] | [address] | | | | | [address] | [place] | | | | | [place], [place] | [address] | | | | | [address] | | | | | | [phone] | | | +--------+--------+ + + + [...]
--- OUTSIDE RECORDS SUMMARY | ~2020-01-13 | XMS | Encounter Summary ---
Demographics + + + | Address | [address] | | | [place] [address] | + + + | Home Phone [...] Organization | [facility] | | [...] Team Providers + +------+ + | Care Coin Machine Collector Supervisor Name | Role | Phone | [...] + + | 06/25/ | Office | [facility] | Katy Sanford MD | Allergic rhinitis, | | 2017 | Visit | [facility] [place] | [address] | unspecified | | | | [address] | [place] | seasonality, | | | | [place] | [address] | unspecified trigger; | | | | [address] | | Subacute maxillary | | | | [phone] | | sinusitis | +--------+---------+ + + [...] you have any questions, please call us [phone]. Lab results process: Once we receive the lab results we will contact you with the results one of three ways: A. Normal results/Slight abnormal- We will send you a letter with provider comments/instruc tions. B. Slightly abnormal/adjustment needed- We will call and give your results over the phone i f there is a small adjustment/instruction needed. C. Abnormal results- The front end technician will call and schedule a follow up [...] of an inj ury. Date Last Reviewed: 07/05/201619992920-7956 The [employer]. [address] [place] [address], [place] [address]. All righ ts reserved. This information is [...] diagnosed on 06/20/2018 with Pertussis at [facility]. She reports that she has had [...] Anxiety Anxiety with depression Benzodiazepine dependence, continuous ([facility]) Borderline diabetes Cervical radicular pain Cervicalgia Depression Diabetes ([facility]) Diabetes mellitus screening Gastro-esophageal reflux Generalized pain Headache Insect bite, multiple Joint pain Left knee injury Left knee pain Migraine headache PCOS (polycystic ovarian syndrome) Pelvic pain Peripheral neuropathy Post depression RUQ pain Spasm of muscle Substance abuse ([facility]) Thoracic outlet syndrome associated with cervical [...] as needed for Cough. 120 mL 0 Vfbtyicuftnyshf-MVHG-VX (DAYQUIL MULTI-SYMPTOM COLD/FLU PO) Take by mouth. [...] Portions of this report were transcribed using Telelogos voice recognition soft hunter. Although effort was [...] [address] | [place] | [phone] | | [facility] | | [address] | | | - LABORATORY | | | | + + + + + documented in this encounter Visit Diagnoses + + | Diagnosis | + + | Allergic rhinitis, unspecified seasonality, unspecified trigger | + + | Subacute maxillary sinusitis Acute maxillary sinusitis | + + documented in this encounter
--- OUTSIDE RECORDS SUMMARY | ~2020-01-13 | XMS | Encounter Summary ---
Demographics + + + | Address | [address] | | | [place] [address] | + + + | Home Phone [...] + + + | Author | [facility] | | | and [place] | + + + | Organization | [facility] | | | and [...] Team Providers + +------+ + | Care Graduate Student Instructor Name | Role | Phone | + +------+ + | Mohinder Gage DO | PCP | | + +------+ + Reason for Visit + + + | Reason | Comments | + + + | Hallucinations | pt hx of meth. rambling. denies meth use today, states it was | | | Monday. rapid rambling speech. visual hallucinations. | | | agitated. cussing. "electrical shocks" muscle spasms. | + + + Encounter Details +--------+ + + + + | Date | Type | Department | Care Team | Description | +--------+ + + + + | 12/07/ | Emergency | [facility] | Pawel Clay, | 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 | | MED CTR EMERGENCY | MD [address] | abuse (HCC) (Primary | | | | CENTER [address] | [place] | Dx) | | | | [place] | [address] | | | | | [address] | | | | | | [phone] | | | +--------+ + + + [...] + + + | Blood Pressure | 119/83 | 12/08/2019 4:27 AM | | | | | PDT | | + + + + + | Pulse | 97 | 12/08/2019 4:27 AM | | | | | PDT | | + + + + + | Temperature | 36.3 C (97.3 F) | 12/08/2019 4:27 AM | | | | | PDT | | + + + + + | Respiratory Rate | 16 | 12/08/2019 4:27 AM | | | | | PDT | | + + + + + | Oxygen Saturation | 100% | 12/08/2019 4:27 AM | | | | | PDT | | + + + + + | Inhaled Oxygen | - | - | | | Concentration | | | | + + + + + | Weight | 49.9 kg (110 lb) | 12/08/2019 4:27 AM | | | | | PDT | | + + + + + | Height | 152.4 cm (5') | 12/08/2019 4:27 AM | | | | | PDT | | + + + + + | Body Mass Index | 21.48 | 12/08/2019 4:27 AM | | | | | PDT | | + + + + + documented in this encounter Discharge Instructions Instructions Pawel Clay MD - 12/08/2019Discontinue methamphetamine usage AttachmentsThe following attachments cannot be sent through Care Everywhere.Methamphetamine Abuse and Addiction, Understanding (Ukrainian)documented in this encounter Medications at Time of [...] | Diagnosis | + + | 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
--- OUTSIDE RECORDS SUMMARY | ~2020-01-13 | XMS | Encounter Summary ---
Demographics + + + | Address | [address] | | | [place] [address] | + + + | Home Phone [...] | Organization | [facility] | | | and [place] [...] Team Providers + +------+ + | Care Program Advocate Name | Role | Phone | + [...] + + | 10/26/ | Anesthesia | [facility] | Jose M Ventura MD | | | 2016 | Event | MED CTR LABOR AND | [address] | | | | | DELIVERY IP [address] | [place] | | | | | [place], | [address] | | | | | [place] [address] | | | | | | [phone] | | | +--------+ + + + [...] Local Anesthetic: Lidocaine 1% Needle: 14 G TuG-modey (9 cm). | | | Loss of [...]
--- OUTSIDE RECORDS SUMMARY | ~2020-01-13 | XMS | Encounter Summary ---
Demographics + + + | Address | [address] | | | [place] [address] | + + + | Home Phone [...] + | Organization | [facility] | [...] Team Providers + +------+ + | Care Fisher Trawl Line Name | Role | Phone | [...] 2019 | | MED CTR EMERGENCY | DO Capo [address] | (Primary Dx); | | | | CENTER [address] | [address] [place] | Methamphetamine | | | | [place], [place] | [place] [address] | abuse (HCC) | | | | [address] | [phone] | | | | | [phone] | | | +--------+ + + + [...] Care Everywhere.Muscle Spasm (E nglish)Getting Help, Addiction (Lao)documented in this encounter Medications at Time of [...] Nasal | 16 g | 2 | 10/22/20 | | | (FLONASE) 50 | route [...] | 0 | 12/26/19 | | | (TAMEKATOMÁS ZAMAN) | mouth 3 times daily | [...] | | | | | mg/dL | [facility] | | | | | | [facility]ICAL | | | | | | CENTER - | | | | | | LABORATORY | | + + + + + + | eGFR if not | >60Comment: GLOMERULAR | >=60 | [facility] | | | | FILTRATION | mL/min/1.73m2 | [facility] | | | THAI | RATE,ESTIMATED | | MEDICAL | | | | mL/min/1.37t9Zzin than | | CENTER - | | [...] | | | | | mg/dL | [facility] | | | | | | MEDICAL [...] + + | [facility] | [address] | [place] | [phone] | | [facility] | | [address] | | | - LABORATORY | | [...]
--- OUTSIDE RECORDS SUMMARY | ~2020-01-13 | XMS | Encounter Summary ---
Demographics + + + | Address | [address] | | | [place] [address] | + + + | Home Phone [...] + | Organization | [facility] | | [...] Team Providers + +------+ + | Care Quality Assurance Qa Lab Analyst Name | Role | Phone | [...] EMERGENCY | [address] | ([facility]) (Primary Dx) | | | | CENTER [address] | [place], [place] | | | 12/31/ | | [place], [place] | [address] | | | 2019 | | [address] | | | | | | [phone] | | | +--------+ + + + [...] Instructions Chapito Wilson MD - 01/01/2020Follow-up with [facility]. Return for any fevers, chills. Follow-up with [...] J?MRN: | | | | | | [id number] | | | [id number] | | | riteri | | | [...] | | 1 0 | | | Gregory | | | | | | Health [...] | | | 2020 | | | Gregory | | | | | | Health [...] | | | 2020 | | | Gregory | | | | | | Health [...]
--- OUTSIDE RECORDS SUMMARY | ~2020-01-13 | XMS | Encounter Summary ---
Demographics + + + | Address | [address] | | | [place] [address] | + + + | Home Phone [...] | Organization | [facility] | [...] Team Providers + +------+ + | Care Superintendent Concrete Mixing Plant Name | Role | Phone | + +------+ + PCP | Unavailable | + +------+ + Encounter Details +--------+ + + + + | Date | Type | Department | Care Team | Description | +--------+ + + + + | 10/11/ | [facility] | [facility] | Bogdan, | | | 2010 | Encounter | MED CTR EMERGENCY | Deuce Sainz MD [address] | | | | | [place] [address] | [address] [place] | | | | | [place] | [place] [address] | | | | | [address] | [phone] | | | | | [phone] | | | +--------+ + + + [...]
--- OUTSIDE RECORDS SUMMARY | ~2020-01-13 | XMS | Encounter Summary ---
Demographics + + + | Address | [address] | | | [place] [address] | + + + | Home Phone [...] | Organization | [facility] | [...] Team Providers + +------+ + | Care Sociology Faculty Member Name | Role | Phone | + [...] + + | 07/01/ | Emergency | [facility] | Deuce Hollingsworth | Methamphetamine | | 2019 | | MED CTR EMERGENCY | Alexis Ring MD | dependence, episodic | | | | CENTER [address] | [address] | ([facility]) (Primary Dx); | | | | [place], [place] | [place] | Confusion | | | | [address] | [address] | | | | | [phone] | | | +--------+ + + + [...] stop using drugs contact while [facility] in [place]. AttachmentsThe following attachments cannot be sent through Care Everywhere.Addiction: Your Treatment Options (Kyrgyz)documented in this encounter Medications at Time of [...] + | [facility] | [address] | [place] | [phone] | | [facility] | | [address] | | | - LABORATORY | | [...] - 1.030 | [facility] | | | [place], | | | [facility] | | [...] + | [facility] | [address] | [place] | [phone] | | [facility] | | [address] | | | - LABORATORY | | [...] + + | [facility] | [address] | [place] | [phone] | | [facility] | | [address] | | | - LABORATORY | | [...] | | [place] | | | [facility] | | [...] + | [facility] | [address] | [place] | [phone] | | [facility] | | [address] | | | - LABORATORY | | [...] + | [facility] | [address] | [place] | [phone] | | [facility] | | [address] | | | - LABORATORY | | [...] [address] | [place] | [phone] | | [facility] | | [address] | | | - LABORATORY | | [...] | | | | | | [employer] | | | | | [...] [address] | [place] | [phone] | | [facility] | | [address] | | | - LABORATORY | | [...] [address] | [place] | [phone] | | [facility] | | [address] | | | - LABORATORY | | [...] [address] | [place] | [phone] | | [facility] | | [address] | | | - LABORATORY | | [...] | | | mg/dL | [facility] | | | | | | MEDICAL | | | | | | CENTER - | | | | | | LABORATORY | | + + + + + + | eGFR if not | >60Comment: GLOMERULAR | >=60 | [facility] | | | | FILTRATION | mL/min/1.73m2 | [facility] | | | TRISTANIAN | RATE,ESTIMATED | | MEDICAL | | | | mL/min/1.58w4Uywf than | | CENTER - | | [...] | 9.5 | 8.7 - 10.4 | [facility] | | | | | mg/dL | [facility] | | | | | [...] [address] | [place] | [phone] | | [facility] | | [address] | | | - LABORATORY | | [...] in | 12 - 53 U/L | [facility] | | | | use as of October 31 | | [facility] | | | | 2018. Check reference [...] [address] | [place] | [phone] | | [facility] | | [address] | | | - LABORATORY | | | | + + + + + CBC with Differential (07/01/2019 10:22 AM PDT) + + + + + + | Component | Value | Ref Range | Performed | Pathologist | | | | | At | Signature | + + + + + + | WBC | 8.7 | 4.0 - 11.0 K/uL | [facility] [...] | | Neutrophils | | K/uL | [facility] | [...] | | Monocytes | | K/uL | [facility] | [...] 0.003-0.091 K/uL 0.0-0.9% 2nd 0.007-0.247 K/uL | [facility] | | 0.1-2.0% 3rd 0.018-0.456 K/uL 0.1-2.0% | - LABORATORY | + + + + + + + + | Performing | Address | City/State/Zipcode | Phone Number | | Organization | | | | + + + + + | [facility] | [address] | [place], [place] | [phone] | | [facility] | | [address] | | | - LABORATORY | | [...] | | | | MEI REDMOND MD ([id number]) | | | | | | on [...]
--- OUTSIDE RECORDS SUMMARY | ~2020-01-13 | XMS | Encounter Summary ---
Demographics + + + | Address | [address] | | | [place] [address] | + + + | Home Phone [...] Organization | [facility] | | | and [...] Team Providers + +------+ + | Care Machinist Linotype Name | Role | Phone | + [...] [place] | | | | | [address] | [place] [address] | | | | | [phone] | | | +--------+ + + + [...] PDTX-RAY ELBOW 2 VIEWS LEFT 11/15/2019 at [facility] REASON FOR EXAM: Female, 39 years [...]
--- OUTSIDE RECORDS SUMMARY | ~2020-01-13 | XMS | Encounter Summary ---
Demographics + + + | Address | [address] | | | [place] [address] | + + + | Home Phone [...] + + | Organization | [facility] | | [...] Providers + +------+ + | Care It Service Continuity Supervisor Name | Role | Phone | [...] | 10/29/ | Telephone | [facility] [place] | Arcenio Martinez, | Other | | 2018 | | [facility] | WIGS SALESPERSON [address] | | | | | [address] | [place] | | | | | [place] | [address] | | | | | [address] | | | | | | [phone] | | | +--------+ + + + [...]
--- OUTSIDE RECORDS SUMMARY | ~2020-01-13 | XMS | Encounter Summary ---
Demographics + + + | Address | [address] | | | [place] [address] | + + + | Home Phone [...] + + + | Author | [facility] | | | and [place] | + + + | Organization | [facility] [...] Team Providers + +------+ + | Care Molybdenum Steamer Operator Name | Role | Phone | [...] | without status | | | | [address] | [place] | migrainosus (Primary | | | | [phone] | [address] | Dx) | | | | | [...] headaches in a woman Date Last Reviewed: 09/04/201719990172-1597 [employer]. [address] [place] [address]. All righ ts reserved. This information is [...] its pattern. This note was dictated using Stam[employer] voice recognition software. Occasional wrong- word or [...]
--- OUTSIDE RECORDS SUMMARY | ~2020-01-13 | XMS | Clinical Summary ---
Demographics + + + | Address | [address] | | | [place] [address] | + + + | Home Phone [...] | [facility] [...] Team Providers + +------+ + | Care Fireproof Door Assembler Name | Role | Phone | [...] | MD David Tripathi, | ([facility]) (Primary Dx) | | | | [...] J?MRN: | | | | | | [id number] | | | [id number] | | | riteri | | | [...] | | 1 0 | | | [place] | | | | | | Health [...] | | | St. | | | [place] | | | y | | | [...] | | | St. | | | [place] | | | y H. | | [...] | | | 2020 | | | [place] | | | | | | Health [...] | | | 2020 | | | [place] | | | | | | Health [...] J?MRN: | | | | | | [id number] | | | [id number] | | | riteri | | | [...] | | 1 0 | | | [place] | | | | | | Health [...] | | | St. | | | [place] | | | y | | | [...] | | | St. | | | [place] | | | y H. | | [...] | | | 2020 | | | [place] | | | | | | Health [...] | | | 2020 | | | [place] | | | | | | Health [...] | | | otify/ | | | [id number] | | | [id number] | | | [id number] | | | -b86b- | | | [id number] | | | [id number] | | | | | | PLEASE [...] J?MRN: | | | | | | [id number] | | | [id number] | | | riteri | | | [...] | | 1 0 | | | [place] | | | | | | Health [...] | | | St. | | | [place] | | | y | | | [...] | | | St. | | | [place] | | | y H. | | [...] | | | 2020 | | | [place] | | | | | | Health [...] | | | 2020 | | | [place] | | | | | | Health [...] | | | otify/ | | | [id number] | | | [id number] | | | [id number] | | | -9167- | | | [id number] | | | [id number] | | | [...] J?MRN: | | | | | | [id number] | | | [id number] | | | riteri | | | [...] | | 1 0 | | | [place] | | | | | | Health [...] | | | 2020 | | | [place] | | | | | | Health [...] | | | 2020 | | | [place] | | | | | | Health [...] J?MRN: | | | | | | [id number] | | | [id number] | | | riteri | | | [...] | | 1 0 | | | [place] | | | | | | Health [...] | | | 2020 | | | [place] | | | | | | Health [...] | | | 2020 | | | [place] | | | | | | Health [...] J?MRN: | | | | | | [id number] | | | [id number] | | | riteri | | | [...] | | | or | | | pelletizer tender | | | Dec | | | [...] | | | [place] | | | [facility] | | | | | | MEDICA [...] J?MRN: | | | | | | [id number] | | | [id number] | | | riteri | | | [...] | | | otify/ | | | [id number] | | | [id number] | | | [...] J?MRN: | | | | | | [id number] | | | [id number] | | | riteri | | | [...] J?MRN: | | | | | | [id number] | | | [id number] | | | riteri | | | [...] - 1.030 | [facility] | | | [place], | | | [place] | | [...] [address] | [place] | [phone] | | [facility] | | [address] | | | - LABORATORY | | [...] + | [facility] | [address] | [place] | [phone] | | [facility] | | [address] | | | - LABORATORY | | [...] [address] | [place] | [phone] | | [facility] | | [address] | | | - LABORATORY | | [...] 0.003-0.091 K/uL 0.0-0.9% 2nd 0.007-0.247 K/uL | [facility] | | 0.1-2.0% 3rd 0.018-0.456 K/uL 0.1-2.0% | - LABORATORY | + + + + + + + + | Performing | Address | City/State/Zipcode | Phone Number | | Organization | | | | + + + + + | [facility] | [address] | [place] | [phone] | | [facility] | | [address] | | | - LABORATORY | | [...] mL/min/1.73m2 | [facility] | | | [place] | RATE,ESTIMATED | | MEDICAL | | | | mL/min/1.49q1Oidq than | | CENTER - | | [...] [address] | [place] | [phone] | | [facility] | | [address] | | | - LABORATORY | | [...] | performed at [facility] | | | | | | [place] | | | | | | [address] | | | | + + + [...] | + + + + + | [facility] | [address] | [place] [address] | [phone] | + + + + + , [...] [place] | | | | | | [address] | | | | + + + + + + + + | Specimen | + + | Blood | + + + + + + + | Performing | Address | City/State/Zipcode | Phone Number | | Organization | | | | + + + + + | [facility] | [address] | [place] [address] | [phone] | + + + + + Ethanol [...] LABORATORY | | | A | [address]anne [address];[place], [place] | | | | | | [address] | | | | + + + + + + + + | Specimen | + + | Blood | + + + + + + + | Performing | Address | City/State/Zipcode | Phone Number | | Organization | | | | + + + + + | [facility] | [address] | [place] [address] | [phone] | + + + + + Acetaminophen [...] (L)Comment: Testing | 10.0 - 30.0 | [facility] | | | en, S | performed at [facility];888 | ug/mL | LABORATORY | | | | [address];[place], [place] | | | | | | [address] | | | | + + + + + + + + | Specimen | + + | Blood | + + + + + + + | Performing | Address | City/State/Zipcode | Phone Number | | Organization | | | | + + + + + | [facility] | [address] | [place] [address] | [phone] | + + + + + Salicylate [...] | LABORATORY | | | [address];[place], [place] | | | | | | [address] | | | | + + + + + + + + | Specimen | + + | Blood | + + + + + + + | Performing | Address | City/State/Zipcode | Phone Number | | Organization | | | | + + + + + | [facility] | [address] | [place] [address] | [phone] | + + + + + Comprehensive [...] [facility];[address] | | | | | | [facility];[place], [place] | | | | | | [address] | | | | + + + + + + + + | Specimen | + + | Blood | + + + + + + + | Performing | Address | City/State/Zipcode | Phone Number | | Organization | | | | + + + + + | [facility] | [address] | [place] [address] | [phone] | + + + + + Extra [...] + | [facility] | [address] | [place] | [phone] | | [facility] | | [address] | | | - LABORATORY | | [...] [address] | [place] | [phone] | | [facility] | | [address] | | | - LABORATORY | | [...] [address] | [place] | [phone] | | [facility] | | [address] | | | - LABORATORY | | [...] [address] | [place] | [phone] | | [facility] | | [address] | | | - LABORATORY | | [...] + | [facility] | [address] | [place] | [phone] | | [facility] | | [address] | | | - LABORATORY | | [...] | | | | MEI REDMOND MD ([id number]) | | | | | | on [...] recent of 2 results within the ti pa period is included. + + | Specimen [...] | [employer] | MODA | [id number] | | [phone] | | Medica | | MEDICAID HMO | HEALTH | | 020-Pr | 1 | | id | | | MDCD | | esent | | | | | | [place] | | | | | | + +--------+ +--------+ +---------+--------+ | [employer] | MODA | [id number] | | [phone] | | Medica | [...] | | al/Fam | | 1980 | [phone] | [place], [place] | | | lew | | | 5 (Home) | [address] | + +--------+ +--------+ + + | Nataly Martinez | Person | Self | [birth year] | [address] | | | al/Fam | | 1980 | [phone] | [place], [place] | | | lew | | | 5 ([place]) | [address] | + +--------+ +--------+ + + Advance Directives + + + + + | Type | Date Recorded | Patient | Explanation | | | | Renal Medicine Physician | | + + + + + | Power of | | | | | [facility] | | | | + + + + + | Advance | 10/22/2015 10:31 | | | | Directive | AM | | | + + + + +
--- OUTSIDE RECORDS SUMMARY | ~2020-01-13 | XMS | Encounter Summary ---
Demographics + + + | Address | [address] | | | [place] [address] | + + + | Home Phone [...] | Organization | [facility] | | | and [place] [...] Providers + +------+ + | Care Oil Gauger Name | Role | Phone | + [...] + + | 06/25/ | Office | [facility] | Katy Sanford MD | Allergic rhinitis, | | 2017 | Visit | [facility] [place] | [address] | unspecified | | | | [address] | [place] | seasonality, | | | | [place] | [address] | unspecified trigger; | | | | [address] | | Subacute maxillary | | | | [phone] | | sinusitis | +--------+---------+ + + [...] you have any questions, please call us [phone]. Lab results process: Once we receive the lab results we will contact you with the results one of three ways: A. Normal results/Slight abnormal- We will send you a letter with provider comments/instruc tions. B. Slightly abnormal/adjustment needed- We will call and give your results over the phone i f there is a small adjustment/instruction needed. C. Abnormal results- The front end wheel loader operator will call and schedule a follow up [...] of an inj ury. Date Last Reviewed: 07/05/201619996906-9889 [employer] [address] [place] [address], [place] [address]. All righ ts reserved. This information is [...] diagnosed on 06/20/2018 with Pertussis at [facility]. She reports that she [...] Anxiety Anxiety with depression Benzodiazepine dependence, continuous ([facility]) Borderline diabetes Cervical radicular pain Cervicalgia Depression Diabetes ([facility]) Diabetes mellitus screening Gastro-esophageal reflux Generalized pain Headache Insect bite, multiple Joint pain Left knee injury Left knee pain Migraine headache PCOS (polycystic ovarian syndrome) Pelvic pain Peripheral neuropathy Post depression RUQ pain Spasm of muscle Substance abuse ([facility]) 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 120 mL 0 Unfktdftkpufeos-MGWH-PS (DAYQUIL MULTI-SYMPTOM COLD/FLU PO) Take by mouth. [...] Portions of this report were transcribed using Ciplex voice recognition soft hunter. Although effort was [...] [address] | [place] | [phone] | | [facility] | | [address] | | | - LABORATORY | | | | + + + + + documented in this encounter Visit Diagnoses + + | Diagnosis | + + | Allergic rhinitis, unspecified seasonality, unspecified trigger | + + | Subacute maxillary sinusitis Acute maxillary sinusitis | + + documented in this encounter
--- OUTSIDE RECORDS SUMMARY | ~2020-01-13 | XMS | Encounter Summary ---
Demographics + + + | Address | [address] | | | [place] [address] | + + + | Home Phone [...] | Organization | [facility] | | | [...] Providers + +------+ + | Care Credit Cashier Name | Role | Phone | + [...] + + | 12/25/ | Office | [facility] | Jim Buckner | Migraine without | | 2019 | Visit | CARE [address] | B, DO [address] | status migrainosus, | | | | [place] | [address] [place] | not intractable, | | | | [address] | [address] | unspecified migraine | | | | [phone] | | type (Primary Dx); | | [...] a clinic, healthcare provider s office, drugstore, [facility], or through your workplace. Get [...] Wash your hands often. Use alcohol-based hand medical field representative when you don t have access to [...] and open the door. Date Last Reviewed: 08/04/201619998319-5051 [employer]. [address] [place] [address], [place] [address]. All righ ts reserved. This information is [...] loosen secretions in the nose and lungs. Qkas-sgx-zgtqbtb cold medicines will not shorten the length of time you re sick, but t hey may be helpful for the following symptoms: cough, sore throat, and nasal and sinus conge stion. If you take prescription medicines, ask your healthcare provider or pharmacist which tmjw-npw-uypyyvv medicines are safe to use. (Note: Don't [...] with a muffled voice Date Last Reviewed: 02/02/201819994069-1248 [employer]. [address] [place] [address], [place] [address]. All righ ts reserved. This information is [...] is being changed from Dr. Rader's, to [facility]. Her first visit at the new [...] lumbar back pain. She has tried some nhps-xfi-bafaokc preparations a t home to include DayQuil, [...] of this note have been dictated using [employer] s oftware. It will be reviewed for [...]
--- OUTSIDE RECORDS SUMMARY | ~2020-01-13 | XMS | Encounter Summary ---
Demographics + + + | Address | [address] | | | [place] [address] | + + + | Home Phone [...] + | Organization | [facility] [...] Team Providers + +------+ + | Care Bow Repairer Custom Name | Role | Phone | + +------+ + | Mohinder Gage DO | PCP | | + +------+ + Reason for Visit + + + | Reason | Comments | + + + | ED Follow-up | methamphetamine abuse | + + + Encounter Details +--------+ + + + + | Date | Type | Department | Care Team | Description | +--------+ + + + + | 01/04/ | Telephone | [facility] | Antonia Goyal | ED Follow-up | | 2019 | | MED CTR CASE | [phone] | (methamphetamine | | | | MANAGEMENT [address] | | abuse) | | | | [place], | | | | | | [place] [address] | | | | | | [phone] | | | +--------+ + + + [...]
--- OUTSIDE RECORDS SUMMARY | ~2020-01-13 | XMS | Encounter Summary ---
Demographics + + + | Address | [address] | | | [place] [address] | + + + | Home Phone [...] Organization | [facility] | | | and [...] Providers + +------+ + | Care Supervisor Burling And Joining Name | Role | Phone | + [...] Refill | | 2017 | | [facility] [place] | [address] | | | | | [address] | [place] | | | | | [place], [place] | [address] | | | | | [address] | | | | | | [phone] | | | +--------+--------+ + + + [...]
--- OUTSIDE RECORDS SUMMARY | ~2020-01-13 | XMS | Encounter Summary ---
Demographics + + + | Address | [address] | | | [place] [address] | + + + | Home Phone [...] + | Organization | [facility] [...] Team Providers + +------+ + | Care Geospatial Analyst Name | Role | Phone | + +------+ + PCP | Unavailable | + +------+ + Encounter Details +--------+ + + + + | Date | Type | Department | Care Team | Description | +--------+ + + + + | 09/28/ | [facility] | [facility] | Bogdan, | | | 2010 | Encounter | MED CTR EMERGENCY | Deuce Sainz MD [address] | | | | | [place] [address] | [address] | | | | | [place] | [place] [address] | | | | | [address] | [phone] | | | | | [phone] | | | +--------+ + + + [...]
--- OUTSIDE RECORDS SUMMARY | ~2020-01-13 | XMS | Encounter Summary ---
Demographics + + + | Address | [address] | | | [place] [address] | + + + | Home Phone [...] Team Providers + +------+ + | Care Laser Engraver Name | Role | Phone | + [...] [place] | | | | | | [facility] | [place], [place] | | | | | | [place], | [address] | | | | | | [place] | Phone: | | | | | | [address] | [phone] | | | | | | Phone: | | | | | | | [phone] | | | | | | | Fax: | | | | | | | [phone] | | + + + + + [...] | | | | CENTER [address] | [facility] [place] | | | | | [place], [place] | [place] [address] | | | | | [address] | [phone] | | | | | [phone] | | | +--------+ + + + [...] ibuprofen for 5 days Follow up with GEOGRAPHY PROFESSOR AttachmentsThe following attachments cannot be sent through [...] Hemorrhagic | Ordered: 08/22/2019 | | Clinic LICENSED BONDSMAN & | Referral | e | ovarian [...] | | Screen, | | | [facility] | | | Urine | | | [...] [address] | [place] | [phone] | | [facility] | | [address] | | | - LABORATORY | | [...] - 1.030 | [facility] | | | [place], | | | [facility] | | [...] [address] | [place] | [phone] | | [facility] | | [address] | | | - LABORATORY | | [...] | 0.59 | 0.55 - 1.02 | [place] | | | | | mg/dL | [facility] | | | | | | MEDICAL | | | | | | CENTER - | | | | | | LABORATORY | | + + + + + + | eGFR if not | >60Comment: GLOMERULAR | >=60 | [facility] | | | | FILTRATION | mL/min/1.73m2 | [facility] | | | [place] | RATE,ESTIMATED | | MEDICAL | | | | mL/min/1.50m0Ybbl than | | CENTER - | | [...] + | [facility] | [address] | [place] | [phone] | | [facility] | | [address] | | | - LABORATORY | | [...] ranges: Trim. Absolute (K/uL) Percentage (%) | [facility] | | 1st 0.003-0.091 K/uL 0.0-0.9% 2nd 0.007-0.247 K/uL | [facility] | | 0.1-2.0% 3rd 0.018-0.456 K/uL 0.1-2.0% | - LABORATORY | + + + + + + + + | Performing | Address | City/State/Zipcode | Phone Number | | Organization | | | | + + + + + | [facility] | [address] | [place] | [phone] | | [facility] | | [address] | | | - LABORATORY | | [...] | | | | | Intravenous, ONCE, [facility] 08/22/19 | | PM PST | [...] | | | | 2335, Patient Address: [address] | | | | | | | [place] [address], | | | | | | + [...]
--- OUTSIDE RECORDS SUMMARY | ~2020-01-13 | XMS | Encounter Summary ---
Demographics + + + | Address | [address] | | | [place] [address] | + + + | Home Phone | | + + + | Preferred Language | Unknown | + + + | Marital Status | Single | + + + | Religion Affiliation | 1013 | + + + | Race | Unknown | + + + | Ethnic Group | Unknown | + + + Author + + + | Author | [facility] | | | and [place] | + + + | Organization | [facility] | [...] Team Providers + +------+ + | Care Cager Operator Name | Role | Phone | + +------+ + PCP | Unavailable | + +------+ + Encounter Details +--------+ + + + + | Date | Type | Department | Care Team | Description | +--------+ + + + + | 11/08/ | [facility] | [facility] | Edi Sprague | | | 2010 | Encounter | MED CTR MP INTRA OP | F, [address] [facility] | | | | | [address] | [place] | | | | | [place] | [address] | | | | | [address] | | | | | | [phone] | | | +--------+ + + + [...] | | | | | | [facility] | | | | | | MEDICAL [...] [address] | [place] | [phone] | | [facility] | | [address] | | | - LABORATORY | | | | + + + + + | [facility] | [address] | [place], [place] | | | [facility] | | [address] | | | - LABORATORY | | | | + + + + + documented in this encounter Visit Diagnoses Not on filedocumented in this encounter"
--- OUTSIDE RECORDS SUMMARY | ~2020-01-13 | XMS | Encounter Summary ---
Demographics + + + | Address | [address] | | | [place] [address] | + + + | Home Phone [...] | Organization | 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, 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 | | | | [place] | [address] | (Primary Dx) | | | | [address] | | | | | | [phone] | | | +--------+---------+ + + + [...] 3 Status: 0 Treatment Plan/Interventions PT EvaluationPT Re-Ldjfyrktld73915 - Therapeutic Sbbmyuwd78833 - Neuromuscular Reeducation9 7530 - Therapeutic Okcmlmdcus58721 - Manual Mllwfau21514 - Self Care/Home Liidtcpvvx32011 - Group Therapeutic Wvcaabjjcp37010 - Aquatic Therapy/Xsqycehsz68030 - Electrical Stimulation, Attended Electronically signed by: Liv Pang PT, 10/15/2018 9:05 Patient Name: Nataly Martinez/: 1980/ Liv Kowalski P T - 10/11/2018 10:00 AM PST [facility] [place] [facility] [address] [place] [address] Physical Therapy Initial Cervical Spine Assessment Date: [...] that 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 She carried her meteorological observer tray on with the left arm. She [...] see above Work status:wants to return to [employer] [place] [employer] Living situation: Currently a Single parent with [...] 4 4 Finger ABD (T1): 4 4 Bellhop Service Captain Strength: Nt Nt Deep Neck Flexors: (normal [...] Certification To: 12/07/2018 Treatment Plan/Interventions PT EvaluationPT Re-Qmeestmbie62168 - Therapeutic Aucaakcp90110 - Neuromuscular Reeducation9 7530 - Therapeutic Shlkrzella62976 - Manual Uuflhwt20522 - Self Care/Home Djghyoobaf03263 - Group Therapeutic Ezitrwxxxm51723 - Aquatic Therapy/Sihdxzhcf11255 - Electrical Stimulation, Attended Patient and/or family [...]
--- OUTSIDE RECORDS SUMMARY | ~2020-01-13 | XMS | Encounter Summary ---
Demographics + + + | Address | [address] | | | [place] [address] | + + + | Home Phone [...] Organization | [facility] | | | and [...] Team Providers + +------+ + | Care Cement Tester Assistant Name | Role | Phone | [...] | | | | CENTER [address] | [address] [place] | (Primary Dx); | | | | [place], [place] | [place] [address] | Nausea and vomiting, | | | | [address] | [phone] | intractability of | | | | [phone] | | vomiting not | | | [...] Everywhere.NAUSEA AND VOMI TINCandi, HOW TO CONTROL (SERBIAN)ABDOMINAL PAIN, ADULT (SERBIAN)documented in this encounter Medications at Time of [...] + | [facility] | [address] | [place] | [phone] | | [facility] | | [address] | | | - LABORATORY | | [...] + | [facility] | [address] | [place] | [phone] | | [facility] | | [address] | | | - LABORATORY | | [...] - 1.030 | [facility] | | | [place], | | | [facility] | | [...] | | Epithelial | | | [facility] | | | Cells, | | | [...] | [address] | [place] | [phone] | | [facility] | | [address] | | | - LABORATORY | | [...] [address] | [place] | [phone] | | [facility] | | [address] | | | - LABORATORY | | [...] + | [facility] | [address] | [place] | [phone] | | [facility] | | [address] | | | - LABORATORY | | [...] mL/min/1.73m2 | [facility] | | | [place] | RATE,ESTIMATED | | MEDICAL | | | | mL/min/1.50f7Gogd than | | CENTER - | | [...] [address] | [place] | [phone] | | [facility] | | [address] | | | - LABORATORY | | [...] [address] | [place] | [phone] | | [facility] | | [address] | | | - LABORATORY | | [...]
--- OUTSIDE RECORDS SUMMARY | ~2020-01-13 | XMS | Encounter Summary ---
Demographics + + + | Address | [address] | | | [place] [address] | + + + | Home Phone [...] | Organization | [facility] [...] Team Providers + +------+ + | Care Outsole Cutter Machine Name | Role | Phone | [...] | | | | CENTER [address] | [address] | ([facility]ERLY [facility]) (Primary Dx); | | | | [place], [place] | [place] | Confusion | | | | [address] | [address] | | | | | [phone] | | | +--------+ + + + [...] stop using drugs contact [facility] [place]. AttachmentsThe following attachments cannot be sent through Care Everywhere.Addiction: Your Treatment Options (Sami)documented in this encounter Medications at Time [...] + | [facility] | [address] | [place] | [phone] | | [facility] | | [address] | | | - LABORATORY | | [...] - 1.030 | [facility] | | | [place], | | | [facility] | | [...] + | [facility] | [address] | [place] | [phone] | | [facility] | | [address] | | | - LABORATORY | | [...] [address] | [place] | [phone] | | [facility] | | [address] | | | - LABORATORY | | [...] + | [facility] | [address] | [place] | [phone] | | [facility] | | [address] | | | - LABORATORY | | [...] + | [facility] | [address] | [place] | [phone] | | [facility] | | [address] | | | - LABORATORY | | [...] [address] | [place] | [phone] | | [facility] | | [address] | | | - LABORATORY | | [...] | | | | | | [employer] | | | | | [...] [address] | [place] | [phone] | | [facility] | | [address] | | | - LABORATORY | | [...] [address] | [place] | [phone] | | [facility] | | [address] | | | - LABORATORY | | [...] [address] | [place] | [phone] | | [facility] | | [address] | | | - LABORATORY | | [...] | | | | | mg/dL | [facility] | | | | | | MEDICAL | | | | | | CENTER - | | | | | | LABORATORY | | + + + + + + | eGFR if not | >60Comment: GLOMERULAR | >=60 | [facility] | | | | FILTRATION | mL/min/1.73m2 | [facility] | | | [place] | RATE,ESTIMATED | | MEDICAL | | | | mL/min/1.29v4Wbme than | | CENTER - | | [...] | 9.5 | 8.7 - 10.4 | [facility] | | | | | mg/dL | [facility] | | | | | [...] [address] | [place] | [phone] | | [facility] | | [address] | | | - LABORATORY | | [...] use as of October 31 | | [facility] | | | | 2018. [...] [address] | [place] | [phone] | | [facility] | | [address] | | | - LABORATORY | | [...] 0.003-0.091 K/uL 0.0-0.9% 2nd 0.007-0.247 K/uL | [facility] | | 0.1-2.0% 3rd 0.018-0.456 K/uL 0.1-2.0% | - LABORATORY | + + + + + + + + | Performing | Address | City/State/Zipcode | Phone Number | | Organization | | | | + + + + + | [facility] | [address] | [place], [place] | [phone] | | [facility] | | [address] | | | - LABORATORY | | [...] | | | | MEI REDMOND MD ([id number]) | | | | | | on [...]
--- OUTSIDE RECORDS SUMMARY | ~2020-01-13 | XMS | Encounter Summary ---
Demographics + + + | Address | [address] | | | [place] [address] | + + + | Home Phone [...] | Organization | [facility] | | | and [place] [...] Team Providers + +------+ + | Care Travel Agent Name | Role | Phone | [...] | | | | | | [place] [address] | | | | | | [phone] | | | +--------+ + + + [...]
--- OUTSIDE RECORDS SUMMARY | ~2020-01-13 | XMS | Encounter Summary ---
Demographics + + + | Address | 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) | | | | [address] | [phone] | | | | | [phone] | | | +--------+ + + + [...] Care Everywhere.Muscle Spasm (E nglish)Getting Help, Addiction (Uzbek)documented in this encounter Medications at Time [...] | | | | mg/dL | [facility] | | | | | | MEDICAL | | | | | | CENTER - | | | | | | LABORATORY | | + + + + + + | eGFR if not | >60Comment: GLOMERULAR | >=60 | [facility] | | | | FILTRATION | mL/min/1.73m2 | [facility] | | | [place] | RATE,ESTIMATED | | MEDICAL | | | | mL/min/1.21g8Ckpv than | | CENTER - | | [...] | | | | mg/dL | [facility] | | | | | [...] [address] | [place] | [phone] | | [facility] | | [address] | | | - LABORATORY | | [...]
--- OUTSIDE RECORDS SUMMARY | ~2020-01-13 | XMS | Encounter Summary ---
Demographics + + + | Address | [address] | | | [place] [address] | + + + | Home Phone [...] + | Organization | [facility] | [...] Providers + +------+ + | Care Lead Software Development Engineer Name | Role | Phone | [...] | | | | CENTER [address] | | Dx) | | | | [place], [place] | | | | | | [address] | | | | | | [phone] | | | +--------+ + + + [...]
--- OUTSIDE RECORDS SUMMARY | ~2020-01-13 | XMS | Encounter Summary ---
Demographics + + + | Address | [address] | | | [place] [address] | + + + | Home Phone [...] + | Organization | [facility] | [...] Team Providers + +------+ + | Care Civil Engineering Specialist Name | Role | Phone | + +------+ + PCP | Unavailable | + +------+ + Encounter Details +--------+ + + + + | Date | Type | Department | Care Team | Description | +--------+ + + + + | 09/30/ | [facility] | [facility] | Edi Sprague | | | 2010 | Encounter | MED CTR LABORATORY | MD José [address] [facility] [facility] | | | | | [address] [place] | [place] [address] | | | | | [place] | [address] | | | | | [address] | | | | | | [phone] | | | +--------+ + + + [...]
--- OUTSIDE RECORDS SUMMARY | ~2020-01-13 | XMS | Encounter Summary ---
Demographics + + + | Address | [address] | | | [place] [address] | + + + | Home Phone [...] | Organization | [facility] | | | [...] Team Providers + +------+ + | Care Swim Coach Name | Role | Phone | [...] | | | | | | | [address] | | | | | | | Phone: | | | | | | | [phone] | | | | | | | Fax: | | | | | | | [phone] | | +--------+ + + + + [...] | | | | | | | [address] | | | | | | | Phone: | | | | | | | [phone] | | | | | | | Fax: | | | | | | | [phone] | | +--------+ + + + + [...] + + | 10/26/ | Hospital | [facility] | Edi Sprague | Delivery normal | | 2016 - | Encounter | MED CTR MOTHER BABY | MD José [address] | (Primary Dx) | | | | [address] | [place] | | | 10/28/ | | [place] | [address] | | | 2015 | | [address] | | | | | | [phone] | | | +--------+ + + + [...] 10/28/2015 ATTENDING CLINICIAN: Edi Sprague MD PRIMARY AUTOMATIC WHEEL LINE OPERATOR: No Physician on file HISTORY OF PRESENT [...] and your baby go home, [facility] will check to be [...] or your baby are having any problems. [phone] [employer]. [address] [place] [address]. All righ ts reserved. This information is [...] Keena Fournier RN - 10/27/2015 3:48 PM [id number] report given to Antonia and Simran rns [...] [address] | [place] | [phone] | | [facility] | | [address] | | | - LABORATORY | | [...] [address] | [place] | [phone] | | [facility] | | [address] | | | - LABORATORY | | [...] | | | | | | [facility] | | | | | | MEDICAL [...] [address] | [place] | [phone] | | [facility] | | [address] | | | - LABORATORY | | [...] | | | | | modification) on [facility] 10/27/15 at | | | | | [...]
--- OUTSIDE RECORDS SUMMARY | ~2020-01-13 | XMS | Encounter Summary ---
Demographics + + + | Address | [address] | | | [place] [address] | + + + | Home Phone [...] + | Organization | [facility] | [...] Team Providers + +------+ + | Care Back Shoe Worker Name | Role | Phone | + +------+ + PCP | Unavailable | + +------+ + Encounter Details +--------+ + + + + | Date | Type | Department | Care Team | Description | +--------+ + + + + | 06/11/ | [facility] | [facility] | Lizzie Olivares | | | 2009 | Encounter | MED CTR EMERGENCY | MD Sterling Mcfarlane | | | | | [place] [address] | [facility], | | | | | [place] | [place] [address] | | | | | [address] | [phone] | | | | | [phone] | | | +--------+ + + + [...]
--- OUTSIDE RECORDS SUMMARY | ~2020-01-13 | XMS | Encounter Summary ---
Demographics + + + | Address | [address] | | | [place] [address] | + + + | Home Phone [...] Organization | [facility] | | | and [...] Team Providers + +------+ + | Care Personal Financial Counselor Name | Role | Phone | [...] | Appointment | | 2019 | | [facility] | Aide | | | | | THERAPY [address] | | | | | [address] [place] | | | | | | [address] | | | | | | [phone] | | | +--------+ + + + [...]
--- OUTSIDE RECORDS SUMMARY | ~2020-01-13 | XMS | Encounter Summary ---
Demographics + + + | Address | [address] | | | [place] [address] | + + + | Home Phone [...] Organization | [facility] | | [...] Team Providers + +------+ + | Care Stamping Mill Tender Name | Role | Phone | + +------+ + | Mohinder Gage DO | PCP | | + +------+ + Reason for Visit +--------+ + | Reason | Comments | +--------+ + | Spasms | seen at [facility] 3 x in past week. pt rambling in triage, | | | states iv drug use, has not used in 3 days | +--------+ + Encounter Details +--------+ + + + + | Date | Type | Department | Care Team | Description | +--------+ + + + + | 12/07/ | Emergency | [facility] | Arcenio Daniels | Methamphetamine use | | 2019 | | MEDICAL CENTER | DO Jim 88Manuel | ([facility]) (Primary Dx); | | | | EMERGENCY CENTER | [address] | Alcohol use | | | | [address] | [place], [place] | | | | | [place], [place] | [address] | | | | | [address] | [phone] | | | | | [phone] | | | +--------+ + + + [...] sent through Care Everywhere.Getting Help, A ddiction (Mohawk)Addiction: Ask Yourself These Questions (Mohawk)documented in this encoun ter Medications at Time [...] | | | | | performed at [facility] | | | | | | [facility];[place], [place] | | | | | | [address] | | | | + + + [...] | + + + + + | [facility] | [address] | [place] [address] | [phone] | + + + + + Urinalysis [...] - 1.030 | [facility] | | | [place], | | | LABORATORY | | | [...] | | | Urine | performed at [facility];[address] | | LABORATORY | | | | [place] | | | | | | [address] | | | | + + + [...] | + + + + + | [facility] | [address] | [place] [address] | [phone] | + + + + + , Serum, Qual (12/08/2019 9:28 PM PDT) + + + + + + | Component | Value | Ref Range | Performed | Pathologist | | | | | At | Signature | + + + + + + | Preg, Serum | NEGATIVEComment: Testing | NEG | [facility] | | | | performed at [facility] | | LABORATORY | | | | [address];[place], [place] | | | | | | [address] | | | | + + + + + + + + | Specimen | + + | Blood | + + + + + + + | Performing | Address | City/State/Zipcode | Phone Number | | Organization | | | | + + + + + | [facility] | [address] | [place] [address] | [phone] | + + + + + Ethanol (12/08/2019 9:28 PM PDT) + + + + + + | Component | Value | Ref Range | Performed | Pathologist | | | | | At | Signature | + + + + + + | ALCOHOL, | 86 (H)Comment: Testing | <10 mg/dL | [facility] | | | SERUM/PLASM | performed at [facility];[address] | | LABORATORY | | | A | [address];[place] | | | | | | [address] | | | | + + + + + + + + | Specimen | + + | Blood | + + + + + + + | Performing | Address | City/State/Zipcode | Phone Number | | Organization | | | | + + + + + | [facility] | [address] | [place] [address] | [phone] | + + + + + Acetaminophen [...] | | en, S | performed at [facility];888 | ug/mL | LABORATORY | | | | [address];[place], [place] | | | | | | [address] | | | | + + + + + + + + | Specimen | + + | Blood | + + + + + + + | Performing | Address | City/State/Zipcode | Phone Number | | Organization | | | | + + + + + | [facility] | [address] | [place] [address] | [phone] | + + + + + Salicylate Level (12/08/2019 9:28 PM PDT) + + + + + + | Component | Value | Ref Range | Performed | Pathologist | | | | | At | Signature | + + + + + + | Salicylate, | <3.0Comment: Testing | 2.8 - 20.0 | [facility] | | | mg/dL | performed at [facility];888 | mg/dL | LABORATORY | | | | [address];[place], [place] | | | | | | [address] | | | | + + + + + + + + | Specimen | + + | Blood | + + + + + + + | Performing | Address | City/State/Zipcode | Phone Number | | Organization | | | | + + + + + | [facility] | [address] | [place] [address] | [phone] | + + + + + Comprehensive [...] | >60Comment: GFR <60: | >60 | [facility] | | | GFR | [...] | | | | | | MDRD [facility] traceable | | | | | | equation.Testing | | | | | | performed at [facility];[address] | | | | | | [facility];[place], [place] | | | | | | [address] | | | | + + + + + + + + | Specimen | + + | Blood | + + + + + + + | Performing | Address | City/State/Zipcode | Phone Number | | Organization | | | | + + + + + | [facility] | [address] | [place] [address] | [phone] | + + + + + CBC [...] | | | Absolute | performed at [facility];[address] | K/uL | LABORATORY | | | | [address];[place], [place] | | | | | | [address] | | | | + + + + + + + + | Specimen | + + | Blood | + + + + + + + | Performing | Address | City/State/Zipcode | Phone Number | | Organization | | | | + + + + + | [facility] | [address] | [place] [address] | [phone] | + + + + + documented in this encounter Visit Diagnoses + + | Diagnosis | + + | 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
--- OUTSIDE RECORDS SUMMARY | ~2020-01-13 | XMS | Encounter Summary ---
Demographics + + + | Address | [address] | | | [place] [address] | + + + | Home Phone [...] | [facility] | [...] Team Providers + +------+ + | Care Ob Tech Name | Role | Phone | [...] + + | 01/08/ | Emergency | [facility] | Lorena [place] | Nonintractable | | 2019 | | MED CTR EMERGENCY | MD Niurka [address] | episodic headache, | | | | CENTER [address] [place], | unspecified headache | | | | [place] | [place] [address] | type (Primary Dx) | | | | [address] | [phone] | | | | | [phone] | | | +--------+ + + + [...] be sent through Care Everywhere.Headache, Unspe cified (Ugandan)documented in this encounter Medications at Time of [...]
--- OUTSIDE RECORDS SUMMARY | ~2020-01-13 | XMS | Encounter Summary ---
Demographics + + + | Address | [address] | | | [place] [address] | + + + | Home Phone | | + + + | Preferred Language | Unknown | + + + | Marital Status | Single | + + + | Holiness Affiliation | 1013 | + + + | Race | Unknown | + + + | Ethnic Group | Unknown | + + + Author + + + | Author | [facility] | | | and [place] | + + + | Organization | [facility] | | [...] Team Providers + +------+ + | Care Veterinarian Epidemiologist Name | Role | Phone | + [...] + + | 12/07/ | Emergency | [facility] | [place], | 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 | | MED CTR EMERGENCY | MD [address] | abuse (HCC) (Primary | | | | CENTER [address] | [place] | Dx) | | | | [place] | [address] | | | | | [address] | | | | | | [phone] | | | +--------+ + + + [...] through Care Everywhere.Methamphetamine Abuse and Addiction, Understanding (Egyptian)documented in this encounter Medications at Time of [...]
--- OUTSIDE RECORDS SUMMARY | ~2020-01-13 | XMS | Encounter Summary ---
Demographics + + + | Address | [address] | | | [place] [address] | + + + | Home Phone [...] | Organization | [facility] [...] Team Providers + +------+ + | Care Tick Eradicator Name | Role | Phone | + [...] | syndrome associated | | | | [place] | [address] | with cervical rib | | | | [address] | [place] | (Primary Dx) | | | | [phone] | [address] | | | | | | | [...] and enlarge the t horacic outlet space Uwdh-ajf-ejwsxnl pain medicine to relieve pain and swelling [...] Arm or hand that is suddenly cool, smoke jumper supervisor in color, or swollen Sudden weakness of your hand Symptoms that don t get better with therapy Date Last Reviewed: 04/13/201519996556-7645 [employer]. [address] [place] [address], [place] [address]. All righ ts reserved. This information is [...] done t phil ordered by PCP in [place]) Nataly is a 37 y.o. 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 Her right upper extremity is essentially asymptomatic. She does have slight numbness when s he lays on the right side too long but not bothersome. She has no progressive weakness. No recent injuries. She has a PCP in [place] who ordered an cervical x-ray which she did today at [place] but decided to come here due to difficulties getting into see her regular doc tor brackets single parent of 3 full-time job and [...] 37-year-old female in mild acute distress. Sh cristobla has no abnormalities to inspection of either [...] cervical spine series performed earlier today at [place]. There is minor D degenerative disc disease C4-5 and C5-6. Not mention of the radiology report are cervica l ribs. The left C7 shows an asymmetric quite large cervical rib. Assessment and Plans: 1. 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 [...] as needed This note was dictated using [employer] voice recognition software. Occasional wrong- word or [...]
--- OUTSIDE RECORDS SUMMARY | ~2020-01-13 | XMS | Encounter Summary ---
Demographics + + + | Address | [address] | | | [place] [address] | + + + | Home Phone [...] + | Organization | [facility] | [...] Team Providers + +------+ + | Care Flying Shear Operator Name | Role | Phone | [...] | | | | CENTER [address] | 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 | | | [place] | | | y | | | [...] | | | St. | | | [place] | | | y H. | | [...] | | | 2020 | | | [place] | | | | | | Health [...] | | | 2020 | | | [place] | | | | | | Health [...] | | | otify/ | | | [id number] | | | [id number] | | | [id number] | | | [id number] | | | [id number] | | | [id number] | | | | | | PLEASE [...] - 1.030 | [facility] | | | [place], | | | [place] | | [...] [address] | [place] | [phone] | | [facility] | | [address] | | | - LABORATORY | | [...] [address] | [place] | [phone] | | [facility] | | [address] | | | - LABORATORY | | [...] [address] | [place] | [phone] | | [facility] | | [address] | | | - LABORATORY | | [...]
--- OUTSIDE RECORDS SUMMARY | ~2020-01-13 | XMS | Encounter Summary ---
Demographics + + + | Address | [address] | | | [place] [address] | + + + | Home Phone [...] | [facility] | | [...] Team Providers + +------+ + | Care Fan Blade Aligner Name | Role | Phone | + [...] Refill | | 2019 | | MEDIC[facility] [place] | [address] | | | | | [address] | [place] | | | | | [place], [place] | [address] | | | | | [address] | | | | | | [phone] | | | +--------+--------+ + + + [...]
--- OUTSIDE RECORDS SUMMARY | ~2020-01-13 | XMS | Encounter Summary ---
Demographics + + + | Address | [address] | | | [place] [address] | + + + | Home Phone [...] Organization | [facility] [...] Team Providers + +------+ + | Care Fur Coat Sewer Name | Role | Phone | + [...] + + | 01/05/ | Emergency | [facility] | [place], | Migraine without | | 2020 | | MED CTR EMERGENCY | [place] [address] | status migrainosus, | | | | CENTER [address] | [place] | not intractable, | | | | [place], [place] | [address] | unspecified migraine | | | | [address] | | type (Primary Dx) | | | | [phone] | | | +--------+ + + + [...] through Care Everywhere.Migraine Headac hes, Preventing, Triggers (Yoruba)documented in this encounter Medications at Time [...] J?MRN: | | | | | | [id number] | | | [id number] | | | riteri | | | [...] | | 1 0 | | | Andrew | | | | | | Health [...] | | | St. | | | [place] | | | y | | | [...] | | | St. | | | [place] | | | y H. | | [...] | | | 2020 | | | Andrew | | | | | | Health [...] | | | 2020 | | | Andrew | | | | | | Health [...]
--- OUTSIDE RECORDS SUMMARY | ~2020-01-13 | XMS | Encounter Summary ---
Demographics + + + | Address | [address] | | | [place] [address] | + + + | Home Phone [...] | Organization | [facility] [...] Team Providers + +------+ + | Care Polymerization Helper Name | Role | Phone | [...] 2019 | | MED CTR CASE | [phone] | drug use, panic | | | | MANAGEMENT [address] | | attack) | | | | [place], | | | | | | [place] [address] | | | | | | [phone] | | | +--------+ + + + [...]
--- OUTSIDE RECORDS SUMMARY | ~2020-01-13 | XMS | Encounter Summary ---
Demographics + + + | Address | [address] | | | [place] [address] | + + + | Home Phone [...] | Organization | [facility] | | [...] Team Providers + +------+ + | Care Staff Mine Warfare Officer Name | Role | Phone | + +------+ + PCP | Unavailable | + +------+ + Encounter Details +--------+ + + + + | Date | Type | Department | Care Team | Description | +--------+ + + + + | 09/30/ | [facility] | [facility] | Edi Sprague | | | 2010 | Encounter | MED CTR LABORATORY | MD José [address] | | | | | [address] [place] | [place] | | | | | [place] | [address] | | | | | [address] | | | | | | [phone] | | | +--------+ + + + [...]
--- OUTSIDE RECORDS SUMMARY | ~2020-01-13 | XMS | Encounter Summary ---
Demographics + + + | Address | [address] | | | [place] [address] | + + + | Home Phone [...] | Organization | [facility] [...] Team Providers + +------+ + | Care Permanent Waver Name | Role | Phone | + [...] | | | | CENTER [address] | [address] | | | | | [place], [place] | [place] [address] | | | | | [address] | [phone] | | | | | [phone] | | | +--------+ + + + [...] J?MRN: | | | | | | [id number] | | | [id number] | | | riteri | | | [...] | | 1 0 | | | [place] | | | | | | Health [...] | | | 2020 | | | [place] | | | | | | Health [...] | | | 2020 | | | [place] | | | | | | Health [...]
--- OUTSIDE RECORDS SUMMARY | ~2020-01-13 | XMS | Encounter Summary ---
Demographics + + + | Address | [address] | | | [place] [address] | + + + | Home Phone [...] | Organization | [facility] [...] Providers + +------+ + | Care Property Insurance Inspector Name | Role | Phone | + +------+ + PCP | Unavailable | + +------+ + Encounter Details +--------+ + + + + | Date | Type | Department | Care Team | Description | +--------+ + + + + | 09/18/ | Hospital | [facility] | Mojgan Nicholas | Endometriosis of | | 2008 | Encounter | CONVERSION DEP [address] | [place] [phone] | Pelvic Peritoneum | | | | [place]A ROSS | (Fax) | | | | | [place], [place] | | | | | | [address] | | | | | | [phone] | | | +--------+ + + + [...] Performed At | + + + | [id number] | | | Page 1 Diagnostic Note | | | / | | | [facility] | | | NAME: [place] [address] | | | | | | | | | DATE OF : 1980 ORDER NUMBER: [id number] EXAM | | | DATE/TIME: 09/18/2008 01:30 [...] - 04/28/2019 11:05 PM PDT | | [id number] Page 1 | | Diagnostic Note / | | APW | | [facility] NAME: JEAN-PAULBennyNATALY | | [place] [address] | | | | DATE OF : 1980 | | | | ORDER NUMBER: [id number] | | EXAM DATE/TIME: 09/18/2008 01:30 P [...]
--- OUTSIDE RECORDS SUMMARY | ~2020-01-13 | XMS | Encounter Summary ---
Demographics + + + | Address | [address] | | | [place] [address] | + + + | Home Phone [...] Organization | [facility] | | | and [...] Providers + +------+ + | Care Quality Control Operator Name | Role | Phone | [...] [address] | | | | | [facility] [place] | [place] [address] | | | | | [address] | [phone] | | | | | [phone] | | | +--------+ + + + [...] Performed At | + + + | [id number] | | | Page 1 Diagnostic Note | | | / | | | [facility] | | | NAME: NATALY [place], [place] [address] | | | | | | | | | DATE OF : 1980 ORDER NUMBER: [id number] EXAM | | | DATE/TIME: 03/26/2009 10:07 [...] - 04/28/2019 11:05 PM PDT | | [id number] Page 1 | | Diagnostic Note / | | APW | | [facility] NAME: NATALY BEDOYA | | [place] [address] | | | | DATE OF : 1980 | | | | ORDER NUMBER: [id number] | | EXAM DATE/TIME: 03/26/2009 10:07 A [...]
--- OUTSIDE RECORDS SUMMARY | ~2020-01-13 | XMS | Encounter Summary ---
Demographics + + + | Address | [address] | | | [place] [address] | + + + | Home Phone [...] | Organization | [facility] | | [...] Team Providers + +------+ + | Care Assembler Small Products Name | Role | Phone | + [...] 2019 | | MED CTR CASE | [phone] | (methamphetamine | | | | MANAGEMENT [address] | | abuse) | | | | [place], | | | | | | [place] [address] | | | | | | [phone] | | | +--------+ + + + [...]
--- OUTSIDE RECORDS SUMMARY | ~2020-01-13 | XMS | Encounter Summary ---
Demographics + + + | Address | [address] | | | [place] [address] | + + + | Home Phone [...] Organization | [facility] | | | and [...] Team Providers + +------+ + | Care Experimental Mechanic Spacecraft Name | Role | Phone | + [...] + + | 01/08/ | Emergency | [facility] | Lorena Oakley | Nonintractable | | 2019 | | MED CTR EMERGENCY | MD Niurka [address] | episodic headache, | | | | CENTER [address] | [address] [place], | unspecified headache | | | | [place] | [place] [address] | type (Primary Dx) | | | | [address] | [phone] | | | | | [phone] | | | +--------+ + + + [...] be sent through Care Everywhere.Headache, Unspe cified (Kazakh)documented in this encounter Medications at Time of [...]
--- OUTSIDE RECORDS SUMMARY | ~2020-01-13 | XMS | Encounter Summary ---
Demographics + + + | Address | [address] | | | [place] [address] | + + + | Home Phone [...] | Organization | [facility] [...] Team Providers + +------+ + | Care Asphalt Spreader Name | Role | Phone | + [...] with cervical rib | | | | [address] | [place] | (Primary Dx) | | | | [phone] | [address] | | | | | | | [...] and enlarge the t horacic outlet space Pvrz-tdc-rketddg pain medicine to relieve pain and swelling [...] Arm or hand that is suddenly cool, tool grinder operator in color, or swollen Sudden weakness of your hand Symptoms that don t get better with therapy Date Last Reviewed: 04/13/201519994602-5350 [employer]. [address] [place] [address], [place] [address]. All righ ts reserved. This information is [...] done t phil ordered by PCP in [place]) Nataly is a 37 y.o. 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 Her right upper extremity is essentially asymptomatic. She does have slight numbness when s he lays on the right side too long but not bothersome. She has no progressive weakness. No recent injuries. She has a PCP in [place] who ordered an cervical x-ray which she did today at [facility] but decided to come here due to [...] cervical spine series performed earlier today at [facility]. There is minor D degenerative disc disease C4-5 and C5-6. Not mention of the radiology report are cervica l ribs. The left C7 shows an asymmetric quite large cervical rib. Assessment and Plans: 1. 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 [...] as needed This note was dictated using [employer] voice recognition software. Occasional wrong- word or [...]
--- OUTSIDE RECORDS SUMMARY | ~2020-01-13 | XMS | Encounter Summary ---
Demographics + + + | Address | [address] | | | [place] [address] | + + + | Home Phone [...] + | Organization | [facility] | | | and [place] [...] Team Providers + +------+ + | Care Black Mill Operator Name | Role | Phone | [...] + + | 01/02/ | Emergency | [facility] [place] | Bogdan, | Pain in both upper | | 2019 | | MED CTR EMERGENCY | Deuce Sainz MD [address] | extremities (Primary | | | | CENTER [address] | [address] | Dx); Substance | | | | [place], [place] | [place] [address] | abuse (HCC); Sinus | | | | [address] | [phone] | congestion | | | | [phone] | | | +--------+ + + + [...] methamphetamine, please start by calling co mprehensive [phone] documented in this encounter Medications at Time [...] J?MRN: | | | | | | [id number] | | | [id number] | | | riteri | | | [...] | | 1 0 | | | [place] | | | | | | Health [...] | | | St. | | | [place] | | | y | | | [...] | | | St. | | | [place] | | | y H. | | [...] | | | 2020 | | | [place] | | | | | | Health [...] | | | 2020 | | | [place] | | | | | | Health [...] | | | otify/ | | | [id number] | | | [id number] | | | [id number] | | | -9167- | | | [id number] | | | [id number] | | | [...] | | | FILTRATION | mL/min/1.73m2 | [facility] | | | CENTRAL AFRICAN | RATE,ESTIMATED | | MEDICAL | | | | mL/min/1.29o3Mnzv than | | CENTER - | | [...] St | [place] | [phone] | | [facility] | | [address] | | | - LABORATORY | | [...] 0.003-0.091 K/uL 0.0-0.9% 2nd 0.007-0.247 K/uL | [facility] | | 0.1-2.0% 3rd 0.018-0.456 K/uL 0.1-2.0% | - LABORATORY | + + + + + + + + | Performing | Address | City/State/Zipcode | Phone Number | | Organization | | | | + + + + + | [facility] | [address] | [place] | [phone] | | [facility] | | [address] | | | - LABORATORY | | [...]
--- OUTSIDE RECORDS SUMMARY | ~2020-01-13 | XMS | Encounter Summary ---
Demographics + + + | Address | [address] | | | [place] [address] | + + + | Home Phone [...] | [facility] | [...] Providers + +------+ + | Care Medical Scientist Name | Role | Phone | + +------+ + | Katy Sanford MD | PCP | | + +------+ + Encounter Details +--------+ + + + + | Date | Type | Department | Care Team | Description | +--------+ + + + + | 08/30/ | Abstract | [facility] | Katy Sanford MD | | | 2018 | | [facility] | [address] | | | | | [address] | [place] | | | | | [place] | [address] | | | | | [address] | | | | | | [phone] | | | +--------+ + + + [...] documented in this encounter Results External Lab: [facility] Risk HPV (08/19/2013) + + + + [...]
--- OUTSIDE RECORDS SUMMARY | ~2020-01-13 | XMS | Encounter Summary ---
Demographics + + + | Address | [address] | | | [place] [address] | + + + | Home Phone [...] | Author | [facility] | | | and [place] | + + + | Organization | [facility] | | [...] Team Providers + +------+ + | Care Purification Operator Helper Name | Role | Phone | + +------+ + | No, Physician | PCP | Unavailable | + +------+ + Encounter Details +--------+ + + + + | Date | Type | Department | Care Team | Description | +--------+ + + + + | 08/12/ | Hospital | [facility] | Edi Sprague | Normal , | | 2015 | Encounter | [address] | MD José [address] | second trimester | | | | [place] | [place] | | | | | [address] | [address] | | | | | [phone] | | | +--------+ + + + [...]
--- OUTSIDE RECORDS SUMMARY | ~2020-01-13 | XMS | Encounter Summary ---
Demographics + + + | Address | [address] | | | [place] [address] | + + + | Home Phone [...] | Organization | [facility] | [...] Providers + +------+ + | Care Shop Steward Name | Role | Phone | + [...] | | | | CENTER [address] | [address] [place] | | | | | [place], [place] | [place] [address] | | | | | [address] | [phone] | | | | | [phone] | | | +--------+ + + + [...] sent through Care Everywhere.Urinary Tract, Female Anatomy (Irish)documented in this encounter Medications at Time of [...] (L) | 9 - 23 mg/dL | [facility] | | | | | | [facility] | | | | | | MEDICAL | | | | | | CENTER - | | | | | | LABORATORY | | + + + + + + | Creatinine | 0.58 | 0.55 - 1.02 | [facility] | | | | | mg/dL | [facility] | | | | | | MEDICAL | | | | | | CENTER - | | | | | | LABORATORY | | + + + + + + | eGFR if not | >60Comment: GLOMERULAR | >=60 | [facility] | | | | FILTRATION | mL/min/1.73m2 | [facility] | | | [place] | RATE,ESTIMATED | | MEDICAL | | | | mL/min/1.75q2Tbxk than | | CENTER - | | [...] St | [place] | [phone] | | [facility] | | [address] | | | - LABORATORY | | [...] [address] | [place] | [phone] | | [facility] | | [address] | | | - LABORATORY | | [...] ext. | | | | | | [phone] with request. | | | | + [...] organisms seen. | [facility] | | | [facility] | | | [facility] | | | - LABORATORY | + + + + + + + + | Performing | Address | City/State/Zipcode | Phone Number | | Organization | | | | + + + + + | [facility] | [address] | [place], [place] | [phone] | | [facility] | | [address] | | | - LABORATORY | | [...] [address] | [place] | [phone] | | [facility] | | [address] | | | - LABORATORY | | [...] - 1.030 | [facility] | | | [place], | | | [facility] | | [...] [address] | [place] | [phone] | | [facility] | | [address] | | | - LABORATORY | | [...]
--- OUTSIDE RECORDS SUMMARY | ~2020-01-13 | XMS | Encounter Summary ---
Demographics + + + | Address | [address] | | | [place] [address] | + + + | Home Phone [...] | [facility] | | | and [place] | + + + | Organization | [facility] | | | and [place] [...] Team Providers + +------+ + | Care Hospice Educator Name | Role | Phone | [...] [place] | | | | | | [address] | | | | | | [phone] | | | +--------+ + + + [...]
[~2020-01-13 20:29] MED LIST changes: +ALDACTONE25 MG PO
--- OUTSIDE RECORDS SUMMARY | 2020-01-13 20:32 | XMS ---
PreManage Notification: DERRICK BEDOYA Security Telesales Manager Events No recent Security Events currently on file CRITERIA MET - 6 ED Visits in 6 Months - [facility] - Has Care Guidelines - [facility] - 3 Facilities in 90 Days - PDMP - [facility] - 2 Visits in 30 Days CARE PROVIDERS Giancarlo Quarles Community Health Worker 11/16/2019-Cipriano Lennon - PHONE: [phone] Guidelines Source: [employer] [facility] [place] Guidelines Date: 12/11/2019 Care Recommendation: Receiving mental health services through [employer]. Please contact [employer] for any mental health concerns: Carlo [phone] [place] [phone] Crisis Line [phone] E.Brianne VISIT COUNT (12 MO.) 1 [facility] 2 [facility] [place] 1 [facility] [address] [facility] 15 [facility] [address] [facility] TOTAL 24 NOTE: Visits indicate total known visits. ED/UCC VISIT TRACKING (12 MO.) 01/13/2020 20:30 BRENDA Abdi TYPE: Emergency COMPLAINT: - MEDICAL CLEARANCE 01/06/2020 05:41 [facility] [place]O TYPE: Emergency DIAGNOSES: - Migraine, unspecified, not intractable, without status migrai - Muscle Pain - Headache (Adult - Re-evaluation) - Nausea - emesis muscle pain 01/04/2020 16:19 [facility] [place] TYPE: Emergency DIAGNOSES: - Other stimulant abuse, uncomplicated - Spasms - Adverse effect of unspecified drugs, medicaments and biologic - Other stimulant dependence, uncomplicated - Disorientation, unspecified 01/03/2020 06:40 [facility] [place] TYPE: Emergency DIAGNOSES: - arm swelling, leg pain, numbness, sinus pressure - Nasal congestion - Pain in left arm - Sinusitis - Other psychoactive substance abuse, uncomplicated - Pain in right arm - Foot Numbness 01/03/2020 04:17 BRENDA Abdi TYPE: Emergency COMPLAINT: - DIFFICULTY BREATHING DIAGNOSES: - Anxiety disorder, unspecified - Latex allergy status - Allergy status to other drugs, medicaments and biological sub - Other chcf (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 - Unspecified parasitic disease - Allergy status to narcotic agent status - Nicotine dependence, unspecified, uncomplicated - Delusional disorders - Migraine, unspecified, not intractable, without status migrai - Major depressive disorder, single episode, unspecified 12/31/2019 23[facility] [facility] [address] [place] [facility]: Emergency DIAGNOSES: - Other psychoactive substance abuse, uncomplicated - Shoulder Pain - Muscle Pain - muscle spasms, poss electricuted 12/29/2019 16:42 [facility] [place] TYPE: Emergency DIAGNOSES: - Local infection of the skin and subcutaneous tissue, unspecif - Arm Pain - Dizziness; Arm Pain 12/22/2019 13:54 Seda Pelon BlakeTim [place] TYPE: Emergency COMPLAINT: - MULTIPLE COMPLAINTS - RASH OTH NONSPECIFIC SKIN ERUPTION DIAGNOSES: 0. Rash and other nonspecific skin eruption 1. Unspecified contact dermatitis, unspecified cause 3. Other stimulant abuse, uncomplicated 4. Nicotine dependence, cigarettes, uncomplicated 5. Other termination clerk (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 12/11/2019 20:37 [facility] TYPE: Emergency DIAGNOSES: 90770. Medication request 08143. Pain, unspecified 79410. Other injury of unspecified body region, initial encounter 12/11/2019 11:38 [facility] TYPE: Emergency DIAGNOSES: 62358. Infection 43639. L Arm/Headache 41196. Personal history of other diseases of the nervous system and . Cutaneous abscess, unspecified . Other stimulant abuse, uncomplicated . Paresthesia of skin 12/08/2019 21:[address] [facility] [place] TYPE: Emergency DIAGNOSES: - Other stimulant abuse, uncomplicated - Spasms - Other problems related to lifestyle 12/08/2019 04:24 [facility] Jose Manuel [place] TYPE: Emergency DIAGNOSES: - Other stimulant abuse, uncomplicated - Hallucinations 12/06/2019 04:53 [facility] Jose Manuel [place] TYPE: Emergency DIAGNOSES: - Other stimulant abuse, uncomplicated - Spasms - Medical Complacations from alc and drug abuse 12/01/2019 04:05 [facility] [place] TYPE: Emergency DIAGNOSES: - Panic disorder [episodic paroxysmal anxiety] - Pain - Tachycardia - CP,sob - Restlessness and agitation - Other stimulant use, unspecified with intoxication, unspecifi 11/20/2019 14:21 [facility] [place] TYPE: Emergency DIAGNOSES: - Other injury of unspecified body region, initial encounter - Foreign Body in Skin - needle stuck in arm 11/16/2019 15:[address] [facility] [place] TYPE: Emergency DIAGNOSES: - Adverse effect of unspecified drugs, medicaments and biologic - Pruritus, unspecified - Pruritis - Urticaria, unspecified 11/16/2019 12:35 [facility] TYPE: Emergency DIAGNOSES: - Superficial foreign body of left upper arm, initial encounter - Contact with needle (sewing), initial encounter - Encounter for immunization - Arm Injury 11/15/2019 15:37 [facility] TYPE: Emergency DIAGNOSES: - Other psychoactive substance use, unspecified, uncomplicated - Other injury of unspecified body region, initial encounter - FB STUCK IN ARM 10/17/2019 20:15 [facility] [place] TYPE: Emergency DIAGNOSES: - Medical Problem (Minor) - Alcohol use, unspecified with intoxication, uncomplicated 10/07/2019 17:21 [facility] [place] TYPE: Emergency DIAGNOSES: - Urinary Pain - Kidney infection? - Tubulo-interstitial nephritis, not specified as acute or [employer] 4 More Visits INPATIENT VISIT TRACKING (12 MO.) No inpatient visits to display in this time frame [email or web address]
== END 2020-01-14 10:24 | disposition home or self-care (01) ==
LOC: ED 20:29
DX: R45.1 Restlessness and agitation (principal); F15.129 Other stimulant abuse with intoxication, unspecified; G43.909 Migraine, unspecified, not intractable, without status migrainosus; F41.9 Anxiety disorder, unspecified; F32.9 Major depressive disorder, single episode, unspecified; F17.200 Nicotine dependence, unspecified, uncomplicated; Z91.040 Latex allergy status; Z88.2 Allergy status to sulfonamides; Z88.8 Allergy status to other drugs, medicaments and biological substances; Z88.5 Allergy status to narcotic agent; Z79.899 Other long term (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
CPT/HCPCS: 80053; 80176; 81001; 84443; 84703; 85025; 96372; 99285; G0480; J1200; J2060; J3486

== ENCOUNTER 2020-04-19 20:06 | Emergency (ER) | payer OTHER ==
[~2020-04-19] VITALS: Ht 152.4 cm; Wt 59.0 kg
[~2020-04-19 20:06] MED LIST changes: +BACLOFEN20 MG PO; +DESVENLAFAXINE25 MG PO; +METFORMIN HCL500 MG PO; +MULTI VITAMIN1 EACH PO; +ROPINIROLE HCL2 MG PO; +SPIRONOLACTONE50 MG PO; +VENTOLIN HFA18 GM INH
--- OUTSIDE RECORDS SUMMARY | 2020-04-19 20:08 | XMS ---
PreManage Notification: DERRICK BEDOYA Security Communications Engineer Events No recent Security Events currently on file CRITERIA MET - 6 ED Visits in 6 Months - [facility] - Has [facility] Guidelines - PDMP CARE PROVIDERS Giancarlo Quarles Community Health Worker 11/16/2019-Cipriano Lennon - PHONE: [phone] ISABELA HIGUERA Family Medicine: Adult Medicine 01/20/2020-Current PHONE: [phone] SAMI ADKINS Counselor: Addiction (Substance Use Disorder) Current PHONE: [phone] Guidelines Source: [facility] [place] Guidelines Date: 12/11/2019 Care Recommendation: Receiving mental health services through [facility]. Please contact [facility] for any mental health concerns: Carlo [phone] Cristin [phone] [facility] Line [phone] [place] VISIT COUNT (12 MO.) 1 [facility] 2 [facility] 1 [facility] Tim 3 [facility] 15 [facility] 3 BRENDA Quinn TOTAL 25 NOTE: Visits indicate total known visits. ED/UCC VISIT TRACKING (12 MO.) 04/19/2020 20:06 [facility] [place] TYPE: Emergency COMPLAINT: - LT FOOT INJURY 01/13/2020 20:30 [facility] [place] TYPE: Emergency COMPLAINT: - MEDICAL CLEARANCE DIAGNOSES: - Restlessness and agitation - Migraine, unspecified, not intractable, without status migrai - Latex allergy status - Altered mental status, unspecified - Allergy status to sulfonamides status - Allergy status to other drugs, medicaments and biological sub - Anxiety disorder, unspecified - Other rodent exterminator (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 - Major depressive disorder, single episode, unspecified - Other stimulant abuse with intoxication, unspecified - Allergy status to narcotic agent status - Nicotine dependence, unspecified, uncomplicated 01/06/2020 05:41 [facility] [place] TYPE: Emergency DIAGNOSES: - Migraine, unspecified, not intractable, without status migrai - Muscle Pain - Headache (Adult - Re-evaluation) - Nausea - emesis muscle pain 01/04/2020 16:19 [facility] [place] TYPE: Emergency DIAGNOSES: - Other stimulant abuse, uncomplicated - Spasms - Adverse effect of unspecified drugs, medicaments and biologic - Other stimulant dependence, uncomplicated - Disorientation, unspecified 01/03/2020 06:40 [facility] [place] TYPE: Emergency DIAGNOSES: - arm swelling, leg pain, numbness, sinus pressure - Nasal congestion - Pain in left arm - Sinusitis - Other psychoactive substance abuse, uncomplicated - Pain in right arm - Foot Numbness 01/03/2020 04:17 [facility] [facility] TYPE: Emergency COMPLAINT: - DIFFICULTY BREATHING DIAGNOSES: - Anxiety disorder, unspecified - Latex allergy status - Allergy status to other drugs, medicaments and biological sub - Other snf (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 - Unspecified parasitic disease - Allergy status to narcotic agent status - Nicotine dependence, unspecified, uncomplicated - Delusional disorders - Migraine, unspecified, not intractable, without status migrai - Major depressive disorder, single episode, unspecified 12/31/2019 23[facility]36 [facility] [place] DIAGNOSES: - Other psychoactive substance abuse, uncomplicated - Shoulder Pain - Muscle Pain - muscle spasms, poss electricuted 12/29/2019 16:42 [place] TYPE: Emergency DIAGNOSES: - Local infection of the skin and subcutaneous tissue, unspecif - Arm Pain - Dizziness; Arm Pain 12/22/2019 13:54 Seda Pelon [place] TYPE: Emergency COMPLAINT: - MULTIPLE COMPLAINTS - RASH OTH NONSPECIFIC SKIN ERUPTION DIAGNOSES: 0. Rash and other nonspecific skin eruption 1. Unspecified contact dermatitis, unspecified cause 3. Other stimulant abuse, uncomplicated 4. Nicotine dependence, cigarettes, uncomplicated 5. Other snf (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 12/11/2019 20:37 [facility] TYPE: Emergency DIAGNOSES: 70350. Medication request 43039. Pain, unspecified 13177. Other injury of unspecified body region, initial encounter 12/11/2019 11:38 [facility] TYPE: Emergency DIAGNOSES: 53081. Infection 16604. L Arm/Headache 39595. Personal history of other diseases of the nervous system and . Cutaneous abscess, unspecified . Other stimulant abuse, uncomplicated . Paresthesia of skin 12/08/2019 21:00 [facility] [place] TYPE: Emergency DIAGNOSES: - Other stimulant abuse, uncomplicated - Spasms - Other problems related to lifestyle 12/08/2019 04:24 [facility] [place] TYPE: Emergency DIAGNOSES: - Other stimulant abuse, uncomplicated - Hallucinations 12/06/2019 04:53 [facility] [place] TYPE: Emergency DIAGNOSES: - Other stimulant abuse, uncomplicated - Spasms - Medical Complacations from alc and drug abuse 12/01/2019 04:05 [facility] TYPE: Emergency DIAGNOSES: - Panic disorder [episodic paroxysmal anxiety] - Pain - Tachycardia - CP,sob - Restlessness and agitation - Other stimulant use, unspecified with intoxication, unspecifi 11/20/2019 14:21 [facility] TYPE: Emergency DIAGNOSES: - Other injury of unspecified body region, initial encounter - Foreign Body in Skin - needle stuck in arm 11/16/2019 15:43 [facility] TYPE: Emergency DIAGNOSES: - Adverse effect of unspecified drugs, medicaments and biologic - Pruritus, unspecified - Pruritis - Urticaria, unspecified 11/16/2019 12:35 [facility] TYPE: Emergency DIAGNOSES: - Superficial foreign body of left upper arm, initial encounter - Contact with needle (sewing), initial encounter - Encounter for immunization - Arm Injury 11/15/2019 15:37 [facility] [place] TYPE: Emergency DIAGNOSES: - Other psychoactive substance use, unspecified, uncomplicated - Other injury of unspecified body region, initial encounter - FB STUCK IN ARM [facility]17[facility]2019 [facility] DIAGNOSES: - Medical Problem (Minor) - Alcohol use, unspecified with intoxication, uncomplicated Plus 5 More Visits INPATIENT VISIT TRACKING (12 MO.) No inpatient visits to display in this time frame [email or web address]
[2020-04-19] MEDS ORDERED: SERTRALINE HCL100 MG PO (20:55)
== END 2020-04-19 22:50 | disposition home or self-care (01) ==
LOC: ED 20:06
DX: S90.32XA Contusion of left foot, initial encounter (principal); G43.909 Migraine, unspecified, not intractable, without status migrainosus; F41.9 Anxiety disorder, unspecified; F32.9 Major depressive disorder, single episode, unspecified; F17.200 Nicotine dependence, unspecified, uncomplicated; Z91.040 Latex allergy status; Z88.2 Allergy status to sulfonamides; Z88.5 Allergy status to narcotic agent; Z88.8 Allergy status to other drugs, medicaments and biological substances; Z79.899 Other long term (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; Z79.84 Long term (current) use of oral hypoglycemic drugs; W22.8XXA Striking against or struck by other objects, initial encounter
CPT/HCPCS: 73630; 99283-25

== ENCOUNTER 2020-05-29 05:46 | Emergency (ER) | payer OTHER ==
[~2020-05-29] VITALS: Ht 152.4 cm; Wt 59.0 kg
--- OUTSIDE RECORDS SUMMARY | 2020-05-29 05:48 | XMS ---
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 Events No recent Security Events currently on file CRITERIA MET - 6 ED Visits in 6 Months - [facility] - Has Care Guidelines - PDMP - [facility] - 2 Visits in 30 Days CARE PROVIDERS Giancarlo Quarles Community Health Worker 11/16/2019-Cipriano Lennon - PHONE: [phone] ISABELA HIGUERA Family Medicine: Adult Medicine 01/20/2020-Current PHONE: [phone] SAMI ADKINS Counselor: Addiction (Substance Use Disorder) Current PHONE: [phone] Guidelines [facility] Date: 12/11/2019 Care Recommendation: Receiving mental health services through [facility]. Please contact [facility] for any mental health concerns: Carlo [phone] Cristin [phone] Crisis Line [phone] Care History Medical/Surgical 04/20/2020 [facility] - W HAS CALLED PATIENT 3X NO ANSWER- STRAIGHT TO . \T\middot;\T\nbsp; PATIENT WOULD BENEFIT FROM [facility]-PLEASE DISCUSS \ T\middot;\T\nbsp; PLEASE CONTACT [facility]- IF PATIENT ACCEPTS SERVICES- [phone] \T\middot;\T\nbsp; [facility] CAN PROVIDE PATIENT WITH HAND GLOVE CLEANER AND HELP WITH COMMUNITY RESOURCES E.D. VISIT COUNT (12 MO.) 1 [facility] 2 [facility] 1 [facility] 3 [facility] 15 [facility] 5 [facility] TOTAL 27 NOTE: Visits indicate total known visits. ED/UCC VISIT TRACKING (12 MO.) 05/29/2020 05:47 [facility] [place] TYPE: Emergency COMPLAINT: - BODY PAIN,CHILLS 05/03/2020 07:00 [facility] [place] TYPE: Emergency COMPLAINT: - FALL DIAGNOSES: - Contusion of lower back and pelvis, initial encounter - Nicotine dependence, unspecified, uncomplicated - Contusion of left lower leg, initial encounter - Exposure to other specified factors, initial encounter - Contusion of right lower leg, initial encounter - Anxiety disorder, unspecified - Low back pain - Major depressive disorder, single episode, unspecified - Allergy status to narcotic agent status - Latex allergy status - Other emt intermediate (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 - Migraine, unspecified, not intractable, without status migrai - Allergy status to sulfonamides status 04/19/2020 20:06 [facility] [place] TYPE: Emergency COMPLAINT: - LT FOOT INJURY DIAGNOSES: - Allergy status to sulfonamides status - Anxiety disorder, unspecified - Migraine, unspecified, not intractable, without status migrai - Striking against or struck by other objects, initial encounte - Nicotine dependence, unspecified, uncomplicated - Contusion of left foot, initial encounter - Other emt intermediate (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 - Pain in right foot - Allergy status to narcotic agent status - prison (current) use of oral hypoglycemic drugs - Latex allergy status - Allergy status to other drugs, medicaments and biological sub - Major depressive disorder, single episode, unspecified 01/13/2020 20:30 BRENDA Abdi TYPE: Emergency COMPLAINT: - MEDICAL CLEARANCE DIAGNOSES: - Restlessness and agitation - Migraine, unspecified, not intractable, without status migrai - Latex allergy status - Altered mental status, unspecified - Allergy status to sulfonamides status - Allergy status to other drugs, medicaments and biological sub - Anxiety disorder, unspecified - Other detention (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 - Major depressive disorder, single episode, unspecified - Other stimulant abuse with intoxication, unspecified - Allergy status to narcotic agent status - Nicotine dependence, unspecified, uncomplicated 01/06/2020 05:41 [facility] [place] TYPE: Emergency DIAGNOSES: - Migraine, unspecified, not intractable, without status migrai - Muscle Pain - Headache (Adult - Re-evaluation) - Nausea - emesis muscle pain 01/04/2020 16:19 [facility] [place] TYPE: Emergency DIAGNOSES: - Other stimulant abuse, uncomplicated - Spasms - Adverse effect of unspecified drugs, medicaments and biologic - Other stimulant dependence, uncomplicated - Disorientation, unspecified 01/03/2020 06:40 [facility] [place] TYPE: Emergency DIAGNOSES: - arm swelling, [...] drugs, medicaments and biological sub - Other detention (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 - Unspecified parasitic disease - Allergy status to narcotic agent status - Nicotine dependence, unspecified, uncomplicated - Delusional disorders - Migraine, unspecified, not intractable, without status migrai - Major depressive disorder, single episode, unspecified 12/31/2019 23:36 [facility] [place] [facility]: Emergency DIAGNOSES: - Other psychoactive substance abuse, uncomplicated - Shoulder Pain - Muscle Pain - muscle spasms, poss electricuted 12/29/2019 16:42 [facility] [place] TYPE: Emergency DIAGNOSES: - Local infection of the skin and subcutaneous tissue, unspecif - Arm Pain - Dizziness; Arm Pain 12/22/2019 13:54 Seda LozanoTim [place] TYPE: Emergency COMPLAINT: - MULTIPLE COMPLAINTS - RASH OTH NONSPECIFIC SKIN ERUPTION DIAGNOSES: 0. Rash and other nonspecific skin eruption 1. Unspecified contact dermatitis, unspecified cause 3. Other stimulant abuse, uncomplicated 4. Nicotine dependence, cigarettes, uncomplicated 5. Other detention (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 12/11/2019 20:37 [facility] TYPE: Emergency DIAGNOSES: 39676. Medication request [id number]. Pain, unspecified 66361. Other injury of unspecified body region, initial encounter 12/11/2019 11:38 [facility] TYPE: Emergency DIAGNOSES: 09901. Infection 22188. L Arm/Headache 12702. Personal history of other diseases of the nervous system and 28224. Cutaneous abscess, unspecified 21094. Other stimulant abuse, uncomplicated 77560. Paresthesia of skin 12/08/2019 21:00 [facility] TYPE: Emergency DIAGNOSES: - Other stimulant abuse, uncomplicated - Spasms - Other problems related to lifestyle 12/08/2019 04:[facility]: [facility] DIAGNOSES: - Other stimulant abuse, uncomplicated - Hallucinations 12/06/2019 04:53 [facility] [place] TYPE: Emergency DIAGNOSES: - Other stimulant abuse, uncomplicated - Spasms - Medical Complacations from alc and drug abuse 12/01/2019 04:05 [facility] [place] TYPE: Emergency DIAGNOSES: - Panic disorder [episodic paroxysmal anxiety] - Pain - Tachycardia - CP,sob - Restlessness and agitation - Other stimulant use, unspecified with intoxication, unspecifi 11/20/2019 14:21 [facility] [place] TYPE: Emergency DIAGNOSES: - Other injury of unspecified body region, initial encounter - Foreign Body in Skin - needle stuck in arm 11/16/2019 15:43 [facility] [place] TYPE: Emergency DIAGNOSES: - Adverse effect of unspecified drugs, medicaments and biologic - Pruritus, unspecified - Pruritis - Urticaria, unspecified 11/16/2019 12:35 [facility] TYPE: Emergency DIAGNOSES: - Superficial foreign body of left upper arm, initial encounter - Contact with needle (sewing), initial encounter - Encounter for immunization - Arm Injury Plus 7 More Visits INPATIENT VISIT TRACKING (12 MO.) No inpatient visits to display in this time frame [id number]
[2020-05-29] MEDS ORDERED: ZOLOFT100 MG PO (06:04)
--- NOTE | 2020-05-29 10:12 | EKG ---
[facility] [address] [place] [address] \T\ T wave abnormality, consider inferior ischemia ST \T\ T wave abnormality, consider anterolateral ischemia Abnormal ECG When compared with ECG of 16-MAR-2020 09:30, ST now depressed in Anterolateral leads T wave inversion now evident in Inferior leads T wave inversion now evident in Anterolateral leads Confirmed by KALANI LANGSTON MD ([id number]) on 05/29/2020 10:12:17 AM Electronically Signed By: KALANI LANGSTON MD 05/29/20 1012 PATIENT NAME: DERRICK BEDOYA Electrocardiogram DATE OF : 84 PHYSICIAN: KALANI LANGSTON MD REPORT #: [id number] REPORT IS CONFIDENTIAL AND NOT TO BE RELEASED WITHOUT AUTHORIZATION
[2020-05-29] MEDS ORDERED: K-TAB ER20 MEQ PO (13:27)
== END 2020-05-29 13:55 | disposition home or self-care (01) ==
LOC: ED 05:46
DX: F15.10 Other stimulant abuse, uncomplicated (principal); E87.6 Hypokalemia; G43.909 Migraine, unspecified, not intractable, without status migrainosus; F32.9 Major depressive disorder, single episode, unspecified; F43.10 Post-traumatic stress disorder, unspecified; F17.200 Nicotine dependence, unspecified, uncomplicated; Z88.8 Allergy status to other drugs, medicaments and biological substances; Z88.5 Allergy status to narcotic agent; Z88.2 Allergy status to sulfonamides; Z88.1 Allergy status to other antibiotic agents; Z91.040 Latex allergy status; Z79.899 Other long term (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
CPT/HCPCS: 51701; 71045; 80053; 81001; 83605; 84703; 85025; 87491; 87591; 93005; 93010; 99285-25; J7030

== ENCOUNTER 2020-06-25 22:12 | Emergency (ER) | payer OTHER ==
[~2020-06-25] VITALS: Ht 152.4 cm; Wt 59.0 kg
[~2020-06-25 22:12] MED LIST changes: +K-TAB ER20 MEQ PO
--- OUTSIDE RECORDS SUMMARY | 2020-06-25 22:16 | XMS ---
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 Events No recent Security Events currently on file CRITERIA MET - 6 ED Visits in 6 Months - [facility] - Has Care Guidelines - PDMP - [facility] - 2 Visits in 30 Days CARE PROVIDERS Giancarlo Quarles Community Health Worker 11/16/2019-Cipriano Lennon - PHONE: [phone] ISABELA HIGUERA Family Medicine: Adult Medicine 01/20/2020-Current PHONE: [phone] SAMI ADKINS Counselor: Addiction (Substance Use Disorder) Current PHONE: [phone] Guidelines Source: [facility] Guidelines Date: 12/11/2019 Care Recommendation: Receiving mental health services through [facility]. Please contact [facility] for any mental health concerns: Carlo [phone] Cristin [phone] Crisis Line [phone] Care History Medical/Surgical 04/20/2020 [facility] - W HAS CALLED PATIENT 3X NO ANSWER- STRAIGHT TO . \T\middot;\T\nbsp; PATIENT WOULD BENEFIT FROM [facility]-PLEASE DISCUSS \ T\middot;\T\nbsp; PLEASE CONTACT [facility]- IF PATIENT ACCEPTS SERVICES- [phone] \T\middot;\T\nbsp; [facility] CAN PROVIDE PATIENT WITH CAR REPAIRER AND HELP WITH COMMUNITY RESOURCES E.D. VISIT COUNT (12 MO.) 1 [facility] [address] [facility] 1 [facility] 3 [facility] 14 [facility] [address] [facility] TOTAL 27 NOTE: Visits indicate total known visits. ED/UCC VISIT TRACKING (12 MO.) 06/25/2020 22:13 [facility] [place] TYPE: Emergency COMPLAINT: - LOW POTASSIUM 05/29/2020 05:47 [facility] [place] TYPE: Emergency COMPLAINT: - BODY PAIN,CHILLS DIAGNOSES: - Other longterm (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 - Allergy status to other antibiotic agents status - Allergy status to narcotic agent status - Post-traumatic stress disorder, unspecified - Other stimulant abuse, uncomplicated - Allergy status to other drugs, medicaments and biological sub - Latex allergy status - Nicotine dependence, unspecified, uncomplicated - Major depressive disorder, single episode, unspecified - Fever, unspecified - Hypokalemia - Allergy status to sulfonamides status - Migraine, unspecified, not intractable, without status migrai 05/03/2020 07:00 [facility] [place] TYPE: Emergency [...] status - Latex allergy status - Other longterm (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 - Migraine, unspecified, not [...] of left foot, initial encounter - Other patient transport orderly (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 - Pain in right foot - Allergy status to narcotic agent status - cma (current) use of oral hypoglycemic drugs - Latex allergy status - Allergy status to other drugs, medicaments and biological sub - Major depressive disorder, single episode, unspecified 01/13/2020 20:30 [facility] [place] TYPE: Emergency COMPLAINT: - MEDICAL CLEARANCE DIAGNOSES: - Restlessness and agitation - Migraine, unspecified, not intractable, without status migrai - Latex allergy status - Altered mental status, unspecified - Allergy status to sulfonamides status - Allergy status to other drugs, medicaments and biological sub - Anxiety disorder, unspecified - Other longterm (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 - Major depressive disorder, single episode, unspecified - Other stimulant abuse with intoxication, unspecified - Allergy status to narcotic agent status - Nicotine dependence, unspecified, uncomplicated 01/06/2020 05:41 [facility] [place] TYPE: Emergency DIAGNOSES: - Migraine, unspecified, not intractable, without status migrai - Muscle Pain - Headache (Adult - Re-evaluation) - Nausea - emesis muscle pain 01/04/2020 16:19 [facility] [place] TYPE: Emergency DIAGNOSES: - Other stimulant abuse, uncomplicated - Spasms - Adverse effect of unspecified drugs, medicaments and biologic - Other stimulant dependence, uncomplicated - Disorientation, unspecified 01/03/2020 06:40 [facility] [place] TYPE: Emergency DIAGNOSES: - arm swelling, [...] drugs, medicaments and biological sub - Other longterm (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 - Unspecified parasitic disease - Allergy status to narcotic agent status - Nicotine dependence, unspecified, uncomplicated - Delusional disorders - Migraine, unspecified, not intractable, without status migrai - Major depressive disorder, single episode, unspecified 12/31/2019 23:36 [facility] [place] TYPE: Emergency DIAGNOSES: - Other psychoactive substance abuse, uncomplicated - Shoulder Pain - Muscle Pain - muscle spasms, poss electricuted 12/29/2019 16:42 [facility] [place] TYPE: Emergency DIAGNOSES: - Local infection of the skin and subcutaneous tissue, unspecif - Arm Pain - Dizziness; Arm Pain 12/22/2019 13:54 Seda Bazzi [place] TYPE: Emergency COMPLAINT: - MULTIPLE COMPLAINTS - RASH OTH NONSPECIFIC SKIN ERUPTION DIAGNOSES: 0. Rash and other nonspecific skin eruption 1. Unspecified contact dermatitis, unspecified cause 3. Other stimulant abuse, uncomplicated 4. Nicotine dependence, cigarettes, uncomplicated 5. Other longterm (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 12/11/2019 20:37 [facility] TYPE: Emergency DIAGNOSES: 03959. Medication request [id number]. Pain, unspecified 71093. Other injury of unspecified body region, initial encounter 12/11/2019 11:38 [facility] TYPE: Emergency DIAGNOSES: 25121. Infection 42387. L Arm/Headache 94160. Personal history of other diseases of the nervous system and 71872. Cutaneous abscess, unspecified 43787. Other stimulant abuse, uncomplicated 06869. Paresthesia of skin 12/08/2019 21:00 [facility] TYPE: Emergency DIAGNOSES: - Other stimulant abuse, uncomplicated - Spasms - Other problems related to lifestyle 12/08/2019 04:24 [facility] [place] TYPE: Emergency DIAGNOSES: - Other stimulant abuse, uncomplicated - Hallucinations 12/06/2019 04:53 [facility] [place] TYPE: Emergency DIAGNOSES: - Other stimulant abuse, uncomplicated - Spasms - Medical Complacations from alc and drug abuse 12/01/2019 04:05 [facility] [place] Manuel [place] TYPE: Emergency DIAGNOSES: - Panic disorder [episodic paroxysmal anxiety] - Pain - Tachycardia - CP,sob - Restlessness and agitation - Other stimulant use, unspecified with intoxication, unspecifi 11/20/2019 14:21 [facility] [place] TYPE: Emergency DIAGNOSES: - Other injury of unspecified body region, initial encounter - Foreign Body in Skin - needle stuck in arm 11/16/2019 15:43 [facility] [place] TYPE: Emergency DIAGNOSES: - Adverse effect of unspecified drugs, medicaments and biologic - Pruritus, unspecified - Pruritis - Urticaria, unspecified Plus 7 More Visits INPATIENT VISIT TRACKING (12 MO.) No inpatient visits to display in this time frame [id number]
[2020-06-25] MEDS ORDERED: VITAMIN B-12250 MCG PO (22:31)
[2020-06-25] MEDS ORDERED: TRAZODONE HCL100 MG PO (22:32)
[2020-06-25] MEDS ORDERED: ROPINIROLE HCL0.5 MG PO (22:33)
[2020-06-25] MEDS ORDERED: METFORMIN HCL500 M1 PO (22:34)
[2020-06-25] MEDS ORDERED: POTASSIUM CHLO20 ME1 PO (23:16)
== END 2020-06-26 00:59 | disposition home or self-care (01) ==
LOC: ED 22:12
DX: E87.6 Hypokalemia (principal); G43.909 Migraine, unspecified, not intractable, without status migrainosus; F32.9 Major depressive disorder, single episode, unspecified; F41.9 Anxiety disorder, unspecified; F43.10 Post-traumatic stress disorder, unspecified; F17.200 Nicotine dependence, unspecified, uncomplicated; Z88.8 Allergy status to other drugs, medicaments and biological substances; Z88.2 Allergy status to sulfonamides; Z88.1 Allergy status to other antibiotic agents; Z88.5 Allergy status to narcotic agent; Z91.040 Latex allergy status; Z79.899 Other long term (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; Z79.84 Long term (current) use of oral hypoglycemic drugs
CPT/HCPCS: 80053; 83690; 85025; 96361; 96365; 99285-25; G0480; J3480; J7030

== ENCOUNTER 2020-06-28 16:33 | Emergency (ER) | payer OTHER ==
[~2020-06-28] VITALS: Ht 152.4 cm; Wt 59.0 kg
[~2020-06-28 16:33] MED LIST changes: +METFORMIN HCL500 M1 PO; +POTASSIUM CHLO20 ME1 PO; +ROPINIROLE HCL0.5 MG PO; +TRAZODONE HCL100 MG PO; +VITAMIN B-12250 MCG PO
--- OUTSIDE RECORDS SUMMARY | 2020-06-28 16:36 | XMS ---
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 Events No recent Security Events currently on file CRITERIA MET - 6 ED Visits in 6 Months - [facility] - Has Care Guidelines - PDMP - [facility] - 2 Visits in 30 Days CARE PROVIDERS Giancarlo Quarles Community Health Worker 11/16/2019-Cipriano Lennon - PHONE: [phone] ISABELA HIGUERA Family Medicine: Adult Medicine 01/20/2020-Current PHONE: [phone] SAMI ADKINS Counselor: Addiction (Substance Use Disorder) Current PHONE: [phone] Guidelines Source: [facility] Guidelines Date: 12/11/2019 Care Recommendation: Receiving mental health services through [facility]. Please contact [facility] for any mental health concerns: Carlo [phone] Cristin [phone] Crisis Line [phone] Care History Medical/Surgical 06/26/2020 [facility] Note from [facility] -polishing pad mounter-DENNIS: 06/01 - email from Sami to Anali - Can you please take a look at the notes below and let us know if there is an update for Nataly Bedoya. -benderc 06/10 update from Sami: [facility]\amp[facility] note that member has agreed to [facility] residential treatment in [place] for treatment. She is not there yet. It\T\rsquo;s possible that she will need detox before going there. [facility] will arrange that. We can keep this open for 2 more weeks and see if she follows through with the admission. That program will be at least 90 days. -benderc 06/23/2020: She backed out of residential treatment. She is however continuing with group treatment. [facility] is working with [employer] to see if they can extend the 45 days out of the house so that she can go to treatment and not lose her housing. Peer is also helping establish with PCP. Ok to close MDT case. Sami Carreon RN 04/20/2020 [facility] - W HAS CALLED PATIENT 3X NO ANSWER- STRAIGHT TO . \T\middot;\T\nbsp; PATIENT WOULD BENEFIT FROM [facility]-PLEASE DISCUSS \ T\middot;\T\nbsp; PLEASE CONTACT [facility]- IF PATIENT ACCEPTS SERVICES- [phone] \T\middot;\T\nbsp; [facility] CAN PROVIDE PATIENT WITH REPRODUCTIVE SURGEON AND HELP WITH COMMUNITY RESOURCES E.D. VISIT COUNT (12 MO.) 1 [facility] 2 [facility] 1 Seda Al 3 [facility] 14 [facility] 7 BRENDA Quinn TOTAL 28 NOTE: Visits indicate total known visits. 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 - Pain in right foot - Allergy status to narcotic agent status - fence maker (current) use of oral hypoglycemic drugs - [...] sub - Anxiety disorder, unspecified - Other group home (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 - Major depressive disorder, single episode, unspecified - Other stimulant abuse with intoxication, unspecified - Allergy status to narcotic agent status - Nicotine dependence, unspecified, uncomplicated 01/06/2020 05:41 [facility] DIAGNOSES: - Migraine, unspecified, not intractable, without status migrai - Muscle Pain - Headache (Adult - Re-evaluation) - Nausea - emesis muscle pain 01/04/2020 16:19 [facility] [place] TYPE: Emergency DIAGNOSES: - Other stimulant abuse, uncomplicated - Spasms - Adverse effect of unspecified drugs, medicaments and biologic - Other stimulant dependence, uncomplicated - Disorientation, unspecified 01/03/2020 06:40 [facility] [place] TYPE: Emergency DIAGNOSES: - arm swelling, [...] drugs, medicaments and biological sub - Other scaffold setter (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 - Unspecified parasitic disease - Allergy status to narcotic agent status - Nicotine dependence, unspecified, uncomplicated - Delusional disorders - Migraine, unspecified, not intractable, without status migrai - Major depressive disorder, single episode, unspecified 12/31/2019 23:36 [facility] [place] TYPE: Emergency DIAGNOSES: - Other psychoactive substance abuse, uncomplicated - Shoulder Pain - Muscle Pain - muscle spasms, poss electricuted 12/29/2019 16:42 [facility] [place] TYPE: Emergency DIAGNOSES: - Local infection of the skin and subcutaneous tissue, unspecif - Arm Pain - Dizziness; Arm Pain 12/22/2019 13:54 Seda [place] TYPE: Emergency COMPLAINT: - MULTIPLE COMPLAINTS - RASH OTH NONSPECIFIC SKIN ERUPTION DIAGNOSES: 0. Rash and other nonspecific skin eruption 1. Unspecified contact dermatitis, unspecified cause 3. Other stimulant abuse, uncomplicated 4. Nicotine dependence, cigarettes, uncomplicated 5. Other group home (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 12/11/2019 20:37 [facility] TYPE: Emergency DIAGNOSES: 90113. Medication request [id number]. Pain, unspecified 16172. Other injury of unspecified body region, initial encounter 12/11/2019 11:38 [facility] TYPE: Emergency DIAGNOSES: 16138. Infection 56314. L Arm/Headache 49186. Personal history of other diseases of the nervous system and 60542. Cutaneous abscess, unspecified 47115. Other stimulant abuse, uncomplicated 82834. Paresthesia of skin 12/08/2019 21:00 [facility] DIAGNOSES: - Other stimulant abuse, uncomplicated - Spasms - Other problems related to lifestyle 12/08/2019 04:24 [facility]: Emergency DIAGNOSES: - Other stimulant abuse, uncomplicated - Hallucinations 12/06/2019 04:53 [facility] [place] TYPE: Emergency DIAGNOSES: - Other stimulant abuse, uncomplicated - Spasms - Medical Complacations from alc and drug abuse 12/01/2019 04:05 [facility] Jose Manuel [place] TYPE: Emergency DIAGNOSES: - Panic disorder [episodic paroxysmal anxiety] - Pain - Tachycardia - CP,sob - Restlessness and agitation - Other stimulant use, unspecified with intoxication, unspecifi 11/20/2019 14:21 [facility] [place] TYPE: Emergency DIAGNOSES: - Other injury of unspecified body region, initial encounter - Foreign Body in Skin - needle stuck in arm Plus 8 More Visits INPATIENT VISIT TRACKING (12 MO.) No inpatient visits to display in this time frame [email or web address]
[2020-06-28] MEDS ORDERED: OMEPRAZOLE20 MG PO (18:48)
== END 2020-06-28 19:00 | disposition home or self-care (01) ==
LOC: ED 16:33
DX: R53.81 Other malaise (principal); G43.909 Migraine, unspecified, not intractable, without status migrainosus; F41.9 Anxiety disorder, unspecified; F32.9 Major depressive disorder, single episode, unspecified; F43.10 Post-traumatic stress disorder, unspecified; F17.200 Nicotine dependence, unspecified, uncomplicated; Z88.2 Allergy status to sulfonamides; Z88.5 Allergy status to narcotic agent; Z91.040 Latex allergy status; Z88.1 Allergy status to other antibiotic agents; Z79.899 Other long term (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; Z79.84 Long term (current) use of oral hypoglycemic drugs
CPT/HCPCS: 80053; 85025; 99284

== ENCOUNTER 2020-07-10 22:57 | Emergency (ER) | payer OTHER ==
[~2020-07-10] VITALS: Ht 152.4 cm; Wt 59.0 kg
[~2020-07-10 22:57] MED LIST changes: +OMEPRAZOLE20 MG PO
--- OUTSIDE RECORDS SUMMARY | 2020-07-10 23:00 | XMS ---
PreManage Notification: NATALY BEDOYA Security Client Service Consultant Events No recent Security Events currently on file CRITERIA MET - 6 ED Visits in 6 Months - [facility] - Has Care Guidelines - PDMP - [facility] - 2 Visits in 30 Days CARE PROVIDERS Giancarlo Quarles Community Health Worker 11/16/2019-[facility] - PHONE: [phone] ISABELA HIGUERA Family Medicine: Adult Medicine 01/20/2020-Current PHONE: [phone] Guidelines Source: [facility] [place] Guidelines Date: 12/11/2019 Care Recommendation: Receiving mental health services through [facility]. [facility]: Carlo [phone] [place] [phone] [facility] [phone] Care History Medical/Surgical 06/29/2020 [facility] - PATIENT WAS LAST SEEN AT [facility] 06/26/2020. - PATIENT HAS A FOLLOW UP APT WITH PCP LAINE RIZVI ON 07/01/2020 06/26/2020 [facility] Note from [facility] -recruiting team lead-DENNIS: 06/01 - email from Sharlene to Anali - Can you please take a look at the notes below and let us know if there is an update for Nataly Bedoya. -benderc 06/10 update from Sharlene: Anderson Sainz\T\amp;D note that member has agreed to [facility] residential treatment in [place] for treatment. She is not there yet. It\T\rsquo;s possible that she will need detox before going there. Anderson will arrange that. We can keep this open for 2 more weeks and see if she follows through with the admission. That program will be at least 90 days. -benderc 06/23/2020: She backed out of residential treatment. She is however continuing with group treatment. [facility] is working with [employer] to see if they can extend the 45 days out of the house so that she can go to treatment and not lose her housing. Peer is also helping establish with PCP. Ok to close MDT case. Sharlene Carreon RN 04/20/2020 [facility] - [facility] HAS CALLED PATIENT 3X NO ANSWER- STRAIGHT TO . \T\middot;\T\nbsp; PATIENT WOULD BENEFIT FROM [facility]-PLEASE DISCUSS \ T\middot;\T\nbsp; PLEASE CONTACT [facility]- IF PATIENT ACCEPTS SERVICES- [phone] \T\middot;\T\nbsp; [facility] CAN PROVIDE PATIENT WITH TRANSPORTATION AIDE AND HELP WITH COMMUNITY RESOURCES E.D. VISIT COUNT (12 MO.) 1 [facility] 2 [facility] [place] 1 Seda Al 3 [facility] 12 [facility] [address] Erick LozanoTim TOTAL 27 NOTE: Visits indicate total known visits. ED/UCC VISIT TRACKING (12 MO.) 07/10/2020 22:58 [facility] [place] TYPE: Emergency COMPLAINT: - DIFFICULTY BREATHING 06/28/2020 16:33 [facility] [place] TYPE: Emergency COMPLAINT: - CONFUSION, WEAKNESS DIAGNOSES: - Nicotine dependence, unspecified, uncomplicated - Upper abdominal pain, unspecified - Allergy status to sulfonamides - Migraine, unspecified, not intractable, without status migrainosus - Other malaise - Allergy status to narcotic agent - Latex allergy status - Allergy status to other antibiotic agents - Post-traumatic stress disorder, unspecified - Anxiety disorder, unspecified - snf (current) use of oral hypoglycemic drugs - Major depressive disorder, single episode, unspecified - Other director long term care (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 06/25/2020 22:13 [facility] [place] TYPE: Emergency COMPLAINT: - LOW POTASSIUM DIAGNOSES: - Allergy status to other drugs, medicaments and biological substances - Allergy status to other antibiotic agents - Hypokalemia - Other director long term care (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 - Allergy status to sulfonamides - Latex allergy status - Nicotine dependence, unspecified, uncomplicated - Anxiety disorder, unspecified - Post-traumatic stress disorder, unspecified - rn long term care (current) use of oral hypoglycemic drugs - Allergy status to narcotic agent - Migraine, unspecified, not intractable, without status migrainosus - Disorientation, unspecified - Major depressive disorder, single episode, unspecified 05/29/2020 05:47 [facility] [place] TYPE: Emergency COMPLAINT: - BODY PAIN,CHILLS DIAGNOSES: - Other mcc (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 - Allergy status to other antibiotic agents - Allergy status to narcotic agent - Post-traumatic stress disorder, unspecified - Other stimulant abuse, uncomplicated - Allergy status to other drugs, medicaments and biological substances - Latex allergy status - Nicotine dependence, unspecified, uncomplicated - Major depressive disorder, single episode, unspecified - Fever, unspecified - Hypokalemia - Allergy status to sulfonamides - Migraine, unspecified, not intractable, without status migrainosus 05/03/2020 07:00 [place] TYPE: Emergency COMPLAINT: - FALL DIAGNOSES: [...] unspecified - Allergy status to narcotic agent - Latex allergy status - Other mcc (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 - Migraine, unspecified, not intractable, without status migrainosus - Allergy status to sulfonamides 04/19/2020 20:06 [facility] [place] TYPE: Emergency COMPLAINT: - LT FOOT INJURY DIAGNOSES: - Allergy status to sulfonamides - Anxiety disorder, unspecified - Migraine, unspecified, not intractable, without status migrainosus - Striking against or struck by other objects, initial encounter - Nicotine dependence, unspecified, uncomplicated - Contusion of left foot, initial encounter - Other director long term care (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 - Pain in right foot - Allergy status to narcotic agent - snf (current) use of oral hypoglycemic drugs - Latex allergy status - Allergy status to other drugs, medicaments and biological substances - Major depressive disorder, single episode, unspecified 01/13/2020 20:30 [facility] [place] TYPE: Emergency COMPLAINT: - MEDICAL CLEARANCE DIAGNOSES: - Restlessness and agitation - Migraine, unspecified, not intractable, without status migrainosus - Latex allergy status - Altered mental status, unspecified - Allergy status to sulfonamides - Allergy status to other drugs, medicaments and biological substances - Anxiety disorder, unspecified - Other mcc (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 - Major depressive disorder, single episode, unspecified - Other stimulant abuse with intoxication, unspecified - Allergy status to narcotic agent - Nicotine dependence, unspecified, uncomplicated 01/06/2020 05:41 [facility] Jose Manuel RE[place]NOS[place] TYPE: Emergency DIAGNOSES: - Migraine, unspecified, not intractable, without status migrainosus - Muscle Pain - Headache (Adult - Re-evaluation) - Nausea - emesis muscle pain 01/04/2020 16:19 [facility] Jose Manuel [place] TYPE: Emergency DIAGNOSES: - Other stimulant abuse, uncomplicated - Spasms - Adverse effect of unspecified drugs, medicaments and biological substances, initial encounter - Other stimulant dependence, uncomplicated - Disorientation, unspecified 01/03/2020 06:40 [facility] [place] [facility]: [facility] DIAGNOSES: - arm swelling, [...] status to other drugs, medicaments and biological substances - Other director long term care (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 - Unspecified parasitic disease - Allergy status to narcotic agent - Nicotine dependence, unspecified, uncomplicated - Delusional disorders - Migraine, unspecified, not intractable, without status migrainosus - Major depressive disorder, single episode, unspecified 12/31/2019 23:36 [facility] [place] [facility]: Emergency DIAGNOSES: - Other psychoactive substance abuse, uncomplicated - Shoulder Pain - Muscle Pain - muscle spasms, poss electricuted 12/29/2019 16:42 [facility] [place] TYPE: Emergency DIAGNOSES: - Local infection of the skin and subcutaneous tissue, unspecified - Arm Pain - Dizziness; Arm Pain 12/22/2019 13:54 [facility] BlakeTim [place] TYPE: Emergency COMPLAINT: - MULTIPLE COMPLAINTS - RASH OTH NONSPECIFIC SKIN ERUPTION DIAGNOSES: 0. Rash and other nonspecific skin eruption 1. Unspecified contact dermatitis, unspecified cause 3. Other stimulant abuse, uncomplicated 4. Nicotine dependence, cigarettes, uncomplicated 5. Other mcc (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 12/11/2019 20:37 [facility] TYPE: Emergency DIAGNOSES: 34948. Medication request [id number]. Pain, unspecified 13901. Other injury of unspecified body region, initial encounter 12/11/2019 11:38 [facility] TYPE: Emergency DIAGNOSES: 74999. Infection 95238. L Arm/Headache 55978. Personal history of other diseases of the nervous system and sense organs 40815. Cutaneous abscess, unspecified 46938. Other stimulant abuse, uncomplicated . Paresthesia of skin 12/08/2019 21:00 [facility] TYPE: Emergency DIAGNOSES: - Other stimulant abuse, uncomplicated - Spasms - Other problems related to lifestyle 12/08/2019 04:24 [facility] Jose Manuel [place] TYPE: Emergency DIAGNOSES: - Other stimulant abuse, uncomplicated - Hallucinations 12/06/2019 04:53 [facility] TYPE: Emergency DIAGNOSES: - Other stimulant abuse, uncomplicated - Spasms - Medical Complacations from alc and drug abuse 12/01/2019 04:05 [facility] Jose Manuel RE[place] TYPE: Emergency DIAGNOSES: - Panic disorder [episodic paroxysmal anxiety] - Pain - Tachycardia - CP,sob - Restlessness and agitation - Other stimulant use, unspecified with intoxication, unspecified Plus 7 More Visits INPATIENT VISIT TRACKING (12 MO.) No inpatient visits to display in this time frame [email or web address]
--- NOTE | 2020-07-13 16:01 | PATH ---
[facility] [address], [place] [address] Signed ORDERING PHYSICIAN: Estela Ramírez MD PATIENT NAME: DERRICK BEDOYA GENDER: José : 1980 Prior History: DATE CASE NUM ADEQUACY DIAGNOSIS HPV RESULTS PHYSICIAN 10/31/18 [id number] Satisfactory NIL Negative Edi Sprague MD The 5 most recent reports are included. This history does not include results of pap smears performed at another laboratory. SPECIMEN(S): MOLECULAR PATHOLOGY RESULTS: SARS-CoV-2 Not Detected ADDITIONAL NOTES.: The Cameron Fusion SARS-CoV-2 Assay is a multiplex real-time PCR (RT-PCR) in vitro diagnostic test intended for the qualitative detection of RNA from SARS-CoV-2 from individuals who meet COVID-19 clinical and/or epidemiological criteria. In general, SARS-CoV-2 RNA can be detected during the acute phase of infection. Positive results indicate the presence of SARS-CoV-2 RNA. Clinical correlation with patient history and other diagnostic information is necessary to determine patient infection status. Positive results do not rule out bacterial infection or co-infection with other viruses. Negative results do not preclude SARS-CoV-2 infection and should not be used as the sole basis for patient management decisions. Negative results must be combined with other clinical observations, patient history, and epidemiological information. The Cameron Fusion SARS-CoV-2 Assay is not yet approved or cleared by the [place] FDA. When there are no FDA-approved or cleared tests available, and other criteria are met, FDA can make tests available under an emergency access mechanism called an Emergency Use Authorization (EUA). The EUA for this test is supported by the [place] Consultant of Health and Human Service's (HHS's) declaration that circumstances exist to justify the emergency use of in vitro diagnostics for the detection and/or diagnosis of the virus that causes COVID-19. This EUA will remain in effect for the duration of the PATIENT NAME: DERRICK BEDOYA PATHOLOGY DATE OF : 84 REPORT #: [id number] PHYSICIAN: JOHN DUMONT PCP: LAINE RIZVI PA-C REPORT IS CONFIDENTIAL AND NOT TO BE RELEASED WITHOUT AUTHORIZATION [facility] [address] [place] [id number] Signed COVID-19 declaration justifying emergency of IVDs, unless it is terminated or revoked by FDA, after which the test may no longer be used. The Cameron Fusion SARS-CoV-2 Assay is for use only under EUA in US laboratories certified under the Clinical Laboratory Improvement Amendments of 1988 (CLIA) to perform high complexity tests. [facility] is certified under CLIA to perform high complexity clinical laboratory testing. PERFORMING LABORATORY.: Molecular testing was performed by [facility] [address] [place] [address] (Automatic Drilling Machine Operator: Dimitris Boo D.O.; CLIA#: [id number]) Diagnostician: System Interface Pathologist Electronically Signed 07/13/2020 Copies: ~ PATIENT NAME: DERRICK BEDOYA PATHOLOGY DATE OF : 84 REPORT #: [id number] PHYSICIAN: JOHN PATHOLOGY PCP: LAINE RIZVI PA-C REPORT IS CONFIDENTIAL AND NOT TO BE RELEASED WITHOUT AUTHORIZATION
== END 2020-07-11 01:26 | disposition home or self-care (01) ==
LOC: ED 22:57
DX: B34.9 Viral infection, unspecified (principal); Z20.828 Contact with and (suspected) exposure to other viral communicable diseases; G43.909 Migraine, unspecified, not intractable, without status migrainosus; F32.9 Major depressive disorder, single episode, unspecified; F41.9 Anxiety disorder, unspecified; F43.10 Post-traumatic stress disorder, unspecified; F17.200 Nicotine dependence, unspecified, uncomplicated; Z91.040 Latex allergy status; Z88.2 Allergy status to sulfonamides; Z88.1 Allergy status to other antibiotic agents; Z88.5 Allergy status to narcotic agent; Z79.899 Other long term (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; Z79.84 Long term (current) use of oral hypoglycemic drugs
CPT/HCPCS: 71046; 80053; 81001; 83735; 84703; 85025; 99284-25; C9803

== ENCOUNTER 2020-07-16 21:17 | Emergency (ER) | payer OTHER ==
[~2020-07-16] VITALS: Ht 152.4 cm; Wt 59.0 kg
--- OUTSIDE RECORDS SUMMARY | 2020-07-16 21:20 | XMS ---
PreManage Notification: NATALY BEDOYA Security Director Of Primary Care Events No recent Security Events currently on file CRITERIA MET - 6 ED Visits in 6 Months - [facility] - Has Care Guidelines - PDMP - [facility] - 2 Visits in 30 Days CARE PROVIDERS Giancarlo Quarles Community Health Worker 11/16/2019-[facility] - PHONE: [phone] LAINE RIZVI Physician Dungeon Master 07/13/2020-Current PHONE: [phone] ISABELA HIGUERA Family Medicine: Adult Medicine 01/20/2020-Current PHONE: [phone] [facility] [place] Guidelines Date: 12/11/2019 Care Recommendation: Receiving mental health services through [facility]. Please contact [facility] for any mental health concerns: Carlo [phone] Crist[place] [phone] Crisis Line [phone] Care History Medical/Surgical 06/29/2020 [facility] - PATIENT WAS LAST SEEN AT [facility] 06/26/2020. - PATIENT HAS A FOLLOW UP APT WITH PCP LAINE RIZVI ON 07/01/2020 06/26/2020 [facility] Note from [facility] -motorized squad lieutenant-DENNIS: 06/01 - email from Sharlene to Anali - Can you please take a look at the notes below and let us know if there is an update for Nataly Bedoya. -benderc 06/10 update from Sharlene: Anderson A\T\amp;D note that member has agreed to [facility] residential treatment in [place] for treatment. She is not there yet. It\T\rsquo;s possible that she will need detox before going there. Anderson will arrange that. We can keep this open for 2 more weeks and see if she follows through with the admission. That program will be at least 90 days. -benderc 06/23/2020: She backed out of residential treatment. She is however continuing with group treatment. [facility] is working with [employer] to see if they can extend the 45 days out of the house so that she can go to treatment and not lose her housing. Peer is also helping establish with PCP. Ok to close MDT case. Sharlene Carreon RN 04/20/2020 [facility] - [facility] HAS CALLED PATIENT 3X NO ANSWER- STRAIGHT TO . \T\middot;\T\nbsp; PATIENT WOULD BENEFIT FROM [facility]-PLEASE DISCUSS \ T\middot;\T\nbsp; PLEASE CONTACT [facility]- IF PATIENT ACCEPTS SERVICES- [phone] \T\middot;\T\nbsp; [facility] CAN PROVIDE PATIENT WITH ADMINISTRATIVE DIETITIAN AND HELP WITH COMMUNITY RESOURCES E.D. VISIT COUNT (12 MO.) 1 [facility] 2 [facility] [place] [address] [facility] 12 [facility] 9 BRENDA Quinn TOTAL 28 NOTE: Visits indicate total known visits. ED/UCC VISIT TRACKING (12 MO.) 07/16/2020 21:17 [facility] [place] TYPE: Emergency COMPLAINT: - POSSIBLE ALLERGIC REACTION 07/10/2020 22:58 [facility] [place] TYPE: Emergency COMPLAINT: - DIFFICULTY BREATHING DIAGNOSES: - Latex allergy status - Contact with and (suspected) exposure to other viral communicable diseases - Post-traumatic stress disorder, unspecified - Headache, unspecified - Allergy status to sulfonamides - Anxiety disorder, unspecified - Viral infection, unspecified - Major depressive disorder, single episode, unspecified - Nicotine dependence, unspecified, uncomplicated - termite helper (current) use of oral hypoglycemic drugs - Allergy status to narcotic agent - Migraine, unspecified, not intractable, without status migrainosus - Other termite treater helper (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 - Allergy status to other antibiotic agents 06/28/2020 16:33 [facility] [place] TYPE: Emergency [...] disorder, unspecified - Anxiety disorder, unspecified - retirement (current) use of oral hypoglycemic drugs - Major depressive disorder, single episode, unspecified - Other fdc (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 06/25/2020 22:13 [facility] [place] TYPE: Emergency COMPLAINT: - LOW POTASSIUM DIAGNOSES: - Allergy status to other drugs, medicaments and biological substances - Allergy status to other antibiotic agents - Hypokalemia - Other termite treater helper (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 - Allergy status to sulfonamides - Latex allergy status - Nicotine dependence, unspecified, uncomplicated - Anxiety disorder, unspecified - Post-traumatic stress disorder, unspecified - retirement (current) use of oral hypoglycemic drugs - Allergy status to narcotic agent - Migraine, unspecified, not intractable, without status migrainosus - Disorientation, unspecified - Major depressive disorder, single episode, unspecified 05/29/2020 05:47 [facility] [place] TYPE: Emergency COMPLAINT: - BODY PAIN,CHILLS DIAGNOSES: - Other termite treater helper (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 - Allergy status to [...] intractable, without status migrainosus 05/03/2020 07:00 [facility] [place] TYPE: Emergency [...] agent - Latex allergy status - Other fdc (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 - Migraine, unspecified, not [...] of left foot, initial encounter - Other termite treater helper (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 - Pain in right foot - Allergy status to narcotic agent - termite helper (current) use of oral hypoglycemic drugs - [...] substances - Anxiety disorder, unspecified - Other termite treater helper (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 - Major depressive disorder, single episode, unspecified - Other stimulant abuse with intoxication, unspecified - Allergy status to narcotic agent - Nicotine dependence, unspecified, uncomplicated 01/06/2020 05:41 [facility] [place] TYPE: Emergency DIAGNOSES: - Migraine, unspecified, not intractable, without status migrainosus - Muscle Pain - Headache (Adult - Re-evaluation) - Nausea - emesis muscle pain 01/04/2020 16:19 [facility] Jose Manuel REYNOSO TYPE: Emergency DIAGNOSES: - Other stimulant abuse, uncomplicated - Spasms - Adverse effect of unspecified drugs, medicaments and biological substances, initial encounter - Other stimulant dependence, uncomplicated - Disorientation, unspecified 01/03/2020 06:40 [facility] [place] [facility]: [facility] DIAGNOSES: - arm swelling, [...] drugs, medicaments and biological substances - Other fdc (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 - Unspecified parasitic disease - Allergy status to narcotic agent - Nicotine dependence, unspecified, uncomplicated - Delusional disorders - Migraine, unspecified, not intractable, without status migrainosus - Major depressive disorder, single episode, unspecified 12/31/2019 23:[facility] DIAGNOSES: - Other psychoactive substance abuse, uncomplicated - Shoulder Pain - Muscle Pain - muscle spasms, poss electricuted 12/29/2019 16:[facility]: Emergency DIAGNOSES: - Local infection of the skin and subcutaneous tissue, unspecified - Arm Pain - Dizziness; Arm Pain 12/22/2019 13:54 [facility] COMPLAINT: - MULTIPLE COMPLAINTS - RASH OTH NONSPECIFIC SKIN ERUPTION DIAGNOSES: 0. Rash and other nonspecific skin eruption 1. Unspecified contact dermatitis, unspecified cause 3. Other stimulant abuse, uncomplicated 4. Nicotine dependence, cigarettes, uncomplicated 5. Other fdc (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 12/11/2019 20:37 [facility] TYPE: Emergency DIAGNOSES: 85432. Medication request 34023. Pain, unspecified 29590. Other injury of unspecified body region, initial encounter 12/11/2019 11:38 [facility] TYPE: Emergency DIAGNOSES: 41865. Infection 65820. L Arm/Headache 51234. Personal history of other diseases of the nervous system and sense organs 69859. Cutaneous abscess, unspecified 69880. Other stimulant abuse, uncomplicated 54792. Paresthesia of skin 12/08/2019 21:00 [facility] TYPE: Emergency DIAGNOSES: - Other stimulant abuse, uncomplicated - Spasms - Other problems related to lifestyle 12/08/2019 [facility] DIAGNOSES: - Other stimulant abuse, uncomplicated - Hallucinations 12/06/2019 04:53 [facility] DIAGNOSES: - Other stimulant abuse, uncomplicated - Spasms - Medical Complacations from alc and drug abuse Plus 8 More Visits INPATIENT VISIT TRACKING (12 MO.) No inpatient visits to display in this time frame [email or web address]
[2020-07-16] MEDS ORDERED: VISTARIL50 MG PO (21:37)
== END 2020-07-16 22:13 | disposition home or self-care (01) ==
LOC: ED 21:17
DX: R00.0 Tachycardia, unspecified (principal); G43.909 Migraine, unspecified, not intractable, without status migrainosus; F32.9 Major depressive disorder, single episode, unspecified; F41.9 Anxiety disorder, unspecified; F43.10 Post-traumatic stress disorder, unspecified; F17.200 Nicotine dependence, unspecified, uncomplicated; Z88.8 Allergy status to other drugs, medicaments and biological substances; Z91.040 Latex allergy status; Z88.2 Allergy status to sulfonamides; Z88.1 Allergy status to other antibiotic agents; Z88.5 Allergy status to narcotic agent; Z79.899 Other long term (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; Z79.84 Long term (current) use of oral hypoglycemic drugs
CPT/HCPCS: 99283

== ENCOUNTER 2020-11-12 16:44 | Emergency (ER) | payer OTHER ==
[~2020-11-12] VITALS: Ht 152.4 cm; Wt 59.0 kg
--- OUTSIDE RECORDS SUMMARY | 2020-11-12 16:48 | XMS ---
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 Guidelines Date: 12/11/2019 Care Recommendation: Receiving mental health services through [facility]. Please contact [facility] for any mental health concerns: Carlo [phone] Cristin [phone] Crisis Line [phone] Care History Medical/Surgical 06/29/2020 [facility] - PATIENT WAS LAST SEEN AT [facility] 06/26/2020. 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 -benderc 06/10 update from Sharlene: Anderson A\T\amp;D note that member has agreed to [facility] residential treatment in [place] for treatment. She is not there yet. It\T\rsquo;s possible that she will need detox before going there. Anderson will arrange that. We can keep this open for 2 more weeks and see if she follows through with the admission. That program will be at least 90 days. -benderc 06/23/2020: She backed out of residential treatment. She is however continuing with group treatment. [facility] is working with [employer] to see if they can extend the 45 days out of the house so that she can go to treatment and not lose her housing. Peer is also helping establish with PCP. Ok to close MDT case. Sharlene Carreon RN 04/20/2020 [facility] - W HAS CALLED PATIENT 3X NO ANSWER- STRAIGHT TO . \T\middot;\T\nbsp; PATIENT WOULD BENEFIT FROM [facility]-PLEASE DISCUSS \ T\middot;\T\nbsp; PLEASE CONTACT [facility]- IF PATIENT ACCEPTS SERVICES- [phone] \T\middot;\T\nbsp; [facility] CAN PROVIDE PATIENT WITH CHIEF GREEN OFFICER AND HELP WITH COMMUNITY RESOURCES E.D. VISIT COUNT (12 MO.) [facility] 2 [facility] [place] 1 Seda Al 3 [facility] 9 [facility] 10 BRENDA Quinn TOTAL 26 NOTE: Visits indicate total known visits. ED/UCC VISIT TRACKING (12 MO.) 11/12/2020 16:46 [facility] [place] TYPE: Emergency COMPLAINT: - TIGHTNESS IN JAW/PAIN IN LT ARM 07/16/2020 21:17 [facility] [place] TYPE: Emergency COMPLAINT: - ALLERGIC REACTION DIAGNOSES: - Allergy status to narcotic agent - Allergy status to other antibiotic agents - Allergy status to sulfonamides - Major depressive disorder, single episode, unspecified - Allergy status to other drugs, medicaments and biological substances - Allergy status to sulfonamides - Post-traumatic stress disorder, unspecified - Latex allergy status - electrolog operator (current) use of oral hypoglycemic drugs - Allergy status to other drugs, medicaments and biological substances - Nicotine dependence, unspecified, uncomplicated - Allergy status to narcotic agent - Allergy status to other antibiotic agents - Tachycardia, unspecified - Migraine, unspecified, not intractable, without status migrainosus - Anxiety disorder, unspecified - Other residential (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 07/10/2020 22:58 [facility] [place] TYPE: Emergency COMPLAINT: - DIFFICULTY BREATHING DIAGNOSES: - Viral infection, unspecified - Allergy status to other antibiotic agents - Other armed custom protection officer (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 - Allergy status to other antibiotic agents - Migraine, unspecified, not intractable, without status migrainosus - Allergy status to narcotic agent - MCFP (current) use of oral hypoglycemic drugs - Nicotine dependence, unspecified, uncomplicated - Major depressive disorder, single episode, unspecified - Latex allergy status - Headache, unspecified - Anxiety disorder, unspecified - Allergy status to sulfonamides - Allergy status to narcotic agent - Headache, unspecified - Post-traumatic stress disorder, unspecified - Allergy status to sulfonamides - Contact with and (suspected) exposure to other viral communicable diseases 06/28/2020 16:33 [facility] [place] TYPE: Emergency COMPLAINT: - CONFUSION, WEAKNESS DIAGNOSES: - Nicotine dependence, unspecified, uncomplicated - Allergy status to other antibiotic agents - Upper abdominal pain, unspecified - Allergy status to sulfonamides - Allergy status to sulfonamides - Allergy status to narcotic agent - Migraine, unspecified, not intractable, without status migrainosus - Other malaise - Allergy status to narcotic agent - Latex allergy status - Allergy status to other antibiotic agents - Post-traumatic stress disorder, unspecified - Anxiety disorder, unspecified - MCFP (current) use of oral hypoglycemic drugs - Major depressive disorder, single episode, unspecified - Other armed custom protection officer (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 06/25/2020 22:13 [facility] [place] TYPE: Emergency COMPLAINT: - LOW POTASSIUM DIAGNOSES: - Nicotine dependence, unspecified, uncomplicated - Major depressive disorder, single episode, unspecified - Disorientation, unspecified - Allergy status to narcotic agent - Migraine, unspecified, not intractable, without status migrainosus - Allergy status to narcotic agent - electrolog operator (current) use of oral hypoglycemic drugs - Post-traumatic stress disorder, unspecified - Anxiety disorder, unspecified - Allergy status to other antibiotic agents - Latex allergy status - Allergy status to sulfonamides - Other residential (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 - Allergy status to sulfonamides - Hypokalemia - Allergy status to other drugs, medicaments and biological substances - Allergy status to other antibiotic agents - Allergy status to other drugs, medicaments and biological substances 05/29/2020 05:47 [facility] [place] TYPE: Emergency COMPLAINT: - BODY PAIN,CHILLS DIAGNOSES: - Other residential (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 - Allergy status to [...] agent - Latex allergy status - Other armed custom protection officer (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 - Migraine, unspecified, not [...] of left foot, initial encounter - Other residential (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 - Pain in right foot - Allergy status to narcotic agent - MCFP (current) use of oral hypoglycemic drugs - [...] substances - Anxiety disorder, unspecified - Other residential (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 - Major depressive disorder, single episode, unspecified - Other stimulant abuse with intoxication, unspecified - Allergy status to narcotic agent - Nicotine dependence, unspecified, uncomplicated 01/06/2020 05:41 [facility] [place] REYNOSO TYPE: Emergency DIAGNOSES: - Migraine, unspecified, not intractable, without status migrainosus - Muscle Pain - Headache (Adult - Re-evaluation) - Nausea - emesis muscle pain [facility] DIAGNOSES: - Other stimulant abuse, uncomplicated - Spasms - Adverse effect of unspecified drugs, medicaments and biological substances, initial encounter - Other stimulant dependence, uncomplicated - Disorientation, unspecified 01/03/2020 06:40 [facility] [place] ANGELES TYPE: Emergency DIAGNOSES: - arm swelling, [...] drugs, medicaments and biological substances - Other residential (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 - Unspecified parasitic disease - Allergy status to narcotic agent - Nicotine dependence, unspecified, uncomplicated - Delusional disorders - Migraine, unspecified, not intractable, without status migrainosus - Major depressive disorder, single episode, unspecified 12/31/2019 23:36 [facility] [place] TYPE: Emergency DIAGNOSES: - Other psychoactive substance abuse, uncomplicated - Shoulder Pain - Muscle Pain - muscle spasms, poss electricuted 12/29/2019 16:42 [facility] [place] TYPE: Emergency DIAGNOSES: - Local infection [...] 4. Nicotine dependence, cigarettes, uncomplicated 5. Other residential (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 12/11/2019 20:37 [facility] TYPE: Emergency DIAGNOSES: 15572. Medication request [id number]. Pain, unspecified 80132. Other injury of unspecified body region, initial encounter 12/11/2019 11:38 [facility] TYPE: Emergency DIAGNOSES: 63689. Infection 76532. L Arm/Headache 98317. Personal history of other diseases of the nervous system and sense organs 43051. Cutaneous abscess, unspecified 67946. Other stimulant abuse, uncomplicated 46415. Paresthesia of skin 12/08/2019 21:00 [facility] TYPE: Emergency DIAGNOSES: - Other stimulant abuse, uncomplicated - Spasms - Other problems related to lifestyle 12/08/2019 04:24 [facility] [place] RE[place] TYPE: Emergency DIAGNOSES: - Other stimulant abuse, uncomplicated - Hallucinations Plus 6 More Visits INPATIENT VISIT TRACKING (12 MO.) No inpatient visits to display in this time frame [id number]
[2020-11-12] MEDS ORDERED: GUAIFENESIN200 MG PO (16:55)
[2020-11-12] MEDS ORDERED: HYDROCODON-ACE1 EA10 PO (18:10)
[2020-11-12] MEDS ORDERED: AMOXICILLIN500 MG PO (18:10)
--- NOTE | 2020-11-14 19:03 | EKG ---
[facility] [address] [place], [place] [address] Signed Normal sinus rhythm Nonspecific T wave abnormality Abnormal ECG When compared with ECG of 29-MAY-2020 06:02, Nonspecific T wave abnormality has replaced inverted T waves in Inferior leads T wave inversion no longer evident in Anterior leads Confirmed by ROLY RUSSELL DO ([id number]) on 11/14/2020 7:03:42 PM Electronically Signed By: ROLY RUSSELL DO 11/14/20 1903 PATIENT NAME: DERRICK BEDOYA Electrocardiogram DATE OF : 84 PHYSICIAN: ROLY RUSSELL DO REPORT #: [id number] REPORT IS CONFIDENTIAL AND NOT TO BE RELEASED WITHOUT AUTHORIZATION
== END 2020-11-12 18:30 | disposition home or self-care (01) ==
LOC: ED 16:44
DX: K04.7 Periapical abscess without sinus (principal); G43.909 Migraine, unspecified, not intractable, without status migrainosus; F17.200 Nicotine dependence, unspecified, uncomplicated; Z88.8 Allergy status to other drugs, medicaments and biological substances; Z91.040 Latex allergy status; Z88.2 Allergy status to sulfonamides; Z88.1 Allergy status to other antibiotic agents; Z88.5 Allergy status to narcotic agent; Z79.899 Other long term (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; Z79.84 Long term (current) use of oral hypoglycemic drugs
CPT/HCPCS: 93005; 93010; 99283-25

== ENCOUNTER 2020-11-14 15:17 | Emergency (ER) | payer OTHER ==
[~2020-11-14] VITALS: Ht 152.4 cm; Wt 59.0 kg
[~2020-11-14 15:17] MED LIST changes: +AMOXICILLIN500 MG PO; +GUAIFENESIN200 MG PO; +HYDROCODON-ACE1 EA10 PO
--- OUTSIDE RECORDS SUMMARY | 2020-11-14 15:20 | XMS ---
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 Events No recent Security Events currently on file CRITERIA MET - 6 ED Visits in 6 Months - [facility] - Has Care Guidelines - PDMP - [facility] - 2 Visits in 30 Days CARE PROVIDERS Giancarlo Quarles Community Health Worker 11/16/2019-Cipriano Lennon - PHONE: [phone] LAINE RIZVI Physician System Support Specialist 07/13/2020-Current PHONE: [phone] ISABELA HIGUERA Family Medicine: Adult Medicine 01/20/2020-Current PHONE: [phone] Guidelines [facility] [place] Guidelines Date: 12/11/2019 Care Recommendation: Receiving mental health services through [facility]. Please contact [facility] for any mental health concerns: Carlo [phone] Cristin [phone] Crisis Line [phone] Care History Medical/Surgical 06/29/2020 [facility] - PATIENT WAS LAST SEEN AT [facility] 06/26/2020. - PATIENT HAS A FOLLOW UP APT WITH PCP LAINE RIZVI ON 07/01/2020 06/26/2020 [facility] Note from [facility] -auto mechanics instructor-DENNIS: 06/01 - email from Sharlene to Anail - Can you please take a look at the notes below and let us know if there is an update for Nataly Bedoya. -benderc 06/10 update from Sharlene: Anderson A\T\amp;D note that member has agreed to [facility] residential treatment in [place] for treatment. She is not there yet. [...] close MDT case. Sharlene Carreon RN 04/20/2020 [facility] - W HAS CALLED PATIENT 3X NO ANSWER- STRAIGHT TO . \T\middot;\T\nbsp; PATIENT WOULD BENEFIT FROM [facility]-PLEASE DISCUSS \ T\middot;\T\nbsp; PLEASE CONTACT [facility]- IF PATIENT ACCEPTS SERVICES- [phone] \T\middot;\T\nbsp; [facility] CAN PROVIDE PATIENT WITH TUBE WINDER AND HELP WITH COMMUNITY RESOURCES E.D. VISIT COUNT (12 MO.) 1 [facility] 2 [facility] [place] 1 Seda Al 3 [facility] 9 [facility] 11 BRENDA Quinn TOTAL 27 NOTE: Visits indicate total known visits. ED/UCC VISIT TRACKING (12 MO.) 11/14/2020 15:18 [facility] [place] TYPE: Emergency COMPLAINT: - FACIAL PAIN 11/12/2020 16:46 [facility] [place] TYPE: Emergency COMPLAINT: - JAW PAIN/ NON INJ 07/16/2020 21:17 [facility] [place] TYPE: Emergency COMPLAINT: - ALLERGIC REACTION DIAGNOSES: - Allergy status to narcotic agent - Allergy status to other antibiotic agents - Allergy status to sulfonamides - Major depressive disorder, single episode, unspecified - Allergy status to other drugs, medicaments and biological substances - Allergy status to sulfonamides - Post-traumatic stress disorder, unspecified - Latex allergy status - care home (current) use of oral hypoglycemic drugs - Allergy status to other drugs, medicaments and biological substances - Nicotine dependence, unspecified, uncomplicated - Allergy status to narcotic agent - Allergy status to other antibiotic agents - Tachycardia, unspecified - Migraine, unspecified, not intractable, without status migrainosus - Anxiety disorder, unspecified - Other snf (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 07/10/2020 22:58 [facility] [place] TYPE: Emergency COMPLAINT: - DIFFICULTY BREATHING DIAGNOSES: - Viral infection, unspecified - Allergy status to other antibiotic agents - Other snf (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 - Allergy status to other antibiotic agents - Migraine, unspecified, not intractable, without status migrainosus - Allergy status to narcotic agent - care home (current) use of oral hypoglycemic drugs - [...] disorder, unspecified - Anxiety disorder, unspecified - green jobs trainer (current) use of oral hypoglycemic drugs - Major depressive disorder, single episode, unspecified - Other marketing strategist (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 06/25/2020 22:13 [facility] [place] TYPE: Emergency COMPLAINT: - LOW POTASSIUM DIAGNOSES: - Nicotine dependence, unspecified, uncomplicated - Major depressive disorder, single episode, unspecified - Disorientation, unspecified - Allergy status to narcotic agent - Migraine, unspecified, not intractable, without status migrainosus - Allergy status to narcotic agent - green jobs trainer (current) use of oral hypoglycemic drugs - Post-traumatic stress disorder, unspecified - Anxiety disorder, unspecified - Allergy status to other antibiotic agents - Latex allergy status - Allergy status to sulfonamides - Other marketing strategist (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 - Allergy status to sulfonamides - Hypokalemia - Allergy status to other drugs, medicaments and biological substances - Allergy status to other antibiotic agents - Allergy status to other drugs, medicaments and biological substances 05/29/2020 05:47 [facility] [place] TYPE: Emergency COMPLAINT: - BODY PAIN,CHILLS DIAGNOSES: - Other snf (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 - Allergy status to [...] agent - Latex allergy status - Other snf (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 - Migraine, unspecified, not [...] of left foot, initial encounter - Other snf (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 - Pain in right foot - Allergy status to narcotic agent - care home (current) use of oral hypoglycemic drugs - [...] substances - Anxiety disorder, unspecified - Other marketing strategist (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 - Major depressive disorder, single episode, unspecified - Other stimulant abuse with intoxication, unspecified - Allergy status to narcotic agent - Nicotine dependence, unspecified, uncomplicated [facility]06[facility] [place] [facility] DIAGNOSES: - Migraine, unspecified, not intractable, without status migrainosus - Muscle Pain - Headache (Adult - Re-evaluation) - Nausea - emesis muscle pain 01/04/2020 [facility] DIAGNOSES: - Other stimulant abuse, uncomplicated - Spasms - Adverse effect of unspecified drugs, medicaments and biological substances, initial encounter - Other stimulant dependence, uncomplicated - Disorientation, unspecified 01/03/2020 06[facility] [place] [facility]: Emergency DIAGNOSES: - arm swelling, leg pain, numbness, sinus pressure - Nasal congestion - Pain in left arm - Sinusitis - Other psychoactive substance abuse, uncomplicated - Pain in right arm - Foot Numbness 01/03/2020 04:17 [facility] [place] TYPE: Emergency COMPLAINT: - DIFFICULTY BREATHING DIAGNOSES: - Anxiety disorder, unspecified - Latex allergy status - Allergy status to other drugs, medicaments and biological substances - Other snf (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 - Unspecified parasitic disease - Allergy status to narcotic agent - Nicotine dependence, unspecified, uncomplicated - Delusional disorders - Migraine, unspecified, not intractable, without status migrainosus - Major depressive disorder, single episode, unspecified 12/31/2019 23:36 [facility] [place] TYPE: Emergency DIAGNOSES: - Other psychoactive substance abuse, uncomplicated - Shoulder Pain - Muscle Pain - muscle spasms, poss electricuted 12/29/2019 [facility] DIAGNOSES: - Local infection [...] Other snf (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 12/11/2019 20:37 [facility] TYPE: Emergency DIAGNOSES: 28458. Medication request 07924. Pain, unspecified 00920. Other injury of unspecified body region, initial encounter 12/11/2019 11:38 [facility] TYPE: Emergency DIAGNOSES: 28151. Infection 44921. L Arm/Headache 54962. Personal history of other diseases of the nervous system and sense organs 35279. Cutaneous abscess, unspecified 63762. Other stimulant abuse, uncomplicated 31234. Paresthesia of skin 12/08/2019 21:00 [facility] TYPE: Emergency DIAGNOSES: - Other stimulant abuse, uncomplicated - Spasms - Other problems related to lifestyle Plus 7 More Visits INPATIENT VISIT TRACKING (12 MO.) No inpatient visits to display in this time frame [id number]
[2020-11-14] MEDS ORDERED: BACLOFEN20 MG PO (17:12)
== END 2020-11-14 19:36 | disposition home or self-care (01) ==
LOC: ED 15:17
DX: R51.9 Headache, unspecified (principal); F64.9 Gender identity disorder, unspecified; Z20.822 Contact with and (suspected) exposure to COVID-19; G43.909 Migraine, unspecified, not intractable, without status migrainosus; F17.200 Nicotine dependence, unspecified, uncomplicated; Z91.040 Latex allergy status; Z88.2 Allergy status to sulfonamides; Z88.1 Allergy status to other antibiotic agents; Z88.5 Allergy status to narcotic agent; Z88.8 Allergy status to other drugs, medicaments and biological substances; Z79.899 Other long term (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; Z79.84 Long term (current) use of oral hypoglycemic drugs
CPT/HCPCS: 80053; 85025; 85651; 99283; A9270; C9803; U0003

== ENCOUNTER 2020-11-17 21:53 | Emergency (ER) | payer OTHER ==
[~2020-11-17] VITALS: Ht 152.4 cm; Wt 57.0 kg
--- OUTSIDE RECORDS SUMMARY | 2020-11-17 21:56 | XMS ---
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 Layer Events No recent Security Events currently on file CRITERIA MET - 6 ED Visits in 6 Months - [facility] - Has Care Guidelines - PDMP - [facility] - 2 Visits in 30 Days CARE PROVIDERS Giancarlo Quarles Community Health Worker 11/16/2019-Cipriano Lennon - PHONE: [phone] LAINE RIZVI Physician Community Reinvestment Act Officer 07/13/2020-Current PHONE: [phone] ISABELA HIGUERA Family Medicine: Adult Medicine 01/20/2020-Current PHONE: [phone] Guidelines Source: [facility] [place] Guidelines Date: 12/11/2019 Care Recommendation: Receiving mental health [facility] through [facility]: Carlo [phone] Cristin [phone] Crisis Line [phone] Care History Medical/Surgical 11/17/2020 [facility] - PATIENT WAS SEEN THE OTHER DAY AT THE PCP OFFICE- PATIENT WAS UPSET WITH PROVIDER AND STATED SHE WANTED TO FIND ANOTHER PCP- - PATIENT HAS AN APT TODAY 11/17/20 WITH PCP LAINE RIZVI. 06/26/2020 [facility] Note from [facility] -executive chef-DENNIS: 06/01 - email from Sharlene to Anali - Can you please take a look at the notes below and let us know if there is an update for Nataly Bedoya. -benderc 06/10 update from Sharlene: Anderson A\T\D note that member has agreed to [facility] residential treatment in [place] for treatment. She is not there yet. Its possible that she will need detox before going there. Anderson will arrange that. We can keep this open for 2 more weeks and see if she follows through with the admission. That program will be at least 90 days. -benderc 06/23/2020: She backed out of residential treatment. She is however continuing with group treatment. [facility] is working with [facility] to see [...] DRUG SERVICES-PLEASE DISCUSS \ T\middot;\T\nbsp; PLEASE CONTACT [facility]- IF PATIENT ACCEPTS SERVICES- [phone] \T\middot;\T\nbsp; [facility] CAN PROVIDE PATIENT WITH REELER OPERATOR AND HELP WITH COMMUNITY RESOURCES E.D. VISIT COUNT (12 MO.) 2 [facility] [place] 1 Seda Al 1 [facility] 9 [facility] 12 BRENDA Quinn TOTAL 25 NOTE: Visits indicate total known visits. ED/UCC VISIT TRACKING (12 MO.) 11/17/2020 21:54 [facility] [place] TYPE: Emergency COMPLAINT: - FACIAL PAIN 11/14/2020 15:18 [facility] [place] TYPE: Emergency COMPLAINT: - FACIAL PAIN 11/12/2020 16:46 [facility] [place] TYPE: Emergency COMPLAINT: - JAW PAIN/ NON INJ DIAGNOSES: - Other half-way (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 - Periapical abscess without sinus - Migraine, unspecified, not intractable, without status migrainosus - Nicotine dependence, unspecified, uncomplicated - longterm (current) use of oral hypoglycemic drugs - Latex allergy status - Allergy status to other drugs, medicaments and biological substances - Allergy status to narcotic agent - Allergy status to other antibiotic agents - Allergy status to sulfonamides 07/16/2020 21:17 [facility] [place] TYPE: Emergency COMPLAINT: - ALLERGIC REACTION DIAGNOSES: - Allergy status to narcotic agent - Allergy status to other antibiotic agents - Allergy status to sulfonamides - Major depressive disorder, single episode, unspecified - Allergy status to other drugs, medicaments and biological substances - Allergy status to sulfonamides - Post-traumatic stress disorder, unspecified - Latex allergy status - moth exterminator (current) use of oral hypoglycemic drugs - Allergy status to other drugs, medicaments and biological substances - Nicotine dependence, unspecified, uncomplicated - Allergy status to narcotic agent - Allergy status to other antibiotic agents - Tachycardia, unspecified - Migraine, unspecified, not intractable, without status migrainosus - Anxiety disorder, unspecified - Other half-way (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 07/10/2020 22:58 [facility] [place] TYPE: Emergency COMPLAINT: - DIFFICULTY BREATHING DIAGNOSES: - Viral infection, unspecified - Allergy status to other antibiotic agents - Other half-way (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 - Allergy status to other antibiotic agents - Migraine, unspecified, not intractable, without status migrainosus - Allergy status to narcotic agent - moth exterminator (current) use of oral hypoglycemic drugs - [...] disorder, unspecified - Anxiety disorder, unspecified - longterm (current) use of oral hypoglycemic drugs - Major depressive disorder, single episode, unspecified - Other salvage determiner (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 06/25/2020 22:13 [facility] [place] TYPE: Emergency COMPLAINT: - LOW POTASSIUM DIAGNOSES: - Nicotine dependence, unspecified, uncomplicated - Major depressive disorder, single episode, unspecified - Disorientation, unspecified - Allergy status to narcotic agent - Migraine, unspecified, not intractable, without status migrainosus - Allergy status to narcotic agent - longterm (current) use of oral hypoglycemic drugs - Post-traumatic stress disorder, unspecified - Anxiety disorder, unspecified - Allergy status to other antibiotic agents - Latex allergy status - Allergy status to sulfonamides - Other salvage determiner (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 - Allergy status to sulfonamides - Hypokalemia - Allergy status to other drugs, medicaments and biological substances - Allergy status to other antibiotic agents - Allergy status to other drugs, medicaments and biological substances 05/29/2020 05:47 [facility] [place] TYPE: Emergency COMPLAINT: - BODY PAIN,CHILLS DIAGNOSES: - Other half-way (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 - Allergy status to [...] agent - Latex allergy status - Other half-way (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 - Migraine, unspecified, not [...] of left foot, initial encounter - Other salvage determiner (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 - Pain in right foot - Allergy status to narcotic agent - moth exterminator (current) use of oral hypoglycemic drugs - Latex allergy status - Allergy status to other drugs, medicaments and biological substances - Major depressive disorder, single episode, unspecified 01/13/2020 20:[address] [facility] [address] [facility] [place] TYPE: Emergency COMPLAINT: - MEDICAL CLEARANCE DIAGNOSES: - Restlessness and agitation - Migraine, unspecified, not intractable, without status migrainosus - Latex allergy status - Altered mental status, unspecified - Allergy status to sulfonamides - Allergy status to other drugs, medicaments and biological substances - Anxiety disorder, unspecified - Other salvage determiner (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 - Major depressive disorder, single episode, unspecified - Other stimulant abuse with intoxication, unspecified - Allergy status to narcotic agent - Nicotine dependence, unspecified, uncomplicated 01/06/2020 05:41 [facility] Jose Manuel RE[facility] TYPE: Emergency DIAGNOSES: - Migraine, unspecified, not intractable, without status migrainosus - Muscle Pain - Headache (Adult - Re-evaluation) - Nausea - emesis muscle pain [facility]2020 [facility] DIAGNOSES: - Other stimulant abuse, uncomplicated - Spasms - Adverse effect of unspecified drugs, medicaments and biological substances, initial encounter - Other stimulant dependence, uncomplicated - Disorientation, unspecified 01/03/2020 06:40 [facility] DIAGNOSES: - arm swelling, leg [...] drugs, medicaments and biological substances - Other half-way (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 - Unspecified parasitic disease - Allergy status to narcotic agent - Nicotine dependence, unspecified, uncomplicated - Delusional disorders - Migraine, unspecified, not intractable, without status migrainosus - Major depressive disorder, single episode, unspecified 12/31/2019 23:36 [facility] DIAGNOSES: - Other psychoactive substance abuse, uncomplicated - Shoulder Pain - Muscle Pain - muscle spasms, poss electricuted 12/29/2019 16:42 [facility] [place] [facility]: [facility] DIAGNOSES: - Local infection of the skin and subcutaneous tissue, unspecified - Arm Pain - Dizziness; Arm Pain 12/22/2019 13:54 [facility] [place] TYPE: Emergency COMPLAINT: - MULTIPLE COMPLAINTS - RASH OTH NONSPECIFIC SKIN ERUPTION DIAGNOSES: 0. Rash and other nonspecific skin eruption 1. Unspecified contact dermatitis, unspecified cause 3. Other stimulant abuse, uncomplicated 4. Nicotine dependence, cigarettes, uncomplicated 5. Other salvage determiner (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 12/11/2019 20:37 [facility] TYPE: Emergency DIAGNOSES: 66064. Medication request 17135. Pain, unspecified 14054. Other injury of unspecified body region, initial encounter 12/11/2019 11:38 [facility] TYPE: Emergency DIAGNOSES: 91455. Infection 71536. L Arm/Headache 06739. Personal history of other diseases of the nervous system and sense organs 32652. Cutaneous abscess, unspecified 94477. Other stimulant abuse, uncomplicated 87132. Paresthesia of skin Plus 5 More Visits INPATIENT VISIT TRACKING (12 MO.) No inpatient visits to display in this time frame [email or web address]
[2020-11-17] MEDS ORDERED: AZITHROMYCIN250 MG PO (22:09)
== END 2020-11-18 00:06 | disposition home or self-care (01) ==
LOC: ED 21:53
DX: R51.9 Headache, unspecified (principal); F17.200 Nicotine dependence, unspecified, uncomplicated; Z88.8 Allergy status to other drugs, medicaments and biological substances; Z88.2 Allergy status to sulfonamides; Z88.1 Allergy status to other antibiotic agents; Z91.040 Latex allergy status; Z88.5 Allergy status to narcotic agent; Z79.899 Other long term (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; Z79.84 Long term (current) use of oral hypoglycemic drugs
CPT/HCPCS: 70450; 70491; 99284-25; Q9967

== ENCOUNTER 2021-06-22 15:47 | Emergency (ER) | payer OTHER ==
[~2021-06-22] VITALS: Ht 152.4 cm; Wt 57.0 kg
[~2021-06-22 15:47] MED LIST changes: +AZITHROMYCIN250 MG PO
--- OUTSIDE RECORDS SUMMARY | 2021-06-22 15:50 | XMS ---
Jackie Notification: DERRICK BEDOYA Security Steamer Operator Events No recent Security Events currently on file CRITERIA MET - PDMP CARE PROVIDERS Robina Giancarlo Community Health Worker 11/16/2019-[facility] - PHONE: [phone] LAINE RIZVI Physician Vp Customer Service 03/02/2021-Current PHONE: [phone] ISABELA HIGUERA Family Medicine: Adult Medicine 01/20/2020-Current PHONE: [phone] Care Guidelines exist for the following facilities: [facility] [place] ( 12/11/2019 ) Care History Medical/Surgical 11/18/2020 [facility] Care Recommendation: - PLEASE REVIEW PDMP - [facility] - USE EXTREME CAUTION IN GIVING NARCOTICS. - Avoid Discharge Narcotic prescriptions if at all possible. Physician discretion. 11/18/2020 [facility] - CHW NOTIFIED [facility] - CASE MANAGEMENT TEAM- PATIENT WOULD BENEFIT FROM MEDICAL CASE MANAGEMENT AND [facility] - [facility] CASE MANAGEMENT WILL BE IN CONTACT WITH PATIENT. 11/17/2020 [facility] - PATIENT WAS SEEN THE OTHER DAY AT THE PCP OFFICE- PATIENT WAS UPSET WITH PROVIDER AND STATED SHE WANTED TO FIND ANOTHER PCP- - PATIENT HAS AN APT TODAY 11/17/20 WITH PCP LAINE BRANCH E.D. VISIT COUNT (12 MO.) 8 [facility]. TOTAL 8 NOTE: Visits indicate total known visits. ED/UCC VISIT TRACKING (12 MO.) 06/22/2021 15:47 [facility] [place] TYPE: Emergency COMPLAINT: - DENTAL PAIN, HEADACHE 11/17/2020 21:54 [facility] [place] TYPE: Emergency COMPLAINT: - FACIAL PAIN/ NO INJ DIAGNOSES: - Headache, unspecified - Other half-way (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 - Latex allergy status - Allergy status to narcotic agent - Nicotine dependence, unspecified, uncomplicated - Allergy status to other drugs, medicaments and biological substances - buttermaker continuous churn (current) use of oral hypoglycemic drugs - Allergy status to other antibiotic agents - Allergy status to sulfonamides 11/14/2020 15:18 [facility] [place] TYPE: Emergency COMPLAINT: - FACIAL PAIN DIAGNOSES: - Other half-way (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 - Allergy status to sulfonamides - Headache, unspecified - Allergy status to other drugs, medicaments and biological substances - nursing home (current) use of oral hypoglycemic drugs - Other specified disorders of teeth and supporting structures - Allergy status to other antibiotic agents - Headache, unspecified - Nicotine dependence, unspecified, uncomplicated - Allergy status to narcotic agent - Gender identity disorder, unspecified - Migraine, unspecified, not intractable, without status migrainosus - Latex allergy status 11/12/2020 16:46 [facility] [place] TYPE: Emergency COMPLAINT: - JAW PAIN/ NON INJ DIAGNOSES: - Other truck terminal manager (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 - Periapical abscess without sinus - Migraine, unspecified, not intractable, without status migrainosus - Nicotine dependence, unspecified, uncomplicated - nursing home (current) use of oral hypoglycemic drugs [...] disorder, unspecified - Latex allergy status - buttermaker continuous churn (current) use of oral hypoglycemic drugs - Allergy status to other drugs, medicaments and biological substances - Nicotine dependence, unspecified, uncomplicated - Allergy status to narcotic agent - Allergy status to other antibiotic agents - Tachycardia, unspecified - Migraine, unspecified, not intractable, without status migrainosus - Anxiety disorder, unspecified - Other truck terminal manager (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 07/10/2020 22:58 [facility] [place] TYPE: Emergency COMPLAINT: - DIFFICULTY BREATHING DIAGNOSES: - Viral infection, unspecified - Allergy status to other antibiotic agents - Other truck terminal manager (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 - Allergy status to other antibiotic agents - Migraine, unspecified, not intractable, without status migrainosus - Allergy status to narcotic agent - buttermaker continuous churn (current) use of oral hypoglycemic drugs - [...] disorder, unspecified - Anxiety disorder, unspecified - buttermaker continuous churn (current) use of oral hypoglycemic drugs - Major depressive disorder, single episode, unspecified - Other half-way (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 06/25/2020 22:[address] [facility] [place] TYPE: Emergency COMPLAINT: - LOW POTASSIUM DIAGNOSES: - Nicotine dependence, unspecified, uncomplicated - Major depressive disorder, single episode, unspecified - Disorientation, unspecified - Allergy status to narcotic agent - Migraine, unspecified, not intractable, without status migrainosus - Allergy status to narcotic agent - nursing home (current) use of oral hypoglycemic drugs - Post-traumatic stress disorder, unspecified - Anxiety disorder, unspecified - Allergy status to other antibiotic agents - Latex allergy status - Allergy status to sulfonamides - Other truck terminal manager (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 - Allergy status to sulfonamides - Hypokalemia - Allergy status to other drugs, medicaments and biological substances - Allergy status to other antibiotic agents - Allergy status to other drugs, medicaments and biological substances INPATIENT VISIT TRACKING (12 MO.) No inpatient visits to display in this time frame [id number]
== END 2021-06-22 21:50 | disposition home or self-care (01) ==
LOC: ED 15:47
DX: K02.9 Dental caries, unspecified (principal); G43.909 Migraine, unspecified, not intractable, without status migrainosus; F17.200 Nicotine dependence, unspecified, uncomplicated; Z91.040 Latex allergy status; Z88.2 Allergy status to sulfonamides; Z88.5 Allergy status to narcotic agent; Z88.8 Allergy status to other drugs, medicaments and biological substances; Z79.84 Long term (current) use of oral hypoglycemic drugs; Z79.899 Other long term (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
CPT/HCPCS: 99282

== ENCOUNTER 2022-02-17 21:31 | Emergency (ER) | payer OTHER ==
[~2022-02-17] VITALS: Ht 152.4 cm; Wt 58.2 kg
--- OUTSIDE RECORDS SUMMARY | 2022-02-17 21:34 | XMS ---
PreManage Notification: DERRICK BEDOYA Security Reimbursement Director Events No recent Security Events currently on file CRITERIA MET - PDMP CARE PROVIDERS Robina Giancarlo Community Health Worker 11/16/2019-Current [facility] - PHONE: [phone] LAINE RIZVI Physician Composition Weatherboard Installer 03/02/2021-Current PHONE: [phone] Almaz Zurita-Mickie Nurse Practitioner: Family Current PHONE: [phone] ISABELA HIGUERA Family Medicine: Adult Medicine 01/20/2020-Current PHONE: Unknown Care Guidelines exist for the following facilities: [facility] [place] ( 12/11/2019 ) Care History Medical/Surgical 11/18/2020 [facility] Care Recommendation: - PLEASE REVIEW PDMP - [place] - USE EXTREME CAUTION IN GIVING NARCOTICS. - Avoid Discharge Narcotic prescriptions if at all possible. Physician discretion. 11/18/2020 [facility] - CHW NOTIFIED [facility] - CASE MANAGEMENT TEAM- PATIENT WOULD BENEFIT FROM MEDICAL CASE MANAGEMENT AND [facility] - [facility] CASE MANAGEMENT WILL BE IN CONTACT WITH PATIENT. 11/17/2020 [facility] - PATIENT WAS SEEN THE OTHER DAY AT THE PCP OFFICE- PATIENT WAS UPSET WITH PROVIDER AND STATED SHE WANTED TO FIND ANOTHER PCP- - PATIENT HAS AN APT TODAY 11/17/20 WITH PCP LAINE BRANCH E.D. VISIT COUNT (12 MO.) 2 [facility]. TOTAL 2 NOTE: Visits indicate total known visits. ED/UCC VISIT TRACKING (12 MO.) 02/17/2022 21:32 [facility] [place] TYPE: Emergency COMPLAINT: - DRUG WITHDRAWLS 06/22/2021 15:47 [facility] [place] TYPE: Emergency COMPLAINT: - DENTAL PAIN, HEADACHE DIAGNOSES: - Allergy status to sulfonamides - Allergy status to narcotic agent - Latex allergy status - Allergy status to other drugs, medicaments and biological substances - Nicotine dependence, unspecified, uncomplicated - Migraine, unspecified, not intractable, without status migrainosus - Dental caries, unspecified - middle or intermediate school principal (current) use of oral hypoglycemic drugs - Other specified disorders of teeth and supporting structures - Other watermelon inspector (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 INPATIENT VISIT TRACKING (12 MO.) No inpatient visits to display in this time frame [id number]
== END 2022-02-18 01:53 | disposition home or self-care (01) ==
LOC: ED 21:31
DX: K29.00 Acute gastritis without bleeding (principal); G43.909 Migraine, unspecified, not intractable, without status migrainosus; F43.10 Post-traumatic stress disorder, unspecified; F17.200 Nicotine dependence, unspecified, uncomplicated; Z88.8 Allergy status to other drugs, medicaments and biological substances; Z91.040 Latex allergy status; Z88.2 Allergy status to sulfonamides; Z88.5 Allergy status to narcotic agent; Z79.899 Other long term (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
CPT/HCPCS: 36415; 80053; 81001; 84703; 85025; 96361; 96374; 96375; 99284-25; J2550; J2765; J7030

== ENCOUNTER 2022-07-19 08:56 | Emergency (ER) | payer OTHER ==
[~2022-07-19] VITALS: Ht 152.4 cm; Wt 58.1 kg
[~2022-07-19 08:56] MED LIST changes: +ALPRAZOLAM0.25 MG PO; +LAMICTAL150 MG PO; +SUMATRIPTAN SU100 MG PO; +TRAZODONE HCL50 MG PO; +XANAX0.25 MG PO
--- OUTSIDE RECORDS SUMMARY | 2022-07-19 08:58 | XMS ---
PreManage Notification: DERRICK BEDOYA Security Teaching Assistant Events 1 event(s) in the past 18 months Most recent security events: Elopement at [facility] 03/15/2022 16:44 - Patient eloped before treatment completed. - Patient with suicidal and/or homicidal ideations eloped. - Patient eloped with IV in place. Details: PATIENT LWBS CRITERIA MET - [facility] CARE PROVIDERS Giancarlo Quarles Community Health Worker 11/16/2019-Cipriano Lennon - PHONE: [phone] Almaz ZuritaP-C Nurse Practitioner: Family Current PHONE: [phone] ISABELA HIGUERA Family Medicine: Adult Medicine 01/20/2020-Current PHONE: Unknown Care Guidelines exist for the following facilities: [facility] [place] ( 12/[facility]/2019 ) Care History Medical/Surgical 11/18/2020 [facility] Care Recommendation: - PLEASE REVIEW PDMP - [place] - USE EXTREME CAUTION IN GIVING NARCOTICS. - Avoid Discharge Narcotic prescriptions if at all possible. Physician discretion. 11/18/2020 [facility] - CHW NOTIFIED [facility] - CASE MANAGEMENT TEAM- PATIENT WOULD BENEFIT FROM MEDICAL CASE MANAGEMENT AND [facility] - [facility] CASE MANAGEMENT WILL BE IN CONTACT WITH PATIENT. 11/17/2020 [facility] - PATIENT WAS SEEN THE OTHER DAY AT THE PCP OFFICE- PATIENT WAS UPSET WITH PROVIDER AND STATED SHE WANTED TO FIND ANOTHER PCP- - PATIENT HAS AN APT TODAY 11/17/20 WITH PCP LAINE BRANCH E.D. VISIT COUNT (12 MO.) 4 [facility]. TOTAL 4 NOTE: Visits indicate total known visits. ED/UCC VISIT TRACKING (12 MO.) 07/19/2022 08:56 [facility] [place] TYPE: Emergency COMPLAINT: - JOINT PAIN, FATIGUE, HEADACHE, R SHOULDER PAIN 04/25/2022 18:12 [facility] [place] TYPE: Emergency COMPLAINT: - WEAKNESS DIAGNOSES: - Anesthesia of skin - Palpitations - Allergy status to sulfonamides - Nicotine dependence, unspecified, uncomplicated - Dizziness and giddiness - Allergy status to other drugs, medicaments and biological substances - Latex allergy status - Other [facility] (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 - Allergy status to narcotic agent - Shortness of breath - Allergy status to other antibiotic agents 03/15/2022 16:44 [facility] [place] TYPE: Emergency COMPLAINT: - ABDOMINAL PAIN 02/17/2022 21:[address] [facility] [place] TYPE: Emergency COMPLAINT: - DRUG WITHDRAWLS DIAGNOSES: - Allergy status to other drugs, medicaments and biological substances - Allergy status to narcotic agent - Latex allergy status - Acute gastritis without bleeding - Allergy status to sulfonamides - Nicotine dependence, unspecified, uncomplicated - Nausea with vomiting, unspecified - Post-traumatic stress disorder, unspecified - Other predatory animal exterminator (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 - Migraine, unspecified, not intractable, without status migrainosus INPATIENT VISIT TRACKING (12 MO.) No inpatient visits to display in this time frame [id number]
[2022-07-19] MEDS ORDERED: MEDROL4 M1 PO (10:56)
== END 2022-07-19 11:19 | disposition home or self-care (01) ==
LOC: ED 08:56
DX: M25.511 Pain in right shoulder (principal); G43.909 Migraine, unspecified, not intractable, without status migrainosus; F43.10 Post-traumatic stress disorder, unspecified; F17.200 Nicotine dependence, unspecified, uncomplicated; Z88.8 Allergy status to other drugs, medicaments and biological substances; Z91.040 Latex allergy status; Z88.1 Allergy status to other antibiotic agents; Z88.5 Allergy status to narcotic agent; Z79.899 Other long term (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
CPT/HCPCS: 73030; 99283-25

== ENCOUNTER 2022-08-12 21:28 | Emergency (ER) | payer OTHER ==
[~2022-08-12] VITALS: Ht 152.4 cm; Wt 61.2 kg
[~2022-08-12 21:28] MED LIST changes: +MEDROL4 M1 PO
--- OUTSIDE RECORDS SUMMARY | 2022-08-12 21:35 | XMS ---
PreManage Notification: DERRICK BEDOYA Security Digital Printer Events 1 event(s) in the past 18 months Most recent security events: Elopement at [facility] 03/15/2022 16:44 - Patient eloped before treatment completed. - Patient with suicidal and/or homicidal ideations eloped. - Patient eloped with IV in place. Details: PATIENT LWBS CRITERIA MET - [facility] - [facility] - 2 Visits in 30 Days CARE PROVIDERS Giancarlo Quarles Community Health Worker 11/16/2019-Cipriano [facility]on - PHONE: [phone] Almaz ZuritaP-C Nurse Practitioner: Family Current PHONE: [phone] ISABELA HIGUERA Family Medicine: Adult Medicine 01/20/2020-Current PHONE: Unknown Care Guidelines exist for the following facilities: [facility] [place] ( 12/11/2019 ) Care History Medical/Surgical 11/18/2020 [facility] Care Recommendation: - PLEASE REVIEW PDMP - [place] - USE EXTREME CAUTION IN GIVING NARCOTICS. - Avoid Discharge Narcotic prescriptions if at all possible. Physician discretion. 11/18/2020 [facility] - CHW NOTIFIED [facility] - CASE MANAGEMENT TEAM- PATIENT WOULD BENEFIT FROM MEDICAL CASE MANAGEMENT AND [facility] - [facility] CASE MANAGEMENT WILL BE IN CONTACT WITH PATIENT. 11/17/2020 [facility] - PATIENT WAS SEEN THE OTHER DAY AT THE PCP OFFICE- PATIENT WAS UPSET WITH PROVIDER AND STATED SHE WANTED TO FIND ANOTHER PCP- - PATIENT HAS AN APT TODAY 11/17/20 WITH PCP LAINE RIZVI. [place] VISIT COUNT (12 MO.) 5 [facility]. TOTAL 5 NOTE: Visits indicate total known visits. ED/UCC VISIT TRACKING (12 MO.) 08/12/2022 21:30 [facility] [place] TYPE: Emergency COMPLAINT: - COVID ISSUES 07/19/2022 08:56 [facility] [place] TYPE: Emergency COMPLAINT: - JOINT PAIN, FATIGUE, HEADACHE, R SHOULDER PAIN DIAGNOSES: - Pain in right shoulder - Latex allergy status - Migraine, unspecified, not intractable, without status migrainosus - Allergy status to other drugs, medicaments and biological substances - Allergy status to other antibiotic agents - Post-traumatic stress disorder, unspecified - Allergy status to narcotic agent - Nicotine dependence, unspecified, uncomplicated - Other long distance operator (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 04/25/2022 18:12 [facility] [place] TYPE: Emergency COMPLAINT: - WEAKNESS DIAGNOSES: - Latex allergy status - Other longterm (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 - Allergy status to narcotic agent - Shortness of breath - Allergy status to other antibiotic agents - Anesthesia of skin - Palpitations - Allergy status to sulfonamides - Nicotine dependence, unspecified, uncomplicated - Dizziness and giddiness - Allergy status to other drugs, medicaments and biological substances 03/15/2022 16:44 [facility] [place] TYPE: Emergency COMPLAINT: - ABDOMINAL PAIN 02/17/2022 21:32 [facility] [place] TYPE: Emergency COMPLAINT: - DRUG WITHDRAWLS DIAGNOSES: - Nausea with vomiting, unspecified - Post-traumatic stress disorder, unspecified - Other long distance operator (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 - Migraine, unspecified, not intractable, without status migrainosus - Allergy status to other drugs, medicaments and biological substances - Allergy status to narcotic agent - Latex allergy status - Acute gastritis without bleeding - Allergy status to sulfonamides - Nicotine dependence, unspecified, uncomplicated INPATIENT VISIT TRACKING (12 MO.) No inpatient visits to display in this time frame [id number]
[2022-08-12] MEDS ORDERED: CYCLOBENZAPRINE10 MG PO (22:26)
--- NOTE | 2022-08-13 07:03 | EKG ---
[facility] [address] [facility] [place], [place] [address] Signed Normal sinus rhythm Normal ECG When compared with ECG of 25-APR-2022 19:16, Nonspecific T wave abnormality now evident in Lateral leads Confirmed by NAGA GREGORIO MD ([id number] on 08/13/2022 7:03:10 AM Electronically Signed By: NAGA GREGORIO MD 08/13/22702 PATIENT NAME: DERRICK BEDOYA Electrocardiogram DATE OF : 84 PHYSICIAN: NAGA GREGORIO MD REPORT #: [id number] REPORT IS CONFIDENTIAL AND NOT TO BE RELEASED WITHOUT AUTHORIZATION
== END 2022-08-12 22:35 | disposition home or self-care (01) ==
LOC: ED 21:28
DX: T88.1XXA Other complications following immunization, not elsewhere classified, initial encounter (principal); R20.2 Paresthesia of skin; L27.1 Localized skin eruption due to drugs and medicaments taken internally; T50.B95A Adverse effect of other viral vaccines, initial encounter; G43.909 Migraine, unspecified, not intractable, without status migrainosus; F43.10 Post-traumatic stress disorder, unspecified; F17.200 Nicotine dependence, unspecified, uncomplicated; Z88.8 Allergy status to other drugs, medicaments and biological substances; Z91.040 Latex allergy status; Z88.2 Allergy status to sulfonamides; Z88.5 Allergy status to narcotic agent; Z79.899 Other long term (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
CPT/HCPCS: 36415; 82553; 85025; 85610; 86140; 93005; 93010; 99283-25

== ENCOUNTER 2022-11-29 13:16 | Emergency (ER) | payer OTHER ==
[~2022-11-29] VITALS: Ht 152.4 cm; Wt 60.1 kg
[~2022-11-29 13:16] MED LIST changes: +CYCLOBENZAPRINE10 MG PO
--- OUTSIDE RECORDS SUMMARY | 2022-11-29 13:32 | XMS ---
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 - Patient with suicidal and/or homicidal ideations eloped. - Patient eloped with IV in place. Details: PATIENT LWBS CRITERIA MET - [facility] CARE PROVIDERS -[place]- Dentist: Environmental Health Technologist [facility] PHONE: [phone] Giancarlo Quarles Community Health Worker 11/16/2019-[facility] PHONE: [phone] Almaz Zurita Nurse Practitioner: Family Current PHONE: [phone] ISABELA HIGUERA [facility] Medicine: Adult Medicine 01/20/2020-Current PHONE: [phone] Care Guidelines exist for the following facilities: [facility] [place] ( 12/11/2019 ) Care History Medical/Surgical 11/18/2020 [facility] Care Recommendation: - PLEASE REVIEW PDMP - [place] - USE EXTREME CAUTION IN GIVING NARCOTICS. - Avoid Discharge Narcotic prescriptions if at all possible. Physician discretion. 11/18/2020 [facility] - CHW NOTIFIED [facility] - CASE MANAGEMENT TEAM- PATIENT WOULD BENEFIT FROM MEDICAL CASE MANAGEMENT AND [facility] - [facility] CASE MANAGEMENT WILL BE IN CONTACT WITH PATIENT. 11/17/2020 [facility] - PATIENT WAS SEEN THE OTHER DAY AT THE PCP OFFICE- PATIENT WAS UPSET WITH PROVIDER AND STATED SHE WANTED TO FIND ANOTHER PCP- - PATIENT HAS AN APT TODAY 11/17/20 WITH PCP LAINE BRANCH E.D. VISIT COUNT (12 MO.) 6 [facility]. TOTAL 6 NOTE: Visits indicate total known visits. ED/UCC VISIT TRACKING (12 MO.) 11/29/2022 13:17 [facility] [place] TYPE: Emergency COMPLAINT: - VOMITING, POSS MEDICATION SIDE EFFECT 08/12/2022 21:30 [facility] [place] TYPE: Emergency COMPLAINT: - COVID ISSUES DIAGNOSES: - Adverse effect of other viral vaccines, initial encounter - Allergy status to narcotic agent - Allergy status to other drugs, medicaments and biological substances - Localized skin eruption due to drugs and medicaments taken internally - Latex allergy status - Nicotine dependence, unspecified, uncomplicated - Other complications following immunization, not elsewhere classified, initial encounter - Other prison (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 - Migraine, unspecified, not intractable, without status migrainosus - Paresthesia of skin - Allergy status to sulfonamides - Post-traumatic stress disorder, unspecified - Rash and other nonspecific skin eruption [facility] [place] [facility] COMPLAINT: - JOINT PAIN, FATIGUE, HEADACHE, R SHOULDER PAIN DIAGNOSES: - Nicotine dependence, unspecified, uncomplicated - Other 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 technician (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 - Pain in right shoulder - Latex allergy status - Migraine, unspecified, not intractable, without status migrainosus - Allergy status to other drugs, medicaments and biological substances - Allergy status to other antibiotic agents - Post-traumatic stress disorder, unspecified - Allergy status to narcotic agent 04/25/2022 18:12 [facility] [place] TYPE: Emergency COMPLAINT: - WEAKNESS DIAGNOSES: - Nicotine dependence, unspecified, uncomplicated - Dizziness and giddiness - Allergy status to other drugs, medicaments and biological substances - Latex allergy status - Other termite technician (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 - Allergy status to narcotic agent - Shortness of breath - Allergy status to other antibiotic agents - Anesthesia of skin - Palpitations - Allergy status to sulfonamides 03/15/2022 16:44 [facility] [place] TYPE: Emergency COMPLAINT: - ABDOMINAL PAIN 02/17/2022 21:32 [facility] [place] TYPE: Emergency COMPLAINT: - DRUG WITHDRAWLS DIAGNOSES: - Acute gastritis without bleeding - Allergy status to sulfonamides - Nicotine dependence, unspecified, uncomplicated - Nausea with vomiting, unspecified - Post-traumatic stress disorder, unspecified - Other prison (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 - Migraine, unspecified, not intractable, without status migrainosus - Allergy status to other drugs, medicaments and biological substances - Allergy status to narcotic agent - Latex allergy status INPATIENT VISIT TRACKING (12 MO.) No inpatient visits to display in this time frame [email or web address]
[2022-11-29] MEDS ORDERED: ARIPIPRAZOLE2 MG PO (15:07)
[2022-11-29] MEDS ORDERED: MEDICAL MARIJUANA (15:10)
[2022-11-29] MEDS ORDERED: CLONAZEPAM1 MG PO (15:55)
[2022-11-29] MEDS ORDERED: PROMETHAZINE HC25 M1 PO (16:31)
== END 2022-11-29 18:00 | disposition home or self-care (01) ==
LOC: ED 13:16
DX: E86.0 Dehydration (principal); T43.595A Adverse effect of other antipsychotics and neuroleptics, initial encounter; G43.909 Migraine, unspecified, not intractable, without status migrainosus; F17.200 Nicotine dependence, unspecified, uncomplicated; Z91.040 Latex allergy status; Z88.2 Allergy status to sulfonamides; Z88.8 Allergy status to other drugs, medicaments and biological substances; Z88.5 Allergy status to narcotic agent; Z79.899 Other long term (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
CPT/HCPCS: 36415; 80053; 81003; 83690; 84703; 85025; 96361; 96374; 96375; 99284-25; J1200; J2060; J2765; J7030

== ENCOUNTER 2023-04-24 05:50 | Emergency (ER) | payer OTHER ==
[~2023-04-24] VITALS: Ht 152.4 cm; Wt 62.7 kg
--- OUTSIDE RECORDS SUMMARY | ~2023-04-24 | XMS | Continuity of Care Document ---
Demographics + + + | Address | [address] | | | [place] [address] | + + + | Preferred Language | Unknown | + + + | Marital Status | | + + + | Roman Catholic Affiliation | Unknown | + + + | Race | White | + + + | Ethnic Group | Not or | + + + Author + + + | Author | [facility] | + + + | Organization | [facility] | + + + | Address | [address] | | | [place] [address] | + + + | Phone | | + + + Care Team Providers + + + + | Care Planning Technician Name | Role | Phone | [...] (no severity) | | | | [facility] | | | [facility] | [facility] | | | + + + + + + | (no date) | TRAMADOL | [facility] | (no reaction) | (no severity) | | | | [facility] | | | [facility] | | [facility] | | | + + + + + + | (no date) | | [facility] | (no reaction) | (no severity) | | | SULFAMETHOXAZOL | [facility] | | | E[facility]TRIM[facility]OPR[facility] | [facility] | | | [facility] | | Professional | | | | | | Center | | | + + + + + + | (no date) | CODEINE | [facility] | (no reaction) | (no severity) | | | | [facility] | | [facility] | | [facility] | | | + + + + + + | (no date) | TRAMADOL | [facility] | (no reaction) | (no severity) | | | | [facility] | [facility] | [facility] | | | + + + + + + | (no date) | | [facility] | (no reaction) | (no severity) | | | SULFAMETHOXAZOL | [facility] | | | [facility]TRIMETHOP[facility] | | | | | | Center | | | + + + + + + | (no date) | | [facility] | (no reaction) | (no severity) | | | SULFAMETHOXAZOL | [facility] | | | | [facility]TRIMETHOPR[facility] | | [facility] | | [facility] | | | + + + + + + | (no date) | | [facility] | (no reaction) | (no severity) | | | SULFAMETHOXAZOL | [facility] | | | | | [facility]-TRIMETHOPRIM | [facility] | | | | | | Center | | | + + + + + + | (no date) | | [facility] | (no reaction) | (no severity) | | | SULFAMETHOXAZOL | [facility] | | | | | [facility]TRIMETHOP[facility] | [facility] | | [facility] | | | | | | Center | | | + + + + + + | (no date) | CODEINE | [facility] | (no reaction) | (no severity) | | | | [facility] | | | | | | [facility] | | | + + + + + + | (no date) | CODEINE | [facility] | (no reaction) | (no severity) | | | | [facility] | [facility] | | | | | | [facility] | | | + + + + + + | (no date) | | [facility] | (no reaction) | (no severity) | | | SULFAMETHOXAZOL | [facility] | | | | [facility]TRIM[facility]OP[facility] | [facility] | | | [facility] | | | + + + + + + | (no date) | | [facility] | (no reaction) | (no severity) | | | SULFAMETHOXAZOL | [facility] | [facility] | | | [facility]TRIM[facility] | | | | | | Center | | | + + + + + + | (no date) | ONDANSETRON | [facility] | (no reaction) | (no severity) | | | | [facility] | | | | | | [facility] | | | + + + + + + | (no date) | BUPROPION | [facility] | (no reaction) | (no severity) | | | | [facility] | | | | | | Center | | | + + + + + + | (no date) | ONDANSETRON | [facility] | (no reaction) | (no severity) | | | | [facility] | [facility] | | | | | | [facility] | | | + + + + + + | (no date) | | [facility] | (no reaction) | (no severity) | | | SULFAMETHOXAZOL | [facility] | | | | | E-TRIMETHOPRIM | [facility] | | [facility] | | | [facility] | | | + + + + + + | (no date) | | [facility] | (no reaction) | (no severity) | | | SULFAMETHOXAZOL | [facility] | | | | | [facility]TRIM[facility] | [facility] | | | | | | [facility] | | | + + + + + + | (no date) | TRAMADOL | [facility] | (no reaction) | (no severity) | | | | [facility] | | | | [facility] | | | + + + + + + | (no date) | | [facility] | (no reaction) | (no severity) | | | SULFAMETHOXAZOL | [facility] | | | | | [facility]TRIMETHOPR[facility] | | | | | | Center | | | + + + + + + | (no date) | CODEINE | [facility] | (no reaction) | (no severity) | | | | [facility] | | | | | [facility] | | | + + + + + + | (no date) | CODEINE | [facility] | (no reaction) | (no severity) | | | | [facility] | [facility] | | | [facility] | | | + + + + + + | (no date) | CODEINE | [facility] | (no reaction) | (no severity) | | | | [facility] | | | | | [facility] | | | + + + + + + | (no date) | TRAMADOL | [facility] | (no reaction) | (no severity) | | | | [facility] | | | | | | [facility] | | | + + + + + + | (no date) | ONDANSETRON | [facility] | (no reaction) | (no severity) | | | | [facility] | | | | | | [facility] | | | + + + + + + | (no date) | CODEINE | [facility] | (no reaction) | (no severity) | | | | [facility] | | | | | | [facility] | | | + + + + + + | (no date) | CODEINE | [facility] | (no reaction) | (no severity) | | | | [facility] | | | | | | [facility] | | | + + + + + + | (no date) | Unknown | [facility] | (no reaction) | (no severity) | | | | [facility] | | | [facility] | | | + + + + + + | (no date) | | [facility] | (no reaction) | (no severity) | | | SULFAMETHOXAZOL | [facility] | | | | | E-TRIMETHOPRIM | [facility] | | [facility] | | | | | | Center | | | + + + + + + | (no date) | TRAMADOL | [facility] | (no reaction) | (no severity) | | | | [facility] [place] [facility] | | | | | | [facility] | | | + + + + + + | (no date) | | [facility] | (no reaction) | (no severity) | | | SULFAMETHOXAZOL | [facility] | | | | | [facility]TRIM[facility] | | [facility] | | | Center | | | + + + + + + | (no date) | Nausea | [facility] | (no reaction) | (no severity) | | | | [facility] [place] [facility] | | | | | | [facility] | | | + + + + + + | (no date) | BUPROPION | [facility] | (no reaction) | (no severity) | | | | [facility] | | [facility] | | | [facility] | | | + + + + + + | (no date) | Anxiety | [facility] | (no reaction) | (no severity) | | | | [facility] | | | | | [facility] | | | + + + + + + | (no date) | ONDANSETRON | [facility] | (no reaction) | (no severity) | | | | [facility] [place] [facility] | | | | | | [facility] | | | + + + + + + | (no date) | | [facility] | (no reaction) | (no severity) | | | SULFAMETHOXAZOL | [facility] | | | | | [facility]TRIM[facility]OP[facility] | [facility] | [facility] | | | | [facility] | | | + + + + + + | (no date) | | [facility] | (no reaction) | (no severity) | | | SULFAMETHOXAZOL | [facility] | | | | | [facility]TRIM[facility]OP[facility] | | | | | | Center | | | + + + + + + | (no date) | TRAMADOL | [facility] | (no reaction) | (no severity) | | | | [facility] | | | | | | [facility] | | | + + + + + + | (no date) | TRAMADOL | [facility] | (no reaction) | (no severity) | | | | [facility] [place] [facility] | | | | | | [facility] | | | + + + + + + | (no date) | CODEINE | [facility] | (no reaction) | (no severity) | | | | [facility] [place] [facility] | | | | | | [facility] | | | + + + + + + | (no date) | BUPROPION | [facility] | (no reaction) | (no severity) | | | | [facility] | | | | | | [facility] | | | + + + + + + | (no date) | ONDANSETRON | [facility] | (no reaction) | (no severity) | | | | [facility] | | | | | | [facility] [...] + | (no date) | BUPROPION | [facility] | (no reaction) | (no severity) | [facility] | | | + + + + + + | (no date) | CODEINE | [facility] | (no reaction) | (no severity) | | [facility] | | | + + + + + + | (no date) | ONDANSETRON | [facility] | (no reaction) | (no severity) | | [facility] | | | + + + + + + | (no date) | | [facility] | (no reaction) | (no severity) | | | SULFAMETHOXAZOL | [facility] | | | | | E[facility]TRIM[facility]OPRIM | Hospital | | | + + + + + + | (no date) | TRAMADOL | [facility] | (no reaction) | (no severity) | | | | [facility] | | | | | | Hospital | | | + + + + + + | (no date) | CODEINE | [facility] | (no reaction) | (no severity) | | | | [facility] | | | | | | Crest [...] | desvenlafaxine succinate | [facility] | | | 25 mg 24hr extended release | [facility] | | | oral tablet | | + + + + | 2022-10-11 00:00 | acycycloguanosine 400 mg | [facility] | | | oral tablet | [facility] | + + + + | 2018-10-04 00:00 | baclofen 20 mg oral tablet | [facility] | | | | [facility] | + + + + | 2023-01-25 00:00 | clonazepam 0.5 mg oral | [facility] | | | tablet | [facility] | + + + + | 2022-11-02 00:00 | clonazepam 1 mg oral | [facility] | | | tablet | [facility] | + + + + | 2023-02-02 00:00 | naproxen 250 mg oral | [facility] | | | tablet | [facility] | + + + + | 2023-02-02 00:00 | spironolactone 100 mg oral | [facility] | | | tablet | [facility] | + + + + | 2022-10-10 00:00 | lamotrigine 150 mg oral | [facility] | | | tablet | [facility] | + + + + | 2018-03-05 00:00 | [id number] 200 actuat | [facility] | | | albuterol 0.09 mg/actuat | [facility] | | | metered dose inhaler | | + + + + | 2021-05-04 00:00 | gabapentin 800 mg oral | [facility] | | | tablet | [facility] | + + + + | 2023-01-04 00:00 | sertraline (as sertraline | [facility] | | | hcl) 100 mg oral tablet | [facility] | + + + + | 2019-12-03 00:00 | sumatriptan 100 mg | [facility] | | | (sumatriptan succinate 140 | [facility] | | | mg) oral tablet | | + + + + | 2023-01-20 00:00 | buprenorphine 8 mg | [facility] | | | sublingual tablet | [facility] | + + + + | 2022-10-26 00:00 | trazodone hydrochloride 50 | [facility] | | | mg oral tablet | [facility] | + + + + | 2021-05-13 00:00 | guanfacine 4 mg (as | [facility] | | | guanfacine hydrochloride | [facility] | | | 4.56 mg) 24 hr extended | | | | release oral tablet | | + + + + | 2023-01-18 00:00 | promethazine hydrochloride | [facility] | | | 25 mg oral tablet | [facility] | + + + + Problems + + + + | date | description | facility | + + + + | 2021-01-06 00:00 | thoracic outlet syndrome | [facility] | | | (disorder) | [facility] | + + + + | 2021-01-06 00:00 | TOS (thoracic outlet | [facility] | | | syndrome) | [facility] | + + + + | 2021-03-02 14:17:27 | Other chronic pain | [facility] | | | | [facility] | + + + + | 2021-03-02 14:17:27 | Pain in right shoulder | [facility] | | | | [facility] | + + + + | 2021-03-02 14:17:27 | Pain in left shoulder | [facility] | | | | [facility] | + + + + | 2021-03-02 14:17:27 | Cervicalgia | [facility] | | | | [facility] | + + + + | 2021-03-02 14:17:27 | Paresthesia of skin | [facility] | | | | [facility] | + + + + | 2021-05-28 15:43:53 | Other lesions of median | [facility] | | | nerve, unspecified upper | [facility] | | | limb | | + + + + | 2021-05-28 15:43:53 | Lesion of ulnar nerve, | [facility]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 | [facility] | + + + + | 2021-05-28 15:43:53 | Other muscle spasm | [facility] | | | | [facility] | + + + + | 2022-02-17 21:32 | Acute gastritis without | [facility] | | | bleeding [facility] | + + + + | 2022-02-17 21:32 | Nausea with vomiting, | [facility] | | | unspecified | [facility] | + + + + | 2022-08-09 09:32 | ENCNTR FOR BINGO CLERK EXAM | [facility] | | | (GENERAL) [...] INTRACTABLE, WITHOUT STATUS | | | | [place] | | + + + + | 2022-11-29 13:17 | VOMITING, UNSPECIFIED | [facility] | + + + + | 2022-11-29 13:17 | ADVERSE EFFECT OF OTH | [facility] | | | ANTIPSYCHOTICS AND | | | | NEUROLEPT | | + + + + | 2022-11-29 13:17 | OTHER NURSING HOME (CURRENT) | [facility] | | | DRUG [...] + + | 2023-02-21 13:50 | OTHER GRUBBER (CURRENT) | [facility] | | | DRUG [...] + + | 2023-03-21 18:24 | OTHER NURSING HOME (CURRENT) | [facility] | | | DRUG [...] + + | 2023-03-25 08:05 | OTHER NURSING HOME (CURRENT) | [facility] | | | DRUG [...] 2022-11-07 00:00 | Ex-smoker | [facility] | | | | [facility] | + + + + | 2023-02-02 00:00 | Current smoker | [facility] | | | | [facility] | + + + + [...]
--- OUTSIDE RECORDS SUMMARY | ~2023-04-24 | XMS | Continuity of Care Document ---
Demographics + + + | Address | [address] | | | [place] [address] | + + + | Preferred Language | Unknown | + + + | Marital Status | | + + + | Cheondoism Affiliation | Unknown | + + + | Race | White | + + + | Ethnic Group | Not or | + + + Author + + + | Author | [facility] | + + + | Organization | [facility] | + + + | Address | [address] | | | [place] [address] | + + + | Phone | | + + + Care Team Providers + + + + | Care Hot Dip Tinning Supervisor Name | Role | Phone | [...] (no severity) | | | | [facility] [place] [facility] | [facility] | | | | | | Professional | | | | | | Center | | | + + + + + + | (no date) | TRAMADOL | [facility] | (no reaction) | (no severity) | | | | [facility] [place] [facility] | | | [facility] | | Professional | | | | | | Center | | | + + + + + + | (no date) | | [facility] | (no reaction) | (no severity) | | | SULFAMETHOXAZOL | [facility] [place] | | | | | E-TRIMETHOPRIM | Crest | | | | | | Professional | | | | | | Center | | | + + + + + + | (no date) | CODEINE | [facility] | (no reaction) | (no severity) | | | | [facility] [place] [facility] | | | [facility] | | Professional | | | | | | Center | | | + + + + + + | (no date) | TRAMADOL | [facility] | (no reaction) | (no severity) | | | | [facility] [place] [facility] | | | [facility] | Professional | | | | | | Center | | | + + + + + + | (no date) | | [facility] | (no reaction) | (no severity) | | | SULFAMETHOXAZOL | [facility] [place] | | | | | E-TRIMETHOPRIM | [facility] | | | | | | Professional | | | | | | Center | | | + + + + + + | (no date) | | [facility] | (no reaction) | (no severity) | | | SULFAMETHOXAZOL | [facility] [place] | | | | | E-TRIMETHOPRIM | [facility] | | | | | | Professional | | | | | | Center | | | + + + + + + | (no date) | | [facility] | (no reaction) | (no severity) | | | SULFAMETHOXAZOL | [facility] [place] | | | | | E-TRIMETHOPRIM | [facility] | | | | | | Professional | | | | | | Center | | | + + + + + + | (no date) | | [facility] | (no reaction) | (no severity) | | | SULFAMETHOXAZOL | [facility] [place] | | | | | E-TRIMETHOPRIM | C[facility] | | | | | | Professional | | | | | | Center | | | + + + + + + | (no date) | CODEINE | [facility] | (no reaction) | (no severity) | | | | [facility] [place] | | | | | [facility] | | | | | | Professional | | | | | | Center | | | + + + + + + | (no date) | CODEINE | [facility] | (no reaction) | (no severity) | | | | [facility] [place] [facility] | | [facility] | | | [facility] | | Professional | | | | | | Center | | | + + + + + + | (no date) | | [facility] | (no reaction) | (no severity) | | | SULFAMETHOXAZOL | [facility] [place] | | | | | E-TRIMETHOPRIM | [facility] | | | | | | Professional | | | | | | Center | | | + + + + + + | (no date) | | [facility] | (no reaction) | (no severity) | | | SULFAMETHOXAZOL | [facility] [place] | | | | | E-TRIMETHOPRIM | [facility] | | | | | | Professional | | | | | | Center | | | + + + + + + | (no date) | ONDANSETRON | [facility] | (no reaction) | (no severity) | | | | at [place] | | | | [facility] | | | | | | Professional | | | | | | Center | | | + + + + + + | (no date) | BUPROPION | [facility] | (no reaction) | (no severity) | | | | [facility] [place] [facility] | | | [facility] | | | [facility] | | Professional | | | | | | Center | | | + + + + + + | (no date) | ONDANSETRON | [facility] | (no reaction) | (no severity) | | | | [facility] [place] | | | | | [facility] | | | | | | Professional | | | | | | Center | | | + + + + + + | (no date) | | [facility] | (no reaction) | (no severity) | | | SULFAMETHOXAZOL | [facility] [place] | | | | | E-TRIMETHOPRIM | [facility] | | | | | | Professional | | | | | | Center | | | + + + + + + | (no date) | | [facility] | (no reaction) | (no severity) | | | SULFAMETHOXAZOL | [facility] [place] | | | | | E-TRIMETHOPRIM | [facility] | | | | | | Professional | | | | | | Center | | | + + + + + + | (no date) | TRAMADOL | [facility] | (no reaction) | (no severity) | | | | [facility] [place] [facility] | | [facility] | | | [facility] | | Professional | | | | | | Center | | | + + + + + + | (no date) | | [facility] | (no reaction) | (no severity) | | | SULFAMETHOXAZOL | [facility] [place] | | | | | E-TRIMETHOPRIM | [facility] | | | | | | Professional | | | | | | Center | | | + + + + + + | (no date) | CODEINE | [facility] | (no reaction) | (no severity) | | | | [facility] [place] [facility] | [facility] | | | [facility] | | Professional | | | | | | Center | | | + + + + + + | (no date) | CODEINE | [facility] | (no reaction) | (no severity) | | | | [facility] [place] [facility] | | | [facility] | | Professional | | | | | | Center | | | + + + + + + | (no date) | CODEINE | [facility] | (no reaction) | (no severity) | | | | [facility] [place] [facility] | | | [facility] | | Professional | | | | | | Center | | | + + + + + + | (no date) | TRAMADOL | [facility] | (no reaction) | (no severity) | | | | [facility] [place] [facility] | | | [facility] | Professional | | | | | | Center | | | + + + + + + | (no date) | ONDANSETRON | [facility] | (no reaction) | (no severity) | | | | at [place] [facility] | | | [facility] | | | [facility] | | Professional | | | | | | Center | | | + + + + + + | (no date) | CODEINE | [facility] | (no reaction) | (no severity) | | | | [facility] [place] | | | | [facility] | | | [facility] | Professional | | | | | | Center | | | + + + + + + | (no date) | CODEINE | [facility] | (no reaction) | (no severity) | | | | [facility] [place] [facility] | | [facility] | [facility] | | | | | | Center | | | + + + + + + | (no date) | Unknown | [facility] | (no reaction) | (no severity) | | | | [facility] [place] [facility] | [facility] | [facility] | [facility] | Professional | | | | | | Center | | | + + + + + + | (no date) | | [facility] | (no reaction) | (no severity) | | | SULFAMETHOXAZOL | [facility] [place] | | | | | E-TRIMETHOPRIM | [facility] | | | | | | Professional | | | | | | Center | | | + + + + + + | (no date) | TRAMADOL | [facility] | (no reaction) | (no severity) | | | | [facility] [place] [facility] | | [facility] | | | [facility] | | Professional | | | | | | Center | | | + + + + + + | (no date) | | [facility] | (no reaction) | (no severity) | | | SULFAMETHOXAZOL | [facility] [place] | | | | | E-TRIMETHOPRIM | [facility] | | | | | | Professional | | | | | | Center | | | + + + + + + | (no date) | Nausea | [facility] | (no reaction) | (no severity) | | | | [facility] [place] [facility] | | [facility] | | | [facility] | Professional | | | | | | Center | | | + + + + + + | (no date) | BUPROPION | [facility] | (no reaction) | (no severity) | | | | [facility] [place] | | | | [facility] | | [facility] | | Professional | | | | | | Center | | | + + + + + + | (no date) | Anxiety | [facility] | (no reaction) | (no severity) | | | | [facility] [place] | | | | [facility] | | [facility] | Professional | | | | | | Center | | | + + + + + + | (no date) | ONDANSETRON | [facility] | (no reaction) | (no severity) | | | | [facility] [place] | | | | [facility] | | [facility] | [facility] | | | | | | Center | | | + + + + + + | (no date) | | [facility] | (no reaction) | (no severity) | | | SULFAMETHOXAZOL | [facility] [place] | | | | | E-TRIMETHOPRIM | [facility] | | | | | | Professional | | | | | | Center | | | + + + + + + | (no date) | | [facility] | (no reaction) | (no severity) | | | SULFAMETHOXAZOL | [facility] [place] | | | | | E-TRIMETHOPR[facility] | [facility] | | | | | | Professional | | | | | | Center | | | + + + + + + | (no date) | TRAMADOL | [facility] | (no reaction) | (no severity) | | | | [facility] [place] | | | | [facility] | | | [facility] | | Professional | | | | | | Center | | | + + + + + + | (no date) | TRAMADOL | [facility] | (no reaction) | (no severity) | | | | [facility] [place] [facility] | | [facility] | | | [facility] | Professional | | | | | | Center | | | + + + + + + | (no date) | CODEINE | [facility] | (no reaction) | (no severity) | | | | [facility] [place] [facility] | | [facility] | | [facility] | | Professional | | | | | | Center | | | + + + + + + | (no date) | BUPROPION | [facility] | (no reaction) | (no severity) | | | | [facility] [place] | | | | | [facility] | | | | | | Professional | | | | | | Center | | | + + + + + + | (no date) | ONDANSETRON | [facility] | (no reaction) | (no severity) | | | | [facility] [place] | | | | | | Crest [...] + | (no date) | BUPROPION | [facility] | (no reaction) | (no severity) | | [facility] | | [facility] | | | + + + + + + | (no date) | CODEINE | [facility] | (no reaction) | (no severity) | | [facility] | | | Hospital | | | + + + + + + | (no date) | ONDANSETRON | [facility] | (no reaction) | (no severity) | | | [facility] | | | | | | Hospital | | | + + + + + + | (no date) | | [facility] | (no reaction) | (no severity) | | | SULFAMETHOXAZOL | [facility] Center | | | | | E-TRIMETHOPRIM | Hospital | | | + + + + + + | (no date) | TRAMADOL | [facility] | (no reaction) | (no severity) | | | | [facility] Center | | | | | | Hospital | | | + + + + + + | (no date) | CODEINE | [facility] | (no reaction) | (no severity) | | | | at [place] | | | | | | Crest [...] | desvenlafaxine succinate | [facility] [place] | | | 25 mg 24hr extended release | [facility] | | | oral tablet | | + + + + | 2022-10-11 00:00 | acycycloguanosine 400 mg | [facility] | | | oral tablet | [facility] | + + + + | 2018-10-04 00:00 | baclofen 20 mg oral tablet | [facility] [place] | | | | [facility] | + + + + | 2023-01-25 00:00 | clonazepam 0.5 mg oral | [facility] [place] | | | tablet | [facility] | + + + + | 2022-11-02 00:00 | clonazepam 1 mg oral | [facility] | | | tablet | [facility] | + + + + | 2023-02-02 00:00 | naproxen 250 mg oral | [facility] | | | tablet | [facility] | + + + + | 2023-02-02 00:00 | spironolactone 100 mg oral | [facility] | | | tablet | [facility] | + + + + | 2022-10-10 00:00 | lamotrigine 150 mg oral | [facility] | | | tablet | [facility] | + + + + | 2018-03-05 00:00 | [id number] 200 actuat | [facility] | | | albuterol 0.09 mg/actuat | [facility] | | | metered dose inhaler | | + + + + | 2021-05-04 00:00 | gabapentin 800 mg oral | [facility] | | | tablet | [facility] | + + + + | 2023-01-04 00:00 | sertraline (as sertraline | [facility] | | | hcl) 100 mg oral tablet | [facility] | + + + + | 2019-12-03 00:00 | sumatriptan 100 mg | [facility] | | | (sumatriptan succinate 140 | [facility] | | | mg) oral tablet | | + + + + | 2023-01-20 00:00 | buprenorphine 8 mg | [facility] | | | sublingual tablet | [facility] | + + + + | 2022-10-26 00:00 | trazodone hydrochloride 50 | [facility] | | | mg oral tablet | [facility] | + + + + | 2021-05-13 00:00 | guanfacine 4 mg (as | [facility] | | | guanfacine hydrochloride | [facility] | | | 4.56 mg) 24 hr extended | | | | release oral tablet | | + + + + | 2023-01-18 00:00 | promethazine hydrochloride | [facility] | | | 25 mg oral tablet | [facility] | + + + + Problems + + + + | date | description | facility | + + + + | 2021-01-06 00:00 | thoracic outlet syndrome | [facility] | | | (disorder) | [facility] | + + + + | 2021-01-06 00:00 | TOS (thoracic outlet | [facility] | | | syndrome) | [facility] | + + + + | 2021-03-02 14:17:27 | Other chronic pain | [facility] | | | | [facility] | + + + + | 2021-03-02 14:17:27 | Pain in right shoulder | [facility] | | | | [facility] | + + + + | 2021-03-02 14:17:27 | Pain in left shoulder | [facility] | | | | [facility] | + + + + | 2021-03-02 14:17:27 | Cervicalgia | [facility] | | | | [facility] | + + + + | 2021-03-02 14:17:27 | Paresthesia of skin | [facility] | | | | [facility] | + + + + | 2021-05-28 15:43:53 | Other lesions of median | [facility] | | | nerve, unspecified upper | [facility] | | | limb | | + + + + | 2021-05-28 15:43:53 | Lesion of ulnar nerve, | [facility]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 | [facility] | + + + + | 2021-05-28 15:43:53 | Other muscle spasm | [facility] | | | | [facility] | + + + + | 2022-02-17 21:32 | Acute gastritis without | [facility] | | | bleeding | [facility] | + + + + | 2022-02-17 21:32 | Nausea with vomiting, | [facility] | | | unspecified | [facility] | + + + + | 2022-08-09 09:32 | ENCNTR FOR MUSIC COMPOSER EXAM | [facility] | | | (GENERAL) [...] INTRACTABLE, WITHOUT STATUS | | | | PA | | + + + + | 2022-11-29 13:17 | VOMITING, UNSPECIFIED | [facility] | + + + + | 2022-11-29 13:17 | ADVERSE EFFECT OF OTH | [facility] | | | ANTIPSYCHOTICS AND | | | | NEUROLEPT | | + + + + | 2022-11-29 13:17 | OTHER FDC (CURRENT) | [facility] | | | DRUG [...] + + | 2023-02-21 13:50 | 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
[~2023-04-24 05:50] MED LIST changes: +ACYCLOVIR400 MG PO; +ARIPIPRAZOLE2 MG PO; +BUPRENORPHINE HC8 MG SL; +CALCIUM500 MG PO; +GUANFACINE HCL E4 MG PO; +MAGNESIUM400 M1 PO; +MEDICAL MARIJUANA; +NITROFURANTOIN100 MG PO; +PROMETHEGAN25 MG PR; +VALIUM2 MG PO
--- OUTSIDE RECORDS SUMMARY | 2023-04-24 05:55 | XMS ---
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 - Patient with suicidal and/or homicidal ideations eloped. - Patient eloped with IV in place. Details: PATIENT LWBS CRITERIA MET - 6 ED Visits in 6 Months - [facility] - 2 Visits in 30 Days CARE PROVIDERS -[place]- Dentist: Pump Station Operator [facility] PHONE: [phone] Giancarlo Quarles Community Health Worker 11/16/2019-[facility] PHONE: [phone] Almaz Zurita-Mickie Nurse Practitioner: Family Current PHONE: [phone] ISABELA HIGUERA [facility] Medicine: Adult Medicine 01/20/2020-Current PHONE: [phone] Care Guidelines exist for the following facilities: [facility] [place] [facility] [place] ( 12/11/2019 ) Care History Medical/Surgical 11/18/2020 [facility] Care Recommendation: - PLEASE REVIEW PDMP - [place] - USE EXTREME CAUTION IN GIVING NARCOTICS. - Avoid Discharge Narcotic prescriptions if at all possible. Physician discretion. 11/18/2020 [facility] - CHW NOTIFIED [facility] - CASE MANAGEMENT TEAM- PATIENT WOULD BENEFIT FROM MEDICAL CASE MANAGEMENT AND [place] - [facility] CASE MANAGEMENT WILL BE IN CONTACT WITH PATIENT. 11/17/2020 [facility] - PATIENT WAS SEEN THE OTHER DAY AT THE PCP OFFICE- PATIENT WAS UPSET WITH PROVIDER AND STATED SHE WANTED TO FIND ANOTHER PCP- - PATIENT HAS AN APT TODAY 11/17/20 WITH PCP LAINE BRANCH E.D. VISIT COUNT (12 MO.) [facility] TOTAL 9 NOTE: Visits indicate total known visits. 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 - Viral infection, unspecified 03/21/2023 18:24 [facility] [place] TYPE: Emergency COMPLAINT: - SKIN PROBLEM DIAGNOSES: - Adverse effect of other specified systemic anti-infectives and antiparasitics, initial encounter - Allergy status to narcotic agent - Allergy status to other drugs, medicaments and biological substances - Allergy status to sulfonamides - Latex allergy status - Nicotine dependence, unspecified, uncomplicated - Other prison (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 - Urinary tract infection, site not specified - Urticaria, unspecified 02/21/2023 13:50 [facility] [place] TYPE: Emergency COMPLAINT: - N/V, BODY PAIN DIAGNOSES: - Allergy status to narcotic agent - Allergy status to other drugs, medicaments and biological substances - Allergy status to sulfonamides - Contact with and (suspected) exposure to COVID-19 - Hypocalcemia - Hypomagnesemia - Latex allergy status - Nausea with vomiting, unspecified - Nicotine dependence, unspecified, uncomplicated - 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 11/29/2022 13:17 [facility] [place] TYPE: Emergency COMPLAINT: - VOMITING, POSS MEDICATION SIDE EFFECT DIAGNOSES: - Adverse effect of other antipsychotics and neuroleptics, initial encounter - Allergy status to narcotic agent - Allergy status to other drugs, medicaments and biological substances - Allergy status to sulfonamides - Dehydration - Latex allergy status - Migraine, unspecified, not intractable, without status migrainosus - Nicotine dependence, unspecified, uncomplicated - 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 - Vomiting, unspecified 08/12/2022 21:30 [facility] [place] TYPE: Emergency COMPLAINT: - COVID ISSUES DIAGNOSES: - Adverse effect of other viral vaccines, initial encounter - Allergy status to narcotic agent - Allergy status to other drugs, medicaments and biological substances - Allergy status to sulfonamides - Latex allergy status - Localized skin eruption due to drugs and medicaments taken internally - Migraine, unspecified, not intractable, without status migrainosus - Nicotine dependence, unspecified, uncomplicated - Other complications following immunization, not elsewhere classified, initial encounter - Other prison (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 - Paresthesia of skin - Post-traumatic stress disorder, unspecified - Rash and other nonspecific skin eruption 07/19/2022 08:56 [facility] [place] TYPE: Emergency COMPLAINT: - JOINT PAIN, FATIGUE, HEADACHE, R SHOULDER PAIN DIAGNOSES: - Allergy status to narcotic agent - Allergy status to other antibiotic agents - Allergy status to other drugs, medicaments and biological substances - Latex allergy status - Migraine, unspecified, not intractable, without status migrainosus - Nicotine dependence, unspecified, uncomplicated - 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 - Pain in right shoulder - Post-traumatic stress disorder, unspecified 04/25/2022 18:12 [facility] [place] TYPE: Emergency COMPLAINT: - WEAKNESS DIAGNOSES: - Allergy status to narcotic agent - Allergy status to other antibiotic agents - Allergy status to other drugs, medicaments and biological substances - Allergy status to sulfonamides - Anesthesia of skin - Dizziness and giddiness - Latex allergy status - Nicotine dependence, unspecified, uncomplicated - Other prison (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 - Palpitations - Shortness of breath INPATIENT VISIT TRACKING (12 MO.) No inpatient visits to display in this time frame [email or web address]
[2023-04-24 06:38] LABS: BASOPHILS 0.7 % (0-2); EOSINOPHILS 0.7 % (0-6); HEMATOCRIT 39.6 % (35.0-50.0); HEMOGLOBIN 13.2 g/dL (12.0-18.0); LYMPHOCYTES 25.1 % (24-44); MCH 32.8 (27-36); MCHC 33.2 g/dl (30-36); MCV 98.8 fl (81-99); MONOCYTES 4.5 % (0-12); PLATELET COUNT 268 K/uL (140-440); RBC 4.01 M/ul (4.3-5.7); RDW 12.8 (10.5-15.0)
[2023-04-24 06:51] LABS: ALBUMIN 3.8 g/dL (3.4-5.0); ALBUMIN/GLOBULIN RATIO 1.06 (1.1-2.4); ANION GAP 12.6 (7-21); BILIRUBIN, TOTAL 0.4 ng/dL (0.2-1.0); BUN/CREATININE RATIO 17.56 (6.0-28.6); CALCIUM 8.7 mg/dL (8.5-10.1); CREATININE, SERUM 0.74 mg/dL (0.55-1.02); MAGNESIUM 1.7 mg/dL (1.8-2.4); POTASSIUM 3.6 mmol/L (3.5-5.1); PROTEIN, TOTAL 7.4 g/dL (6.4-8.2)
[2023-04-24 07:19] VITALS: BP 110/80
== END 2023-04-24 07:20 | disposition home or self-care (01) ==
LOC: ED 05:50
PROVIDERS: Internal Medicine
DX: R20.2 Paresthesia of skin (principal); R11.2 Nausea with vomiting, unspecified; F17.200 Nicotine dependence, unspecified, uncomplicated; Z88.5 Allergy status to narcotic agent; Z88.8 Allergy status to other drugs, medicaments and biological substances; Z88.1 Allergy status to other antibiotic agents; Z91.040 Latex allergy status; Z79.899 Other long term (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
CPT/HCPCS: 36415; 80053; 83735; 85025; J2060; J7121

== ENCOUNTER 2023-05-06 22:08 | Emergency (ER) | payer OTHER ==
[~2023-05-06] VITALS: Ht 152.4 cm; Wt 61.8 kg
--- OUTSIDE RECORDS SUMMARY | ~2023-05-06 | XMS | Continuity of Care Document ---
Demographics + + + | Address | [address] | | | [place] [address] | + + + | Preferred Language | Unknown | + + + | Marital Status | | + + + | Church Affiliation | Unknown | + + + | Race | White | + + + | Ethnic Group | Not or | + + + Author + + + | Author | [facility] | + + + | Organization | [facility] | + + + | Address | [address] | | | [place] [address] | + + + | Phone | | + + + Care Team Providers + + + + | Care Senior Clinician Name | Role | Phone | + + + + Unavailable | Unavailable | + + + + Unavailable | Unavailable | + + + + Unavailable | Unavailable | + + + + Allergies and Intolerances + + + + + + | date | description | facility | reaction | severity | + + + + + + | (no date) | BUPROPION | [facility] | (no reaction) | (no severity) | | | | at [place] | | | | [facility] | | | [facility] | | [facility] | | | | | | Center | | | + + + + + + | (no date) | TRAMADOL | [facility] | (no reaction) | (no severity) | | | | at [place] | | | | | | [facility] | | | | | | Professional | | | | | | Center | | | + + + + + + | (no date) | | [facility] | (no reaction) | (no severity) | | | SULFAMETHOXAZOL | at [place] | | | | | E-TRIMETHOPRIM | Crest | | | | | | Professional | | | | | | Center | | | + + + + + + | (no date) | CODEINE | [facility] | (no reaction) | (no severity) | | | | at [place] | | | | | | C[facility] | | | | | | Professional | | | | | | Center | | | + + + + + + | (no date) | TRAMADOL | [facility] | (no reaction) | (no severity) | | | | at [place] | | | | | | [facility] | | | | | | Professional | | | | | | Center | | | + + + + + + | (no date) | | [facility] | (no reaction) | (no severity) | | | SULFAMETHOXAZOL | at [place] | | | | | E-TRIMETHOPRIM | Crest | | | | | | Professional | | | | | | Center | | | + + + + + + | (no date) | | [facility] | (no reaction) | (no severity) | | | SULFAMETHOXAZOL | at [place] | | | | | E-TRIMETHOPRIM | Crest | | | | | | Professional | | | | | | Center | | | + + + + + + | (no date) | | [facility] | (no reaction) | (no severity) | | | SULFAMETHOXAZOL | at [place] | | | | | E-TRIMETHOPRIM | C[facility] | | | | | | Professional | | | | | | Center | | | + + + + + + | (no date) | | [facility] | (no reaction) | (no severity) | | | SULFAMETHOXAZOL | at [place] | | | | | E-TRIMETHOPRIM | Crest | | | | | | Professional | | | | | | Center | | | + + + + + + | (no date) | CODEINE | [facility] | (no reaction) | (no severity) | | | | at [place] | | | | | | C[facility] | | | | | | Professional | | | | | | Center | | | + + + + + + | (no date) | CODEINE | [facility] | (no reaction) | (no severity) | | | | at [place] | | | | | | [facility] | | | | | | Professional | | | | | | Center | | | + + + + + + | (no date) | | [facility] | (no reaction) | (no severity) | | | SULFAMETHOXAZOL | at [place] | | | | | E-TRIMETHOPRIM | [facility] | | | | | | Professional | | | | | | Center | | | + + + + + + | (no date) | | [facility] | (no reaction) | (no severity) | | | SULFAMETHOXAZOL | at [place] | | | | | E-TRIMETHOPRIM | C[facility] | | | | | | Professional | | | | | | Center | | | + + + + + + | (no date) | ONDANSETRON | [facility] | (no reaction) | (no severity) | | | | at [place] | | | | | | C[facility] | | | | | | Professional | | | | | | Center | | | + + + + + + | (no date) | BUPROPION | [facility] | (no reaction) | (no severity) | | | | at [place] | | | | | | [facility] | | | | | | Professional | | | | | | Center | | | + + + + + + | (no date) | ONDANSETRON | [facility] | (no reaction) | (no severity) | | | | at [place] | | | | | | C[facility] | | | | | | Professional | | | | | | Center | | | + + + + + + | (no date) | | [facility] | (no reaction) | (no severity) | | | SULFAMETHOXAZOL | at [place] | | | | | E-TRIMETHOPRIM | C[facility] | | | | | | Professional | | | | | | Center | | | + + + + + + | (no date) | | [facility] | (no reaction) | (no severity) | | | SULFAMETHOXAZOL | at [place] | | | | | E-TRIMETHOPRIM | Crest | | | | | | Professional | | | | | | Center | | | + + + + + + | (no date) | TRAMADOL | [facility] | (no reaction) | (no severity) | | | | at [place] | | | | | | [facility] | | | | | | Professional | | | | | | Center | | | + + + + + + | (no date) | | [facility] | (no reaction) | (no severity) | | | SULFAMETHOXAZOL | at [place] | | | | | E-TRIMETHOPRIM | C[facility] | | | | | | Professional | | | | | | Center | | | + + + + + + | (no date) | CODEINE | [facility] | (no reaction) | (no severity) | | | | at [place] | | | | | | [facility] | | | | | | Professional | | | | | | Center | | | + + + + + + | (no date) | CODEINE | [facility] | (no reaction) | (no severity) | | | | at [place] | | | | | | [facility] | | | | | | Professional | | | | | | Center | | | + + + + + + | (no date) | CODEINE | [facility] | (no reaction) | (no severity) | | | | at [place] | | | | | | [facility] | | | | | | Professional | | | | | | Center | | | + + + + + + | (no date) | TRAMADOL | [facility] | (no reaction) | (no severity) | | | | at [place] | | | | | | [facility] | | | | | | Professional | | | | | | Center | | | + + + + + + | (no date) | ONDANSETRON | [facility] | (no reaction) | (no severity) | | | | at [place] | | | | | | [facility] | | | | | | Professional | | | | | | Center | | | + + + + + + | (no date) | CODEINE | [facility] | (no reaction) | (no severity) | | | | at [place] | | | | | | [facility] | | | | | | Professional | | | | | | Center | | | + + + + + + | (no date) | CODEINE | [facility] | (no reaction) | (no severity) | | | | at [place] | | | | | | [facility] | | | | | | Professional | | | | | | Center | | | + + + + + + | (no date) | Unknown | [facility] | (no reaction) | (no severity) | | | | at [place] | | | | | | [facility] | | | | | | Professional | | | | | | Center | | | + + + + + + | (no date) | | [facility] | (no reaction) | (no severity) | | | SULFAMETHOXAZOL | at [place] | | | | | E-TRIMETHOPRIM | Crest | | | | | | Professional | | | | | | Center | | | + + + + + + | (no date) | TRAMADOL | [facility] | (no reaction) | (no severity) | | | | at [place] | | | | | | [facility] | | | | | | Professional | | | | | | Center | | | + + + + + + | (no date) | | [facility] | (no reaction) | (no severity) | | | SULFAMETHOXAZOL | at [place] | | | | | E-TRIMETHOPRIM | [facility] | | | | | | Professional | [facility] | | | | Center | | | + + + + + + | (no date) | Nausea | [facility] | (no reaction) | (no severity) | | | | at [place] | | | | | | [facility] | | [facility] | | Professional | | | | | | Center | | | + + + + + + | (no date) | BUPROPION | [facility] | (no reaction) | (no severity) | | | | at [place] | | | | | | [facility] | | | | | | Professional | | | | | | Center | | | + + + + + + | (no date) | Anxiety | [facility] | (no reaction) | (no severity) | | | | at [place] | | | | | | [facility] | | | | | | Professional | | | | | | Center | | | + + + + + + | (no date) | ONDANSETRON | [facility] | (no reaction) | (no severity) | | | | at [place] | | | | | | [facility] | | | | | | Professional | | | | | | Center | | | + + + + + + | (no date) | | [facility] | (no reaction) | (no severity) | | | SULFAMETHOXAZOL | at [place] | | | | | E-TRIMETHOPRIM | C[facility] | | | | | | Professional | | | | | | Center | | | + + + + + + | (no date) | | [facility] | (no reaction) | (no severity) | | | SULFAMETHOXAZOL | at [place] | | | | | [facility]TRIMETHOP[facility] | C[facility] | | | | | | Professional | | | | | | Center | | | + + + + + + | (no date) | TRAMADOL | [facility] | (no reaction) | (no severity) | | | | at [place] | | | | | | [facility] | | | | | | Professional | | | | | | Center | | | + + + + + + | (no date) | TRAMADOL | [facility] | (no reaction) | (no severity) | | | | at [place] | | | | | | [facility] | | | | | | Professional | | | | | | Center | | | + + + + + + | (no date) | CODEINE | [facility] | (no reaction) | (no severity) | | | | at [place] | | | | | | [facility] | | [facility] | | | Professional | | | | | | Center | | | + + + + + + | (no date) | BUPROPION | [facility] | (no reaction) | (no severity) | | | | at [place] | | | | | | [facility] | | [facility] | [facility] | | | | | | Center | | | + + + + + + | (no date) | ONDANSETRON | [facility] | (no reaction) | (no severity) | | | | at [place] | | | | | | [facility] | | | | | | Professional | | | | | | Center | | | + + + + + + | (no date) | Sulfa | [facility] | (no reaction) | (no severity) | | | (Sulfonamide | | | | | | Antibiotics) | | | | + + + + + + | (no date) | codeine | [facility] | (no reaction) | (no severity) | + + + + + + | (no date) | | [facility] | (no reaction) | (no severity) | | | sulfamethoxazol | | | | | | e | | | | + + + + + + | (no date) | nitrofurantoin | [facility] | (no reaction) | (no severity) | | | | | | | + + + + + + | (no date) | trimethoprim | [facility] | (no reaction) | (no severity) | + + + + + + | (no date) | tramadol | [facility] | (no reaction) | (no severity) | + + + + + + | (no date) | bupropion | [facility] | (no reaction) | (no severity) | + + + + + + | (no date) | ondansetron | [facility] | (no reaction) | (no severity) | + + + + + + | (no date) | latex | [facility] | (no reaction) | (no severity) | + + + + + + | (no date) | BUPROPION | [facility] | (no reaction) | (no severity) | | [facility] | | | + + + + + + | (no date) | CODEINE | [facility] | (no reaction) | (no severity) | | | | [facility] | | | | | | Hospital | | | + + + + + + | (no date) | ONDANSETRON | [facility] | (no reaction) | (no severity) | | | | [facility] | | | | | | Hospital | | | + + + + + + | (no date) | | [facility] | (no reaction) | (no severity) | | | SULFAMETHOXAZOL | Medical Center | | | | | E-TRIMETHOPRIM | Hospital | | | + + + + + + | (no date) | TRAMADOL | [facility] | (no reaction) | (no severity) | | | | [facility] Center | | | | | | Hospital | | | + + + + + + | (no date) | CODEINE | [facility] | (no reaction) | (no severity) | | | | at [place] | | | | | | [facility] | | | | | | Professional | | | | | | Center | | | + + + + + + Encounters No information. Functional Status No information. Immunizations No information. Medications + + + + | date | description | facility | + + + + | 2019-11-16 00:00 | desvenlafaxine succinate | [facility] [place] | | | 25 mg 24hr extended release | [facility] | | | oral tablet | | + + + + | 2022-10-11 00:00 | acycycloguanosine 400 mg | [facility] | | | oral tablet | [facility] | + + + + | 2018-10-04 00:00 | baclofen 20 mg oral tablet | [facility] [place] | | | | [facility] | + + + + | 2023-01-25 00:00 | clonazepam 0.5 mg oral | [facility] [place] | | | tablet | [facility] | + + + + | 2022-11-02 00:00 | clonazepam 1 mg oral | [facility] | | | tablet | [facility] | + + + + | 2023-02-02 00:00 | naproxen 250 mg oral | [facility] | | | tablet | [facility] | + + + + | 2023-02-02 00:00 | spironolactone 100 mg oral | [facility] | | | tablet | [facility] | + + + + | 2022-10-10 00:00 | lamotrigine 150 mg oral | [facility] | | | tablet | [facility] | + + + + | 2018-03-05 00:00 | [id number] 200 actuat | [facility] | | | albuterol 0.09 mg/actuat | [facility] | | | metered dose inhaler | | + + + + | 2021-05-04 00:00 | gabapentin 800 mg oral | [facility] | | | tablet | [facility] | + + + + | 2023-01-04 00:00 | sertraline (as sertraline | [facility] | | | hcl) 100 mg oral tablet | [facility] | + + + + | 2019-12-03 00:00 | sumatriptan 100 mg | [facility] | | | (sumatriptan succinate 140 | [facility] | | | mg) oral tablet | | + + + + | 2023-01-20 00:00 | buprenorphine 8 mg | [facility] | | | sublingual tablet | [facility] | + + + + | 2022-10-26 00:00 | trazodone hydrochloride 50 | [facility] | | | mg oral tablet | [facility] | + + + + | 2021-05-13 00:00 | guanfacine 4 mg (as | [facility] | | | guanfacine hydrochloride | [facility] | | | 4.56 mg) 24 hr extended | | | | release oral tablet | | + + + + | 2023-01-18 00:00 | promethazine hydrochloride | [facility] | | | 25 mg oral tablet | [facility] | + + + + Problems + + + + | date | description | facility | + + + + | 2021-01-06 00:00 | thoracic outlet syndrome | [facility] | | | (disorder) | [facility] | + + + + | 2021-01-06 00:00 | TOS (thoracic outlet | [facility] | | | syndrome) | [facility] | + + + + | 2021-03-02 14:17:27 | Other chronic pain | [facility] | | | | [facility] | + + + + | 2021-03-02 14:17:27 | Pain in right shoulder | [facility] | | | | [facility] | + + + + | 2021-03-02 14:17:27 | Pain in left shoulder | [facility] | | | | [facility] | + + + + | 2021-03-02 14:17:27 | Cervicalgia | [facility] | | | | [facility] | + + + + | 2021-03-02 14:17:27 | Paresthesia of skin | [facility] | | | | [facility] | + + + + | 2021-05-28 15:43:53 | Other lesions of median | [facility] | | | nerve, unspecified upper | [facility] | | | limb | | + + + + | 2021-05-28 15:43:53 | Lesion of ulnar nerve, | [facility]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 | [facility] | + + + + | 2021-05-28 15:43:53 | Other muscle spasm | [facility] | | | | [facility] | + + + + | 2022-02-17 21:32 | Acute gastritis without | [facility] | | | bleeding | [facility] | + + + + | 2022-02-17 21:32 | Nausea with vomiting, | [facility] | | | unspecified | [facility] | + + + + | 2022-08-09 09:32 | ENCNTR FOR SCREEN AND CYCLONE REPAIRER EXAM | [facility] | | | (GENERAL) (ROUTINE) | | + + + + | 2022-08-09 09:32 | ENCNTR SCREEN MAMMOGRAM | [facility] | | | FOR MALIGNANT NEOPLASM OF | | | | BREAST | | + + + + | 2022-11-29 13:17 | DEHYDRATION | [facility] | + + + + | 2022-11-29 13:17 | NICOTINE DEPENDENCE, | [facility] | | | UNSPECIFIED, UNCOMPLICATED | | + + + + | 2022-11-29 13:17 | MIGRAINE, UNSP, NOT | [facility] | | | INTRACTABLE, WITHOUT STATUS | | | | NE | | + + + + | 2022-11-29 13:17 | VOMITING, UNSPECIFIED | [facility] | + + + + | 2022-11-29 13:17 | ADVERSE EFFECT OF OTH | [facility] | | | ANTIPSYCHOTICS AND | | | | NEUROLEPT | | + + + + | 2022-11-29 13:17 | OTHER SENIOR CARE (CURRENT) | [facility] | | | DRUG THERAPY | | + + + + | 2022-11-29 13:17 | ALLERGY STATUS TO | [facility] | | | SULFONAMIDES STATUS | | + + + + | 2022-11-29 13:17 | ALLERGY STATUS TO NARCOTIC | [facility] | | | AGENT STATUS | | + + + + | 2022-11-29 13:17 | ALLERGY STATUS TO OTH | [facility] | | | DRUG/MEDS/BIOL SUBST STATUS | | | | | | + + + + | 2022-11-29 13:17 | LATEX ALLERGY STATUS | [facility] | + + + + | 2023-01-06 19:30 | SLEEP APNEA, UNSPECIFIED | [facility] | + + + + | 2023-01-17 13:48 | OTHER SPECIFIED | [facility] | | | EXTRAPYRAMIDAL AND MOVEMENT | | | | DISORD | | + + + + | 2023-01-17 13:48 | OTHER CHRONIC PAIN | [facility] | + + + + | 2023-01-17 13:48 | PAIN IN THORACIC SPINE | [facility] | + + + + | 2023-02-08 09:00 | OTHER SPECIFIED | [facility] | | | EXTRAPYRAMIDAL AND MOVEMENT | | | | DISORD | | + + + + | 2023-02-08 09:00 | OTHER CHRONIC PAIN | [facility] | + + + + | 2023-02-08 09:00 | PAIN IN THORACIC SPINE | [facility] | + + + + | 2023-02-14 13:16 | OTHER CHRONIC PAIN | [facility] | + + + + | 2023-02-14 13:16 | OTHER INTERVERTEBRAL DISC | [facility] | | | DEGENERATION, LUMBAR REG | | + + + + | 2023-02-14 13:16 | LOW BACK PAIN, UNSPECIFIED | [facility] | | | | | + + + + | 2023-02-21 13:50 | HYPOMAGNESEMIA | [facility] | + + + + | 2023-02-21 13:50 | HYPOCALCEMIA | [facility] | + + + + | 2023-02-21 13:50 | NICOTINE DEPENDENCE, | [facility] | | | UNSPECIFIED, UNCOMPLICATED | | + + + + | 2023-02-21 13:50 | NAUSEA WITH VOMITING, | [facility] | | | UNSPECIFIED | | + + + + | 2023-02-21 13:50 | OTHER SENIOR CARE (CURRENT) | [facility] | | | DRUG THERAPY | | + + + + | 2023-02-21 13:50 | ALLERGY STATUS TO | [facility] | | | SULFONAMIDES STATUS | | + + + + | 2023-02-21 13:50 | ALLERGY STATUS TO NARCOTIC | [facility] | | | AGENT STATUS | | + + + + | 2023-02-21 13:50 | ALLERGY STATUS TO OTH | [facility] | | | DRUG/MEDS/BIOL SUBST STATUS | | | | | | + + + + | 2023-02-21 13:50 | LATEX ALLERGY STATUS | [facility] | + + + + | 2023-03-09 16:59 | OPIOID DEPENDENCE, | [facility] | | | UNCOMPLICATED | | + + + + | 2023-03-09 16:59 | RADICULOPATHY, LUMBAR | [facility] | | | REGION | | + + + + | 2023-03-09 16:59 | PAIN IN THORACIC SPINE | [facility] | + + + + | 2023-03-09 17:00 | RADICULOPATHY, LUMBAR | [facility] | | | REGION | | + + + + | 2023-03-13 20:30 | SLEEP APNEA, UNSPECIFIED | [facility] | + + + + | 2023-03-21 18:24 | NICOTINE DEPENDENCE, | [facility] | | | UNSPECIFIED, UNCOMPLICATED | | + + + + | 2023-03-21 18:24 | URTICARIA, UNSPECIFIED | [facility] | + + + + | 2023-03-21 18:24 | URINARY TRACT INFECTION, | [facility] | | | SITE NOT SPECIFIED | | + + + + | 2023-03-21 18:24 | ADVERSE EFFECT OF SYSTEMIC | [facility] | | | ANTI-INFECT/PARASIT, IN | | + + + + | 2023-03-21 18:24 | OTHER SENIOR CARE (CURRENT) | [facility] | | | DRUG THERAPY | | + + + + | 2023-03-21 18:24 | ALLERGY STATUS TO | [facility] | | | SULFONAMIDES STATUS | | + + + + | 2023-03-21 18:24 | ALLERGY STATUS TO NARCOTIC | [facility] | | | AGENT STATUS | | + + + + | 2023-03-21 18:24 | ALLERGY STATUS TO OTH | [facility] | | | DRUG/MEDS/BIOL SUBST STATUS | | | | | | + + + + | 2023-03-21 18:24 | LATEX ALLERGY STATUS | [facility] | + + + + | 2023-03-25 08:05 | VIRAL INFECTION, | [facility] | | | UNSPECIFIED | | + + + + | 2023-03-25 08:05 | NICOTINE DEPENDENCE, | [facility] | | | UNSPECIFIED, UNCOMPLICATED | | + + + + | 2023-03-25 08:05 | FEVER, UNSPECIFIED | [facility] | + + + + | 2023-03-25 08:05 | OTHER MANAGER CAREER (CURRENT) | [facility] | | | DRUG THERAPY | | + + + + | 2023-03-25 08:05 | ALLERGY STATUS TO OTHER | [facility] | | | ANTIBIOTIC AGENTS STATUS | | + + + + | 2023-03-25 08:05 | ALLERGY STATUS TO | [facility] | | | SULFONAMIDES STATUS | | + + + + | 2023-03-25 08:05 | ALLERGY STATUS TO NARCOTIC | [facility] | | | AGENT STATUS | | + + + + | 2023-03-25 08:05 | ALLERGY STATUS TO OTH | [facility] | | | DRUG/MEDS/BIOL SUBST STATUS | | | | | | + + + + | 2023-03-25 08:05 | LATEX ALLERGY STATUS | [facility] | + + + + | 2023-04-04 20:30 | SLEEP APNEA, UNSPECIFIED | [facility] | + + + + | 2023-04-04 20:47 | SLEEP APNEA, UNSPECIFIED | [facility] | + + + + | 2023-04-22 16:07 | NICOTINE DEPENDENCE, | [facility] | | | UNSPECIFIED, UNCOMPLICATED | | + + + + | 2023-04-22 16:07 | BRACHIAL PLEXUS DISORDERS | [facility] | + + + + | 2023-04-22 16:07 | PAIN IN RIGHT SHOULDER | [facility] | + + + + | 2023-04-22 16:07 | OTHER MANAGER CAREER (CURRENT) | [facility] | | | DRUG THERAPY | | + + + + | 2023-04-22 16:07 | ALLERGY STATUS TO OTHER | [facility] | | | ANTIBIOTIC AGENTS STATUS | | + + + + | 2023-04-22 16:07 | ALLERGY STATUS TO | [facility] | | | SULFONAMIDES STATUS | | + + + + | 2023-04-22 16:07 | ALLERGY STATUS TO NARCOTIC | [facility] | | | AGENT STATUS | | + + + + | 2023-04-22 16:07 | ALLERGY STATUS TO OTH | [facility] | | | DRUG/MEDS/BIOL SUBST STATUS | | | | | | + + + + | 2023-04-22 16:07 | LATEX ALLERGY STATUS | [facility] | + + + + | 2023-04-24 05:52 | NICOTINE DEPENDENCE, | [facility] | | | UNSPECIFIED, UNCOMPLICATED | | + + + + | 2023-04-24 05:52 | NAUSEA WITH VOMITING, | [facility] | | | UNSPECIFIED | | + + + + | 2023-04-24 05:52 | PARESTHESIA OF SKIN | [facility] | + + + + | 2023-04-24 05:52 | OTHER MANAGER CAREER (CURRENT) | [facility] | | | DRUG THERAPY | | + + + + | 2023-04-24 05:52 | ALLERGY STATUS TO OTHER | [facility] | | | ANTIBIOTIC AGENTS STATUS | | + + + + | 2023-04-24 05:52 | ALLERGY STATUS TO NARCOTIC | [facility] | | | AGENT STATUS | | + + + + | 2023-04-24 05:52 | ALLERGY STATUS TO OTH | [facility] | | | DRUG/MEDS/BIOL SUBST STATUS | | | | | | + + + + | 2023-04-24 05:52 | LATEX ALLERGY STATUS | [facility] | + + + + | 2023-04-26 08:59 | PLEURODYNIA | [facility] | + + + + Procedures No information. Results/Labs No information. Social History + + + + | date | description | facility | + + + + | 2022-11-07 00:00 | Ex-smoker | [facility] | | | | [facility] | + + + + | 2023-02-02 00:00 | Current smoker | [facility] | | | | [facility] | + + + + Vital Signs + + +---------+---------+ | date | measurement | value | units | + + +---------+---------+ | 2023-01-25 00:00 | BMI | 27.65 | kg/m2 | + + +---------+---------+ | 2023-01-25 00:00 | BP_diastolic | 62 | mmHg | + + +---------+---------+ | 2023-01-25 00:00 | BP_systolic | 98 | mmHg | + + +---------+---------+ | 2023-01-25 00:00 | heart_rate | 84 | /min | + + +---------+---------+ | 2023-01-25 00:00 | height_metric | 152.4 | cm | + + +---------+---------+ | 2023-01-25 00:00 | height_standard | 60 | in | + + +---------+---------+ | 2023-01-25 00:00 | weight_metric | 64.23 | kg | + + +---------+---------+ | 2023-01-25 00:00 | weight_standard | 141.6 | lb | + + +---------+---------+"
--- OUTSIDE RECORDS SUMMARY | ~2023-05-06 | XMS | Continuity of Care Document ---
Demographics + + + | Address | [address] | | | [place] [address] | + + + | Preferred Language | Unknown | + + + | Marital Status | | + + + | Spiritism Affiliation | Unknown | + + + | Race | White | + + + | Ethnic Group | Not or | + + + Author + + + | Author | [facility] | + + + | Organization | [facility] | + + + | Address | [address] | | | [place] [address] | + + + | Phone | | + + + Care Team Providers + + + + | [facility] Worker Name | Role | Phone | [...] (no severity) | | | | [facility] [place] [facility] | | | | | | Center | | | + + + + + + | (no date) | TRAMADOL | [facility] | (no reaction) | (no severity) | | | | [facility] [place] [facility] | | | [facility] | | Center | | | + + + + + + | (no date) | | [facility] | (no reaction) | (no severity) | | | SULFAMETHOXAZOL | [facility] [place] | | | | | [facility]TR[facility] | [facility] | | | | | | Professional | | | | | | Center | | | + + + + + + | (no date) | CODEINE | [facility] | (no reaction) | (no severity) | | | | [facility] [place] [facility] Professional | | | | | | Center | | | + + + + + + | (no date) | TRAMADOL | [facility] | (no reaction) | (no severity) | | | | [facility] [place] [facility] | | [facility] | | | [facility] | | | + + + + + + | (no date) | | [facility] | (no reaction) | (no severity) | | | SULFAMETHOXAZOL | [facility] [place] | | | | | [facility]TR[facility] | | [facility] | Professional | | | | | | Center | | | + + + + + + | (no date) | | [facility] | (no reaction) | (no severity) | | | SULFAMETHOXAZOL | [facility] [place] | | | | | [facility]TR[facility] | | [facility] Professional | | | | | | Center | | | + + + + + + | (no date) | | [facility] | (no reaction) | (no severity) | | | SULFAMETHOXAZOL | [facility] [place] | | | | | [facility]TRIM[facility] | | [facility] Professional | | | | | | Center | | | + + + + + + | (no date) | | [facility] | (no reaction) | (no severity) | | | SULFAMETHOXAZOL | [facility] [place] | | | | | [facility]TRIM[facility] | [facility] | | | | | | Professional | | | | | | Center | | | + + + + + + | (no date) | CODEINE | [facility] | (no reaction) | (no severity) | | | | [facility] [place] [facility] | | | [facility] Professional | | | | | | Center | | | + + + + + + | (no date) | CODEINE | [facility] | (no reaction) | (no severity) | | | | [facility] [place] [facility] | [facility] | | | | | | Center | | | + + + + + + | (no date) | | [facility] | (no reaction) | (no severity) | | | SULFAMETHOXAZOL | [facility] [place] | | | | | [facility]TR[facility] | | | | | | Center | | | + + + + + + | (no date) | | [facility] | (no reaction) | (no severity) | | | SULFAMETHOXAZOL | [facility] [place] | | | | | [facility]TR[facility] | [facility] | | [facility] | | Professional | | | | | | Center | | | + + + + + + | (no date) | ONDANSETRON | [facility] | (no reaction) | (no severity) | | | | [facility] [place] [facility] | [facility] | | | | | | Center | | | + + + + + + | (no date) | BUPROPION | [facility] | (no reaction) | (no severity) | | | | [facility] [place] [facility] | | | | | | Center | | | + + + + + + | (no date) | ONDANSETRON | [facility] | (no reaction) | (no severity) | | | | [facility] [place] [facility] | [facility] | | | | | | Center | | | + + + + + + | (no date) | | [facility] | (no reaction) | (no severity) | | | SULFAMETHOXAZOL | [facility] [place] | | | | | [facility]TRIM[facility] | [facility] | | [facility] | Professional | | | | | | Center | | | + + + + + + | (no date) | | [facility] | (no reaction) | (no severity) | | | SULFAMETHOXAZOL | [facility] [place] | | | | | [facility]TRIM[facility] | [facility] | | | | | | Professional | | | | | | Center | | | + + + + + + | (no date) | TRAMADOL | [facility] | (no reaction) | (no severity) | | | | [facility] [place] [facility] | [facility] | | | | | | [facility] | | | + + + + + + | (no date) | | [facility] | (no reaction) | (no severity) | | | SULFAMETHOXAZOL | [facility] [place] | | | | | [facility]-TRIM[facility]OP[facility] | | | [facility] | | Professional | | | | | | Center | | | + + + + + + | (no date) | CODEINE | [facility] | (no reaction) | (no severity) | | | | [facility] [place] [facility] | [facility] Professional | | | | | | Center | | | + + + + + + | (no date) | CODEINE | [facility] | (no reaction) | (no severity) | | | | [facility] [place] [facility] | | | | | | Center | | | + + + + + + | (no date) | CODEINE | [facility] | (no reaction) | (no severity) | | | | [facility] [place] [facility] | | | | | | Center | | | + + + + + + | (no date) | TRAMADOL | [facility] | (no reaction) | (no severity) | | | | [facility] [place] [facility] | | | | | | [facility] | | | + + + + + + | (no date) | ONDANSETRON | [facility] | (no reaction) | (no severity) | | | | [facility] [place] [facility] | | | | | | Center | | | + + + + + + | (no date) | CODEINE | [facility] | (no reaction) | (no severity) | | | | [facility] [place] [facility] | | | | | | Center | | | + + + + + + | (no date) | CODEINE | [facility] | (no reaction) | (no severity) | | | | [facility] [place] [facility] | | | | | | Center | | | + + + + + + | (no date) | Unknown | [facility] | (no reaction) | (no severity) | | | | [facility] [place] [facility] | | | | | | [facility] | | | + + + + + + | (no date) | | [facility] | (no reaction) | (no severity) | | | SULFAMETHOXAZOL | [facility] [place] | | | | | E[facility]TRIMETH[facility] | [facility] | | | [facility] | | Professional | | | | | | Center | | | + + + + + + | (no date) | TRAMADOL | [facility] | (no reaction) | (no severity) | | | | [facility] [place] [facility] | | | | | | [facility] | | | + + + + + + | (no date) | | [facility] | (no reaction) | (no severity) | | | SULFAMETHOXAZOL | [facility] [place] | | | | | [facility] | | [facility] Professional | | | | | | Center | | | + + + + + + | (no date) | Nausea | [facility] | (no reaction) | (no severity) | | | | [facility] [place] [facility] | | | | | | Center | | | + + + + + + | (no date) | BUPROPION | [facility] | (no reaction) | (no severity) | | | | [facility] [place] [facility] | | | | | | Center | | | + + + + + + | (no date) | Anxiety | [facility] | (no reaction) | (no severity) | | | | [facility] [place] [facility] | | | | | | Center | | | + + + + + + | (no date) | ONDANSETRON | [facility] | (no reaction) | (no severity) | | | | [facility] [place] [facility] | | | | | | Center | | | + + + + + + | (no date) | | [facility] | (no reaction) | (no severity) | | | SULFAMETHOXAZOL | [facility] [place] | | | | | [facility]TRIM[facility] | | [facility] | | | | | | Center | | | + + + + + + | (no date) | | [facility] | (no reaction) | (no severity) | | | SULFAMETHOXAZOL | [facility] [place] | | | | | [facility]TRIM[facility] | [facility] | | | | | | Professional | | | | | | Center | | | + + + + + + | (no date) | TRAMADOL | [facility] | (no reaction) | (no severity) | | | | [facility] [place] [facility] | | | | | | [facility] | | | + + + + + + | (no date) | TRAMADOL | [facility] | (no reaction) | (no severity) | | | | [facility] [place] [facility] | | | | | | Center | | | + + + + + + | (no date) | CODEINE | [facility] | (no reaction) | (no severity) | | | | [facility] [place] [facility] | | | | | | Center | | | + + + + + + | (no date) | BUPROPION | [facility] | (no reaction) | (no severity) | | | | [facility] [place] [facility] | | | | | | Center | | | + + + + + + | (no date) | ONDANSETRON | [facility] | (no reaction) | (no severity) | | | | [facility] [place] | | | | | | [facility] [...] + | (no date) | BUPROPION | [facility] | (no reaction) | (no severity) | [facility] | | | + + + + + + | (no date) | CODEINE | [facility] | (no reaction) | (no severity) | | [facility] | [facility] Hospital | | | + + + + + + | (no date) | ONDANSETRON | [facility] | (no reaction) | (no severity) | | | | [facility] | | | | Hospital | | | + + + + + + | (no date) | | [facility] | (no reaction) | (no severity) | | | SULFAMETHOXAZOL | [facility] | | | | | E[facility]TRIM[facility]IM | Hospital | | | + + + + + + | (no date) | TRAMADOL | [facility] | (no reaction) | (no severity) | | | | [facility] | | | | | | Hospital | | | + + + + + + | (no date) | CODEINE | [facility] | (no reaction) | (no severity) | | | | [facility] [place] | | | | | | Crest [...] | desvenlafaxine succinate | [facility] [place] | | | 25 mg 24hr extended release | [facility] | | | oral tablet | | + + + + | 2022-10-11 00:00 | acycycloguanosine 400 mg | [facility] | | | oral tablet | [facility] | + + + + | 2018-10-04 00:00 | baclofen 20 mg oral tablet | [facility] [place] | | | | [facility] | + + + + | 2023-01-25 00:00 | clonazepam 0.5 mg oral | [facility] | | | tablet | [facility] | + + + + | 2022-11-02 00:00 | clonazepam 1 mg oral | [facility] | | | tablet | [facility] | + + + + | 2023-02-02 00:00 | naproxen 250 mg oral | [facility] | | | tablet | [facility] | + + + + | 2023-02-02 00:00 | spironolactone 100 mg oral | [facility] | | | tablet | [facility] | + + + + | 2022-10-10 00:00 | lamotrigine 150 mg oral | [facility] | | | tablet | [facility] | + + + + | 2018-03-05 00:00 | [id number] 200 actuat | [facility] | | | albuterol 0.09 mg/actuat | [facility] | | | metered dose inhaler | | + + + + | 2021-05-04 00:00 | gabapentin 800 mg oral | [facility] | | | tablet | [facility] | + + + + | 2023-01-04 00:00 | sertraline (as sertraline | [facility] | | | hcl) 100 mg oral tablet | [facility] | + + + + | 2019-12-03 00:00 | sumatriptan 100 mg | [facility] | | | (sumatriptan succinate 140 | [facility] | | | mg) oral tablet | | + + + + | 2023-01-20 00:00 | buprenorphine 8 mg | [facility] | | | sublingual tablet | [facility] | + + + + | 2022-10-26 00:00 | trazodone hydrochloride 50 | [facility] | | | mg oral tablet | [facility] | + + + + | 2021-05-13 00:00 | guanfacine 4 mg (as | [facility] | | | guanfacine hydrochloride | [facility] | | | 4.56 mg) 24 hr extended | | | | release oral tablet | | + + + + | 2023-01-18 00:00 | promethazine hydrochloride | [facility] | | | 25 mg oral tablet | [facility] | + + + + Problems + + + + | date | description | facility | + + + + | 2021-01-06 00:00 | thoracic outlet syndrome | [facility] | | | (disorder) | [facility] | + + + + | 2021-01-06 00:00 | TOS (thoracic outlet | [facility] | | | syndrome) | [facility] | + + + + | 2021-03-02 14:17:27 | Other chronic pain | [facility] | | | | [facility] | + + + + | 2021-03-02 14:17:27 | Pain in right shoulder | [facility] | | | | [facility] | + + + + | 2021-03-02 14:17:27 | Pain in left shoulder | [facility] | | | | [facility] | + + + + | 2021-03-02 14:17:27 | Cervicalgia | [facility] | | | | [facility] | + + + + | 2021-03-02 14:17:27 | Paresthesia of skin | [facility] | | | | [facility] | + + + + | 2021-05-28 15:43:53 | Other lesions of median | [facility] | | | nerve, unspecified upper | [facility] | | | limb | | + + + + | 2021-05-28 15:43:53 | Lesion of ulnar nerve, | [facility]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 | [facility] | + + + + | 2021-05-28 15:43:53 | Other muscle spasm | [facility] | | | | [facility] | + + + + | 2022-02-17 21:32 | Acute gastritis without | [facility] | | | bleeding | [facility] | + + + + | 2022-02-17 21:32 | Nausea with vomiting, | [facility] | | | unspecified | [facility] | + + + + | 2022-08-09 09:32 | 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 | [facility] | | | [...] INTRACTABLE, WITHOUT STATUS | | | | [place] | | + + + + | 2022-11-29 13:17 | VOMITING, UNSPECIFIED | [facility] | + + + + | 2022-11-29 13:17 | ADVERSE EFFECT OF OTH | [facility] | | | ANTIPSYCHOTICS AND | | | | NEUROLEPT | | + + + + | 2022-11-29 13:17 | OTHER RESIDENTIAL (CURRENT) | [facility] | | | DRUG [...] + + | 2023-02-21 13:50 | OTHER RESIDENTIAL (CURRENT) | [facility] | | | DRUG [...] + + | 2023-03-21 18:24 | OTHER RESIDENTIAL (CURRENT) | [facility] | | | DRUG [...] + + | 2023-03-25 08:05 | OTHER ASSEMBLER CONVERTIBLE TOP (CURRENT) | [facility] | | | DRUG [...] + + | 2023-04-22 16:07 | OTHER ASSEMBLER CONVERTIBLE TOP (CURRENT) | [facility] | | | DRUG [...] + + | 2023-04-24 05:52 | OTHER ASSEMBLER CONVERTIBLE TOP (CURRENT) | [facility] | | | DRUG [...] 2022-11-07 00:00 | Ex-smoker | [facility] | | | | [facility] | + + + + | 2023-02-02 00:00 | Current smoker | [facility] | | | | [facility] [...]
--- OUTSIDE RECORDS SUMMARY | 2023-05-06 22:12 | XMS ---
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 - Patient with suicidal and/or homicidal ideations eloped. - Patient eloped with IV in place. Details: Patient LWBS. Patient did not like who ER provider was. Elopement at [facility] 03/15/2022 16:44 - Patient eloped before treatment completed. - Patient with suicidal and/or homicidal ideations eloped. - Patient eloped with IV in place. Details: PATIENT LWBS CRITERIA MET - 6 ED Visits in 6 Months - [facility] - 2 Visits in 30 Days CARE PROVIDERS ISABELA HIGUERA Family Medicine: Adult Medicine 01/20/2020-Current PHONE: [phone] Giancarlo Quarles Community Health Worker 11/16/2019-Cipriano Lennon - PHONE: [phone] -, Carlo- Dentist: [facility] PHONE: [phone] Almaz Zurita Nurse Practitioner: Family Current PHONE: [phone] Care Guidelines exist for the following facilities: [facility] [place] ( 12/11/2019 ) Care History Medical/Surgical 11/18/2020 [facility] Care Recommendation: - PLEASE REVIEW PDMP - [place] - USE EXTREME CAUTION IN GIVING NARCOTICS. - Avoid Discharge Narcotic prescriptions if at all possible. Physician discretion. 11/18/2020 [facility] - [facility] NOTIFIED [facility] - CASE MANAGEMENT TEAM- PATIENT WOULD BENEFIT FROM MEDICAL CASE MANAGEMENT AND [facility] - [facility] CASE MANAGEMENT WILL BE IN CONTACT WITH PATIENT. 11/17/2020 [facility] - PATIENT WAS SEEN THE OTHER DAY AT THE PCP OFFICE- PATIENT WAS UPSET WITH PROVIDER AND STATED SHE WANTED TO FIND ANOTHER PCP- - PATIENT HAS AN APT TODAY 11/17/20 WITH PCP LAINE RIZVI. [place] VISIT COUNT (12 MO.) 10 BRENDA [facility] [employer] [address] TOTAL 11 NOTE: Visits indicate total known visits. ED/UCC VISIT TRACKING (12 MO.) 05/06/2023 22:10 [facility] [place] TYPE: Emergency COMPLAINT: - NUMBNESS BACK AND RIB PAIN 04/26/2023 14:32 [facility] [place] [address] [place] TYPE: Emergency DIAGNOSES: - Noninfective gastroenteritis and colitis, unspecified - Paresthesia of skin - PAIN IN NECK 04/26/2023 13:26 [facility] [place] TYPE: Emergency COMPLAINT: - NUMBNESS AROUND NECK, LOWER BACK/LEGS PAIN 04/24/2023 05:52 [facility] [place] TYPE: Emergency COMPLAINT: - NUMBNESS AND N/V DIAGNOSES: - Allergy status to narcotic agent - Allergy status to other antibiotic agents - Allergy status to other drugs, medicaments and biological substances - Latex allergy status - Nausea with vomiting, unspecified - Nicotine dependence, unspecified, uncomplicated - Other fpc (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 - Paresthesia of skin 04/22/2023 16:07 BREN[facility] TYPE: Emergency COMPLAINT: - RT SIDED NUMBESS DIAGNOSES: - Allergy status to narcotic agent - Allergy status to other antibiotic agents - Allergy status to other drugs, medicaments and biological substances - Allergy status to sulfonamides - Brachial plexus disorders - Latex allergy status - Nicotine dependence, unspecified, uncomplicated - Other fpc (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 - Pain in right shoulder 03/25/2023 08:05 [facility] [place] TYPE: Emergency COMPLAINT: - VOMITING,FEVER DIAGNOSES: - Allergy status to narcotic agent - Allergy status to other antibiotic agents - Allergy status to other drugs, medicaments and biological substances - Allergy status to sulfonamides - Fever, unspecified - Latex allergy status - Nicotine dependence, unspecified, uncomplicated - Other fpc (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 - Viral infection, unspecified 03/21/2023 18:24 [facility] [place] TYPE: Emergency COMPLAINT: - SKIN PROBLEM DIAGNOSES: - Adverse effect of other specified systemic anti-infectives and antiparasitics, initial encounter - Allergy status to narcotic agent - Allergy status to other drugs, medicaments and biological substances - Allergy status to sulfonamides - Latex allergy status - Nicotine dependence, unspecified, uncomplicated - Other roasterman (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 - Urinary tract infection, [...] - Nicotine dependence, unspecified, uncomplicated - Other roasterman (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 11/29/2022 13:17 [facility] [...] - Nicotine dependence, unspecified, uncomplicated - Other roasterman (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 - Vomiting, unspecified 08/12/2022 [...] not elsewhere classified, initial encounter - Other fpc (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 - Paresthesia of skin - Post-traumatic stress disorder, unspecified - Rash and other nonspecific skin eruption 07/19/2022 08:[address] [facility] [place] TYPE: Emergency COMPLAINT: - JOINT PAIN, FATIGUE, HEADACHE, R SHOULDER PAIN DIAGNOSES: - Allergy status to narcotic agent - Allergy status to other antibiotic agents - Allergy status to other drugs, medicaments and biological substances - Latex allergy status - Migraine, unspecified, not intractable, without status migrainosus - Nicotine dependence, unspecified, uncomplicated - Other fpc (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 - Pain in right shoulder - Post-traumatic stress disorder, unspecified INPATIENT VISIT TRACKING (12 MO.) No inpatient visits to display in this time frame [id number]
[2023-05-06] MEDS ORDERED: ACYCLOVIR200 MG PO (22:23)
[2023-05-06] MEDS ORDERED: CLONIDINE HCL0.1 MG PO (22:25)
[2023-05-06 23:18] VITALS: BP 125/87
== END 2023-05-06 23:18 | disposition left against medical advice (07) ==
LOC: ED 22:08
DX: R20.2 Paresthesia of skin (principal); F17.200 Nicotine dependence, unspecified, uncomplicated; Z53.29 Procedure and treatment not carried out because of patient's decision for other reasons; Z88.5 Allergy status to narcotic agent; Z88.2 Allergy status to sulfonamides; Z88.8 Allergy status to other drugs, medicaments and biological substances; Z91.040 Latex allergy status; Z88.1 Allergy status to other antibiotic agents; Z79.899 Other long term (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
CPT/HCPCS: 99283

== ENCOUNTER 2023-08-27 10:03 | Emergency (ER) | payer OTHER ==
[~2023-08-27] VITALS: Ht 152.4 cm; Wt 62.9 kg
[~2023-08-27 10:03] MED LIST changes: +ACYCLOVIR200 MG PO; +CLONIDINE HCL0.1 MG PO; +COMPAZINE25 MG PR
[2023-08-27 10:20] LABS: BILIRUBIN, URINE POSITIVE (negative); BLOOD/HGB, URINE NEGATIVE (Negative); KETONE, URINE TRACE (Negative); LEUK ESTERASE, URINE NEGATIVE (negative); NITRITE, URINE NEGATIVE (negative)
[2023-08-27 10:26] LABS: BASOPHILS 0.3 % (0-2); HEMATOCRIT 39.6 % (35.0-50.0); HEMOGLOBIN 13.3 g/dL (12.0-18.0); LYMPHOCYTES 17.4 % (24-44); MCH 33.5 (27-36); MCHC 33.5 g/dl (30-36); MCV 99.9 fl (81-99); MONOCYTES 4.5 % (0-12); NEUTROPHILS 76.8 % (39-80); PLATELET COUNT 259 K/uL (140-440); RBC 3.96 M/ul (4.3-5.7); RDW 13.2 (10.5-15.0)
[2023-08-27] MEDS ORDERED: CELECOXIB200 MG PO (10:26)
[2023-08-27 10:41] LABS: ALBUMIN 3.8 g/dL (3.4-5.0); ALBUMIN/GLOBULIN RATIO 1.23 (1.1-2.4); ANION GAP 12.4 (7-21); BILIRUBIN, TOTAL 0.2 ng/dL (0.2-1.0); BUN/CREATININE RATIO 12.82 (6.0-28.6); CALCIUM 8.2 mg/dL (8.5-10.1); CREATININE, SERUM 0.78 mg/dL (0.55-1.02); POTASSIUM 3.4 mmol/L (3.5-5.1); PROTEIN, TOTAL 6.9 g/dL (6.4-8.2)
[2023-08-27 11:57] VITALS: BP 106/73
== END 2023-08-27 11:57 | disposition home or self-care (01) ==
LOC: ED 10:03
PROVIDERS: Emergency Medicine
DX: B34.9 Viral infection, unspecified (principal); E86.0 Dehydration; F17.200 Nicotine dependence, unspecified, uncomplicated; Z91.040 Latex allergy status; Z88.5 Allergy status to narcotic agent; Z88.8 Allergy status to other drugs, medicaments and biological substances; Z79.899 Other long term (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
CPT/HCPCS: 36415; 80053; 81003; 85025; 96374; 99284-25; J1885; J7030

== ENCOUNTER 2023-09-20 11:10 | Emergency (ER) | payer OTHER ==
[~2023-09-20] VITALS: Ht 152.4 cm; Wt 64.0 kg
[~2023-09-20 11:10] MED LIST changes: +CELECOXIB200 MG PO
[2023-09-20 12:14] LABS: BASOPHILS 1.5 % (0-2); EOSINOPHILS 1.4 % (0-6); HEMATOCRIT 38.1 % (35.0-50.0); HEMOGLOBIN 12.8 g/dL (12.0-18.0); LYMPHOCYTES 45.4 % (24-44); MCH 33.3 (27-36); MCHC 33.6 g/dl (30-36); MONOCYTES 8.6 % (0-12); NEUTROPHILS 43.1 % (39-80); PLATELET COUNT 206 K/uL (140-440); RBC 3.85 M/ul (4.3-5.7)
[2023-09-20 12:24] LABS: ALBUMIN 3.1 g/dL (3.4-5.0); ALBUMIN/GLOBULIN RATIO 0.82 (1.1-2.4); ANION GAP 12.2 (7-21); BILIRUBIN, TOTAL 0.1 ng/dL (0.2-1.0); BUN/CREATININE RATIO 10.52 (6.0-28.6); CALCIUM 8.1 mg/dL (8.5-10.1); CREATININE, SERUM 0.76 mg/dL (0.55-1.02); POTASSIUM 4.2 mmol/L (3.5-5.1); PROTEIN, TOTAL 6.9 g/dL (6.4-8.2)
[2023-09-20 12:42] LABS: INFLUENZA B NAA NEGATIVE (NEGATIVE); RESPIRATORY SYNCYTIAL VIR NAA NEGATIVE (NEGATIVE)
[2023-09-20 13:54] VITALS: BP 101/68
== END 2023-09-20 13:53 | disposition home or self-care (01) ==
LOC: ED 11:10
PROVIDERS: Emergency Medicine
DX: J10.1 Influenza due to other identified influenza virus with other respiratory manifestations (principal); F17.200 Nicotine dependence, unspecified, uncomplicated; Z91.040 Latex allergy status; Z88.2 Allergy status to sulfonamides; Z88.5 Allergy status to narcotic agent; Z79.899 Other long term (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; Z11.52 Encounter for screening for COVID-19
CPT/HCPCS: 36415; 80053; 85025; 87502; 96374; 99284-25; C9803; J1885; U0002

== ENCOUNTER 2025-04-19 16:34 | Emergency (ER) | payer OTHER ==
[~2025-04-19] VITALS: Ht 152.4 cm; Wt 63.9 kg
[~2025-04-19 16:34] MED LIST changes: +METHADONE HCL10 MG PO
[2025-04-19 17:25] LABS: BASOPHILS 0.7 % (0.1-1.2); EOSINOPHILS 0.8 % (0.7-5.8); LYMPHOCYTES 20.2 % (19.3-51.7); MCH 33.0 PG (25.6-32.2); MCHC 34.0 g/dL (32.2-35.5); MCV 96.9 fL (79.4-94.8); MONOCYTES 4.9 % (4.7-12.5); NEUTROPHILS 73.1 % (34.0-71.1); RBC 3.91 M/uL (3.93-5.22)
[2025-04-19 17:38] LABS: ALT (SGPT) 40.0 U/L (14-59); AST (SGOT) 28.0 U/L (15-37); GLOMERULAR FILTRATION RATE,EST 114.0 mL/min (>60); PROTEIN, TOTAL 7.1 g/dL (6.4-8.2); UREA NITROGEN 8.0 mg/dL (7-18)
[2025-04-19] MEDS ORDERED: LORazepam 1 MG TAB PO ONE (17:45)
[2025-04-19] MEDS ORDERED: PROMETHAZINE HCL 25 MG TAB PO ONE (17:45)
[2025-04-19] MEDS ORDERED: ONDANSETRON 4 MG TAB ODT SL ONE (17:45)
[2025-04-19] MEDS ORDERED: METHADONE HCL 10 MG TAB PO ONE (17:45)
[2025-04-19 18:41] LABS: CORONAVIRUS COVID-19 AG POSITIVE (NEGATIVE)
[2025-04-19] MEDS ORDERED: CLONIDINE HCL0.1 M1 PO (19:20)
[2025-04-19] MEDS ORDERED: ATIVAN1 MG PO (19:20)
[2025-04-19] MEDS ORDERED: ONDANSETRON ODT4 MG PO (19:20)
[2025-04-19 21:58] VITALS: BP 99/55
--- NOTE | 2025-04-21 14:48 | EKG ---
[facility] [address] [place], [place] [address] Signed Normal sinus rhythm Nonspecific ST and T wave abnormality Abnormal ECG When compared with ECG of 12-AUG-2022 22:01, No significant change was found Confirmed by Stephanie Downey MD ([id number]) on 04/21/2025 2:48:08 PM Electronically Signed By: STEPHANIE DOWNEY MD 04/21/25 1448 PATIENT NAME: DERRICK BEDOYA Electrocardiogram DATE OF : 84 PHYSICIAN: STEPHANIE DOWNEY MD REPORT #: [id number] REPORT IS CONFIDENTIAL AND NOT TO BE RELEASED WITHOUT AUTHORIZATION
== END 2025-04-19 22:01 | disposition home or self-care (01) ==
LOC: ED 16:34
PROVIDERS: Emergency Medicine
DX: U07.1 COVID-19 (principal); F17.200 Nicotine dependence, unspecified, uncomplicated; Z88.2 Allergy status to sulfonamides; Z88.1 Allergy status to other antibiotic agents; Z91.040 Latex allergy status; Z88.8 Allergy status to other drugs, medicaments and biological substances; Z79.899 Other long term (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
CPT/HCPCS: 36415; 80053; 85025; 93005; 93010; 96372; 99284; A9270-GY; J1790

== ENCOUNTER 2025-05-04 13:20 | Emergency (ER) | payer OTHER ==
[~2025-05-04] VITALS: Ht 152.4 cm; Wt 58.4 kg
[~2025-05-04 13:20] MED LIST changes: +ATIVAN1 MG PO; +CLONIDINE HCL0.1 M1 PO; +ONDANSETRON ODT4 MG PO
[2025-05-04] MEDS ORDERED: METHADONE IN10 MG/ML PO (13:34)
[2025-05-04] MEDS ORDERED: CEPHALEXIN500 MG PO (13:35)
[2025-05-04] MEDS ORDERED: LIDOCAINE/RACEPINEP/TETRACAINE 3 ML SYR TOP ONE (14:30)
[2025-05-04 14:57] LABS: BASOPHILS 0.5 % (0.1-1.2); EOSINOPHILS 0.5 % (0.7-5.8); LYMPHOCYTES 15.0 % (19.3-51.7); MCH 32.8 PG (25.6-32.2); MCHC 33.7 g/dL (32.2-35.5); MCV 97.2 fL (79.4-94.8); MONOCYTES 5.1 % (4.7-12.5); NEUTROPHILS 78.7 % (34.0-71.1); RBC 3.57 M/uL (3.93-5.22)
[2025-05-04 15:12] LABS: ALT (SGPT) 24.0 U/L (14-59); AST (SGOT) 16.0 U/L (15-37); GLOMERULAR FILTRATION RATE,EST 115.0 mL/min (>60); PROTEIN, TOTAL 6.7 g/dL (6.4-8.2); UREA NITROGEN 12.0 mg/dL (7-18)
[2025-05-04] MEDS ORDERED: OXYCODONE HCL 5 MG TAB PO ONE (15:45)
[2025-05-04 15:54] VITALS: BP 95/60
== END 2025-05-04 15:56 | disposition home or self-care (01) ==
LOC: ED 13:20
PROVIDERS: Emergency Medicine
DX: L02.512 Cutaneous abscess of left hand (principal); L03.114 Cellulitis of left upper limb; F17.200 Nicotine dependence, unspecified, uncomplicated; Z91.040 Latex allergy status; Z88.5 Allergy status to narcotic agent; Z88.8 Allergy status to other drugs, medicaments and biological substances; Z79.2 Long term (current) use of antibiotics
CPT/HCPCS: 10060; 36415; 80053; 85025; 96365; 99283-25; A9270; J0696